=== PATIENT | female | born 1940 | race Caucasian/White ===

== ENCOUNTER 2018-07-14 08:42 | Emergency (ER) | payer MEDICARE, SELFPAY ==
[2018-07-14 08:43] VITALS: BP 160/70; PULSE 69; RESP 16; TEMP 36.3; O2SAT 99; BMI 25.5
--- NOTE | 2018-07-14 09:04 | RAD_ITS ---
STUDY: X-RAY - RIGHT KNEE REASON FOR EXAM: Female, 78 years old. Right-sided knee pain with loss of range of motion. TECHNIQUE: 4 view(s) of the knee. COMPARISON: None. FINDINGS: Normal visualized distal femur. Normal visualized proximal tibia and fibula. There is arthrosis of the proximal tibiofibular articulation. There is no demonstrated fracture. There is mild degenerative arthrosis of the medial femorotibial compartment. There is mild degenerative arthrosis of the lateral femorotibial compartment. There is moderate degenerative arthrosis of the patellofemoral articulation. There is a small joint effusion. There appear to be multiple soft tissue calcifications posterior to the knee. There is soft tissue swelling. RAD/Knee 4 or More Views IMPRESSION: 1. Degenerative arthropathy of the right knee with joint effusion. 2. No definite evidence for acute fracture. If there is still clinical concern for acute fracture, follow-up radiographs in 7-10 days maybe helpful in evaluating a healing radiographically occult fracture. Electronically Signed: Rosanne Champagne MD at 10:01 EDT , Service support ,
--- NOTE | 2018-07-14 10:02 | ED.DCSUM_ITS ---
- ER Visit Summary Date of Service: 07/14/18 Chief Complaint: Right knee pain History of Present Illness: The patient is a 78 F who states that she got up last night to urinate and when she went to turn she felt a grinding sensation in the right knee. She now notes swelling of the knee and pain over the inferior medial aspect of the knee. The patient states that a couple weeks ago she received an injection to the knee by pain management. She has been able to bear weight with the assistance of her . states that they have a walker she can use at home as well as a chair left. Physical Examination: Afebrile vital signs stable Gen: Well-nourished well-developed Head: Normocephalic atraumatic Eyes: Perrl EOMI ENT: TMs clear no rhinorrhea moist mucous membranes Neck: Supple no lymphadenopathy no JVD nontender CVS: Regular rate rhythm no murmurs normal S1-S2 Respiratory: No distress clear to auscultation bilaterally chest nontender Abdomen: Soft nontender nondistended normal bowel sounds no masses Back: Nontender Extremity: Right knee demonstrates infrapatellar swelling. There is no large joint effusion palpable. She has pain over the medial inferior aspect of the patella. Ligament testing appears stable. Skin: Normal color no rash Neuro: alert orientated ?3 CN II-XII intact normal strength sensation reflexes gait cerebellar Psych: Normal affect normal mood Test Results: X-rays revealed significant degenerative changes of the patella. There is no obvious fracture. Noted small joint effusion. Emergency Department Course and Treatment: Patient will use an Jay wrap. I suspect the grinding sensation she felt was the patella grinding on the distal femur. I recommend ice anti-inflammatories and limited range of motion for a short period. She can use her walker for support. We did discuss the possibility of meniscal and ligamentous injury and the need for follow-up if she is not improving. Impression: 1. Right knee pain 2. Degenerative joint disease of right knee This note was generated with [employer] dictation software. It may contain incorrect words, spelling, and punctuation that were not noted in review of the chart prio r to signing ED Disposition - Plan for ED Patient: Disposition: Home or Assisted Living Chief Complaint: Fall Instructions: ED Degenerative Joint Disease Referrals: Alberto Herr MD [Primary Care Provider] - 10-14 Days if not better Additional Instructions: Please use your walker for support Please apply ice to the knee and 20-minute sessions today and tomorrow Anti-inflammatories or Tylenol for pain If not improving please follow-up with your primary care physician.
[2018-07-14 10:20] VITALS: BP 138/77; PULSE 81; RESP 16; O2SAT 96
== END 2018-07-14 10:21 | disposition home or self-care (01) ==
PROVIDERS: Emergency Provider Emergency Medicine; Family Provider Internal Medicine; PCP Internal Medicine
DX: M17.11 Unilateral primary osteoarthritis, right knee (principal); I42.8 Other cardiomyopathies; I10 Essential (primary) hypertension; K21.9 Gastro-esophageal reflux disease without esophagitis; Z79.82 Long term (current) use of aspirin; Z79.899 Other long term (current) drug therapy; Z87.891 Personal history of nicotine dependence
CPT/HCPCS: 73564; 99282

== ENCOUNTER 2018-09-09 15:40 | Emergency (ER) | payer MEDICARE, SELFPAY ==
[2018-09-09 15:41] VITALS: BP 142/82; PULSE 73; RESP 17; TEMP 36.6; O2SAT 98; BMI 24.1
--- NOTE | 2018-09-09 15:53 | VDLE_ITS ---
Reason For Study: Foot pain RIGHT GSV is normal. CFV is compressible, spontaneous, phasic, competent and demonstrates normal augmentation. FV is compressible, spontaneous, phasic, competent and demonstrates normal augmentation. POP V is compressible, spontaneous, phasic, competent and demonstrates normal augmentation. T/P Trunk is compressible. PTV is compressible. RT PerV is compressible. Hypoechoic structure noted rt medial pop space measuring 1.6 cx 2.2 cm. Non-vascular. Procedure Exam performed in department. A preliminary report was called and/or faxed to Dr. Michael. Interpretation Summary There is no evidence of right lower extremity deep vein thrombosis. Right greater saphenous vein appears patent and compressible segmentally. Right medial popliteal space 1.6 x 2.2 cm Wilson's cyst Ordering Physician: Garcia Michael Referring Physician: Alberto Herr M.D. Performed By: Gricel Barnes RVT
--- NOTE | 2018-09-09 16:20 | ED.VISSUMM ---
- ER Visit Summary Date of Service: 09/09/18 Chief Complaint: Right leg swelling History of Present Illness: The patient is a 78 F presenting for evaluation secondary to right leg swelling. Patient reports that in July she fell and suffered a knee injury. She ports that she was seen in the emergency department for this and had an x-ray. Since then she has had improvement of her knee pain, but has had some progressive worsening of swelling in her right foot. Patient states that this specifically is gotten worse in the last week. Is causing some pain in her calf and her foot and some difficulty with putting on her shoe. She denies any chest pain or shortness of breath. She denies any fevers. She denies any new injuries. Patient states that she was seen in urgent care and they recommended she come to the ER for an ultrasound. Physical Examination: Physical exam unremarkable except for examination of the right lower extremity. There is trace to +1 edema from the knee to the foot to the patient's right lower extremity. This is nonpitting. There is mild erythema over the dorsum of the foot. No palpable cord, but the calf is tender to palpation. Normal range of motion of the hip knee ankle and foot. Normal sensation over all dermatomes. 2+ DP and PT pulses with normal cap refill. Test Results: Duplex ultrasound of the right leg is negative Emergency Department Course and Treatment: Patient presented for evaluation secondary to unilateral swelling of the leg. Duplex ultrasound was negative. Skin does not appear to be cellulitic, patient has normal circulation, there is no new injuries, I do not believe that this is vascular or infectious in etiology. Patient likely has nonspecific peripheral edema. She was recommended on compression and elevation she will follow-up with primary care. Disposition: Discharge Impression: 1. Right leg peripheral edema This note was generated with [employer] dictation software. It may contain incorrect words, spelling, and punctuation that were not noted in review of the chart prior to signing ED Disposition - Plan for ED Patient: Disposition: Home or Assisted Living Chief Complaint: Lower Extremity Injury Diagnosis: Leg edema, right Instructions: ED Leg Swelling Unilateral Referrals: Alberto Herr MD [Primary Care Provider] - 1 Week
--- NOTE | 2018-09-09 16:23 | ED.DCSUM_ITS ---
- ER Visit Summary Date of Service: 09/09/18 Chief Complaint: Right leg swelling History of Present Illness: The patient is a 78 F presenting for evaluation secondary to right leg swelling. Patient reports that in July she fell and suffered a knee injury. She ports that she was seen in the emergency department for this and had an x-ray. Since then she has had improvement of her knee pain, but has had some progressive worsening of swelling in her right foot. Patient states that this specifically is gotten worse in the last week. Is causing some pain in her calf and her foot and some difficulty with putting on her shoe. She denies any chest pain or shortness of breath. She denies any fevers. She denies any new injuries. Patient states that she was seen in urgent care and they recommended she come to the ER for an ultrasound. Physical Examination: Physical exam unremarkable except for examination of the right lower extremity. There is trace to +1 edema from the knee to the foot to the patient's right lower extremity. This is nonpitting. There is mild erythem a over the dorsum of the foot. No palpable cord, but the calf is tender to palpation. Normal range of motion of the hip knee ankle and foot. Normal sensation over all dermatomes. 2+ DP and PT pulses with normal cap refill. Test Results: Duplex ultrasound of the right leg is negative Emergency Department Course and Treatment: Patient presented for evaluation secondary to unilateral swelling of the leg. Duplex ultrasound was negative. Skin does not appear to be cellulitic, patient has normal circulation, there is no new injuries, I do not believe that this is vascular or infectious in etiology. Patient likely has nonspecific peripheral edema. She was recommended on compression and elevation she will follow-up with primary care. Disposition: Discharge Impression: 1. Right leg peripheral edema This note was generated with [employer] dictation software. It may contain incorrect words, spelling, and punctuation that were not noted in review of the chart prior to signing ED Disposition - Plan for ED Patient: Disposition: Home or Assisted Living Chief Complaint: Lower Extremity Injury Diagnosis: Leg edema, right Instructions: ED Leg Swelling Unilateral Referrals: Alberto Herr MD [Primary Care Provider] - 1 Week
== END 2018-09-09 16:38 | disposition home or self-care (01) ==
PROVIDERS: Emergency Provider Emergency Medicine; Family Provider Internal Medicine; PCP Internal Medicine
DX: R60.0 Localized edema (principal); I42.9 Cardiomyopathy, unspecified; Z79.82 Long term (current) use of aspirin; Z79.899 Other long term (current) drug therapy
CPT/HCPCS: 93971; 99282

== ENCOUNTER 2019-01-02 08:47 | Emergency (ER) | payer MEDICARE, SELFPAY ==
[2019-01-02 08:48] VITALS: BP 161/76; PULSE 74; RESP 16; TEMP 36.1; O2SAT 98; BMI 26.0
--- NOTE | 2019-01-02 09:03 | CT_ITS ---
STUDY: CT ABDOMEN AND PELVIS WITHOUT CONTRAST REASON FOR EXAM: Female, 78 years old. Chronic back pain. 3 week history of right hip pain. RADIATION DOSAGE (If Supplied By Facility): CTDIvol = ( 10.28 ) mGy, DLP = ( 444.25 ) mGycm TECHNIQUE: Transaxial images were obtained from the dome of the diaphragm to the symphysis pubis without oral contrast, and without intravenous contrast. Sagittal and coronal images were reconstructed. Individualized dose optimization techniques were used for this CT. COMPARISON: None. FINDINGS: Mild degree of increased markings at the lung bases suggestive of mild right basilar scarring. Coronary artery calcification. There is a 3.7 cm x 2.3 cm cyst in the superior left lobe of liver. This also evidence of a 1 cm x 0.8 cm cyst in the superior aspect of the right lobe of the liver. Normal gallbladder and extrahepatic biliary system. Borderline splenomegaly. Normal pancreas. Normal bilateral adrenal glands. Mild degree of right hydronephrosis and right hydroureter. No obstructive calculus is seen at this time. This may represent a recently passed calculus. Clinical correlation is recommended. Normal left kidney. Normal visualized stomach. Normal small intestine. Normal colon. The appendix is visualized and appears normal. There is diffuse atherosclerotic calcification of the abdominal aorta and its major visceral branches, without a demonstrated aneurysm. Normal inferior vena cava. There is borderline retroperitoneal lymphadenopathy with enlarged nodes no greater than 10mm in the short axis diameter. Normal urinary bladder. Calcified fibroid uterus. Normal abdominal wall. Mild dextroscoliosis. Moderate degree of disc space narrowing and spondylosis at the L5-S1 level. 50% loss of height of the T11, T12 and L1 vertebrae. Minimal retrolisthesis of L1 on L2. CT/Abdomen/Pelvis without Cont IMPRESSION: Hepatic cysts. Borderline splenomegaly. Mild right hydronephrosis and right hydroureter with no evidence of obstructive uropathy at this time. Degenerative changes of the lumbar spine loss of height of the T11, T12 and L1 vertebrae. Electronically Signed: Jesse Sullivan, at 10:03 EDT , Service support ,
--- NOTE | 2019-01-02 09:08 | ED.DCSUM_ITS ---
- ER Visit Summary Date of Service: 01/02/19 Chief Complaint: Right hip and flank pain History of Present Illness: The patient is a 78 F who presents with right hip and flank pain that has been getting worse over the past few days. Patient denies any trauma or injury. Patient states the pain is sharp and burning. Patient states the pain is worse with walking, moving, and sitting. Patient denies any paresthesias or weakness. Patient states nothing seems to help with the pain. Patient denies any fevers but admits to subjective chills. Patient also states she has been having some shortness of breath because of the pain. She also admits to some nausea because of the pain. Patient states she has a history of chronic back pain but this is different because it is burning and sharp. Physical Examination: Vital signs are stable. Patient is afebrile. Patient is in no acute distress. Oral mucosa is pink and moist. Neck is supple. Trachea is midline. There is no JVD noted. Heart was regular rate and rhythm. Lungs are clear bilaterally. There is good respiratory effort noted. Abdomen is soft. Bowel sounds are normal. There is some mild right CVA tenderness. There is no rebound or guarding noted. There is also tenderness over the right hip. There is no deformity noted. There is no pain with logrolling. There is no calf tenderness or swelling. Test Results: CBC was normal. Basic metabolic profile showed a mild hyponatremia of 133. Urinalysis was normal. Chest x-ray does not show any acute cardiopulmonary process. CT scan of the abdomen and pelvis was obtained. There is mild right hydronephrosis and hydroureter but there is no obstructive uropathy noted. There is no fracture of the right hip or pelvis. Emergency Department Course and Treatment: Patient was given an injection of morphine here. Patient felt better on reevaluation. Patient was able to ambulate here in the emergency department. Patient was instructed to follow-up with her primary care physician in 5-7 days. Patient was given a prescription for meloxicam. Patient was instructed to use ice to the area. Patient understood and was agreeable with the plan. All questions were answered. Disposition: Discharge home Impression: Right hip pain This note was generated with [employer] dictation software. It may contain incorrect words, spelling, and punctuation that were not noted in review of the chart prior to signing ED Disposition - Plan for ED Patient: Disposition: Home or Assisted Living Diagnosis: Right hip pain Instructions: ED Contusion Hip Prescriptions: Meloxicam [Mobic] 15 mg PO DAILY #10 tab Referrals: Alberto Herr MD [Primary Care Provider] - 5-7 Days
[2019-01-02] MEDS: Morphine 4 MG/ML Syringe IV (09:15)
[2019-01-02 09:28] LABS: Absolute Lymphocyte Count 1.16 X10^3/ul (0.83-4.51); Absolute Neutrophil Count 6.8 X10^3/uL (2.0-7.7); Basophil# 0.02 X10^3/uL; Basophil% 0.2 % (0-1); Eosinophil# 0.08 X10^3/uL; Eosinophils% 0.9 % (0-5); Hematocrit 41.7 % (37-47); Hemoglobin 14.7 g/dl (12.0-15.0); Lymphocyte # 1.16 X10^3/ul (4.0); Lymphocyte % 13.2 % (19-41); Mean Corp Hgb Conc 35.3 g/gl (32-36); Mean Corpuscular Hgb 33.8 pg (27.0-32.0); Mean Corpuscular Volume 95.9 fL (81-99); Mean Platelet Vol. 8.8 fl (6.2-12.0); Monocyte# 0.73 X10^3/uL; Monocyte% 8.3 % (0-10); Neutrophil # 6.77 X10^3/uL (2.7-7.7); Neutrophil % 77.3 % (47-70); Platelet Count 190 K/mm3 (150-450); RBC Distribution Width CV 12.7 % (11.6-14.6); RBC Distribution Width SD 44.1 fl (35.1-43.9); Red Blood Count 4.35 M/mm3 (4.2-5.4); White Blood Count 8.8 K/mm3 (4.4-11.0)
[2019-01-02 09:29] LABS: POSITIVE COUNT NO; POSITIVE DIFFERENTIAL NO; POSITIVE MORPHOLOGY NO
--- NOTE | 2019-01-02 09:31 | RAD_ITS ---
STUDY: X-RAY CHEST REASON FOR EXAM: Female, 78 years old. Shortness of breath/dyspnea. TECHNIQUE: AP and lateral views of the chest. COMPARISON: Comparison is made with prior study dated June 11, 2016. FINDINGS: The lungs are clear and expanded. There is no demonstrated pleural abnormality. There is borderline cardiomegaly. Normal mediastinum and rodrick. Normal visualized pulmonary arteries. There is atherosclerotic calcification of the aortic arch with tortuosity. There is demineralization of the osseous structures. There is degenerative osteoarthritis of the bilateral shoulders. There is no demonstrated abnormality of the visualized soft tissue structures of the upper abdomen. RAD/Chest PA and Lateral IMPRESSION: Borderline cardiomegaly. The lungs are clear. Electronically Signed: Jesse Sullivan, at 9:57 EDT , Service support ,
[2019-01-02 09:39] LABS: Anion Gap 8 (5-15); BUN 10 mg/dL (7-18); BUN/Creat Ratio 11.6 RATIO (10-20); Calcium,Total 9.1 mg/dL (8.5-10.1); Chloride 100 mmol/L (98-107); Creatinine, Serum 0.86 mg/dL (0.55-1.02); EST Glomerular Filtration Rate 67 mL/min (>60); Est Glom Filt Rate - Afr Amer 81 mL/min (>60); Estimated Creatinine Clearance 46.95 ml/min; Glucose 97 mg/dL (74-106); Potassium 4.8 mmol/L (3.5-5.1); Sodium Level 133 mmol/L (136-145)
[2019-01-02 10:20] LABS: Bacteria 0 SEEN /hpf (None Seen); Mucous, Urine 0 SEEN /hpf (<or=2+); Red Blood Cells-Urine 0 SEEN /hpf (0-5); White Blood Cells 0 SEEN /hpf (0-5)
[2019-01-02 10:21] LABS: Color, Urine Yellow (Yellow); Glucose, Dipstick Normal (Normal); Ketone-Dipstick Negative (Negative); Leukocyte Esterase-Dipstick Negative /ul (Negative); Nitrite-Dipstick Negative (Negative); Occult Blood-Urine Negative /ul (Negative); Protein-Dipstick Negative (Negative); Specific Gravity, Urine 1.005 (1.002-1.030); Urine Bilirubin Dipstick Negative (Negative); Urine Clarity Clear (Clear); Urine Urobilinogen Normal (Normal)
[2019-01-02 10:33] LABS: Squamous Epithelial Cells - UA 0-5 SEEN /hpf (5-10)
[2019-01-02 10:54] VITALS: BP 131/68; PULSE 74; RESP 15; O2SAT 96
== END 2019-01-02 10:54 | disposition home or self-care (01) ==
PROVIDERS: Emergency Provider Emergency Medicine; Family Provider Internal Medicine; PCP Internal Medicine
DX: M25.551 Pain in right hip (principal); R10.9 Unspecified abdominal pain; N13.30 Unspecified hydronephrosis; M54.9 Dorsalgia, unspecified; G89.29 Other chronic pain; E87.1 Hypo-osmolality and hyponatremia; I10 Essential (primary) hypertension; J45.909 Unspecified asthma, uncomplicated; K21.9 Gastro-esophageal reflux disease without esophagitis; Z79.82 Long term (current) use of aspirin; Z79.899 Other long term (current) drug therapy
CPT/HCPCS: 71046; 74176; 80048; 81001; 85025; 96374; 99283; A4216

== ENCOUNTER → 2019-08-29 12:35 | Outpatient (CLI) | payer MEDICARE, SELFPAY ==
[2019-08-10 11:37] VITALS: BMI 25.4
--- NOTE | 2019-08-29 12:36 | CDU_ITS ---
Reason For Study: Carotid artery disease Rt. Velocities/BP Lt. Velocities/BP Prox CCA 72.1/9.5 cm/sec. Prox CCA 76.8/10.7 cm/sec. Mid CCA 68.2/10.8 cm/sec. Mid CCA 65.4/11.6 cm/sec. Dist CCA 52.6/9.5 cm/sec. Dist CCA 59.8/12.6 cm/sec. Prox ICA 48.5/9.7 cm/sec. Prox ICA 62.9/13.5 cm/sec. Mid ICA 82.5/21.1 cm/sec. Mid ICA 102.3/22.5 cm/sec. Dist ICA 80.6/21.1 cm/sec. Dist ICA 83.9/22.5 cm/sec. Rt. ICA/CCA = 1.2. Lt. ICA/CCA = 1.6. Prox ECA 56 cm/sec. Prox ECA 91.5 cm/sec. Rt. Vert. 52.2/7.8 cm/sec. Lt. Vert. 30.8/15.2 cm/sec. Right Extracranial There is intimal thickening but no significant atherosclerotic plaque noted in the right common carotid artery. There is heterogeneous, irregular atherosclerotic plaque noted in the right internal carotid artery. There is intimal thickening but no significant atherosclerotic plaque noted in the right external carotid artery. Antegrade flow is noted in the right vertebral artery. Left Extracranial There is intimal thickening but no significant atherosclerotic plaque noted in the left common carotid artery. There is heterogeneous, irregular atherosclerotic plaque noted in the left internal carotid artery. The atherosclerotic plaque causes acoustic shadowing. There is intimal thickening but no significant atherosclerotic plaque noted in the left external carotid artery. Abnormal flow pattern noted in the left vertebral artery. Procedure Carotid Duplex 55774. Exam performed in department. Interpretation Summary Mild (<50%) stenosis right extracranial internal carotid. Mild (<50%) stenosis left extracranial internal carotid. Flow within the right verterbral artery is antegrade. Left vertebral flow is abnormal. Ordering Physician: Tripp Foster Referring Physician: Alberto Herr M.D. Performed By: Minerva Alan RVT
--- NOTE | 2019-08-29 12:36 | ECHOD_ITS ---
Reason For Study: Murmur Procedure This was a 2D Doppler, Color Flow transthoracic echocardiogram. The exam was of adequate technical quality. Exam performed in department. Left Ventricle Normal LV size. Mild concentric left ventricular hypertrophy. Left ventricular systolic function is normal. The estimated ejection fraction is 60 %. Septal motion consistent with IVCD. There is evidence of diastolic dysfunction. No regional wall motion abnormalities noted. Right Ventricle Normal RV size. Normal systolic function. Atria The left atrium is mildly enlarged. Normal right atrium. No doppler evidence for ASD. Mitral Valve There is no mitral annular calcification. Mild focal mitral valve calcification of the anterior leaflet. Moderate (2+) mitral valve insufficiency. Tricuspid Valve Normal tricuspid valve. Mild tricuspid valve insufficiency. Right ventricular systolic pressure estimated to be 35 mmHg. Aortic Valve Trisinus/trileaflet aortic valve. Normal aortic valve. Pulmonic Valve The pulmonic valve is not well visualized. Great Vessels Normal sized aortic root. Pericardium/Pleural No pericardial effusion. MMode/2D Measurements & Calculations LVIDd: 4.4 cm IVSd: 1.4 cm Ao root diam: 3.0 cm LVIDs: 2.7 cm LVPWd: 1.4 cm LA dimension: 3.9 cm RVDd: 3.1 cm FS: 39.0 % LAV(MOD-bp): 70.8 ml LA A4 area: 19.7 cm2 RA A4 area: 12.2 cm2 LAV(MOD-bp) Indexed: 41.5 ml/m2 LAV(MOD-sp2): 66.2 ml LAV(MOD-sp4): 64.4 ml Time Measurements MV dec time: 0.18 sec Doppler Measurements & Calculations MV E max dale: 66.9 cm/sec Lat Peak E' Dale: 4.6 cm/sec Med Peak E' Dale: 5.0 cm/sec MV A max dale: 101.4 cm/sec E/E' lat: 14.4 E/E' med: 13.5 MV E/A: 0.66 MV V2 max: 104.8 cm/sec MV P1/2t max dale: 90.6 cm/sec Ao V2 max: 101.9 cm/sec MV max P.4 mmHg MV P1/2t: 74.7 msec Ao max P.2 mmHg MV V2 mean: 60.0 cm/sec MV dec slope: 355.3 cm/sec2 MV mean P.7 mmHg MVA(P1/2t): 2.9 cm2 MV V2 VTI: 25.8 cm LV V1 max: 74.4 cm/sec PA V2 max: 127.1 cm/sec TR max dale: 282.7 cm/sec LV V1 max P.2 mmHg TR max P.0 mmHg Interpretation Summary Left ventricular systolic function is normal. The estimated ejection fraction is 60 %. Septal motion consistent with IVCD. Mild concentric left ventricular hypertrophy. The left atrium is mildly enlarged. Mild focal mitral valve calcification of the anterior leaflet. Moderate (2+) mitral valve insufficiency. Mild tricuspid valve insufficiency. Right ventricular systolic pressure estimated to be 35 mmHg. There is evidence of diastolic dysfunction. Ordering Physician: Tripp Foster Referring Physician: Tripp Foster Performed By: Sabino Pate RCS
== END ==
PROVIDERS: Family Provider Internal Medicine; PCP Internal Medicine; Referring Provider Internal Medicine Cardiovascular Disease; Visit Provider Internal Medicine Cardiovascular Disease
DX: I25.10 Atherosclerotic heart disease of native coronary artery without angina pectoris (principal); I35.9 Nonrheumatic aortic valve disorder, unspecified; I65.23 Occlusion and stenosis of bilateral carotid arteries; I73.9 Peripheral vascular disease, unspecified
CPT/HCPCS: 93306; 93880

== ENCOUNTER → 2020-12-06 06:18 | Outpatient (CLI) | payer MEDICARE, SELFPAY ==
[2020-11-26 15:22] VITALS: BMI 26.2
--- NOTE | 2020-12-06 06:23 | ECHOD_ITS ---
Reason For Study: CHEST PAIN Procedure This was a 2D Doppler, Color Flow transthoracic echocardiogram. The study was technically difficult. Exam performed in department. Left Ventricle Normal LV size. Sigmoid septum. Left ventricular systolic function is normal. The estimated ejection fraction is 65 %. Septal motion consistent with IVCD. There is evidence of diastolic dysfunction. Right Ventricle Normal RV size. Normal systolic function. Atria The left atrium is mildly enlarged. Normal right atrium. No doppler evidence for ASD. Mitral Valve There is no mitral annular calcification. Mild focal mitral valve calcification of the anterior leaflet. Moderate (2+) mitral valve insufficiency. Tricuspid Valve Normal tricuspid valve. Moderate (2+) tricuspid valve insufficiency. Right ventricular systolic pressure estimated to be 35 mmHg. Aortic Valve Trisinus/trileaflet aortic valve. Mild focal aortic valve calcification. Pulmonic Valve The pulmonic valve is not well visualized. Great Vessels Normal sized aortic root. Pericardium/Pleural No pericardial effusion. MMode/2D Measurements & Calculations LVIDd: 4.4 cm IVSd: 1.5 cm Ao root diam: 2.5 cm LVIDs: 3.1 cm LVPWd: 1.1 cm RVDd: 3.7 cm FS: 29.1 % LAV(MOD-bp): 56.5 ml LVAd ap4: 25.3 cm2 SV(MOD-sp4): 34.6 ml LAV(MOD-bp) Indexed: 31.7 ml/m2 EDV(MOD-sp4): 75.2 ml LAV(MOD-sp2): 56.8 ml EDV(sp4-el): 78.3 ml LAV(MOD-sp4): 54.6 ml LVAs ap4: 17.0 cm2 ESV(MOD-sp4): 40.6 ml ESV(sp4-el): 40.7 ml EF(MOD-sp4): 46.0 % EF(sp4-el): 48.0 % SV(sp4-el): 37.6 ml LA A4 area: 18.2 cm2 LA dimension(2D): 4.7 cm RA A4 area: 13.8 cm2 Doppler Measurements & Calculations MV E max dale: 72.9 cm/sec Lat Peak E' Dale: 8.6 cm/sec Med Peak E' Dale: 4.4 cm/sec MV A max dale: 99.0 cm/sec E/E' lat: 8.4 E/E' med: 16.6 MV E/A: 0.74 Ao V2 max: 93.4 cm/sec LV V1 max: 83.2 cm/sec PA V2 max: 101.3 cm/sec Ao max P.5 mmHg LV V1 max P.8 mmHg TR max dale: 282.3 cm/sec TR max P.9 mmHg Interpretation Summary The study was technically difficult. Left ventricular systolic function is normal. The estimated ejection fraction is 65 %. Sigmoid septum. Septal motion consistent with IVCD. The left atrium is mildly enlarged. Mild focal mitral valve calcification of the anterior leaflet. Moderate (2+) mitral valve insufficiency. Moderate (2+) tricuspid valve insufficiency. Mild focal aortic valve calcification. Right ventricular systolic pressure estimated to be 35 mmHg. There is evidence of diastolic dysfunction. Comment: Echo lucency compatible with and hepatic cyst-consider further evaluation with right upper quadrant ultrasound as deemed appropriate. Ordering Physician: Tripp Foster Referring Physician: Alberto Herr Performed By: Noa Vences, KOFFICS, RVT
--- NOTE | 2020-12-06 08:11 | STRESSREP_ITS ---
Stress Test Report Date: ??2020 Procedure: Pharmacologic stress nuclear imaging study Indications: Chest pain; left bundle branch block; CAD; PAD Consent: Per the patient Procedure: The patient underwent pharmacologic (Regadenoson 0.4mg ) evaluation with a peak heart rate of 93 beats per minute (67%predicted maximal heart rate) and a peak blood pressure of 108/88 mmHg. The baseline ECG demonstrated sinus rhythm; left bundle branch block. The peak pharmacologic ECG demonstrated new left bundle branch block. There were no cardiac dysrhythmias pretest, during pharmacologic infusion, or recovery. There was no complaint of chest discomfort during pharmacologic infusion or recovery. The examination was discontinued secondary to completion of protocol. Impression: 1. Pharmacologic (Regadenoson) evaluation 2. Peak pharmacologic ECG with continued left bundle branch block. 3. There were no cardiac dysrhythmias pretest, during pharmacologic infusion, or recovery. 4. Nuclear images pending Myocardial perfusion imaging study: Technique: The patient was injected with 11.3 millicuries of technetium 99m Cardiolite and subsequently rest SPECT Cardiolite nuclear imaging was obtained in the horizontal long, vertical long, and short axis views. The patient underwent pharmacologic (Regadenoson) evaluation with a peak heart rate of 93 beats per minute (67% percent predicted maximal heart rate) and a peak blood pressure of 108/88 mmHg. The patient was injected with 33.8 millicuries of technetium 99m Cardiolite and subsequently stress SPECT Cardiolite nuclear imaging was obtained in the horizontal long, vertical long, and short axis views. A gated Cardiolite study at peak stress was obtained. Interpretation: Rest and stress SPECT Cardiolite nuclear imaging status post realignment, normalization, and attenuation correction demonstrate relative uniform tracer uptake and myocardial perfusion appearing within normal limits. There is end systolic thickening and brightening. The gated Cardiolite study demonstrates myocardial thickening and inward wall motion. The reported LVEF is 63%. Impression: 1. Rest and stress SPECT Cardiolite nuclear imaging demonstrate relative uniform tracer uptake and myocardial perfusion appearing within normal limits. 2. The gated Cardiolite study reports an LVEF of 63%. This note was generated with Memento[employer] software. It may contain incorrect words, spelling, and punctuation that were not noted in checking the note before signing.
== END ==
PROVIDERS: PCP Internal Medicine; Referring Provider Internal Medicine Cardiovascular Disease; Visit Provider Internal Medicine Cardiovascular Disease
DX: I25.10 Atherosclerotic heart disease of native coronary artery without angina pectoris (principal); I25.9 Chronic ischemic heart disease, unspecified; I42.8 Other cardiomyopathies; I44.7 Left bundle-branch block, unspecified; I73.9 Peripheral vascular disease, unspecified; I10 Essential (primary) hypertension; E78.5 Hyperlipidemia, unspecified; R07.9 Chest pain, unspecified
CPT/HCPCS: 78452; 93017; 93306; A9500; A4216; J2785

== ENCOUNTER → 2020-12-13 09:23 | Outpatient (CLI) | payer MEDICARE, SELFPAY ==
[2020-11-26 15:22] VITALS: BMI 26.2
--- NOTE | 2020-12-13 09:29 | US_ITS ---
INDICATION: RUQ- hepatic cyst EXAMINATION: US Abdomen RUQ (limited) TECHNIQUE: Laird-scale and color Doppler imaging was performed of the abdomen. COMPARISON: None. Findings: The liver is homogenous and normal in echogenicity and echotexture. There is no evidence of contour nodularity. Multiple clusters of cysts are seen including a 2.3 x 3.2 x 3.9 cm cluster in the left lobe and a 1.9 x 2.2 x 3.8 cm cluster in the right lobe. No solid hepatic mass is identified.. The main portal vein is normal in size and patent demonstrating hepatopetal flow. The gallbladder is unremarkable without evidence of stones, wall thickening or pericholecystic fluid. Sonographic Krishnamurthy''s tenderness is not appreciated. There is no evidence of intrahepatic biliary ductal dilatation. The CBD is nondilated measuring 6 mm at the level of the emilia hepatis. The visualized portions of the pancreas are unremarkable without evidence of focal or diffuse enlargement. Specifically, the tail is obscured by overlying bowel gas. Right kidney measure 9.6 cm in length . The kidney has mildly increased in echogenicity compatible with medical renal disease. No focal renal lesion is identified. There is no evidence of hydronephrosis. US/Abdomen Limited IMPRESSION: Benign-appearing hepatic cysts. Mildly echogenic right kidney compatible with medical renal disease. Electronically Signed: Bruno Cao MD at 18:17 EST Tel , Service support ,
== END ==
PROVIDERS: PCP Internal Medicine; Referring Provider Internal Medicine Cardiovascular Disease; Visit Provider Internal Medicine Cardiovascular Disease
DX: K76.89 Other specified diseases of liver (principal)
CPT/HCPCS: 76705

== ENCOUNTER 2022-01-14 14:43 | Outpatient (CLI) | payer MEDICARE, SELFPAY ==
--- NOTE | 2022-01-14 14:51 | ECHOD_ITS ---
Reason For Study: Murmur Procedure This was a 2D Doppler, Color Flow transthoracic echocardiogram. The study was technically difficult. Exam performed in department. Left Ventricle Normal LV size. Segmental dysfunction with preserved ejection fraction (see wall motion). The estimated ejection fraction is 55 %. Diastolic function is indeterminate. Mid-Inferior: Hypokinetic. Mid-inferoseptal : Hypokinetic. Mid-anteroseptal : Hypokinetic. Anterior [place] : Not visualized. Inferior [place] : Not visualized. Septal [place] : Hypokinetic. Right Ventricle Normal RV size. Normal systolic function. Atria The left atrium is mildly enlarged. Normal right atrium. No doppler evidence for ASD. Mitral Valve There is no mitral annular calcification. Mild diffuse mitral valve thickening. The mitral valve chordae are thickened and/or calcified. Moderate (2+) mitral valve insufficiency. Tricuspid Valve Normal tricuspid valve. Mild tricuspid valve insufficiency. Right ventricular systolic pressure estimated to be 33 mmHg. Aortic Valve Trisinus/trileaflet aortic valve. Mild focal aortic valve calcification. Pulmonic Valve The pulmonic valve is not well visualized. Trivial pulmonic valve insufficiency. Great Vessels Normal sized aortic root. Pericardium/Pleural The aortic root is not well visualized. MMode/2D Measurements & Calculations LVIDd: 4.7 cm IVSd: 1.2 cm LA dimension: 4.3 cm LVIDs: 3.2 cm LVPWd: 1.0 cm RVDd: 3.4 cm FS: 30.9 % LAV(MOD-bp): 52.8 ml LA A4 area: 16.9 cm2 RA A4 area: 11.1 cm2 LAV(MOD-bp) Indexed: 30.6 ml/m2 LAV(MOD-sp2): 54.5 ml LAV(MOD-sp4): 51.1 ml Time Measurements MV dec time: 0.19 sec Doppler Measurements & Calculations MV E max dale: 74.4 cm/sec Lat Peak E' [place]: 5.0 cm/sec Med Peak E' [place]: 4.6 cm/sec MV A max dale: 128.3 cm/sec E/E' lat: 15.0 E/E' med: 16.0 MV E/A: 0.58 MV V2 max: 139.6 cm/sec MV P1/2t max dale: 87.6 cm/sec Ao V2 max: 91.7 cm/sec MV max P.8 mmHg MV P1/2t: 70.2 msec Ao max P.4 mmHg MV V2 mean: 64.4 cm/sec MV dec slope: 365.8 cm/sec2 MV mean P.1 mmHg MVA(P1/2t): 3.1 cm2 MV V2 VTI: 27.3 cm LV V1 max: 66.1 cm/sec PA V2 max: 115.6 cm/sec TR max dale: 273.9 cm/sec LV V1 max P.7 mmHg TR max P.0 mmHg ECHO/Echo Complete Interpretation Summary The study was technically difficult. Segmental dysfunction with preserved ejection fraction (see wall motion). The estimated ejection fraction is 55 %. The left atrium is mildly enlarged. Mild diffuse mitral valve thickening. The mitral valve chordae are thickened and/or calcified. Moderate (2+) mitral valve insufficiency. Mild tricuspid valve insufficiency. Mild focal aortic valve calcification. Trivial pulmonic valve insufficiency. Right ventricular systolic pressure estimated to be 33 mmHg. Diastolic function is indeterminate. Ordering Physician: Tripp Foster Referring Physician: Tripp Foster Performed By: Sabino Pate [facility]
== END 2022-01-14 23:59 | disposition home or self-care (01) ==
LOC: CVS 14:48
PROVIDERS: PCP Internal Medicine; Referring Provider Internal Medicine Cardiovascular Disease; Visit Provider Internal Medicine Cardiovascular Disease
DX: I25.10 Atherosclerotic heart disease of native coronary artery without angina pectoris (principal); I38 Endocarditis, valve unspecified
CPT/HCPCS: 93306

== ENCOUNTER 2022-05-18 06:14 | Day surgery (SDC) | payer MEDICARE, SELFPAY ==
[2022-05-18] VITALS (8 sets, daily range): BP systolic 110–186; BP diastolic 79–91; PULSE 65–77; RESP 16; TEMP 36.2–36.7; O2SAT 97–99; BMI 26.1
[2022-05-18] MEDS: Lactated Ringers 1,000 ML 15 ML IV (06:43)
--- NOTE | 2022-05-18 08:00 | RAD_ITS ---
PROCEDURE: INDICATION: GENICULAR NERVE BLOCK OR SM/ SL/ IF UNDER FLOURO EXAMINATION/TECHNIQUE: 4 spot intraoperative films were provided for interpretation from left knee genicular nerve block.. Total Fluoroscopic Time: 6 seconds AND number of Fluoroscopic Images: 4 COMPARISON: None. FINDINGS: Intraoperative images demonstrate 3 separate needle placements around the bilateral distal femoral diaphysis and the proximal medial tibial diaphysis. RAD/Fluoro Guided Needle Placement IMPRESSION: Left knee genicular nerve block. Please see intraoperative report for detailed findings. Electronically Signed: Sandor Bahena, at 12:50 EDT ,
[2022-05-18] MEDS: Bupivacaine 0.25% 30 ML Vial (08:05)
[2022-05-18] MEDS: MethylPREDNISolone Acetate 40 MG/ML Vial IM (08:05)
[2022-05-18] MEDS: Lidocaine 1% (5 ml sdv) 5 ML Vial (08:05)
--- NOTE | 2022-05-18 12:16 | OP.PCM_ITS ---
Report of Operation Date of Procedure: 05/18/22 Description of Surgical Findings:: PREOPERATIVE DIAGNOSIS: Osteoarthritis of the left knee, nonoperative knee pain POSTOPERATIVE DIAGNOSIS: Osteoarthritis of the left knee, nonoperative knee pa in PROCEDURE PERFORMED: Left knee superomedial, superolateral, and inferomedial genicular nerves steroid injection under fluoroscopy guidance. ANESTHESIA: MAC. BLOOD LOSS: Minimal. COMPLICATIONS: None. DESCRIPTION OF PROCEDURE: History and physical of today was reviewed. Risks and benefits of the procedure were explained. The patient understood and agreed to proceed. Informed consent was obtained. IV inserted per routine protocol. The patient was taken to the operating room and placed in the supine position. The left knee was prepped and draped in a sterile fashion using iodine x3. Under fluoroscopy guidance on AP view, the left knee was visualized. The skin and subcutaneous tissue was anesthetized with approximately 5 mL of 1% lidocaine using a 25-gauge regular needle at the vicinity of the superomedial, superolateral, and inferomedial genicular nerves. Under direct visualization of fluoroscopy on AP view as well as lateral view, starting on the left superomedia l, ending on the left inferomedial, passing through the left superolateral genicular nerves, the needle was passed through the skin. The tip of the needle was maneuvered and directed towards the diaphyseal junction of each corresponding nerve. Once tip of the needle was in the vicinity of the diaphysis and in contact with the bone, after confirmation on AP as well as lateral view and repeated negative aspiration for blood, a total of 12 mL of preservative-free 0.25% Marcaine with 80 mg of Depo-Medrol was injected in divided doses between those three levels. The needles were then removed intact. The patient experienced no sign or symptoms of intravascular injection. The patient experienced no paresthesia. The procedure was completed without any apparent difficulty or any complications. The patient appeared to tolerate it well. ASSESSMENT AND PLAN: This is an 82-year-old female with osteoarthritis of the left knee, nonoperative knee pain status post left knee superior medial, superior lateral, inferior medial genicular nerves steroid injection under fluoroscopic guidance, she patient will continue her current medications, patient will follow in approximately 2 weeks for reevaluation.
== END 2022-05-18 09:15 | disposition home or self-care (01) ==
LOC: SDC 06:15 → AC 06:16
PROVIDERS: PCP Internal Medicine; Referring Provider Anesthesiology Pain Medicine; Visit Provider Anesthesiology Pain Medicine
PROC: 3E0U3GC Introduction of Other Therapeutic Substance into Joints, Percutaneous Approach (ICD-10-PCS; CPT 20610; principal; 2022-05-18 07:55)
DX: M13.862 Other specified arthritis, left knee (principal); J43.9 Emphysema, unspecified; I42.8 Other cardiomyopathies; I25.10 Atherosclerotic heart disease of native coronary artery without angina pectoris; I44.7 Left bundle-branch block, unspecified; I10 Essential (primary) hypertension; K21.9 Gastro-esophageal reflux disease without esophagitis; E78.00 Pure hypercholesterolemia, unspecified; Z79.899 Other long term (current) drug therapy; Z87.891 Personal history of nicotine dependence
CPT/HCPCS: 64454; 01991; 76000; 77002; J7120

== ENCOUNTER → 2022-07-07 | Outpatient (CLI) | payer MEDICARE, SELFPAY ==
--- NOTE | 2022-07-07 09:06 | STRESSREP_ITS ---
Stress Test Report Date: 07-07-2022 Procedure: Pharmacologic stress nuclear imaging study Indications: CAD; left bundle branch block; hyperlipidemia; hypertension; chest pain Consent: Per the patient Procedure: The patient underwent pharmacologic (Regadenoson 0.4mg ) evaluation with a peak heart rate of 86 beats per minute (63%predicted maximal heart rate) and a peak blood pressure of 152/98 mmHg. The baseline ECG demonstrated normal sinus rhythm; left bundle branch block. The peak pharmacologic ECG demonstrated continued left bundle branch block. There were no cardiac dysrhythmias pretest, during pharmacologic infusion, or recovery. There was no complaint of chest discomfort during pharmacologic infusion or recovery. The examination was discontinued secondary to completion of protocol. Impression: 1. Pharmacologic (Regadenoson) evaluation 2. Peak pharmacologic ECG with continued left bundle branch block. 3. There were no cardiac dysrhythmias pretest, during pharmacologic infusion, or recovery. 4. Nuclear images pending Myocardial perfusion imaging study: Technique: The patient was injected with 10.8 millicuries of technetium 99m Cardiolite and subsequently rest SPECT Cardiolite nuclear imaging was obtained in the horizontal long, vertical long, and short axis views. The patient underwent pharmacologic (Regadenoson) evaluation with a peak heart rate of 86 beats per minute (63% percent predicted maximal heart rate) and a peak blood pressure of 152/98 mmHg. The patient was injected with 32.4 millicuries of technetium 99m Cardiolite and subsequently stress SPECT Cardiolite nuclear imaging was obtained in the horizontal long, vertical long, and short axis views. A gated Cardiolite study at peak stress was obtained. Interpretation: Rest and stress SPECT Cardiolite nuclear imaging status post realignment, normalization, and attenuation correction demonstrate relative uniform tracer uptake and myocardial perfusion appearing within normal limits. There is end systolic thickening and brightening. The gated Cardiolite study demonstrates myocardial thickening and inward wall motion. The reported LVEF is 52%. Impression: 1. Rest and stress SPECT Cardiolite nuclear imaging demonstrate relative uniform tracer uptake and myocardial perfusion appearing within normal limits. 2. The gated Cardiolite study reports an LVEF of 52%. This note was generated with NutshellMailation software. It may contain incorrect words, spelling, and punctuation that were not noted in checking the note before signing.
== END | disposition home or self-care (01) ==
LOC: CVS 06:18
PROVIDERS: PCP Internal Medicine; Referring Provider Nurse Practitioner Family; Visit Provider Nurse Practitioner Family
DX: R07.89 Other chest pain (principal); I42.8 Other cardiomyopathies; I73.9 Peripheral vascular disease, unspecified; I25.10 Atherosclerotic heart disease of native coronary artery without angina pectoris
CPT/HCPCS: 78452; 93017; A9500; A4216; J2785

== ENCOUNTER 2023-05-16 13:13 | Emergency (ER) | payer MEDICARE, SELFPAY ==
[2023-05-16 13:16] VITALS: BP 183/68; PULSE 81; RESP 20; TEMP 36.6; O2SAT 99
--- NOTE | 2023-05-16 13:27 | RAD_ITS ---
INDICATION: injury EXAMINATION/TECHNIQUE: X-RAY - LEFT XR Hand Min 3 Views 3 VIEWS COMPARISON: None. FINDINGS: SOFT TISSUES: No soft tissue swelling or gas. Small soft tissue calcification adjacent to the distal aspect of the proximal phalanx of the third finger. BONES/JOINTS: No acute fracture or subluxation.. Deformity of the head of the proximal phalanges of the third and fourth fingers be due to old injury. Calcification adjacent to the trapezium.. No sclerotic or destructive changes observed. RAD/Hand Min 3 Views IMPRESSION: No demonstrated acute osseous injury. Electronically Signed: Salazar Bowles MD at 14:13 EDT ,
--- NOTE | 2023-05-16 13:27 | RAD_ITS ---
INDICATION: injury EXAMINATION/TECHNIQUE: X-RAY - LEFT XR Wrist Min 3 Views 3 VIEWS COMPARISON: None. FINDINGS: SOFT TISSUES: Soft tissue swelling of the wrist. Small calcifications adjacent to the trapezium, dorsal aspect of the wrist and the region of the triangular fibrocartilage complex. BONES/JOINTS: No acute fracture or subluxation.. Normal alignment. Mild degenerative arthrosis of the first carpometacarpal joint.. No sclerotic or destructive changes observed. RAD/Wrist min 3 Views IMPRESSION: No evidence of acute fracture. Electronically Signed: Salazar Bowles MD at 14:15 EDT ,
--- NOTE | 2023-05-16 13:27 | RAD_ITS ---
INDICATION: Left rib pain. EXAMINATION/TECHNIQUE: X-RAY - XR Chest 2 Views COMPARISON: 01/02/2019. FINDINGS: LINES/DEVICES: None. LUNGS: No consolidation, edema or effusion. No pneumothorax. MEDIASTINUM AND CARDIOVASCULAR STRUCTURES: Cardiac silhouette not enlarged. Central airways and mediastinal contour are unremarkable. BONES AND SOFT TISSUES: The osseous structures are unchanged. The visualized ribs demonstrate no definite fracture. RAD/Chest PA and Lateral IMPRESSION: No radiographic evidence of acute cardiopulmonary disease. Electronically Signed: Salazar Bowles MD at 14:19 EDT ,
[2023-05-16 13:29] VITALS: BMI 25.4
--- NOTE | 2023-05-16 13:38 | EX.ED.GENINJ ---
HPI <HUE Rios - Last Filed: 05/16/23 15:19> History of Present Illness Chief Complaint: Fall Narrative Narrative: Patient presenting today due to a mechanical fall that occurred this afternoon. She reports that she was walking down a sidewalk and the sidewalk had a raised area that caused her to trip and fall onto her left side. She tried to catch herself with her left hand but is reporting pain to both her left hand and wrist. She reports pain to her left lateral rib cage. She reports shortness of breath at baseline due to her COPD that has not worsened. After her body hit the ground her head subsequently hit the ground on the L side, she denies loss of consciousness and use of blood thinners aside from a baby aspirin. She denies headache, neck pain, back pain, nausea, and vomiting. PFSH <HUE Rios - Last Filed: 05/16/23 15:19> [facility] Medical History Alcohol use Arthritis Asthma Asthma Atherosclerotic heart disease of [place] coronary artery without angina pectoris Back pain Bilateral carotid artery disease Cardiology follow-up encounter Chest pain COPD (chronic obstructive pulmonary disease) Dietary restriction Dyslipidemia Emphysema, unspecified Essential hypertension Excessive bleeding Former smoker Gastric reflux GERD (gastroesophageal reflux disease) Hepatic cyst High cholesterol History of echocardiogram History of pain when walking History of recent fall History of stress test HLD (hyperlipidemia) LBBB (left bundle branch block) Leg cramps Nonischemic cardiomyopathy Renovascular hypertension Shortness of breath on exertion Valvular heart disease Wears glasses Wears hearing aid Home Medications aspirin 81 mg tablet,delayed release 81 mg PO DAILY@0800 09/09/18 [History Last Taken Unknown] loratadine 10 mg tablet 10 mg PO DAILY 09/09/18 [History Last Taken Unknown] montelukast 10 mg tablet 10 mg PO DAILY 09/09/18 [History Last Taken Unknown] multivitamin with folic acid 400 mcg tablet 1 tab PO DAILY 09/09/18 [History Last Taken Unknown] omega-3 fatty acids-fish oil 340 mg-1,000 mg capsule 1 ea PO DAILY 09/09/18 [History Last Taken Unknown] ascorbic acid (vitamin C) 500 mg capsule 500 mg PO DAILY 08/08/19 [History Last Taken Unknown] budesonide-formoterol HFA 160 mcg-4.5 mcg/actuation aerosol inhaler (Symbicort) 2 puff inhalation BID 08/08/19 [History Last Taken Unknown] pantoprazole 20 mg tablet,delayed release 20 mg PO DAILY 08/08/19 [History Last Taken 05/18/22] tiotropium bromide 18 mcg capsule with inhalation device (Spiriva with HandiHaler) 1 cap inhalation QHS 08/08/19 [History Last Taken Unknown] albuterol sulfate 2.5 mg/3 mL (0.083 %) solution for nebulization 2.5 mg inhalation Q4H PRN SOB 03/04/20 [History Last Taken Unknown] albuterol sulfate 90 mcg/actuation aerosol inhaler (ProAir HFA) 2 puff inhalation Q6H PRN SOB 11/26/20 [History Last Taken Unknown] fluticasone propionate 50 mcg/actuation nasal spray,suspension (Allergy Relief (fluticasone)) 1 spray intranasal DAILY 11/26/20 [History Last Taken Unknown] carvedilol 12.5 mg tablet 12.5 mg PO BID #180 tabs 12/22/21 [Rx Last Taken 05/18/22] calcium carbonate 600 mg-vitamin D3 20 mcg (800 unit) tablet 1 tab PO DAILY 06/19/22 [History Last Taken Unknown] hydrocodone-acetaminophen 5-325mg 5mg-325mg 1 tab PO TID PRN 06/19/22 [History Last Taken Unknown] losartan 50 mg tablet 50 mg PO DAILY #90 tabs 08/19/22 [Rx Last Taken Unknown] isosorbide mononitrate 30 mg tablet,extended release 24 hr 30 mg PO DAILY #90 tabs 11/23/22 [Rx Last Taken Unknown] nitroglycerin 0.4 mg sublingual tablet See Rx Instructions .Route .COMPLEX #25 tabs 01/07/23 [Rx Last Taken Unknown] atorvastatin 40 mg tablet 40 mg PO QHS #90 tabs 04/19/23 [Rx Last Taken Unknown] Allergy/AdvReac Type Severity Reaction Status Date / Time adhesive tape AdvReac Itching Verified 05/16/23 13:16 latex AdvReac Rash Verified 05/16/23 13:16 nabumetone [From Relafen] AdvReac Nausea Verified 05/16/23 13:16 ramipril [From Altace] AdvReac Other Verified 05/16/23 13:16 sulfamethoxazole AdvReac Nausea Verified 05/16/23 13:16 [From Bactrim] trimethoprim [From Bactrim] AdvReac Nausea Verified 05/16/23 13:16 Surgical History History of breast biopsy History of cardiac catheterization History of tonsillectomy Hx of bilateral cataract extraction Hx of colonoscopy Social History Smoking Status: Former smoker alcohol intake: current details: occasional substance use type: does not use caffeine: Yes Type: coffee Number of servings: 2 ROS <HUE Rios - Last Filed: 05/16/23 15:19> ROS ED Constitutional Constitutional ED: Denies chills or fever(s) Eyes Eyes: Denies change in vision Cardiovascular Cardiovascular: Denies chest pain or palpitations Respiratory/Chest Respiratory/Chest: Denies cough or dyspnea Gastrointestinal Gastrointestinal: Denies abdominal pain, nausea or vomiting Musculoskeletal Musculoskeletal: Reports arthralgias; Denies back pain or neck pain Integumentary Denies Abrasions Neurologic Neurologic: Denies headache(s) or weakness EXAM <HUE Rios - Last Filed: 05/16/23 15:19> Physical Exam Const Vital Signs: 05/16/23 13:16 05/16/23 13:26 Temperature 97.8 F Temperature Source Temporal Pulse Rate 81 Respiratory Rate 20 H Respiratory Effort Normal Non-Labored Respiratory Depth Normal Respiratory Pattern Normal Blood Pressure 183/68 H Blood Pressure Mean 106 Pulse Ox 99 Oxygen Delivery Method Room Air Positive well nourished, well developed and no apparent distress General Appearance ED: well developed HEENT Reports normocephalic, head/scalp atraumatic and TM's clear Tympanic Membrane ED: Yes TM's clear bilateral Mouth ED: Yes moist mucous membranes normal Eyes PERRL and EOMs intact bilaterally Neck full ROM and supple Chest Wall inspection of chest normal Chest Narrative: Pain to palpation to the left lateral rib cage. No ecchymosis or crepitus. Resp normal respiratory effort and clear to auscultation bilaterally Cardio regular rate and regular rhythm GI soft to palpation, non-tender, non-distended and no masses Back/Spine normal ROM and normal to inspection Extremity Extremity Narrative: Ecchymosis to the dorsal aspect of the left hand with generalized pain to palpation to the left wrist and hand. Patient is able to wiggle her fingers, limited range of motion in the left wrist due to pain. No pain to any other extremity or to the left forearm. Radial pulses palpable, good capillary refill, sensation intact. Neuro oriented x3, CN's II-XII intact bilaterally, moves all extremities, no focal motor deficits and no sensory deficits noted Sensorium / Orientation: awake and alert Psych mental status grossly normal and thought process normal Skin no rashes or lesions noted and no wounds <Dr. Brandon Smith MD - Last Filed: 05/16/23 14:06> Physical Exam Const Vital Signs: 05/16/23 13:16 05/16/23 13:26 Temperature 97.8 F Temperature Source Temporal Pulse Rate 81 Respiratory Rate 20 H Respiratory Effort Normal Non-Labored Respiratory Depth Normal Respiratory Pattern Normal Blood Pressure 183/68 H Blood Pressure Mean 106 Pulse Ox 99 Oxygen Delivery Method Room Air MDM <HUE Rios - Last Filed: 05/16/23 15:19> [facility] Narrative Medical decision making narrative: Patient presenting due to a mechanical fall that occurred this afternoon. She tripped over a area of raised concrete on the sidewalk and fell onto her left side trying to catch herself with her left hand. She has discomfort to her left hand and wrist with ecchymosis to the dorsal aspect of the left hand. She also has pain to the left lateral rib cage with tenderness without crepitus or ecchymosis. She reports that after her body hit the ground her head hit the ground but did not take the brunt of the fall. I do not feel that any head imaging is indicated as patient is not on blood thinners and does not have a headache, nausea, or vomiting. X-ray of the left hand, wrist, and chest will be obtained to rule out fracture. X-rays are negative for acute findings. Patient has been given RICE instructions and is to take Tylenol for pain as needed. She will be discharged home in stable condition and is comfortable with plan. I have personally performed a face to face assessment of the patient and have reviewed the EULALIA Note. I performed a substantive portion of the visit including all aspects of the following. My coy findings include: History is 83-year-old female tripped and fell landing primarily on her left hand and wrist. No LOC. No significant head injury. She is on aspirin but no other blood thinners. Complaining of discomfort to her left hand and wrist and a bruise there. Also her left rib cage. Exam is [83-year-old female no acute distress. Vital signs stable afebrile. HP exam are quite traumatic no swelling or bruising. Pupils round reactive light. C-spine and neck nontender. Back nontender. Lungs clear. Heart regular rhythm. Left lateral rib cage mild tenderness. No crepitus. No subcu air. No bruising. No crepitance. Abdomen soft nontender. Moving all 4 extremities. She has a bruise on the radial side of her left wrist and dorsum of her hand. There is no bony deformity. She is able to do flexion extension. The shoulder left elbow and proximal forearm are nontender. Both lower extremities in the right upper extremity unremarkable. Neurologically she is awake and alert.] Medical Decision Making [83-year-old fall. X-ray of the left wrist showed chronic arthritic changes no fracture. X-ray of the left hand also chronic changes no fracture. Chest x-ray no obvious rib fractures.] Other additions or changes: [None] Radiography Diagnostic Testing: Clinical Impression(s) from Imaging Studies Chest X-Ray 05/16/23 13:27 IMPRESSION: No radiographic evidence of acute cardiopulmonary disease. Electronically Signed: Salazar Bowles MD at 14:19 EDT , Hand X-Ray 05/16/23 13:27 IMPRESSION: No demonstrated acute osseous injury. Electronically Signed: Salazar Bowles MD at 14:13 EDT , Wrist X-Ray 05/16/23 13:27 IMPRESSION: No evidence of acute fracture. Electronically Signed: Salazar Bowles MD at 14:15 EDT , <Dr. Brandon Smith MD - Last Filed: 05/16/23 14:06> [facility] Narrative Medical decision making narrative: I have personally performed a face to face assessment of the patient and have reviewed the EUALLIA Note. I performed a substantive portion of the visit including all aspects of the following. My coy findings include: History is 83-year-old female tripped and fell landing primarily on her left hand and wrist. No LOC. No significant head injury. She is on aspirin but no other blood thinners. Complaining of discomfort to her left hand and wrist and a bruise there. Also her left rib cage. Exam is [83-year-old female no acute distress. Vital signs stable afebrile. HP exam are quite traumatic no swelling or bruising. Pupils round reactive light. C-spine and neck nontender. Back nontender. Lungs clear. Heart regular rhythm. Left lateral rib cage mild tenderness. No crepitus. No subcu air. No bruising. No crepitance. Abdomen soft nontender. Moving all 4 extremities. She has a bruise on the radial side of her left wrist and dorsum of her hand. There is no bony deformity. She is able to do flexion extension. The shoulder left elbow and proximal forearm are nontender. Both lower extremities in the right upper extremity unremarkable. Neurologically she is awake and alert.] Medical Decision Making [83-year-old fall. X-ray of the left wrist showed chronic arthritic changes no fracture. X-ray of the left hand also chronic changes no fracture. Chest x-ray no obvious rib fractures.] Other additions or changes: [None] Radiography Chest X-Ray - ED: 2 View, Read by ED Physician, Heart, Lungs, Mediastinum, Bony Structures, No Acute Disease and Chronic Changes Diagnostic Testing: Clinical Impression(s) from Imaging Studies Chest X-Ray 05/16/23 13:27 IMPRESSION: No radiographic evidence of acute cardiopulmonary disease. Electronically Signed: Salazar Bowles MD at 14:19 EDT , Hand X-Ray 05/16/23 13:27 IMPRESSION: No demonstrated acute osseous injury. Electronically Signed: Salazar Bowles MD at 14:13 EDT , Wrist X-Ray 05/16/23 13:27 IMPRESSION: No evidence of acute fracture. Electronically Signed: Salazar Bowles MD at 14:15 EDT , Left wrist x-ray 3 views turbid by myself shows no acute fracture. No dislocation. Chronic changes consistent with arthritis. Left hand x-ray, 3 views, interpreted by myself again shows chronic changes but no acute fracture. Chest x-ray, 2 views shows chronic changes. Normal cardiac silhouette. No pneumothorax. No hemothorax. No obvious rib fractures. I discussed the x-rays with the patient and family. Again interpreted by myself. Discharge Plan Triage Chief Complaint: Fall ED Midlevel Provider: Barbara Strange ED Provider: Brandon Smith Dx/Rx/DC Orders Clinical Impression: Contusion of rib on left side, Fall, Contusion of hand, left, Contusion of left wrist Instructions: ED Contusion, Upper Extremity, ED Bruise, Rib Prescriptions: No Action pantoprazole 20 mg tablet,delayed release (DR/EC) 20 mg PO DAILY Spiriva with HandiHaler 18 mcg capsule, w/inhalation device 1 cap INHALATION QHS Symbicort 160-4.5 mcg/actuation HFA aerosol inhaler 2 puff INHALATION BID ascorbic acid (vitamin C) 500 mg capsule 500 mg PO DAILY albuterol sulfate 2.5 mg /3 mL (0.083 %) solution for nebulization 2.5 mg INHALATION Q4H PRN (Reason: SOB) fluticasone propionate [Allergy Relief (fluticasone)] 50 mcg/actuation spray,suspension 1 spray INTRANASAL DAILY Rx Instructions: administer into each nostril albuterol sulfate [ProAir HFA] 90 mcg/actuation HFA aerosol inhaler 2 puff INHALATION Q6H PRN (Reason: SOB) carvedilol 12.5 mg tablet 12.5 mg PO BID Qty: 180 4RF hydrocodone-acetaminophen 5-325 mg tablet 1 tab PO TID PRN Patient Comments: TAKE 1/2 TO 1 TAB BY MOUTH THREE TIMES A DAY NEEDED FOR PAIN nitroglycerin 0.4 mg tablet, sublingual See Rx Instructions .ROUTE .COMPLEX Qty: 25 3RF Dose Instruction: 0.4 MG SUBLINGUAL EVERY 5-15M NEEDED FOR CHEST PAIN Rx Instructions: 0.4 MG SUBLINGUAL EVERY 5-15M NEEDED FOR CHEST PAIN aspirin 81 MG tablet 81 mg PO DAILY@0800 montelukast 10 MG tablet 10 mg PO DAILY loratadine 10 MG tablet 10 mg PO DAILY omega-3 fatty acids-fish oil 1 EACH capsule 1 ea PO DAILY multivitamin with folic acid 1 TABLET tablet 1 tab PO DAILY calcium carbonate-vitamin D3 600 mg-20 mcg (800 unit) tablet 1 tab PO DAILY losartan 50 mg tablet 50 mg PO DAILY Qty: 90 3RF isosorbide mononitrate 30 mg tablet extended release 24 hr 30 mg PO DAILY Qty: 90 3RF atorvastatin 40 mg tablet 40 mg PO QHS Qty: 90 3RF Primary Care Provider: Alberto Herr Referrals: Alberto Herr MD [Primary Care Provider] - 5-7 Days Activity Restrictions/Additional Instructions: Please ice your left hand/wrist and left rib cage several times a day for the next few days. You can take Tylenol for pain. Follow-up with your PCP and return for any worsening of your symptoms. Disposition Disposition: Home, Self Care Discharge Date/Time: 05/16/23 14:13
== END 2023-05-16 14:13 | disposition home or self-care (01) ==
PROVIDERS: Emergency Provider Emergency Medicine; PCP Internal Medicine; Visit Provider Emergency Medicine
DX: S60.212A Contusion of left wrist, initial encounter (principal); I25.10 Atherosclerotic heart disease of native coronary artery without angina pectoris; S60.222A Contusion of left hand, initial encounter; S20.212A Contusion of left front wall of thorax, initial encounter; Z87.891 Personal history of nicotine dependence; E78.00 Pure hypercholesterolemia, unspecified; I10 Essential (primary) hypertension; Z79.899 Other long term (current) drug therapy; Z79.82 Long term (current) use of aspirin; Z79.51 Long term (current) use of inhaled steroids; K21.9 Gastro-esophageal reflux disease without esophagitis; Z98.41 Cataract extraction status, right eye; Z98.42 Cataract extraction status, left eye; W01.10XA Fall on same level from slipping, tripping and stumbling with subsequent striking against unspecified object, initial encounter; Y93.01 Activity, walking, marching and hiking; Y92.89 Other specified places as the place of occurrence of the external cause
CPT/HCPCS: 71046; 73110; 73130; 99282

== ENCOUNTER → 2023-12-06 | Outpatient (CLI) | payer MEDICARE, SELFPAY ==
--- NOTE | 2023-12-06 12:55 | CDU_ITS ---
Reason For Study: Bruit Rt Carotid Artery Rt. Velocities/BP Lt. Velocities/BP Prox CCA 56/6 cm/sec. Prox CCA 83/10 cm/sec. Mid CCA 50/6 cm/sec. Mid CCA 45/9 cm/sec. Dist CCA 43/8 cm/sec. Dist CCA 60/10 cm/sec. Prox ICA 49/12 cm/sec. Prox ICA 47/9 cm/sec. Mid ICA 74/20 cm/sec. Mid ICA 106/27 cm/sec. Dist ICA 93/19 cm/sec. Dist ICA 114/25 cm/sec. Rt. ICA/CCA = 1.9. Lt. ICA/CCA = 2.5. Prox ECA 40/0 cm/sec. Prox ECA 84/0 cm/sec. Rt. Vert. 57/7 cm/sec. Lt. Vert. 51/17 cm/sec. Right Extracranial There is heterogeneous, irregular atherosclerotic plaque noted in the right common carotid artery. There is heterogeneous, irregular atherosclerotic plaque noted in the right internal carotid artery. The right internal carotid artery is very tortuous. There is heterogeneous, irregular atherosclerotic plaque noted in the right external carotid artery. Antegrade flow is noted in the right vertebral artery. Left Extracranial There is heterogeneous, irregular atherosclerotic plaque noted in the left common carotid artery. There is heterogeneous, irregular atherosclerotic plaque noted in the left internal carotid artery. The atherosclerotic plaque causes acoustic shadowing. There is heterogeneous, irregular atherosclerotic plaque noted in the left external carotid artery. Bidirectional flow noted Lt Vert A. Procedure Carotid Duplex [id number]. This is a Carotid Duplex examination using B-mode, color flow and specral Doppler. Exam performed in department. VL/Carotid Duplex Ultrasound Interpretation Summary Mild (<50%) stenosis right extracranial internal carotid. Mild (<50%) stenosis left extracranial internal carotid. The Right vertebral is patent and antegrade. The Left vertebral flow is bidirectional. Ordering Physician: Edy Drew Referring Physician: Alberto Herr Performed By: Daniella Harper, TAN, RVT
--- NOTE | 2023-12-06 12:55 | ECHOD_ITS ---
Reason For Study: CAD/ASHD Procedure This was a 2D Doppler, Color Flow transthoracic echocardiogram. Exam performed in department. Left Ventricle Normal size and thickness. The left ventricular ejection fraction is 35 %. Stage 2 diastolic dysfunction. Right Ventricle Normal right ventricle. Atria The left atrium is moderately enlarged. Normal right atrium. Mitral Valve Moderate (2+) mitral valve insufficiency. Tricuspid Valve Mild tricuspid valve insufficiency. Right ventricular systolic pressure estimated to be 41 mmHg. Aortic Valve Aortic sclerosis, no stenosis. Pulmonic Valve The pulmonic valve is not well visualized. Great Vessels Normal sized aortic root. Pericardium/Pleural No pericardial effusion. MMode/2D Measurements & Calculations LVIDd: 5.0 cm IVSd: 1.1 cm Ao root diam: 2.6 cm LVIDs: 4.1 cm LVPWd: 1.1 cm RVDd: 2.6 cm FS: 19.3 % LAV(MOD-bp): 59.4 ml LVAd ap4: 32.6 cm2 LVAd ap2: 30.3 cm2 LAV(MOD-bp) Indexed: 34.0 ml/m2 LVLd ap4: 8.2 cm LVLd ap2: 8.5 cm LAV(MOD-sp2): 64.5 ml EDV(MOD-sp4): 108.1 ml EDV(MOD-sp2): 93.5 ml LAV(MOD-sp4): 49.2 ml EDV(sp4-el): 109.7 ml EDV(sp2-el): 92.3 ml LVAs ap4: 24.8 cm2 LVAs ap2: 19.9 cm2 LVLs ap4: 7.4 cm LVLs ap2: 7.0 cm ESV(MOD-sp4): 69.8 ml ESV(MOD-sp2): 48.1 ml ESV(sp4-el): 71.0 ml ESV(sp2-el): 48.3 ml EF(MOD-sp4): 35.5 % EF(MOD-sp2): 48.6 % EF(sp4-el): 35.3 % SV(MOD-sp4): 38.4 ml SV(MOD-sp2): 45.4 ml SV(sp4-el): 38.7 ml LA dimension(2D): 3.9 cm LA A4 area: 16.3 cm2 RA A4 area: 12.6 cm2 TAPSE: 2.3 cm Time Measurements MV dec time: 0.14 sec Doppler Measurements & Calculations MV E max dale: 76.4 cm/sec Lat Peak E' Dale: 5.8 cm/sec Med Peak E' Dale: 5.0 cm/sec MV A max dale: 111.6 cm/sec E/E' lat: 13.2 E/E' med: 15.4 MV E/A: 0.68 MV V2 max: 138.7 cm/sec MV P1/2t max dale: 120.7 cm/sec Ao V2 max: 115.2 cm/sec MV max P.7 mmHg MV P1/2t: 53.9 msec Ao max P.3 mmHg MV V2 mean: 81.4 cm/sec MV dec slope: 655.4 cm/sec2 Ao V2 mean: 88.1 cm/sec MV mean P.0 mmHg Ao mean P.3 mmHg MV V2 VTI: 31.7 cm MVA(P1/2t): 4.1 cm2 Ao V2 VTI: 26.8 cm AV (velocity ratio): 0.50 LV V1 max: 61.9 cm/sec MR max dale: 585.8 cm/sec PA V2 max: 90.0 cm/sec LV V1 max P.5 mmHg MR max P.3 mmHg PA V2 mean: 55.2 cm/sec LV V1 mean P.92 mmHg MR mean dale: 428.7 cm/sec LV V1 mean: 45.2 cm/sec MR mean P.2 mmHg LV V1 VTI: 13.5 cm MR VTI: 224.3 cm TR max dale: 299.4 cm/sec TR max P.9 mmHg ECHO/Echo Complete Interpretation Summary The left ventricular ejection fraction is 35 %. Stage 2 diastolic dysfunction. The left atrium is moderately enlarged. Moderate (2+) mitral valve insufficiency. Mild tricuspid valve insufficiency. Right ventricular systolic pressure estimated to be 41 mmHg. Aortic sclerosis, no stenosis. Ordering Physician: Edy Drew Referring Physician: Alberto Fermin Performed By: Noa Vences, TAN, RVT
--- OUTSIDE RECORDS SUMMARY | 2023-12-06 13:26 | XMS RPT_ITS | CCD ---
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 Name Role Phone EMERSON MERCEDES Unavailable Unavailable ALBERTO RUANO Unavailable Unavailable EMERSON MERCEDES Unavailable Unavailable Alberto Ruano Unavailable Unavailable EMERSON MERCEDES Unavailable Unavailable EMERSON MERCEDES Unavailable Unavailable Alberto Ruano MD Primary Care Provider [place], [place] S Unavailable Alberto Ruano MD Primary Care Provider Tsering, Oskar S Unavailable Tsering, Oskar S Unavailable Alberto Ruano MD Primary Care Provider [place], [place] S Unavailable Tsering CARABALLO, [place] S Unavailable ALBERTO RUANO Primary Care Unavailable ALBERTO RUANO Referring Unavailable ALBERTO RUANO Attending Unavailable ALBERTO RUANO Primary Care Unavailable ALBERTO RUANO Referring Unavailable ALBERTO RUANO Primary Care Unavailable ALBERTO RUANO Referring Unavailable ALBERTO RUANO Attending Unavailable ALBERTO RUANO Primary Care Unavailable ALBERTO RUANO Primary Care Unavailable BINDU, ALBERTO Rhoades Primary Care Unavailable ALBERTO RUANO Attending Unavailable BINDU, ALBERTO Rhoades Primary Care Unavailable ALBERTO RUANO Referring Unavailable BINDU, ALBERTO Rhoades Primary Care Unavailable BINDU, ALBERTO Rhoades Referring Unavailable ALBERTO RUANO Primary Care Unavailable ALBERTO RUANO Referring Unavailable Allergies Allergy Classification Reported Allergen(s) Allergy Type Date of Onset Reaction(s) Facility (20 sources) Latex; Translations: [LATEX] Propensity to adverse reactions to drug (disorder) 04-17-20 09 Itching [facility] Repository (20 sources) nabumetone; Translations: [NABUMETONE] Drug Allergy 06-09-20 05 GI Upset [facility] Repository (20 sources) ramipril; Translations: [RAMIPRIL] Drug Allergy 12-07-19 13 Other: See Comments [facility] Repository (20 sources) sulfamethoxazole / trimethoprim; Translations: [SULFAMETHOXAZOLE-T RIMETHOPRIM] Drug Allergy 01-23-20 11 GI Upset [facility] Repository (3 sources) OTHER; Translations: [OTHER] Propensity to adverse reactions (disorder) 01-13-20 06 AOF [facility] Repository (20 sources) bandaids [Other] Propensity to adverse reactions 01-13-20 Rash, Itching [facility] Medications Current Medications Medication Drug Class(es) Dates Sig (Normalized) Sig (Original) 1 ml denosumab 60 mg/ml prefilled syringe (1 source) RANK Ligand Inhibitor Start: 10-20-2023 End: 10-14-2024 denosumab 60 mg injection (PROLIA) Completed/Discontinued Medications Medication Drug Class(es) Dates Sig (Normalized) Sig (Original) acetaminophen 325 mg / HYDROcodone bitartrate 7.5 mg oral tablet (20 sources) Opioid Agonist Start: 11-19-2018 HYDROcodone-Acetami nophen (NORCO) 7.5-325 mg per tablet Indications: Chronic low back pain, unspecified back pain laterality, with sciatica presence unspecified Take 1 tablet by mouth three times daily. Per pain management. 0 11/19/2018 Active Problems Active Problems Problem Classification Problem Date Documented Da te Episodic/Chronic Chronic obstructive pulmonary disease and bronchiectasis (20 sources) Asthma-chronic obstructive pulmonary disease overlap syndrome; Translations: [Chronic obstructive pulmonary disease, unspecified] Onset: 5 Chronic Conduction disorders (20 sources) Left bundle branch block; Translations: [Left bundle-branch block, unspecified] Onset: 5 03-05-2015 Chronic Coronary atherosclerosis and other heart disease (20 sources) Ischemic cardiomyopathy; Translations: [Atherosclerotic heart disease of [place] coronary artery without angina pectoris] Onset: 6 Chronic Disorders of lipid metabolism (20 sources) Hyperlipidemia; Translations: [Other hyperlipidemia] Onset: 5 Chronic Esophageal disorders (20 sources) Gastroesophageal reflux disease; Translations: [Gastro-esophageal reflux disease without esophagitis] Onset: 5 06-09-2005 Chronic Essential hypertension (20 sources) Essential (primary) hypertension; Translations: [Essential hypertension] Onset: 8 Chronic Gastrointestinal hemorrhage (1 source) Black feces; Translations: [Melena] Episodic Immunizations and screening for infectious disease (4 sources) Needs influenza immunization; Translations: [Encounter for immunization] Episodic Inflammatory diseases of female pelvic organs (1 source) Subacute vaginitis; Translations: [Subacute and chronic vaginitis] 07-28-2023 Episodic Menopausal disorders (20 sources) Atrophic vaginitis; Translations: [Postmenopausal atrophic vaginitis] Onset: 9 10-02-2009 Chronic Occlusion or stenosis of precerebral arteries (3 sources) Bilateral stenosis of carotid arteries; Translations: [Occlusion and stenosis of bilateral carotid arteries] Chronic Osteoarthritis (20 sources) Degenerative joint disease involving multiple joints; Translations: [Polyosteoarthritis, unspecified] Onset: 5 07-08-2017 Chronic Other circulatory disease (20 sources) Disorder of carotid artery; Translations: [Disorder of arteries and arterioles, unspecified] Onset: 6 07-08-2017 Chronic Other gastrointestinal disorders (2 sources) Mass of left lower quadrant of abdomen; Translations: [Left lower quadrant abdominal swelling, mass and lump] 07-28-2023 Episodic Other upper respiratory disease (20 sources) Allergic rhinitis; Translations: [Allergic rhinitis, unspecified] Onset: 5 Chronic Other upper respiratory disease (1 source) Allergic rhinitis, unspecified; Translations: [Allergic rhinitis, unspecified seasonality, unspecified trigger] Onset: 7 Chronic Melinda-; endo-; and myocarditis; cardiomyopathy (except that caused by tuberculosis or sexually transmitted disease) (20 sources) Cardiomyopathy; Translations: [Other cardiomyopathies] Onset: 5 07-08-2017 Chronic Syncope (1 source) Near syncope; Translations: [Syncope and collapse] Episodic Unclassified (1 source) Unknown / UNK(Unknown) Onset: 7 Past or Other Problems Problem Classification Problem Date Documented Da te Episodic/Chronic Abdominal hernia (2 sources) Spigelian hernia; Translations: [Ventral hernia without obstruction or gangrene] Onset: 08-16-2023 08-16-2023 Episodic Abdominal pain (3 sources) Left lower quadrant pain; Translations: [Left lower quadrant pain] Onset: 07-28-2023 07-28-2023 Episodic Other and unspecified benign neoplasm (20 sources) Benign neoplasm of colon; Translations: [Benign neoplasm of colon, unspecified] Onset: 04-10-2008 04-10-2008 Episodic Other gastrointestinal disorders (1 source) Left lower quadrant abdominal swelling, mass and lump; Translations: [Abdominal mass, left lower quadrant] Onset: 07-28-2023 Episodic Pathological fracture (20 sources) Pathological fracture of vertebra due to osteoporosis; Translations: [Other osteoporosis with current pathological fracture, vertebra(e), subsequent encounter for fracture with routine healing] Onset: 07-13-2017 07-13-2017 Episodic Residual codes; unclassified (20 sources) Insomnia; Translations: [Insomnia, unspecified] Onset: 05-17-2013 05-17-2013 Episodic Spondylosis; intervertebral disc disorders; other back problems (20 sources) Low back pain; Translations: [Lumbago] Onset: 05-17-2013 09-29-2021 Episodic Results Test Name Value Interpretation Reference Range Facil ity Vital Signs Date Time Vital Sign Value Performing Clinician Faci lity 07-28-2023 14:52-0400 Diastolic blood pressure 90 mm[Hg] Alberto Ruano MD Work Phone: [facility] 07-28-2023 14:52-0400 Heart rate 72 /min Alberto Ruano MD Work Phone: [facility] 07-28-2023 14:52-0400 Systolic blood pressure 147 mm[Hg] Alberto Ruano MD Work Phone: [facility] 07-28-2023 14:42-0400 Body height 159 cm Alberto Ruano MD Work Phone: [facility] 07-28-2023 14:42-0400 Body weight 69.31 kg Alberto Ruano MD Work Phone: [facility] 07-28-2023 14:42-0400 Respiratory rate 16 /min Alberto Ruano MD Work Phone: [facility] 07-28-2023 14:42-0400 SaO2% (BldA) [Mass fraction] 98 % Alberto Ruano MD Work Phone: [facility] 01-13-2023 14:15-0400 Body weight 68.49 kg Alberto Ruano MD Work Phone: [facility] 01-13-2023 14:15-0400 Diastolic blood pressure 82 mm[Hg] Alberto Ruano MD Work Phone: [facility] 01-13-2023 14:15-0400 Heart rate 65 /min Alberto Ruano MD Work Phone: [facility] 01-13-2023 14:15-0400 Respiratory rate 16 /min Alberto Ruano MD Work Phone: [facility] 01-13-2023 14:15-0400 SaO2% (BldA) [Mass fraction] 98 % Alberto Ruano MD Work Phone: [facility] 01-13-2023 14:15-0400 Systolic blood pressure 124 mm[Hg] Alberto Ruano MD Work Phone: [facility] 07-08-2022 14:38-0400 Body temperature 97.3 [degF] Alberto Ruano MD Work Phone: [facility] 07-08-2022 14:38-0400 Body weight 67.13 kg Alberto Ruano MD Work Phone: [facility] 07-08-2022 14:38-0400 Diastolic blood pressure 80 mm[Hg] Alberto Ruano MD Work Phone: [facility] 07-08-2022 14:38-0400 Heart rate 60 /min Alberto Ruano MD Work Phone: [facility] 07-08-2022 14:38-0400 Respiratory rate 12 /min Alberto Ruano MD Work Phone: [facility] 07-08-2022 14:38-0400 Systolic blood pressure 136 mm[Hg] Alberto Ruano MD Work Phone: [facility] 03-06-2022 14:00-0400 Body height 160 cm Respiratory Wstr Work Phone: [facility] 03-06-2022 14:00-0400 Body weight 68.95 kg Respiratory Wstr Work Phone: [facility] 03-06-2022 14:00-0400 Heart rate 63 /min Respiratory Wstr Work Phone: [facility] 03-06-2022 14:00-0400 Respiratory rate 12 /min Respiratory Wstr Work Phone: [facility] 03-06-2022 14:00-0400 SaO2% (BldA) [Mass fraction] 99 % Respiratory Wstr Work Phone: [facility] 01-02-2022 08:41-0400 Body height 160 cm Alberto Ruano MD Work Phone: [facility] 01-02-2022 08:41-0400 Body temperature 97 [degF] Alberto Ruano MD Work Phone: [facility] 01-02-2022 08:41-0400 Body weight 69.4 kg Alberto Ruano MD Work Phone: [facility] 01-02-2022 08:41-0400 Diastolic blood pressure 78 mm[Hg] Alberto Ruano MD Work Phone: [facility] 01-02-2022 08:41-0400 Heart rate 78 /min Alberto Ruano MD Work Phone: [facility] 01-02-2022 08:41-0400 Respiratory rate 16 /min Alberto Ruano MD Work Phone: [facility] 01-02-2022 08:41-0400 Systolic blood pressure 132 mm[Hg] Alberto Ruano MD Work Phone: [facility] Encounters Encounter Date Encounter Type Care Provider Facility Start: 11-17-2023 End: 11-17-2023 ambulatory ALBERTO RUANO Facility:[facility] Start: 11-17-2023 End: 11-17-2023 Nursing evaluation of patient and report Mi Nurse Work Phone: [facility] Procedures Date Procedure Procedure Detail Performing Clinician Start: 07-28-2023 PFIZER-BIONTECH COVI D-19 VACCINE ( SEASON) AGE 12+ YR Alberto Ruano MD Work Phone: Start: 07-28-2023 INFLUENZA VACCINE, P RSV FREE, AGE 65+ YR, HIGH DOSE, QUADRIVALENT (FLUZONE HIGH-DOSE) Alberto Ruano MD Work Phone: Start: 07-08-2022 PFIZER-BIONTECH COVI D-19 BIVALENT BOOSTER VACCINE, AGE 12+ YR Alberto Ruano MD Work Phone: Start: 07-08-2022 INFLUENZA SEASONAL QUADRIVALENT HIGH DOSE AGE 65+ Alberto Ruano MD Work Phone: Start: 04-10-2022 Radiologic examinati on knee 1/2 views [facility] Provider Start: 03-06-2022 Spmtry w/vc expirato ry joseph w/wo mxml vol vntj Stephanie Cruz PA-C Work Phone: Plan of Treatment Date Care Activity Detail Author Start: 07-28-2026 Diabetes Screening Diabetes Screening [facility] Start: 04-09-2026 Diabetes Screening Diabetes Screening [facility] Start: 01-02-2025 DIABETES SCREEN DIABETES SCREEN [facility] Start: 04-09-2024 Hepatitis B surface antibody level LDL Cholesterol [facility] Start: 10-04-2023 Advance Directive Discussion Advance Directive Discussion [facility] Start: 10-04-2023 Depression Assessment Depression Assessment [facility] Start: 06-04-2023 Influenza vaccination Influenza Vaccine (#1) [facility] Start: 04-02-2023 End: 06-02-2023 25-hydroxyvitamin D3 [Mass/volume] in Serum or Plasma VITAMIN D 25 HYDROXY Lab Routine Osteoporotic compression fracture of spine with routine healing Expected: 04/02/2023, Expires: 06/02/2023 [facility] Work Phone: Immunizations Immunization Date Immunization Notes Care Provider Servando [email or web address] 07-28-2023 COVID-19 vaccine, ag e 12+ yr, season (TVShow Time-BIONTECH) Alberto Ruano MD Work Phone: [facility] Work Phone: 07-28-2023 influenza (HD-IIV4) vaccine, age 65+ yr, high dose, quadrivalent, PF (FLUZONE HIGH-DOSE) Alberto Ruano MD Work Phone: [facility] Work Phone: 07-08-2022 COVID-19 booster vaccine, age 12+ yr, bivalent (PFIZER-BIONTECH) Alberto Ruano MD Work Phone: [facility] Work Phone: 07-08-2022 influenza, high-dose , quadrivalent vaccine (FLUZONE HIGH DOSE QUADRIVALENT) Alberto Ruano MD Work Phone: [facility] Work Phone: 07-08-2022 influenza virus vacc ine, unspecified formulation Alberto Ruano MD Work Phone: [facility] 07-12-2021 influenza, high-dose , quadrivalent vaccine (FLUZONE HIGH DOSE QUADRIVALENT) Alberto Ruano MD Work Phone: [facility] 11-28-2020 COVID-19 vaccine, fu ll dose (MODERNA) Alberto Ruano MD Work Phone: [facility] Work Phone: 10-31-2020 COVID-19 vaccine, fu ll dose (MODERNA) Alberto Ruano MD Work Phone: [facility] Work Phone: 06-23-2020 influenza, high dose seasonal, preservative-free Alberto Ruano MD Work Phone: [facility] Work Phone: 07-28-2019 influenza, high dose seasonal, preservative-free Alberto Ruano MD Work Phone: [facility] 07-13-2018 influenza, high dose seasonal, preservative-free Albetro Ruano MD Work Phone: [facility] 07-08-2017 influenza, high dose seasonal, preservative-free Alberto Ruano MD Work Phone: [facility] 07-03-2016 influenza, high dose seasonal, preservative-free Alberto Ruano MD Work Phone: [facility] 07-03-2016 pneumococcal polysaccharide vaccine, 23 valent Alberto Ruano MD Work Phone: [facility] 07-11-2015 influenza, high dose seasonal, preservative-free Alberto Ruano MD Work Phone: [facility] 03-06-2015 pneumococcal conjuga te vaccine, 13 valent Alberto Ruano MD Work Phone: [facility] 08-03-2013 influenza, seasonal, injectable, preservative free Alberto Ruano MD Work Phone: [facility] Work Phone: 07-10-2013 influenza virus vacc ine, unspecified formulation Alberto Ruano MD Work Phone: [facility] 07-07-2012 influenza virus vacc ine, unspecified formulation Alberto Ruano MD Work Phone: [facility] 07-01-2011 influenza virus vacc ine, unspecified formulation Alberto Ruano MD Work Phone: [facility] Work Phone: 10-23-2009 novel influenza-H1N1 -09, all formulations Alberto Ruano MD Work Phone: [facility] Work Phone: 07-18-2009 influenza virus vacc ine, unspecified formulation Alberto Ruano MD Work Phone: [facility] 04-19-2009 tetanus and diphther ia toxoids, adsorbed, preservative free, for adult use (2 Lf of tetanus toxoid and 2 Lf of diphtheria toxoid) Alberto Ruano MD Work Phone: [facility] Work Phone: 02-13-2009 zoster vaccine, live Alberto Ruano MD Work Phone: [facility] Work Phone: 08-09-2008 influenza virus vacc ine, unspecified formulation Alberto Ruano MD Work Phone: [facility] Work Phone: 08-09-2007 influenza virus vacc ine, unspecified formulation Alberto Ruano MD Work Phone: [facility] 10-04-2006 pneumococcal polysaccharide vaccine, 23 valent Alberto Ruano MD Work Phone: [facility] Work Phone: 07-30-2006 influenza virus vacc ine, unspecified formulation Alberto Ruano MD Work Phone: [facility] 06-08-2000 pneumococcal polysaccharide vaccine, 23 valent Alberto Ruano MD Work Phone: [facility] Work Phone: 08-28-1974 pneumococcal polysaccharide vaccine, 23 valent Alberto Ruano MD Work Phone: [facility] Work Phone: Payers Date Payer Category Payer Medicare AETNA MEDICARE A ETNA MEDICARE PPO [id number] 2021-Present [phone] [address] [place] [address] PPO [id number] 2021 Medicare AETNA MEDICARE A ETNA MEDICARE PPO [id number] 2021-Present [phone] [address] [place] [address] PPO [id number] 2021 Medicare [id number] Medicare [id number] Social History Date Type Detail Facility Start: 07-01-2011 End: 07-08-2022 Tobacco smoking status NHIS Ex-smoker [facility] Work Phone: End: 10-04-1984 History of tobacco use Current smoker [facility] Work Phone: End: 10-04-1984 History of tobacco use Cigarette Smoker [facility] Work Phone: Start: 01-02-2022 End: 10-28-2023 Alcohol intake Current drinker of alcohol (finding) [facility] Start: 01-02-2022 History SDOH Alcohol Frequency 3 [facility] Start: 01-02-2022 History SDOH Alcohol Std Drinks 1 [facility] Start: 01-02-2022 History SDOH Social Connections Phone 5 [facility] Start: 01-02-2022 History SDOH Social Connections Get Together 2 [facility] Start: 01-02-2022 History SDOH Physica l Activity DPW 0 [facility] Start: 1940 Sex Assigned At Not on file C [facility] Start: 12-23-2021 End: 07-08-2022 Exposure to SARS-CoV-2 (event) Not sure [facility] Start: 07-01-2011 End: 07-28-2023 Cigarettes smoked current (pack per day) - Reported 1 [facility] Work Phone: Start: 07-01-2011 End: 07-08-2022 Tobacco use and exposure Smokeless tobacco non-user [facility] Work Phone: Start: 01-02-2022 End: 07-28-2023 Social connection and isolation panel [facility] Work Phone: Do you belong to any clubs or organizations such as sabianism groups, unions, fraternal or athletic groups, or school groups? No [facility] Work Phone: Are you now , , , , never or living with a partner? [facility] Work Phone: How often to you hav e a drink containing alcohol? 2-4 times a month [facility] Work Phone: How many standard dr inks containing alcohol do you have on a typical day? 1 or 2 [facility] Work Phone: How often do you hav e 6 or more drinks on 1 occasion? Never [facility] Work Phone: Adult Depression Scr eening Assessment 1 [facility] Work Phone: Do you feel stress - tense, restless, nervous, or anxious, or unable to sleep at night because your mind is troubled all the time - these days [OSQ] Not at all [facility] Work Phone: Clinical Notes 05-02-2015 to 11-17-2023 Adeline Maria LPN - 11/17/2023 1:17 PM ESTTelephone Encounter - Hui Arnold - 09/06/2023 3:13 PM ESTTelephone Encounter - Shannan Le - 09/06/2023 10:16 AM ESTPatient Instructions Note Date & Type Note Facility 11-17-2023 Note HNO ID: [id number] Author: ADELINE MARIA LPN Service: ? Author Type: LICENSED NURSE Type: Progress Notes Filed: 11/17/2023 13:19 Note Text: Patient presents for Prolia injection. Denies any problems at this time. Patient instructed on any SE of medication, verbalized understanding and agreed to proceed with treatment. Tolerated injection well. Adeline Maria LPN [facility] 11-17-2023 History of Presen t illness Narrative Patient presents for Prolia injection. Denies any problems at this time. Patient instructed on any SE of medication, verbalized understanding and agreed to proceed with treatment. Tolerated injection well. Adeline Maria LPN documented in this encounter [facility] 10-28-2023 Note HNO ID: [id number] Author: ALBERTO RUANO MD Service: ? Author Type: Physician Type: Progress Notes Filed: 10/28/2023 14:28 Note Text: This note was created using Kiyonriter. Subjective Nano Aguilar is a 83 year old female. She had no new concerns. We reviewed test results. Abdominal hernia was asymptomatic. Vaginitis resolved. She stopped Boniva and will start Prolia. 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 Medications were not changed. Vaccination questions were answered. Review of Systems Constitutional: Negative. Respiratory: Negative. Gastrointestinal: Negative. 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 isosorbide mononitrate ER (IMDUR) 30 mg 24 hr tablet Take 1 tablet by mouth once daily. losartan (COZAAR) 50 mg tablet Take 1 tablet by mouth once daily. nitroglycerin sublingual (NITROSTAT) 0.4 mg SL tablet Dissolve 1 tablet under the tongue. DISSOLVE ONE(1) TABLET UNDER THE TOUNGUE NEEDED FOR CHEST PAIN,EVERY 5 MIN X3 carvedilol (COREG) 12.5 mg tablet Take 1 tablet by mouth twice daily. atorvastatin (LIPITOR) 40 mg tablet Take 1 tablet by mouth once daily. HYDROcodone-Acetaminophen (NORCO) 7.5-325 mg per tablet Take 1 tablet by mouth three times daily. Per pain management. desoximetasone (TOPICORT) 0.25 % cream Apply 1 application to affected area once daily as needed (Apply sparingly to neck, face. Avoid eyes and mouth.). albuterol (PROVENTIL) 2.5 mg /3 mL (0.083 %) nebulizer solution Use 3 mL via nebulizer every 4 hours as needed for Wheezing/Shortness of Breath. DX: ICD9: 493.00, ICD10: J45.909 CALCIUM CARBONATE (CALTRATE 600 ORAL) Take 2 tablets by mouth once daily. MULTIVIT WITH CALCIUM,IRON,MIN (MULTIPLE VITAMIN, WOMENS ORAL) Take 1 capsule by mouth once daily. cholecalciferol, Vitamin D3, 400 unit Tab Take 1 tablet by mouth once daily. aspirin(ECOTRIN LOW STRENGTH 81 MG TAB) Take one(1) tablet daily. ascorbic acid(VITAMIN C 500 MG TAB) Take one(1) tablet daily. FISH ALO-RCZCF-1-COENZYME Q10 1,900 MG-640 MG-50 MG/2.5 G ORAL PACKET Take one(1) tablet daily. loratadine (CLARITIN) 10 mg tablet TAKE 1 TABLET BY MOUTH EVERY DAY NEEDED FOR ALLERGIES montelukast (SINGULAIR) 10 mg tablet Take 1 tablet by mouth once daily. budesonide-formoterol (SYMBICORT) 160-4.5 mcg/actuation inhaler Inhale 2 Puffs as instructed two times a day. pantoprazole DR (PROTONIX) 20 mg tablet Take 1 tablet by mouth daily before breakfast. Take on empty stomach, 1/2 hr before meal. tiotropium (SPIRIVA WITH HANDIHALER) 18 mcg inhalation capsule 1 capsule once daily. INHALE CONTENTS OF 1 CAPSULE INSTRUCTED Current Facility-Administered Medications Medication Dose Route Frequency denosumab 60 mg injection (PROLIA) 60 mg SUBCUTANEOUS Q 6 MONTH Objective BP 119/81 (BP Site: Left Arm, BP Position: Sitting, BP Cuff Size: Large Adult) Pulse 67 Temp 36.8 ?C (98.2 ?F) (Temporal) Resp 18 Wt 68 kg (150 lb) SpO2 98% BMI 26.91 kg/m? Physical Exam Constitutional: General: She is not in acute distress. Cardiovascular: Rate and Rhythm: Normal rate and regular rhythm. Heart sounds: No murmur heard. No gallop. Pulmonary: Effort: No respiratory distress. Breath sounds: No wheezing or rales. Musculoskeletal: Right lower leg: No edema. Left lower leg: No edema. Neurological: Mental Status: She is alert. Gait: Gait normal. Test results pertinent to today's visit were reviewed and discussed with the patient. Assessment and Plan 1. Spigelian hernia left - ICD9: 553.29, ICD10: K43.9 (primary diagnosis) Surgical consult declined. Observe only. 2. Allergic rhinitis, unspecified seasonality, unspecified trigger - ICD9: 477.9, ICD10: J30.9 - LORATADINE 10 MG TABLET 3. Asthma-COPD overlap syndrome - ICD9: 493.20, ICD10: J44.89 Stable. - BUDESONIDE-FORMOTEROL HFA 160 MCG-4.5 MCG/ACTUATION AEROSOL INHALER 4. Centrilobular emphysema (HCC) - ICD9: 492.8, ICD10: J43.2 Stable. - BUDESONIDE-FORMOTEROL HFA 160 MCG-4.5 MCG/ACTUATION AEROSOL INHALER 5. Osteoporotic compression fracture of spine with routine healing - ICD9: V54.27, ICD10: M80. (more content not included)... [facility] 10-12-2023 Note HNO ID: [id number] Author: SAAD RODRIGUEZ RT(R) Service: ? Author Type: Technologist Type: Progress Notes Filed: 10/12/2023 12:44 Note Text: Radiology Service Progress Note PATIENT NAME: Nano Aguilar DATE OF SERVICE: October 12, 2023 TIME: 12:31 PM PATIENT IDENTITY VERIFICATION COMPLETED USING TWO (2) IDENTIFIERS: Name and Date of confirmed by patient verbally. FALL SCREENING: Has the patient had 2 falls in the last year or 1 fall with injury or currently using an Ambulatory Assistive Device (Walker, Cane, Wheelchair, Crutches, etc.)? No PATIENT GENDER DATA: Female. status: : No status: NO. PATIENT RELEVANT IMPLANT DATA REVIEWED: Not Applicable RADIOLOGY DEPARTMENT: Bone Density PERIPHERAL IV DATA: Not applicable SIGNED BY: RT Charli(R) October 12, 2023 12:31 PM [facility] 09-06-2023 Miscellaneous Notes Patient has been identified by name and date of : No Patient phones for refill(s): Requested Prescriptions Pending Prescriptions Disp Refills budesonide-formoterol (SYMBICORT) 160-4.5 mcg/actuation inhaler 10.2 g 5 Sig: Inhale 2 Puffs as instructed two times a day. Date of last office visit in primary care: 07/28/2023 Date of next office visit in primary care: 10/28/2023 Last 2 Encounter Wt Readings: Date: Wt: 07/28/2023 69.3 kg (152 lb 12.8 oz) 01/13/2023 68.5 kg (151 lb) Previous labs/tests for medication: Not applicable Please advise. Thank you. Hui Arnold. Patient has been identified by name and date of : Yes Requested Prescriptions Pending Prescriptions Disp Refills budesonide-formoterol (SYMBICORT) 160-4.5 mcg/actuation inhaler 10.2 g 5 Sig: Inhale 2 Puffs as instructed two times a day. RX INSTRUCTIONS: Patient aware RX will be sent to pharmacy. No need to notify patient. Shannan Hunter documented in this encounter [facility] 08-13-2023 Note HNO ID: [id number] Author: Tiana Chen RT(R) Service: ? Author Type: Box Stamper Type: Progress Notes Filed: 08/13/2023 4:16 PM Note Text: Radiology Service Progress Note PATIENT NAME: Nano Aguilar DATE OF SERVICE: August 13, 2023 TIME: 4:16 PM PATIENT IDENTITY VERIFICATION COMPLETED USING TWO (2) IDENTIFIERS: Name and Date of confirmed by patient verbally. FALL SCREENING: Has the patient had 2 falls in the last year or 1 fall with injury or currently using an Ambulatory Assistive Device (Walker, Cane, Wheelchair, Crutches, etc.)? No PATIENT GENDER DATA: Female. status: : No status: NO. PATIENT RELEVANT IMPLANT DATA REVIEWED: Yes RADIOLOGY DEPARTMENT: CT; Exam(s) Completed: Abdomen/Pelvis PERIPHERAL IV DATA: Not applicable SIGNED BY: RT Shama(R) August 13, 2023 4:16 PM [facility] 08-13-2023 History of Presen t illness Narrative Radiology Service Progress Note PATIENT NAME: Nano Aguilar DATE OF SERVICE: August 13, 2023 TIME: 4:16 PM PATIENT IDENTITY VERIFICATION COMPLETED USING TWO (2) IDENTIFIERS: Name and Date of confirmed by patient verbally. FALL SCREENING: Has the patient had 2 falls in the last year or 1 fall with injury or currently using an Ambulatory Assistive Device (Walker, Cane, Wheelchair, Crutches, etc.)? No PATIENT GENDER DATA: Female. status: : No status: NO. PATIENT RELEVANT IMPLANT DATA REVIEWED: Yes RADIOLOGY DEPARTMENT: CT; Exam(s) Completed: Abdomen/Pelvis PERIPHERAL IV DATA: Not applicable SIGNED BY: RT Shama(R) August 13, 2023 4:16 PM documented in this encounter [facility] 08-02-2023 Miscellaneous Notes TC to patient who verbalized understanding of providers message below with no questions at this time. SEAMUS Handy ----- Message from Alberto Ruano MD sent at 08/02/2023 8:57 AM EDT ----- Labs within normal limits. CT scan as scheduled. documented in this encounter [facility] 07-28-2023 Note HNO ID: [id number] Author: Alberto Ruano MD Service: ? Author Type: Physician Type: Progress Notes Filed: 07/29/2023 1:07 AM Note Text: This note was created using [employer]. Subjective Nano Aguilar is a 83 year old female. She noted a mass of her left lower abdomen sometime after her last visit. She had occasional discomfort but no real pain and no other symptoms so she did not seek medical attention until now. Her other concern was recurrent vaginal discharge and itching. She was self managing with over the counter vaginal creams with temporary relief. Other conditions were stable. Her blood pressure was variable, but generally better than today's readings. She had a cardiology follow up scheduled. Her carotid disease was monitored by her woodyard operator and reported stable. Review of Systems Constitutional: Negative for appetite change, fatigue, fever and unexpected weight change. HENT: Negative. Respiratory: Negative for cough, shortness of breath and wheezing. Cardiovascular: Negative for chest pain, palpitations and leg swelling. Gastrointestinal: Negative for abdominal distention, blood in stool, constipation, diarrhea, nausea and vomiting. Genitourinary: Positive for vaginal discharge. Negative for vaginal bleeding and vaginal pain. Neurological: Negative for dizziness and headaches. Psychiatric/Behavioral: Negative for dysphoric mood. ACTIVE PROBLEM LIST Generalized Osteoarthritis Osteoporotic Compression Fracture of Spine With Routine Healing Allergic Rhinitis Esophageal Reflux Non-Ischemic Cardiomyopathy (Hcc) Other Hyperlipidemia Benign Neoplasm of Colon Essential Hypertension Postmenopausal Atrophic Vaginitis Arthritis of Knee, Degenerative Lumbago Insomnia Emphysema of Lung (Hcc) Lbbb (Left Bundle Branch Block) Atherosclerosis of [place] Coronary Artery of [place] Heart With Stable Angina Pectoris (Hcc) Bilateral Carotid Artery Disease (Hcc) Asthma-Copd Overlap Syndrome Current Outpatient Medications Medication Sig budesonide-formoterol (SYMBICORT) 160-4.5 mcg/actuation inhaler Inhale 2 Puffs as instructed twice daily. montelukast (SINGULAIR) 10 mg tablet Take 1 tablet by mouth once daily. loratadine (CLARITIN) 10 mg tablet TAKE 1 TABLET BY MOUTH EVERY DAY NEEDED FOR ALLERGIES Ibandronate 150 mg tablet Take 1 tablet by mouth once every month. Take as directed. ipratropium 20 mcg-albuterol 100 mcg (COMBIVENT RESPIMAT) 20-100 mcg/actuation inhaler Inhale 1 Puff as instructed four times daily as needed (wheezing, shortness of breath). pantoprazole DR (PROTONIX) 20 mg tablet Take 1 tablet by mouth daily before breakfast. Take on empty stomach, 1/2 hr before meal. isosorbide mononitrate ER (IMDUR) 30 mg 24 hr tablet Take 1 tablet by mouth once daily. losartan (COZAAR) 50 mg tablet Take 1 tablet by mouth once daily. nitroglycerin sublingual (NITROSTAT) 0.4 mg SL tablet Dissolve 1 tablet under the tongue. DISSOLVE ONE(1) TABLET UNDER THE TOUNGUE NEEDED FOR CHEST PAIN,EVERY 5 MIN X3 carvedilol (COREG) 12.5 mg tablet Take 1 tablet by mouth twice daily. atorvastatin (LIPITOR) 40 mg tablet Take 1 tablet by mouth once daily. HYDROcodone-Acetaminophen (NORCO) 7.5-325 mg per tablet Take 1 tablet by mouth three times daily. Per pain management. desoximetasone (TOPICORT) 0.25 % cream Apply 1 application to affected area once daily as needed (Apply sparingly to neck, face. Avoid eyes and mouth.). albuterol (PROVENTIL) 2.5 mg /3 mL (0.083 %) nebulizer solution Use 3 mL via nebulizer every 4 hours as needed for Wheezing/Shortness of Breath. DX: ICD9: 493.00, ICD10: J45.909 CALCIUM CARBONATE (CALTRATE 600 ORAL) Take 2 tablets by mouth once daily. MULTIVIT WITH CALCIUM,IRON,MIN (MULTIPLE VITAMIN, WOMENS ORAL) Take 1 capsule by mouth once daily. cholecalciferol, Vitamin D3, 400 unit Tab Take 1 tablet by mouth once daily. aspirin(ECOTRIN LOW STRENGTH 81 MG TAB) Take one(1) tablet daily. ascorbic acid(VITAMIN C 500 MG TAB) Take one(1) tablet daily. FISH ASY-OOVOX-0-COENZYME Q10 1,900 MG-640 MG-50 MG/2.5 G ORAL PACKET Take one(1) tablet daily. No current facility-administered medications for this visit. Objective BP 147/90 (BP Site: Left Arm, BP Position: Sitting, BP Cuff Size: Large Adult) Pulse 72 Resp 16 Ht 159 cm (5' 2.6 ) Wt 69.3 kg (152 lb 12.8 oz) SpO2 98% BMI 27.41 kg/m? Physical Exam Constitutional: General: She is not in acute distress. Eyes: General: No scleral icterus. Conjunctiva/sclera: Conjunctivae normal. Neck: Vascular: No carotid bruit. Cardiovascular: Rate and Rhythm: Normal rate and regular rhythm. Heart sounds: No murmur heard. No gallop. Pulmonary: Effort: No respiratory distress. Breath sounds: No wheezing or rales. Abdominal: General: Bowel sounds are normal. Palpations: Abdomen is soft. There is mass. There is no hepatomegaly or splenomegaly. Ten (more content not included)... [facility] 07-28-2023 Note HNO ID: [id number] Author: Alberto Ruano MD Service: ? Author Type: Physician Type: Progress Notes Filed: 07/29/2023 1:07 AM Note Text: Nano Aguilar is a 83 year old female here for a Medicare wellness visit. Medicare Health Risk Assessment General Health Good Exercise: Minutes/Day None Exercise: Days/Week Daily calisthenics Alcohol: Daily Use No Alcohol: Drinks/Day No Alcohol: 6 or more drinks No Feel off balance Sometimes. Concerns: Teeth/Dentures No Concerns: Sexual function No Troubled by feelings No Frequency: Eating healthy diet Daily. ADLs requiring help Yes. COSMETIC COUNSELOR every 2 weeks. Safety precautions in home/vehicle Yes. Smoke, vape, chews tobacco No Difficulty hearing Yes. Has hearing aids. Difficulty seeing No. Current Providers Specialists: I have reviewed specialist-related care of the patient in the medical record. [facility], cardiology. Dr. Dayron Diamond, Pain Management. Dr. Barbosa, ophthalmology. Dr.K. Scott, ENT. Medical/Family history review Reviewed and updated problem list, medical/surgical/family/social history, medications, and allergies. Opioid use review Opioid Medications (last 90 days) Some values may be hidden. Unless noted otherwise, only the newest values recorded on each date are displayed. Opioid Medications HYDROcodone-Acetaminophen (NORCO) 7.5-325 mg per tablet Dose: 1 tablet 3 TIMES DAILY Per pain management. Starting date: 11/19/2018 (active) Prescribed No opioid use on file in the last 90 days Does patient have risk factors for opioid abuse? No Pain overview Current pain concerns and treatment plan reviewed. Patient under the care of a specialist. Depression screening Depression Screening PHQ-2 Score 01/13/2023 1 Depression screening tool completed and reviewed. Based on score and interview, patient is not at risk for depression. Screening tool discussed with patient, and I recommended no further intervention at this time. Time spent in depression screening and assessment: < 5 minutes. Cognitive screening Mini Cog Score: 5 Functional Observation Was the patient's timed Up AND Go test unsteady or ? 12 seconds? No Advance Care Planning Patient did not wish or was not able to name a surrogate decision maker or provide an advance care plan Measurements BP 147/90 Pulse 72 Resp 16 Ht 5' 2.6 (1.59m) Wt 152 lb 12.8 oz (69.3kg) SpO2 98% BMI 27.42 kg/(m2). Additional screenings: Vision Screening Right eye - Without correction: With correction: 20/70 Left eye - Without correction: With correction: 20/50 Both eyes - Without correction: With correction: 20/50 Assessment/Plan Medicare annual wellness visit, subsequent (Z00.00) - Counseled on healthy diet and regular exercise - Fall avoidance information provided - Personalized prevention plan provided [facility] 07-28-2023 Instructions Alberto Ruano MD - 07/28/2023 3:38 PM EDT Have you ever planned for future healthcare decisions with a power of director hair, living will, or advance directives? Yes. Have you shared those records with your doctor? No and No. Please bring a copy to your next appointment or email to [email or web address] GET VACCINES FROM YOUR PHARMACY. RSV Vaccine(1 - 1-dose 60+ series) Never done Shingrix Vaccine(2 of 3) due on 04/10/2009 DTaP,Tdap,Td Vaccine(1 - Tdap) due on 04/20/2009 documented in this encounter [facility] 07-28-2023 History of Presen t illness Narrative This note was created using [employer]. Subjective Nano Aguilar is a 83 year old female. She noted a mass of her left lower abdomen sometime after her last visit. She had occasional discomfort but no real pain and no other symptoms so she did not seek medical attention until now. Her other concern was recurrent vaginal discharge and itching. She was self managing with over the counter vaginal creams with temporary relief. Other conditions were stable. Her blood pressure was variable, but generally better than today's readings. She had a cardiology follow up scheduled. Her carotid disease was monitored by her woodyard operator and reported stable. Review of Systems Constitutional: Negative for appetite change, fatigue, fever and unexpected weight change. HENT: Negative. Respiratory: Negative for cough, shortness of breath and wheezing. Cardiovascular: Negative for chest pain, palpitations and leg swelling. Gastrointestinal: Negative for abdominal distention, blood in stool, constipation, diarrhea, nausea and vomiting. Genitourinary: Positive for vaginal discharge. Negative for vaginal bleeding and vaginal pain. Neurological: Negative for dizziness and headaches. Psychiatric/Behavioral: Negative for dysphoric mood. ACTIVE PROBLEM LIST Generalized Osteoarthritis Osteoporotic Compression Fracture of Spine With Routine Healing Allergic Rhinitis Esophageal Reflux Non-Ischemic Cardiomyopathy (Hcc) Other Hyperlipidemia Benign Neoplasm of Colon Essential Hypertension Postmenopausal Atrophic Vaginitis Arthritis of Knee, Degenerative Lumbago Insomnia Emphysema of Lung ([facility]) Lbbb (Left Bundle Branch Block) Atherosclerosis of [place] Coronary Artery of [place] Heart With Stable Angina Pectoris ([facility]) Bilateral Carotid Artery Disease ([facility]) Asthma-Copd Overlap Syndrome Current Outpatient Medications Medication Sig budesonide-formoterol (SYMBICORT) 160-4.5 mcg/actuation inhaler Inhale 2 Puffs as instructed twice daily. montelukast (SINGULAIR) 10 mg tablet Take 1 tablet by mouth once daily. loratadine (CLARITIN) 10 mg tablet TAKE 1 TABLET BY MOUTH EVERY DAY NEEDED FOR ALLERGIES Ibandronate 150 mg tablet Take 1 tablet by mouth once every month. Take as directed. ipratropium 20 mcg-albuterol 100 mcg (COMBIVENT RESPIMAT) 20-100 mcg/actuation inhaler Inhale 1 Puff as instructed four times daily as needed (wheezing, shortness of breath). pantoprazole DR (PROTONIX) 20 mg tablet Take 1 tablet by mouth daily before breakfast. Take on empty stomach, 1/2 hr before meal. isosorbide mononitrate ER (IMDUR) 30 mg 24 hr tablet Take 1 tablet by mouth once daily. losartan (COZAAR) 50 mg tablet Take 1 tablet by mouth once daily. nitroglycerin sublingual (NITROSTAT) 0.4 mg SL tablet Dissolve 1 tablet under the tongue. DISSOLVE ONE(1) TABLET UNDER THE TOUNGUE NEEDED FOR CHEST PAIN,EVERY 5 MIN X3 carvedilol (COREG) 12.5 mg tablet Take 1 tablet by mouth twice daily. atorvastatin (LIPITOR) 40 mg tablet Take 1 tablet by mouth once daily. HYDROcodone-Acetaminophen (NORCO) 7.5-325 mg per tablet Take 1 tablet by mouth three times daily. Per pain management. desoximetasone (TOPICORT) 0.25 % cream Apply 1 application to affected area once daily as needed (Apply sparingly to neck, face. Avoid eyes and mouth.). albuterol (PROVENTIL) 2.5 mg /3 mL (0.083 %) nebulizer solution Use 3 mL via nebulizer every 4 hours as needed for Wheezing/Shortness of Breath. DX: ICD9: 493.00, ICD10: J45.909 CALCIUM CARBONATE (CALTRATE 600 ORAL) Take 2 tablets by mouth once daily. MULTIVIT WITH CALCIUM,IRON,MIN (MULTIPLE VITAMIN, WOMENS ORAL) Take 1 capsule by mouth once daily. cholecalciferol, Vitamin D3, 400 unit Tab Take 1 tablet by mouth once daily. aspirin(ECOTRIN LOW STRENGTH 81 MG TAB) Take one(1) tablet daily. ascorbic acid(VITAMIN C 500 MG TAB) Take one(1) tablet daily. FISH ZME-WEXLA-8-COENZYME Q10 1,900 MG-640 MG-50 MG/2.5 G ORAL PACKET Take one(1) tablet daily. No current facility-administered medications for this visit. Objective BP 147/90 (BP Site: Left Arm, BP Position: Sitting, BP Cuff Size: Large Adult) Pulse 72 Resp 16 Ht 159 cm (5' 2.6 ) Wt 69.3 kg (152 lb 12.8 oz) SpO2 98% BMI 27.41 kg/m Physical Exam Constitutional: General: She is not in acute distress. Eyes: General: No scleral icterus. Conjunctiva/sclera: Conjunctivae normal. Neck: Vascular: No carotid bruit. Cardiovascular: Rate and Rhythm: Normal rate and regular rhythm. Heart sounds: No murmur heard. No gallop. Pulmonary: Effort: No respiratory distress. Breath sounds: No wheezing or rales. Abdominal: General: Bowel sounds are normal. Palpations: Abdomen is soft. There is mass. There is no hepatomegaly or splenomegaly. Tenderness: There is no abdominal tenderness. Comments: 8 x 7 cm egg shaped, smooth, firm, non tender mass in the left lower quadrant above the groin. Lymphadenopathy: Cervical: No cervical adenopathy. Neurological: Mental Status: She is alert. Assessment and Plan 1. Medicare annual wellness visit, subsequent - ICD9: V70.0, ICD10: Z00.00 (primary diagnosis) See wellness note. 2. Need for influenza vaccination - ICD9: V04.81, ICD10: Z23 - INFLUENZA VACCINE, PRSV FREE, AGE 65+ YR, HIGH DOSE, QUADRIVALENT (FLUZONE HIGH-DOSE) 3. Need for COVID-19 vaccine - ICD9: V04.89, ICD10: Z23 - [employer] COVID-19 VACCINE (2022- [place]) AGE 12+ YR 4. Bilateral carotid artery stenosis - ICD9: 433.10, 433.30, ICD10: I65.23 Stable, monitored by her woodyard operator. 5. Asthma-COPD overlap syndrome - ICD9: 493.20, ICD10: J44.89 Stable. 6. Pulmonary emphysema, unspecified emphysema type (HCC) - ICD9: 492.8, ICD10: J43.9 Stable. 7. Essential hypertension - ICD9: 401.9, ICD10: I10 Fair. - Continue current medications - Encouraged sodium restriction, DASH or Mediterranean diet - Reviewed risks of hypertension and principles of treatment 8. Subacute vaginitis - ICD9: 616.10, ICD10: N76.1 Discussed medication dosage, usage, goals of therapy, and side effects, as well as medication interactions possible. - FLUCONAZOLE 150 MG TABLET 9. Abdominal mass, left lower quadrant - ICD9: 789.34, ICD10: R19.04 Etiology TBD. Hernia vs. Other. - CT ABD/PEL WO IVCON - ENTERIC CONTRAST (RADIOLOGY PROCEDURE) - CBC - COMP METABOLIC PANEL 10. Left lower quadrant abdominal pain - ICD9: 789.04, ICD10: R10.32 See above. - CT ABD/PEL WO IVCON - ENTERIC CONTRAST (RADIOLOGY PROCEDURE) - CBC - COMP METABOLIC PANEL 11. Other hyperlipidemia - ICD9: 272.4, ICD10: E78.49 Controlled. Alberto Ruano MD Nano Aguilar is a 83 year old female here for a Medicare wellness visit. Medicare Health Risk Assessment General Health Good Exercise: Minutes/Day None Exercise: Days/Week Daily calisthenics Alcohol: Daily Use No Alcohol: Drinks/Day No Alcohol: 6 or more drinks No Feel off balance Sometimes. Concerns: Teeth/Dentures No Concerns: Sexual function No Troubled by feelings No Frequency: Eating healthy diet Daily. ADLs requiring help Yes. COSMETIC COUNSELOR every 2 weeks. Safety precautions in home/vehicle Yes. Smoke, vape, chews tobacco No Difficulty hearing Yes. Has hearing aids. Difficulty seeing No. Current Providers Specialists: I have reviewed specialist-related care of the patient in the medical record. [facility], cardiology. Dr. Dayron Diamond, Pain Management. Dr. Barbosa, ophthalmology. Dr.K. Scott, ENT. Medical/Family history review Reviewed and updated problem list, medical/surgical/family/social history, medications, and allergies. Opioid use review Opioid Medications (last 90 days) Some values may be hidden. Unless noted otherwise, only the newest values recorded on each date are displayed. Opioid Medications HYDROcodone-Acetaminophen (NORCO) 7.5-325 mg per tablet Dose: 1 tablet 3 TIMES DAILY Per pain management. Starting date: 11/19/2018 (active) Prescribed No opioid use on file in the last 90 days Does patient have risk factors for opioid abuse? No Pain overview Current pain concerns and treatment plan reviewed. Patient under the care of a specialist. Depression screening Depression Screening PHQ-2 Score 01/13/2023 1 Depression screening tool completed and reviewed. Based on score and interview, patient is not at risk for depression. Screening tool discussed with patient, and I recommended no further intervention at this time. Time spent in depression screening and assessment: < 5 minutes. Cognitive screening Mini Cog Score: 5 Functional Observation Was the patient's timed Up & Go test unsteady or ? 12 seconds? No Advance Care Planning Patient did not wish or was not able to name a surrogate decision maker or provide an advance care plan Measurements BP 147/90 Pulse 72 Resp 16 Ht 5' 2.6 (1.59m) Wt 152 lb 12.8 oz (69.3kg) SpO2 98% BMI 27.42 kg/(m^2). Additional screenings: Vision Screening Right eye - Without correction: With correction: 20/70 Left eye - Without correction: With correction: 20/50 Both eyes - Without correction: With correction: 20/50 Assessment/Plan Medicare annual wellness visit, subsequent (Z00.00) - Counseled on healthy diet and regular exercise - Fall avoidance information provided - Personalized prevention plan provided documented in this encounter [facility] 06-29-2023 Miscellaneous Notes [facility] it appears they needs a rx for 90 capsules for 90 days. Please send new rx. No PA is needed, This call took over 20 minutes. Closed 06/28/2023 11:48 AM Close reason: Prior Authorization not required for patient/medication Note from payer: Drug is covered by current benefit plan. No further PA activity needed Electronic PA requested for review. Patient call said her ins is rejecting her Rx for Spiriva that she has been on for years / requesting an appeal to the ins from her pcp or a different Rx that they will pay for Please advise documented in this encounter [facility] 06-28-2023 Miscellaneous Notes Patient has been identified by name and date of : Yes Last office visit in this department: 01/13/2023 RX INSTRUCTIONS: Patient aware RX will be sent to pharmacy. No need to notify patient. Patient phones requesting refills as follows: Requested Prescriptions Pending Prescriptions Disp Refills budesonide-formoterol (SYMBICORT) 160-4.5 mcg/actuation inhaler 10.2 g 5 Sig: Inhale 2 Puffs as instructed twice daily. Please review and advise. Catarina Hunter documented in this encounter [facility] 04-12-2023 Note HNO ID: [id number] Author: Jannie Monahan LPN Service: ? Author Type: ? Type: Progress Notes Filed: 04/12/2023 4:20 PM Note Text: Results to be reviewed at next appt. Jannie Monahan LPN [facility] 03-31-2023 Miscellaneous Notes Call placed to patient and notified of below. Patient reports she will be in next week to have labs completed. Linda Lowery RN Fasting labs ordered 04/02/23 or next week. Patient calls to ask about lab orders. Patient reports she was supposed to come in for labs but they . Not able to see and orders to re pend. Please review and advise, Linda Lowery RN documented in this encounter [facility] 02-05-2023 Miscellaneous Notes Pt asking if provider could send these to her mail in pharmacy, as she isn't able to get out and picker tender her medication like she use to be able to. Patient has been identified by name and date of : Yes, Provider Dr Ruano Date 02/05/23 Time 1320. Patient phones for refill(s): Requested Prescriptions Pending Prescriptions Disp Refills montelukast (SINGULAIR) 10 mg tablet 90 tablet 3 Sig: Take 1 tablet by mouth once daily. Date of last office visit in primary care: 01/13/23 Future visit: 07/22/23 Last 2 Encounter Wt Readings: Date: Wt: 01/13/2023 68.5 kg (151 lb) 07/08/2022 67.1 kg (148 lb) Previous labs/tests for medication: Blood Pressure: BUN (mg/dL) Date Value 01/02/2022 12 10/30/2020 12 Sodium (mmol/L) Date Value 01/02/2022 135 10/30/2020 135 Last 1 Encounter BP Readings: Date: BP: 01/13/2023 124/82 Liver Function: ALT (U/L) Date Value 01/02/2022 18 03/17/2017 18 AST (U/L) Date Value 01/02/2022 22 Please advise. Thank you. Violeta Infante RN documented in this encounter [facility] 01-13-2023 Note HNO ID: [id number] Author: Alberto Ruano MD Service: ? Author Type: Physician Type: Progress Notes Filed: 01/13/2023 5:24 PM Note Text: This note was created using Kiyonriter. Subjective Nano Aguilar is a 83 year old female. She was managing okay after the loss of her spouse. She had support from family, friends, and her sabianism. He listed conditions were stable. She only needed refills of loratadine. Her medication list was updated. Her labs needed updating. She had intermittent chest pain, with negative stress test this past 2021. Review of Systems Constitutional: Negative for fever and unexpected weight change. HENT: Negative for congestion. Respiratory: Negative for cough and wheezing. Cardiovascular: Negative for palpitations and leg swelling. See HPI. Gastrointestinal: Negative for constipation. Musculoskeletal: Positive for arthralgias. Psychiatric/Behavioral: Negative. 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 Take as directed. tiotropium (SPIRIVA WITH HANDIHALER) 18 mcg inhalation capsule 1 capsule once daily. INHALE CONTENTS OF 1 CAPSULE INSTRUCTED ipratropium 20 mcg-albuterol 100 mcg (COMBIVENT RESPIMAT) 20-100 mcg/actuation inhaler Inhale 1 Puff as instructed four times daily as needed (wheezing, shortness of breath). pantoprazole (PROTONIX) 20 mg tablet Take 1 tablet by mouth daily before breakfast. Take on empty stomach, 1/2 hr before meal. montelukast (SINGULAIR) 10 mg tablet Take 1 tablet by mouth once daily. isosorbide mononitrate ER (IMDUR) 30 mg 24 hr tablet Take 1 tablet by mouth once daily. budesonide-formoterol (SYMBICORT) 160-4.5 mcg/actuation inhaler Inhale 2 Puffs as instructed twice daily. losartan (COZAAR) 50 mg tablet Take 1 tablet by mouth once daily. nitroglycerin sublingual (NITROSTAT) 0.4 mg SL tablet Dissolve 1 tablet under the tongue. DISSOLVE ONE(1) TABLET UNDER THE TOUNGUE NEEDED FOR CHEST PAIN,EVERY 5 MIN X3 carvedilol (COREG) 12.5 mg tablet Take 1 tablet by mouth twice daily. atorvastatin (LIPITOR) 40 mg tablet Take 1 tablet by mouth once daily. HYDROcodone-Acetaminophen (NORCO) 7.5-325 mg per tablet Take 1 tablet by mouth three times daily. Per pain management. desoximetasone (TOPICORT) 0.25 % cream Apply 1 application to affected area once daily as needed (Apply sparingly to neck, face. Avoid eyes and mouth.). albuterol (PROVENTIL) 2.5 mg /3 mL (0.083 %) nebulizer solution Use 3 mL via nebulizer every 4 hours as needed for Wheezing/Shortness of Breath. DX: ICD9: 493.00, ICD10: J45.909 CALCIUM CARBONATE (CALTRATE 600 ORAL) Take 2 tablets by mouth once daily. MULTIVIT WITH CALCIUM,IRON,MIN (MULTIPLE VITAMIN, WOMENS ORAL) Take 1 capsule by mouth once daily. cholecalciferol, Vitamin D3, 400 unit Tab Take 1 tablet by mouth once daily. aspirin(ECOTRIN LOW STRENGTH 81 MG TAB) Take one(1) tablet daily. ascorbic acid(VITAMIN C 500 MG TAB) Take one(1) tablet daily. FISH QUP-ZYLVM-5-COENZYME Q10 1,900 MG-640 MG-50 MG/2.5 G ORAL PACKET Take one(1) tablet daily. loratadine (CLARITIN) 10 mg tablet TAKE 1 TABLET BY MOUTH EVERY DAY NEEDED FOR ALLERGIES celecoxib (CELEBREX) 200 mg capsule Take 1 capsule by mouth once daily. Per pain management. No current facility-administered medications for this visit. Objective BP 124/82 Pulse 65 Resp 16 Wt 68.5 kg (151 lb) SpO2 98% BMI 26.75 kg/m? Physical Exam Constitutional: General: She is not in acute distress. Cardiovascular: Rate and Rhythm: Normal rate and regular rhythm. Heart sounds: No murmur heard. No gallop. Pulmonary: Effort: No respiratory distress. Breath sounds: No wheezing, rhonchi or rales. Musculoskeletal: Right lower leg: No edema. Left lower leg: No edema. Neurological: General: No focal deficit present. Mental Status: She is alert. Psychiatric: Attention and Perception: Attention normal. Mood and Affect: Mood is depressed. Speech: Speech normal. Thought Content: Thought content normal. Depression Screening 01/06/2018 01/02/2022 07/08/2022 01/13/2023 PHQ-2 Score 1 0 0 1 Depression screening tool completed and reviewed. Based on score and interview, patient is not at risk for depression. Screening tool discussed with patient, and I recommended no further inte (more content not included)... [facility] 01-13-2023 Note HNO ID: [id number] Author: Alberto Ruano MD Service: ? Author Type: Physician Type: Progress Notes Filed: 01/13/2023 5:24 PM Note Text: This note was created using NoteWriter. Subjective Nano Aguilar is a 83 year old female. 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 Pt unsure of strength Ibandronate 150 mg tablet Take 1 tablet by mouth once every month. Take as directed. tiotropium (SPIRIVA WITH HANDIHALER) 18 mcg inhalation capsule 1 capsule once daily. INHALE CONTENTS OF 1 CAPSULE INSTRUCTED ipratropium 20 mcg-albuterol 100 mcg (COMBIVENT RESPIMAT) 20-100 mcg/actuation inhaler Inhale 1 Puff as instructed four times daily as needed (wheezing, shortness of breath). pantoprazole DR (PROTONIX) 20 mg tablet Take 1 tablet by mouth daily before breakfast. Take on empty stomach, 1/2 hr before meal. montelukast (SINGULAIR) 10 mg tablet Take 1 tablet by mouth once daily. loratadine (CLARITIN) 10 mg tablet TAKE 1 TABLET BY MOUTH EVERY DAY NEEDED FOR ALLERGIES isosorbide mononitrate ER (IMDUR) 30 mg 24 hr tablet Take 1 tablet by mouth once daily. budesonide-formoterol (SYMBICORT) 160-4.5 mcg/actuation inhaler Inhale 2 Puffs as instructed twice daily. losartan (COZAAR) 50 mg tablet Take 1 tablet by mouth once daily. nitroglycerin sublingual (NITROSTAT) 0.4 mg SL tablet Dissolve 1 tablet under the tongue. DISSOLVE ONE(1) TABLET UNDER THE TOUNGUE NEEDED FOR CHEST PAIN,EVERY 5 MIN X3 carvedilol (COREG) 12.5 mg tablet Take 1 tablet by mouth twice daily. atorvastatin (LIPITOR) 40 mg tablet Take 1 tablet by mouth once daily. HYDROcodone-Acetaminophen (NORCO) 7.5-325 mg per tablet Take 1 tablet by mouth three times daily. Per pain management. desoximetasone (TOPICORT) 0.25 % cream Apply 1 application to affected area once daily as needed (Apply sparingly to neck, face. Avoid eyes and mouth.). albuterol (PROVENTIL) 2.5 mg /3 mL (0.083 %) nebulizer solution Use 3 mL via nebulizer every 4 hours as needed for Wheezing/Shortness of Breath. DX: ICD9: 493.00, ICD10: J45.909 CALCIUM CARBONATE (CALTRATE 600 ORAL) Take 2 tablets by mouth once daily. MULTIVIT WITH CALCIUM,IRON,MIN (MULTIPLE VITAMIN, WOMENS ORAL) Take 1 capsule by mouth once daily. cholecalciferol, Vitamin D3, 400 unit Tab Take 1 tablet by mouth once daily. aspirin(ECOTRIN LOW STRENGTH 81 MG TAB) Take one(1) tablet daily. ascorbic acid(VITAMIN C 500 MG TAB) Take one(1) tablet daily. FISH RFV-BNRAV-2-COENZYME Q10 1,900 MG-640 MG-50 MG/2.5 G ORAL PACKET Take one(1) tablet daily. pantoprazole DR (PROTONIX) 20 mg tablet Take 1 tablet by mouth daily before breakfast. Take on empty stomach, 1/2 hr before meal. (Patient not taking: Reported on 01/13/2023) meloxicam (MOBIC) 7.5 mg tablet Take 1 tablet by mouth once daily. Take with food. Per pain management. (Patient not taking: Reported on 01/13/2023) No current facility-administered medications for this visit. Objective BP 124/82 Pulse 65 Resp 16 Wt 68.5 kg (151 lb) SpO2 98% BMI 26.75 kg/m? Physical Exam Assessment and Plan [facility] 01-13-2023 Instructions Alberto Ruano MD - 01/13/2023 3:08 PM EDT FASTING BLOOD WORK ANY TIME SOON. documented in this encounter [facility] 01-13-2023 History of Presen t illness Narrative This note was created using YoungCurrent. Subjective Nano Aguilar is a 83 year old female. She was managing okay after the loss of her spouse. She had support from family, friends, and her sabianism. He listed conditions were stable. She only needed refills of loratadine. Her medication list was updated. Her labs needed updating. She had intermittent chest pain, with negative stress test this past 2021. Review of Systems Constitutional: Negative for fever and unexpected weight change. HENT: Negative for congestion. Respiratory: Negative for cough and wheezing. Cardiovascular: Negative for palpitations and leg swelling. See HPI. Gastrointestinal: Negative for constipation. Musculoskeletal: Positive for arthralgias. Psychiatric/Behavioral: Negative. 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 Take as directed. tiotropium (SPIRIVA WITH HANDIHALER) 18 mcg inhalation capsule 1 capsule once daily. INHALE CONTENTS OF 1 CAPSULE INSTRUCTED ipratropium 20 mcg-albuterol 100 mcg (COMBIVENT RESPIMAT) 20-100 mcg/actuation inhaler Inhale 1 Puff as instructed four times daily as needed (wheezing, shortness of breath). pantoprazole DR (PROTONIX) 20 mg tablet Take 1 tablet by mouth daily before breakfast. Take on empty stomach, 1/2 hr before meal. montelukast (SINGULAIR) 10 mg tablet Take 1 tablet by mouth once daily. isosorbide mononitrate ER (IMDUR) 30 mg 24 hr tablet Take 1 tablet by mouth once daily. budesonide-formoterol (SYMBICORT) 160-4.5 mcg/actuation inhaler Inhale 2 Puffs as instructed twice daily. losartan (COZAAR) 50 mg tablet Take 1 tablet by mouth once daily. nitroglycerin sublingual (NITROSTAT) 0.4 mg SL tablet Dissolve 1 tablet under the tongue. DISSOLVE ONE(1) TABLET UNDER THE TOUNGUE NEEDED FOR CHEST PAIN,EVERY 5 MIN X3 carvedilol (COREG) 12.5 mg tablet Take 1 tablet by mouth twice daily. atorvastatin (LIPITOR) 40 mg tablet Take 1 tablet by mouth once daily. HYDROcodone-Acetaminophen (NORCO) 7.5-325 mg per tablet Take 1 tablet by mouth three times daily. Per pain management. desoximetasone (TOPICORT) 0.25 % cream Apply 1 application to affected area once daily as needed (Apply sparingly to neck, face. Avoid eyes and mouth.). albuterol (PROVENTIL) 2.5 mg /3 mL (0.083 %) nebulizer solution Use 3 mL via nebulizer every 4 hours as needed for Wheezing/Shortness of Breath. DX: ICD9: 493.00, ICD10: J45.909 CALCIUM CARBONATE (CALTRATE 600 ORAL) Take 2 tablets by mouth once daily. MULTIVIT WITH CALCIUM,IRON,MIN (MULTIPLE VITAMIN, WOMENS ORAL) Take 1 capsule by mouth once daily. cholecalciferol, Vitamin D3, 400 unit Tab Take 1 tablet by mouth once daily. aspirin(ECOTRIN LOW STRENGTH 81 MG TAB) Take one(1) tablet daily. ascorbic acid(VITAMIN C 500 MG TAB) Take one(1) tablet daily. FISH UNZ-EDHRH-4-COENZYME Q10 1,900 MG-640 MG-50 MG/2.5 G ORAL PACKET Take one(1) tablet daily. loratadine (CLARITIN) 10 mg tablet TAKE 1 TABLET BY MOUTH EVERY DAY NEEDED FOR ALLERGIES celecoxib (CELEBREX) 200 mg capsule Take 1 capsule by mouth once daily. Per pain management. No current facility-administered medications for this visit. Objective BP 124/82 Pulse 65 Resp 16 Wt 68.5 kg (151 lb) SpO2 98% BMI 26.75 kg/m Physical Exam Constitutional: General: She is not in acute distress. Cardiovascular: Rate and Rhythm: Normal rate and regular rhythm. Heart sounds: No murmur heard. No gallop. Pulmonary: Effort: No respiratory distress. Breath sounds: No wheezing, rhonchi or rales. Musculoskeletal: Right lower leg: No edema. Left lower leg: No edema. Neurological: General: No focal deficit present. Mental Status: She is alert. Psychiatric: Attention and Perception: Attention normal. Mood and Affect: Mood is depressed. Speech: Speech normal. Thought Content: Thought content normal. Depression Screening 01/06/2018 01/02/2022 07/08/2022 01/13/2023 PHQ-2 Score 1 0 0 1 Depression screening tool completed and reviewed. Based on score and interview, patient is not at risk for depression. Screening tool discussed with patient, and I recommended no further intervention at this time. Assessment and Plan 1. Asthma-COPD overlap syndrome (HCC) - ICD9: 493.20, ICD10: J44.9 (primary diagnosis) Stable. She declined pulmonary clinic follow up at this time. 2. Allergic rhinitis, unspecified seasonality, unspecified trigger - ICD9: 477.9, ICD10: J30.9 Controlled. - LORATADINE 10 MG TABLET 3. Pulmonary emphysema, unspecified emphysema type (HCC) - ICD9: 492.8, ICD10: J43.9 See #1. 4. Non-ischemic cardiomyopathy (HCC) - ICD9: 425.4, ICD10: I42.8 Stable and monitored by [facility]. 5. 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) - ICD9: 414.01, 413.9, ICD10: I25.118 See #4. Alberto Ruano MD This note was created using Kiyonriter. Subjective Nano Aguilar is a 83 year old female. 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 Pt unsure of strength Ibandronate 150 mg tablet Take 1 tablet by mouth once every month. Take as directed. tiotropium (SPIRIVA WITH HANDIHALER) 18 mcg inhalation capsule 1 capsule once daily. INHALE CONTENTS OF 1 CAPSULE INSTRUCTED ipratropium 20 mcg-albuterol 100 mcg (COMBIVENT RESPIMAT) 20-100 mcg/actuation inhaler Inhale 1 Puff as instructed four times daily as needed (wheezing, shortness of breath). pantoprazole DR (PROTONIX) 20 mg tablet Take 1 tablet by mouth daily before breakfast. Take on empty stomach, 1/2 hr before meal. montelukast (SINGULAIR) 10 mg tablet Take 1 tablet by mouth once daily. loratadine (CLARITIN) 10 mg tablet TAKE 1 TABLET BY MOUTH EVERY DAY NEEDED FOR ALLERGIES isosorbide mononitrate ER (IMDUR) 30 mg 24 hr tablet Take 1 tablet by mouth once daily. budesonide-formoterol (SYMBICORT) 160-4.5 mcg/actuation inhaler Inhale 2 Puffs as instructed twice daily. losartan (COZAAR) 50 mg tablet Take 1 tablet by mouth once daily. nitroglycerin sublingual (NITROSTAT) 0.4 mg SL tablet Dissolve 1 tablet under the tongue. DISSOLVE ONE(1) TABLET UNDER THE TOUNGUE NEEDED FOR CHEST PAIN,EVERY 5 MIN X3 carvedilol (COREG) 12.5 mg tablet Take 1 tablet by mouth twice daily. atorvastatin (LIPITOR) 40 mg tablet Take 1 tablet by mouth once daily. HYDROcodone-Acetaminophen (NORCO) 7.5-325 mg per tablet Take 1 tablet by mouth three times daily. Per pain management. desoximetasone (TOPICORT) 0.25 % cream Apply 1 application to affected area once daily as needed (Apply sparingly to neck, face. Avoid eyes and mouth.). albuterol (PROVENTIL) 2.5 mg /3 mL (0.083 %) nebulizer solution Use 3 mL via nebulizer every 4 hours as needed for Wheezing/Shortness of Breath. DX: ICD9: 493.00, ICD10: J45.909 CALCIUM CARBONATE (CALTRATE 600 ORAL) Take 2 tablets by mouth once daily. MULTIVIT WITH CALCIUM,IRON,MIN (MULTIPLE VITAMIN, WOMENS ORAL) Take 1 capsule by mouth once daily. cholecalciferol, Vitamin D3, 400 unit Tab Take 1 tablet by mouth once daily. aspirin(ECOTRIN LOW STRENGTH 81 MG TAB) Take one(1) tablet daily. ascorbic acid(VITAMIN C 500 MG TAB) Take one(1) tablet daily. FISH EAZ-ZRPVT-0-COENZYME Q10 1,900 MG-640 MG-50 MG/2.5 G ORAL PACKET Take one(1) tablet daily. pantoprazole DR (PROTONIX) 20 mg tablet Take 1 tablet by mouth daily before breakfast. Take on empty stomach, 1/2 hr before meal. (Patient not taking: Reported on 01/13/2023) meloxicam (MOBIC) 7.5 mg tablet Take 1 tablet by mouth once daily. Take with food. Per pain management. (Patient not taking: Reported on 01/13/2023) No current facility-administered medications for this visit. Objective BP 124/82 Pulse 65 Resp 16 Wt 68.5 kg (151 lb) SpO2 98% BMI 26.75 kg/m Physical Exam Assessment and Plan documented in this encounter [facility] 12-29-2022 Miscellaneous Notes Pharmacy verified in [facility] Patient has been identified by name and date of : Yes Patient aware RX will be sent to pharmacy. No need to notify patient. Patient phones for refill(s): Requested Prescriptions Pending Prescriptions Disp Refills Ibandronate 150 mg tablet 3 tablet 3 Sig: Take 1 tablet by mouth once every month. Take as directed. tiotropium (SPIRIVA WITH HANDIHALER) 18 mcg inhalation capsule 30 capsule 11 Si capsule once daily. INHALE CONTENTS OF 1 CAPSULE INSTRUCTED ipratropium 20 mcg-albuterol 100 mcg (COMBIVENT RESPIMAT) 20-100 mcg/actuation inhaler Sig: Inhale 1 Puff as instructed four times daily as needed (wheezing, shortness of breath). Date of last office visit : 07/08/2022 Date of next office visit : 01/13/2023 Last 2 Encounter Wt Readings: Date: Wt: 07/08/2022 67.1 kg (148 lb) 03/06/2022 68.9 kg (152 lb) Please advise. Stephanie Gore Pss documented in this encounter [facility] 12-23-2022 Miscellaneous Notes Patient is having a hard time getting medication from [facility], she has tried several times. Asking for 90 day supply to go to [facility], 14 day supply to [facility]. Patient has been identified by name and date of : Yes, Patient phones for refill(s): Requested Prescriptions Pending Prescriptions Disp Refills pantoprazole DR (PROTONIX) 20 mg tablet 90 tablet 3 Sig: Take 1 tablet by mouth daily before breakfast. Take on empty stomach, 1/2 hr before meal. pantoprazole DR (PROTONIX) 20 mg tablet 14 tablet 0 Sig: Take 1 tablet by mouth daily before breakfast. Take on empty stomach, 1/2 hr before meal. Date of last office visit in primary care: 07/08/2022 6 month follow-up: 01/13/2023 Last 2 Encounter Wt Readings: Date: Wt: 07/08/2022 67.1 kg (148 lb) 03/06/2022 68.9 kg (152 lb) Previous labs/tests for medication: Not applicable Please advise. Thank you. Jannie Monahan LPN Patient has been identified by name and date of : Yes Requested Prescriptions Pending Prescriptions Disp Refills pantoprazole DR (PROTONIX) 20 mg tablet 90 tablet 3 Sig: Take 1 tablet by mouth daily before breakfast. Take on empty stomach, 1/2 hr before meal. RX INSTRUCTIONS: Patient aware RX will be sent to pharmacy. No need to notify patient. Shannan Samuel Pss documented in this encounter [facility] 10-13-2022 Miscellaneous Notes Mailed as requested. Rivera Jeffers Ma Nano Aguilar is calling Alberto Ruano MD office today requesting handicap placard renewal. Please mail to home address. Address has been verified documented in this encounter [facility] 10-09-2022 Miscellaneous Notes Patient calling on status. She states pharmacy has not received request. Patient has been identified by name and date of : Yes Patient phones for refill(s): Requested Prescriptions Pending Prescriptions Disp Refills montelukast (SINGULAIR) 10 mg tablet 90 tablet 3 Sig: Take 1 tablet by mouth once daily. Date of last office visit in primary care: 07/08/2022 6 month follow-up: 01/13/2023 Last 2 Encounter Wt Readings: Date: Wt: 07/08/2022 67.1 kg (148 lb) 03/06/2022 68.9 kg (152 lb) Previous labs/tests for medication: Not applicable Please advise. Thank you. Jannie Monahan LPN Patient has been identified by name and date of : Yes Requested Prescriptions Pending Prescriptions Disp Refills montelukast (SINGULAIR) 10 mg tablet 90 tablet 3 Sig: Take 1 tablet by mouth once daily. RX INSTRUCTIONS: Patient aware RX will be sent to pharmacy. No need to notify patient. Tata Hunter documented in this encounter [facility] 09-16-2022 Miscellaneous Notes Patient notified. Jannie Monahan LPN ----- Message from Alberto Ruano MD sent at 09/15/2022 4:26 PM EST ----- Normal CBC. documented in this encounter [facility] 09-11-2022 Miscellaneous Notes Patient notified, verbalized understanding. Patient states that she will come in next Wednesday for blood work but does not want to schedule an office visit at this time. Stop Pepto Bismol. Monitor if black stool continues. Appointment with Brooke next week with complete blood count. If symptoms persist, worsen in any way, go to ER. Patient has had black stool x 2 days. This is after patient did not have bowel movement x 3 days on Wednesday. [facility]. Patient had a bowel movement that was black. Patient was having abdominal cramping so she took Pepto-Bismol. Patient then had a black bowel movement on Wednesday with blood on Toilet Paper. Patient has not had a bowel movement since. Patient does have intermittent abdominal cramping. Per Triage protocol patient was recommended to go to ER. Patient declines this because she wants to know what Dr. Ruano says Reason for Disposition Black or tarry bowel movements Black or tarry bowel movements (Exception: chronic-unchanged black-bah bowel movements AND is taking iron pills or Pepto-bismol) Answer Assessment - Initial Assessment Questions 1. COLOR: Stool was black; all of it was black 2. ONSET: Wednesday; Patient normally has a bowel movement every morning, however patient on Wednesday had not had a bowel movement for 3 days. Patient took 3 [facility] [employer] Laxatives. Patient had a BM Wednesday and it was dark and had seedy stuff in it. On Wednesday had bowel movement and same thing happened. Noticed blood on toilet paper. Patient has not had a bowel movement since. Patient states that she has abdominal cramps. 3. CAUSE: Denies 4. OTHER SYMPTOMS: States stool was not hard and not diarrhea. Did have abdominal pain. Protocols used: Stools - Unusual [id number]-KT, Rectal Jiupazhm-SOLTR-AK documented in this encounter [facility] 07-08-2022 Instructions Alberto Ruano MD - 07/08/2022 3:29 PM EDT IF YOU FALL OR PASS OUT AGAIN, CONTACT THE [facility]ART [facility] FOR FURTHER WORK UP. documented in this encounter [facility] 07-08-2022 History of Presen t illness Narrative This note was created using [employer]. Subjective Nano Aguilar is a 82 year old female. She had 2 falls for no apparent reason, associated with lightheadedness. She may have passed out briefly both times. [facility] to [facility] and had a negative stress test yesterday. She denied syncope to them, but there was discussion about heart monitor. Her other conditions were stable. She was now on meloxicam from pain management. Review of Systems Constitutional: Negative. Respiratory: Negative. Cardiovascular: Negative. Gastrointestinal: Negative. Musculoskeletal: Positive for arthralgias. Neurological: Positive for syncope and light-headedness. Negative for headaches. ACTIVE PROBLEM LIST Generalized Osteoarthritis Osteoporotic Compression Fracture of Spine With Routine Healing Allergic Rhinitis Esophageal Reflux Non-Ischemic Cardiomyopathy (Hcc) Other Hyperlipidemia Benign Neoplasm of Colon Essential Hypertension Postmenopausal Atrophic Vaginitis Arthritis of Knee, Degenerative Lumbago Insomnia Emphysema of Lung ([facility]) Lbbb (Left Bundle Branch Block) Atherosclerosis of [place] Coronary Artery of [place] Heart With Stable Angina Pectoris ([facility]) Bilateral Carotid Artery Disease ([facility]) Asthma-Copd Overlap Syndrome ([facility]) Current Outpatient Medications Medication Sig pantoprazole DR (PROTONIX) 20 mg tablet Take 1 tablet by mouth daily before breakfast. Take on empty stomach, 1/2 hr before meal. ipratropium 20 mcg-albuterol 100 mcg (COMBIVENT RESPIMAT) 20-100 mcg/actuation inhaler Inhale 1 Puff as instructed four times daily as needed (wheezing, shortness of breath). tiotropium (SPIRIVA WITH HANDIHALER) 18 mcg inhalation capsule 1 capsule once daily. INHALE CONTENTS OF 1 CAPSULE INSTRUCTED loratadine (CLARITIN) 10 mg tablet TAKE 1 TABLET BY MOUTH EVERY DAY NEEDED FOR ALLERGIES isosorbide mononitrate ER (IMDUR) 30 mg 24 hr tablet Take 1 tablet by mouth once daily. Ibandronate 150 mg tablet Take 1 tablet by mouth once every month. Take as directed. montelukast (SINGULAIR) 10 mg tablet Take 1 tablet by mouth once daily. budesonide-formoterol (SYMBICORT) 160-4.5 mcg/actuation inhaler Inhale 2 Puffs as instructed twice daily. losartan (COZAAR) 50 mg tablet Take 1 tablet by mouth once daily. nitroglycerin sublingual (NITROSTAT) 0.4 mg SL tablet Dissolve 1 tablet under the tongue. DISSOLVE ONE(1) TABLET UNDER THE TOUNGUE NEEDED FOR CHEST PAIN,EVERY 5 MIN X3 carvedilol (COREG) 12.5 mg tablet Take 1 tablet by mouth twice daily. atorvastatin (LIPITOR) 40 mg tablet Take 1 tablet by mouth once daily. HYDROcodone-Acetaminophen (NORCO) 7.5-325 mg per tablet Take 1 tablet by mouth three times daily. Per pain management. desoximetasone (TOPICORT) 0.25 % cream Apply 1 application to affected area once daily as needed (Apply sparingly to neck, face. Avoid eyes and mouth.). albuterol (PROVENTIL) 2.5 mg /3 mL (0.083 %) nebulizer solution Use 3 mL via nebulizer every 4 hours as needed for Wheezing/Shortness of Breath. DX: ICD9: 493.00, ICD10: J45.909 CALCIUM CARBONATE (CALTRATE 600 ORAL) Take 2 tablets by mouth once daily. MULTIVIT WITH CALCIUM,IRON,MIN (MULTIPLE VITAMIN, WOMENS ORAL) Take 1 capsule by mouth once daily. cholecalciferol, Vitamin D3, 400 unit Tab Take 1 tablet by mouth once daily. aspirin(ECOTRIN LOW STRENGTH 81 MG TAB) Take one(1) tablet daily. ascorbic acid(VITAMIN C 500 MG TAB) Take one(1) tablet daily. FISH GTI-BHTLG-9-COENZYME Q10 1,900 MG-640 MG-50 MG/2.5 G ORAL PACKET Take one(1) tablet daily. meloxicam (MOBIC) 7.5 mg tablet Take 1 tablet by mouth once daily. Take with food. Per pain management. No current facility-administered medications for this visit. Objective BP 136/80 (BP Site: Left Arm, BP Position: Sitting, BP Cuff Size: Large Adult) Pulse 60 Temp 36.3 C (97.3 F) (Temporal) Resp 12 Wt 67.1 kg (148 lb) BMI 26.22 kg/m Physical Exam Constitutional: General: She is not in acute distress. Cardiovascular: Rate and Rhythm: Normal rate and regular rhythm. Heart sounds: No murmur heard. No gallop. Pulmonary: Breath sounds: Normal breath sounds. Abdominal: Palpations: Abdomen is soft. Musculoskeletal: Right lower leg: No edema. Left lower leg: No edema. Neurological: General: No focal deficit present. Mental Status: She is alert. Gait: Gait normal. Assessment and Plan 1. Near syncope - ICD9: 780.2, ICD10: R55 (primary diagnosis) See printed instructions or information. 2. Need for influenza vaccination - ICD9: V04.81, ICD10: Z23 - INFLUENZA SEASONAL QUADRIVALENT HIGH DOSE AGE 65+ - Yurbuds COVID-19 BIVALENT BOOSTER VACCINE, AGE 12+ YR 3. Need for COVID-19 vaccine - ICD9: V04.89, ICD10: Z23 Given. 4. Non-ischemic cardiomyopathy (HCC) - ICD9: 425.4, ICD10: I42.8 Stable. - CBC 5. Bilateral carotid artery stenosis - ICD9: 433.10, 433.30, ICD10: I65.23 Stable. 6. Essential hypertension - ICD9: 401.9, ICD10: I10 White coat syndrome. - Continue current medication(s) - Reviewed risks of HTN and principles of treatment - COMP METABOLIC PANEL - LIPID PANEL BASIC Alberto Ruano MD documented in this encounter [facility] 06-10-2022 Miscellaneous Notes Patient has been identified by name and date of : Yes Patient phones for refill(s): Requested Prescriptions Pending Prescriptions Disp Refills pantoprazole DR (PROTONIX) 20 mg tablet 90 tablet 3 Sig: Take 1 tablet by mouth daily before breakfast. Take on empty stomach, 1/2 hr before meal. Date of last office visit with pcp: 01-02-22. Next appt: 07-08-22 Last 2 Encounter Wt Readings: Date: Wt: 03/06/2022 68.9 kg (152 lb) 03/06/2022 68.9 kg (152 lb) Previous labs/tests for medication: Blood Pressure: BUN (mg/dL) Date Value 01/02/2022 12 10/30/2020 12 Sodium (mmol/L) Date Value 01/02/2022 135 10/30/2020 135 Last 1 Encounter BP Readings: Date: BP: 03/06/2022 126/82 Liver Function: ALT (U/L) Date Value 01/02/2022 18 03/17/2017 18 AST (U/L) Date Value 01/02/2022 22 Please advise. Thank you. Ellen Cm RN documented in this encounter [facility] 04-10-2022 History of Presen t illness Narrative Radiology Service Progress Note PATIENT NAME: Nano Aguilar DATE OF SERVICE: April 10, 2022 TIME: 12:48 PM PATIENT IDENTITY VERIFICATION COMPLETED USING TWO (2) IDENTIFIERS: Name and Date of confirmed by patient verbally. FALL SCREENING: Has the patient had 2 falls in the last year or 1 fall with injury or currently using an Ambulatory Assistive Device (Walker, Cane, Wheelchair, Crutches, etc.)? No PATIENT GENDER DATA: Female. status: : No status: NO. PATIENT RELEVANT IMPLANT DATA REVIEWED: Not Applicable RADIOLOGY DEPARTMENT: General X-ray: Exam(s) Completed: Lower Extremity X-Ray(s): Knee, AP / LAT Right and Wt. Bearing PERIPHERAL IV DATA: Not applicable SIGNED BY: RT Jadyn(R) April 10, 2022 12:48 PM documented in this encounter [facility] 03-06-2022 History of Presen t illness Narrative PULM FUNCTION SMARTBLOCK: Provider: Stephanie Cruz PA-C Assisting Tech: LAZARA Catalan Spirometry: 1 System: [id number] documented in this encounter [facility] 01-07-2022 Miscellaneous Notes Patient notified of below results, verbalized understanding. Jannie Monahan LPN ----- Message from Brooke Rothman APRN.FIRMWARE ENGINEER sent at 01/07/2022 11:28 AM EDT ----- Please let the patient know her labs were normal Brooke Rothman APRN.FIRMWARE ENGINEER documented in this encounter [facility] 01-02-2022 History of Presen t illness Narrative This note was created using NoteWriter. Subjective Nano Aguilar is a 81 year old female. She had no new concerns. She had angina regularly, so Imdur was added. She took NTG about twice a week. Her COPD was stable. She was mainly limited by chronic back and knee pains. Dr. Diamond had suggested doing some form of neurolysis for her knees. Back injections were no longer done for lack of efficacy. 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 Review of Systems Constitutional: Negative. HENT: Negative. Respiratory: Positive for cough and shortness of breath. Cardiovascular: Positive for chest pain. Negative for palpitations and leg swelling. No change. Gastrointestinal: Negative. Genitourinary: Negative. Musculoskeletal: Positive for arthralgias and back pain. Negative for gait problem. No change. Skin: Negative. Neurological: Negative. Psychiatric/Behavioral: Negative. 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 Take as directed. predniSONE (DELTASONE) 20 mg tablet Take 2 tablets by mouth once daily. montelukast (SINGULAIR) 10 mg tablet Take 1 tablet by mouth once daily. budesonide-formoterol (SYMBICORT) 160-4.5 mcg/actuation inhaler Inhale 2 Puffs as instructed twice daily. celecoxib (CELEBREX) 100 mg capsule Take 1 capsule by mouth twice daily as needed for pain. losartan (COZAAR) 50 mg tablet Take 1 tablet by mouth once daily. nitroglycerin sublingual (NITROSTAT) 0.4 mg SL tablet Dissolve 1 tablet under the tongue. DISSOLVE ONE(1) TABLET UNDER THE TOUNGUE NEEDED FOR CHEST PAIN,EVERY [address] (PROTONIX) 20 mg tablet Take 1 tablet by mouth daily before breakfast. Take on empty stomach, 1/2 hr before meal. zolpidem (AMBIEN) 5 mg tablet Take 1 tablet by mouth at bedtime as needed for sedation for up to 90 days. carvedilol (COREG) 12.5 mg tablet Take 1 tablet by mouth twice daily. ipratropium 20 mcg-albuterol 100 mcg (COMBIVENT RESPIMAT) 20-100 mcg/actuation inhaler Inhale 1 Puff as instructed four times daily as needed (wheezing, shortness of breath). benzonatate (TESSALON PERLES) 100 mg capsule Take 1 capsule by mouth three times daily as needed for Cough. FOR COUGHING. tiotropium (SPIRIVA WITH HANDIHALER) 18 mcg inhalation capsule 1 capsule once daily. INHALE CONTENTS OF 1 CAPSULE INSTRUCTED atorvastatin (LIPITOR) 40 mg tablet Take 1 tablet by mouth once daily. HYDROcodone-Acetaminophen (NORCO) 7.5-325 mg per tablet Take 1 tablet by mouth three times daily. Per pain management. desoximetasone (TOPICORT) 0.25 % cream Apply 1 application to affected area once daily as needed (Apply sparingly to neck, face. Avoid eyes and mouth.). albuterol (PROVENTIL) 2.5 mg /3 mL (0.083 %) nebulizer solution Use 3 mL via nebulizer every 4 hours as needed for Wheezing/Shortness of Breath. DX: ICD9: 493.00, ICD10: J45.909 CALCIUM CARBONATE (CALTRATE 600 ORAL) Take 2 tablets by mouth once daily. MULTIVIT WITH CALCIUM,IRON,MIN (MULTIPLE VITAMIN, WOMENS ORAL) Take 1 capsule by mouth once daily. cholecalciferol, Vitamin D3, 400 unit Tab Take 1 tablet by mouth once daily. aspirin(ECOTRIN LOW STRENGTH 81 MG TAB) Take one(1) tablet daily. ascorbic acid(VITAMIN C 500 MG TAB) Take one(1) tablet daily. FISH NJQ-WBBOB-2-COENZYME Q10 1,900 MG-640 MG-50 MG/2.5 G ORAL PACKET Take one(1) tablet daily. isosorbide mononitrate ER (IMDUR) 30 mg 24 hr tablet Take 1 tablet by mouth once daily. No current facility-administered medications for this visit. Objective BP 132/78 (BP Site: Left Arm, BP Position: Sitting, BP Cuff Size: Regular Adult) Pulse 78 Temp 36.1 C (97 F) (Temporal) Resp 16 Ht 160 cm (5' 3 ) Wt 69.4 kg (153 lb) BMI 27.10 kg/m Physical Exam Constitutional: General: She is not in acute distress. HENT: Head: Normocephalic. Eyes: General: No scleral icterus. Conjunctiva/sclera: Conjunctivae normal. Neck: Vascular: No carotid bruit. Cardiovascular: Rate and Rhythm: Normal rate and regular rhythm. Heart sounds: No murmur heard. No gallop. Pulmonary: Effort: No respiratory distress. Breath sounds: No wheezing or rales. Abdominal: General: There is no distension. Palpations: Abdomen is soft. Tenderness: There is no abdominal tenderness. Musculoskeletal: General: No tenderness. Lumbar back: Deformity present. Right lower leg: No edema. Left lower leg: No edema. Comments: Back brace. Lymphadenopathy: Cervical: No cervical adenopathy. Neurological: Mental Status: She is alert. Assessment and Plan 1. Medicare annual wellness visit, subsequent - ICD9: V70.0, ICD10: Z00.00 (primary diagnosis) See other note. 2. Allergic rhinitis, unspecified seasonality, unspecified trigger - ICD9: 477.9, ICD10: J30.9 Controlled. - LORATADINE 10 MG TABLET 3. Essential hypertension - ICD9: 401.9, ICD10: I10 - fair control - CBC 4. Other hyperlipidemia - ICD9: 272.4, ICD10: E78.49 TBD. Labs today. - COMP METABOLIC PANEL - LIPID PANEL BASIC 5. Asthma-COPD overlap syndrome (HCC) - ICD9: 493.20, ICD10: J44.9 Stable. 6. Pulmonary emphysema, unspecified emphysema type (HCC) - ICD9: 492.8, ICD10: J43.9 Stable. 7. Bilateral carotid artery stenosis - ICD9: 433.10, 433.30, ICD10: I65.23 Asymptomatic. 8. 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 Alberto Ruano MD Medicare Yearly Visit Medical B eligibilty date 2002 Date of last exam 10/30/2020 PAST MEDICAL HISTORY Diagnosis Date Allergic rhinitis, cause unspecified 06/09/2005 Arthritis bilat knees, and neck Asthma Atherosclerosis of [place] coronary artery of [place] heart without angina pectoris 07/03/2016 Mild to moderate CAD Benign neoplasm of colon Adenomatous. Bilateral carotid artery stenosis 07/03/2016 Bronchiectasis without acute exacerbation (HCC) 08/18/2006 Degeneration of intervertebral disc Disorder of bone and cartilage, unspecified 06/09/2005 Diverticulosis of colon (without mention of hemorrhage) 08/04/2005 Colon Polyp Esophageal reflux 06/09/2005 Extrinsic asthma, unspecified 06/09/2005 Generalized osteoarthrosis, unspecified site 06/09/2005 Hypertension Lumbago 05/17/2013 Dr. Remedios Cerda, Pain management Occipital neuralgia 05/17/2013 Dr. Dotty Levi, neurologist. Osteoporotic compression fracture of spine with routine healing 07/13/2017 Osteopenia Other and unspecified hyperlipidemia 08/04/2005 Other primary cardiomyopathies 08/04/2005 EF 40% Personal history of renal artery stenosis 08/23/2009 Uterine prolapse without mention of vaginal wall prolapse 12/21/2011 PAST SURGICAL HISTORY Procedure Laterality Date BIOPSY BREAST remote ? left or right benign CATHETER ART SYS-1ST ORD, ABDOM, PELVIC, OR LOWER 12-11-08 RENAL ARTERY, Left renal stent. COLONOSCOP W/ OR W/O [facility] 10/20/2004 Colonoscopy COLONOSCOP W/ OR W/O [facility] 07/16/2008 Colonoscopy COLONOSCOP W/ OR W/O [facility] 05/02/2015 Colonoscopy IR ABDOMINAL AORTOGRAM 12-11-08 RENAL ARTERY LEFT HEART CATH,PERCUTANEOUS 06/12/2016 Cardiac cath, L heart LUNG SURGERY HX PAST SURGICAL HISTORY OF 1998 HYSTEROSCOPY CURRETTAGE OF THE UTERUS PAST SURGICAL HISTORY OF 09/2014 lumbar pain injections. PULMONARY FUNCTION TEST 10/26/00 REMOVAL OF LUNG,LOBECTOMY 1992 LLL R/T PRECANCEROUS REMOVE TONSILS/ADENOIDS,<12 Y/O remotely ALLERGIES: Altace [Ramipril], Bactrim [Sulfamethoxazole-Trimethoprim], Bandaids [Other], Latex, and Relafen [Nabumetone] Medications reviewed: Yes FAMILY HISTORY Problem Relation Age of Onset Cancer Mother LUNG Heart Father NE,CAD Stroke Father other (BLACK LUNG) Father Cancer Brother LUNG other (ASTROCYTOMA) Brother Brain Ca SOCIAL HISTORY: Social History Tobacco Use Smoking status: Former Smoker Packs/day: 1.00 Years: 20.00 Pack years: 20.00 Types: Cigarettes Quit date: 10/04/1984 Years since quittin.2 Smokeless tobacco: Never Used Substance Use Topics Alcohol use: Yes Alcohol/week: 5.0 standard drinks Types: 2 Glasses of Wine (5oz) per week Comment: Occasionally wine Drug use: No Nano likes to exercise by light weights and calisthenics 30 minutes 2-3 times per week. She watches her diet for sodium, low fat and low cholesterol most of the time. List of current specialists seen: Dr. Foster, cardiology. Dr. Dayron Diamond, Pain Management. Dr. Barbosa, ophthalmology. Dr. Valentina Camargo, pulmonary. End of Live Planning discussed including patients advanced directive wishes: Yes I am willing to follow Nano's advanced directives. Copy needed. PHQ-2 / Depression screen She in the past two weeks denies having felt down, depressed, hopeless or with little interest or pleasure in doing things. Functional Ability/Safety Screen 1. Was the patient's timed Up and Go test unsteady or longer than 30 seconds? No 2. Does the patient need help with the phone, transportation, shopping,preparing meals, housework, laundry, medications or managing money? No 3. Does your home have rugs in the hallway, lack of grab bars in the bathroom, lack of handrails on the stairs or have poor lighting? No Hearing Evaluation: wears hearing aids PHYSICAL EXAM BP 132/78 (BP Site: Left Arm, BP Position: Sitting, BP Cuff Size: Regular Adult) Pulse 78 Temp 36.1 C (97 F) (Temporal) Resp 16 Ht 160 cm (5' 3 ) Wt 69.4 kg (153 lb) BMI 27.10 kg/m Alert and oriented X 3: YES Body mass index is 27.1 kg/m . Visual acuity: OD: 20/40 OS: 20/ 40 OU: 20/40 ASSESSMENT/PLAN: 81 year old female The following prevention plan was discussed during the office visit and provided to the patient: - Fall avoidance - Vaccines recommended COVID-19, Shingrix at pharmacy and Tdap at pharmacy - Counseling for Exercise - ADVANCE CARE PLAN DISCUSSION Alberto Ruano MD documented in this encounter [facility] documented as of this encounter (statuses as of 01/02/2022) [facility] History of Past illness Narrative* Problem Noted Date Resolved Date Special screening for malignant neoplasms, colon 05/02/2015 05/02/2015 Thoracic or lumbosacral neuritis or radiculitis, unspecified 03/07/2015 01/05/2017 Occipital neuralgia 05/17/2013 01/05/2017 Overview: Dr. Dotty Levi, neurologist. Ganglion cyst 07/26/2012 05/17/2013 Uterine prolapse without mention of vaginal wall prolapse 12/21/2011 03/06/2015 Female stress incontinence 10/02/200903/06 Personal history of renal artery stenosis 200803/06/2015 Osteoarthritis, knee 06/12/2009 01/05/2012 Screening for malignant neoplasm of the cervix 1 10/28/2007 01/05/2012 Personal history of colonic polyps 07/16/2008 06/20/2010 Bronchiectasis without acute exacerbation 200501/06/2018 Extrinsic asthma 06/09/2005 08/01/2021 Degeneration of intervertebral disc 03/06/2015 documented as of this encounter (statuses as of 01/07/2022) [facility] History of Past illness Narrative* Problem Noted Date Resolved Date Special screening for malignant neoplasms, colon 05/02/2015 05/02/2015 Thoracic or lumbosacral neuritis or radiculitis, unspecified 03/07/2015 01/05/2017 Occipital neuralgia 05/17/2013 01/05/2017 Overview: Dr. Dotty Levi, neurologist. Ganglion cyst 07/26/2012 05/17/2013 Uterine prolapse without mention of vaginal wall prolapse 12/21/2011 03/06/2015 Female stress incontinence 10/02/200903/06 Personal history of renal artery stenosis 200803/06/2015 Osteoarthritis, knee 06/12/2009 01/05/2012 Screening for malignant neoplasm of the cervix 1 10/28/2007 01/05/2012 Personal history of colonic polyps 07/16/2008 06/20/2010 Bronchiectasis without acute exacerbation 200501/06/2018 Extrinsic asthma 06/09/2005 08/01/2021 Degeneration of intervertebral disc 03/06/2015 documented as of this encounter (statuses as of 03/06/2022) [facility] History of Past illness Narrative* Problem Noted Date Resolved Date Special screening for malignant neoplasms, colon 05/02/2015 05/02/2015 Thoracic or lumbosacral neuritis or radiculitis, unspecified 03/07/2015 01/05/2017 Occipital neuralgia 05/17/2013 01/05/2017 Overview: Dr. Dotty Levi, neurologist. Ganglion cyst 07/26/2012 05/17/2013 Uterine prolapse without mention of vaginal wall prolapse 12/21/2011 03/06/2015 Female stress incontinence 10/02/200903/06 Personal history of renal artery stenosis 200803/06/2015 Osteoarthritis, knee 06/12/2009 01/05/2012 Screening for malignant neoplasm of the cervix 1 10/28/2007 01/05/2012 Personal history of colonic polyps 07/16/2008 06/20/2010 Bronchiectasis without acute exacerbation 200501/06/2018 Extrinsic asthma 06/09/2005 08/01/2021 Degeneration of intervertebral disc 03/06/2015 documented as of this encounter (statuses as of 04/11/2022) [facility] History of Past illness Narrative* Problem Noted Date Resolved Date Special screening for malignant neoplasms, colon 05/02/2015 05/02/2015 Thoracic or lumbosacral neuritis or radiculitis, unspecified 03/07/2015 01/05/2017 Occipital neuralgia 05/17/2013 01/05/2017 Overview: Dr. Dotty Levi, neurologist. Ganglion cyst 07/26/2012 05/17/2013 Uterine prolapse without mention of vaginal wall prolapse 12/21/2011 03/06/2015 Female stress incontinence 10/02/200903/06 Personal history of renal artery stenosis 200803/06/2015 Osteoarthritis, knee 06/12/2009 01/05/2012 Screening for malignant neoplasm of the cervix 1 10/28/2007 01/05/2012 Personal history of colonic polyps 07/16/2008 06/20/2010 Bronchiectasis without acute exacerbation 200501/06/2018 Extrinsic asthma 06/09/2005 08/01/2021 Degeneration of intervertebral disc 03/06/2015 documented as of this encounter (statuses as of 06/10/2022) [facility] History of Past illness Narrative* Problem Noted Date Resolved Date Special screening for malignant neoplasms, colon 05/02/2015 05/02/2015 Thoracic or lumbosacral neuritis or radiculitis, unspecified 03/07/2015 01/05/2017 Occipital neuralgia 05/17/2013 01/05/2017 Overview: Dr. Dotty Levi, neurologist. Ganglion cyst 07/26/2012 05/17/2013 Uterine prolapse without mention of vaginal wall prolapse 12/21/2011 03/06/2015 Female stress incontinence 10/02/200903/06 Personal history of renal artery stenosis 200803/06/2015 Osteoarthritis, knee 06/12/2009 01/05/2012 Screening for malignant neoplasm of the cervix 1 10/28/2007 01/05/2012 Personal history of colonic polyps 07/16/2008 06/20/2010 Bronchiectasis without acute exacerbation 200501/06/2018 Extrinsic asthma 06/09/2005 08/01/2021 Degeneration of intervertebral disc 03/06/2015 documented as of this encounter (statuses as of 07/08/2022) [facility] History of Past illness Narrative* Problem Noted Date Resolved Date Special screening for malignant neoplasms, colon 05/02/2015 05/02/2015 Thoracic or lumbosacral neuritis or radiculitis, unspecified 03/07/2015 01/05/2017 Occipital neuralgia 05/17/2013 01/05/2017 Overview: Dr. Dotty Levi, neurologist. Ganglion cyst 07/26/2012 05/17/2013 Uterine prolapse without mention of vaginal wall prolapse 12/21/2011 03/06/2015 Female stress incontinence 10/02/200903/06 Personal history of renal artery stenosis 200803/06/2015 Osteoarthritis, knee 06/12/2009 01/05/2012 Screening for malignant neoplasm of the cervix 1 10/28/2007 01/05/2012 Personal history of colonic polyps 07/16/2008 06/20/2010 Bronchiectasis without acute exacerbation 200501/06/2018 Extrinsic asthma 06/09/2005 08/01/2021 Degeneration of intervertebral disc 03/06/2015 documented as of this encounter (statuses as of 09/12/2022) [facility] History of Past illness Narrative* Problem Noted Date Resolved Date Special screening for malignant neoplasms, colon 05/02/2015 05/02/2015 Thoracic or lumbosacral neuritis or radiculitis, unspecified 03/07/2015 01/05/2017 Occipital neuralgia 05/17/2013 01/05/2017 Overview: Dr. Dotty Levi, neurologist. Ganglion cyst 07/26/2012 05/17/2013 Uterine prolapse without mention of vaginal wall prolapse 12/21/2011 03/06/2015 Female stress incontinence 10/02/200903/06 Personal history of renal artery stenosis 200803/06/2015 Osteoarthritis, knee 06/12/2009 01/05/2012 Screening for malignant neoplasm of the cervix 1 10/28/2007 01/05/2012 Personal history of colonic polyps 07/16/2008 06/20/2010 Bronchiectasis without acute exacerbation 200501/06/2018 Extrinsic asthma 06/09/2005 08/01/2021 Degeneration of intervertebral disc 03/06/2015 documented as of this encounter (statuses as of 09/16/2022) [facility] History of Past illness Narrative* Problem Noted Date Resolved Date Special screening for malignant neoplasms, colon 05/02/2015 05/02/2015 Thoracic or lumbosacral neuritis or radiculitis, unspecified 03/07/2015 01/05/2017 Occipital neuralgia 05/17/2013 01/05/2017 Overview: Dr. Dotty Levi, neurologist. Ganglion cyst 07/26/2012 05/17/2013 Uterine prolapse without mention of vaginal wall prolapse 12/21/2011 03/06/2015 Female stress incontinence 10/02/200903/06 Personal history of renal artery stenosis 200803/06/2015 Osteoarthritis, knee 06/12/2009 01/05/2012 Screening for malignant neoplasm of the cervix 1 10/28/2007 01/05/2012 Personal history of colonic polyps 07/16/2008 06/20/2010 Bronchiectasis without acute exacerbation 200501/06/2018 Extrinsic asthma 06/09/2005 08/01/2021 Degeneration of intervertebral disc 03/06/2015 documented as of this encounter (statuses as of 10/10/2022) [facility] History of Past illness Narrative* Problem Noted Date Resolved Date Special screening for malignant neoplasms, colon 05/02/2015 05/02/2015 Thoracic or lumbosacral neuritis or radiculitis, unspecified 03/07/2015 01/05/2017 Occipital neuralgia 05/17/2013 01/05/2017 Overview: Dr. Dotty Levi, neurologist. Ganglion cyst 07/26/2012 05/17/2013 Uterine prolapse without mention of vaginal wall prolapse 12/21/2011 03/06/2015 Female stress incontinence 10/02/200903/06 Personal history of renal artery stenosis 200803/06/2015 Osteoarthritis, knee 06/12/2009 01/05/2012 Screening for malignant neoplasm of the cervix 1 10/28/2007 01/05/2012 Personal history of colonic polyps 07/16/2008 06/20/2010 Bronchiectasis without acute exacerbation 200501/06/2018 Extrinsic asthma 06/09/2005 08/01/2021 Degeneration of intervertebral disc 03/06/2015 documented as of this encounter (statuses as of 10/13/2022) [facility] History of Past illness Narrative* Problem Noted Date Resolved Date Special screening for malignant neoplasms, colon 05/02/2015 05/02/2015 Thoracic or lumbosacral neuritis or radiculitis, unspecified 03/07/2015 01/05/2017 Occipital neuralgia 05/17/2013 01/05/2017 Overview: Dr. Dotty Levi, neurologist. Ganglion cyst 07/26/2012 05/17/2013 Uterine prolapse without mention of vaginal wall prolapse 12/21/2011 03/06/2015 Female stress incontinence 10/02/200903/06 Personal history of renal artery stenosis 200803/06/2015 Osteoarthritis, knee 06/12/2009 01/05/2012 Screening for malignant neoplasm of the cervix 1 10/28/2007 01/05/2012 Personal history of colonic polyps 07/16/2008 06/20/2010 Bronchiectasis without acute exacerbation 200501/06/2018 Extrinsic asthma 06/09/2005 08/01/2021 Degeneration of intervertebral disc 03/06/2015 documented as of this encounter (statuses as of 12/23/2022) [facility] History of Past illness Narrative* Problem Noted Date Resolved Date Special screening for malignant neoplasms, colon 05/02/2015 05/02/2015 Thoracic or lumbosacral neuritis or radiculitis, unspecified 03/07/2015 01/05/2017 Occipital neuralgia 05/17/2013 01/05/2017 Overview: Dr. Dotty Levi, neurologist. Ganglion cyst 07/26/2012 05/17/2013 Uterine prolapse without mention of vaginal wall prolapse 12/21/2011 03/06/2015 Female stress incontinence 10/02/200903/06 Personal history of renal artery stenosis 200803/06/2015 Osteoarthritis, knee 06/12/2009 01/05/2012 Screening for malignant neoplasm of the cervix 1 10/28/2007 01/05/2012 Personal history of colonic polyps 07/16/2008 06/20/2010 Bronchiectasis without acute exacerbation 200501/06/2018 Extrinsic asthma 06/09/2005 08/01/2021 Degeneration of intervertebral disc 03/06/2015 documented as of this encounter (statuses as of 12/29/2022) [facility] History of Past illness Narrative* Problem Noted Date Resolved Date Special screening for malignant neoplasms, colon 05/02/2015 05/02/2015 Thoracic or lumbosacral neuritis or radiculitis, unspecified 03/07/2015 01/05/2017 Occipital neuralgia 05/17/2013 01/05/2017 Overview: Dr. Dotty Levi, neurologist. Ganglion cyst 07/26/2012 05/17/2013 Uterine prolapse without mention of vaginal wall prolapse 12/21/2011 03/06/2015 Female stress incontinence 10/02/200903/06 Personal history of renal artery stenosis 200803/06/2015 Osteoarthritis, knee 06/12/2009 01/05/2012 Screening for malignant neoplasm of the cervix 1 10/28/2007 01/05/2012 Personal history of colonic polyps 07/16/2008 06/20/2010 Bronchiectasis without acute exacerbation 200501/06/2018 Extrinsic asthma 06/09/2005 08/01/2021 Degeneration of intervertebral disc 03/06/2015 documented as of this encounter (statuses as of 01/14/2023) [facility] History of Past illness Narrative* Problem Noted Date Resolved Date Special screening for malignant neoplasms, colon 05/02/2015 05/02/2015 Thoracic or lumbosacral neuritis or radiculitis, unspecified 03/07/2015 01/05/2017 Occipital neuralgia 05/17/2013 01/05/2017 Overview: Dr. Dotty Levi, neurologist. Ganglion cyst 07/26/2012 05/17/2013 Uterine prolapse without mention of vaginal wall prolapse 12/21/2011 03/06/2015 Female stress incontinence 10/02/200903/06 Personal history of renal artery stenosis 200803/06/2015 Osteoarthritis, knee 06/12/2009 01/05/2012 Screening for malignant neoplasm of the cervix 1 10/28/2007 01/05/2012 Personal history of colonic polyps 07/16/2008 06/20/2010 Bronchiectasis without acute exacerbation 200501/06/2018 Extrinsic asthma 06/09/2005 08/01/2021 Degeneration of intervertebral disc 03/06/2015 documented as of this encounter (statuses as of 02/06/2023) [facility] History of Past illness Narrative* Problem Noted Date Resolved Date Special screening for malignant neoplasms, colon 05/02/2015 05/02/2015 Thoracic or lumbosacral neuritis or radiculitis, unspecified 03/07/2015 01/05/2017 Occipital neuralgia 05/17/2013 01/05/2017 Overview: Dr. Dotty Levi, neurologist. Ganglion cyst 07/26/2012 05/17/2013 Uterine prolapse without mention of vaginal wall prolapse 12/21/2011 03/06/2015 Female stress incontinence 10/02/200903/06 Personal history of renal artery stenosis 200803/06/2015 Osteoarthritis, knee 06/12/2009 01/05/2012 Screening for malignant neoplasm of the cervix 1 10/28/2007 01/05/2012 Personal history of colonic polyps 07/16/2008 06/20/2010 Bronchiectasis without acute exacerbation 200501/06/2018 Extrinsic asthma 06/09/2005 08/01/2021 Degeneration of intervertebral disc 03/06/2015 documented as of this encounter (statuses as of 03/31/2023) [facility] History of Past illness Narrative* Problem Noted Date Diagnosed Date Resolved Date Special screening for malign ant neoplasms, colon 05/02/2015 05/02/2015 Thoracic or lumbosacral neur itis or radiculitis, unspecified 03/07/2015 01/05/2017 Occipital neuralgia 05/17/2013 01/06/20 Overview: Dr. Dotty Levi, neurologist. Ganglion cyst 07/26/2012 05/17/2013 Uterine prolapse without men tion of vaginal wall prolapse 12/21/2011 03/06/2015 Female stress incontinence 10/02/2009 0 03/06/2015 Personal history of renal artery stenosis 08/23/2009 03/06/2015 Osteoarthritis, knee 06/12/2009 012 Screening for malignant neop lasm of the cervix 08/28/2008 01/05/2012 Personal history of colonic polyps 07/16/2008 06/20/2010 Bronchiectasis without acute exacerbation 08/18/2006 01/06/2018 Extrinsic asthma 06/09/2005 08/01/2021 Degeneration of intervertebral disc 03/06/2015 documented as of this encounter (statuses as of 06/28/2023) [facility] History of Past illness Narrative* Problem Noted Date Diagnosed Date Resolved Date Special screening for malign ant neoplasms, colon 05/02/2015 05/02/2015 Thoracic or lumbosacral neur itis or radiculitis, unspecified 03/07/2015 01/05/2017 Occipital neuralgia 05/17/2013 01/06/20 17 Overview: Dr. Dotty Levi, neurologist. Ganglion cyst 07/26/2012 05/17/2013 Uterine prolapse without men tion of vaginal wall prolapse 12/21/2011 03/06/2015 Female stress incontinence 10/02/2009 0 03/06/2015 Personal history of renal artery stenosis 08/23/2009 03/06/2015 Osteoarthritis, knee 06/12/2009 012 Screening for malignant neop lasm of the cervix 08/28/2008 01/05/2012 Personal history of colonic polyps 07/16/2008 06/20/2010 Bronchiectasis without acute exacerbation 08/18/2006 01/06/2018 Extrinsic asthma 06/09/2005 08/01/2021 Degeneration of intervertebral disc 03/06/2015 documented as of this encounter (statuses as of 07/03/2023) [facility] History of Past illness Narrative* Problem Noted Date Diagnosed Date Resolved Date Special screening for malign ant neoplasms, colon 05/02/2015 05/02/2015 Thoracic or lumbosacral neur itis or radiculitis, unspecified 03/07/2015 01/05/2017 Occipital neuralgia 05/17/2013 01/06/20 17 Overview: Dr. Dotty Levi, neurologist. Ganglion cyst 07/26/2012 05/17/2013 Uterine prolapse without men tion of vaginal wall prolapse 12/21/2011 03/06/2015 Female stress incontinence 10/02/2009 0 03/06/2015 Personal history of renal artery stenosis 08/23/2009 03/06/2015 Osteoarthritis, knee 06/12/2009 012 Screening for malignant neop lasm of the cervix 08/28/2008 01/05/2012 Personal history of colonic polyps 07/16/2008 06/20/2010 Bronchiectasis without acute exacerbation 08/18/2006 01/06/2018 Extrinsic asthma 06/09/2005 08/01/2021 Degeneration of intervertebral disc 03/06/2015 documented as of this encounter (statuses as of 07/29/2023) [facility] History of Past illness Narrative* Problem Noted Date Diagnosed Date Resolved Date Special screening for malign ant neoplasms, colon 05/02/2015 05/02/2015 Thoracic or lumbosacral neur itis or radiculitis, unspecified 03/07/2015 01/05/2017 Occipital neuralgia 05/17/2013 01/06/20 17 Overview: Dr. Dotty Levi, neurologist. Ganglion cyst 07/26/2012 05/17/2013 Uterine prolapse without men tion of vaginal wall prolapse 12/21/2011 03/06/2015 Female stress incontinence 10/02/2009 0 03/06/2015 Personal history of renal artery stenosis 08/23/2009 03/06/2015 Osteoarthritis, knee 06/12/2009 012 Screening for malignant neop lasm of the cervix 08/28/2008 01/05/2012 Personal history of colonic polyps 07/16/2008 06/20/2010 Bronchiectasis without acute exacerbation 08/18/2006 01/06/2018 Extrinsic asthma 06/09/2005 08/01/2021 Degeneration of intervertebral disc 03/06/2015 documented as of this encounter (statuses as of 08/02/2023) [facility] History of Past illness Narrative* Problem Noted Date Diagnosed Date Resolved Date Special screening for malign ant neoplasms, colon 05/02/2015 05/02/2015 Thoracic or lumbosacral neur itis or radiculitis, unspecified 03/07/2015 01/05/2017 Occipital neuralgia 05/17/2013 01/06/20 17 Overview: Dr. Dotty Levi, neurologist. Ganglion cyst 07/26/2012 05/17/2013 Uterine prolapse without men tion of vaginal wall prolapse 12/21/2011 03/06/2015 Female stress incontinence 10/02/2009 0 03/06/2015 Personal history of renal artery stenosis 08/23/2009 03/06/2015 Osteoarthritis, knee 06/12/2009 012 Screening for malignant neop lasm of the cervix 08/28/2008 01/05/2012 Personal history of colonic polyps 07/16/2008 06/20/2010 Bronchiectasis without acute exacerbation 08/18/2006 01/06/2018 Extrinsic asthma 06/09/2005 08/01/2021 Degeneration of intervertebral disc 03/06/2015 documented as of this encounter (statuses as of 08/14/2023) [facility] History of Past illness Narrative* Problem Noted Date Diagnosed Date Resolved Date Special screening for malign ant neoplasms, colon 05/02/2015 05/02/2015 Thoracic or lumbosacral neur itis or radiculitis, unspecified 03/07/2015 01/05/2017 Occipital neuralgia 05/17/2013 01/06/20 17 Overview: Dr. Dotty Levi, neurologist. Ganglion cyst 07/26/2012 05/17/2013 Uterine prolapse without men tion of vaginal wall prolapse 12/21/2011 03/06/2015 Female stress incontinence 10/02/2009 0 03/06/2015 Personal history of renal artery stenosis 08/23/2009 03/06/2015 Osteoarthritis, knee 06/12/2009 012 Screening for malignant neop lasm of the cervix 08/28/2008 01/05/2012 Personal history of colonic polyps 07/16/2008 06/20/2010 Bronchiectasis without acute exacerbation 08/18/2006 01/06/2018 Extrinsic asthma 06/09/2005 08/01/2021 Degeneration of intervertebral disc 03/06/2015 documented as of this encounter (statuses as of 08/14/2023) [facility] History of Past illness Narrative* Problem Noted Date Diagnosed Date Resolved Date Special screening for malign ant neoplasms, colon 05/02/2015 05/02/2015 Thoracic or lumbosacral neur itis or radiculitis, unspecified 03/07/2015 01/05/2017 Occipital neuralgia 05/17/2013 01/06/20 17 Overview: Dr. Dotty Levi, neurologist. Ganglion cyst 07/26/2012 05/17/2013 Uterine prolapse without men tion of vaginal wall prolapse 12/21/2011 03/06/2015 Female stress incontinence 10/02/2009 0 03/06/2015 Personal history of renal artery stenosis 08/23/2009 03/06/2015 Osteoarthritis, knee 06/12/2009 012 Screening for malignant neop lasm of the cervix 08/28/2008 01/05/2012 Personal history of colonic polyps 07/16/2008 06/20/2010 Bronchiectasis without acute exacerbation 08/18/2006 01/06/2018 Extrinsic asthma 06/09/2005 08/01/2021 Degeneration of intervertebral disc 03/06/2015 documented as of this encounter (statuses as of 09/07/2023) [facility] History of Past illness Narrative* Problem Noted Date Diagnosed Date Resolved Date Special screening for malign ant neoplasms, colon 05/02/2015 05/02/2015 Thoracic or lumbosacral neur itis or radiculitis, unspecified 03/07/2015 01/05/2017 Occipital neuralgia 05/17/2013 01/06/20 17 Overview: Dr. Dotty Levi, neurologist. Ganglion cyst 07/26/2012 05/17/2013 Uterine prolapse without men tion of vaginal wall prolapse 12/21/2011 03/06/2015 Female stress incontinence 10/02/2009 0 03/06/2015 Personal history of renal artery stenosis 08/23/2009 03/06/2015 Osteoarthritis, knee 06/12/2009 012 Screening for malignant neop lasm of the cervix 08/28/2008 01/05/2012 Personal history of colonic polyps 07/16/2008 06/20/2010 Bronchiectasis without acute exacerbation 08/18/2006 01/06/2018 Extrinsic asthma 06/09/2005 08/01/2021 Degeneration of intervertebral disc 03/06/2015 documented as of this encounter (statuses as of 11/17/2023) [facility] Diagnosis Medicare annual wellness visit, subsequent- Primary Routine general medical examination at a health care facility Allergic rhinitis, unspecified seasonality, unspecified trigger Essential hypertension Unspecified essential hypertension Other hyperlipidemia Asthma-COPD overlap syndrome (HCC) Pulmonary emphysema, unspecified emphysema type (HCC) Bilateral carotid artery stenosis Occlusion and stenosis of carotid artery without mention of cerebral infarction 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) [facility] Asthma-COPD overlap syndrome (HCC) [facility] Diagnosis Near syncope- Primary Syncope and collapse Need for influenza vaccination Need for prophylactic vaccination and inoculation against influenza Need for COVID-19 vaccine Non-ischemic cardiomyopathy (HCC) Other primary cardiomyopathies Bilateral carotid artery stenosis Occlusion and stenosis of carotid artery without mention of cerebral infarction Essential hypertension Unspecified essential hypertension [facility] Diagnosis Black stools- Primary Nonspecific abnormal finding in stool contents [facility] Diagnosis Osteoporotic compression fracture of spine with routine healing Asthma-COPD overlap syndrome (HCC) [facility] Diagnosis Asthma-COPD overlap syndrome (HCC)- Primary Allergic rhinitis, unspecified seasonality, unspecified trigger Pulmonary emphysema, unspecified emphysema type (HCC) Non-ischemic cardiomyopathy (HCC) Other primary cardiomyopathies 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) [facility] Diagnosis Osteoporotic compression fracture of spine with routine healing- Primary Other hyperlipidemia 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) [facility] Diagnosis Asthma-COPD overlap syndrome Centrilobular emphysema (HCC) Other emphysema [facility]* Diagnosis Medicare annual wellness visit, subsequent- Primary Routine general medical examination at a health care facility Need for influenza vaccination Need for prophylactic vaccination and inoculation against influenza Need for COVID-19 vaccine Bilateral carotid artery stenosis Occlusion and stenosis of carotid artery without mention of cerebral infarction Asthma-COPD overlap syndrome Pulmonary emphysema, unspecified emphysema type (HCC) Essential hypertension Unspecified essential hypertension Subacute vaginitis Abdominal mass, left lower quadrant Abdominal or pelvic swelling, mass, or lump, left lower quadrant Left lower quadrant abdominal pain Other hyperlipidemia [facility] Diagnosis Abdominal mass, left lower quadrant Abdominal or pelvic swelling, mass, or lump, left lower quadrant Left lower quadrant abdominal pain [facility] Diagnosis Asthma-COPD overlap syndrome Centrilobular emphysema (HCC) Other emphysema [facility] Diagnosis Osteoporotic compression fracture of spine with routine healing- Primary documented in this encounter [facility] Summary Purpose Family History No Family History Records FoundNo Family History Records FoundNo Family History Records FoundNo Family History Records Found Advance Directives No Advanced Directives Records FoundNo Advanced Directives Records FoundNo Advanced Directives Records FoundNo Advanced Directives Records Found Reason for Referral Specialty Diagnoses / Procedures Referred By Dania t Referred To Contact CT IMAGING Diagnoses Abdominal mass, left lower quadrant Left lower quadrant abdominal pain Procedures CT ABD/PEL WO IVCON CT ABD & PELVIS W/O CONTRAST Alberto Ruano MD [address] [place] [address] [place] [id number] Referral ID Status Reason Start Date Expiration Date Visits Requested Visits Authorized [id number] Pending Review Auto-Generat ed Referral 3 08/26/2024 1 1 Additional Source Comments INFORMATION SOURCE (unrecogn ized section and content) DATE CREATED AUTHOR AUTHOR'S ORGANIZ ATION 03/29/2018 [facility] DATE CREATED AUTHOR AUTHOR'S ORGANIZ ATION 09/13/2019 [facility] [place] DATE CREATED AUTHOR AUTHOR'S ORGANIZ ATION 11/19/2023 [facility] Source Comments (unrecognize d section and content) In the event this informatio n is protected by the Federal Confidentiality of Alcohol and Drug Abuse Patient Records regulations: The Federal rules restrict any use of the information to criminally investigate or prosecute any alcohol or drug abuse patient.[facility] the event this information is protected by the Federal Confidentiality of Alcohol and Drug Abuse Patient Records regulations: The Federal rules restrict any use of the information to criminally investigate or prosecute any alcohol or drug abuse patient.[facility] the event this information is protected by the Federal Confidentiality of Alcohol and Drug Abuse Patient Records regulations: The Federal rules restrict any use of the information to criminally investigate or prosecute any alcohol or drug abuse patient.[facility] the event this information is protected by the Federal Confidentiality of Alcohol and Drug Abuse Patient Records regulations: The Federal rules restrict any use of the information to criminally investigate or prosecute any alcohol or drug abuse patient.[facility] the event this information is protected by the Federal Confidentiality of Alcohol and Drug Abuse Patient Records regulations: The Federal rules restrict any use of the information to criminally investigate or prosecute any alcohol or drug abuse patient.[facility] the event this information is protected by the Federal Confidentiality of Alcohol and Drug Abuse Patient Records regulations: The Federal rules restrict any use of the information to criminally investigate or prosecute any alcohol or drug abuse patient.[facility] the event this information is protected by the Federal Confidentiality of Alcohol and Drug Abuse Patient Records regulations: The Federal rules restrict any use of the information to criminally investigate or prosecute any alcohol or drug abuse patient.[facility] the event this information is protected by the Federal Confidentiality of Alcohol and Drug Abuse Patient Records regulations: The Federal rules restrict any use of the information to criminally investigate or prosecute any alcohol or drug abuse patient.[facility] the event this information is protected by the Federal Confidentiality of Alcohol and Drug Abuse Patient Records regulations: The Federal rules restrict any use of the information to criminally investigate or prosecute any alcohol or drug abuse patient.[facility] the event this information is protected by the Federal Confidentiality of Alcohol and Drug Abuse Patient Records regulations: The Federal rules restrict any use of the information to criminally investigate or prosecute any alcohol or drug abuse patient.[facility] the event this information is protected by the Federal Confidentiality of Alcohol and Drug Abuse Patient Records regulations: The Federal rules restrict any use of the information to criminally investigate or prosecute any alcohol or drug abuse patient.[facility] the event this information is protected by the Federal Confidentiality of Alcohol and Drug Abuse Patient Records regulations: The Federal rules restrict any use of the information to criminally investigate or prosecute any alcohol or drug abuse patient.[facility] the event this information is protected by the Federal Confidentiality of Alcohol and Drug Abuse Patient Records regulations: The Federal rules restrict any use of the information to criminally investigate or prosecute any alcohol or drug abuse patient.[facility] HospitalIn the event this information is protected by the Federal Confidentiality of Alcohol and Drug Abuse Patient Records regulations: The Federal rules restrict any use of the information to criminally investigate or prosecute any alcohol or drug abuse patient.[facility] HospitalIn the event this information is protected by the Federal Confidentiality of Alcohol and Drug Abuse Patient Records regulations: The Federal rules restrict any use of the information to criminally investigate or prosecute any alcohol or drug abuse patient.[facility] HospitalIn the event this information is protected by the Federal Confidentiality of Alcohol and Drug Abuse Patient Records regulations: The Federal rules restrict any use of the information to criminally investigate or prosecute any alcohol or drug abuse patient.[facility] HospitalIn the event this information is protected by the Federal Confidentiality of Alcohol and Drug Abuse Patient Records regulations: The Federal rules restrict any use of the information to criminally investigate or prosecute any alcohol or drug abuse patient.[facility] HospitalIn the event this information is protected by the Federal Confidentiality of Alcohol and Drug Abuse Patient Records regulations: The Federal rules restrict any use of the information to criminally investigate or prosecute any alcohol or drug abuse patient.[facility]In the event this information is protected by the Federal Confidentiality of Alcohol and Drug Abuse Patient Records regulations: The Federal rules restrict any use of the information to criminally investigate or prosecute any alcohol or drug abuse patient.[facility] HospitalIn the event this information is protected by the Federal Confidentiality of Alcohol and Drug Abuse Patient Records regulations: The Federal rules restrict any use of the information to criminally investigate or prosecute any alcohol or drug abuse patient.[facility] HospitalIn the event this information is protected by the Federal Confidentiality of Alcohol and Drug Abuse Patient Records regulations: The Federal rules restrict any use of the information to criminally investigate or prosecute any alcohol or drug abuse patient.[facility] HospitalIn the event this information is protected by the Federal Confidentiality of Alcohol and Drug Abuse Patient Records regulations: The Federal rules restrict any use of the information to criminally investigate or prosecute any alcohol or drug abuse patient.[facility] HospitalIn the event this information is protected by the Federal Confidentiality of Alcohol and Drug Abuse Patient Records regulations: The Federal rules restrict any use of the information to criminally investigate or prosecute any alcohol or drug abuse patient.[facility] Reason for Visit (unrecogniz ed section and content) Reason Comments Results, Lab Reason Comments Spirometry Specialty Diagnoses / Procedures Referred By Contac t Referred To Contact [facility] Diagnoses Asthma-COPD overlap syndrome (HCC) Procedures SPIROMETRY BASELINE ONLY SPIROMETRY WO BRONCHODILATOR Stephanie Cruz, CHAITANYA [address] [address] Respiratory [place] [address] [place] [address] Referral ID Status Reason Start Date Expiration Date V isits Requested Visits Authorized [id number] Closed Auto-Generate d Referral 09/05/2021 10/05/2022 1 1 Reason Onset Date Comments Refill Request 06/10/2022 Reason Onset Date Comments F/U 6 months Immunizations 07/08/2022 Flu vaccination Reason Comments Gastrointestinal Bleed dark stool Reason Comments Results Reason Onset Date Comments Refill Request 10/06/2022 Reason Comments handicap placard Reason Comments Refill Request Reason Onset Date Comments Refill Request 12/29/2022 Reason Comments F/U 6 months Reason Onset Date Comments Refill Request 02/05/2023 Reason Comments Results Orders Reason Onset Date Comments Refill Request 06/28/2023 Reason Comments Patient Question Spiriva Refill Request Reason Onset Date Comments Medicare Wellness Exam Immunizations 07/28/2023 Flu vaccination Reason Comments Radiology CT Specialty Diagnoses / Procedures Referred By Contac t Referred To Contact CT IMAGING Diagnoses Abdominal mass, left lower quadrant Left lower quadrant abdominal pain Procedures CT ABD/PEL WO IVCON CT ABD & PELVIS W/O CONTRAST Alberto Ruano MD [address] [place] [address] [place] [address] Referral ID Status Reason Start Date Expiration Date V isits Requested Visits Authorized [id number] Closed Auto-Generate d Referral 07/29/2023 10/03/2023 1 1 Specialty Diagnoses / Procedures Referred By Dania zaidi Referred To Contact CT IMAGING Diagnoses Abdominal mass, left lower quadrant Left lower quadrant abdominal pain Procedures CT ABD/PEL WO IVCON CT ABD & PELVIS W/O CONTRAST Alberto Ruano MD [address] [place] [address] [place] [address] Reason Comments Imm/Inj Care Teams (unrecognized sec tion and content) 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 Start Date End Date Alberto Ruano MD [address] [place] [address] PCP - General 04/10/03 Tsering, Oskar S [address] [place] [address] [place] [address] Physician Cardiology 02/02/19 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 Specialty Start Date End Date Alberto Ruano MD [address] [place] [address] PCP - General 04/10/03 Tsering, Oskar S [address] [place] [address] [place] [address] Physician Cardiology 02/02/19 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 Specialty Start Date End Date Alberto Ruano MD [address] [place], [place] [id number] PCP - General 04/10/03 Tsering, Oskar S [address] [place] [address] [place] [address] Physician Cardiology 02/02/19 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 Specialty Start Date End Date Alberto Ruano MD [address] [facility] [place] [address] PCP - General 04/10/03 Tsering, Oskar S [address] [place] [address] Physician Cardiology 02/02/19 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 Specialty Start Date End Date Alberto Ruano MD [address] [facility] [place] [address] PCP - General 04/10/03 Tsering, Oskar S [address] [place] [address] Physician Cardiology 02/02/19 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 Specialty Start Date End Date Alberto Ruano MD [address] [facility] [place] [address] PCP - General 04/10/03 Tsering, Oskar S [address] [place] [address] Physician Cardiology 02/02/19 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 Specialty Start Date End Date Alberto Ruano MD [address] [facility] [place] [address] PCP - General 04/10/03 Tsering, Oskar S [address] [place] [address] Physician Cardiology 02/02/19 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 Specialty Start Date End Date Alberto Ruano MD [address] [facility] [place] [address] PCP - General 04/10/03 Tsering, [place] S [address] [place] [address] Physician Cardiology 02/02/19 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 Specialty Start Date End Date Alberto Ruano MD [address] [facility] [place] [address] PCP - General 04/10/03 Tsering, Oskar S [address] [facility] [address] [place] [address] Physician Cardiology 02/02/19 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 Specialty Start Date End Date Alberto Ruano MD [address] [facility] [place] [address] PCP - General 04/10/03 Tsering, [place] S [address] [facility] [address] [place] [address] Physician Cardiology 02/02/19 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 Specialty Start Date End Date Alberto Ruano MD [address] [facility] [place] [address] PCP - General 04/10/03 Tsering, [place] S [address] [facility] [address] [place] [address] Physician Cardiology 02/02/19 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 Specialty Start Date End Date Alberto Ruano MD [address] [facility] [place] [address] PCP - General 04/10/03 Oskar Cagle MD [address] [facility] [address] [place] [address] Physician Cardiology 02/02/19 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 Specialty Start Date End Date Alberto Ruano MD [address] [facility] [place] [address] PCP - General 04/10/03 Oskar Cagle MD [address] [address] Physician Cardiology 02/02/19 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 Specialty Start Date End Date Alberto Ruano MD [address] [place] [address] PCP - General 04/10/03 Oskar Cagle MD [address] [address] Physician Cardiology 02/02/19 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 Specialty Start Date End Date Alberto Ruano MD [address] [place] [address] PCP - General 04/10/03 Oskar Cagle MD [address] [address] Physician Cardiology 02/02/19 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 Specialty Start Date End Date Alberto Ruano MD [address] [place] [address] PCP - General 04/10/03 Oskar Cagle MD [address] [address] Physician Cardiology 02/02/19 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 Specialty Start Date End Date Alberto Ruano MD [address] [place] [address] PCP - General 04/10/03 Oskar Cagle MD [address] [address] Physician Cardiology 02/02/19 Active Administered Medications - up to 3 most recent administrations Administered Medications (un recognized section and content) FOR RECORDS PERTAINING TO PATIENTS WHO ARE OR HAVE BEEN ENROLLED IN A CHEMICAL DEPENDENCY/SUBSTANCEABUSE PROGRAM, SOME INFORMATION MAY BE OMITTED. This clinical summary was aggregated from multiple sources. Caution should be exercised in using it in the provision of clinical care. This summary normalizes information from multiple sources, and as a consequence, information in this document may materially change the coding, format and clinical context of patient data. In addition, data may be omitted in some cases. CLINICAL DECISIONS SHOULD BE BASED ON THE PRIMARY CLINICAL RECORDS. [facility]. provides no warranty or guarantee of the accuracy or completeness of information in this document.
== END | disposition home or self-care (01) ==
PROVIDERS: PCP Internal Medicine; Referring Provider Internal Medicine Cardiovascular Disease; Visit Provider Internal Medicine Cardiovascular Disease
DX: R09.89 Other specified symptoms and signs involving the circulatory and respiratory systems (principal); I25.10 Atherosclerotic heart disease of native coronary artery without angina pectoris; I15.0 Renovascular hypertension
CPT/HCPCS: 93306; 93880

== ENCOUNTER → 2024-01-03 | Outpatient (CLI) | payer MEDICARE, SELFPAY ==
--- NOTE | 2024-01-03 12:52 | CT_ITS ---
STUDY: CT CHEST WITH CONTRAST REASON FOR EXAM: Female, 84 years old. Abnormal result of other cardiovascular function s RADIATION DOSAGE (If Supplied By Facility): CTDIvol = ( 36.86 ) mGy, DLP = ( 1194.67 ) mGycm TECHNIQUE: Transaxial imaging was performed following intravenous administration of 57 mL of Isovue-370. Cardiac Overread examination. Individualized dose optimization techniques were used for this CT. COMPARISON: No relevant priors. FINDINGS: CHEST Mild emphysematous changes. Linear scar is seen in the superior segment of the left lower lobe. Mild scarring at the lung bases. There is no demonstrated pleural abnormality. There are calcifications of the coronary arteries. Normal mediastinum. Normal hilar regions. Normal unenhanced pulmonary arteries. There is atherosclerotic calcification of the aortic arch. Normal osseous structures. There is no demonstrated abnormality of the visualized upper abdomen. CT/Limited Chest CT Cardiac Only IMPRESSION: Coronary artery calcification. Electronically Signed: Jesse Sullivan MD at 12:08 EDT ,
[2024-01-03 13:06] VITALS: BP 120/79; PULSE 69; RESP 18; TEMP 36.4; O2SAT 96; BMI 24.5
[2024-01-03 13:41] VITALS: BP 120/79; PULSE 68
[2024-01-03] MEDS: Nitroglycerin SL (ED/IMG/CATH) 0.4 MG TABLET SL (13:41)
[2024-01-03 13:44] LABS: CREATININE FINGERSTICK < 1.0 mg/dL (0.55-1.02); EGFR FINGERSTICK > 60.0000 mL/min (>60)
[2024-01-03 14:05] VITALS: BP 194/77; PULSE 70
[2024-01-03] MEDS: 0.9% Saline Lock 10 ML Syringe IV (14:05)
[2024-01-03] MEDS: Metoprolol Tartrate 5 MG/5 ML Vial IV (14:05)
[2024-01-03 14:09] VITALS: BP 187/69; PULSE 66
--- NOTE | 2024-01-03 14:10 | NURSING ---
scan suboptimal as pulse rate didn't stay below 70 during scan. medicated with metoprolol and monitoring HR/BP.
[2024-01-03 14:30] VITALS: BP 120/79; BP 186/79; PULSE 72; RESP 18; O2SAT 96
--- NOTE | 2024-01-04 16:36 | CCTA.WCONT ---
CCTA w/Cont Coronary Arteries Date of Study:: 01/03/24 Abnormal echo Coronary Calcium Scoring: High-resolution Computed Tomographic imaging of the chest was performed on [01/03/2024], with particular attention paid to the coronary arteries. Intravenous contrast agent was administered per protocol and images reconstructed and displayed. The images were suboptimal due to patient movement as well as high heart rate. Patient needed to be administered oral metoprolol to get heart rates to the mid 70s. LEFT MAIN CORONARY ARTERY: Arises from the left coronary cusp and appears to be normal and bifurcates to left anterior descending artery and left circumflex artery. [] LEFT ANTERIOR DESCENDING CORONARY ARTERY: Significant motion artifact noted with calcification in the proximal and mid regions. Difficult to ascertain exact stenosis. [] LEFT CIRCUMFLEX CORONARY ARTERY: Severely calcified in the proximal and mid segments with blooming artifact and difficult to interpret extent of stenosis [] RIGHT CORONARY ARTERY: Suboptimal injection and opacification with difficult to interpret stenosis. [] THORACIC AORTA: [] PULMONARY ARTERY: [] LEFT ATRIUM/APPENDAGE: [] MITRAL VALVE: [] AORTIC VALVE: [] LEFT VENTRICLE: [] CORONARY CALCIUM SCORE: Not performed Conclusion: Suboptimal coronary CT with inability to determine extent of coronary stenosis. However significant calcification is noted in the LAD and left circumflex arterial systems. []
== END | disposition home or self-care (01) ==
PROVIDERS: PCP Internal Medicine; Referring Provider Physician Assistant Medical; Visit Provider Physician Assistant Medical
DX: R93.1 Abnormal findings on diagnostic imaging of heart and coronary circulation (principal); R94.39 Abnormal result of other cardiovascular function study
CPT/HCPCS: 75574; 76380; Q9967; A4216

== ENCOUNTER 2024-07-11 15:32 | Inpatient (IN) | payer MEDICARE, SELFPAY ==
[2024-07-11] VITALS (7 sets, daily range): BP systolic 133–179; BP diastolic 101–111; PULSE 93–106; RESP 16–22; TEMP 36.5–36.8; O2SAT 94–97; BMI 26.3
--- NOTE | 2024-07-11 15:40 | EKG12_ITS ---
Test Reason : SOB Blood Pressure : / mmHG Vent. Rate : 096 BPM Atrial Rate : 096 BPM P-R Int : 204 ms QRS Dur : 164 ms QT Int : 394 ms P-R-T Axes : 079 -56 075 degrees QTc Int : 497 ms Normal sinus rhythm Left axis deviation Left bundle branch block Minimal voltage criteria for LVH, may be normal variant ( [place] product ) Confirmed by HTU CARABALLO, CHELA ([id number]), copy editor XUAN CUNNINGHAM ([id number]) on 07/14/2024 1:51:00 PM Referred By: Confirmed By:CHELA ANDINO MD
--- NOTE | 2024-07-11 15:43 | ED.VIS.DYS ---
HPI History of Present Illness Chief Complaint: Shortness of Breath Narrative Narrative: Chief complaint and HPI: Shortness of breath. 84-year-old female with history of CHF, COPD, CAD, HLD, HTN presents for evaluation of shortness of breath. Patient states that she has had progressive worsening shortness of breath for the past week. She endorses exertional dyspnea as well as orthopnea. Patient states that she has had increased bilateral lower extremity swelling as well. She endorses mild chest pressure ongoing for the past week. She endorses worsening cough. She denies any sick contacts. Denies any fever, chills, URI symptoms, abdominal pain, nausea, vomiting, diarrhea, dysuria. Patient has not weighed herself. She endorses normal p.o. intake. Has been using her home nebulizers. Review of systems: See HPI Medications: As listed on the chart Allergies: As listed on the chart PFSH: Per chart Vital signs: As listed on the chart. Reviewed. Physical exam: Gen: A&O x3, NAD Head: Normocephalic, atraumatic Eyes: No sclera icterus, conjunctiva clear ENT: Moist mucous membranes Neck: Trachea midline, No JVD CV: RRR, no murmurs, + 2 pitting bilateral peripheral edema Resp: Lungs diminished in the bilateral bases, no wheezing, intermittent pursed lipped breathing GI: Abd soft, non-distended, non-tender, no r/r/g Musc: Moves all extremities, no deformity Skin: Warm, dry Neuro: Alert, oriented, grossly intact, sensation intact Psych: Cooperative, appropriate mood and affect [facility] Medical History (Updated 07/11/24 @ 22:[address] Deon Diaz MD) Osteoarthritis Osteoporosis Non-smoker Irregular heart beat Hypertension Congestive heart failure (CHF) Alcohol abuse Use of cane as ambulatory aid Mitral regurgitation CAD (coronary artery disease) Wears hearing aid Wears glasses Alcohol use Arthritis High cholesterol Excessive bleeding History of recent fall Back pain Dietary restriction Gastric reflux Former smoker Emphysema, unspecified COPD (chronic obstructive pulmonary disease) Asthma Shortness of breath on exertion Leg cramps History of pain when walking History of echocardiogram History of stress test Cardiology follow-up encounter HLD (hyperlipidemia) Valvular heart disease Chest pressure Hepatic cyst Bilateral carotid artery disease Atherosclerotic heart disease of [place] coronary artery without angina pectoris LBBB (left bundle branch block) Renovascular hypertension Essential hypertension GERD (gastroesophageal reflux disease) Nonischemic cardiomyopathy Dyslipidemia Asthma Chest pain Home Medications ?Medication ?Instructions ?Recorded ?Last Taken ?Type aspirin 81 mg tablet,delayed 81 mg PO DAILY@0800 09/09/18 01/03/24 History release loratadine 10 mg tablet 10 mg PO DAILY 09/09/18 Unknown History montelukast 10 mg tablet 10 mg PO DAILY 09/09/18 Unknown History multivitamin with folic acid 400 1 tab PO DAILY 09/09/18 Unknown History mcg tablet budesonide-formoterol HFA 160 2 puff inhalation BID 08/08/19 Unknown History mcg-4.5 mcg/actuation aerosol inhaler (Symbicort) pantoprazole 20 mg tablet,delayed 20 mg PO DAILY 08/08/19 05/18/22 History release albuterol sulfate 2.5 mg/3 mL 2.5 mg inhalation Q4H PRN SOB 03/04/20 Unknown History (0.083 %) solution for nebulization hydrocodone-acetaminophen 5-325mg 1 tab PO TID PRN pain 06/19/22 Unknown History 5mg-325mg denosumab 60 mg/mL subcutaneous 60 mg subcut [id number] 10/25/23 Unknown History syringe (Prolia) carvedilol 12.5 mg tablet 12.5 mg PO BID #180 tabs 12/24/23 01/03/24 Rx losartan 50 mg tablet 50 mg PO DAILY #90 tabs 03/13/24 Unknown Rx isosorbide mononitrate 30 mg 30 mg PO DAILY #90 tabs 06/22/24 Unknown Rx tablet,extended release 24 hr nitroglycerin 0.4 mg sublingual See Rx Instructions .Route 06/22/24 Unknown Rx tablet .COMPLEX #25 tabs atorvastatin 40 mg tablet 40 mg PO DAILY 07/11/24 Unknown History calcium carbonate-vit D3-min 2 tab PO DAILY 07/11/24 Unknown History cholecalciferol (vitamin D3) 10 10 mcg PO DAILY 07/11/24 Unknown History mcg (400 unit) chewable tablet desoximetasone 0.25 % topical cream 1 applic topical DAILY PRN skin 07/11/24 Unknown History irritation ipratropium 20 mcg-albuterol 100 1 puff inhalation Q4H 07/11/24 Unknown History mcg/actuation mist for inhalation (Combivent Respimat) Allergy/AdvReac Type Severity Reaction Status Date / Time adhesive tape AdvReac Itching Verified 04/26/24 13:38 latex AdvReac Rash Verified 04/26/24 13:38 nabumetone (From Relafen) AdvReac Nausea Verified 04/26/24 13:38 ramipril (From Altace) AdvReac Other Verified 04/26/24 13:38 sulfamethoxazole (From AdvReac Nausea Verified 04/26/24 13:38 Bactrim) trimethoprim (From Bactrim) AdvReac Nausea Verified 04/26/24 13:38 Surgical History History of cardiac catheterization Hx of bilateral cataract extraction Hx of colonoscopy History of breast biopsy History of tonsillectomy Social History Smoking Status: Former smoker how long ago did patient quit smokin alcohol intake: current alcohol intake frequency: a few times a week Alcohol type: wine substance use type: does not use caffeine: Yes Type: coffee Number of servings: 2 EXAM Physical Exam Const Vital Signs: 07/11/24 15:32 07/11/24 15:36 07/11/24 15:52 Temperature 97.7 F L Temperature Source Oral Pulse Rate 99 93 Respiratory Rate 22 H 21 H Respiratory Pattern Normal Blood Pressure 169/108 H Blood Pressure Mean 128 Pulse Ox 97 Oxygen Delivery Method Room Air Room Air 07/11/24 17:32 Temperature Temperature Source Pulse Rate 98 Respiratory Rate 20 H Respiratory Pattern Blood Pressure 133/111 H Blood Pressure Mean 118 Pulse Ox 96 Oxygen Delivery Method Room Air MDM MDM MDM Narrative Medical decision making narrative: 84-year-old female with extensive cardiac history including COPD and CHF presents for evaluation of shortness of breath. Differential diagnosis includes but is not limited to CHF exacerbation, COPD exacerbation, ACS, pneumonia, viral illness. On physical exam, patient has +2 pitting peripheral edema. Suspect more of a CHF exacerbation. Lasix ordered. DuoNeb ordered. Respiratory/cardiac workup ordered. On chart review, patient had an echocardiogram in December 2023 EF was 35%. In July 2022 she had a stress test that was negative for ischemic disease. Venous pH unremarkable without hypercapnia. EKG and chest x-ray reviewed. See below. CBC without leukocytosis or anemia. BMP shows chronic hyponatremia with a sodium of 126. Her baseline is about 130. No TAMRA. Troponin 62 and 72. BNP elevated at 4276. Patient is in a CHF exacerbation. She already received Lasix. Patient will warrant admission for diuresis. Hospitalist service was contacted and patient was discussed with Dr. Brooks. He accepted admission. Patient and family updated all results and plan. They confirmed understanding EKG: Interpreted by me/EM physician: EKG shows normal sinus rhythm with known left bundle branch block. Heart rate 96. No STEMI. Diagnostic: Interpreted by me/EM physician: Chest x-ray shows mild pulmonary edema with small effusions, cardiomegaly. No pneumonia or pneumothorax. Impression: 1. CHF exacerbation 2. Acute on chronic hyponatremia Lab Data Labs: Laboratory Results - last 24 hr 07/11/24 07/11/24 15:39 17:48 WBC 7.5 RBC 4.29 Hgb 14.1 Hct 41.7 MCV 97.2 MCH 32.9 H MCHC 33.8 RDW Std Deviation 46.2 H RDW Coeff of Isidra 13.0 Plt Count 194 MPV 9.7 Immature Gran % (Auto) 0.400 Neut % (Auto) 70.7 H Lymph % (Auto) 19.7 [place] % (Auto) 8.6 Eos % (Auto) 0.3 Baso % (Auto) 0.3 Absolute Neuts (auto) 5.3 Absolute Lymphs (auto) 1.47 Nucleated RBC % 0 Sodium 126 L Potassium 4.7 Chloride 92 L Carbon Dioxide 24.0 Anion Gap 11 BUN 10 Creatinine 0.93 Est GFR (MDRD) Af Amer 73 Est GFR (MDRD) Non-Af 61 BUN/Creatinine Ratio 10.7 Glucose 141 H Calcium 9.3 Troponin I High Sens 62 H 72 H B-Natriuretic Peptide 4276.8 H ABG Data ABG results: ABG 07/11/24 16:06 Specimen Type GABRIELLE Sample Site Not entered VBG pH 7.38 VBG pO2 31 VBG HCO3 22 VBG Total CO2 23 VBG O2 Sat (Calc) 59 VBG Base Excess -3 L POC Mix VBG pCO2 Pt Tmp 37.2 L O2 Delivery Device Not entered Radiography Diagnostic Testing: Clinical Impression(s) from Imaging Studies Chest X-Ray 07/11/24 16:13 IMPRESSION: Mild subsegmental atelectasis or infiltrates of the lung bases with very small effusions. Electronically Signed: Ramirez Black MD at 16:27 EDT , Discharge Plan Disposition Disposition: Acute Care Hospital [facility] Discharge Date/Time: 07/11/24 21:11
[2024-07-11] MEDS: Furosemide 40 MG/4 ML Vial IV (15:47)
[2024-07-11] MEDS: Ipratropium/Albuterol Sulfate 3 ML AMPUL.NEB INHALATION (15:50)
[2024-07-11 15:56] LABS: Absolute Lymphocyte Count 1.47 X10^3/uL (0.83-4.51); Absolute Neutrophil Count 5.3 X10^3/uL (2.0-7.7); Basophil# 0.02 X10^3/uL; Basophil% 0.3 % (0-1); Eosinophil# 0.02 X10^3/uL; Eosinophils% 0.3 % (0-5); Hematocrit 41.7 % (37-47); Hemoglobin 14.1 g/dL (12.0-15.0); Lymphocyte # 1.47 X10^3/ul (0.83-4.51); Lymphocyte % 19.7 % (19-41); Mean Corp Hgb Conc 33.8 g/dL (32-36); Mean Corpuscular Hgb 32.9 pg (27.0-32.0); Mean Corpuscular Volume 97.2 fL (81-99); Mean Platelet Vol. 9.7 fl (6.2-12.0); Monocyte# 0.64 X10^3/uL; Monocyte% 8.6 % (0-10); NRBC Flagged by Analyzer 0 % (0-5); Neutrophil % 70.7 % (47-70); Platelet Count 194 K/mm3 (150-450); RBC Distribution Width SD 46.2 fl (35.1-43.9); Red Blood Count 4.29 M/mm3 (4.2-5.4); White Blood Count 7.5 K/mm3 (4.4-11.0)
[2024-07-11 16:09] LABS: Blood Gas Specimen Type VEN; O2 Delivery Device Not entered; SITE Not entered; VBG BASE EXCESS -3 mmol/L (-1.0-3.5); VBG Bicarbonate 22 mmol/L (22-26); VBG PO2 31 mmHg (25-40); VBG SO2 59 % (50-70); VBG TCO2 23 mmol/L (23-33); VBG pCO2 37.2 mmHg (41-51); VBG pH 7.38 (7.32-7.42)
--- NOTE | 2024-07-11 16:13 | RAD_ITS ---
STUDY: X-RAY CHEST REASON FOR EXAM: Female, 84 years old. Shortness of breath TECHNIQUE: Frontal and lateral views of the chest. COMPARISON: 05/16/2023. FINDINGS: Hyperexpansion of the lungs consistent with COPD. Mild hazy density of both lung bases suggestive of atelectasis or minimal infiltrates. Very small bilateral pleural effusions. There is mild to moderate cardiac enlargement. Normal mediastinum and rodrick. Normal visualized pulmonary arteries. There is atherosclerotic calcification of the aortic arch with tortuosity. There are diffuse degenerative changes of the visualized thoracic spine. There has been progressive loss of height of T11, T12, L1. Normal visualized ribs, clavicles, and shoulders. There is no demonstrated abnormality of the visualized soft tissue structures of the upper abdomen. RAD/Chest PA and Lateral IMPRESSION: Mild subsegmental atelectasis or infiltrates of the lung bases with very small effusions. Electronically Signed: Ramirez Black MD at 16:27 EDT ,
[2024-07-11 16:16] LABS: Anion Gap 11 (5-15); BUN 10 mg/dL (7-18); BUN/Creat Ratio 10.7 RATIO (10-20); Calcium,Total 9.3 mg/dL (8.5-10.1); Chloride 92 mmol/L (98-107); Creatinine, Serum 0.93 mg/dL (0.55-1.02); EST Glomerular Filtration Rate 61 mL/min (>60); Est Glom Filt Rate - Afr Amer 73 mL/min (>60); Glucose 141 mg/dL (74-106); Potassium 4.7 mmol/L (3.5-5.1); Sodium Level 126 mmol/L (136-145); Troponin-I HS (w/2H Reflex) 62 pg/mL (3.0-54.0)
[2024-07-11 17:25] LABS: BNP,B-Type NATRIURETIC PEPTIDE 4276.8 pg/mL (0-100)
[2024-07-11 17:48] LABS: Reflex Troponin-HS? (from REC) Y
[2024-07-11 18:18] LABS: Troponin-I HS 72 pg/mL (3.0-54.0)
--- NOTE | 2024-07-11 18:37 | PCM.HP.STD ---
[facility] - General General Date of Admission: 07/11/24 Date of Service: 07/11/24 Chief Complaint: Shortness of breath HPI Narrative JESUS AYOUB, is a 84 F with a significant history of COPD; combined systolic and diastolic dysfunction; and left lung lobectomy who presents with 1 week history of progressively worsening shortness of breath. Associated with her symptoms is worsening of bilateral lower extremity edema. Further she has orthopnea. She denies paroxysmal nocturnal dyspnea. She does not know that she has had any weight changes. [facility] Medical History (Updated 07/11/24 @ 22:[address] Deon Diaz MD) Osteoarthritis Osteoporosis Non-smoker Irregular heart beat Hypertension Congestive heart failure (CHF) Alcohol abuse Use of cane as ambulatory aid Mitral regurgitation CAD (coronary artery disease) Wears hearing aid Wears glasses Alcohol use Arthritis High cholesterol Excessive bleeding History of recent fall Back pain Dietary restriction Gastric reflux Former smoker Emphysema, unspecified COPD (chronic obstructive pulmonary disease) Asthma Shortness of breath on exertion Leg cramps History of pain when walking History of echocardiogram History of stress test Cardiology follow-up encounter HLD (hyperlipidemia) Valvular heart disease Chest pressure Hepatic cyst Bilateral carotid artery disease Atherosclerotic heart disease of [place] coronary artery without angina pectoris LBBB (left bundle branch block) Renovascular hypertension Essential hypertension GERD (gastroesophageal reflux disease) Nonischemic cardiomyopathy Dyslipidemia Asthma Chest pain Home Medications ?Medication ?Instructions ?Recorded ?Last Taken ?Type aspirin 81 mg tablet,delayed 81 mg PO DAILY@0800 09/09/18 01/03/24 History release loratadine 10 mg tablet 10 mg PO DAILY 09/09/18 Unknown History montelukast 10 mg tablet 10 mg PO DAILY 09/09/18 Unknown History multivitamin with folic acid 400 1 tab PO DAILY 09/09/18 Unknown History mcg tablet budesonide-formoterol HFA 160 2 puff inhalation BID 08/08/19 Unknown History mcg-4.5 mcg/actuation aerosol inhaler (Symbicort) pantoprazole 20 mg tablet,delayed 20 mg PO DAILY 08/08/19 05/18/22 History release albuterol sulfate 2.5 mg/3 mL 2.5 mg inhalation Q4H PRN SOB 03/04/20 Unknown History (0.083 %) solution for nebulization hydrocodone-acetaminophen 5-325mg 1 tab PO TID PRN pain 06/19/22 Unknown History 5mg-325mg denosumab 60 mg/mL subcutaneous 60 mg subcut [id number] 10/25/23 Unknown History syringe (Prolia) carvedilol 12.5 mg tablet 12.5 mg PO BID #180 tabs 12/24/23 01/03/24 Rx losartan 50 mg tablet 50 mg PO DAILY #90 tabs 03/13/24 Unknown Rx isosorbide mononitrate 30 mg 30 mg PO DAILY #90 tabs 06/22/24 Unknown Rx tablet,extended release 24 hr nitroglycerin 0.4 mg sublingual See Rx Instructions .Route 06/22/24 Unknown Rx tablet .COMPLEX #25 tabs atorvastatin 40 mg tablet 40 mg PO DAILY 07/11/24 Unknown History calcium carbonate-vit D3-min 2 tab PO DAILY 07/11/24 Unknown History cholecalciferol (vitamin D3) 10 10 mcg PO DAILY 07/11/24 Unknown History mcg (400 unit) chewable tablet desoximetasone 0.25 % topical cream 1 applic topical DAILY PRN skin 07/11/24 Unknown History irritation ipratropium 20 mcg-albuterol 100 1 puff inhalation Q4H 07/11/24 Unknown History mcg/actuation mist for inhalation (Combivent Respimat) Allergy/AdvReac Type Severity Reaction Status Date / Time adhesive tape AdvReac Itching Verified 04/26/24 13:38 latex AdvReac Rash Verified 04/26/24 13:38 nabumetone (From Relafen) AdvReac Nausea Verified 04/26/24 13:38 ramipril (From Altace) AdvReac Other Verified 04/26/24 13:38 sulfamethoxazole (From AdvReac Nausea Verified 04/26/24 13:38 Bactrim) trimethoprim (From Bactrim) AdvReac Nausea Verified 04/26/24 13:38 Surgical History History of cardiac catheterization Hx of bilateral cataract extraction Hx of colonoscopy History of breast biopsy History of tonsillectomy Social History Smoking Status: Former smoker how long ago did patient quit smokin alcohol intake: current alcohol intake frequency: a few times a week Alcohol type: wine substance use type: does not use caffeine: Yes Type: coffee Number of servings: 2 ROS ROS Narrative Pertinent positives and pertinent negatives as noted in HPI. All other systems were reviewed and are negative Vital Signs Vital Signs Vital Signs: 07/11/24 15:32 07/11/24 15:36 07/11/24 15:52 Temperature 97.7 F L Temperature Source Oral Pulse Rate 99 93 Respiratory Rate 22 H 21 H Respiratory Pattern Normal Blood Pressure 169/108 H Blood Pressure Mean 128 Pulse Ox 97 Oxygen Delivery Method Room Air Room Air 07/11/24 17:32 Temperature Temperature Source Pulse Rate 98 Respiratory Rate 20 H Respiratory Pattern Blood Pressure 133/111 H Blood Pressure Mean 118 Pulse Ox 96 Oxygen Delivery Method Room Air Physical Exam Narrative Physical exam: General: Well-nourished, well-developed. Head: Normocephalic, atraumatic, no tenderness Eyes: Vision is grossly intact. EOMI ENT, no trauma, moist mucous membranes, no rhinorrhea Neck: Nontender, No thyromegaly. CVS: Tachycardia. S1-S2 present. No murmur, gallop or rub. Respiratory : Mild rales. chest wall nontender Abdomen: Soft, nontender, nondistended, normal bowel sounds, no masses : Deferred Back: Nontender, no CVA tenderness, no midline spinal tenderness, deformities, step-offs Extremities: Nontender full range of motion, no trauma Skin: Normal color, no trauma, abrasions Neuro: Alert, oriented, cranial nerves II through XII grossly intact. Psychiatry: Normal mood. Normal affect. Not depressed. Not anxious. Results Lab / Micro Data 07/11/24 15:39 07/11/24 15:39 Labs: Laboratory Results - last 24 hr 07/11/24 15:39: WBC 7.5, RBC 4.29, Hgb 14.1, Hct 41.7, MCV 97.2, MCH 32.9 H, MCHC 33.8, RDW Std Deviation 46.2 H, RDW Coeff of Isidra 13.0, Plt Count 194, MPV 9.7, Immature Gran % (Auto) 0.400, Neut % (Auto) 70.7 H, Lymph % (Auto) 19.7, [place] % (Auto) 8.6, Eos % (Auto) 0.3, Baso % (Auto) 0.3, Absolute Neuts (auto) 5.3, Absolute Lymphs (auto) 1.47, Nucleated RBC % 0, Sodium 126 L, Potassium 4.7, Chloride 92 L, Carbon Dioxide 24.0, Anion Gap 11, BUN 10, Creatinine 0.93, Est GFR (MDRD) Af Amer 73, Est GFR (MDRD) Non-Af 61, BUN/Creatinine Ratio 10.7, Glucose 141 H, Calcium 9.3, Troponin I High Sens 62 H, B-Natriuretic Peptide 4276.8 H 07/11/24 17:48: Troponin I High Sens 72 H Micro: Microbiology 07/11/24 16:02 Mucosa - Nasopharyngeal SARS-CoV-2, Influenza & RSV (PCR) - Final ABG Data ABG results: ABG 07/11/24 16:06 Specimen Type GABRIELLE Sample Site Not entered VBG pH 7.38 VBG pO2 31 VBG HCO3 22 VBG Total CO2 23 VBG O2 Sat (Calc) 59 VBG Base Excess -3 L POC Mix VBG pCO2 Pt Tmp 37.2 L O2 Delivery Device Not entered Imaging Radiology Impression Chest X-Ray 07/11/24 16:13 IMPRESSION: Mild subsegmental atelectasis or infiltrates of the lung bases with very small effusions. Electronically Signed: Ramirez Black MD at 16:27 EDT , Assessment & Plan Assessment/Plan (1) Chest pressure: (2) Atherosclerotic heart disease of [place] coronary artery without angina pectoris: QUALIFIERS: [place] vs. transplanted heart: [place] heart Qualified Code(s): I25.10 - Atherosclerotic heart disease of [place] coronary artery without angina pectoris PLAN: Plan Labs and imaging were reviewed. Chest x-ray independently interpreted showed Mild subsegmental atelectasis or infiltrates of the lung bases with very small effusions. Agrees with radiology interpretation. Place on monitored bed at the progressive care unit Weight on admission to the floor; and then daily Strict I&O's Lasix 40 mg IV push twice daily ordered Drugs that can cause toxicity and require monitoring include Lasix. Monitoring by BMP. Echocardiogram in December 2023 showed systolic and lateral dysfunction. Transthoracic echocardiogram to evaluate left ventricular wall motion and systolic function. Jay wrap to bilateral lower extremities Fluid restriction of 1500 mls daily Cardiac diet ordered. Guideline directed medical therapy of JAY receptor blockers and beta-blockers continue. Imdur continue Blood pressure is not within goal. Home blood pressure medication continued. P.o. labetalol ordered. Trend. COPD?does not appear to be in exacerbation. Home inhalers continued. Advance care planning: Discussed with patient and family advanced directives as well as CODE STATUS. Explained various CODE STATUS: FULL CODE, DNR CCA, DNR CCA with no intubation, and DNR CC- and what each meant. Patient elected to be a full code with CPR and intubation if warranted. Order was placed. Surrogate decision maker are patients 2 sons Thom and Wan. Time spent on discussion 16 minutes. Time spent in the patient's overall evaluation,decision-making process, review of diagnostic data, adjustment of management, discussion with other providers, nursing and ancillary staff involved in patient's care documentation, 75 minutes. Charges/Coding Visit Charges Inpatient E&M: 52236 Init Hosp L3 Multi Select Codes Hospitalists' Procedures Procedures: 61088 Advncd Care Plan 30 Min
--- NOTE | 2024-07-11 21:55 | ECHOL_ITS ---
Reason For Study: CHF Procedure This was a limited 2D transthoracic echocardiogram. Exam performed portable in patient room. Left Ventricle Normal LV size. The left ventricular ejection fraction is 20 %. Septal bounce. There is severe global hypokinesis of the left ventricle. Right Ventricle Normal RV size. Normal systolic function. Atria The left atrium is mildly enlarged. The right atrium is mildly enlarged. Mitral Valve Normal mitral valve. Moderately severe (3+) eccentric mitral valve insufficiency. Tricuspid Valve Normal tricuspid valve. Mild to moderate (1-2+) tricuspid valve insufficiency. Pulmonary artery systolic pressure is 50 mmHg. Aortic Valve Trisinus/trileaflet aortic valve. Mild focal aortic valve calcification. Great Vessels Normal aortic root. The pulmonary artery is normal size. Inferior vena cava collapse with sniff. Pericardium/Pleural Small pericardial effusion. Liver cyst. MMode/2D Measurements & Calculations LVIDd: 5.3 cm IVSd: 1.2 cm LA dimension: 4.7 cm LVIDs: 4.7 cm LVPWd: 1.1 cm RVDd: 4.6 cm FS: 11.9 % LAV(MOD-bp): 77.2 ml LVAd ap4: 31.5 cm2 SV(MOD-sp4): 24.5 ml LAV(MOD-bp) Indexed: 43.1 ml/m2 LVLd ap4: 8.7 cm LAV(MOD-sp2): 79.5 ml EDV(MOD-sp4): 92.5 ml LAV(MOD-sp4): 72.7 ml EDV(sp4-el): 97.6 ml LVAs ap4: 25.7 cm2 LVLs ap4: 8.0 cm ESV(MOD-sp4): 68.0 ml ESV(sp4-el): 70.2 ml EF(MOD-sp4): 26.5 % EF(sp4-el): 28.1 % SV(sp4-el): 27.4 ml LA A4 area: 23.2 cm2 RA A4 area: 21.5 cm2 Doppler Measurements & Calculations MR max julieta: 599.9 cm/sec TR max julieta: 334.4 cm/sec MR max P.0 mmHg TR max P.7 mmHg MR mean julieta: 418.1 cm/sec MR mean P.5 mmHg MR VTI: 209.1 cm ECHO/Echo, Limited Study Interpretation Summary The left ventricular ejection fraction is 20 %. Normal LV size. There is severe global hypokinesis of the left ventricle. Moderately severe (3+) eccentric mitral valve insufficiency. Pulmonary artery systolic pressure is 50 mmHg. Ordering Physician: Deon Diaz Performed By: Sabino Pate RCS
[2024-07-11] MEDS: MELATONIN 3 MG TABLET PO (22:09)
[2024-07-11] MEDS: Labetalol (Prefilled) 20 MG/4 ML Vial 10 MG IV (22:30)
[2024-07-12] VITALS (8 sets, daily range): BP systolic 108–143; BP diastolic 59–100; PULSE 80–95; RESP 16–22; TEMP 36.3–36.9; O2SAT 94–96; BMI 26.3
[2024-07-12] MEDS: guaiFENesin/D-Methorphan TAB.SR.12H 2 TABLET PO ×3 (00:55→20:43)
[2024-07-12] MEDS: Budesonide Respules 0.5 MG/2 ML AMPUL.NEB. INHALATION ×2 (05:16→19:27)
[2024-07-12] MEDS: Ipratropium/Albuterol Sulfate 3 ML AMPUL.NEB INHALATION ×3 (05:16→19:27)
[2024-07-12 07:19] LABS: Absolute Lymphocyte Count 1.65 X10^3/uL (0.83-4.51); Absolute Neutrophil Count 5.1 X10^3/uL (2.0-7.7); Basophil# 0.03 X10^3/uL; Basophil% 0.4 % (0-1); Eosinophil# 0.04 X10^3/uL; Eosinophils% 0.5 % (0-5); Hematocrit 39.3 % (37-47); Hemoglobin 13.5 g/dL (12.0-15.0); Lymphocyte # 1.65 X10^3/ul (0.83-4.51); Lymphocyte % 21.7 % (19-41); Mean Corp Hgb Conc 34.4 g/dL (32-36); Mean Corpuscular Hgb 32.8 pg (27.0-32.0); Mean Corpuscular Volume 95.4 fL (81-99); Mean Platelet Vol. 9.8 fl (6.2-12.0); Monocyte# 0.76 X10^3/uL; NRBC Flagged by Analyzer 0 % (0-5); Neutrophil # 5.09 X10^3/uL (2.7-7.7); Neutrophil % 67.1 % (47-70); Platelet Count 172 K/mm3 (150-450); RBC Distribution Width CV 12.7 % (11.6-14.6); RBC Distribution Width SD 44.5 fl (35.1-43.9); Red Blood Count 4.12 M/mm3 (4.2-5.4); White Blood Count 7.6 K/mm3 (4.4-11.0)
[2024-07-12 07:20] LABS: Anion Gap 9 (5-15); BUN 10 mg/dL (7-18); Calcium,Total 8.9 mg/dL (8.5-10.1); Chloride 94 mmol/L (98-107); Creatinine, Serum 0.77 mg/dL (0.55-1.02); EST Glomerular Filtration Rate 76 mL/min (>60); Est Glom Filt Rate - Afr Amer 91 mL/min (>60); Estimated Creatinine Clearance 50.14 ml/min; Glucose 105 mg/dL (74-106); Potassium 3.6 mmol/L (3.5-5.1); Sodium Level 128 mmol/L (136-145)
--- NOTE | 2024-07-12 09:25 | CASEMGMT ---
GEORGE BREWER Face to Face with patient for initial transition planning/care coordination assessment. GEORGE BREWER introduced self and role at [facility]. Patient lying in bed, alert and oriented, sonWan, at bedside. Patient willing to participate in assessment and is able to answer all questions appropriately. Care providers, pharmacy, and demographics verified. Strata: 2 PCP: [facility] Specialists: Rajendra, social security benefits interviewer; Lee Camargo, counselor at law; Wily, pain Preferred Pharmacy: [facility] Insurance: [place] Prescription Benefit: yes Living Will/HPOA: yes, walter Blas and Thom Aguilar LNOK: walter Living Arrangements: Patient lives alone in a [place] with stair lift from basement Transportation: sons, friend DME/HHC: Patient has shower chair, raised toilet, cane, grab bars, walker, rollator, nebulizer, and pulse ox. Will monitor for home oxygen, prefers [employer]. No previous HHC or SNF Patient wishes to discharge home and is interested in HHC, CM to provide HHC to patient. Son mentioned interest and palliative care, GEORGE BREWER made son aware that a consult could be placed to have palliative talk with patient and family. Patient states he has no further needs or concerns at this time. GEORGE BREWER updated Giuliana VAZQUEZ CM regarding palliative consult request. CM to follow for discharge planning needs that may arise. Disposition Plan: Patient to discharge home with HHC, palliative consult, family support, and follow-up plans in place. Minerva KENNEDY, RN, CM
[2024-07-12] MEDS: Loratadine 10 MG Tablet PO (09:58)
[2024-07-12] MEDS: Montelukast 10 MG Tablet PO (09:59)
[2024-07-12] MEDS: Calcium Carb/Vitamin D 1 TABLET Tablet PO (09:59)
[2024-07-12] MEDS: Multivitamins,Therapeutic Tablet 1 TABLET PO (09:59)
[2024-07-12] MEDS: Pantoprazole Sodium 20 MG Tablet PO (09:59)
[2024-07-12] MEDS: Furosemide 40 MG/4 ML Vial IV ×2 (10:00→17:54)
[2024-07-12] MEDS: Enoxaparin 40 MG/0.4 ML Syringe SC (10:00)
--- NOTE | 2024-07-12 11:18 | CASEMGMT ---
Discharge Planning A list of?HH providers including quality and resource use data and consistent with the patient's preferred geographic region, medical needs, and insurance network was created in [employer] Guide.? This list was provided to the RN OSMAN. Catarina Daniels, Discharge Planning Asst.
[2024-07-12] MEDS: Losartan Potassium 50 MG Tablet PO (11:38)
[2024-07-12] MEDS: Isosorbide Mononitrate 30 MG Tablet PO (11:39)
[2024-07-12] MEDS: Carvedilol 12.5 MG Tablet PO ×2 (11:39→20:43)
--- NOTE | 2024-07-12 12:04 | CASEMGMT ---
Addendum entered by Giuliana Andersen 07/12/24 13:17: Per Rita @ [facility], they are able to accept pt w/ SOC slated for Wednesday or Wednesday. Pt and sons made aware. Original Note: GEORGE BREWER NOTE: Dr Barksdale made aware family requesting Palliative referral. Order received. Referral sent to [facility] Palliative care. Pt and 2 sons, Thom and Wan, who are at bedside made aware. They requested palliative call son, Thom, for follow-up. Palliative notified of same. They were provided w/list of [facility] agencies that was prepared by brayden Elmore assistant store leader. 1st preference is [facility]. Call placed to Rita @ [facility] and referral made. Awaiting response. Robin KENNEDY RN CM
--- NOTE | 2024-07-12 13:54 | PCM.PN.HOSP ---
Subjective Subjective Doing well, swelling is down and breathing slightly better Objective Data Objective Data Vital Signs: Vital Signs Temp Pulse Resp BP Pulse Ox O2 Del Method 97.5 F L 89 16 141/100 H 96 Room Air 07/12/24 09:43 07/12/24 12:35 07/12/24 12:35 07/12/24 11:36 07/12/24 12:35 07/12/24 12:35 Oxygen Delivery Method Room Air Weight: 158 lb 4.67 oz Body Mass Index (BMI) 26.3 Intake & Output: Intake and Output for Last 24 Hours 07/11/24 07/12/24 07/13/24 03:59 03:59 03:59 Intake Total 180 / 180 120 / 120 Balance 180 / 180 120 / 120 Lab / Micro Data 07/12/24 06:07 07/12/24 06:07 Labs: Laboratory Results - last 24 hr 07/11/24 15:39: WBC 7.5, RBC 4.29, Hgb 14.1, Hct 41.7, MCV 97.2, MCH 32.9 H, MCHC 33.8, RDW Std Deviation 46.2 H, RDW Coeff of Isidra 13.0, Plt Count 194, MPV 9.7, Immature Gran % (Auto) 0.400, Neut % (Auto) 70.7 H, Lymph % (Auto) 19.7, [place] % (Auto) 8.6, Eos % (Auto) 0.3, Baso % (Auto) 0.3, Absolute Neuts (auto) 5.3, Absolute Lymphs (auto) 1.47, Nucleated RBC % 0, Sodium 126 L, Potassium 4.7, Chloride 92 L, Carbon Dioxide 24.0, Anion Gap 11, BUN 10, Creatinine 0.93, Est GFR (MDRD) Af Amer 73, Est GFR (MDRD) Non-Af 61, BUN/Creatinine Ratio 10.7, Glucose 141 H, Calcium 9.3, Troponin I High Sens 62 H, B-Natriuretic Peptide 4276.8 H 07/11/24 17:48: Troponin I High Sens 72 H 07/12/24 06:07: WBC 7.6, RBC 4.12 L, Hgb 13.5, Hct 39.3, MCV 95.4, MCH 32.8 H, MCHC 34.4, RDW Std Deviation 44.5 H, RDW Coeff of Isidra 12.7, Plt Count 172, MPV 9.8, Immature Gran % (Auto) 0.300, Neut % (Auto) 67.1, Lymph % (Auto) 21.7, [place] % (Auto) 10.0, Eos % (Auto) 0.5, Baso % (Auto) 0.4, Absolute Neuts (auto) 5.1, Absolute Lymphs (auto) 1.65, Nucleated RBC % 0, Sodium 128 L, Potassium 3.6, Chloride 94 L, Carbon Dioxide 26.0, Anion Gap 9, BUN 10, Creatinine 0.77, Estim Creat Clear Calc 50.14, Est GFR (MDRD) Af Amer 91, Est GFR (MDRD) Non-Af 76, BUN/Creatinine Ratio 13.0, Glucose 105, Calcium 8.9 Micro: Microbiology 07/11/24 16:02 Mucosa - Nasopharyngeal SARS-CoV-2, Influenza & RSV (PCR) - Final ABG Data ABG results: ABG 07/11/24 16:06 Specimen Type GABRIELLE Sample Site Not entered VBG pH 7.38 VBG pO2 31 VBG HCO3 22 VBG Total CO2 23 VBG O2 Sat (Calc) 59 VBG Base Excess -3 L POC Mix VBG pCO2 Pt Tmp 37.2 L O2 Delivery Device Not entered Radiography Diagnostic Testing: Radiology Impression Chest X-Ray 07/11/24 16:13 IMPRESSION: Mild subsegmental atelectasis or infiltrates of the lung bases with very small effusions. Electronically Signed: Ramirez Black MD at 16:27 EDT , Physical Exam Narrative General: Alert, Oriented x3, Cooperative, No apparent distress HEENT: Atraumatic, PERRLA, EOMI, Normocephalic Oral: Moist Mucosa Neck: Supple, No JVD Lungs: Diminished, Normal air movement, No rhonchi, No wheeze, No rales Cardiovascular: Regular rate, Regular Rhythm, Normal S1, Normal S2, No murmurs Abdomen: Soft, Non Tender, Non-Distended, No Hepato-splenomegaly Extremities: Edema, Capillary Refill Less than 3 Seconds Skin: No rashes, No breakdown Musculoskeletal: No Tenderness to Palpation of Joints or Extremities Neurological: No focal neurological deficits, Motor Exam 5/5 strength throughout, Sensory exam intact to light touch and pain Psych/Mental Status: Normal Affect, Appropriate Assessment & Plan Assessment/Plan (1) Chest pressure: (2) Atherosclerotic heart disease of [place] coronary artery without angina pectoris: QUALIFIERS: [place] vs. transplanted heart: [place] heart Qualified Code(s): I25.10 - Atherosclerotic heart disease of [place] coronary artery without angina pectoris PLAN: Plan 1. Acute on chronic systolic and diastolic CHF/essential HTN/HLD ? Continue with Lasix IV twice daily ? Echo on 12/06/2023 with an EF of 35% stage II diastolic dysfunction with an RVSP of 41 mmHg ? Continue with her Coreg, isosorbide, losartan, will monitor blood pressures and make adjustments as necessary ? Continue with Lipitor 2. COPD ? Not in exacerbation ? Continue with her inhalers ? Will monitor and make adjustments as necessary 3. GERD ? Stable ? Continue with PPI DVT: Lovenox Charges/Coding Visit Charges Inpatient E&M: 74512 Subs Hosp L2
--- NOTE | 2024-07-12 18:39 | NURSING ---
Reviewed charting with Jayro Judge RN
[2024-07-12] MEDS: Atorvastatin Calcium 40 MG Tablet PO (20:43)
[2024-07-13 03:00] VITALS: BP 154/80; PULSE 91; RESP 18; TEMP 36.8; O2SAT 95
[2024-07-13 06:00] VITALS: BMI 25.7
[2024-07-13 06:05] LABS: Absolute Lymphocyte Count 0.86 X10^3/uL (0.83-4.51); Absolute Neutrophil Count 4.3 X10^3/uL (2.0-7.7); Basophil# 0.03 X10^3/uL; Basophil% 0.5 % (0-1); Eosinophil# 0.09 X10^3/uL; Eosinophils% 1.5 % (0-5); Hematocrit 38.8 % (37-47); Hemoglobin 13.2 g/dL (12.0-15.0); Lymphocyte # 0.86 X10^3/ul (0.83-4.51); Lymphocyte % 14.4 % (19-41); Mean Corpuscular Hgb 32.6 pg (27.0-32.0); Mean Corpuscular Volume 95.8 fL (81-99); Mean Platelet Vol. 9.6 fl (6.2-12.0); Monocyte# 0.64 X10^3/uL; Monocyte% 10.7 % (0-10); NRBC Flagged by Analyzer 0 % (0-5); Neutrophil # 4.32 X10^3/uL (2.7-7.7); Neutrophil % 72.4 % (47-70); Platelet Count 145 K/mm3 (150-450); RBC Distribution Width CV 12.6 % (11.6-14.6); RBC Distribution Width SD 44.4 fl (35.1-43.9); Red Blood Count 4.05 M/mm3 (4.2-5.4)
[2024-07-13 06:24] LABS: Anion Gap 8 (5-15); BUN 9 mg/dL (7-18); BUN/Creat Ratio 12.2 RATIO (10-20); Calcium,Total 8.8 mg/dL (8.5-10.1); Chloride 92 mmol/L (98-107); Creatinine, Serum 0.74 mg/dL (0.55-1.02); EST Glomerular Filtration Rate 79 mL/min (>60); Est Glom Filt Rate - Afr Amer 96 mL/min (>60); Estimated Creatinine Clearance 50.14 ml/min; Glucose 97 mg/dL (74-106); Potassium 2.9 mmol/L (3.5-5.1); Sodium Level 130 mmol/L (136-145)
[2024-07-13 07:10] VITALS: PULSE 80; RESP 18; O2SAT 98
[2024-07-13] MEDS: Ipratropium/Albuterol Sulfate 3 ML AMPUL.NEB INHALATION (07:10)
[2024-07-13] MEDS: Budesonide Respules 0.5 MG/2 ML AMPUL.NEB. INHALATION (07:10)
[2024-07-13 08:34] LABS: Magnesium 1.1 mg/dL (1.6-2.6); Phosphorus 3.6 mg/dL (2.5-4.9)
[2024-07-13 09:10] VITALS: BP 151/85; PULSE 100; RESP 16; TEMP 37.2; O2SAT 94
[2024-07-13] MEDS: Loratadine 10 MG Tablet PO (09:12)
[2024-07-13] MEDS: Multivitamins,Therapeutic Tablet 1 TABLET PO (09:12)
[2024-07-13] MEDS: Losartan Potassium 50 MG Tablet PO (09:12)
[2024-07-13] MEDS: Carvedilol 12.5 MG Tablet PO (09:12)
[2024-07-13] MEDS: Enoxaparin 40 MG/0.4 ML Syringe SC (09:13)
[2024-07-13] MEDS: Furosemide 40 MG/4 ML Vial IV (09:13)
[2024-07-13] MEDS: Isosorbide Mononitrate 30 MG Tablet PO (09:13)
[2024-07-13] MEDS: guaiFENesin/D-Methorphan TAB.SR.12H 2 TABLET PO (09:13)
[2024-07-13] MEDS: Calcium Carb/Vitamin D 1 TABLET Tablet PO (09:14)
[2024-07-13] MEDS: Pantoprazole Sodium 20 MG Tablet PO (09:14)
[2024-07-13] MEDS: Montelukast 10 MG Tablet PO (09:14)
[2024-07-13] MEDS: FLU VACCINE **HIGH DOSE** TV 24-25 180 MCG/0.5 ML SYRINGE IM (10:19)
[2024-07-13] MEDS: Magnesium Sulfate 4gm/100mL 4 GM/100 ML IV.SOLN. IV (11:53)
--- NOTE | 2024-07-13 15:04 | CHAPLAIN ---
Type of Pastoral Visit _x__ Initial Visit ___ Follow-up Visit ___ On-call Visit ___ General Patient Visit ___ Spiritual Assessment ___ Family Conference ___ Bereavement ___ Rapid Response ___ Code Blue ___ Other (describe below) Pastoral Care Referral From _x__ Patient ___ Family ___ Nurse ___ Physician ___ Rn Ortho ___ Ear Mold Laboratory Technician ___ Other (describe below) Sacrament/Intervention _x__ Active listening ___ Anointing ___ Sikhism ___ Bereavement ___ Communion ___ Mary exploration ___ ___ Life review ___ Prayer ___ Reconciliation ___ Sacrament of Sick ___ Supportive presence ___ Wedding ___ Other (describe below) Pastoral Comments patient indicates that she is feeling better and has no concerns; pt believes that she will be discharged yet today; son is with pt in the room; casual conversation and supportive presence given
[2024-07-13] MEDS: Potassium Chloride Oral Tablet 20 MEQ 60 MEQ PO (15:36)
[2024-07-13 15:58] VITALS: BP 119/105; PULSE 98; RESP 18; TEMP 36.4; O2SAT 94
--- NOTE | 2024-07-13 16:23 | DCINST_ITS ---
Discharge Instructions Diet Discharge Diet: Low fat / Low cholesterol and 6 Cup Fluid Restriction Activity Discharge Activity: Return to Normal Activity Dressing / Incision Call your doctor if you observe: Fever of 101 or Higher, Shortness of breath, Dizziness, Fainting spells, Swelling in the ankles, Chest pain and Increased palpitations (irregular heartbeat) Follow Up Care Test Results: Test results from this visit will be discussed in further detail at your follow- up appointment, if applicable. Discharge Plan Admission Admit Date/Time: 07/11/24 18:43 Attending Provider: Vipin Barksdale Primary Care Provider: Alberto Herr Consulting Providers: Deon Diaz Instructions Patient Instructions: Heart Failure: Tracking Your Weight, Heart Failure Make Changes Diet, ED CHF Left Side Discharge Orders/Prescriptions Prescriptions: New furosemide [Lasix] 40 mg tablet 40 mg PO DAILY Qty: 30 0RF potassium chloride 20 mEq tablet extended release 20 meq PO DAILY Qty: 30 0RF Continued pantoprazole 20 mg tablet,delayed release (DR/EC) 20 mg PO DAILY Symbicort 160-4.5 mcg/actuation HFA aerosol inhaler 2 puff INHALATION BID albuterol sulfate 2.5 mg /3 mL (0.083 %) solution for nebulization 2.5 mg INHALATION Q4H PRN (Reason: SOB) hydrocodone-acetaminophen 5-325 mg tablet 1 tab PO TID PRN (Reason: pain) Patient Comments: TAKE 1/2 TO 1 TAB BY MOUTH THREE TIMES A DAY NEEDED FOR PAIN Prolia 60 mg/mL syringe 60 mg subcut [id number] Patient Comments: next dose 04/2024 Rx Instructions: Will start next Wednesday aspirin 81 MG tablet 81 mg PO DAILY@0800 montelukast 10 MG tablet 10 mg PO DAILY loratadine 10 MG tablet 10 mg PO DAILY multivitamin with folic acid 1 TABLET tablet 1 tab PO DAILY calcium carbonate-vit D3-min [Caltrate 600-D Plus Minerals] 2 tab PO DAILY cholecalciferol (vitamin D3) 10 mcg (400 unit) tablet,chewable 10 mcg PO DAILY Combivent Respimat 20-100 mcg/actuation mist 1 puff inhalation Q4H desoximetasone 0.25 % cream 1 applic topical DAILY PRN (Reason: skin irritation) atorvastatin 40 mg tablet 40 mg PO DAILY carvedilol 12.5 mg tablet 12.5 mg PO BID Qty: 180 4RF losartan 50 mg tablet 50 mg PO DAILY Qty: 90 3RF isosorbide mononitrate 30 mg tablet extended release 24 hr 30 mg PO DAILY Qty: 90 3RF nitroglycerin 0.4 mg tablet, sublingual See Rx Instructions .ROUTE .COMPLEX Qty: 25 3RF Dose Instruction: 0.4 MG SUBLINGUAL EVERY 5-15M NEEDED FOR CHEST PAIN Rx Instructions: 0.4 MG SUBLINGUAL EVERY 5-15M NEEDED FOR CHEST PAIN Referrals / Follow Up: Alberto Herr MD [Primary Care Provider] - Within 1 Week Disposition Disposition (needs filled in before D/C Order can be placed): Home Health Service
--- NOTE | 2024-07-13 16:31 | DS.PCM_ITS ---
Providers Date of Admission: 07/11/24 Primary Care Physician: Dr. Alberto Herr MD Reason For Visit: ACUTE ON CHRONIC HEART FAILURE Diagnosis Discharge Diagnosis (1) Chest pressure: Status: Acute Code(s): R07.89 - Other chest pain (2) Atherosclerotic heart disease of [place] coronary artery without angina pectoris: Status: Chronic Code(s): I25.10 - Atherosclerotic heart disease of [place] coronary artery without angina pectoris Qualifiers: [place] vs. transplanted heart: [place] heart Qualified Code(s): I25.10 - Atherosclerotic heart disease of [place] coronary artery without angina pectoris Medications at Discharge Home Medications aspirin 81 mg tablet,delayed release 81 mg PO DAILY@0800 09/09/18 loratadine 10 mg tablet 10 mg PO DAILY 09/09/18 montelukast 10 mg tablet 10 mg PO DAILY 09/09/18 multivitamin with folic acid 400 mcg tablet 1 tab PO DAILY 09/09/18 budesonide-formoterol HFA 160 mcg-4.5 mcg/actuation aerosol inhaler (Symbicort) 2 puff inhalation BID 08/08/19 pantoprazole 20 mg tablet,delayed release 20 mg PO DAILY 08/08/19 albuterol sulfate 2.5 mg/3 mL (0.083 %) solution for nebulization 2.5 mg inhalation Q4H PRN SOB 03/04/20 hydrocodone-acetaminophen 5-325mg 5mg-325mg 1 tab PO TID PRN pain 06/19/22 denosumab 60 mg/mL subcutaneous syringe (Prolia) 60 mg subcut [id number] 10/25/23 carvedilol 12.5 mg tablet 12.5 mg PO BID #180 tabs 12/24/23 losartan 50 mg tablet 50 mg PO DAILY #90 tabs 03/13/24 isosorbide mononitrate 30 mg tablet,extended release 24 hr 30 mg PO DAILY #90 tabs 06/22/24 nitroglycerin 0.4 mg sublingual tablet See Rx Instructions .Route .COMPLEX #25 tabs 06/22/24 atorvastatin 40 mg tablet 40 mg PO DAILY 07/11/24 calcium carbonate-vit D3-min 2 tab PO DAILY 07/11/24 cholecalciferol (vitamin D3) 10 mcg (400 unit) chewable tablet 10 mcg PO DAILY 07/11/24 desoximetasone 0.25 % topical cream 1 applic topical DAILY PRN skin irritation 07/11/24 ipratropium 20 mcg-albuterol 100 mcg/actuation mist for inhalation (Combivent Respimat) 1 puff inhalation Q4H 07/11/24 furosemide 40 mg tablet (Lasix) 40 mg PO DAILY #30 tabs 07/13/24 potassium chloride 20 mEq tablet,extended release 20 meq PO DAILY #30 tabs 07/13/24 Hospital Course Operations None Procedures 2-D Echocardiogram Summary of Care Provided Minutes Spent on Discharge: 35 Hospital Course: Per HPI: JESUS AYOUB, is a 84 F with a significant history of COPD; combined systolic and diastolic dysfunction; and left lung lobectomy who presents with 1 week history of progressively worsening shortness of breath. Associated with her symptoms is worsening of bilateral lower extremity edema. Further she has orthopnea. She denies paroxysmal nocturnal dyspnea. She does not know that she has had any weight changes. Hospital Course: 1. 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 Repeat echo demonstrated a reduction in her EF from 35% in December down to 20% today with pulmonary artery systolic pressure of 50 mmHg. She also has a history of stage II diastolic dysfunction on previous imaging. She did have improvement in her breathing with diuresis which she is not on at home. Today she was ambulated and did not require any oxygen with ambulation as she was maintaining 92% on room air. I discussed with her and her son the plan for discharge today they both expressed understanding the risk benefits going home and would like to go home today. She will be discharged with a prescription for Lasix as well as potassium as her potassium today was low as was her magnesium both of which were replaced. She is already on mostly goal-directed therapy at this time for her systolic and diastolic CHF though would recommend follow-up with cardiology as well for initiation of either Entresto or Jardiance or both. She will have home health care follow-up on either Wednesday or Wednesday to assist. I recommend she follow-up with her PCP in 3 to 5 days as well. 2. COPD, GERD are chronic medical conditions which complicate her care. Her home medications were continued where appropriate Physical Exam Narrative General: Alert, Oriented x3, Cooperative, No apparent distress HEENT: Atraumatic, PERRLA, EOMI, Normocephalic Oral: Moist Mucosa Neck: Supple, No JVD Lungs: Diminished, Normal air movement, No rhonchi, No wheeze, No rales Cardiovascular: Regular rate, Regular Rhythm, Normal S1, Normal S2, No murmurs Abdomen: Soft, Non Tender, Non-Distended, No Hepato-splenomegaly Extremities: Edema, Capillary Refill Less than 3 Seconds Skin: No rashes, No breakdown Musculoskeletal: No Tenderness to Palpation of Joints or Extremities Neurological: No focal neurological deficits, Motor Exam 5/5 strength throughout, Sensory exam intact to light touch and pain Psych/Mental Status: Normal Affect, Appropriate Weight / BMI Weight Weight: 154 lb 5.177 oz Body Mass Index (BMI) 25.7 ABG / Lab / Microbiology Data 07/13/24 05:24 07/13/24 05:24 Laboratory: Laboratory Results - last 24 hr 07/13/24 05:24: WBC 6.0, RBC 4.05 L, Hgb 13.2, Hct 38.8, MCV 95.8, MCH 32.6 H, MCHC 34.0, RDW Std Deviation 44.4 H, RDW Coeff of Isidra 12.6, Plt Count 145 L, MPV 9.6, Immature Gran % (Auto) 0.500, Neut % (Auto) 72.4 H, Lymph % (Auto) 14.4 L, [place] % (Auto) 10.7 H, Eos % (Auto) 1.5, Baso % (Auto) 0.5, Absolute Neuts (auto) 4.3, Absolute Lymphs (auto) 0.86, Nucleated RBC % 0, Sodium 130 L, Potassium 2.9 L, Chloride 92 L, Carbon Dioxide 29.0, Anion Gap 8, BUN 9, Creatinine 0.74, Estim Creat Clear Calc 50.14, Est GFR (MDRD) Af Amer 96, Est GFR (MDRD) Non-Af 79, BUN/Creatinine Ratio 12.2, Glucose 97, Calcium 8.8, Phosphorus 3.6, M agnesium 1.1 L Microbiology: Microbiology 07/11/24 16:02 Mucosa - Nasopharyngeal SARS-CoV-2, Influenza & RSV (PCR) - Final D/C Instructions Discharge Diet: Low fat / Low cholesterol and 6 Cup Fluid Restriction Call your doctor if you observe: Fever of 101 or Higher, Shortness of breath, Dizziness, Fainting spells, Swelling in the ankles, Chest pain and Increased palpitations (irregular heartbeat) Meaningful Use Info Meaningful Use Meaningful Use Diagnoses (Choose all that apply): None applicable Ischemic Stroke Statin Dosing Therapy Reference: STATIN DOSE THERAPY REFERENCE: * Patients > 75 years receive moderate or high dose statin therapy. * Patients 75 years or YOUNGER should receive HIGH intensity statin dose unless contraindicated. You will be required to document reason for non-treatment if statin daily dose does not meet guidelines. HIGH DOSE STATIN THERAPY DAILY Atorvastatin > than or = to 40 mg Rosuvastatin > than or = to 20 mg Amlodipine + Atorvastatin > than or = to 2.5/40 mg Ezetimibe + Simvastatin 10/80 mg Simvastatin 80mg Discharge Plan Admission Admit Date/Time: 07/11/24 18:43 Attending Provider: Vipin Barksdale Primary Care Provider: Alberto Herr Consulting Providers: Deon Diaz Instructions Patient Instructions: Heart Failure: Tracking Your Weight, Heart Failure Make Changes Diet, ED CHF Left Side Discharge Orders/Prescriptions Prescriptions: New furosemide [Lasix] 40 mg tablet 40 mg PO DAILY Qty: 30 0RF potassium chloride 20 mEq tablet extended release 20 meq PO DAILY Qty: 30 0RF Continued pantoprazole 20 mg tablet,delayed release (DR/EC) 20 mg PO DAILY Symbicort 160-4.5 mcg/actuation HFA aerosol inhaler 2 puff INHALATION BID albuterol sulfate 2.5 mg /3 mL (0.083 %) solution for nebulization 2.5 mg INHALATION Q4H PRN (Reason: SOB) hydrocodone-acetaminophen 5-325 mg tablet 1 tab PO TID PRN (Reason: pain) Patient Comments: TAKE 1/2 TO 1 TAB BY MOUTH THREE TIMES A DAY NEEDED FOR PAIN Prolia 60 mg/mL syringe 60 mg subcut [id number] Patient Comments: next dose 04/2024 Rx Instructions: Will start next Wednesday aspirin 81 MG tablet 81 mg PO DAILY@0800 montelukast 10 MG tablet 10 mg PO DAILY loratadine 10 MG tablet 10 mg PO DAILY multivitamin with folic acid 1 TABLET tablet 1 tab PO DAILY calcium carbonate-vit D3-min [Caltrate 600-D Plus Minerals] 2 tab PO DAILY cholecalciferol (vitamin D3) 10 mcg (400 unit) tablet,chewable 10 mcg PO DAILY Combivent Respimat 20-100 mcg/actuation mist 1 puff inhalation Q4H desoximetasone 0.25 % cream 1 applic topical DAILY PRN (Reason: skin irritation) atorvastatin 40 mg tablet 40 mg PO DAILY carvedilol 12.5 mg tablet 12.5 mg PO BID Qty: 180 4RF losartan 50 mg tablet 50 mg PO DAILY Qty: 90 3RF isosorbide mononitrate 30 mg tablet extended release 24 hr 30 mg PO DAILY Qty: 90 3RF nitroglycerin 0.4 mg tablet, sublingual See Rx Instructions .ROUTE .COMPLEX Qty: 25 3RF Dose Instruction: 0.4 MG SUBLINGUAL EVERY 5-15M NEEDED FOR CHEST PAIN Rx Instructions: 0.4 MG SUBLINGUAL EVERY 5-15M NEEDED FOR CHEST PAIN Referrals / Follow Up: Alberto Herr MD [Primary Care Provider] - Within 1 Week Disposition Disposition (needs filled in before D/C Order can be placed): Home Health Service Charges/Coding Visit Charges Inpatient E&M: 07701 Disch Hosp >30min
[2024-07-13 17:45] VITALS: BP 151/96; PULSE 98; RESP 16; TEMP 36.6; O2SAT 96
== END 2024-07-13 17:56 | disposition home health service (06) | DRG 291 ==
LOC: ED 19:13 → PCU 19:37
PROVIDERS: Admitting Provider Hospitalist; Emergency Provider Surgery; PCP Internal Medicine; Visit Provider Family Medicine
DX: I11.0 Hypertensive heart disease with heart failure (principal); I50.43 Acute on chronic combined systolic (congestive) and diastolic (congestive) heart failure; I27.20 Pulmonary hypertension, unspecified; J44.9 Chronic obstructive pulmonary disease, unspecified; I25.10 Atherosclerotic heart disease of native coronary artery without angina pectoris; E78.00 Pure hypercholesterolemia, unspecified; K21.9 Gastro-esophageal reflux disease without esophagitis; E83.42 Hypomagnesemia; E87.6 Hypokalemia; Z90.2 Acquired absence of lung [part of]; Z79.51 Long term (current) use of inhaled steroids; Z79.899 Other long term (current) drug therapy; Z87.891 Personal history of nicotine dependence; Z23 Encounter for immunization
CPT/HCPCS: 36415; 71046; 80048; 82803; 83735; 83880; 84100; 84484; 85025; 87631; 90662; 93005; 93308; 94640; 94668; 99284; Q9957; A4216; J1940

== ENCOUNTER 2024-11-29 10:56 | Inpatient (IN) | payer MEDICARE, SELFPAY ==
[2024-11-29] VITALS (28 sets, daily range): BP systolic 136–182; BP diastolic 72–106; PULSE 23–116; RESP 14–120; TEMP 36.1–36.6; O2SAT 93–100; BMI 23.7; BMI 22.8
--- NOTE | 2024-11-29 11:09 | EKG12_ITS ---
Test Reason : CP Blood Pressure : */* mmHG Vent. Rate : 97 BPM Atrial Rate : 97 BPM P-R Int : 194 ms QRS Dur : 170 ms QT Int : 416 ms P-R-T Axes : 62 -41 94 degrees QTcB Int : 528 ms Normal sinus rhythm Possible Left atrial enlargement Left axis deviation Left bundle branch block Abnormal ECG Confirmed by Garcia Bautista ([id number]), editor book XUAN CUNNINGHAM ([id number]) on 11/30/2024 9:32:25 AM Referred By: TA/TB Confirmed By: Garcia Bautista
[2024-11-29 11:22] LABS: Absolute Lymphocyte Count 2.33 X10^3/uL (0.83-4.51); Absolute Neutrophil Count 5.8 X10^3/uL (2.0-7.7); Basophil# 0.02 X10^3/uL; Basophil% 0.2 % (0-1); Eosinophil# 0.01 X10^3/uL; Eosinophils% 0.1 % (0-5); Hematocrit 41.3 % (37-47); Hemoglobin 14.4 g/dL (12.0-15.0); Lymphocyte # 2.33 X10^3/ul (0.83-4.51); Lymphocyte % 26.1 % (19-41); Mean Corp Hgb Conc 34.9 g/dL (32-36); Mean Corpuscular Hgb 34.6 pg (27.0-32.0); Mean Corpuscular Volume 99.3 fL (81-99); Mean Platelet Vol. 9.2 fl (6.2-12.0); Monocyte% 8.9 % (0-10); NRBC Flagged by Analyzer 0 % (0-5); Neutrophil # 5.75 X10^3/uL (2.7-7.7); Neutrophil % 64.4 % (47-70); Platelet Count 165 K/mm3 (150-450); RBC Distribution Width CV 12.1 % (11.6-14.6); RBC Distribution Width SD 44.2 fl (35.1-43.9); Red Blood Count 4.16 M/mm3 (4.2-5.4); White Blood Count 8.9 K/mm3 (4.4-11.0)
--- NOTE | 2024-11-29 11:26 | ED.VIS.CHEST ---
HPI History of Present Illness Chief Complaint: Shortness of Breath Narrative Narrative: Patient is a 84-year-old female past medical history CHF, hypertension, CAD, COPD, GERD who presents to the [facility] part with chief complaint of shortness of breath. Patient states that for the past 8 days she has had worsening shortness of breath especially when she tries to walk around. Patient denies recent sick contacts. States that she is coughing up more than she normally does. [facility] Medical History Osteoarthritis Osteoporosis Non-smoker Irregular heart beat Hypertension Congestive heart failure (CHF) Alcohol abuse Use of cane as ambulatory aid Mitral regurgitation CAD (coronary artery disease) Wears hearing aid Wears glasses Alcohol use Arthritis High cholesterol Excessive bleeding History of recent fall Back pain Dietary restriction Gastric reflux Former smoker Emphysema, unspecified COPD (chronic obstructive pulmonary disease) Asthma Shortness of breath on exertion Leg cramps History of pain when walking History of echocardiogram History of stress test Cardiology follow-up encounter HLD (hyperlipidemia) Valvular heart disease Chest pressure Hepatic cyst 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 LBBB (left bundle branch block) Renovascular hypertension Essential hypertension GERD (gastroesophageal reflux disease) Nonischemic cardiomyopathy Dyslipidemia Asthma Chest pain Home Medications ?Medication ?Instructions ?Recorded ?Last Taken ?Type aspirin 81 mg tablet,delayed 81 mg PO DAILY@0800 09/09/18 01/03/24 History release loratadine 10 mg tablet 10 mg PO DAILY allergies 09/09/18 Unknown History montelukast 10 mg tablet 10 mg PO DAILY allergies 09/09/18 Unknown History multivitamin with folic acid 400 1 tab PO DAILY vitamin 09/09/18 Unknown History mcg tablet pantoprazole 20 mg tablet,delayed 20 mg PO DAILY reflux 08/08/19 05/18/22 History release hydrocodone-acetaminophen 5-325mg 1 tab PO TID PRN pain 06/19/22 Unknown History 5mg-325mg carvedilol 12.5 mg tablet 12.5 mg PO BID blood pressure #180 12/24/23 01/03/24 Rx tabs atorvastatin 40 mg tablet 40 mg PO DAILY cholesterol 07/11/24 Unknown History calcium carbonate-vit D3-min 2 tab PO DAILY vitamin 07/11/24 Unknown History cholecalciferol (vitamin D3) 10 10 mcg PO DAILY vitamin 07/11/24 Unknown History mcg (400 unit) chewable tablet desoximetasone 0.25 % topical cream 1 applic topical DAILY PRN skin 07/11/24 Unknown History irritation furosemide 40 mg tablet (Lasix) 40 mg PO DAILY #90 tabs 08/08/24 Unknown Rx potassium chloride 20 mEq 20 meq PO DAILY #90 tabs 08/08/24 Unknown Rx tablet,extended release albuterol sulfate 90 mcg/actuation inhalation Q4 PRN wheezing 11/16/24 Unknown History aerosol inhaler dapagliflozin propanediol 10 mg 10 mg PO QDAY #90 tabs 11/16/24 Unknown Rx tablet (Farxiga) fluticasone fur. 100 mcg-umeclid 1 ea inhalation QDAY 11/16/24 Unknown History 62.5 mcg-vilant 25 mcg inhalat.powder (Trelegy Ellipta) isosorbide mononitrate 60 mg 60 mg PO QDAY #90 tabs 11/16/24 Unknown Rx tablet,extended release 24 hr sacubitril 49 mg-valsartan 51 mg 1 tab PO BID #180 tabs 11/16/24 Unknown Rx tablet (Entresto) nitroglycerin 0.4 mg sublingual See Rx Instructions .Route 11/28/24 Unknown Rx tablet .COMPLEX chest pain #25 tabs Allergy/AdvReac Type Severity Reaction Status Date / Time adhesive tape AdvReac Itching Verified 11/29/24 11:01 latex AdvReac Rash Verified 11/29/24 11:01 nabumetone (From Relafen) AdvReac Nausea Verified 11/29/24 11:01 ramipril (From Altace) AdvReac Other Verified 11/29/24 11:01 sulfamethoxazole (From AdvReac Nausea Verified 11/29/24 11:01 Bactrim) trimethoprim (From Bactrim) AdvReac Nausea Verified 11/29/24 11:01 Surgical History History of cardiac catheterization Hx of bilateral cataract extraction Hx of colonoscopy History of breast biopsy History of tonsillectomy Social History Smoking Status: Former smoker how long ago did patient quit smokin alcohol intake: current alcohol intake frequency: a few times a week Alcohol type: wine substance use type: does not use caffeine: Yes Type: coffee Number of servings: 2 ROS ROS ED ROS Narrative Constitutional: Denies fevers, chills, headaches, lightness, dizziness Cardiovascular: Denies chest pain or palpitations Respiratory: Complains of shortness of breath and cough as noted above Abdomen: Denies abdominal pain nausea vomit diarrhea : Denies any urinary symptoms Neurological: Denies numbness, weakness, tingling Musculoskeletal: Denies back pain Skin: Denies rashes or lesions EXAM Physical Exam Narrative Exam Narrative: General: Patient lying in bed rest comfortably did not appear to be in acute distress Head: Atraumatic, normocephalic Eyes: PERRL bilaterally, EOMI bilateral, no conjunctival injection noted Neck: Soft, supple, trachea midline Cardiovascular: Regular in rhythm no murmurs gallops rubs noted Respiratory: Diffuse end expiratory wheezing noted bilaterally as well as coarse breath sounds noted in the left lower lobe Abdomen: Soft, nondistended, nontender to palpation Extremities: +4/5 strength noted in the bilateral upper and lower extremities, radial pulses +2/4 in the bilateral extremities Neurological: Patient following commands knew that she was at [facility] year is 2024 Skin: Warm, dry, intact no rashes or lesions noted Const Vital Signs: 11/29/24 10:57 11/29/24 11:03 11/29/24 11:56 Temperature 97.9 F Temperature Source Oral Pulse Rate 98 103 H Respiratory Rate 18 Respiratory Effort Short of Breath Respiratory Pattern Blood Pressure 157/89 H 166/99 H Blood Pressure Mean 111 121 Pulse Ox 95 94 Oxygen Delivery Method Room Air Room Air Fraction of Inspired Oxygen (FIO2) 11/29/24 12:15 11/29/24 12:15 11/29/24 12:40 Temperature Temperature Source Pulse Rate 112 H Respiratory Rate 30 H Respiratory Effort Non-Labored Respiratory Pattern Blood Pressure Blood Pressure Mean Pulse Ox Oxygen Delivery Method Room Air Room Air Fraction of Inspired Oxygen (FIO2) 11/29/24 12:45 11/29/24 12:48 11/29/24 12:55 Temperature 97.9 F Temperature Source Oral Pulse Rate 23 L 99 Respiratory Rate 120 H 24 H Respiratory Effort Respiratory Pattern Tachypnea Blood Pressure 162/106 H 146/100 H Blood Pressure Mean 124 115 Pulse Ox 99 100 Oxygen Delivery Method Bi-pap Fraction of Inspired Oxygen (FIO2) 40 MDM MDM MDM Narrative Medical decision making narrative: Patient is a 84-year-old female who presented to the emergency department with a chief complaint of dyspnea on exertion as well as cough. On the differential diagnose includes but not limited to CHF exacerbation, pneumonia, ACS, upper respiratory effect secondary viral etiology. Once workup is obtained reviewed she will be reevaluated. Patient be given 3 DuoNebs as well as Solu-Medrol. Patient CBC reviewed showed no evidence leukocytosis white blood count normal 8.9, hemoglobin is 14.4, plate count normal at 165. Patient's sodium was low at 128 however she is chronically hyponatremic based on previous blood draws, potassium normal 4.3, creatinine normal at 0.7. Patient's troponin was noted be 28, EKG reviewed showed evidence of left bundle branch block with rate of 97 bpm no Sgarbossa criteria were met. Patient's proBNP elevated 7986. Patient be given 40 mg of IV Lasix. Patient echocardiogram from 07/11/2024 showed a ejection fraction of 20% with severe global hypokinesis of the left ventricle. Patient had worsening respiratory status therefore she was placed on BiPAP. Will discuss case with hospitalist for admission Discussed case with hospitalist Dr. Vela who accept the patient for admission. Patient notified as well as family bedside. All question concerns answered at bedside. Lab Data Labs: Laboratory Results - last 24 hr 11/29/24 11:12 WBC 8.9 RBC 4.16 L Hgb 14.4 Hct 41.3 MCV 99.3 H MCH 34.6 H MCHC 34.9 RDW Std Deviation 44.2 H RDW Coeff of [place]id[place] 12.1 Plt Count 165 MPV 9.2 Immature Gran % (Auto) 0.300 Neut % (Auto) 64.4 Lymph % (Auto) 26.1 [place] % (Auto) 8.9 Eos % (Auto) 0.1 Baso % (Auto) 0.2 Absolute Neuts (auto) 5.8 Absolute Lymphs (auto) 2.33 Nucleated RBC % 0 Sodium 128 L Potassium 4.3 Chloride Direct 90 L Carbon Dioxide 23.2 Anion Gap 14 BUN 16 Creatinine 0.7 Estim Creat Clear Calc 45.42 Est GFR (MDRD) Non-Af 82 BUN/Creatinine Ratio 22.0 H Glucose 109 H Calcium 9.7 Troponin T High Sens 28 H NT pro BNP II 7986 H Discharge Plan Triage Chief Complaint: Shortness of Breath Other Complaint: Chest Pain ED Provider: Jessee Zapata Dx/Rx/DC Orders Clinical Impression: Acute hypoxic respiratory failure, CHF exacerbation Prescriptions: No Action pantoprazole 20 mg tablet,delayed release (DR/EC) 20 mg PO DAILY hydrocodone-acetaminophen 5-325 mg tablet 1 tab PO TID PRN (Reason: pain) Patient Comments: TAKE 1/2 TO 1 TAB BY MOUTH THREE TIMES A DAY NEEDED FOR PAIN albuterol sulfate 90 mcg/actuation HFA aerosol inhaler inhalation Q4 PRN (Reason: wheezing) Trelegy Ellipta 100-62.5-25 mcg blister with device 1 ea inhalation QDAY dapagliflozin propanediol [Farxiga] 10 mg tablet 10 mg PO QDAY Qty: 90 3RF sacubitril-valsartan [Entresto] 49-51 mg tablet 1 tab PO BID Qty: 180 3RF isosorbide mononitrate 60 mg tablet extended release 24 hr 60 mg PO QDAY Qty: 90 3RF aspirin 81 MG tablet 81 mg PO DAILY@0800 montelukast 10 MG tablet 10 mg PO DAILY loratadine 10 MG tablet 10 mg PO DAILY multivitamin with folic acid 1 TABLET tablet 1 tab PO DAILY calcium carbonate-vit D3-min [Caltrate 600-D Plus Minerals] 2 tab PO DAILY cholecalciferol (vitamin D3) 10 mcg (400 unit) tablet,chewable 10 mcg PO DAILY desoximetasone 0.25 % cream 1 applic topical DAILY PRN (Reason: skin irritation) atorvastatin 40 mg tablet 40 mg PO DAILY carvedilol 12.5 mg tablet 12.5 mg PO BID Qty: 180 4RF furosemide [Lasix] 40 mg tablet 40 mg PO DAILY Qty: 90 3RF potassium chloride 20 mEq tablet extended release 20 meq PO DAILY Qty: 90 3RF nitroglycerin 0.4 mg tablet, sublingual See Rx Instructions .ROUTE .COMPLEX Qty: 25 3RF Dose Instruction: 0.4 MG SUBLINGUAL EVERY 5-15M NEEDED FOR CHEST PAIN Rx Instructions: 0.4 MG SUBLINGUAL EVERY 5-15M NEEDED FOR CHEST PAIN Primary Care Provider: Alberto Herr Referrals: Alberto Herr MD [Primary Care Provider] - Print Language: Amharic Disposition Disposition: Acute Care Hospital [facility]
[2024-11-29] MEDS: 0.9% Normal Saline (500mL Bag) 500 ML 999 ML IV (11:48)
[2024-11-29 11:54] LABS: Anion Gap 14 (5-15); BUN 16 mg/dL (4-19); Calcium 9.7 mg/dL (7.6-11.0); Carbon Dioxide 23.2 mmol/L (22.0-29.0); Chloride 90 mmol/L (96-108); Creatinine, Serum 0.7 mg/dL (0.6-1.0); EST Glomerular Filtration Rate 82 (>60); Estimated Creatinine Clearance 45.42 ml/min; Glucose 109 mg/dL (70-99); Potassium 4.3 mmol/L (3.3-5.1); Pro- Brain NATRIURETIC PEPTIDE 7986 pg/mL (<=1800); Sodium Level 128 mmol/L (133-145); Troponin T High Sensitivity 28 ng/L (<=14)
--- NOTE | 2024-11-29 11:58 | RAD_ITS ---
PROCEDURE: CHEST PA AND LATERAL REASON FOR EXAM: Chest pain TECHNIQUE: Frontal and lateral views of the chest. COMPARISON: 07/11/2024 AP upright and lateral chest. FINDINGS: Lungs: Lungs clear of pneumonia and congestion. Pleura: No pleural effusions, thickening, or pneumothorax. Heart: Marked cardiac enlargement Mediastinum/Lou: Unremarkable. Great vessels: Atherosclerotic and tortuous aorta Bones/soft tissues: Unremarkable. Cardiac monitoring leads overlie the chest wall. RAD/Chest PA and Lateral IMPRESSION: Cardiomegaly. Otherwise, no active cardiopulmonary disease. Reading Location: [place] [id number]
[2024-11-29] MEDS: Furosemide 40 MG/4 ML Vial IV ×2 (12:22→17:25)
[2024-11-29] MEDS: Ipratropium/Albuterol Sulfate 3 ML AMPUL.NEB INHALATION ×6 (12:22→23:30)
--- NOTE | 2024-11-29 14:03 | PCM.HP.STD ---
HPI - General General Date of Admission: 11/29/24 Date of Service: 11/29/24 Chief Complaint: Shortness of breath HPI Narrative JESUS AYOUB, is a 84 F who presents with shortness of breath. Patient has been short of breath for the past 8 days. Had started off taking some biotics for possible pneumonia and did not get any better. Has progressively gotten worse during this time and presented to the emergency room. Patient started off on room air but was eventually placed on BiPAP and did help her breathing at that time. Patient had a chest x-ray with the results still pending but showed no obvious evidence of pulmonary vascular congestion. Patient does have a known history of COPD. In the emergency room, she received bronchodilators, methylprednisolone and one-time dose of IV furosemide. Patient does have HFrEF with an EF of 20%. Patient denies any weight change and denies any lower extremity edema. FORMERLY [facility] Medical History Osteoarthritis Osteoporosis Non-smoker Irregular heart beat Hypertension Congestive heart failure (CHF) Alcohol abuse Use of cane as ambulatory aid Mitral regurgitation CAD (coronary artery disease) Wears hearing aid Wears glasses Alcohol use Arthritis High cholesterol Excessive bleeding History of recent fall Back pain Dietary restriction Gastric reflux Former smoker Emphysema, unspecified COPD (chronic obstructive pulmonary disease) Asthma Shortness of breath on exertion Leg cramps History of pain when walking History of echocardiogram History of stress test Cardiology follow-up encounter HLD (hyperlipidemia) Valvular heart disease Chest pressure Hepatic cyst Bilateral carotid artery disease Atherosclerotic heart disease of [place] coronary artery without angina pectoris LBBB (left bundle branch block) Renovascular hypertension Essential hypertension GERD (gastroesophageal reflux disease) Nonischemic cardiomyopathy Dyslipidemia Asthma Chest pain Home Medications ?Medication ?Instructions ?Recorded ?Last Taken ?Type aspirin 81 mg tablet,delayed 81 mg PO DAILY@0800 09/09/18 11/28/24 History release loratadine 10 mg tablet 10 mg PO DAILY allergies 09/09/18 11/28/24 History montelukast 10 mg tablet 10 mg PO DAILY allergies 09/09/18 11/28/24 History multivitamin with folic acid 400 1 tab PO DAILY vitamin 09/09/18 11/28/24 History mcg tablet pantoprazole 20 mg tablet,delayed 20 mg PO DAILY reflux 08/08/19 11/28/24 History release hydrocodone-acetaminophen 5-325mg 1 tab PO TID PRN pain 06/19/22 11/28/24 History 5mg-325mg carvedilol 12.5 mg tablet 12.5 mg PO BID blood pressure #180 12/24/23 11/28/24 Rx tabs atorvastatin 40 mg tablet 40 mg PO DAILY cholesterol 07/11/24 11/28/24 History calcium carbonate-vit D3-min 2 tab PO DAILY vitamin 07/11/24 11/28/24 History cholecalciferol (vitamin D3) 10 10 mcg PO DAILY vitamin 07/11/24 11/28/24 History mcg (400 unit) chewable tablet desoximetasone 0.25 % topical cream 1 applic topical DAILY PRN skin 07/11/24 11/28/24 History irritation furosemide 40 mg tablet (Lasix) 40 mg PO DAILY #90 tabs 08/08/24 11/28/24 Rx potassium chloride 20 mEq 20 meq PO DAILY #90 tabs 08/08/24 11/28/24 Rx tablet,extended release albuterol sulfate 90 mcg/actuation 2 puff inhalation Q4 PRN wheezing 11/16/24 11/29/24 08:00 History aerosol inhaler 2 puff dapagliflozin propanediol 10 mg 10 mg PO QDAY #90 tabs 11/16/24 11/28/24 Rx tablet (Farxiga) fluticasone fur. 100 mcg-umeclid 1 ea inhalation QDAY 11/16/24 11/28/24 History 62.5 mcg-vilant 25 mcg inhalat.powder (Trelegy Ellipta) isosorbide mononitrate 60 mg 60 mg PO QDAY #90 tabs 11/16/24 11/28/24 Rx tablet,extended release 24 hr sacubitril 49 mg-valsartan 51 mg 1 tab PO BID #180 tabs 11/16/24 11/28/24 Rx tablet (Entresto) nitroglycerin 0.4 mg sublingual See Rx Instructions .Route 11/28/24 11/28/24 Rx tablet .COMPLEX chest pain #25 tabs Allergy/AdvReac Type Severity Reaction Status Date / Time adhesive tape AdvReac Itching Verified 11/29/24 11:01 latex AdvReac Rash Verified 11/29/24 11:01 nabumetone (From Relafen) AdvReac Nausea Verified 11/29/24 11:01 ramipril (From Altace) AdvReac Other Verified 11/29/24 11:01 sulfamethoxazole (From AdvReac Nausea Verified 11/29/24 11:01 Bactrim) trimethoprim (From Bactrim) AdvReac Nausea Verified 11/29/24 11:01 Surgical History History of cardiac catheterization Hx of bilateral cataract extraction Hx of colonoscopy History of breast biopsy History of tonsillectomy Social History Smoking Status: Former smoker how long ago did patient quit smokin alcohol intake: current alcohol intake frequency: a few times a week Alcohol type: wine substance use type: does not use caffeine: Yes Type: coffee Number of servings: 2 ROS ROS Narrative Chills, cough. Some abdominal pain and some chest pain. All review of systems were negative except as mentioned above in the history of present illness and the other review of systems. Vital Signs Vital Signs Vital Signs: 11/29/24 10:57 11/29/24 11:03 11/29/24 11:56 Temperature 36.6 C Temperature Source Oral Pulse Rate 98 103 H Respiratory Rate 18 Respiratory Effort Short of Breath Respiratory Pattern Blood Pressure 157/89 H 166/99 H Blood Pressure Mean 111 121 Pulse Ox 95 94 Oxygen Delivery Method Room Air Room Air Fraction of Inspired Oxygen (FIO2) 11/29/24 12:15 11/29/24 12:15 11/29/24 12:40 Temperature Temperature Source Pulse Rate 112 H Respiratory Rate 30 H Respiratory Effort Non-Labored Respiratory Pattern Blood Pressure Blood Pressure Mean Pulse Ox Oxygen Delivery Method Room Air Room Air Fraction of Inspired Oxygen (FIO2) 11/29/24 12:45 11/29/24 12:48 11/29/24 12:55 Temperature 36.6 C Temperature Source Oral Pulse Rate 23 L 99 Respiratory Rate 120 H 24 H Respiratory Effort Respiratory Pattern Tachypnea Blood Pressure 162/106 H 146/100 H Blood Pressure Mean 124 115 Pulse Ox 99 100 Oxygen Delivery Method Bi-pap Fraction of Inspired Oxygen (FIO2) 40 11/29/24 13:25 11/29/24 13:48 11/29/24 13:54 Temperature 36.6 C 36.6 C Temperature Source Oral Pulse Rate 91 86 Respiratory Rate 18 21 H Respiratory Effort Respiratory Pattern Blood Pressure 164/83 H 156/79 H 156/79 H Blood Pressure Mean 110 104 104 Pulse Ox 99 99 Oxygen Delivery Method Bi-pap Fraction of Inspired Oxygen (FIO2) Weight Weight: 64.6 kg Body Mass Index (BMI) 23.7 Physical Exam Const alert and no apparent distress Constitutional Narrative: On BiPAP. No respiratory distress. Follows commands answers questions appropriately. HEENT normocephalic, head/scalp atraumatic, hearing grossly normal bilaterally and moist oral mucous membranes Neck no lymphadenopathy and no JVD Resp Resp Narrative: Bilateral coarse wheezes throughout. Cardio regular rate, regular rhythm, S1 normal heart sound and S2 normal heart sound GI normal to inspection, nondistended, normoactive bowel sounds, soft to palpation, non-tender and non-distended Extremity normal to inspection, full ROM and no clubbing, cyanosis or edema Neuro oriented x3, moves all extremities and no focal motor deficits Sensorium / Orientation: awake and alert Psych affect normal Results Lab / Micro Data Attestation: I reviewed the patient's lab results. 11/29/24 11:12 11/29/24 11:12 Labs: Laboratory Results - last 24 hr 11/29/24 11:12: WBC 8.9, RBC 4.16 L, Hgb 14.4, Hct 41.3, MCV 99.3 H, MCH 34.6 H, MCHC 34.9, RDW Std Deviation 44.2 H, RDW Coeff of Isidra 12.1, Plt Count 165, MPV 9.2, Immature Gran % (Auto) 0.300, Neut % (Auto) 64.4, Lymph % (Auto) 26.1, [place] % (Auto) 8.9, Eos % (Auto) 0.1, Baso % (Auto) 0.2, Absolute Neuts (auto) 5.8, Absolute Lymphs (auto) 2.33, Nucleated RBC % 0, Sodium 128 L, Potassium 4.3, Chloride Direct 90 L, Carbon Dioxide 23.2, Anion Gap 14, BUN 16, Creatinine 0.7, Estim Creat Clear Calc 45.42, Est GFR (MDRD) Non-Af 82, BUN/Creatinine Ratio 22.0 H, Glucose 109 H, Calcium 9.7, Troponin T High Sens 28 H, NT pro BNP II 7986 H EKG Initial EKG: Attestation: I personally reviewed and interpreted this EKG as follows: Prior EKG tracings: available for review EKG Rhythm Intrepretation: Sinus Rhythm (With low bundle branch block. Unchanged from July.) Assessment & Plan Assessment/Plan (1) Acute hypoxic respiratory failure: PLAN: Secondary to acute COPD exacerbation. Seems less likely CHF exacerbation though she does have some small pleural effusions but overall her chest x-rays appears to be much improved from July. Patient is 100% pulse ox on 40% FiO2 with the BiPAP. Will continue the BiPAP and admit her to the ICU. Anticipate the patient be able to come off the BiPAP here soon. Will consult pulmonary for further input. Because of her history of HFrEF, will continue with IV furosemide cautiously. And repeat an echocardiogram. (2) COPD exacerbation: PLAN: Bronchodilators and methylprednisolone. Patient also with some chills. Will check a COVID, influenza and RSV. PLAN: Plan HFrEF: Continue with carvedilol and cicatricial/valsartan. IV Lasix as above. VTE prophylaxis with enoxaparin CODE STATUS: Addressed with the patient and her son. Patient wishes to be full CODE STATUS at this time. Patient advised that she can change her mind at any time just to notify us if she does change her mind when she is in hospital. Disposition: To be determined. Anticipate 2 to 3 days in the hospital. Will have a physical, occupational and case management see her. Charges/Coding Visit Charges Inpatient E&M: 61121 Init Hosp L3
--- NOTE | 2024-11-29 14:14 | ED.RN ---
Report called to Letha VAZQUEZ in ICU.
--- NOTE | 2024-11-29 14:52 | ECHOL_ITS ---
Reason For Study Reason For Study: CHF Procedure This was a limited 2D transthoracic echocardiogram. The study was technically difficult. Patient scanned sitting up on bipap. Exam performed portable in ICU/CCU. Left Ventricle The estimated ejection fraction is 20 %. There is severe global hypokinesis of the left ventricle. Mitral Valve There is no mitral valve stenosis. Aortic Valve There is no aortic stenosis. MMode/2D Measurements & Calculations LVIDd: 4.4 cm IVSd: 1.3 cm LVAd ap4: 30.4 cm2 LVIDs: 4.0 cm LVPWd: 1.3 cm LVLd ap4: 7.6 cm RVDd: 2.6 cm FS: 10.2 % EDV(MOD-sp4): 102.3 ml EDV(sp4-el): 103.2 ml LVAs ap4: 24.0 cm2 LVLs ap4: 7.5 cm ESV(MOD-sp4): 64.2 ml ESV(sp4-el): 65.1 ml EF(MOD-sp4): 37.2 % EF(sp4-el): 36.9 % LVAd ap2: 28.8 cm2 SV(MOD-sp4): 38.0 ml SV(MOD-sp2): 12.6 ml LVLd ap2: 8.2 cm SI(MOD-sp4): 22.2 ml/m2 SI(MOD-sp2): 7.4 ml/m2 EDV(MOD-sp2): 83.5 ml EDV(sp2-el): 86.4 ml LVAs ap2: 25.5 cm2 LVLs ap2: 7.6 cm ESV(MOD-sp2): 70.9 ml ESV(sp2-el): 72.5 ml EF(MOD-sp2): 15.1 % SV(sp4-el): 38.1 ml LA dimension(2D): 3.8 cm ECHO/Echo, Limited Study Interpretation Summary The estimated ejection fraction is 20 %. There is severe global hypokinesis of the left ventricle. Ordering Physician: Jaime Vela Referring Physician: Alberto Herr M.D. Performed By: Anat Santos RDCS
[2024-11-29 14:57] LABS: TROPONIN VARIANCE 2 HR 0; Troponin T High Sens 2 HR 28 ng/L (<=14)
--- NOTE | 2024-11-29 15:00 | CM.ED ---
Social Work Patient stated that she has both HPOA and LW completed. Patient asked to bring in copy for hospital when able. Brianna Crane, CATTYMAN, IRRIGATOR GRAVITY FLOW
[2024-11-29] MEDS: 0.9% Saline Lock 10 ML Syringe IV ×3 (15:48→21:07)
--- NOTE | 2024-11-29 16:33 | CASEMGMT ---
Care Management Face to Face with patient for initial transition planning/care coordination assessment in the ED.? This software writer introduced self and role at [facility]. Patient alert and oriented. Patient willing to participate in assessment and is able to answer all questions appropriately.? Care providers, pharmacy, and demographics verified. Admitting Diagnosis: Acute hypoxic respiratory failure Other diagnosis history: ?CHF, CAD, COPD, Asthma, hypertension PCP: ?[facility] Specialists: ?Rajendra Preferred Pharmacy: ?[facility] Insurance: ?[employer] Prescription Benefit: ?yes Living Will/HPOA: ?Patient states she has both HPOA and LW completed. LNOK: Son Living Arrangements: patient lives alone.? Has palliative care , has been independent with ADLs and IADLs.? Transportation: [employer] [employer] transport DME: ?stair lift, walker, cane, grab bars, shower chair HHC: Used [facility] HH in the past SNF/Rehab: None Community Resources: ?[facility] History: None Patient goals: Patient wishes to discharge home. Patient denies any further needs or concerns at this time. Disposition Plan: admission to acute; RN CM/SW to follow for discharge planning needs that may arise. Brianna Crane, FARM WORKER, SCHOOL COORDINATOR
[2024-11-29 16:42] LABS: TROPONIN VARIANCE 4 HR 0; Troponin T High Sens 4 HR 28 ng/L (<=14)
[2024-11-29] MEDS: Carvedilol 12.5 MG Tablet PO (17:25)
[2024-11-29] MEDS: SACUBITRIL/VALSARTAN 49-51 MG TABLET 1 EACH PO (21:06)
[2024-11-30] VITALS (20 sets, daily range): BP systolic 101–172; BP diastolic 60–108; PULSE 78–101; RESP 12–20; TEMP 36–36.6; O2SAT 92–100; BMI 22.6
[2024-11-30] MEDS: Ipratropium/Albuterol Sulfate 3 ML AMPUL.NEB INHALATION ×6 (03:26→22:03)
[2024-11-30 06:07] LABS: Absolute Lymphocyte Count 1.05 X10^3/uL (0.83-4.51); Basophil# 0.01 X10^3/uL; Basophil% 0.1 % (0-1); Eosinophil# 0.02 X10^3/uL; Eosinophils% 0.2 % (0-5); Hemoglobin 14.4 g/dL (12.0-15.0); Lymphocyte # 1.05 X10^3/ul (0.83-4.51); Lymphocyte % 9.9 % (19-41); Mean Corpuscular Hgb 34.4 pg (27.0-32.0); Mean Corpuscular Volume 95.7 fL (81-99); Mean Platelet Vol. 9.2 fl (6.2-12.0); Monocyte# 0.46 X10^3/uL; Monocyte% 4.3 % (0-10); NRBC Flagged by Analyzer 0 % (0-5); Neutrophil % 84.7 % (47-70); Platelet Count 190 K/mm3 (150-450); RBC Distribution Width CV 12.1 % (11.6-14.6); RBC Distribution Width SD 42.1 fl (35.1-43.9); Red Blood Count 4.18 M/mm3 (4.2-5.4); White Blood Count 10.6 K/mm3 (4.4-11.0)
[2024-11-30 06:34] LABS: Anion Gap 15 (5-15); BUN 17 mg/dL (4-19); BUN/Creat Ratio 25.4 RATIO (10-20); Calcium 8.9 mg/dL (7.6-11.0); Carbon Dioxide 22.9 mmol/L (22.0-29.0); Chloride 90 mmol/L (96-108); Creatinine, Serum 0.7 mg/dL (0.6-1.0); EST Glomerular Filtration Rate 85 (>60); Estimated Creatinine Clearance 45.42 ml/min; Glucose 147 mg/dL (70-99); Potassium 3.1 mmol/L (3.3-5.1); Sodium Level 128 mmol/L (133-145)
--- NOTE | 2024-11-30 07:49 | CON.PCM.CC_ITS ---
Assessment & Plan Assessment/Plan (1) Acute hypoxic respiratory failure: PLAN: Plan RECOMMENDATIONS: 1. Wean supplemental oxygen to maintain saturations at or above 90%. 2. Ongoing diuresis as tolerated by hemodynamics and renal function. 3. Continue scheduled bronchodilators. 4. Transition from IV steroids to prednisone 40 mg daily x 5 days. 5. Electrolyte repletion as ordered. 6. Continue appropriate DVT prophylaxis. 7. The patient is medically stable for transfer out of the intensive care unit. 8. The patient should follow-up with her primary car checker after discharge. 9. Will sign off at this time. Please call with any additional questions. IMPRESSIONS: 1. Acute hypoxemic respiratory failure Clinical suspicion for underlying decompensated heart failure leading to presentation. While the patient does have underlying COPD, she is on a stable triple therapy inhaler regimen. Her chest imaging did not demonstrate anything to suggest an occult pulmonary infectious process. However, the patient's BNP was significantly elevated. In addition, while she initially required BiPAP therapy at presentation, upon diuresis with IV Lasix, the patient's respiratory status has stabilized. She has been weaned to nasal cannula oxygen at 2 L/min. I agree with continuing diuresis as tolerated by hemodynamics and renal function. Given her history of COPD, it is reasonable to continue scheduled bronchodilators. I am going to decrease her steroids to prednisone 40 mg daily, with plans to complete a 5-day burst. She should follow-up with her primary car checker after discharge. 2. History of COPD/valvular heart disease/heart failure with reduced ejection fraction/coronary artery disease Complicates care, management, recovery and prognosis. Continue home medications as indicated. This note was generated with [employer] dictation software. It may contain incorrect words, spelling, and punctuation that were not noted in checking the note before signing. HPI Consult Data Date of Consult: 11/30/24 HPI Narrative Reason for Consultation: Respiratory failure HPI Narrative: The patient is an 84-year-old female, with a history as outlined below, who presented to the emergency department on November 29 with worsening shortness of breath of approximately 1 weeks duration. The patient reported that she has a known history of advanced age COPD and is currently followed by Dr. Valentina Camargo of pulmonary medicine at [facility]. She is maintained on a triple therapy inhaler regimen at her baseline. She reported that she does not require supplemental oxygen in her home environment. The patient is also followed in the pulmonary medicine clinic due to a history of coronary artery disease, valvular heart disease and heart failure with reduced ejection fraction. On presentation to the emergency department, the patient was documented to be afebrile and hemodynamically stable. Due to increased work of breathing, the patient was eventually transition to BiPAP in the ED. Laboratory evaluation revealed a normal white blood cell count. Hemoglobin and platelet count were stable. Chemistry profile was notable for a sodium of 128 and chloride of 90. Creatinine was within normal limits. Troponin was mildly elevated at 28. BNP was elevated at 7986. Chest x-ray was significant for cardiomegaly without any acute cardiopulmonary process noted. The patient was subsequently placed on scheduled IV diuretic therapy along with bronchodilators and steroids. She was admitted to the medical intensive care unit for further management. This morning, the patient has improved significantly. She has been weaned to nasal cannula oxygen at 2 L/min. Potassium is low at 3.1 with a normal creatinine. FORMERLY [facility] Medical History Osteoarthritis Osteoporosis Non-smoker Irregular heart beat Hypertension Congestive heart failure (CHF) Alcohol abuse Use of cane as ambulatory aid Mitral regurgitation CAD (coronary artery disease) Wears hearing aid Wears glasses Alcohol use Arthritis High cholesterol Excessive bleeding History of recent fall Back pain Dietary restriction Gastric reflux Former smoker Emphysema, unspecified COPD (chronic obstructive pulmonary disease) Asthma Shortness of breath on exertion Leg cramps History of pain when walking History of echocardiogram History of stress test Cardiology follow-up encounter HLD (hyperlipidemia) Valvular heart disease Chest pressure Hepatic cyst Bilateral carotid artery disease Atherosclerotic heart disease of [place] coronary artery without angina pectoris LBBB (left bundle branch block) Renovascular hypertension Essential hypertension GERD (gastroesophageal reflux disease) Nonischemic cardiomyopathy Dyslipidemia Asthma Chest pain Home Medications ?Medication ?Instructions ?Recorded ?Last Taken ?Type aspirin 81 mg tablet,delayed 81 mg PO DAILY@0800 09/0911/28/24 History release loratadine 10 mg tablet 10 mg PO DAILY allergies 04/2011/28/24 History montelukast 10 mg tablet 10 mg PO DAILY allergies 04/2011/28/24 History multivitamin with folic acid 400 1 tab PO DAILY vitami n 09/09/18 11/28/24 History mcg tablet pantoprazole 20 mg tablet,delayed 20 mg PO DAILY reflu x 08/08/19 11/28/24 History release hydrocodone-acetaminophen 5-325mg 1 tab PO TID PRN amy n 06/19/22 11/28/24 History 5mg-325mg carvedilol 12.5 mg tablet 12.5 mg PO BID blood pressur e #180 12/24/23 11/28/24 Rx tabs atorvastatin 40 mg tablet 40 mg PO DAILY cholesterol 1 11/28/24 History calcium carbonate-vit D3-min 2 tab PO DAILY vitamin 11/28/24 History cholecalciferol (vitamin D3) 10 10 mcg PO DAILY vitami n 07/11/24 11/28/24 History mcg (400 unit) chewable tablet desoximetasone 0.25 % topical cream 1 applic topical D AILY PRN skin 07/11/24 11/28/24 History irritation furosemide 40 mg tablet (Lasix) 40 mg PO DAILY #90 tab s 08/08/24 11/28/24 Rx potassium chloride 20 mEq 20 meq PO DAILY #90 tabs 02/2411/28/24 Rx tablet,extended release albuterol sulfate 90 mcg/actuation 2 puff inhalation Q 4 PRN wheezing 11/16/24 11/29/24 08:00 History aerosol inhaler 2 puff dapagliflozin propanediol 10 mg 10 mg PO QDAY #90 tabs 11/16/24 11/28/24 Rx tablet (Farxiga) fluticasone fur. 100 mcg-umeclid 1 ea inhalation QDAY 11/16/24 11/28/24 History 62.5 mcg-vilant 25 mcg inhalat.powder (Trelegy Ellipta) isosorbide mononitrate 60 mg 60 mg PO QDAY #90 tabs 11/28/24 Rx tablet,extended release 24 hr sacubitril 49 mg-valsartan 51 mg 1 tab PO BID #180 tab s 11/16/24 11/28/24 Rx tablet (Entresto) nitroglycerin 0.4 mg sublingual See Rx Instructions .R oute 11/28/24 11/28/24 Rx tablet .COMPLEX chest pain #25 tabs Allergy/AdvReac Type Severity Reaction Status Date / Time adhesive tape AdvReac Itching Verified 11/29/24 11:01 latex AdvReac Rash Verified 11/29/24 11:01 nabumetone (From Relafen) AdvReac Nausea Verified 11/29/24 11:01 ramipril (From Altace) AdvReac Other Verified 11/29/24 11:01 sulfamethoxazole (From AdvReac Nausea Verified 11/29/24 11:01 Bactrim) trimethoprim (From Bactrim) AdvReac Nausea Verified 11/29/24 11:01 Surgical History History of cardiac catheterization Hx of bilateral cataract extraction Hx of colonoscopy History of breast biopsy History of tonsillectomy Social History Smoking Status: Former smoker how long ago did patient quit smokin alcohol intake: current alcohol intake frequency: a few times a week Alcohol type: wine substance use type: does not use caffeine: Yes Type: coffee Number of servings: 2 ROS ROS Narrative 10 systems were reviewed with pertinent positives as noted in the HPI above. Physical Exam Const alert, oriented x3 and no apparent distress General Appearance: cooperative HEENT normocephalic, head/scalp atraumatic and moist oral mucous membranes Eyes PERRL, EOMs intact bilaterally and conjunctivae normal Neck supple General: trachea midline Chest inspection of chest normal Resp normal respiratory effort Auscultation: wheezes and diminished lung sounds Cardio regular rate and regular rhythm GI normal to inspection, nondistended, normoactive bowel sounds Extremity no clubbing, cyanosis or edema Skin no rashes or lesions noted Neuro CN's II-XII intact bilaterally, moves all extremities and no focal motor deficits Psych cooperative and affect normal Lab / Micro Data 11/30/24 05:45 11/30/24 05:45 Labs: Laboratory Results - last 24 hr 11/29/24 11:12: WBC 8.9, RBC 4.16 L, Hgb 14.4, Hct 41.3, MCV 99.3 H, MCH 34.6 H, MCHC 34.9, RDW Std Deviation 44.2 H, RDW Coeff of Isidra 12.1, Plt Count 165, MPV 9.2, Immature Gran % (Auto) 0.300, Neut % (Auto) 64.4, Lymph % (Auto) 26.1, [place] % (Auto) 8.9, Eos % (Auto) 0.1, Baso % (Auto) 0.2, Absolute Neuts (auto) 5.8, Absolute Lymphs (auto) 2.33, Nucleated RBC % 0, Sodium 128 L, Potassium 4.3, C hloride Direct 90 L, Carbon Dioxide 23.2, Anion Gap 14, BUN 16, Creatinine 0.7, Estim Creat Clear Calc 45.42, Est GFR (MDRD) Non-Af 82, BUN/Creatinine Ratio 22.0 H, Glucose 109 H, Calcium 9.7, Troponin T High Sens 28 H, NT pro BNP II 7986 H 11/29/24 14:19: Troponin T Hi Sens 2 Hr 28 H, Troponin T Hi Sens 2Hr Delta 0 11/29/24 15:46: Troponin T Hi Sens 4Hr 28 H, Troponin T Hi Sens 4Hr Delta 0 11/30/24 05:45: WBC 10.6, RBC 4.18 L, Hgb 14.4, Hct 40.0, MCV 95.7, MCH 34.4 H, MCHC 36.0, RDW Std Deviation 42.1, RDW Coeff of Isidra 12.1, Plt Count 190, MPV 9.2, Immature Gran % (Auto) 0.800, Neut % (Auto) 84.7 H, Lymph % (Auto) 9.9 L, [place] % (Auto) 4.3, Eos % (Auto) 0.2, Baso % (Auto) 0.1, Absolute Neuts (auto) 9.0 H, Absolute Lymphs (auto) 1.05, Nucleated RBC % 0, Sodium 128 L, Potassium 3.1 L, Chloride Direct 90 L, Carbon Dioxide 22.9, Anion Gap 15, BUN 17, Creatinine 0.7, Estim Creat Clear Calc 45.42, Est GFR (MDRD) Non-Af 85, B UN/Creatinine Ratio 25.4 H, Glucose 147 H, Calcium 8.9 Micro: Microbiology 11/29/24 14:20 Mucosa - Nose SARS-CoV-2, Influenza & RSV (PCR) - Final Imaging Radiology Impression Chest X-Ray 11/29/24 11:58 IMPRESSION: Cardiomegaly. Otherwise, no active cardiopulmonary disease. Reading Location: [facility]--1 Charges/Coding Visit Charges Inpatient E&M: 16873 Init Hosp L3
[2024-11-30] MEDS: Enoxaparin 40 MG/0.4 ML Syringe SC (08:04)
[2024-11-30] MEDS: Empagliflozin 25 MG Tablet PO (08:05)
[2024-11-30] MEDS: Montelukast 10 MG Tablet PO (08:05)
[2024-11-30] MEDS: Potassium Chloride Oral Tablet 20 MEQ PO (08:05)
[2024-11-30] MEDS: Carvedilol 12.5 MG Tablet PO ×2 (08:05→16:57)
[2024-11-30] MEDS: Aspirin 81 MG TAB.CHEW PO (08:05)
[2024-11-30] MEDS: Loratadine 10 MG Tablet PO (08:05)
[2024-11-30] MEDS: Pantoprazole Sodium 20 MG Tablet PO (08:05)
[2024-11-30] MEDS: Furosemide 40 MG/4 ML Vial IV ×2 (08:05→16:56)
[2024-11-30] MEDS: SACUBITRIL/VALSARTAN 49-51 MG TABLET 1 EACH PO ×2 (08:05→21:09)
[2024-11-30] MEDS: Isosorbide Mononitrate 60 MG Tablet PO (08:05)
[2024-11-30] MEDS: Potassium Chloride Oral Tablet 20 MEQ 40 MEQ PO (08:11)
--- NOTE | 2024-11-30 10:48 | CASEMGMT ---
GEORGE BREWER NOTE: Verified w/[facility] that pt is active with them. They were notified pt has been admitted to the hospital. Robin KENNEDY RN, CM
--- NOTE | 2024-11-30 15:49 | PCM.PN.HOSP ---
Reason for Visit Reason for Visit: Diagnoses Chronic obstructive pulmonary disease with (acute) exacerbation (11/29/24) Acute respiratory failure with hypoxia (11/29/24) Subjective Subjective Patient was seen and examined today, she is currently on room air. I had a brief conversation with critical care about her medical care, Objective Data Objective Data Vital Signs: Vital Signs Temp Pulse Resp BP Pulse Ox O2 Del Method O2 Flow Rate 97.0 F L 93 16 101/60 95 Room Air 1.5 11/30/24 14:28 11/30/24 15:16 11/30/24 15:16 11/30/24 14:28 11/30/24 15:16 11/30/24 15:16 11/30/24 13:48 FiO2 30 11/30/24 06:00 Oxygen Flow Rate (L/min) 1.5 Oxygen Delivery Method Room Air Weight: 61.8 kg Body Mass Index (BMI) 22.6 Intake & Output: Intake and Output for Last 24 Hours 11/28/24 11/29/24 11/30/24 23:59 23:59 23:59 Intake Total 460 / 580 120 / 120 Output Total 650 / 650 700 / 700 Balance -190 / -70 -580 / -580 Lab / Micro Data 11/30/24 05:45 11/30/24 05:45 Labs: Laboratory Results - last 24 hr 11/29/24 15:46: Troponin T Hi Sens 4Hr 28 H, Troponin T Hi Sens 4Hr Delta 0 11/30/24 05:45: WBC 10.6, RBC 4.18 L, Hgb 14.4, Hct 40.0, MCV 95.7, MCH 34.4 H, MCHC 36.0, RDW Std Deviation 42.1, RDW Coeff of Isidra 12.1, Plt Count 190, MPV 9.2, Immature Gran % (Auto) 0.800, Neut % (Auto) 84.7 H, Lymph % (Auto) 9.9 L, [place] % (Auto) 4.3, Eos % (Auto) 0.2, Baso % (Auto) 0.1, Absolute Neuts (auto) 9.0 H, Absolute Lymphs (auto) 1.05, Nucleated RBC % 0, Sodium 128 L, Potassium 3.1 L, Chloride Direct 90 L, Carbon Dioxide 22.9, Anion Gap 15, BUN 17, Creatinine 0.7, Estim Creat Clear Calc 45.42, Est GFR (MDRD) Non-Af 85, BUN/Creatinine Ratio 25.4 H, Glucose 147 H, Calcium 8.9 Micro: Microbiology 11/29/24 14:20 Mucosa - Nose SARS-CoV-2, Influenza & RSV (PCR) - Final Radiography Diagnostic Testing: Radiology Impression Echocardiogram 11/29/24 14:52 Interpretation Summary The estimated ejection fraction is 20 %. There is severe global hypokinesis of the left ventricle. Ordering Physician: Jaime Vela Referring Physician: Alberto Herr M.D. Performed By: Anat Santos RDCS Physical Exam Const alert, oriented x3, no apparent distress and healthy appearing General Appearance: cooperative, well kempt and well developed Orientation / Consciousness: awake, oriented to person, oriented to place and oriented to time HEENT normocephalic, head/scalp atraumatic and moist oral mucous membranes Eyes PERRL, EOMs intact bilaterally and conjunctivae normal Neck supple, no JVD, thyroid normal and no carotid bruits General: trachea midline Resp normal respiratory effort, no retractions, no use of accessory muscles and clear to auscultation bilaterally Auscultation: Negative for rales, rhonchi or wheezes Cardio regular rate, regular rhythm, S1 normal heart sound, S2 normal heart sound, no murmurs, no rub and no gallops Cardio Narrative: Heart rate and rhythm is tachycardic GI normal to inspection, nondistended, normoactive bowel sounds, soft to palpation, non-tender and non-distended Extremity no clubbing, cyanosis or edema Skin no rashes or lesions noted General Skin Exam: no breakdown Neuro oriented x3, CN's II-XII intact bilaterally, moves all extremities, no focal motor deficits and no sensory deficits noted Sensorium / Orientation: awake and alert Speech: speech normal Psych affect normal Assessment & Plan Assessment/Plan (1) CHF exacerbation: PLAN: Plan 1. Acute on chronic systolic congestive heart failure-patient will remain on her present medications including IV diuresis and Entresto #2 chronic obstructive pulmonary disease-pulmonary medicine is recommended a short course of prednisone, patient will being on aerosol treatments #3 hypoxia-resolved at this time, patient will need an ambulatory oxygen test before discharging home #4 nonischemic cardiomyopathy-complicates care, management, recovery, and prognosis #5 hypokalemia-patient will be given potassium supplementation Total clinical time spent by myself addressing the patient's medical issues, reviewing all of her data, and collaborating with patient's care team: 50 minutes Charges/Coding Visit Charges Inpatient E&M: 12915 [facility] L3
[2024-11-30 16:45] LABS: Bedside Glucose 121 mg/dL (74-106)
[2024-11-30] MEDS: BENZOCAINE/MENTHOL 1 LOZENGE MUCOUS MEM (16:56)
[2024-11-30] MEDS: guaiFENesin Dm 10 ML UDC PO (16:56)
--- NOTE | 2024-11-30 21:16 | CPS ---
Patient refused PAP therapy for night time use.
[2024-12-01] VITALS (8 sets, daily range): BP systolic 114–145; BP diastolic 67–78; PULSE 81–100; RESP 14–20; TEMP 36.6–36.7; O2SAT 88–98; BMI 22.3
[2024-12-01] MEDS: Ipratropium/Albuterol Sulfate 3 ML AMPUL.NEB INHALATION ×3 (07:21→15:04)
[2024-12-01] MEDS: Potassium Chloride Oral Tablet 20 MEQ PO (09:25)
[2024-12-01] MEDS: Empagliflozin 25 MG Tablet PO (09:25)
[2024-12-01] MEDS: Furosemide 40 MG/4 ML Vial IV (09:25)
[2024-12-01] MEDS: Pantoprazole Sodium 20 MG Tablet PO (09:25)
[2024-12-01] MEDS: Enoxaparin 40 MG/0.4 ML Syringe SC (09:25)
[2024-12-01] MEDS: predniSONE 20 MG Tablet 40 MG PO (09:26)
[2024-12-01] MEDS: Isosorbide Mononitrate 60 MG Tablet PO (09:26)
[2024-12-01] MEDS: Carvedilol 12.5 MG Tablet PO (09:26)
[2024-12-01] MEDS: Aspirin 81 MG TAB.CHEW PO (09:26)
[2024-12-01] MEDS: SACUBITRIL/VALSARTAN 49-51 MG TABLET 1 EACH PO (09:26)
[2024-12-01] MEDS: Loratadine 10 MG Tablet PO (09:26)
[2024-12-01] MEDS: Montelukast 10 MG Tablet PO (10:54)
--- NOTE | 2024-12-01 12:53 | CASEMGMT ---
Addendum entered by Giuliana Andersen 12/01/24 16:04: Per Dr Huang, pt will discharge home today. He is aware home amb O2 testing completed and pt qualifies for O2 @ 2 l/m w/exertion. He states pt is adamant she does not want home O2 and he plans to discharge her home late this afternoon without O2 when her son comes back to pick her up. [facility] made aware pt is discharging home today. SOC slated for Wednesday. Pt made aware. Discussed home O2 and made aware she does qualify for O2 @ 2 l/m w/exertion. Pt states, I don't want it. I don't plan to be getting up and doing a lot. My heart is only @ 20% and I'm not going to be doing much. She states again, I don't want it and stated, I don't need it. She denies having any discharge needs/concerns. E-mail sent to [facility] [place] [place] to notify them pt is discharging home today. Addendum entered by Giuliana Andersen 12/01/24 13:02: Call received from [facility], they are able to accept pt. Original Note: GEORGE BREWER NOTE: Per Dr Huang, pt to have home O2 amb testing completed today and she may be ready for discharge today. Therapy evals from yesterday reviewed. Pt ambulated 60 ft x 2 w/WW and CGA of one. Additional therapy recommended. RN CM to room. Pt resting in bed. Son, Wisam, @ bedside. Discussed discharge planning. Son would like pt to have HHC and pt agreeable. [facility], as pt has had them before, and they decline wanting list of other HHC options. Pt initially stated she did want therapy, stating, I've exercised enough in my life. Son stated, though, he thinks it would be a good idea and did voice this to pt. She was then agreeable to therapy. Discussed possible need of home o2 @ discharge. Pt states I don't need oxygen. I have never needed it before. Made aware she would not discharge home w/O2 unless pulse ox <89 % and that amb O2 testing would be completed prior to discharge. Son also reinforced with pt that she may need it this time. If O2 is needed, son states to use [employer]. They were made aware [employer] to be called prior to discharge, if O2 is needed, to make arrangements for home o2 delivery, in addition to the portable o2 tank that will be supplied prior to discharge for her to go home on. Pt states she has 3 pulse ox's @ home. Pt and son deny having any further discharge needs/concerns. Referral made to [facility] for SN and PT/OT. Robin CASEN RN CM
[2024-12-01 15:48] LABS: Anion Gap 13 (5-15); BUN 31 mg/dL (4-19); BUN/Creat Ratio 34.1 RATIO (10-20); Calcium 9.2 mg/dL (7.6-11.0); Carbon Dioxide 22.7 mmol/L (22.0-29.0); Chloride 91 mmol/L (96-108); Creatinine, Serum 0.92 mg/dL (0.70-1.20); EST Glomerular Filtration Rate 61 (>60); Glucose 147 mg/dL (70-99); Potassium 4.7 mmol/L (3.3-5.1); Sodium Level 127 mmol/L (133-145)
--- NOTE | 2024-12-01 15:49 | PCM.DC ---
Discharge Instructions Diet Discharge Diet: No restrictions DC O2, CPAP, BIPAP needs Home O2 Discharge instructions: No Dressing / Incision Discharge Activity: Return to Normal Activity Weight Bearing Status: Full weight bearing Follow Up Care Test Results: Test results from this visit will be discussed in further detail at your follow-up appointment, if applicable. Discharge Plan Admission Admit Date/Time: 11/29/24 13:55 Primary Reason for Your Visit: Acute congestive heart failure, COPD Attending Provider: Donal Huang Primary Care Provider: Alberto Herr Consulting Providers: Jaiem Vela Discharge Orders/Prescriptions Prescriptions: New furosemide [Lasix] 40 mg tablet 40 mg PO BID Qty: 60 0RF prednisone 20 mg Tablet 40 mg PO BREAKFAST Qty: 14 0RF Rx Instructions: Start on 12/02/2024 Continued pantoprazole 20 mg tablet,delayed release (DR/EC) 20 mg PO DAILY hydrocodone-acetaminophen 5-325 mg tablet 1 tab PO TID PRN (Reason: pain) Patient Comments: TAKE 1/2 TO 1 TAB BY MOUTH THREE TIMES A DAY NEEDED FOR PAIN albuterol sulfate 90 mcg/actuation HFA aerosol inhaler 2 puff inhalation Q4 PRN (Reason: wheezing) Trelegy Ellipta 100-62.5-25 mcg blister with device 1 ea inhalation QDAY dapagliflozin propanediol [Farxiga] 10 mg tablet 10 mg PO QDAY Qty: 90 3RF sacubitril-valsartan [Entresto] 49-51 mg tablet 1 tab PO BID Qty: 180 3RF isosorbide mononitrate 60 mg tablet extended release 24 hr 60 mg PO QDAY Qty: 90 3RF aspirin 81 MG tablet 81 mg PO DAILY@0800 montelukast 10 MG tablet 10 mg PO DAILY loratadine 10 MG tablet 10 mg PO DAILY multivitamin with folic acid 1 TABLET tablet 1 tab PO DAILY calcium carbonate-vit D3-min [Caltrate 600-D Plus Minerals] 2 tab PO DAILY cholecalciferol (vitamin D3) 10 mcg (400 unit) tablet,chewable 10 mcg PO DAILY desoximetasone 0.25 % cream 1 applic topical DAILY PRN (Reason: skin irritation) atorvastatin 40 mg tablet 40 mg PO DAILY carvedilol 12.5 mg tablet 12.5 mg PO BID Qty: 180 4RF potassium chloride 20 mEq tablet extended release 20 meq PO DAILY Qty: 90 3RF nitroglycerin 0.4 mg tablet, sublingual See Rx Instructions .ROUTE .COMPLEX Qty: 25 3RF Dose Instruction: 0.4 MG SUBLINGUAL EVERY 5-15M NEEDED FOR CHEST PAIN Rx Instructions: 0.4 MG SUBLINGUAL EVERY 5-15M NEEDED FOR CHEST PAIN Discontinued furosemide [Lasix] 40 mg tablet 40 mg PO DAILY Qty: 90 3RF Referrals / Follow Up: Alberto Herr MD [Primary Care Provider] - Within 2 Weeks Disposition Disposition (needs filled in before D/C Order can be placed): Home Health Service
--- NOTE | 2024-12-01 15:56 | PCM.DC.SUM ---
Providers Date of Admission: 11/29/24 Date of Discharge: 12/01/24 Primary Care Physician: Dr. Alberto Herr MD Consultations 11/29/24 14:52 Consult: [facility] [place] / Pulmonary Medicine Routine Consulting Provider: Intensivists/Pulmonary Med Reason for Consult: respiratory failure. EMERGENT Consult: No MD Notified: Yes Date Notified: 11/29/24 Time Notified: 14:00 Method of Notification: Text Reason For Visit: ACUTE HYPOXIC RESPIRATORY FAILURE Diagnosis Discharge Diagnosis (1) CHF exacerbation: Status: Chronic Code(s): I50.9 - Heart failure, unspecified Plan 1. Acute on chronic systolic congestive heart failure-patient will remain on her present medications including IV diuresis and Entresto #2 chronic obstructive pulmonary disease-pulmonary medicine is recommended a short course of prednisone, patient will being on aerosol treatments #3 hypoxia-resolved at this time, patient will need an ambulatory oxygen test before discharging home #4 nonischemic cardiomyopathy-complicates care, management, recovery, and prognosis #5 hypokalemia-patient will be given potassium supplementation Total clinical time spent by myself addressing the patient's medical issues, reviewing all of her data, and collaborating with patient's care team: 50 minutes Medications at Discharge Home Medications aspirin 81 mg tablet,delayed release 81 mg PO DAILY@0800 09/09/18 loratadine 10 mg tablet 10 mg PO DAILY allergies 09/09/18 montelukast 10 mg tablet 10 mg PO DAILY allergies 09/09/18 multivitamin with folic acid 400 mcg tablet 1 tab PO DAILY vitamin 09/09/18 pantoprazole 20 mg tablet,delayed release 20 mg PO DAILY reflux 08/08/19 hydrocodone-acetaminophen 5-325mg 5mg-325mg 1 tab PO TID PRN pain 06/19/22 carvedilol 12.5 mg tablet 12.5 mg PO BID blood pressure #180 tabs 12/24/23 atorvastatin 40 mg tablet 40 mg PO DAILY cholesterol 07/11/24 calcium carbonate-vit D3-min 2 tab PO DAILY vitamin 07/11/24 cholecalciferol (vitamin D3) 10 mcg (400 unit) chewable tablet 10 mcg PO DAILY vitamin 07/11/24 desoximetasone 0.25 % topical cream 1 applic topical DAILY PRN skin irritation 07/11/24 potassium chloride 20 mEq tablet,extended release 20 meq PO DAILY #90 tabs 08/08/24 albuterol sulfate 90 mcg/actuation aerosol inhaler 2 puff inhalation Q4 PRN wheezing 11/16/24 dapagliflozin propanediol 10 mg tablet (Farxiga) 10 mg PO QDAY #90 tabs 11/16/24 fluticasone fur. 100 mcg-umeclid 62.5 mcg-vilant 25 mcg inhalat.powder (Trelegy Ellipta) 1 ea inhalation QDAY 11/16/24 isosorbide mononitrate 60 mg tablet,extended release 24 hr 60 mg PO QDAY #90 tabs 11/16/24 sacubitril 49 mg-valsartan 51 mg tablet (Entresto) 1 tab PO BID #180 tabs 11/16/24 nitroglycerin 0.4 mg sublingual tablet See Rx Instructions .Route .COMPLEX chest pain #25 tabs 11/28/24 furosemide 40 mg tablet (Lasix) 40 mg PO BID #60 tabs 12/01/24 prednisone 20 mg tablet 40 mg (2 x 20 mg) PO BREAKFAST #14 tabs 12/01/24 Hospital Course Operations None Procedures 2-D Echocardiogram Summary of Care Provided Minutes Spent on Discharge: 31 Hospital Course: This 84-year-old white female was seen in the emergency room at [facility] with complaints of shortness of breath. Workup included a CBC which was unremarkable, patient's beta natruretic peptide was [place] 7986. Chest x-ray showed cardiomegaly. It was felt that the patient had clinical congestive heart failure, she was admitted to ICU and seen by critical care, critical care recommended continuing IV diuresis and giving the patient oral corticosteroids due to her history of COPD. Patient stabilized and was transferred to PCU. On 12/01/2024, patient was seen and examined: On examination she appeared in good health and spirits, she does not appear to be in any distress. Vital signs as documented. Skin warm and dry and without overt rashes. Neck without JVD, thyroid appears normal, trachea is midline, neck is supple. Lungs clear, normal air movement was noted. Heart exam notable for regular rhythm, normal sounds and absence of murmurs, rubs or gallops. Abdomen unremarkable and without evidence of organomegaly, masses, or abdominal aortic enlargement, bowel sounds are present in all 4 quadrants, no abdominal tenderness was noted. Extremities nonedematous, no cyanosis was noted, no clubbing was noted. Neuro: Cranial nerves II through XII are grossly intact, no focal motor deficits were noted, sensation to light touch and pinprick is intact, motor exam 5/5 throughout. Psych: Patient is alert and oriented x3, she does not appear anxious or depressed, she does not appear agitated. Patient appears stable for discharge home on 12/01/2024. She required 2 L of oxygen only with ambulation. Weight / BMI Weight Weight: 60.7 kg Body Mass Index (BMI) 22.3 ABG / Lab / Microbiology Data 11/30/24 05:45 12/01/24 14:45 Laboratory: Laboratory Results - last 24 hr 11/30/24 16:26: POC Glucose 121 H 12/01/24 14:45: Sodium 127 L, Potassium 4.7, Chloride Direct 91 L, Carbon Dioxide 22.7, Anion Gap 13, BUN 31 H, Creatinine 0.92, Estim Creat Clear Calc 39.50, Est GFR (MDRD) Non-Af 61, BUN/Creatinine Ratio 34.1 H, Glucose 147 H, Calcium 9.2 Microbiology: Microbiology 11/29/24 14:20 Mucosa - Nose SARS-CoV-2, Influenza & RSV (PCR) - Final D/C Instructions Discharge Diet: No restrictions Weight Bearing Status: Full weight bearing DC O2, CPAP, BIPAP Needs PSN CPAP & BiPAP: BiPAP & CPAP Settings per PSN Mode BiPAP 11/29/24 23:33 Bipap Delivery Device Face Mask 11/29/24 23:33 BiPAP Inspiratory Pressure 12 11/29/24 23:33 BiPAP Expiratory Pressure 6 11/29/24 23:33 BiPAP Rate 14 11/29/24 23:33 Fraction of Inspired Oxygen ( 30 11/30/24 06:00 FIO2) Home O2 Discharge instructions: No Meaningful Use Info Meaningful Use Meaningful Use Diagnoses (Choose all that apply): CHF CHF SAVANNAH/ARB ordered at discharge?: Yes Documented LVEF (%): 20 Ischemic Stroke Statin Dosing Therapy Reference: STATIN DOSE THERAPY REFERENCE: * Patients > 75 years receive moderate or high dose statin therapy. * Patients 75 years or YOUNGER should receive HIGH intensity statin dose unless contraindicated. You will be required to document reason for non-treatment if statin daily dose does not meet guidelines. HIGH DOSE STATIN THERAPY DAILY Atorvastatin > than or = to 40 mg Rosuvastatin > than or = to 20 mg Amlodipine + Atorvastatin > than or = to 2.5/40 mg Ezetimibe + Simvastatin 10/80 mg Simvastatin 80mg Discharge Plan Admission Admit Date/Time: 11/29/24 13:55 Primary Reason for Your Visit: Acute congestive heart failure, COPD Attending Provider: Donal Huang Primary Care Provider: Alberto Herr Consulting Providers: Jaime Vela Discharge Orders/Prescriptions Prescriptions: New furosemide [Lasix] 40 mg tablet 40 mg PO BID Qty: 60 0RF prednisone 20 mg Tablet 40 mg PO BREAKFAST Qty: 14 0RF Rx Instructions: Start on 12/02/2024 Continued pantoprazole 20 mg tablet,delayed release (DR/EC) 20 mg PO DAILY hydrocodone-acetaminophen 5-325 mg tablet 1 tab PO TID PRN (Reason: pain) Patient Comments: TAKE 1/2 TO 1 TAB BY MOUTH THREE TIMES A DAY NEEDED FOR PAIN albuterol sulfate 90 mcg/actuation HFA aerosol inhaler 2 puff inhalation Q4 PRN (Reason: wheezing) Trelegy Ellipta 100-62.5-25 mcg blister with device 1 ea inhalation QDAY dapagliflozin propanediol [Farxiga] 10 mg tablet 10 mg PO QDAY Qty: 90 3RF sacubitril-valsartan [Entresto] 49-51 mg tablet 1 tab PO BID Qty: 180 3RF isosorbide mononitrate 60 mg tablet extended release 24 hr 60 mg PO QDAY Qty: 90 3RF aspirin 81 MG tablet 81 mg PO DAILY@0800 montelukast 10 MG tablet 10 mg PO DAILY loratadine 10 MG tablet 10 mg PO DAILY multivitamin with folic acid 1 TABLET tablet 1 tab PO DAILY calcium carbonate-vit D3-min [Caltrate 600-D Plus Minerals] 2 tab PO DAILY cholecalciferol (vitamin D3) 10 mcg (400 unit) tablet,chewable 10 mcg PO DAILY desoximetasone 0.25 % cream 1 applic topical DAILY PRN (Reason: skin irritation) atorvastatin 40 mg tablet 40 mg PO DAILY carvedilol 12.5 mg tablet 12.5 mg PO BID Qty: 180 4RF potassium chloride 20 mEq tablet extended release 20 meq PO DAILY Qty: 90 3RF nitroglycerin 0.4 mg tablet, sublingual See Rx Instructions .ROUTE .COMPLEX Qty: 25 3RF Dose Instruction: 0.4 MG SUBLINGUAL EVERY 5-15M NEEDED FOR CHEST PAIN Rx Instructions: 0.4 MG SUBLINGUAL EVERY 5-15M NEEDED FOR CHEST PAIN Discontinued furosemide [Lasix] 40 mg tablet 40 mg PO DAILY Qty: 90 3RF Referrals / Follow Up: Alberto Herr MD [Primary Care Provider] - Within 2 Weeks Disposition Disposition (needs filled in before D/C Order can be placed): Home Health Service Charges/Coding Visit Charges Inpatient E&M: 93727 Disch Hosp >30min
--- OUTSIDE RECORDS SUMMARY | 2025-07-26 10:13 | XMS RPT_ITS ---
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 Machine Attendant Name Role Phone ALBERTO RUANO Primary Care Physician Unava ilable ALBERTO RUANO Unavailable Unavailable ALBERTO RUANO Attending Physician ALBERTO Schreiber Primary Care Physician Unava ilable BINDU, ALBERTO Rhoades Attending Physician ALBERTO Schreiber Primary Care Physician Unava ilable PROBLEMS DATE TYPE CONDITION / CODE ATTENDING STATUS [facility] 01/22/2025 Active Chronic heart fa ilure with reduced ejection fraction (HFrEF, <= 40%) (HCC) / I50.22(ICD-10) NA Active [facility] 07/08/2017 Active Other hyperlipid emia / E78.49(ICD-10) NA Active [facility] 04/03/2024 Active Chronic hyponatr emia / E87.1(ICD-10) ALBERTO RUANO Active [facility] 01/02/2022 Active Atherosclerosis of [place] coronary artery of [place] heart with stable angina pectoris / I25.118(ICD-10) ALBERTO RUANO Active [facility] 08/01/2021 Active 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(ICD-10) ALBERTO RUANO Active [facility] 07/08/2017 Active Non-ischemic cardiomyopathy (HCC) / I42.8(ICD-10) ALBERTO RUANO Active [facility] 07/26/2025 Active Encounter for immunization / Z23(ICD-10) ALBERTO RUANO Active [facility] 01/22/2025 Active Vertigo / R42(ICD-10) ALBERTO JAUREGUI Active [facility] 01/22/2025 Active Congestive heart failure, unspecified HF chronicity, unspecified heart failure type (HCC) / I50.9(ICD-10) ALBERTO RUANO Active [facility] 05/17/2013 Active Insomnia due to medical condition / G47.01(ICD-10) ALBERTO RUANO Active [facility] 06/09/2005 Active Gastroesophageal reflux disease, unspecified whether esophagitis present / K21.9(ICD-10) ALBERTO RUANO Active [facility] 01/22/2025 Active Medicare annual wellness visit, subsequent / Z00.00(ICD-10) ALBERTO RUANO Active [facility] 01/22/2025 Active Screening for de pression / Z13.31(ICD-10) ALBERTO RUANO Active [facility] 01/22/2025 Active Encounter for nc reening examination for other mental health and behavioral disorders / Z13.39(ICD-10) ALBERTO RUANO Active [facility] 01/22/2025 Active Chronic obstruct jesusita pulmonary disease, unspecified COPD type (HCC) / J44.9(ICD-10) ALBERTO RUANO Active [facility] RESULTS PROGRESS Observed: 01/15/2026 10:27 AM Status: COMPLETED Source: [facility] HNO ID: [id number] Author: CHARLIE WATSON, ? Service: ? Author Type: Population Health Navigator Type: Progress Notes Filed: 01/15/2026 10:28 Note Text: POPULATION HEALTH NAVIGATION OUTREACH Action/FYI HCC review Reason for Outreach Care Gap/HCC or Scheduling Wellness Visits Care Gaps due: N/A Patient Contacted: Unable or unnecessary to reach patient: HCC related Updated appointment notes Navigation Signature: Charlie Watson January 15, 2026 10:27 AM ELVATODURAN Observed: 01/15/2026 12:00 AM Status: COMPLETED Source: [facility] Patient Outreach (NETNAV) JEFF,NANO M ([id number]) 1940 F Date Time Provider Department 01/15/26 CHARLIE WATSON During your visit today, we recorded the following information about you: Charlie Watson 01/15/2026 10:28 AM Signed POPULATION HEALTH NAVIGATION OUTREACH Action/FYI HCC review Reason for Outreach Care Gap/HCC or Scheduling Wellness Visits Care Gaps due: N/A Patient Contacted: Unable or unnecessary to reach patient: HCC related Updated appointment notes Navigation Signature: Charlie Watson January 15, 2026 10:27 AM Allergies As of Date: 01/15/2026 Noted Allergy Reaction ALTACE (RAMIPRIL) 12/06/2012 14 - Other: See Comments Comments: Cough BACTRIM (SULFAMETHOXAZOLE-TRIMETH*01/22/2011 8 - GI Upset Comments: Pt having GI upset and stomach pain LATEX 04/17/2009 9 - Itching Comments: Blisters RELAFEN (NABUMETONE) 06/09/2005 8 - GI Upset Date Reviewed: 07/26/2025 Reviewed by: Jannie Monahan LPN - Fully Assessed Reason for Visit: Population Health Navigation Outreach [3910] Cmt: Shu Rendon Prescriptions as of 01/15/2026 * furosemide (LASIX) 40 mg tablet Take 1 tablet by mouth two times a day. * pantoprazole DR (PROTONIX) 20 mg tablet Take 1 tablet by mouth daily before breakfast. Take on empty stomach, 1/2 hr before meal. * sacubitril-valsartan (ENTRESTO) 49-51 mg tablet Take 1 tablet by mouth two times a day. * isosorbide mononitrate ER (IMDUR) 60 mg 24 hr tablet Take 1 tablet by mouth once daily. * dapagliflozin propanediol (FARXIGA) 10 mg tablet Take 1 tablet by mouth daily with breakfast. * meclizine (ANTIVERT) 25 mg tab Take 1 tablet by mouth every 6 hours as needed (for dizziness.). * montelukast (SINGULAIR) 10 mg tablet Take 1 tablet by mouth once daily. * TRELEGY ELLIPTA 100-62.5-25 mcg inhalation powder inhale 1 puff by mouth and INTO THE LUNGS once daily * albuterol (PROVENTIL) 2.5 mg /3 mL (0.083 %) nebulizer solution Use 3 mL via nebulizer every 4 hours as needed for wheezing/shortness of breath. DX: ICD9: 493.00, ICD10: J45.909 * fluticasone (FLONASE) 50 mcg/actuation nasal spray Use 1 Delaplaine in each nostril once daily. * albuterol HFA (PROVENTIL HFA, VENTOLIN HFA) 90 mcg/actuation inhaler Inhale 2 Puffs as instructed. * loratadine (CLARITIN) 10 mg tablet TAKE 1 TABLET BY MOUTH EVERY DAY NEEDED FOR ALLERGIES * nitroglycerin sublingual (NITROSTAT) 0.4 mg SL tablet Dissolve 1 tablet under the tongue. DISSOLVE ONE(1) TABLET UNDER THE TOUNGUE NEEDED FOR CHEST PAIN,EVERY 5 MIN X3 * carvedilol (COREG) 12.5 mg tablet Take 1 tablet by mouth twice daily. * atorvastatin (LIPITOR) 40 mg tablet Take 1 tablet by mouth once daily. * desoximetasone (TOPICORT) 0.25 % cream Apply 1 application to affected area once daily as needed (Apply sparingly to neck, face. Avoid eyes and mouth.). * CALCIUM CARBONATE (CALTRATE 600 ORAL) Take 2 tablets by mouth once daily. * MULTIVIT WITH CALCIUM,IRON,MIN (MULTIPLE VITAMIN, WOMENS ORAL) Take 1 capsule by mouth once daily. * cholecalciferol, Vitamin D3, 400 unit Tab Take 1 tablet by mouth once daily. * FISH XAU-CFERL-8-COENZYME Q10 1,900 MG-640 MG-50 MG/2.5 G ORAL PACKET Take one(1) tablet daily. Problem List As Of Date 01/15/2026 Noted Resolved Extrinsic asthma [J45.909] 06/09/2005 08/01/2021 Generalized osteoarthritis [M15.9] 06/09/2005 Osteoporotic compression fracture of spine with*07/13/2017 Allergic rhinitis [J30.9] 06/09/2005 ESOPHAGEAL REFLUX [K21.9] 06/09/2005 Non-ischemic cardiomyopathy (HCC) [I42.8] 08/04/2005 Other hyperlipidemia [E78.49] 08/04/2005 Bronchiectasis without acute exacerbation (HCC)*08/18/2006 01/06/2018 BENIGN NEOPLASM LG BOWEL [D12.6] 04/10/2008 Personal History of Colonic Polyps [Z86.0100] 07/16/2008 06/20/2010 Essential hypertension [I10] 08/16/2008 Screening for malignant neoplasm of the cervix *08/28/2008 01/05/2012 Osteoarthritis, knee [M17.9] 06/12/2009 01/05/2012 Postmenopausal atrophic vaginitis [N95.2] 10/02/2009 01/22/2025 Female stress incontinence [N39.3] 10/02/2009 03/06/2015 Arthritis of knee, degenerative [M17.9] 11/19/2011 Uterine prolapse without mention of vaginal wal*12/21/2011 03/06/2015 Degeneration of intervertebral disc [LXP9202] 03/06/2015 Personal history of renal artery stenosis [Z86.*08/23/2009 03/06/2015 Ganglion cyst [M67.40] 07/26/2012 05/17/2013 Occipital neuralgia [M54.81] 05/17/2013 01/05/2017 Lumbago [M54.50] 05/17/2013 Insomnia [G47.00] 05/17/2013 Emphysema of lung (HCC) [J43.9] 03/05/2015 LBBB (left bundle branch block) [I44.7] 03/05/2015 Thoracic or lumbosacral neuritis or radiculitis*03/07/2015 01/05/2017 Special screening for malignant neoplasms, colo*05/02/2015 05/02/2015 Atherosclerosis of [place] coronary artery of [place]*07/03/2016 Bilateral carotid artery disease (HCC) [I77.9] 07/03/2016 Asthma-COPD overlap syndrome (HCC) [J44.89] 08/01/2021 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] 08/16/2023 01/22/2025 Chronic hyponatremia [E87.1] 07/01/2011 Chronic heart failure with reduced ejection fra*01/22/2025 Vertigo [R42] 01/22/2025 Encounter Status:Closed by CHARLIE WATSON on 01/15/26 COMP METAB 2000 PNL SERPL Collected: 2:17 PM Status: F [facility] Order Comment: Specimen Type : BLOOD SPECIMEN Ordering Facility: [facility] Address: [address], [place] [address] TYPE CODE TESTS RESULT OUT OF RANGE REFERENCE UNITS LAB 2885-2(LOINC) Prot SerPl-mCnc 7.1 6.3-8.0 g/dL LAB 1751-7(LOINC) Albumin SerPl-mCnc 4.6 3.9-4.9 g/dL LAB 91744-5(LOINC) Calcium SerPl-mCnc 9.3 8.5-10.2 mg/dL LAB 1975-2(LOINC) Bilirub SerPl-mCnc 0.7 0.2-1.3 mg/dL LAB 6768-6(LOINC) ALP SerPl-cCnc 45 34-123 U/L LAB 1920-8(LOINC) AST SerPl-cCnc 27 13-35 U/L LAB 1742-6(LOINC) ALT SerPl-cCnc 18 7-38 U/L LAB 2345-7(LOINC) Glucose SerPl-mCnc 98 74-99 mg/dL Result Comment: The [place] [employer] (ADA) provides guidance for cutoff values for fasting glucose and random glucose. The ADA defines fasting as no caloric intake for at least 8 hours. Fasting plasma glucose results between 100 to 125 mg/dL indicate increased risk for diabetes (prediabetes). Fasting plasma glucose results greater than or equal to 126 mg/dL meet the criteria for diagnosis of diabetes. In the absence of unequivocal hyperglycemia, results should be confirmed by repeat testing. In a patient with classic symptoms of hyperglycemia or hyperglycemic crisis, random plasma glucose results greater than or equal to 200 mg/dL meet the criteria for diagnosis of diabetes. Reference: Standards of Medical Care in Diabetes 2016, [place] [employer]. Diabetes Care. 2016.39(Suppl 1). LAB 3094-0(LOINC) BUN SerPl-mCnc 19 7-21 mg/dL LAB 2160-0(LOINC) Creat SerPl-mCnc 0.87 0.58-0.96 mg/dL LAB 2951-2(LOINC) Sodium SerPl-sCnc 134 Low 136-144 mmol/L LAB 2823-3(LOINC) Potassium SerPl-sCnc 4.1 3.7-5.1 mmol/L LAB 2075-0(LOINC) Chloride SerPl-sCnc 96 Low 98-107 mmol/L LAB 2027-(LOINC) CO2 SerPl-sCnc 25 22-30 mmol/L LAB 59662-1(LOINC) Anion Gap SerPl-sCnc 13 8-15 mmol/L LAB 83975-8(LOINC) eGFRcr SerPlBld CKD-EPI 2020 65 >=60 mL/min/1. 73m??? Result Comment: Estimated Gl omerular Filtration Rate (eGFR) is calculated using the 2020 CKD-EPI creatinine equation. This equation utilizes serum creatinine, sex, and age as parameters. The creatinine assay has traceable calibration to isotope dilution-mass spectrometry. Refer to KDIGO guidelines for clinical interpretation. In patients with unstable renal function, e.g. those with acute kidney injury, the eGFR may not accurately reflect actual GFR. Performed By: [facility] CLIA [id number] [address] [place] [address] [place] LIPID PANEL, NONFASTING Collected: 07/26/2025 2:17 PM Status: F Source: [facility] Order Comment: Specimen Type : BLOOD SPECIMEN Ordering Facility: [facility] Address: [address] [place] [address] TYPE CODE TESTS RESULT OUT OF RANGE REFERENCE UNITS LAB CHOLNF TOTAL CHOLESTEROL NF 122 <200 mg/dL Result Comment: <200 mg/dL, Desirable 200-239 mg/dL, Borderline high >239 mg/dL, High LAB TRIGNF TRIGLYCERIDES, NF 99 <150 mg/dL Result Comment: <150 mg/dL, Normal 150-199 mg/dL, Borderline high 200-499 mg/dL, High >499 mg/dL, Very high LAB HDLNF HDL CHOLESTEROL, NF 52 >39 mg/dL Result Comment: 40-59 mg/dL, Acceptable >59 mg/dL, High: Negative risk factor for coronary heart disease <40 mg/dL, Low: Positive risk factor for coronary heart disease LAB LDLNF LDL CHOLESTEROL CALCULATED, NF 52 <100 mg/dL Result Comment: <100 mg/dL, Optimal 100-129 mg/dL, Near optimal/above optimal 130-159 mg/dL, Borderline high 160-189 mg/dL, High >189 mg/dL, Very high Secondary prevention optimal LDL Cholesterol levels are recommended to be <70 mg/dL LDL cholesterol is calculated using the Fajardo-NIH equation. LAB NOHDLN NON HDL CHOL, NF 70 <130 mg/dL Result Comment: <130 mg/dL, Optimal 130-159 mg/dL, Near optimal/above optimal 160-189 mg/dL, Borderline high 190-219 mg/dL, High >219 mg/dL, Very high Secondary prevention optimal non HDL Cholesterol levels are recommended to be <100 mg/dL LAB VLDLNF VLDL CHOLESTEROL, NF 14 <30 mg/dL LAB TCHDLN T CHOL/HDL RATIO NF 2.35 <5.10 mg/dL LAB LDLHDN LDL/HDL RATIO, NF 1.00 <2.54 mg/dL Result Comment: Reference: 1. National Cholesterol Education Program ATP III Guideline At-A-Glance Quick Desk Reference: National Heart, Lung, and Blood [place]. National Institutes of Health. 2001: NIH Publication No. 01-3305. 2. An International Atherosclerosis Society position paper: global recommendations for the management of dyslipidemia: executive summary, Atherosclerosis. 2014: 232(2):410-413. Performed By: [facility] CLIA [id number] [address] [place] [address] [place] CBC PNL BLD AUTO Collected: 5 2:17 PM Status: F Source: [facility] Order Comment: Specimen Type : BLOOD SPECIMEN Ordering Facility: [facility] Address: [address] [place] [address] TYPE CODE TESTS RESULT OUT OF RANGE REFERENCE UNITS LAB 6690-2([facility]) WBC # Bld Auto 6.95 3.70-11.00 k/uL LAB 789-8([facility]) RBC # Bld Auto 3.99 3.90-5.20 m/uL LAB 718-7([facility]) Hgb Bld-mCnc 13.2 11.5-15.5 g/dL LAB 4544-3([facility]) Hct VFr Bld Auto 39.6 36.0-46.0 % LAB 787-2(LOINC) MCV RBC Auto 99.2 80.0-100.0 fL LAB 785-6(LOINC) MCH RBC Qn Auto 33.1 26.0-34.0 pg LAB 786-4([facility]) MCHC RBC Auto-mCnc 33.3 30.5-36.0 g/dL LAB 12081-1(LOINC) RDW RBC-Rto 13.0 11.5-15.0 % LAB 777-3(LOINC) Platelet # Bld Auto 192 150-400 k/uL LAB 48408-3(LOINC) PMV Bld Auto 9.5 9.0-12.7 fL LAB 771-6(LOINC) nRBC # Bld Auto <0.01 <0.01 k/uL Performed By: [facility] CLIA [id number] [address] [place] PROGRESS Observed: 07/26/2025 1:48 PM Status: COMPLETED Source: [facility] HNO ID: [id number] Author: ALBERTO RUANO MD Service: ? Author Type: Physician Type: Progress Notes Filed: 07/26/2025 15:45 Note Text: En Aguilar is a 85 year old female. She was doing well. She was apparently taking furosemide 40 mg BID based on a previous hospitalization. [facility] and was 40 mg daily on medication reconciliation. Cardiology report from this year was not on file. Her hypertension and COPD were controlled. Review of Systems Constitutional: Negative for fatigue and fever. HENT: Negative for congestion. Respiratory: Negative for cough, shortness of breath and wheezing. Cardiovascular: Negative for chest pain, palpitations and leg swelling. Gastrointestinal: Negative for diarrhea, nausea and vomiting. Genitourinary: Negative for dysuria. ACTIVE PROBLEM LIST Generalized Osteoarthritis Osteoporotic Compression Fracture of Spine With Routine Healing Allergic Rhinitis Esophageal Reflux Non-Ischemic Cardiomyopathy (Hcc) Other Hyperlipidemia Benign Neoplasm of Colon Essential Hypertension Arthritis of Knee, Degenerative Lumbago Insomnia Emphysema of Lung ([facility]) Lbbb (Left Bundle Branch Block) Atherosclerosis of [place] Coronary Artery of [place] Heart With Stable Angina Pectoris Bilateral Carotid Artery Disease Asthma-Copd Overlap Syndrome ([facility]) Chronic Hyponatremia Chronic Heart Failure With Reduced Ejection Fraction (Hfref, <= 40%) ([facility]) Vertigo Current Outpatient Medications Medication Sig pantoprazole DR (PROTONIX) 20 mg tablet Take 1 tablet by mouth daily before breakfast. Take on empty stomach, 1/2 hr before meal. sacubitril-valsartan (ENTRESTO) 49-51 mg tablet Take 1 tablet by mouth two times a day. isosorbide mononitrate ER (IMDUR) 60 mg 24 hr tablet Take 1 tablet by mouth once daily. dapagliflozin propanediol (FARXIGA) 10 mg tablet Take 1 tablet by mouth daily with breakfast. meclizine (ANTIVERT) 25 mg tab Take 1 tablet by mouth every 6 hours as needed (for dizziness.). montelukast (SINGULAIR) 10 mg tablet Take 1 tablet by mouth once daily. TRELEGY ELLIPTA 100-62.5-25 mcg inhalation powder inhale 1 puff by mouth and INTO THE LUNGS once daily albuterol (PROVENTIL) 2.5 mg /3 mL (0.083 %) nebulizer solution Use 3 mL via nebulizer every 4 hours as needed for wheezing/shortness of breath. DX: ICD9: 493.00, ICD10: J45.909 fluticasone (FLONASE) 50 mcg/actuation nasal spray Use 1 Delaplaine in each nostril once daily. albuterol HFA (PROVENTIL HFA, VENTOLIN HFA) 90 mcg/actuation inhaler Inhale 2 Puffs as instructed. loratadine (CLARITIN) 10 mg tablet TAKE 1 TABLET BY MOUTH EVERY DAY NEEDED FOR ALLERGIES nitroglycerin sublingual (NITROSTAT) 0.4 mg SL tablet Dissolve 1 tablet under the tongue. DISSOLVE ONE(1) TABLET UNDER THE TOUNGUE NEEDED FOR CHEST PAIN,EVERY 5 MIN X3 carvedilol (COREG) 12.5 mg tablet Take 1 tablet by mouth twice daily. atorvastatin (LIPITOR) 40 mg tablet Take 1 tablet by mouth once daily. desoximetasone (TOPICORT) 0.25 % cream Apply 1 application to affected area once daily as needed (Apply sparingly to neck, face. Avoid eyes and mouth.). CALCIUM CARBONATE (CALTRATE 600 ORAL) Take 2 tablets by mouth once daily. MULTIVIT WITH CALCIUM,IRON,MIN (MULTIPLE VITAMIN, WOMENS ORAL) Take 1 capsule by mouth once daily. cholecalciferol, Vitamin D3, 400 unit Tab Take 1 tablet by mouth once daily. FISH PMU-KRDUR-3-COENZYME Q10 1,900 MG-640 MG-50 MG/2.5 G ORAL PACKET Take one(1) tablet daily. furosemide (LASIX) 40 mg tablet Take 1 tablet by mouth two times a day. No current facility-administered medications for this visit. Objective BP 102/66 (BP Site: Left Arm, BP Position: Sitting, BP Cuff Size: Large Adult) Pulse 60 Temp 36.3 ?C (97.3 ?F) (Temporal) Wt 62.7 kg (138 lb 3.7 oz) SpO2 98% BMI 25.28 kg/m? Physical Exam Constitutional: General: She is not in acute distress. Appearance: She is not ill-appearing. Cardiovascular: Rate and Rhythm: Normal rate and regular rhythm. Heart sounds: S1 normal and S2 normal. No murmur heard. Comments: S3 Pulmonary: Breath sounds: Normal breath sounds. No wheezing or rales. Abdominal: General: There is no distension. Tenderness: There is no abdominal tenderness. Musculoskeletal: Right lower leg: No edema. Left lower leg: No edema. Neurological: Mental Status: She is alert. Gait: Gait normal. ASSESSMENT/PLAN: 1. 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, <= 40%) (HCC) - ICD9: 428.22, ICD10: I50.22 (primary diagnosis) - HFrEF <=40 - Compensated - Continue current medications - FUROSEMIDE 40 MG TABLET. Take one(1) tablet two(2) times daily. She was instructed to have the prescription clarified from the [facility]. - COMPLETE BLOOD COUNT - COMPREHENSIVE METABOLIC PANEL 2. Encounter for immunization - ICD9: V03.89, ICD10: Z23 - INFLUENZA VACCINE, PRSV FREE, AGE 65+ YR, HIGH DOSE, TRIVALENT (FLUZONE HIGH-DOSE) - JotSpot COVID-19 VACCINE AGE 12+ YR (COMIRNATY) 3. Chronic hyponatremia - ICD9: 276.1, ICD10: E87.1 Recheck. 4. Asthma-COPD overlap syndrome (HCC) - ICD9: 493.20, ICD10: J44.89 - Symptoms controlled - Continue current medications 5. Atherosclerosis of [place] coronary artery of [place] heart with stable angina pectoris - ICD9: 414.01, 413.9, ICD10: I25.118 - Stable. 6. Non-ischemic cardiomyopathy (HCC) - ICD9: 425.4, ICD10: I42.8 - Stable. 7. Other hyperlipidemia - ICD9: 272.4, ICD10: E78.49 - Do labs today. - LIPID PANEL, NONFASTING Alberto Rauno MD CNOV Observed: 07/26/2025 1:40 PM Status: COMPLETED Source: [facility] Office Visit (INTMWS) NANO AGUILAR ([id number]) 1940 F Date Time Provider Department 07/26/25 1:40 PM ALBERTO RUANO INTMWS During your visit today, we recorded the following information about you: Temperature Pulse Blood pressure Weight 97.3 degrees 60/minute 102/66 62.7 kg Alberto Ruano MD 07/26/2025 3:45 PM Signed Subjective Nano Hughes Jeff is a 85 year old female. She was doing well. She was apparently taking furosemide 40 mg BID based on a previous hospitalization. Prescription was coming [facility] and was 40 mg daily on medication reconciliation. Cardiology report from this year was not on file. Her hypertension and COPD were controlled. Review of Systems Constitutional: Negative for fatigue and fever. HENT: Negative for congestion. Respiratory: Negative for cough, shortness of breath and wheezing. Cardiovascular: Negative for chest pain, palpitations and leg swelling. Gastrointestinal: Negative for diarrhea, nausea and vomiting. Genitourinary: Negative for dysuria. ACTIVE PROBLEM LIST Generalized Osteoarthritis Osteoporotic Compression Fracture of Spine With Routine Healing Allergic Rhinitis Esophageal Reflux Non-Ischemic Cardiomyopathy (Hcc) Other Hyperlipidemia Benign Neoplasm of Colon Essential Hypertension Arthritis of Knee, Degenerative Lumbago Insomnia Emphysema of Lung (Hcc) Lbbb (Left Bundle Branch Block) Atherosclerosis of [place] Coronary Artery of [place] Heart With Stable Angina Pectoris Bilateral Carotid Artery Disease Asthma-Copd Overlap Syndrome (Hcc) Chronic Hyponatremia Chronic Heart Failure With Reduced Ejection Fraction (Hfref, <= 40%) (Hcc) Vertigo Current Outpatient Medications Medication Sig pantoprazole DR (PROTONIX) 20 mg tablet Take 1 tablet by mouth daily before breakfast. Take on empty stomach, 1/2 hr before meal. sacubitril-valsartan (ENTRESTO) 49-51 mg tablet Take 1 tablet by mouth two times a day. isosorbide mononitrate ER (IMDUR) 60 mg 24 hr tablet Take 1 tablet by mouth once daily. dapagliflozin propanediol (FARXIGA) 10 mg tablet Take 1 tablet by mouth daily with breakfast. meclizine (ANTIVERT) 25 mg tab Take 1 tablet by mouth every 6 hours as needed (for dizziness.). montelukast (SINGULAIR) 10 mg tablet Take 1 tablet by mouth once daily. TRELEGY ELLIPTA 100-62.5-25 mcg inhalation powder inhale 1 puff by mouth and INTO THE LUNGS once daily albuterol (PROVENTIL) 2.5 mg /3 mL (0.083 %) nebulizer solution Use 3 mL via nebulizer every 4 hours as needed for wheezing/shortness of breath. DX: ICD9: 493.00, ICD10: J45.909 fluticasone (FLONASE) 50 mcg/actuation nasal spray Use 1 Delaplaine in each nostril once daily. albuterol HFA (PROVENTIL HFA, VENTOLIN HFA) 90 mcg/actuation inhaler Inhale 2 Puffs as instructed. loratadine (CLARITIN) 10 mg tablet TAKE 1 TABLET BY MOUTH EVERY DAY NEEDED FOR ALLERGIES nitroglycerin sublingual (NITROSTAT) 0.4 mg SL tablet Dissolve 1 tablet under the tongue. DISSOLVE ONE(1) TABLET UNDER THE TOUNGUE NEEDED FOR CHEST PAIN,EVERY 5 MIN X3 carvedilol (COREG) 12.5 mg tablet Take 1 tablet by mouth twice daily. atorvastatin (LIPITOR) 40 mg tablet Take 1 tablet by mouth once daily. desoximetasone (TOPICORT) 0.25 % cream Apply 1 application to affected area once daily as needed (Apply sparingly to neck, face. Avoid eyes and mouth.). CALCIUM CARBONATE (CALTRATE 600 ORAL) Take 2 tablets by mouth once daily. MULTIVIT WITH CALCIUM,IRON,MIN (MULTIPLE VITAMIN, WOMENS ORAL) Take 1 capsule by mouth once daily. cholecalciferol, Vitamin D3, 400 unit Tab Take 1 tablet by mouth once daily. FISH KFK-QIJCM-8-COENZYME Q10 1,900 MG-640 MG-50 MG/2.5 G ORAL PACKET Take one(1) tablet daily. furosemide (LASIX) 40 mg tablet Take 1 tablet by mouth two times a day. No current facility-administered medications for this visit. Objective BP 102/66 (BP Site: Left Arm, BP Position: Sitting, BP Cuff Size: Large Adult) Pulse 60 Temp 36.3 ?C (97.3 ?F) (Temporal) Wt 62.7 kg (138 lb 3.7 oz) SpO2 98% BMI 25.28 kg/m? Physical Exam Constitutional: General: She is not in acute distress. Appearance: She is not ill-appearing. Cardiovascular: Rate and Rhythm: Normal rate and regular rhythm. Heart sounds: S1 normal and S2 normal. No murmur heard. Comments: S3 Pulmonary: Breath sounds: Normal breath sounds. No wheezing or rales. Abdominal: General: There is no distension. Tenderness: There is no abdominal tenderness. Musculoskeletal: Right lower leg: No edema. Left lower leg: No edema. Neurological: Mental Status: She is alert. Gait: Gait normal. ASSESSMENT/PLAN: 1. 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, <= 40%) (HCC) - ICD9: 428.22, ICD10: I50.22 (primary diagnosis) - HFrEF <=40 - Compensated - Continue current medications - FUROSEMIDE 40 MG TABLET. Take one(1) tablet two(2) times daily. She was instructed to have the [facility] - COMPLETE BLOOD COUNT - COMPREHENSIVE METABOLIC PANEL 2. Encounter for immunization - ICD9: V03.89, ICD10: Z23 - INFLUENZA VACCINE, PRSV FREE, AGE 65+ YR, HIGH DOSE, TRIVALENT (FLUZONE HIGH-DOSE) - [employer] COVID-19 VACCINE AGE 12+ YR ([place]NATY) 3. Chronic hyponatremia - ICD9: 276.1, ICD10: E87.1 Recheck. 4. Asthma-COPD overlap syndrome (HCC) - ICD9: 493.20, ICD10: J44.89 - Symptoms controlled - Continue current medications 5. Atherosclerosis of [place] coronary artery of [place] heart with stable angina pectoris - ICD9: 414.01, 413.9, ICD10: I25.118 - Stable. 6. Non-ischemic cardiomyopathy (HCC) - ICD9: 425.4, ICD10: I42.8 - Stable. 7. Other hyperlipidemia - ICD9: 272.4, ICD10: E78.49 - Do labs today. - LIPID PANEL, NONFASTING Alberto Ruano MD Allergies As of Date: 07/26/2025 Noted Allergy Reaction ALTSAVANNAH (RAMIPRIL) 12/06/2012 14 - Other: See Comments Comments: Cough BACTRIM (SULFAMETHOXAZOLE-TRIMETH*01/22/2011 8 - GI Upset Comments: Pt having GI upset and stomach pain LATEX 04/17/2009 9 - Itching Comments: Blisters RELAFEN (NABUMETONE) 06/09/2005 8 - GI Upset Date Reviewed: 07/26/2025 Reviewed by: Jannie Monahan LPN - Fully Assessed Reason for Visit: F/U 6 months [1177] Primary Visit Diagnosis: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, <= 40%) (HCC) [I50.22] Other Visit Diagnoses:Encounter for immunization [Z23] Chronic hyponatremia [E87.1] 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 [I25.118] Non-ischemic cardiomyopathy (HCC) [I42.8] Other hyperlipidemia [E78.49] Order(s):INFLUENZA VACCINE, PRSV FREE, AGE 65+ YR, HIGH DOSE, TRIVALENT (FLUZONE HIGH-DOSE) [[id number]] Order #: [id number] [employer] COVID-19 VACCINE AGE 12+ YR (COMIRNATY) [[id number]] Order #: [id number] COMPLETE BLOOD COUNT [SQCBC] Order #: [id number] FUTURE COMPREHENSIVE METABOLIC PANEL [SQCMP] Order #: [id number] FUTURE LIPID PANEL, NONFASTING [SQLIPNF] Order #: [id number] FUTURE FOLLOW UP IN PRIMARY CARE (FAMILY AND INTERNAL MEDICINE) [[id number]] Order #: [id number]: 1 FUTURE Prescriptions as of 07/26/2025 - furosemide (LASIX) 40 mg tablet Take 1 tablet by mouth two times a day. - pantoprazole DR (PROTONIX) 20 mg tablet Take 1 tablet by mouth daily before breakfast. Take on empty stomach, 1/2 hr before meal. - sacubitril-valsartan (ENTRESTO) 49-51 mg tablet Take 1 tablet by mouth two times a day. - isosorbide mononitrate ER (IMDUR) 60 mg 24 hr tablet Take 1 tablet by mouth once daily. - dapagliflozin propanediol (FARXIGA) 10 mg tablet Take 1 tablet by mouth daily with breakfast. - meclizine (ANTIVERT) 25 mg tab Take 1 tablet by mouth every 6 hours as needed (for dizziness.). - montelukast (SINGULAIR) 10 mg tablet Take 1 tablet by mouth once daily. - TRELEGY ELLIPTA 100-62.5-25 mcg inhalation powder inhale 1 puff by mouth and INTO THE LUNGS once daily - albuterol (PROVENTIL) 2.5 mg /3 mL (0.083 %) nebulizer solution Use 3 mL via nebulizer every 4 hours as needed for wheezing/shortness of breath. DX: ICD9: 493.00, ICD10: J45.909 - fluticasone (FLONASE) 50 mcg/actuation nasal spray Use 1 Delaplaine in each nostril once daily. - albuterol HFA (PROVENTIL HFA, VENTOLIN HFA) 90 mcg/actuation inhaler Inhale 2 Puffs as instructed. - loratadine (CLARITIN) 10 mg tablet TAKE 1 TABLET BY MOUTH EVERY DAY NEEDED FOR ALLERGIES - nitroglycerin sublingual (NITROSTAT) 0.4 mg SL tablet Dissolve 1 tablet under the tongue. DISSOLVE ONE(1) TABLET UNDER THE TOUNGUE NEEDED FOR CHEST PAIN,EVERY 5 MIN X3 - carvedilol (COREG) 12.5 mg tablet Take 1 tablet by mouth twice daily. - atorvastatin (LIPITOR) 40 mg tablet Take 1 tablet by mouth once daily. - desoximetasone (TOPICORT) 0.25 % cream Apply 1 application to affected area once daily as needed (Apply sparingly to neck, face. Avoid eyes and mouth.). - CALCIUM CARBONATE (CALTRATE 600 ORAL) Take 2 tablets by mouth once daily. - MULTIVIT WITH CALCIUM,IRON,MIN (MULTIPLE VITAMIN, WOMENS ORAL) Take 1 capsule by mouth once daily. - cholecalciferol, Vitamin D3, 400 unit Tab Take 1 tablet by mouth once daily. - FISH IFE-LFSYU-1-COENZYME Q10 1,900 MG-640 MG-50 MG/2.5 G ORAL PACKET Take one(1) tablet daily. Problem List As Of Date 07/26/2025 Noted Resolved Extrinsic asthma [J45.909] 06/09/2005 08/01/2021 Generalized osteoarthritis [M15.9] 06/09/2005 Osteoporotic compression fracture of spine with*07/13/2017 Allergic rhinitis [J30.9] 06/09/2005 ESOPHAGEAL REFLUX [K21.9] 06/09/2005 Non-ischemic cardiomyopathy (HCC) [I42.8] 08/04/2005 Other hyperlipidemia [E78.49] 08/04/2005 Bronchiectasis without acute exacerbation (HCC)*08/18/2006 01/06/2018 BENIGN NEOPLASM LG BOWEL [D12.6] 04/10/2008 Personal History of Colonic Polyps [Z86.0100] 07/16/2008 06/20/2010 Essential hypertension [I10] 08/16/2008 Screening for malignant neoplasm of the cervix *08/28/2008 01/05/2012 Osteoarthritis, knee [M17.9] 06/12/2009 01/05/2012 Postmenopausal atrophic vaginitis [N95.2] 10/02/2009 01/22/2025 Female stress incontinence [N39.3] 10/02/2009 03/06/2015 Arthritis of knee, degenerative [M17.9] 11/19/2011 Uterine prolapse without mention of vaginal wal*12/21/2011 03/06/2015 Degeneration of intervertebral disc [NAP5816] 03/06/2015 Personal history of renal artery stenosis [Z86.*08/23/2009 03/06/2015 Ganglion cyst [M67.40] 07/26/2012 05/17/2013 Occipital neuralgia [M54.81] 05/17/2013 01/05/2017 Lumbago [M54.50] 05/17/2013 Insomnia [G47.00] 05/17/2013 Emphysema of lung (HCC) [J43.9] 03/05/2015 LBBB (left bundle branch block) [I44.7] 03/05/2015 Thoracic or lumbosacral neuritis or radiculitis*03/07/2015 01/05/2017 Special screening for malignant neoplasms, colo*05/02/2015 05/02/2015 Atherosclerosis of [place] coronary artery of [place]*07/03/2016 Bilateral carotid artery disease (HCC) [I77.9] 07/03/2016 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 Author Type: Physician Type: Progress Notes Filed: 01/22/2025 17:37 Note Text: This note was created using Imsysriter. Subjective Nano Aguilar is a 85 year old female. She was admitted for -01/14/25 for vertigo. Her troponin was elevated, but felt not to be significant. Her congestive heart failure and coronary artery disease were stable. She was taking meclizine with little relief. Dizziness lasts several minutes and most bothersome at night, causing insomnia and anxiety. Dizziness was mild during the day. Review of Systems Constitutional: Negative for fatigue and fever. Respiratory: Negative for cough, shortness of breath and wheezing. Cardiovascular: Negative for chest pain, palpitations and leg swelling. Gastrointestinal: Positive for nausea. Negative for vomiting. Neurological: Negative for syncope, facial asymmetry, weakness and headaches. Psychiatric/Behavioral: Negative for dysphoric mood. The patient is not nervous/anxious. ACTIVE PROBLEM LIST Generalized Osteoarthritis Osteoporotic Compression Fracture of Spine With Routine Healing Allergic Rhinitis Esophageal Reflux Non-Ischemic Cardiomyopathy (Hcc) Other Hyperlipidemia Benign Neoplasm of Colon Essential Hypertension Arthritis of Knee, Degenerative Lumbago Insomnia Emphysema of Lung (Hcc) Lbbb (Left Bundle Branch Block) Atherosclerosis of [place] Coronary Artery of [place] Heart With Stable Angina Pectoris Bilateral Carotid Artery Disease Asthma-Copd Overlap Syndrome (Hcc) Chronic Hyponatremia Chronic Heart Failure With Reduced Ejection Fraction (Hfref, <= 40%) (Hcc) Vertigo Social History Tobacco Use Smoking status: Former Current packs/day: 0.00 Average packs/day: 1 pack/day for 20.0 years (20.0 ttl pk-yrs) Types: Cigarettes Start date: 10/04/1964 Quit date: 10/04/1984 Years since quittin.3 Smokeless tobacco: Never Substance Use Topics Alcohol use: Yes Comment: Occasionally wine Drug use: No Current Outpatient Medications Medication Sig pantoprazole DR (PROTONIX) 20 mg tablet Take 1 tablet by mouth daily before breakfast. Take on empty stomach, 1/2 hr before meal. sacubitril-valsartan (ENTRESTO) 49-51 mg tablet Take 1 tablet by mouth two times a day. isosorbide mononitrate ER (IMDUR) 60 mg 24 hr tablet Take 1 tablet by mouth once daily. dapagliflozin propanediol (FARXIGA) 10 mg tablet Take 1 tablet by mouth daily with breakfast. meclizine (ANTIVERT) 25 mg tab Take 1 tablet by mouth every 6 hours as needed (for dizziness.). montelukast (SINGULAIR) 10 mg tablet Take 1 tablet by mouth once daily. TRELEGY ELLIPTA 100-62.5-25 mcg inhalation powder inhale 1 puff by mouth and INTO THE LUNGS once daily albuterol (PROVENTIL) 2.5 mg /3 mL (0.083 %) nebulizer solution Use 3 mL via nebulizer every 4 hours as needed for wheezing/shortness of breath. DX: ICD9: 493.00, ICD10: J45.909 fluticasone (FLONASE) 50 mcg/actuation nasal spray Use 1 [place] in each nostril once daily. albuterol HFA (PROVENTIL HFA, VENTOLIN HFA) 90 mcg/actuation inhaler Inhale 2 Puffs as instructed. loratadine (CLARITIN) 10 mg tablet TAKE 1 TABLET BY MOUTH EVERY DAY NEEDED FOR ALLERGIES nitroglycerin sublingual (NITROSTAT) 0.4 mg SL tablet Dissolve 1 tablet under the tongue. DISSOLVE ONE(1) TABLET UNDER THE TOUNGUE NEEDED FOR CHEST PAIN,EVERY 5 MIN X3 carvedilol (COREG) 12.5 mg tablet Take 1 tablet by mouth twice daily. atorvastatin (LIPITOR) 40 mg tablet Take 1 tablet by mouth once daily. desoximetasone (TOPICORT) 0.25 % cream Apply 1 application to affected area once daily as needed (Apply sparingly to neck, face. Avoid eyes and mouth.). CALCIUM CARBONATE (CALTRATE 600 ORAL) Take 2 tablets by mouth once daily. MULTIVIT WITH CALCIUM,IRON,MIN (MULTIPLE VITAMIN, WOMENS ORAL) Take 1 capsule by mouth once daily. cholecalciferol, Vitamin D3, 400 unit Tab Take 1 tablet by mouth once daily. FISH ZKY-XXOKH-8-COENZYME Q10 1,900 MG-640 MG-50 MG/2.5 G ORAL PACKET Take one(1) tablet daily. No current facility-administered medications for this visit. Objective BP 132/70 (BP Site: Left Arm, BP Position: Sitting, BP Cuff Size: Large Adult) Pulse 70 Temp 36.7 ?C (98 ?F) (Temporal) Resp 14 Ht 157.5 cm (5' 2) Wt 60.4 kg (133 lb 2.5 oz) SpO2 99% BMI 24.35 kg/m? Physical Exam Constitutional: General: She is not in acute distress. Appearance: She is not ill-appearing or diaphoretic. HENT: Head: Normocephalic. Nose: No congestion. Eyes: Extraocular Movements: Extraocular movements intact. Conjunctiva/sclera: Conjunctivae normal. Neck: Vascular: No carotid bruit. Cardiovascular: Rate and Rhythm: Normal rate and regular rhythm. Heart sounds: No murmur heard. No gallop. Pulmonary: Breath sounds: Normal breath sounds. Musculoskeletal: Right lower leg: No edema. Left lower leg: No edema. Neurological: Mental Status: She is alert. Cranial Nerves: No cranial nerve deficit, dysarthria or facial asymmetry. Sensory: Sensation is intact. Motor: Motor function is intact. No tremor or pronator drift. Coordination: Romberg sign negative. Coordination normal. Ulybmb-Yjru-Xiowgt Test normal. Rapid alternating movements normal. Gait: Gait normal. Assessment and Plan 1. Medicare annual wellness visit, subsequent - ICD9: V70.0, ICD10: Z00.00 (primary diagnosis) - See wellness visit. 2. Gastroesophageal reflux disease, unspecified whether esophagitis present - ICD9: 530.81, ICD10: K21.9 Controlled on medication. - PANTOPRAZOLE 20 MG TABLET,DELAYED RELEASE 3. Screening for depression - ICD9: V79.0, ICD10: Z13.31 - DEPRESSION SCREENING 4. Encounter for screening examination for other mental health and behavioral disorders - ICD9: V79.8, ICD10: Z13.39 - ANXIETY SCREENING 5. Chronic obstructive pulmonary disease, unspecified COPD type ([facility]) - ICD9: 496, ICD10: J44.9 Stable. Continue medications. See pulmonary. 6. Atherosclerosis of [place] coronary artery of [place] heart with stable angina pectoris - ICD9: 414.01, 413.9, ICD10: I25.118 Stable. Medication list updated. - ISOSORBIDE MONONITRATE ER 60 MG TABLET,EXTENDED RELEASE 24 HR 7. Vertigo - ICD9: 780.4, ICD10: R42 Improving. Shared medical decision making was done. Discussed medication dosage, usage, goals of therapy, and side effects. - LORAZEPAM 1 MG TABLET 8. Insomnia due to medical condition - ICD9: 327.01, ICD10: G47.01 See above. Limited use recommended. - LORAZEPAM 1 MG TABLET 9. 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, <= 40%) ([facility]) - ICD9: 428.22, ICD10: I50.22 - Compensated - Medication list updated. - ENTRESTO 49 MG-51 MG TABLET - DAPAGLIFLOZIN PROPANEDIOL 10 MG TABLET Alberto Ruano MD PROGRESS Observed: 01/22/2025 2:23 PM Status: COMPLETED Source: [facility] ID: [id number] Author: ALBERTO RUANO MD Service: ? Author Type: Physician Type: Progress Notes Filed: 01/22/2025 17:37 Note Text: Naon Aguilar is a 85 year old female here for a Medicare wellness visit. Medicare Health Risk Assessment General Health Fair Exercise: Minutes/Day 10 min Exercise: Days/Week 2 days Alcohol: Daily Use Never Alcohol: Drinks/Day Patient does not drink Alcohol: 6 or more drinks Never Feel off balance Yes Concerns: Teeth/Dentures No Concerns: Sexual function No Troubled by feelings None of the above Frequency: Eating healthy diet Nearly every day ADLs requiring help Grocery shopping; Cooking; Housework; Driving Safety precautions in home/vehicle Yes Smoke, vape, chews tobacco No Difficulty hearing Yes, I wear a hearing aid Difficulty seeing No Current Providers Specialists: I have reviewed specialist-related care of the patient in the medical record. Current care team: Patient Care Team: Alberto Ruano MD as PCP - General Brooke Cordoba, DECALER.BARBER SHOP OPERATOR as Dust Operator (Internal Medicine) Valentina Camargo MD (Pulmonary) Outside specialists seen: Edy Drew MD ([facility]) Ruth Diamond MD (Pain management) Roderick Barbosa MD (Ophthalmology) Wisam Scott MD (ENT) Medical/Family history review Reviewed and updated problem list, medical/surgical/family/social history, medications, and allergies. Opioid use review Opioid Medications (last 90 days) 12/07/2024 12/25/2024 23:59 Opioid Medications hydrocodone/acetaminophen 1 tablet TID Per pain management. ORAL (7.5-325 mg tab) -Discontinued hydrocodone/acetaminophen 1 tablet TID PRN ORAL -Rx End Details Outpatient prescription Patient-reported Anxiety/Depression screening PHQ-2 Score: 0 (Lower risk for depression) ANTOINETTE-2 Score: 0 (Lower risk for anxiety) Recommendation: no further intervention at this time Cognitive screening Mini Cog Score: 5 Cognitive screening reviewed and No further action needed (score 3-5). Functional Observation Was the patient's Timed Up AND Go test unsteady or >= 12 seconds? No Advance Care Planning Patient was not able to provide a surrogate decision maker or written advance directives Measurements BP 132/70 (BP Site: Left Arm, BP Position: Sitting, BP Cuff Size: Large Adult) Pulse 70 Temp 36.7 ?C (98 ?F) (Temporal) Resp 14 Ht 157.5 cm (5' 2) Wt 60.4 kg (133 lb 2.5 oz) SpO2 99% BMI 24.35 kg/m? Vision Screening: Follows with optometry/ophthalmology Declines visual acuity screen Assessment/Plan Medicare annual wellness visit, subsequent (Z00.00) - Counseled on healthy diet and regular exercise - Fall avoidance information provided - Personalized prevention plan provided CNOV Observed: 01/22/2025 1:40 PM Status: COMPLETED Source: [facility] Office Visit (INT[facility]) NANO AGUILAR ([id number]) 1940 F Date Time Provider Department 01/22/25 1:40 PM ALBERTO URANO IN[facility] During your visit today, we recorded the following information about you: Temperature Pulse Respiration Blood pressure 98 degrees 70/minute 14/minute 132/70 Weight Height 60.4 kg 1.575 m Alberto Ruano MD 01/22/2025 5:37 PM Signed Nano Aguilar is a 85 year old female here for a Medicare wellness visit. Medicare Health Risk Assessment General Health Fair Exercise: Minutes/Day 10 min Exercise: Days/Week 2 days Alcohol: Daily Use Never Alcohol: Drinks/Day Patient does not drink Alcohol: 6 or more drinks Never Feel off balance Yes Concerns: Teeth/Dentures No Concerns: Sexual function No Troubled by feelings None of the above Frequency: Eating healthy diet Nearly every day ADLs requiring help Grocery shopping; Cooking; Housework; Driving Safety precautions in home/vehicle Yes Smoke, vape, chews tobacco No Difficulty hearing Yes, I wear a hearing aid Difficulty seeing No Current Providers Specialists: I have reviewed specialist-related care of the patient in the medical record. Current care team: Patient Care Team: Alberto Ruano MD as PCP - General Brooke Cordoba, DECALER.BARBER SHOP OPERATOR as Dust Operator (Internal Medicine) Valentina Camargo MD (Pulmonary) Outside specialists seen: Edy Drew MD ([facility]) Ruth Diamond MD (Pain management) Roderick Barbosa MD (Ophthalmology) Wisam Scott MD (ENT) Medical/Family history review Reviewed and updated problem list, medical/surgical/family/social history, medications, and allergies. Opioid use review Opioid Medications (last 90 days) 12/07/2024 12/25/2024 23:59 Opioid Medications hydrocodone/acetaminophen 1 tablet TID Per pain management. ORAL (7.5-325 mg tab) -Discontinued hydrocodone/acetaminophen 1 tablet TID PRN ORAL -Rx End Details Outpatient prescription Patient-reported Anxiety/Depression screening PHQ-2 Score: 0 (Lower risk for depression) ANTOINETTE-2 Score: 0 (Lower risk for anxiety) Recommendation: no further intervention at this time Cognitive screening Mini Cog Score: 5 Cognitive screening reviewed and No further action needed (score 3-5). Functional Observation Was the patient's Timed Up AND Go test unsteady or >= 12 seconds? No Advance Care Planning Patient was not able to provide a surrogate decision maker or written advance directives Measurements BP 132/70 (BP Site: Left Arm, BP Position: Sitting, BP Cuff Size: Large Adult) Pulse 70 Temp 36.7 ?C (98 ?F) (Temporal) Resp 14 Ht 157.5 cm (5' 2) Wt 60.4 kg (133 lb 2.5 oz) SpO2 99% BMI 24.35 kg/m? Vision Screening: Follows with optometry/ophthalmology Declines visual acuity screen Assessment/Plan Medicare annual wellness visit, subsequent (Z00.00) - Counseled on healthy diet and regular exercise - Fall avoidance information provided - Personalized prevention plan provided Alberto Ruano MD 01/22/2025 5:37 PM Signed This note was created using Imsysriter. Subjective Nano Aguilar is a 85 year old female. She was admitted for -01/14/25 for vertigo. Her troponin was elevated, but felt not to be significant. Her congestive heart failure and coronary artery disease were stable. She was taking meclizine with little relief. Dizziness lasts several minutes and most bothersome at night, causing insomnia and anxiety. Dizziness was mild during the day. Review of Systems Constitutional: Negative for fatigue and fever. Respiratory: Negative for cough, shortness of breath and wheezing. Cardiovascular: Negative for chest pain, palpitations and leg swelling. Gastrointestinal: Positive for nausea. Negative for vomiting. Neurological: Negative for syncope, facial asymmetry, weakness and headaches. Psychiatric/Behavioral: Negative for dysphoric mood. The patient is not nervous/anxious. ACTIVE PROBLEM LIST Generalized Osteoarthritis Osteoporotic Compression Fracture of Spine With Routine Healing Allergic Rhinitis Esophageal Reflux Non-Ischemic Cardiomyopathy (Hcc) Other Hyperlipidemia Benign Neoplasm of Colon Essential Hypertension Arthritis of Knee, Degenerative Lumbago Insomnia Emphysema of Lung (Hcc) Lbbb (Left Bundle Branch Block) Atherosclerosis of [place] Coronary Artery of [place] Heart With Stable Angina Pectoris Bilateral Carotid Artery Disease Asthma-Copd Overlap Syndrome (Hcc) Chronic Hyponatremia Chronic Heart Failure With Reduced Ejection Fraction (Hfref, <= 40%) ([facility]) Vertigo Social History Tobacco Use Smoking status: Former Current packs/day: 0.00 Average packs/day: 1 pack/day for 20.0 years (20.0 ttl pk-yrs) Types: Cigarettes Start date: 10/04/1964 Quit date: 10/04/1984 Years since quittin.3 Smokeless tobacco: Never Substance Use Topics Alcohol use: Yes Comment: Occasionally wine Drug use: No Current Outpatient Medications Medication Sig pantoprazole DR (PROTONIX) 20 mg tablet Take 1 tablet by mouth daily before breakfast. Take on empty stomach, 1/2 hr before meal. sacubitril-valsartan (ENTRESTO) 49-51 mg tablet Take 1 tablet by mouth two times a day. isosorbide mononitrate ER (IMDUR) 60 mg 24 hr tablet Take 1 tablet by mouth once daily. dapagliflozin propanediol (FARXIGA) 10 mg tablet Take 1 tablet by mouth daily with breakfast. meclizine (ANTIVERT) 25 mg tab Take 1 tablet by mouth every 6 hours as needed (for dizziness.). montelukast (SINGULAIR) 10 mg tablet Take 1 tablet by mouth once daily. TRELEGY ELLIPTA 100-62.5-25 mcg inhalation powder inhale 1 puff by mouth and INTO THE LUNGS once daily albuterol (PROVENTIL) 2.5 mg /3 mL (0.083 %) nebulizer solution Use 3 mL via nebulizer every 4 hours as needed for wheezing/shortness of breath. DX: ICD9: 493.00, ICD10: J45.909 fluticasone (FLONASE) 50 mcg/actuation nasal spray Use 1 Delaplaine in each nostril once daily. albuterol HFA (PROVENTIL HFA, VENTOLIN HFA) 90 mcg/actuation inhaler Inhale 2 Puffs as instructed. loratadine (CLARITIN) 10 mg tablet TAKE 1 TABLET BY MOUTH EVERY DAY NEEDED FOR ALLERGIES nitroglycerin sublingual (NITROSTAT) 0.4 mg SL tablet Dissolve 1 tablet under the tongue. DISSOLVE ONE(1) TABLET UNDER THE TOUNGUE NEEDED FOR CHEST PAIN,EVERY 5 MIN X3 carvedilol (COREG) 12.5 mg tablet Take 1 tablet by mouth twice daily. atorvastatin (LIPITOR) 40 mg tablet Take 1 tablet by mouth once daily. desoximetasone (TOPICORT) 0.25 % cream Apply 1 application to affected area once daily as needed (Apply sparingly to neck, face. Avoid eyes and mouth.). CALCIUM CARBONATE (CALTRATE 600 ORAL) Take 2 tablets by mouth once daily. MULTIVIT WITH CALCIUM,IRON,MIN (MULTIPLE VITAMIN, WOMENS ORAL) Take 1 capsule by mouth once daily. cholecalciferol, Vitamin D3, 400 unit Tab Take 1 tablet by mouth once daily. FISH OVZ-JVFHM-3-COENZYME Q10 1,900 MG-640 MG-50 MG/2.5 G ORAL PACKET Take one(1) tablet daily. No current facility-administered medications for this visit. Objective BP 132/70 (BP Site: Left Arm, BP Position: Sitting, BP Cuff Size: Large Adult) Pulse 70 Temp 36.7 ?C (98 ?F) (Temporal) Resp 14 Ht 157.5 cm (5' 2) Wt 60.4 kg (133 lb 2.5 oz) SpO2 99% BMI 24.35 kg/m? Physical Exam Constitutional: General: She is not in acute distress. Appearance: She is not ill-appearing or diaphoretic. HENT: Head: Normocephalic. Nose: No congestion. Eyes: Extraocular Movements: Extraocular movements intact. Conjunctiva/sclera: Conjunctivae normal. Neck: Vascular: No carotid bruit. Cardiovascular: Rate and Rhythm: Normal rate and regular rhythm. Heart sounds: No murmur heard. No gallop. Pulmonary: Breath sounds: Normal breath sounds. Musculoskeletal: Right lower leg: No edema. Left lower leg: No edema. Neurological: Mental Status: She is alert. Cranial Nerves: No cranial nerve deficit, dysarthria or facial asymmetry. Sensory: Sensation is intact. Motor: Motor function is intact. No tremor or pronator drift. Coordination: Romberg sign negative. Coordination normal. Tsevwz-Beuy-Ulnhqs Test normal. Rapid alternating movements normal. Gait: Gait normal. Assessment and Plan 1. Medicare annual wellness visit, subsequent - ICD9: V70.0, ICD10: Z00.00 (primary diagnosis) - See wellness visit. 2. Gastroesophageal reflux disease, unspecified whether esophagitis present - ICD9: 530.81, ICD10: K21.9 Controlled on medication. - PANTOPRAZOLE 20 MG TABLET,DELAYED RELEASE 3. Screening for depression - ICD9: V79.0, ICD10: Z13.31 - DEPRESSION SCREENING 4. Encounter for screening examination for other mental health and behavioral disorders - ICD9: V79.8, ICD10: Z13.39 - ANXIETY SCREENING 5. Chronic obstructive pulmonary disease, unspecified COPD type ([facility]) - ICD9: 496, ICD10: J44.9 Stable. Continue medications. See pulmonary. 6. Atherosclerosis of [place] coronary artery of [place] heart with stable angina pectoris - ICD9: 414.01, 413.9, ICD10: I25.118 Stable. Medication list updated. - ISOSORBIDE MONONITRATE ER 60 MG TABLET,EXTENDED RELEASE 24 HR 7. Vertigo - ICD9: 780.4, ICD10: R42 Improving. Shared medical decision making was done. Discussed medication dosage, usage, goals of therapy, and side effects. - LORAZEPAM 1 MG TABLET 8. Insomnia due to medical condition - ICD9: 327.01, ICD10: G47.01 See above. Limited use recommended. - LORAZEPAM 1 MG TABLET 9. 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, <= 40%) ([facility]) - ICD9: 428.22, ICD10: I50.22 - Compensated - Medication list updated. - ENTRESTO 49 MG-51 MG TABLET - DAPAGLIFLOZIN PROPANEDIOL 10 MG TABLET MD Bindu Townsend Victor H, MD 01/22/2025 2:51 PM Addendum Screening schedule The following prevention plan is recommended: Shingrix Vaccine(2 of 3) due on 04/10/2009 DTaP,Tdap,Td Vaccine(1 - Tdap) due on 04/20/2009 WHAT YOU CAN DO TO PREVENT FALLS Many falls can be prevented. By making some changes, you can lower your chances of falling. Four things YOU can do to prevent falls for you* and your caregiver 1. Begin a regular exercise program Exercise is one of the most important ways to lower your chances of falling. It makes you stronger and helps you feel better. Exercises that improve balance and coordination (like Graham Chi) are the most helpful. Lack of exercise leads to weakness and increases your chances of falling. Ask your doctor or health care provider about the best type of exercise program for you. 2. Have your health care provider review your medicines Have your doctor or pharmacist review all the medicines you take, even idoh-lop-raqheio medicines. As you get older, the way medicines work in your body can change. Some medicines, or combinations of medicines, can make you sleepy or dizzy and can cause you to fall. 3. Have your vision checked Have your eyes checked by an eye doctor at least once a year. You may be wearing the wrong glasses or have a condition like glaucoma or cataracts that limits your vision. Poor vision can increase your chances of falling. 4. Make your home safer About half of all falls happen at home. To make your home safer: Remove things you can trip over (like papers, books, clothes, and shoes) from stairs and places where you walk. Remove small throw rugs or use double-sided tape to keep the rugs from slipping. Keep items you use often in cabinets you can reach easily without using a step stool. Have grab bars put in next to your toilet and in the tub or shower. Use non-slip mats in the bathtub and on shower floors. Improve the lighting in your home. As you get older, you need brighter lights to see well. Hang light-weight curtains or shades to reduce glare. Have handrails and lights put in on all staircases. Wear shoes both inside and outside the house. Avoid going barefoot or wearing slippers. For more information, contact: Centers for Disease Control and Prevention www.cdc.gov/injury * This information may not apply if you have certain medical conditions. Advance Directive Forms Advanced Directives Forms ([place]) FORMS: https://author.portals.ccf.org/Portals/138/sesz-crzzyf-odks-mzkni-fy-tcokmhzp.p- df INFORMATIONAL BROCHURE: https://my.[facility].org/-/scassets/files/org/patients-visitors/informati- on/advance-directives.ashx?la=en Advance Directives (non-[place]) FORMS: https://my.[facility].org/patients/information/woggrjr-iqqfcyajv-iptws/adv- ance-directives#forms-tab Please bring completed forms to your next appointment or email them to . Patient Resources How to Get Started Talking with Loved Ones about your Wishes at the End of Life https://theconversationproject.org/wp-content/uploads//ConversationProje- xc-GzgngXpjpouuBsp-Xkwnuld.pdf How to Navigate Conversations with your Care Team around your Preferences [email or web address] Allergies As of Date: 01/22/2025 Noted Allergy Reaction ALTACE (RAMIPRIL) 12/06/2012 14 - Other: See Comments Comments: Cough BACTRIM (SULFAMETHOXAZOLE-TRIMETH*01/22/2011 8 - GI Upset Comments: Pt having GI upset and stomach pain LATEX 04/17/2009 9 - Itching Comments: Blisters RELAFEN (NABUMETONE) 06/09/2005 8 - GI Upset Date Reviewed: 07/19/2024 Reviewed by: Jannie Monahan LPN - Fully Assessed Reason for Visit: Medicare Wellness Exam [4060] Cmt: [facility] follow up, c/o vertigo today, last seen a few months ago , discuss DNR CC Primary Visit Diagnosis:Medicare annual wellness visit, subsequent [Z00.00] Other Visit Diagnoses:Gastroesophageal reflux disease, unspecified whether esophagitis present [K21.9] Screening for depression [Z13.31] Encounter for screening examination for other mental health and behavioral disorders [Z13.39] Chronic obstructive pulmonary disease, unspecified COPD type ([facility]) [J44.9] Atherosclerosis of [place] coronary artery of [place] heart with stable angina pectoris [I25.118] Vertigo [R42] Insomnia due to medical condition [G47.01] 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, <= 40%) ([facility]) [I50.22] Order(s):pantoprazole DR (PROTONIX) 20 mg tabletTake 1 tablet by mouth daily before breakfast. Take on empty stomach, 1/2 hr before meal.Disp: 90 tabletRfl: 3 DEPRESSION SCREENING [] Order #: [id number]: 1 ANXIETY SCREENING [] Order #: [id number]: 1 ADVANCE CARE PLAN DISCUSSION [8623225] Order #: [id number]: 1 LORazepam (ATIVAN) 1 mg tabletTake 1 tablet by mouth at bedtime as needed (dizziness, insomnia) for up to 14 days.Disp: 14 tabletRfl: 0 Prescriptions as of 01/22/2025 - pantoprazole DR (PROTONIX) 20 mg tablet Take 1 tablet by mouth daily before breakfast. Take on empty stomach, 1/2 hr before meal. - sacubitril-valsartan (ENTRESTO) 49-51 mg tablet Take 1 tablet by mouth two times a day. - isosorbide mononitrate ER (IMDUR) 60 mg 24 hr tablet Take 1 tablet by mouth once daily. - dapagliflozin propanediol (FARXIGA) 10 mg tablet Take 1 tablet by mouth daily with breakfast. - LORazepam (ATIVAN) 1 mg tablet Take 1 tablet by mouth at bedtime as needed (dizziness, insomnia) for up to 14 days. - meclizine (ANTIVERT) 25 mg tab Take 1 tablet by mouth every 6 hours as needed (for dizziness.). - montelukast (SINGULAIR) 10 mg tablet Take 1 tablet by mouth once daily. - TRELEGY ELLIPTA 100-62.5-25 mcg inhalation powder inhale 1 puff by mouth and INTO THE LUNGS once daily - albuterol (PROVENTIL) 2.5 mg /3 mL (0.083 %) nebulizer solution Use 3 mL via nebulizer every 4 hours as needed for wheezing/shortness of breath. DX: ICD9: 493.00, ICD10: J45.909 - fluticasone (FLONASE) 50 mcg/actuation nasal spray Use 1 [place] in each nostril once daily. - albuterol HFA (PROVENTIL HFA, VENTOLIN HFA) 90 mcg/actuation inhaler Inhale 2 Puffs as instructed. - loratadine (CLARITIN) 10 mg tablet TAKE 1 TABLET BY MOUTH EVERY DAY NEEDED FOR ALLERGIES - nitroglycerin sublingual (NITROSTAT) 0.4 mg SL tablet Dissolve 1 tablet under the tongue. DISSOLVE ONE(1) TABLET UNDER THE TOUNGUE NEEDED FOR CHEST PAIN,EVERY 5 MIN X3 - carvedilol (COREG) 12.5 mg tablet Take 1 tablet by mouth twice daily. - atorvastatin (LIPITOR) 40 mg tablet Take 1 tablet by mouth once daily. - desoximetasone (TOPICORT) 0.25 % cream Apply 1 application to affected area once daily as needed (Apply sparingly to neck, face. Avoid eyes and mouth.). - CALCIUM CARBONATE (CALTRATE 600 ORAL) Take 2 tablets by mouth once daily. - MULTIVIT WITH CALCIUM,IRON,MIN (MULTIPLE VITAMIN, WOMENS ORAL) Take 1 capsule by mouth once daily. - cholecalciferol, Vitamin D3, 400 unit Tab Take 1 tablet by mouth once daily. - FISH JGE-HMDBX-9-COENZYME Q10 1,900 MG-640 MG-50 MG/2.5 G ORAL PACKET Take one(1) tablet daily. Problem List As Of Date 01/22/2025 Noted Resolved Extrinsic asthma [J45.909] 06/09/2005 08/01/2021 Generalized osteoarthritis [M15.9] 06/09/2005 Osteoporotic compression fracture of spine with*07/13/2017 Allergic rhinitis [J30.9] 06/09/2005 ESOPHAGEAL REFLUX [K21.9] 06/09/2005 Non-ischemic cardiomyopathy (HCC) [I42.8] 08/04/2005 Other hyperlipidemia [E78.49] 08/04/2005 Bronchiectasis without acute exacerbation (HCC)*08/18/2006 01/06/2018 BENIGN NEOPLASM LG BOWEL [D12.6] 04/10/2008 Personal History of Colonic Polyps [Z86.0100] 07/16/2008 06/20/2010 Essential hypertension [I10] 08/16/2008 Screening for malignant neoplasm of the cervix *08/28/2008 01/05/2012 Osteoarthritis, knee [M17.9] 06/12/2009 01/05/2012 Postmenopausal atrophic vaginitis [N95.2] 10/02/2009 01/22/2025 Female stress incontinence [N39.3] 10/02/2009 03/06/2015 Arthritis of knee, degenerative [M17.9] 11/19/2011 Uterine prolapse without mention of vaginal wal*12/21/2011 03/06/2015 Degeneration of intervertebral disc [GYF7164] 03/06/2015 Personal history of renal artery stenosis [Z86.*08/23/2009 03/06/2015 Ganglion cyst [M67.40] 07/26/2012 05/17/2013 Occipital neuralgia [M54.81] 05/17/2013 01/05/2017 Lumbago [M54.50] 05/17/2013 Insomnia [G47.00] 05/17/2013 Emphysema of lung (HCC) [J43.9] 03/05/2015 LBBB (left bundle branch block) [I44.7] 03/05/2015 Thoracic or lumbosacral neuritis or radiculitis*03/07/2015 01/05/2017 Special screening for malignant neoplasms, colo*05/02/2015 05/02/2015 Atherosclerosis of [place] coronary artery of [place]*07/03/2016 Bilateral carotid artery disease (HCC) [I77.9] 07/03/2016 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 By making some changes, you can lower your chances of falling. Four things YOU can do to prevent falls for you* and your caregiver 1. Begin a regular exercise program Exercise is one of the most important ways to lower your chances of falling. It makes you stronger and helps you feel better. Exercises that improve balance and coordination (like Graham Chi) are the most helpful. Lack of exercise leads to weakness and increases your chances of falling. Ask your doctor or health care provider about the best type of exercise program for you. 2. Have your health care provider review your medicines Have your doctor or pharmacist review all the medicines you take, even olom-ret-rggbhhx medicines. As you get older, the way medicines work in your body can change. Some medicines, or combinations of medicines, can make you sleepy or dizzy and can cause you to fall. 3. Have your vision checked Have your eyes checked by an eye doctor at least once a year. You may be wearing the wrong glasses or have a condition like glaucoma or cataracts that limits your vision. Poor vision can increase your chances of falling. 4. Make your home safer About half of all falls happen at home. To make your home safer: Remove things you can trip over (like papers, books, clothes, and shoes) from stairs and places where you walk. Remove small throw rugs or use double-sided tape to keep the rugs from slipping. Keep items you use often in cabinets you can reach easily without using a step stool. Have grab bars put in next to your toilet and in the tub or shower. Use non-slip mats in the bathtub and on shower floors. Improve the lighting in your home. As you get older, you need brighter lights to see well. Hang light-weight curtains or shades to reduce glare. Have handrails and lights put in on all staircases. Wear shoes both inside and outside the house. Avoid going barefoot or wearing slippers. For more information, contact: Centers for Disease Control and Prevention www.cdc.gov/injury * This information may not apply if you have certain medical conditions. Advance Directive Forms Advanced Directives Forms ([place]) FORMS: https://author.portals.ccf.org/Portals/138/qnsg-jjfxjb-jhhn-fbxsv-dj-zljqvd ey.pdf INFORMATIONAL BROCHURE: https://my.[facility].org/-/scassets/files/org/patients-visitors/infor maritza/advance-directives.ashx?la=en Advance Directives (non-[place]) FORMS: https://my.[facility].org/patients/information/iyrkgii-sjcakcpnr-vdmsz /advance-directives#forms-tab Please bring completed forms to your next appointment or email them to . Patient Resources How to Get Started Talking with Loved Ones about your Wishes at the End of Life https://theconversationproject.org/wp-content/uploads//ConversationP jqjcvp-TwoxfMcrgxtyRon-Idbnrux.pdf How to Navigate Conversations with your Care Team around your Preferences [email or web address] Prescriptions ordered this encounter Disp Refills Start End PANTOPRAZOLE 20 MG TABLET,DELAYED RE* 90 t* 3 01/22/2025 Route: ORAL Sig: Take 1 tablet by mouth daily before breakfast. Take on empty stomach, 1/2 hr before meal. LORAZEPAM 1 MG TABLET 14 t* 0 01/22/2025 02/05/2025 Route: ORAL Sig: Take 1 tablet by mouth at bedtime as needed (dizziness, insomnia) for up to 14 days. Medications Discontinued During This Encounter Prescriptions - pantoprazole DR (PROTONIX) 20 mg tablet (Discontinued) Take 1 tablet by mouth daily before breakfast. Take on empty stomach, 1/2 hr before meal. - losartan (COZAAR) 50 mg tablet (Discontinued) Take 1 tablet by mouth once daily. - isosorbide mononitrate ER (IMDUR) 30 mg 24 hr tablet (Discontinued) Take 1 tablet by mouth once daily. Additional E/M codes: VISIT CPLX INHERENT EANDM ASSOC WITH MED * Disposition: Return in about 6 months (around 07/24/2025), or if symptoms worsen or fail to improve. Follow-up and Disposition History for Encounter Date Provider Department Center 01/22/2025 [id number]-HLQSVUPEJALBERTO RUANO [facility] Encounter Status:Closed by ALBERTO RUANO on 01/22/25 ALLERGIES DATE TYPE / CODE NAME / CODE REACTION SEVERITY SOURCE 12/06/2012 DRUG INGREDI/[id number] 003(SNOMED CT) RAMIPRIL OTHER: SEE C [facility] 01/22/2011 DRUG/[id number] (SNOMED CT) SULFAMETHOXAZOLE-TRI METHOPRIM GI UPSET [facility] 04/17/2009 DRUG INGREDI/[id number] 003(SNOMED CT) LATEX ITCHING [facility] 06/09/2005 DRUG INGREDI/[id number] 003(SNOMED CT) NABUMETONE GI UPSET [facility] ENCOUNTERS ADMIT/DISCHARGE ACCOUNT NUMBER ADMITTING ENCOUNTER CLASS LOC ATION SOURCE 07/26/2025/ 5 [id number] [facility] HospitalBuild ing:TRINO [facility] 07/26/2025/ 5 [id number] [facility] HospitalBuild ing:ZACHARIAH [facility] 01/22/2025/ [id number] [facility] HospitalBuild ing:DALTONTRINI [facility] PAYERS ENCOUNTER GUARANTOR PAYER SUBSCRIBER SOURCE 07/26/2025 Primary Insurance:[employer] MEDICARE PPOPolicy Number: [id number] e Date:[id number] Name:Frandy REDDYORDOB: [id number] [address] 07/26/2025 Primary Insurance:[employer]ET[employer] MEDICARE PPOPolicy Number: [id number] e Date:[id number] Name:Frandy REDDYORDOB: [id number] [place], [place] [address] [place] [address] 01/22/2025 Primary Insurance:[employer]ET[employer] MEDICARE PPOPolicy Number: [id number] e Date:[id number] Name:Frandy Hughes NESTORDOB: [id number] [place], [place] [id number] [place] [address]
--- OUTSIDE RECORDS SUMMARY | 2026-01-22 07:35 | XMS RPT_ITS | CCD ---
Author Organization [facility] CliniSymn Care Team Providers Care Assistant Professor Of Drama Name Role Phone Alberto Herr Referring Unavailable Niranjan DOSIER OPERATOR, Herlinda Attending Unavailable Nemesio, Alberto Primary Care Unavailable Herr, Alberto Referring Unavailable Niranjan DOSIER OPERATOR, Herlinda Attending Unavailable Alberto Herr Primary Care Unavailable Miranda Tripathi Admitting Unavailable Herr, Alberto Primary Care Unavailable Miranda Tripathi Attending Unavailable Nemesio, Alberto Primary Care Unavailable Niranjan DOSIER OPERATOR, Herlinda Attending Unavailable Niranjan DOSIER OPERATOR, Herlinda Referring Unavailable Miranda Tripathi Admitting Unavailable Alberto Herr Primary Care Unavailable Miranda Tripathi Consulting Unavailable Miranda Tripathi Attending Unavailable Nemesio, Alberto Primary Care Unavailable Miranda Tripathi Consulting Unavailable Miranda Tripathi Attending Unavailable Miranda Tripathi Admitting Unavailable ALBERTO HERR Primary Care Unavailable ALBERTO HERR Attending Unavailable ALBERTO HERR Attending Unavailable NEMESIO, ALBERTO Rhoades Primary Care Unavailable ALBERTO HERR Referring Unavailable NEMESIO, ALBERTO Rhoades Primary Care Unavailable Herlinda Ureña Attending Unavailable Niranjan, Herlinda Attending Unavailable Herlinda Ureña Referring Unavailable Herlinda Ureña Attending Unavailable JEF MERCEDES Unavailable Unavailable ALBERTO EHRR Unavailable Unavailable JEF MERCEDES Unavailable Unavailable Alberto Herr Unavailable Unavailable JEF MERCEDES Unavailable Unavailable JEF MERCEDES Unavailable Unavailable Alberto Herr MD Primary Care Provider Tsering, Oskar S Unavailable Alberto Herr MD Primary Care Provider Tsering, Oskar S Unavailable Tsering, Oskar S Unavailable Dr. Alberto Herr Primary Care Provider Dr. Alberto Herr Referring Provider Roof DOSIER OPERATOR, DOSIER OPERATOR-C Maurisio Verona Attending Provider Roof DOSIER OPERATOR, DOSIER OPERATOR-C Maurisio Verona Referring Provider Roof DOSIER OPERATOR, DOSIER OPERATOR-C Maurisio Rhoades Other Provider Dr. Tripp Foster Attending Provider Alberto Herr MD Primary Care Provider Brayden Cagleril S Unavailable Tsering CARABALLO, [place] S Unavailable Dr. Alberto Herr Primary Care Provider Dr. Alberto Herr Referring Provider Rajendra, Dr. Snow Attending Provider Dr. Jaime Corea Attending Provider Dr. Alberto Herr Primary Care Provider Dr. Alberto Herr Referring Provider Dr. Edy Drew Attending Provider Dr. Jaime Corea Attending Provider [phone] Edy Drew Referring Provider HUE Duenas Referring Provider HUE Duenas Other Provider Dr. Oskar Cagle Attending Provider Alberto Herr MD Primary Care Provider Rocío RN, Tata Unavailable Rocío RN, Tata Unavailable Adalid PANCHALN.HIGH REACH OPERATOR, Brooke M Unavailable Patt RN, Alessandra Unavailable Dr. Alberto Herr MD Primary Care Provider Dr. Alberto Herr MD Referring Provider Dr. Edy Drew MD Attending Provider Jodi DO, Dr. Hooks Emergency Provider Mirian KESSLER, Dr. Sandoval Admit Provider Mirian KESSLER, Dr. Sandoval Other Provider Sal KESSLER, Dr. Mansfield Attending Provider Mirian KESSLER, Dr. Sandoval Attending Provider Diana CARABALLO, Dr. Leon Attending Provider Sal KESSLER, Dr. Mansfield Referring Provider Sal KESSLER, Dr. Mansfield Other Provider Raman KESSLER, Dr. Perdomo Attending Provider Uche KESSLER, Dr. Combs Emergency Provider Deuce CARABALLO, Dr. Jean Admit Provider Deuce CARABALLO, Dr. Jean Attending Provider Nemesio CARABALLO, Dr. Dominguez Primary Care Provider Nemesio CARABALLO, Dr. Dominguez Referring Provider Herlinda Stephens Attending Provider Nemesio CARABALLO, Dr. Dominguez Primary Care Physician Nemesio CARABALLO, Dr. Dominguez Referring Provider Herlinda Stephens Attending Physician Herlinda Stephens Referring Provider Allergies Allergy Classification Reported Allergen(s) Allergy Type Date of Onset Reaction(s) Facility (10 sources) Adhesive Tape Drug allergy (disorder) 05-16-20 Itching [facility] Repository Comment on above: FROM [place] (6 sources) Latex; Translations: [LATEX] Drug allergy (disorder) 04-17-20 [facility] Repository (6 sources) nabumetone; Translations: [NABUMETONE] Drug Allergy 06-09-20 [facility] Repository (6 sources) Ramipril; Translations: [RAMIPRIL] Drug Allergy 12-07-19 13 AOF [facility] Repository (2 sources) Sulfamethoxazole Drug Allergy 11-08-19 26 [facility] Repository (2 sources) Trimethoprim Drug Allergy 11-08-19 26 [facility] Repository (20 sources) Sulfamethoxazole / Trimethoprim; Translations: [SULFAMETHOXAZOLE-T RIMETHOPRIM] Drug Allergy 01-23-20 11 GI Upset [facility] Repository (2 sources) OTHER; Translations: [OTHER] Propensity to adverse reactions (disorder) 01-13-20 06 AOF [facility] Repository (20 sources) Latex Propensity to adverse reactions 04-17-20 09 Itching [facility] (20 sources) nabumetone Drug Allergy 06-09-20 05 GI Upset [facility] Work Phone: (20 sources) Ramipril Drug Allergy 12-07-19 13 Other: See Comments [facility] Work Phone: (20 sources) bandaids [Other] Propensity to adverse reactions 01-13-20 06 Rash, Itching [facility] (9 sources) Sulfamethoxazole Drug Allergy 06-19-20 22 Nausea [facility] (9 sources) Trimethoprim Drug Allergy 06-19-20 22 Nausea [facility] (1 source) BANDAIDS Propensity to adverse reactions 06-19-20 22 Itching [facility] Work Phone: Medications Current Medications Medication Drug Class(es) Dates Sig (Normalized) Sig (Original) acetaminophen 300 mg / HYDROcodone bitartrate 5 mg oral tablet (20 sources) Opioid Agonist Start: 11-08-2025 Start: 06-19-2022 End: 01-14-2025 Hydrocodone-Acetaminophen 5- 325 mg tablet Discontinued 1 {tbl} PO THREE TIMES A DAY as needed for pain 0 June 18, 2022 11:00pm January 14, 2025 11:02am Start: 06-19-2022 take 1 tablet by hawk th three times daily Hydrocodone-Acetaminophen Active 1 TABLE T PO THREE TIMES A DAY June 19, 2022 12:00am Start: 03-04-2020 End: 06-19-2022 Hydrocodone-Acetaminophen 7. 5-325 mg tablet Discontinued 1 {tbl} PO DAILY as needed for Pain 0 March 03, 2020 11:00pm June 19, 2022 1:27pm Start: 03-04-2020 End: 06-19-2022 take 1 tablet by mouth once daily Hydrocodone-Acetaminophen Discontinued 1 TABLET PO DAILY March 04, 2020 12:00am June 19, 2022 2:27pm Start: 11-19-2018 End: 12-07-2024 HYDROcodone-Acetaminophen (N ORCO) 7.5-325 mg per tablet Indications: Chronic low back pain, unspecified back pain laterality, with sciatica presence unspecified Take 1 tablet by mouth three times daily. Per pain management. 0 11/19/2018 12/07/2024 Discontinued Start: 09-09-2018 End: 03-04-2020 Hydrocodone-Acetaminophen 1 EACH tablet Discontinued 1 NMA PO EVERY 6 HOURS as needed for Pain September 09, 2018 12:00am March 04, 2020 10:09am Start: 09-09-2018 End: 03-04-2020 Hydrocodone-Acetaminophen Di scontinued 1 EACH PO EVERY 6 HOURS September 09, 2018 1:00am March 04, 2020 11:09am Comment on above: Take 1 tablet by hawk th three times daily. Per pain management. [id number] 200 actuat albuter ol 0.09 mg/actuat metered dose inhaler (20 sources) beta2-Adrenergic Agonist Start: 11-16-2024 Start: 11-26-2020 End: 07-11-2024 Albuterol Sulfate (Proair Hf a) 90 mcg/actuation HFA aerosol inhaler Discontinued 2 NMA INHALATION EVERY 6 HOURS as needed for SOB November 26, 2020 12:00am July 11, 2024 6:03pm Start: 11-26-2020 take 1 puff(s) by in halation every six hours Albuterol Sulfate (Proair Hfa) 90 mcg/actuation HFA aerosol inhaler Active 2 PUFF INHALATION EVERY 6 HOURS November 26, 2020 1:00am Start: 08-08-2019 End: 11-16-2024 take 2.5 mg by inhalation every four hours as needed Albuterol Sulfate 2.5 mg /3 mL (0.083 %) solution for nebulization Discontinued 2.5 mg INHALATION Q4H as needed for SOB March 04, 2020 10:13am November 16, 2024 1:07pm Start: 07-03-2016 End: 01-20-2025 take 2.5 mg by inhalation every four hours as needed for chronic obstructive pulmonary disease and chronic obstructive pulmonary disease albuterol (PROVENTIL) 2.5 mg /3 mL (0.083 %) nebulizer solution Indications: Chronic obstructive pulmonary disease, unspecified COPD type (HCC) Use 3 mL via nebulizer every 4 hours as needed for wheezing/shortness of breath. DX: ICD9: 493.00, ICD10: J45.909 360 mL 5 07/24/2024 Active albuterol HFA (P ROVENTIL HFA, VENTOLIN HFA) 90 mcg/actuation inhaler Inhale 2 Puffs as instructed. Active Comment on above: Use 3 mL via nebuliz er every 4 hours as needed for Wheezing/Shortness of Breath. DX: ICD9: 493.00, ICD10: J45.909 aspirin 81 mg delayed release oral tablet (20 sources) Platelet Aggregation Inhibitor, Nonsteroidal Anti-inflammatory Drug Start: 04-17-20 End: 07-19-20 take 1 tablet by mouth once daily Comment on above: Take one(1) tablet d aily. Calcium Carbonate (20 sources) take 2 tablets by mouth once daily CALCIUM CARBONATE (CALTRATE 600 ORAL) Take 2 tablets by mouth once daily. Active take 2 tablets by mouth once grant ly CALCIUM CARBONATE (CALTRATE 600 ORAL) Take 2 tablets by mouth once daily. 0 Active Comment on above: Take 2 tablets by mo [facility] once daily. calcium carbonate 1500 mg / cholecalciferol 0.01 mg oral tablet (20 sources) Vitamin D Start: 01-13-2025 Start: 06-19-2022 End: 07-11-2024 Calcium Carbonate-Vitamin D3 600 mg-20 mcg (800 unit) tablet Discontinued 1 {tbl} PO DAILY June 19, 2022 1:24pm July 11, 2024 5:57pm Start: 06-19-2022 [facility] Calcium Carbonate-Vitamin D3 Active 1 TABLET PO DAILY June 19, 2022 2:24pm Start: 09-09-2018 End: 06-19-2022 Calcium Carbonate-Vitamin D3 1 TAB tablet Discontinued 1 {tbl} PO TWICE DAILY WITH MEALS September 09, 2018 12:00am June 19, 2022 1:27pm Start: 09-09-2018 End: 06-19-2022 take 1 tablet by mouth twice daily at mealtime Calcium Carbonate-Vitamin D3 Discontinued 1 TABLET PO TWICE DAILY WITH MEALS September 09, 2018 1:00am June 19, 2022 2:27pm cholecalciferol 0.01 mg chew able tablet (20 sources) Vitamin D Start: 07-11-2024 take 1 tablet by hawk th once daily Start: 09-09-2018 End: 03-04-2020 take 1 tablet by mouth once daily Cholecalciferol (Vitamin D3) 1,000 UNIT tablet Discontinued 1000 U PO DAILY September 09, 2018 12:00am March 04, 2020 10:12am Start: 07-26-2012 take 1 tablet by hawk th once daily cholecalciferol, Vitamin D3, 400 unit Tab Take 1 tablet by mouth once daily. 0 07/26/2012 Active Comment on above: Take 1 tablet by hawk th once daily. FISH [id number]-6-COENZYM E Q10 1,900 MG-640 MG-50 MG/2.5 G ORAL PACKET (20 sources) Start: 11-20-2008 take 1 tablet by mouth once daily FISH CUQ-LRTZX-6-COENZ YME Q10 1,900 MG-640 MG-50 MG/2.5 G ORAL PACKET Take one(1) tablet daily. 0 11/20/2008 Active Comment on above: Take one(1) tablet d aily. Fluticasone-Umeclid in-Vilanter (20 sources) Anticholinergic, Corticosteroid, beta2-Adrenergic Agonist Start: 11-16-2024 Start: 11-16-2024 Fluticasone-Um eclidin-Vilanter (Trelegy Ellipta) 100-62.5-25 mcg blister with device Active 1 NMA INHALATION DAILY November 16, 2024 1:00am breathing Start: 11-16-2024 Fluticasone-Um eclidin-Vilanter (Trelegy Ellipta) 100-62.5-25 mcg blister with device Active 1 NMA INHALATION DAILY November 16, 2024 1:00am Start: 08-14-2024 End: 08-14-2025 take 1 puff(s) by mouth once daily TRELEGY ELLIPTA 100-62.5-25 mcg inhalati on powder Indications: Chronic obstructive pulmonary disease, unspecified COPD type (HCC) inhale 1 puff by mouth and INTO THE LUNGS once daily 180 Each 5 08/14/2024 08/14/2025 Active Start: 07-19-2024 End: 08-14-2024 take 1 puff(s) by inhalation once daily wasljfquimh-cejkdjdvv-kzddpaxo (TRELEGY ELLIPTA) 100-62.5-25 mcg inhalation powder Indications: Chronic obstructive pulmonary disease, unspecified COPD type (HCC) Inhale 1 Puff as instructed once daily. 1 Each 5 07/19/2024 08/14/2024 Discontinued furosemide 40 mg oral tablet (20 sources) Loop Diuretic Start: 12-01-2024 End: 08-13-2025 take 1 tablet by mouth twice daily Start: 07-13-2024 End: 12-01-2024 take 1 tablet by mouth once daily Furosemide (Lasix) 40 mg tablet Discontinued 40 mg PO DAILY 90 3 August 08, 2024 2:04pm December 01, 2024 3:51pm loratadine 10 mg oral tablet (20 sources) Start: 09-09-2018 End: 01-13-2023 take 1 tablet by mouth once daily Comment on above: TAKE 1 TABLET BY HAWK TH EVERY DAY NEEDED FOR ALLERGIES LORazepam 1 mg oral tablet (1 source) Benzodiazepine Start: 01-22-2025 End: 02-05-2025 take 1 tablet by mouth at bedtime as needed for dizziness LORazepam (ATIVAN) 1 mg tablet Indications: Vertigo , Insomnia due to medical condition Take 1 tablet by mouth at bedtime as needed (dizziness, insomnia) for up to 14 days. 14 tablet 01/22/2025 02/05/2025 Active meclizine hydrochloride 25 mg oral tablet (2 sources) Antiemetic Start: 01-18-2025 take 1 tablet by mouth every six hours as needed for dizziness and dizziness meclizine (ANTIVERT) 25 mg tab Indications: Dizziness Take 1 tablet by mouth every 6 hours as needed (for dizziness.). 20 tablet 01/18/2025 Active montelukast 10 mg oral tablet (20 sources) Leukotriene Receptor Antagonist Start: 09-09-2018 End: 12-27-2024 take 1 tablet by mouth once daily Comment on above: Take 1 tablet by hawk th once daily. MULTIVIT WITH CALCIUM,IRON,MIN (MULTIPLE VITAMIN, WOMENS ORAL) (20 sources) take 1 capsule by mouth once daily MULTIVIT WITH CALCIUM,IRON,MA N (MULTIPLE VITAMIN, WOMENS ORAL) Take 1 capsule by mouth once daily. Active take 1 capsule by mouth once grant ly MULTIVIT WITH CALCIUM,IRON,MIN (MULTIPLE VITAMIN, WOMENS ORAL) Take 1 capsule by mouth once daily. 0 Active Comment on above: Take 1 capsule by mo uth once daily. Multivitamin With Folic Acid (4 sources) Start: 09-09-2018 take 1 tablet by mouth once daily Multivitamin With Folic Acid Active 1 TABLET PO DAILY September 09, 2018 12:00am Start: 09-09-2018 take 1 tablet by hawk th once daily Multivitamin With Folic Acid Active 1 TABLET PO DAILY September 09, 2018 1:00am Multivitamin With Folic Acid 1 TABLET tablet (5 sources) Start: 09-09-2018 take 1 tablet by hawk th once daily Start: 09-09-2018 take 1 tablet by hawk th once daily Multivitamin With Folic Acid 1 TABLET tablet Active 1 {tbl} PO DAILY September 09, 2018 1:00am vitamin Start: 09-09-2018 take 1 tablet by hawk th once daily Multivitamin With Folic Acid 1 TABLET tablet Active 1 {tbl} PO DAILY September 09, 2018 1:00am [place]-3 Fatty Acids-Fish Oil (4 sources) Start: 09-09-2018 [place]-3 Fatty Acids-Fish Oil Active 1 EACH PO DAILY September 09, 2018 12:00am Start: 09-09-2018 [place]-3 Fatty Acids-Fish Oil Active 1 EACH PO DAILY September 09, 2018 1:00am pantoprazole 20 mg delayed release oral tablet (20 sources) Proton Pump Inhibitor Start: 08-08-2019 End: 01-22-2025 take 1 tablet by mouth once daily Comment on above: Take 1 tablet by hawk th daily before breakfast. Take on empty stomach, 1/2 hr before meal. sacubitril 49 mg / valsartan 51 mg oral tablet (9 sources) Angiotensin 2 Receptor Taras Start: 03-05-2025 Start: 01-22-2025 take 1 tablet by hawk th twice daily sacubitril-valsartan (ENTRESTO) 49-51 mg tablet Indications: 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, Take 1 tablet by mouth two times a day. 01/22/2025 Active Start: 11-16-2024 End: 03-05-2025 Sacubitril-Valsartan (Entres to) 49-51 mg tablet Discontinued 1 {tbl} PO TWICE A DAY 180 3 November 16, 2024 12:00am March 05, 2025 4:22pm heart Start: 11-16-2024 End: 03-05-2025 Sacubitril-Valsartan (Entres to) 49-51 mg tablet Discontinued 1 {tbl} PO TWICE A DAY 180 3 November 16, 2024 1:00am March 05, 2025 5:22pm heart Start: 11-16-2024 Sacubitril-Tess sartan (Entresto) 49-51 mg tablet Active 1 {tbl} PO TWICE A DAY 180 November 16, 2024 1:00am Completed/Discontinued Medications Medication Drug Class(es) Dates Sig (Normalized) Sig (Original) 120 actuat albuterol 0.1 mg/actuat / ipratropium bromide 0.02 mg/actuat inhalation spray (20 sources) Anticholinergic, beta2-Adrenergic Agonist Start: 07-11-2024 End: 11-16-2024 take 20-100 ug by inhalation every four hours Ipratropium-Albuter ol (Combivent Respimat) 20-100 mcg/actuation mist Discontinued 1 NMA INHALATION Q4H July 10, 2024 11:00pm November 16, 2024 1:06pm breathing Start: 03-06-2021 End: 07-19-2024 take 20-100 ug by inhalation four times daily as needed ipratropium 20 mcg-albuterol 100 mcg (COMBIVENT RESPIMAT) 20-100 mcg/actuation inhaler Indications: Asthma-COPD overlap syndrome (HCC) Inhale 1 Puff as instructed four times daily as needed (wheezing, shortness of breath). 1 Each 1 12/29/2022 07/19/2024 Discontinued Start: 09-09-2018 End: 11-26-2020 take 4 g by inhalation once daily Ipratropium-Albuterol 4 GM mist Discontinued 4 g IH DAILY September 09, 2018 12:00am November 26, 2020 3:27pm Comment on above: Inhale 1 Puff as ins tructed four times daily as needed (wheezing, shortness of breath). amLODIPine 10 mg oral tablet (20 sources) Dihydropyridine Calcium Channel Taras Start: 11-26-19 End: 02-19-20 take 1 tablet by mouth once daily Amlodipine 10 mg tablet Discontinued 10 mg PO DAILY November 26, 2020 12:00am February 18, 2021 12:00pm On Hold: Order Changed Start: 08-08-2019 End: 11-26-2020 take 2 tablets by mouth once daily Amlodipine 5 mg tablet Discontinued 10 mg PO DAILY March 04, 2020 10:07am November 26, 2020 3:26pm Start: 08-08-2019 End: 11-26-2020 take 10 mg by mouth once daily Amlodipine Discontinued 10 MG PO DAILY March 04, 2020 11:07am November 26, 2020 4:26pm Start: 09-09-2018 End: 08-08-2019 take 1 tablet by mouth once daily Amlodipine 5 MG tablet Discontinued 5 mg PO DAILY September 09, 2018 12:00am August 08, 2019 11:27am ascorbic acid 500 mg oral capsule (20 sources) Vitamin C Start: 08-08-2019 End: 07-11-2024 take 1 capsule by mouth once daily Ascorbic Acid (Vitamin C) 500 mg capsule Discontinued 500 mg PO DAILY 0 August 08, 2019 12:00am July 11, 2024 6:03pm Start: 04-17-2009 End: 07-19-2024 ascorbic acid(VITAMIN C 500 MG TAB) Take one(1) tablet daily. 0 04/17/2009 07/19/2024 Discontinued (Course of therapy completed) Comment on above: Take one(1) tablet d aily. atorvastatin 40 mg oral tablet (20 sources) HMG-CoA Reductase Inhibitor Start: 8 End: 5 take 1 tablet by mouth at bedtime Atorvastatin 40 mg tablet Discontinued 40 mg PO AT BEDTIME 90 February 16, 2024 1:07pm July 11, 2024 6:03pm Comment on above: Take 1 tablet by hawk th once daily. azelastine hydrochloride 0.137 mg/actuat metered dose nasal spray (9 sources) Histamine-1 Receptor Antagonist Start: 8 End: 1 Azelastine 1 SPRAY aerosol,spray Discontinued 2 NMA NASAL TWICE A DAY September 09, 2018 12:00am November 26, 2020 3:27pm Start: 09-09-2018 End: 11-26-2020 Azelastine Discontinued 2 SP RAY NASAL TWICE A DAY September 09, 2018 1:00am November 26, 2020 4:27pm benzonatate 100 mg oral capsule (8 sources) Non-narcotic Antitussive Start: 03-06-2021 End: 07-08-2022 take 1 capsule by mouth every eight hours as needed for cough and cough benzonatate (TESSALON PERLES) 100 mg capsule Indications: Cough Take 1 capsule by mouth three times daily as needed for Cough. FOR COUGHING. 90 capsule 2 03/06/2021 07/08/2022 Discontinued Comment on above: Take 1 capsule by mo [facility] three times daily as needed for Cough. FOR COUGHING. budesonide 0.032 mg/actuat metered dose nasal spray (6 sources) Corticosteroid Start: 04-24-2024 End: 07-19-2024 take 2 spray(s) by mouth once daily budesonide (RHINOCORT AQ) 32 mcg/actuation nasal spray Indications: Allergic rhinitis, unspecified seasonality, unspecified trigger Use 2 Sprays in each nostril once daily. Rinse mouth after use. 04/24/2024 07/19/2024 Discontinued (Course of therapy completed) Budesonide / formoterol (20 sources) Corticosteroid, beta2-Adrenergic Agonist Start: 10-28-2023 End: 02-01-2024 take 2 puff(s) by inhalation twice daily budesonide-formote rol (SYMBICORT) 160-4.5 mcg/actuation inhaler Indications: Asthma-COPD overlap syndrome (HCC) , Centrilobular emphysema (HCC) Inhale 2 Puffs as instructed two times a day. 10.2 g 5 10/28/2023 02/01/2024 Discontinued (Not on Formulary) Start: 10-28-2023 take 2 puff(s) by in halation twice daily budesonide-formoterol (SYMBICORT) 160-4.5 mcg/actuation inhaler Indications: Asthma-COPD overlap syndrome (HCC) , Centrilobular emphysema (HCC) Inhale 2 Puffs as instructed two times a day. 10.2 g 5 10/28/2023 Active Start: 10-28-2023 take 2 puff(s) by in halation twice daily budesonide-formoterol (SYMBICORT) 160-4.5 mcg/actuation inhaler Indications: Asthma-COPD overlap syndrome , Centrilobular emphysema (HCC) Inhale 2 Puffs as instructed two times a day. 10.2 g 5 10/28/2023 Active Start: 09-06-2023 take 2 puff(s) by in halation twice daily budesonide-formoterol (SYMBICORT) 160-4.5 mcg/actuation inhaler Indications: Asthma-COPD overlap syndrome , Centrilobular emphysema (HCC) Inhale 2 Puffs as instructed two times a day. 10.2 g 5 09/06/2023 Active Start: 06-28-2023 End: 09-06-2023 take 2 puff(s) by inhalation twice daily budesonide-formoterol (SYMBICORT) 160-4.5 mcg/actuation inhaler Indications: Asthma-COPD overlap syndrome , Centrilobular emphysema (HCC) Inhale 2 Puffs as instructed twice daily. 10.2 g 5 06/28/2023 09/06/2023 Discontinued Start: 06-28-2023 take 2 puff(s) by in halation twice daily budesonide-formoterol (SYMBICORT) 160-4.5 mcg/actuation inhaler Indications: Asthma-COPD overlap syndrome , Centrilobular emphysema (HCC) Inhale 2 Puffs as instructed twice daily. 10.2 g 5 06/28/2023 Active Start: 08-01-2021 End: 06-28-2023 take 2 puff(s) by inhalation twice daily budesonide-formoterol (SYMBICORT) 160-4.5 mcg/actuation inhaler Indications: Asthma-COPD overlap syndrome , Centrilobular emphysema (HCC) Inhale 2 Puffs as instructed twice daily. 10.2 g 5 08/01/2021 06/28/2023 Discontinued Start: 08-01-2021 take 2 puff(s) by in halation twice daily budesonide-formoterol (SYMBICORT) 160-4.5 mcg/actuation inhaler Indications: Asthma-COPD overlap syndrome (HCC) , Centrilobular emphysema (HCC) Inhale 2 Puffs as instructed twice daily. 10.2 g 5 08/01/2021 Active Start: 03-06-2021 End: 08-01-2021 take 2 puff(s) by inhalation twice daily budesonide-formoterol (SYMBICORT) 160-4.5 mcg/actuation inhaler Indications: Asthma-COPD overlap syndrome (HCC) , Centrilobular emphysema (HCC) Inhale 2 Puffs as instructed twice daily. 10.2 Inhaler 2 03/06/2021 08/01/2021 Discontinued Start: 08-08-2019 End: 11-16-2024 Budesonide-Formoterol (Symbi yang) 160-4.5 mcg/actuation HFA aerosol inhaler Discontinued 2 NMA INHALATION TWICE A DAY August 08, 2019 12:00am November 16, 2024 1:08pm breathing Start: 08-08-2019 End: 11-16-2024 Budesonide-Formoterol (Symbi yang) 160-4.5 mcg/actuation HFA aerosol inhaler Discontinued 2 NMA INHALATION TWICE A DAY August 08, 2019 1:00am November 16, 2024 2:08pm breathing Start: 08-08-2019 End: 11-16-2024 Budesonide-Formoterol (Symbi yang) 160-4.5 mcg/actuation HFA aerosol inhaler Discontinued 2 NMA INHALATION TWICE A DAY August 08, 2019 1:00am November 16, 2024 2:08pm Start: 09-09-2018 End: 08-08-2019 Budesonide-Formoterol 1 INHA LER inhaler Discontinued 2 NMA INHALATION TWICE A DAY September 09, 2018 12:00am August 08, 2019 11:22am Start: 09-09-2018 End: 08-08-2019 take 1 puff(s) by inhalation twice daily Budesonide-Formoterol (Symbicort) 160-4.5 mcg/actuation HFA aerosol inhaler Active 2 PUFF INHALATION TWICE A DAY August 08, 2019 1:00am Comment on above: Inhale 2 Puffs as in structed twice daily. Inhale 2 Puffs as in structed two times a day. calcium carbonate-vit D3-min (5 sources) Start: 07-11-2024 End: 01-13-2025 calcium carbonate-vit D3-min Discontinued 2 {tbl} PO DAILY July 10, 2024 11:00pm January 13, 2025 9:43am vitamin Start: 07-11-2024 End: 01-13-2025 calcium carbonate-vit D3-min Discontinued 2 {tbl} PO DAILY July 11, 2024 12:00am January 13, 2025 10:43am vitamin Start: 07-11-2024 End: 01-13-2025 calcium carbonate-vit D3-min Discontinued 2 {tbl} PO DAILY July 11, 2024 12:00am January 13, 2025 10:43am carvedilol 12.5 mg oral tablet (20 sources) alpha-Adrenergic Taras, beta-Adrenergic Taras Start: 02-18-2021 End: 01-30-2025 take 1 tablet by mouth twice daily Carvedilol 12.5 mg tablet Discontinued 12.5 mg PO TWICE A DAY 180 4 December 24, 2023 2:18pm January 30, 2025 9:51am blood pressure Start: 03-04-2020 End: 02-18-2021 take 1 tablet by mouth twice daily Carvedilol 25 mg tablet Discontinued 25 mg PO TWICE A DAY 180 3 August 02, 2020 1:42pm February 18, 2021 12:22pm Start: 08-08-2019 End: 03-04-2020 Carvedilol 25 mg tablet Disc ontinued 37.5 mg PO TWICE A DAY August 08, 2019 11:21am March 04, 2020 10:09am Start: 08-08-2019 End: 03-04-2020 take 37.5 mg by mouth twice daily Carvedilol Discontinued 37.5 MG PO TWICE A DAY August 08, 2019 12:21pm March 04, 2020 11:09am Start: 09-09-2018 End: 08-08-2019 take 2 tablets by mouth twice daily Carvedilol 25 MG tablet Discontinued 50 mg PO TWICE A DAY September 09, 2018 12:00am August 08, 2019 11:27am Start: 09-09-2018 End: 08-08-2019 take 50 mg by mouth twice daily Carvedilol Discontinue d 50 MG PO TWICE A DAY September 09, 2018 1:00am August 08, 2019 12:27pm Comment on above: Take 1 tablet by hawk twice daily. celecoxib 200 mg oral capsule (14 sources) Nonsteroidal Anti-inflammatory Drug Start: 3 End: take 1 capsule by mouth once celecoxib (CELEBREX) 200 mg capsule Take 1 capsule by mouth once daily. Per pain management. 0 01/13/2023 07/28/2023 Discontinued Start: 08-01-2021 End: 07-08-2022 take 1 capsule by mouth twice daily as needed for pain celecoxib (CELEBREX) 100 mg capsule Indications: Primary osteoarthritis of both knees , Chronic low back pain, unspecified back pain laterality, unspecified whether sciatica present Take 1 capsule by mouth twice daily as needed for pain. 60 capsule 2 08/01/2021 07/08/2022 Discontinued Start: 04-30-2021 End: 05-20-2021 take 1 capsule by mouth twice daily celecoxib (CELEBREX) 100 mg capsule Indications: Acute pain of left knee Take 1 capsule by mouth twice daily for 15 days. 30 capsule 04/30/2021 05/20/2021 Discontinued End: 01-13-2023 CELECOXIB ORAL Take by mouth once daily. Pt unsure of strength 0 01/13/2023 Discontinued Comment on above: Take 1 capsule by mo ut twice daily as needed for pain. Take 1 capsule by mo [facility] once daily. Per pain management. Take by mouth once d aily. Pt unsure of strength dapagliflozin 10 mg oral tablet (14 sources) Sodium-Glucose Cotransporter 2 Inhibitor Start: 11-16-19 End: 03-05-20 take 1 tablet by mouth once daily Dapagliflozin Propanediol (Farxiga) 10 mg tablet Discontinued 10 mg PO DAILY January 12, 2025 11:00pm March 05, 2025 4:22pm diabetes 1 ml denosumab 60 mg/ml prefilled syringe (20 sources) RANK Ligand Inhibitor Start: 10-25-19 End: 11-16-19 Denosumab (Prolia) 60 mg/mL syringe Discontinued 60 mg SC every 6 months October 25, 2023 12:00am November 16, 2024 1:05pm Will start next Wednesday Start: 10-20-2023 End: 10-14-2024 denosumab 60 mg injection (P ROLIA) desoximetasone 2.5 mg/ml topical cream (20 sources) Corticosteroid Start: 01-05-2017 End: 01-13-2025 Desoximetasone 0.25 % cream Discontinued 1 NMA TOPICAL DAILY as needed for skin irritation July 10, 2024 11:00pm January 13, 2025 9:39am Comment on above: Apply 1 application to affected area once daily as needed (Apply sparingly to neck, face. Avoid eyes and mouth.). enteric contrast (will be provided with radiology test) (1 source) Start: 07-28-2023 End: 07-28-2023 take 1 dose by mouth once, then take 1 dose by mouth once enteric contrast (will be provided with radiology test) Indications: Abdominal mass, left lower quadrant , Left lower quadrant abdominal pain Take 1 Each by mouth one time only for [address] ABD/PEL WO Routine order Administer, As Directed One Time Only, via Oral, Rectal, both Oral and Rectal, Enteric Tube, Stoma or Indwelling Catheter, Enteric Contrast as designated per enteric contrast guidelines 1 Each 0 07/28/2023 07/28/2023 Comment on above: Take 1 Each by mouth one time only for [address] ABD/PEL WO Routine order Administer, As Directed One Time Only, via Oral, Rectal, both Oral and Rectal, Enteric Tube, Stoma or Indwelling Catheter, Enteric Contrast as designated per enteric contrast guidelines fluconazole 150 mg oral tablet (5 sources) Azole Antifungal Start: 07-28-2023 fluconazole (DIFLUCAN) 150 mg tablet Indications: Subacute vaginitis Once. Repeat in 1 week if needed. 2 tablet 1 07/28/2023 Active Comment on above: Once. Repeat in 1 we ek if needed. fluticasone propionate 0.05 mg/actuat metered dose nasal spray (20 sources) Corticosteroid Start: 11-26-2020 End: 04-26-2024 take 50 ug nasal route once daily Fluticasone Propionate (Allergy Relief (Fluticasone)) 50 mcg/actuation spray,suspension Discontinued 1 NMA INTRANASAL DAILY November 26, 2020 12:00am April 26, 2024 12:40pm administer into each nostril Start: 11-26-2020 take 1 spray(s) nasa l route once daily Fluticasone Propionate (Allergy Relief (Fluticasone)) 50 mcg/actuation spray,suspension Active 1 SPRAY INTRANASAL DAILY November 26, 2020 1:00am administer into each nostril take 1 spray(s) nasa l route once daily fluticasone (FLONASE) 50 mcg/actuation nasal spray Use 1 [place] in each nostril once daily. Active fluticasone / salmeterol (12 sources) Corticosteroid, beta2-Adrenergic Agonist Start: 02-01-2024 End: 07-19-2024 take 1 puff(s) by mouth twice daily fluticasone-salmeterol (ADVAIR DISKUS) 250-50 mcg/dose inhaler Inhale 1 Puff as instructed two times a day. Rinse and gargle mouth after use with water. 1 Each 02/01/2024 07/19/2024 Discontinued (Course of therapy completed) Start: 02-01-2024 take 1 puff(s) by mo uth twice daily fluticasone-salmeterol (ADVAIR DISKUS) 250-50 mcg/dose inhaler Inhale 1 Puff as instructed two times a day. Rinse and gargle mouth after use with water. 1 Each 5 02/01/2024 Active End: 07-19-2024 take 1 puff(s) by inhalation twice daily fluticasone-salmeterol (WIXELA INHUB) 250-50 mcg/dose inhaler Inhale 1 Puff as instructed two times a day. 07/19/2024 Discontinued gabapentin 300 mg oral capsule (9 sources) Anti-epileptic Agent Start: 08-08-2019 End: 03-04-2020 take 1 capsule by mouth at bedtime Gabapentin 300 mg capsule Discontinued 300 mg PO AT BEDTIME August 08, 2019 12:00am March 04, 2020 10:12am ibandronic acid 150 mg oral tablet (20 sources) Bisphosphonate Start: 10-30-2020 End: 12-29-2022 take 1 tablet by mouth every month Ibandronate 150 mg tablet Indications: Osteoporotic compression fracture of spine with routine healing Take 1 tablet by mouth once every month. Take as directed. 3 tablet 3 10/30/2020 11/21/2021 Discontinued Start: 09-09-2018 End: 01-07-2023 take 1 tablet by mouth every 30 days Ibandronate 150 MG tablet Discontinued 150 mg PO Q30D September 09, 2018 12:00am January 07, 2023 12:02pm Comment on above: Take 1 tablet by hawk once every month. Take as directed. 24 hr isosorbide mononitrate 60 mg extended release oral tablet (20 sources) Nitrate Vasodilator Start: End: take 1 tablet by mouth once daily, then take 1 tablet by mouth every twenty-four hours Isosorbide Mononitrate 60 mg tablet extended release 24 hr Discontinued 60 mg PO DAILY 90 March 05, 2025 4:21pm May 24, 2025 12:34pm heart Start: 08-20-2021 End: 01-22-2025 take 1 tablet by mouth once daily, then take 1 tablet by mouth every twenty-four hours Isosorbide Mononitrate 30 mg tablet extended release 24 hr Discontinued 30 mg PO DAILY 90 3 June 22, 2024 2:55pm November 16, 2024 4:59pm heart Start: 09-09-2018 End: 12-10-2020 take 1 tablet by mouth once daily Isosorbide Mononitra te 60 MG tablet Discontinued 60 mg PO DAILY September 09, 2018 12:00am December 10, 2020 1:08pm Comment on above: [facility] potassium 50 mg oral tablet (20 sources) Angiotensin 2 Receptor Taras Start: End: take 1 tablet by mouth once daily Losartan 50 mg tablet Discontinued 50 mg PO DAILY 90 March 13, 2024 1:25pm November 16, 2024 5:00pm blood pressure Start: 08-08-2019 End: 08-10-2019 Losartan 50 mg tablet Discon tinued 25 mg PO DAILY August 08, 2019 12:00am August 10, 2019 11:40am Start: 08-08-2019 End: 08-10-2019 take 25 mg by mouth once daily Losartan Discontinued 2 5 MG PO DAILY August 08, 2019 1:00am August 10, 2019 12:40pm Start: 09-09-2018 End: 08-08-2019 take 1 tablet by mouth once daily Losartan 100 MG tablet Discontinued 100 mg PO DAILY September 09, 2018 12:00am August 08, 2019 11:22am Comment on above: Take 1 tablet by hawk th once daily. meloxicam 7.5 mg oral tablet (20 sources) Nonsteroidal Anti-inflammatory Drug Start: 2 End: 3 take 1 tablet by mouth once daily Meloxicam 7.5 mg tablet Discontinued 7.5 mg PO DAILY June 18, 2022 11:00pm January 07, 2023 12:01pm Start: 01-02-2019 End: 08-08-2019 take 1 tablet by mouth once daily Meloxicam 15 MG tablet Discontinued 15 mg PO DAILY 10 January 01, 2019 11:00pm August 08, 2019 11:26am Comment on above: Take 1 tablet by hawk th once daily. Take with food. Per pain management. nitroglycerin 0.4 mg sublingual tablet (20 sources) Nitrate Vasodilator Start: 09-03-20 End: 05-24-20 take 1 tablet under the tongue once as needed Nitroglycerin 0.4 mg tablet, sublingual Discontinued 0 .ROUTE .COMPLEX 26 12January 30, 2025 9:51am May 24, 2025 12:34pm chest pain 0.4 MG SUBLINGUAL EVERY 5-15M NEEDED FOR CHEST PAIN Start: 09-03-2022 End: 12-10-2023 take 0.4 mg under the tongue once as needed Nitroglycerin Discontinued 0 .ROUTE .COMPLEX October 06, 2022 3:53pm January 07, 2023 1:15pm 0.4 MG SUBLINGUAL EVERY 5-15M NEEDED FOR CHEST PAIN Start: 08-08-2019 End: 09-03-2022 Nitroglycerin 0.4 mg tablet, sublingual Discontinued 0.4 mg SL every 5 to 15 minutes as needed for chest pain 25 March 03, 2022 5:23pm September 03, 2022 4:58pm Start: 08-08-2019 End: 09-03-2022 nitroglycerin sublingual (NI TROSTAT) 0.4 mg SL tablet Dissolve 1 tablet under the tongue. DISSOLVE ONE(1) TABLET UNDER THE TOUNGUE NEEDED FOR CHEST PAIN,EVERY 5 MIN X3 25 tablet 3 05/20/2021 Active Comment on above: Dissolve 1 tablet un sourav the tongue. DISSOLVE ONE(1) TABLET UNDER THE TOUNGUE NEEDED FOR CHEST PAIN,EVERY 5 MIN X3 [place]-3 Fatty Acids-Fish Oil 1 EACH capsule (5 sources) Start: 09-09-2018 End: 04-26-2024 [place]-3 Fatty Acids-Fish Oil 1 EACH capsule Discontinued 1 NMA PO DAILY September 09, 2018 12:00am April 26, 2024 12:40pm Start: 09-09-2018 End: 04-26-2024 [place]-3 Fatty Acids-Fish Oil 1 EACH capsule Discontinued 1 NMA PO DAILY September 09, 2018 1:00am April 26, 2024 1:40pm omeprazole 20 mg delayed release oral capsule (9 sources) Proton Pump Inhibitor Start: 09-09-2018 End: 08-08-2019 take 1 capsule by mouth once daily Omeprazole 20 MG capsule Discontinued 20 mg PO DAILY September 09, 2018 12:00am August 08, 2019 11:26am potassium chloride 20 meq extended release oral tablet (17 sources) Start: 07-13-2024 End: 07-11-2025 take 1 tablet by mouth once daily Potassium Chloride 20 mEq tablet extended release Discontinued 20 meq PO DAILY 90 August 08, 2024 2:04pm July 11, 2025 8:09am supplement predniSONE 20 mg oral tablet (8 sources) Start: 12-01-2024 End: 01-13-2025 take 2 tablets by mouth at breakfast Prednisone 20 mg Tablet Discontinued 40 mg PO WITH BREAKFAST 14 December 01, 2024 12:00am January 13, 2025 9:40am Start on 12/02/2024 Start: 09-05-2021 End: 03-06-2022 take 2 tablets by mouth once daily predniSONE (DELTASONE) 20 mg tablet Indications: Acute exacerbation of COPD with asthma (HCC) Take 2 tablets by mouth once daily. 0 09/05/2021 03/06/2022 Discontinued (Course of therapy completed) Comment on above: Take 2 tablets by mo [facility] once daily. spironolactone 25 mg oral tablet (10 sources) Aldosterone Antagonist Start: 2023 End: 2023 take 1 tablet by mouth once daily Spironolactone 25 mg tablet Discontinued 25 mg PO DAILY December 08, 2023 12:00am April 26, 2024 12:41pm tiotropium 0.018 mg inhalation powder (20 sources) Anticholinergic Start: 2023 End: 2023 take 1 capsule by inhalation once daily tiotropium (SPIRIVA WITH HANDIHALER) 18 mcg inhalation capsule 1 capsule once daily. INHALE CONTENTS OF 1 CAPSULE INSTRUCTED 90 capsule 3 10/28/2023 07/19/2024 Discontinued Start: 08-08-2019 End: 07-11-2024 take 1 capsule by inhalation at bedtime Tiotropium Makinen (Spiriva With Handihaler) 18 mcg capsule, w/inhalation device Discontinued 1 NMA INHALATION AT BEDTIME August 08, 2019 12:00am July 11, 2024 6:03pm Start: 08-08-2019 End: 07-28-2023 take 1 capsule by inhalation once daily tiotropium (SPIRIVA WITH HANDIHALER) 18 mcg inhalation capsule Indications: Moderate persistent asthma without complication 1 capsule once daily. INHALE CONTENTS OF 1 CAPSULE INSTRUCTED 30 capsule 11 10/30/2020 03/06/2022 Discontinued Start: 09-09-2018 End: 08-08-2019 take 4 g by inhalation once daily Tiotropium Makinen 4 GM mist Discontinued 4 g IH DAILY September 09, 2018 12:00am August 08, 2019 11:21am Comment on above: 1 capsule once daily . INHALE CONTENTS OF 1 CAPSULE INSTRUCTED zolpidem tartrate 5 mg oral tablet (16 sources) gamma-Aminobutyric Acid-ergic Agonist Start: 05-20-2021 End: 07-08-2022 take 1 tablet by mouth at bedtime as needed zolpidem (AMBIEN) 5 mg tablet Indications: Other insomnia Take 1 tablet by mouth at bedtime as needed for sedation for up to 90 days. 14 tablet 05/20/2021 07/08/2022 Discontinued Start: 08-08-2019 End: 08-20-2021 take 1 tablet by mouth at bedtime as needed Zolpidem (Ambien) 10 mg tablet Discontinued 10 mg PO AT BEDTIME as needed 0 August 08, 2019 12:00am August 20, 2021 1:02pm Comment on above: Take 1 tablet by hawk th at bedtime as needed for sedation for up to 90 days. Problems Active Problems Problem Classification Problem Date Documented Da te Episodic/Chronic Abdominal pain (2 sources) Left lower quadrant pain; Translations: [Left lower quadrant pain] 07-28-2023 Episodic Asthma (20 sources) Asthma; Translations: [Unspecified asthma, uncomplicated] Onset: 06-09-2005 Resolved: 08-01-2021 08-08-2019 Chronic Chronic obstructive pulmonary disease and bronchiectasis (20 sources) Chronic obstructive pulmonary disease, unspecified; Translations: [Asthma-chronic obstructive pulmonary disease overlap syndrome] Onset: 08-18-2006 Resolved: 01-06-2018 Chronic Comment on above: INHALERS Conduction disorders (20 sources) Left bundle branch block; Translations: [Left bundle-branch block, unspecified] Onset: 03-05-2015 03-05-2015 Chronic Congestive heart failure; nonhypertensive (20 sources) Chronic systolic (congestive) heart failure; Translations: [Heart failure, unspecified] Onset: 01-22-2025 07-19-2024 Chronic Coronary atherosclerosis and other heart disease (20 sources) Atherosclerotic heart disease of [place] coronary artery with other forms of angina pectoris; Translations: [Ischemic cardiomyopathy] Onset: 07-03-2016 Chronic Disorders of lipid metabolism (20 sources) Other hyperlipidemia; Translations: [Hyperlipidemia] Onset: 08-04-2005 Chronic E Codes: Fall (9 sources) Fall; Translations: [Unspecified fall, initial encounter] 05-16-2023 Episodic Esophageal disorders (20 sources) Gastro-esophageal reflux disease without esophagitis; Translations: [Gastroesophageal reflux disease] Onset: 06-09-2005 06-09-2005 Chronic Essential hypertension (20 sources) Essential (primary) hypertension; Translations: [Essential hypertension] Onset: 08-16-2008 Chronic Gastrointestinal hemorrhage (1 source) Black feces; Translations: [Melena] Episodic Headache; including migraine (7 sources) Headache; Translations: [Headache] 01-13-2025 Episodic Heart valve disorders (14 sources) Mitral valve regurgitation; Translations: [Nonrheumatic mitral (valve) insufficiency] 10-25-2023 Chronic Hypertension with complications and secondary hypertension (10 sources) Renovascular hypertension; 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] Chronic Comment on above: Lt Renal stent 2008 Inflammatory diseases of female pelvic organs (1 source) Subacute vaginitis; Translations: [Subacute and chronic vaginitis] 07-28-2023 Episodic Malaise and fatigue (6 sources) Weakness; Translations: [Asthenia] Onset: 11-08-2025 11-08-2025 Episodic Nonspecific chest pain (19 sources) Chest discomfort; Translations: [Other chest pain] Episodic Occlusion or stenosis of precerebral arteries (3 sources) Bilateral stenosis of carotid arteries; Translations: [Occlusion and stenosis of bilateral carotid arteries] Chronic Osteoarthritis (20 sources) Degenerative joint disease involving multiple joints; Translations: [Polyosteoarthritis, unspecified] Onset: 06-09-2005 Resolved: 01-05-2012 07-08-2017 Chronic Other aftercare (1 source) Patient encounter status; Translations: [Other senior care (current) drug therapy] 07-19-2024 Episodic Other circulatory disease (20 sources) Disorder of carotid artery; Translations: [Disorder of arteries and arterioles, unspecified] Onset: 07-03-2016 07-08-2017 Chronic Other circulatory disease (3 sources) Disorder of arteries and arterioles, unspecified; Translations: [Unspecified disorders of arteries and arterioles] Chronic Other gastrointestinal disorders (2 sources) Mass of left lower quadrant of abdomen; Translations: [Left lower quadrant abdominal swelling, mass and lump] 07-28-2023 Episodic Other injuries and conditions due to external causes (3 sources) Other specified injuries of thorax, initial encounter; Translations: [Contusion of rib on left side] 05-24-2023 Episodic Other liver diseases (9 sources) Liver cyst; Translations: [Other specified diseases of liver] 12-10-2020 Chronic Other nervous system disorders (7 sources) Unable to walk; Translations: [Difficulty in walking, not elsewhere classified] 01-13-2025 Chronic Other non-traumatic joint disorders (9 sources) Hip pain; Translations: [Pain in right hip] 2019 Episodic Other non-traumatic joint disorders (1 source) Pain in left knee; Translations: [Pain in joint, lower leg] 04-30-2021 Episodic Other upper respiratory disease (20 sources) Allergic rhinitis; Translations: [Allergic rhinitis, unspecified] Onset: 06-09-2005 Chronic [place]inda-; endo-; and myocarditis; cardiomyopathy (except that caused by tuberculosis or sexually transmitted disease) (20 sources) Other cardiomyopathies; Translations: [Cardiomyopathy] Onset: 08-04-2005 07-08-2017 Chronic Residual codes; unclassified (2 sources) Insomnia due to medical condition; Translations: [Insomnia due to medical condition] Onset: 05-17-2013 Chronic Residual codes; unclassified (1 source) Insomnia co-occurrent and due to medical condition; Translations: [Insomnia due to medical condition] 01-22-2025 Chronic Residual codes; unclassified (9 sources) Edema of right lower limb; Translations: [Localized edema] 09-10-2018 Episodic Residual codes; unclassified (10 sources) Past history of procedure; Translations: [Other specified postprocedural states] 11-16-2024 Episodic Respiratory failure; insufficiency; arrest (adult) (7 sources) Acute respiratory failure; Translations: [Acute respiratory failure with hypoxia] 12-09-2024 Episodic Superficial injury; contusion (20 sources) Contusion of rib; Translations: [Contusion of left front wall of thorax, initial encounter] 05-16-2023 Episodic Syncope (1 source) Near syncope; Translations: [Syncope and collapse] Episodic Unclassified (2 sources) Asthma-COPD overlap syndrome (HCC); Translations: [Asthma-COPD overlap syndrome (HCC)] Onset: 08-01-2021 Unclassified (1 source) Unknown / UNK(Unknown) Onset: 09-14-2017 Past or Other Problems Problem Classification Problem Date Documented Date Episodic/Chronic Abdominal hernia (20 sources) Spigelian hernia; Translations: [Ventral hernia without obstruction or gangrene] Onset: 08-16-2023 Resolved: 01-22-2025 08-16-2023 Episodic Conditions associated with dizziness or vertigo (14 sources) Dizziness and giddiness; Translations: [Dizziness] Onset: 01-15-2025 01-13-2025 Episodic Fluid and electrolyte disorders (20 sources) Hypo-osmolality and hyponatremia; Translations: [Chronic hyponatremia] Onset: 07-01-2011 04-03-2024 Episodic Genitourinary symptoms and ill-defined conditions (20 sources) Female stress incontinence; Translations: [Stress incontinence (female) (male)] Onset: 10-02-2009 Resolved: 03-06-2015 03-06-2015 Chronic Immunizations and screening for infectious disease (8 sources) Encounter for immunization; Translations: [Needs influenza immunization] Onset: 07-26-2025 Episodic Menopausal disorders (20 sources) Atrophic vaginitis; Translations: [Postmenopausal atrophic vaginitis] Onset: 10-02-2009 Resolved: 01-22-2025 10-02-2009 Chronic Other and unspecified benign neoplasm (20 sources) Benign neoplasm of colon; Translations: [Benign neoplasm of colon, unspecified] Onset: 04-10-2008 04-10-2008 Episodic Other and unspecified benign neoplasm (20 sources) History of polyp of colon; Translations: [Personal history of colonic polyps] Onset: 07-16-2008 Resolved: 06-20-2010 06-20-2010 Episodic Other circulatory disease (20 sources) H/O: kidney disease; Translations: [Personal history of other diseases of the circulatory system] Onset: 08-23-2009 Resolved: 03-06-2015 03-06-2015 Episodic Other connective tissue disease (20 sources) Ganglion cyst; Translations: [Ganglion, unspecified site] Onset: 07-26-2012 Resolved: 05-17-2013 05-17-2013 Episodic Other screening for suspected conditions (not mental disorders or infectious disease) (20 sources) Cancer cervix screening status; Translations: [Encounter for screening for malignant neoplasm of cervix] Onset: 08-28-2008 Resolved: 05-02-2015 01-05-2012 Episodic Pathological fracture (20 sources) Pathological fracture of vertebra due to osteoporosis; Translations: [Other osteoporosis with current pathological fracture, vertebra(e), subsequent encounter for fracture with routine healing] Onset: 07-13-2017 07-13-2017 Episodic Prolapse of female genital organs (20 sources) Uterine prolapse; Translations: [Uterovaginal prolapse, unspecified] Onset: 12-21-2011 Resolved: 03-06-2015 03-06-2015 Chronic Residual codes; unclassified (20 sources) Insomnia; Translations: [Insomnia, unspecified] Onset: 05-17-2013 05-17-2013 Episodic Screening and history of mental health and substance abuse codes (6 sources) Encounter for screening for depression; Translations: [Encounter for screening examination for other mental health and behavioral disorders] Onset: 01-22-2025 01-22-2025 Episodic Spondylosis; intervertebral disc disorders; other back problems (20 sources) Degeneration of intervertebral disc; Translations: [Degeneration of intervertebral disc] Resolved: 03-06-2015 03-06-2015 Chronic Spondylosis; intervertebral disc disorders; other back problems (20 sources) Low back pain; Translations: [Lumbago] Onset: 05-17-2013 Resolved: 01-05-2017 09-29-2021 Episodic Results Test Name Value Interpretation Reference Range Facility Absolute lymphocyte countOrd ered By: Herlinda Ureña on 11-08-2025 Lymphocytes Auto (Unsp spec) [#/Vol] 1.61 10*3/uL 0.83-4.51 [facility] Absolute neutrophil countOrd ered By: Herlinda Ureña on 11-08-2025 Neutrophils (Bld) [#/Vol] 5.0 10*3/uL 2.0-7.7 [facility] Anion gap in Serum or Plasma Ordered By: Edy Drew on 11-08-2025 Anion gap [Moles/Vol] 9 mmol/L 7-18 [facility] Automated lymphocyte count a s percentage of total leukocytesOrdered By: Herlinda Ureña on 11-08-2025 Lymphocytes/100 WBC Auto (Unsp spec) 21.6 % 19-41 [facility] Basic Metabolic Profile (BMP )on 11-08-2025 BUN/CRE 29.8 RATIO High 10-20 [facility] Comment on above: Performed By: #### L 500.2500 #### [facility] [address] [place], [address] Calcium [Mass/Vol] 9.8 mg/dL Normal 7.6-11.0 [facility] Comment on above: Performed By: #### L 500.2500 #### [facility] [address] [place], [address] Chloride [Moles/Vol] 97 mmol/L Normal 96-106 [facility] Comment on above: Performed By: #### L 500.2500 #### [facility] [address] [place], [address] CO2 [Moles/Vol] 28.4 mmol/L Normal 20.0-29.0 [facility] Comment on above: Performed By: #### L 500.2500 #### [facility] [address] [place], [address] Creatinine [Mass/Vol] 0.91 mg/dL Normal 0.70-1.20 [facility] Comment on above: Performed By: #### L 500.2500 #### [facility] [address] [place], [address] GAP 9 Normal 7-18 [facility] Comment on above: Performed By: #### L 500.2500 #### [facility] [address] [place], [address] GFR/1.73 sq M.predicted among non-blacks MDRD (S/P/Bld) [Vol rate/Area] 61 mL/min/{1.73_m2} Normal >60 [facility] Comment on above: Result Comment: mL/m in/1.73m2 CKD-EPI Creatinine Equation (2020) Performed By: #### L 500.2500 #### [facility] [address] [place], [address] Glucose [Mass/Vol] 95 mg/dL Normal 70-99 [facility] Comment on above: Performed By: #### L 500.2500 #### [facility] [address] [place], [address] Potassium [Moles/Vol] 4.1 mmol/L Normal 3.5-5.1 [facility] Comment on above: Result Comment: Hemo lysis present, Results??could be affected. ?? Performed By: #### L 500.2500 #### [facility] [address] [place], [address] Sodium [Moles/Vol] 134 mmol/L Low 135-145 [facility] Comment on above: Performed By: #### L 500.2500 #### [facility] [address] [place], [address] Urea nitrogen [Mass/Vol] 27 mg/dL High 4-19 [facility] Comment on above: Performed By: #### L 500.2500 #### [facility] [address] [place], [address] Basophil percentageOrdered B y: Herlinda Ureña on 11-08-2025 Basophils/100 WBC (Bld) 0.5 % 0-1 [facility] Blood hemoglobin measurement (mass/volume)Ordered By: Herlinda Ureña on 11-08-2025 Hemoglobin (Bld) [Mass/Vol] 13.5 g/dL 12.0-15.0 [facility] CBC W/Diff, Automatedon Absolute Lymph 1.61 X10 3/uL Normal 0.83-4.51 [facility] Comment on above: Performed By: #### L 501.9520, L100.0100 #### [facility] [address] [place], [address] Absolute Neut 5.0 X10 3/uL Normal 2.0-7.7 [facility] Comment on above: Performed By: #### L 501.9520, L100.0100 #### [facility] [address] [place], [address] Basophils/100 WBC (Bld) 0.5 % Normal 0-1 [facility] Comment on above: Performed By: #### L 501.9520, L100.0100 #### [facility] [address] [place], [address] Eosinophils/100 WBC (Bld) 2.2 % Normal 0-5 [facility] Comment on above: Performed By: #### L 501.9520, L100.0100 #### [facility] [address] [place], [address] Erythrocyte distribution width (RBC) [Ratio] 12.7 % Normal 11.6-14.6 [facility] Comment on above: Performed By: #### L 501.9520, L100.0100 #### [facility] [address] [place], [address] Hematocrit (Bld) [Volume fraction] 38.7 % Normal 37-47 [facility] Comment on above: Performed By: #### L 501.9520, L100.0100 #### [facility] [address] [place], [address] Hemoglobin (Bld) [Mass/Vol] 13.5 g/dL Normal 12.0-15.0 [facility] Comment on above: Performed By: #### L 501.9520, L100.0100 #### [facility] [address] [place], [address] IG% 0.400 Normal 0.0-0.9 [facility] Comment on above: Result Comment: IG% - Immature Granulocytes (promyelocytes, myelocytes and metamyelocytes) > 1% indicates that a LEFT SHIFT is Present. Performed By: #### L 501.9520, L100.0100 #### [facility] [address] [place], [address] Lymphocytes/100 WBC (Bld) 21.6 % Normal 19-41 [facility] Comment on above: Performed By: #### L 501.9520, L100.0100 #### [facility] [address] [place], [address] MCH (RBC) [Entitic mass] 34.7 pg High 27.0-32.0 [facility] Comment on above: Performed By: #### L 501.9520, L100.0100 #### [facility] [address] [place], [address] MCHC (RBC) [Mass/Vol] 34.9 g/dL Normal 32-36 [facility] Comment on above: Performed By: #### L 501.9520, L100.0100 #### [facility] [address] [place], [address] MCV (RBC) [Entitic vol] 99.5 fL High 81-99 [facility] Comment on above: Performed By: #### L 501.9520, L100.0100 #### [facility] [address] [place], [address] Monocytes/100 WBC (Bld) 8.3 % Normal 0-10 [facility] Comment on above: Performed By: #### L 501.20, L100.0100 #### [facility] [address] [place], [address] Neutrophils/100 WBC (Bld) 67.0 % Normal 47-70 [facility] Comment on above: Performed By: #### L 501.9519, L100.0100 #### [facility] [address] [place], [address] Nucleated RBC (Bld) [#/Vol] 0 10*3/uL Normal 0-5 [facility] Comment on above: Performed By: #### L 501.9519, L100.0100 #### [facility] [address] [place], [address] Platelet mean volume (Bld) [Entitic vol] 9.8 fL Normal 6.2-12.0 [facility] Comment on above: Performed By: #### L 501.9519, L100.0100 #### [facility] [address] [place], [address] Platelets (Bld) [#/Vol] 165 10*3/uL Normal 150-450 [facility] Comment on above: Performed By: #### L 501.9519, L100.0100 #### [facility] [address] [place], [address] RBC (Bld) [#/Vol] 3.89 10*6/uL Low 4.2-5.4 [facility] Comment on above: Performed By: #### L 501.9519, L100.0100 #### [facility] [address] [place], [address] RDW SD 46.5 fl High 35.1-43.9 [facility] Comment on above: Performed By: #### L 501.9519, L100.0100 #### [facility] [address] [place], [address] WBC (Bld) [#/Vol] 7.4 10*3/uL Normal 4.4-11.0 [facility] Comment on above: Performed By: #### L 501.9520, L100.0100 #### [facility] [address] [place], [address] Cardiology Visit Reporton Cardiology Visit Report [facility] [address] [place], [place] [address] OFFICE VISIT Date of Service: 11/08/25 MR#: [id number] Acct: [id number] Name: NANO AGUILAR Rep #: [id number] : 1940 Provider: STEFANO Goodman rts Age/Sex: 85/F [place] [facility] Status: Signed HPI HPI History of Present Illness Details: This is an 85-year-old female who presents today for cardiovascular follow-up visit. She has a history of nonischemic cardiomyopathy, hypertension, dyslipidemia, coronary artery disease and mitral valve regurgitation. From a cardiac standpoint, the patient is doing well. She denies any palpitations, chest pain, pressure or heaviness. She does acknowledge SOB-she attributes this to her COPD. She states this is nothing new or worsening. She denies Orthopnea, and PND. She does not have bleeding issues; no blood in urine, stool, or nosebleeds. She denies any decrease in energy level, myalgias, or claudication. She does not have edema, or sudden weight gain. She denies lightheadedness, dizziness, syncopal or near syncopal episodes, and headaches. She does acknowledge getting weaker. Intake Vital Signs 05/24/25 09:19 11/08/25 07:50 11/08/25 13:10 11/08/25 13:13 Height 5 ft 5 in 5 ft 5 in Weight: 145 lb BMI 24.1 BP 185/81 H 174/80 H 124/85 H Blood Pressure Location Rt brachial Rt brachial Lt brachial Position Sitting Sitting Sitting Respiration 18 Pulse 74 Pulse Source Monitor Monitor Pulse Oximetry (%) 95 Intake Visit Reasons: 6 M FU Cupola Charger Required: No Accompanied by: Self The most recent Systolic Blood Pressure reading (HTN, CKD, CAD, DM): Systolic <130mmHg (3074F) The most recent Diastolic Blood Pressure reading (HTN, CKD, CAD, DM): Diastolic 80-89 mmHg (3079F) Is patient in pain?: No Allergies adhesive tape Adverse Reaction (Verified 11/08/25 13:23) Itching latex Adverse Reaction (Verified 11/08/25 13:23) Rash nabumetone (From Relafen) Adverse Reaction (Verified 11/08/25 13:23) Nausea ramipril (From Altace) Adverse Reaction (Verified 11/08/25 13:23) Other sulfamethoxazole (From Bactrim) Adverse Reaction (Verified 11/08/25 13:23) Nausea trimethoprim (From Bactrim) Adverse Reaction (Verified 11/08/25 13:23) Nausea Medications ???Medication ???Instructions ???Recorded ???Confirmed ???Type aspirin 81 mg tablet,delayed 81 mg PO DAILY@0800 heart health 1 11/10/17 11/08/25 History release loratadine 10 mg tablet 10 mg PO DAILY allergies 09/09/18 11/08/25 History montelukast 10 mg tablet 10 mg PO DAILY allergies 09/09/18 11/08/25 History multivitamin with folic acid 400 1 tab PO DAILY vitamin 09/09/18 History mcg tablet pantoprazole 20 mg tablet,delayed 20 mg PO DAILY reflux 08/08/19 History release cholecalciferol (vitamin D3) 10 10 mcg PO DAILY vitamin 07/11/24 0 11/08/25 History mcg (400 unit) chewable tablet albuterol sulfate 90 mcg/actuation 2 puff inhalation Q4 PRN wheezin g 11/16/24 11/08/25 History aerosol inhaler fluticasone fur. 100 mcg-umeclid 1 ea inhalation DAILY breathing 11/08/25 History 62.5 mcg-vilant 25 mcg inhalat.powder (Trelegy Ellipta) calcium 600 mg (as 2 tab PO DAILY VITAMIN 01/13/25 History carbonate)-vitamin D3 10 mcg (400 unit) tablet atorvastatin 40 mg tablet 40 mg PO QHS #90 TABLETS 01/19/25 11/08/25 Rx carvedilol 12.5 mg tablet 12.5 mg PO BID blood pressure #180 01/30/25 11/08/25 Rx tabs dapagliflozin propanediol 10 mg 10 mg PO DAILY diabetes #90 tabs 0 03/05/25 11/08/25 Rx tablet (Farxiga) sacubitril 49 mg-valsartan 51 mg 1 tab PO BID heart #180 tabs 03/0511/08/25 Rx tablet (Entresto) nitroglycerin 0.4 mg sublingual See Rx Instructions .Route 5 11/08/25 Rx tablet .COMPLEX chest pain #25 tabs potassium chloride 20 mEq 20 meq PO DAILY supplement #90 tab s 07/11/25 11/08/25 Rx tablet,extended release furosemide 40 mg tablet (Lasix) 40 mg PO BID diuretic #60 tabs 07/2811/08/25 Rx isosorbide mononitrate 60 mg 60 mg PO DAILY heart #90 tabs 12/0 02/2511/08/25 Rx tablet,extended release 24 hr hydrocodone 5 mg-acetaminophen 300 1 tab PO QHS PRN 11/08/25 History mg tablet Medication Reconciliation completed?: Yes Ejection fraction %: 20 [facility] Medical History COPD exacerbation CHF exacerbation Acute hypoxic respiratory failure Osteoarthritis Osteoporosis Non-smoker Irregular heart beat Hypertension Congestive heart failure (CHF) Alcohol abuse Use of cane as ambulatory aid Mitral regurgitation CAD (coronary artery disease) Wears hearing aid Wears glasses Alcohol use Arthritis High cholesterol Excessive bleeding (more content not included)... Normal [facility] Eosinophil percentageOrdered By: Herlinda Ureña on 11-08-2025 Eosinophils/100 WBC (Bld) 2.2 % 0-5 [facility] Erythrocyte distribution wid th ratioOrdered By: Herlinda Ureña on 11-08-2025 Erythrocyte distribution width (RBC) [Ratio] 12.7 % 11.6-14.6 [facility] Erythrocyte distribution wid th standard deviationOrdered By: Herlinda Ureña on 11-08-2025 Erythrocyte distribution width (RBC) [Ratio] 46.5 fl High 35.1-43.9 [facility] Glomerular filtration rate ( GFR) estimation/1.73 sq m using serum, plasma, or whole bOrdered By: Edy Drew on 11-08-2025 GFR/1.73 sq M.predicted among non-blacks MDRD (S/P/Bld) [Vol rate/Area] 61 mL/min/{1.73_m2} >60 [facility] Comment on above: mL/min/1.73m2 CKD-EP I Creatinine Equation (2020) Hematocrit Auto (Bld) [Volum e fraction]Ordered By: Herlinda Ureña on 11-08-2025 Hematocrit (Bld) [Volume fraction] 38.7 % 37-47 [facility] Immature granulocytes/100 WB C Auto (Bld)Ordered By: Herlinda Ureña on 11-08-2025 Immature granulocytes/100 WBC (Bld) 0.400 % 0.0-0.9 [facility] Comment on above: IG% - Immature Granu locytes (promyelocytes, myelocytes and metamyelocytes) > 1% indicates that a LEFT SHIFT is Present. MCV (mean corpuscular volume ) determinationOrdered By: Herlinda Ureña on 11-08-2025 MCV (RBC) [Entitic vol] 99.5 fL High 81-99 [facility] Mean corpuscular hemoglobin (MCH) determinationOrdered By: Herlinda Ureña on 11-08-2025 MCH (RBC) [Entitic mass] 34.7 pg High 27.0-32.0 [facility] Mean corpuscular hemoglobin concentration (MCHC) determinationOrdered By: Herlinda Ureña on 11-08-2025 MCHC (RBC) [Mass/Vol] 34.9 g/dL 32-36 [facility] Mean platelet volume determi nationOrdered By: Herlinda Ureña on 11-08-2025 Platelet mean volume (Bld) [Entitic vol] 9.8 fL 6.2-12.0 [facility] Monocyte percentageOrdered B y: Herlinda Ureña on 11-08-2025 Monocytes/100 WBC (Bld) 8.3 % 0-10 [facility] Neutrophil percentageOrdered By: Herlinda Ureña on 11-08-2025 Neutrophils/100 WBC (Bld) 67.0 % 47-70 [facility] Nucleated red blood cell per centageOrdered By: Herlinda Ureña on 11-08-2025 Nucleated RBC/100 WBC (Bld) [Ratio] 0 % 0-5 [facility] Platelet countOrdered By: Sung Ureña on 11-08-2025 Platelets (Bld) [#/Vol] 165 10*3/uL 150-450 [facility] Potassium measurement (mass/ volume)Ordered By: Edy Drew on 11-08-2025 Potassium (Unsp spec) [Mass/Vol] 4.1 mmol/L 3.5-5.1 [facility] Comment on above: Hemolysis present, R esults could be affected. RBC Auto (Bld) [#/Vol]Ordere d By: Herlinda Ureña on 11-08-2025 RBC (Bld) [#/Vol] 3.89 10*6/uL Low 4.2-5.4 [facility] Serum creatinine measurement (mass/volume)Ordered By: Edy Drew on 11-08-2025 Creatinine [Mass/Vol] 0.91 mg/dL 0.70-1.20 [facility] Serum glucose measurement (m ass/volume)Ordered By: Edy Drew on 11-08-2025 Glucose [Mass/Vol] 95 mg/dL 70-99 [facility] Serum or plasma calcium tamir urement (mass/volume)Ordered By: Edy Drew on 11-08-2025 Calcium [Mass/Vol] 9.8 mg/dL 7.6-11.0 [facility] Serum or plasma carbon dioxi de measurement (moles/volume)Ordered By: Edy Drew on 11-08-2025 CO2 [Moles/Vol] 28.4 mmol/L 20.0-29.0 [facility] Serum or plasma chloride lui surement (moles/volume)Ordered By: Edy Drew on 11-08-2025 Chloride [Moles/Vol] 97 mmol/L 96-106 [facility] Serum or plasma urea nitroge n measurement (mass/volume)Ordered By: Edy Drew on 11-08-2025 Urea nitrogen [Mass/Vol] 27 mg/dL High 4-19 [facility] Serum or plasma urea nitroge n/creatinine mass ratioOrdered By: Edy Drew on 11-08-2025 Urea nitrogen/Creatinine [Mass ratio] 29.8 mg/mg High 10 [facility] Serum sodium measurement (mo les/volume)Ordered By: Edy Drew on 11-08-2025 Sodium [Moles/Vol] 134 mmol/L Low 135-145 [facility] TSH DL <= 0.005 mIU/L QnOrde red By: Herlinda Ureña on 11-08-2025 TSH Qn 3.850 uIU/mL 0.300-4.20 0 [facility] Thyroid Stim Hormone (TSH)on 11-08-2025 TSH 3.850 uIU/mL Normal 0.300-4.20 0 [facility] Comment on above: Performed By: #### L 499.0042 #### [facility] [address] [place], [address] Performed By: #### L 501.9520, L100.0100 #### [facility] [address] [place], [address] White blood cell (WBC) count Ordered By: Herlinda Ureña on 11-08-2025 WBC (Bld) [#/Vol] 7.4 10*3/uL 4.4-11.0 [facility] CBC panel Auto (Bld)on 07-26 Erythrocyte distribution width (RBC) [Ratio] 13.0 % Normal 11.5-15.0 [facility] Comment on above: Order Comment: Speci men Type: BLOOD SPECIMEN Ordering Facility: [facility] Address: [address] [place] [address] Performed By: #### 5 8410-2 #### [facility] CLIA [id number] [address] [place] [address] [place] Order Comment: Speci men Type: BLOOD SPECIMENOrdering Facility: [facility] Address: [address] [place] [address] Performed By: #### 5 8410-2 ####[facility] [id number] [address] [place] Hematocrit (Bld) [Volume fraction] 39.6 % Normal 36.0-46.0 [facility] Comment on above: Order Comment: Speci men Type: BLOOD SPECIMEN Ordering Facility: [facility] Address: [address] [place] [address] Performed By: #### 5 8410-2 #### [facility] CLIA [id number] [address] [place] [address] [place] Order Comment: Speci men Type: BLOOD SPECIMENOrdering Facility: [facility] Address: [address] [place] [address] Performed By: #### 5 8410-2 ####[facility] [id number] [place] [address] [place] Hemoglobin (Bld) [Mass/Vol] 13.2 g/dL Normal 11.5-15.5 [facility] Comment on above: Order Comment: Speci men Type: BLOOD SPECIMEN Ordering Facility: [facility] Address: [address] [place] [address] Performed By: #### 5 8410-2 #### [facility] CLIA [id number] [address] [place] [address] [place] Order Comment: Speci men Type: BLOOD SPECIMENOrdering Facility: [facility] Address: [address] [place] [address] Performed By: #### 5 8410-2 ####[facility] [id number] [place] [address] [place] MCH (RBC) [Entitic mass] 33.1 pg Normal 26.0-34.0 [facility] Comment on above: Order Comment: Speci men Type: BLOOD SPECIMEN Ordering Facility: [facility] Address: [address] [place] [address] Performed By: #### 5 8410-2 #### [facility] CLIA [id number] [address] [place] [address] [place] Order Comment: Speci men Type: BLOOD SPECIMENOrdering Facility: [facility] Address: [address] [place] [address] Performed By: #### 5 8410-2 ####[facility] [id number] [place] [address] [place] MCHC (RBC) [Mass/Vol] 33.3 g/dL Normal 30.5-36.0 [facility] Comment on above: Order Comment: Speci men Type: BLOOD SPECIMEN Ordering Facility: [facility] Address: [address] [place] [address] Performed By: #### 5 8410-2 #### [facility] CLIA [id number] [address] [place] [address] [place] Order Comment: Speci men Type: BLOOD SPECIMENOrdering Facility: [facility] Address: [address] [place] [address] Performed By: #### 5 8410-2 ####[facility] [id number] [place] [address] [place] MCV (RBC) [Entitic vol] 99.2 fL Normal 80.0-100.0 [facility] Comment on above: Order Comment: Speci men Type: BLOOD SPECIMEN Ordering Facility: [facility] Address: [address] [place] [address] Performed By: #### 5 8410-2 #### [facility] CLIA [id number] [address] [place] [address] [place] Order Comment: Speci men Type: BLOOD SPECIMENOrdering Facility: [facility] Address: [address] [place] [address] Performed By: #### 5 8410-2 ####[facility] [id number] [place] [address] [place] Nucleated RBC (Bld) [#/Vol] 10*3/uL Normal <0.01 [facility] Comment on above: Order Comment: Speci men Type: BLOOD SPECIMEN Ordering Facility: [facility] Address: [address] [place] [address] Performed By: #### 5 8410-2 #### [facility] CLIA [id number] [address] [place] [address] Order Comment: Speci men Type: BLOOD SPECIMENOrdering Facility: [facility] Address: [address] [place] [address] Performed By: #### 5 8410-2 ####[facility] [id number] [place] [address] [place] Platelet mean volume (Bld) [Entitic vol] 9.5 fL Normal 9.0-12.7 [facility] Comment on above: Order Comment: Speci men Type: BLOOD SPECIMEN Ordering Facility: [facility] Address: [address] [place] [address] Performed By: #### 5 8410-2 #### [facility] CLIA [id number] [address] [place] [address] Order Comment: Speci men Type: BLOOD SPECIMENOrdering Facility: [facility] Address: [address] [place] [address] Performed By: #### 5 8410-2 ####[facility] [id number] [place] [address] [place] Platelets (Bld) [#/Vol] 192 10*3/uL Normal 150-400 [facility] Comment on above: Order Comment: Speci men Type: BLOOD SPECIMEN Ordering Facility: [facility] Address: [address] [place] [address] Performed By: #### 5 8410-2 #### [facility] CLIA [id number] [address] [place] [address] Order Comment: Speci men Type: BLOOD SPECIMENOrdering Facility: [facility] Address: [address] [place] [address] Performed By: #### 5 8410-2 ####[facility] [id number] [place] [address] [place] RBC (Bld) [#/Vol] 3.99 10*6/uL Normal 3.90-5.20 [facility] Comment on above: Order Comment: Speci men Type: BLOOD SPECIMEN Ordering Facility: [facility] Address: [address] [place] [address] Performed By: #### 5 8410-2 #### [facility] CLIA [id number] [address] [place] [address] [place] Order Comment: Speci men Type: BLOOD SPECIMENOrdering Facility: [facility] Address: [address] [place] [address] Performed By: #### 5 8410-2 ####[facility] [id number] [place] [address] [place] WBC (Bld) [#/Vol] 6.95 10*3/uL Normal 3.70-11.00 [facility] Comment on above: Order Comment: Speci men Type: BLOOD SPECIMEN Ordering Facility: [facility] Address: [address] [place] [address] Performed By: #### 5 8410-2 #### [facility] CLIA [id number] [address] [place] [address] OF [facility] Order Comment: Speci men Type: BLOOD SPECIMENOrdering Facility: [facility] Address: [address] [place] [address] Performed By: #### 5 8410-2 ####[facility] [id number] [address] [place] CNOVon 07-26-2025 CNOV Office Visit (INTMWS ) NANO AGUILAR ([id number]) 1940 F Date Time Provider Department 07/26/25 1:40 PM ALBERTO HERR INTMWS During your visit today, we recorded the following information about you: Temperature Pulse Blood pressure Weight 97.3 degrees 60/minute 102/66 62.7 kg Alberto Herr MD 07/26/2025 3:45 PM Signed Subjective Nano Aguilra is a 85 year old female. She [...] Lbbb (Left Bundle Branch Block) Atherosclerosis of [place] Coronary Artery of [place] Heart With Stable Angina Pectoris Bilateral Carotid [...] (FLONASE) 50 mcg/actuation nasal spray Use 1 [place] in each nostril once daily. albuterol HFA [...] 1 tablet by mouth once daily. FISH [id number] Q10 1,900 MG-640 MG-50 MG/2.5 G ORAL [...] with reduced ejection fraction (HFrEF, <= 40%) ([facility]) - ICD9: 428.22, ICD10: I50.22 (primary diagnosis) - HFrEF <=40 - Compensated - Continue current medications - FUROSEMIDE (more content not included)... Normal [facility] Comprehensive metabolic 2000 panelon 07-26-2025 Albumin [Mass/Vol] 4.6 g/dL Normal 3.9-4.9 [facility] Comment on above: Order Comment: Speci jacklyn Type: BLOOD SPECIMEN Ordering Facility: [facility] Address: [address] [place] [address] Performed By: #### L IPNF, 48719-9 #### [facility] CLIA [id number] [address] [place] [address] Order Comment: Speci men Type: BLOOD SPECIMENOrdering Facility: [facility] Address: [address] [place] [address] Performed By: #### L IPNF, 98206-0 ####[facility] [id number] [address] [place] ALP [Catalytic activity/Vol] 45 U/L Normal 34-123 [facility] Comment on above: Order Comment: Speci men Type: BLOOD SPECIMEN Ordering Facility: [facility] Address: [address] [place] [address] Performed By: #### L IPNF, 48299-4 #### [facility] CLIA [id number] [address] [place] [address] Order Comment: Speci men Type: BLOOD SPECIMENOrdering Facility: [facility] Address: [address] [place] [address] Performed By: #### L IPNF, ####[facility] [id number] [place] [address] [place] ALT [Catalytic activity/Vol] 18 U/L Normal 7-38 [facility] Comment on above: Order Comment: Speci men Type: BLOOD SPECIMEN Ordering Facility: [facility] Address: [address] [place] [address] Performed By: #### L IPNF, #### [facility] CLIA [id number] [facility] [place] [address] [place] Order Comment: Speci men Type: BLOOD SPECIMENOrdering Facility: [facility] Address: [address] [place] [address] Performed By: #### L IPNF, ####[facility] [id number] [place] [address] [place] Anion gap [Moles/Vol] 13 mmol/L Normal 8-15 [facility] Comment on above: Order Comment: Speci men Type: BLOOD SPECIMEN Ordering Facility: [facility] Address: [address] [place] [address] Performed By: #### L IPNF, #### [facility] CLIA [id number] [address] [place] [address] [place] Order Comment: Speci men Type: BLOOD SPECIMENOrdering Facility: [facility] Address: [address] [place] [address] Performed By: #### L IPNF, 23504-4 ####[facility] [id number] [place] [address] [place] AST [Catalytic activity/Vol] 27 U/L Normal 13-35 [facility] Comment on above: Order Comment: Speci men Type: BLOOD SPECIMEN Ordering Facility: [facility] Address: [address] [place] [address] Performed By: #### L IPNF, #### [facility] CLIA [id number] [address] [place] [address] [place] Order Comment: Speci men Type: BLOOD SPECIMENOrdering Facility: [facility] Address: [address] [place] [address] Performed By: #### L IPNF, 66524-8 ####[facility] [id number] [place] [address] [place] Bilirubin [Mass/Vol] 0.7 mg/dL Normal 0.2-1.3 [facility] Comment on above: Order Comment: Speci men Type: BLOOD SPECIMEN Ordering Facility: [facility] Address: [address] [place] [address] Performed By: #### L IPNF, #### [facility] CLIA [id number] [address] [place] [address] [place] Order Comment: Speci men Type: BLOOD SPECIMENOrdering Facility: [facility] Address: [address] [place] [address] Performed By: #### L IPNF, ####[facility] [id number] [place] [address] [place] Calcium [Mass/Vol] 9.3 mg/dL Normal 8.5-10.2 [facility] Comment on above: Order Comment: Speci men Type: BLOOD SPECIMEN [facility] Address: [address] [place] [address] Performed By: #### L IPNF, #### [facility] CLIA [id number] [address] [place] [address] [place] Order Comment: Speci men Type: BLOOD SPECIMENOrdering Facility: [facility] Address: [address] [place] [address] Performed By: #### L IPNF, ####[facility] [id number] [place] [address] [place] Chloride [Moles/Vol] 96 mmol/L Low 98-107 [facility] Comment on above: Order Comment: Speci men Type: BLOOD SPECIMEN [facility] Address: [address] [place] [address] Performed By: #### L IPNF, 04073-7 #### [facility] CLIA [id number] [address] [place] [address] [place] Order Comment: Speci men Type: BLOOD SPECIMENOrdering Facility: [facility] Address: [address] [place] [address] Performed By: #### L IPNF, ####[facility] [id number] [place] [address] [place] CO2 [Moles/Vol] 25 mmol/L Normal 22-30 [facility] Comment on above: Order Comment: Speci men Type: BLOOD SPECIMEN [facility] Address: [address] [place] [address] Performed By: #### L IPNF, #### [facility] CLIA [id number] [address] [place] [address] [place] Order Comment: Speci men Type: BLOOD SPECIMENOrdering Facility: [facility] Address: [address] [place] [address] Performed By: #### L IPNF, ####[facility] [id number] [place] [address] [place] Creatinine [Mass/Vol] 0.87 mg/dL Normal 0.58-0.96 [facility] Comment on above: Order Comment: Speci men Type: BLOOD SPECIMEN Order[facility] Address: [address] [place] [address] Performed By: #### L IPNF, #### [facility] CLIA [id number] [address] [place] [address] [place] Order Comment: Speci men Type: BLOOD SPECIMENOrdering Facility: [facility] Address: [address] [place] [address] Performed By: #### L IPNF, 32111-4 ####[facility] [id number] [address] [place] eGFRcr SerPlBld CKD-EPI 2020 65 mL/min/1.73m??? Normal >=60 [facility] Comment on above: Order Comment: Seymour villasenor Type: BLOOD SPECIMEN Ordering Facility: [facility] Address: [address] [place] [address] Result Comment: Ragini mated Glomerular Filtration Rate (eGFR) is calculated using the 2020 CKD-EPI creatinine equation. This equation utilizes serum creatinine, sex, and age as parameters. The creatinine assay has traceable calibration to isotope dilution-mass spectrometry. Refer to KDIGO guidelines for clinical interpretation. In patients with unstable renal function, e.g. those with acute kidney injury, the eGFR may not accurately reflect actual GFR. Performed By: #### L IPNF, 88091-5 #### [facility] CLIA [id number] [address] [place] [address] Order Comment: Seymour villasenor Type: BLOOD SPECIMENOrdering Facility: [facility] Address: [address] [place] [address] Performed By: #### L IPNF, 96910-6 ####[facility] [id number] [address] [facility] Glucose [Mass/Vol] 98 mg/dL Normal 74-99 [facility] Comment on above: Order Comment: Seymour villasenor Type: BLOOD SPECIMEN [facility] Address: [address] [place] [address] Result Comment: The [place] Diabetes Association (ADA) provides guidance for cutoff [...] Standards of Medical Care in Diabetes 2016, [place] Diabetes Association. Diabetes Care. 2016.39(Suppl 1). Performed By: #### L IPNF, 71362-3 #### [facility] CLIA [id number] [address] [place] [address] [place] Order Comment: Speci men Type: BLOOD SPECIMENOrdering Facility: [facility] Address: [address] [place] [address] Performed By: #### L IPNF, ####[facility] [id number] [place] [address] [place] Potassium [Moles/Vol] 4.1 mmol/L Normal 3.7-5.1 [facility] Comment on above: Order Comment: Speci men Type: BLOOD SPECIMEN [facility] Address: [address] [place] [address] Performed By: #### L IPNF, 73001-4 #### [facility] CLIA [id number] [address] [place] [address] [place] Order Comment: Speci men Type: BLOOD SPECIMENOrdering Facility: [facility] Address: [address] [place] [address] Performed By: #### L IPNF, 11237-5 ####[facility] [id number] [place] [address] [place] Protein [Mass/Vol] 7.1 g/dL Normal 6.3-8.0 [facility] Comment on above: Order Comment: Speci men Type: BLOOD SPECIMEN [facility] Address: [address] [place] [address] Performed By: #### L IPNF, 69280-8 #### [facility] CLIA [id number] [address] [place] [address] [place] Order Comment: Speci men Type: BLOOD SPECIMENOrdering Facility: [facility] Address: [address] [place] [address] Performed By: #### L IPNF, 14278-1 ####[facility] [id number] [place] [address] [place] Sodium [Moles/Vol] 134 mmol/L Low 136-144 [facility] Comment on above: Order Comment: Speci men Type: BLOOD SPECIMEN [facility] Address: [address] [place] [address] Performed By: #### L IPNF, 07823-5 #### [facility] CLIA [id number] [address] [place] [address] [place] Order Comment: Speci men Type: BLOOD SPECIMENOrdering Facility: [facility] Address: [address] [place] [address] Performed By: #### L IPNF, ####[facility] [id number] [place] [address] [place] Urea nitrogen [Mass/Vol] 19 mg/dL Normal 7-21 [facility] Comment on above: Order Comment: Speci men Type: BLOOD SPECIMEN [facility] Address: [address] [place] [address] Performed By: #### L IPNF, 33247-8 #### [facility] CLIA [id number] [address] [place] [address] [place] Order Comment: Speci men Type: BLOOD SPECIMENOrdering Facility: [facility] Address: [address] [place] [address] Performed By: #### L IPNF, 23735-3 ####[facility] [id number] [place] [address] [place] LIPID PANEL, NONFASTINGon Cholesterol [Mass/Vol] 122 mg/dL Normal <200 [facility] Comment on above: Order Comment: Speci men Type: BLOOD SPECIMEN [facility] Address: [address] [place] [address] Result Comment: <200 mg/dL, Desirable 200-239 mg/dL, Borderline high >239 mg/dL, High Performed By: #### L IPNF, 11489-4 #### [facility] CLIA [id number] [facility] [address] Order Comment: Speci men Type: BLOOD SPECIMENOrdering Facility: [facility] Address: [address] [place] [address] Performed By: #### L IPNF, ####[facility] [id number] [address] [place] HDL CHOLESTEROL, NF 52 mg/dL Normal >39 [facility] Comment on above: Order Comment: Seymour men Type: BLOOD SPECIMEN [facility] Address: [address] [place] [address] Result Comment: 40-5 9 mg/dL, Acceptable >59 mg/dL, High: Negative risk factor for coronary heart disease <40 mg/dL, Low: Positive risk factor for coronary heart disease Performed By: #### L IPNF, #### [facility] CLIA [id number] [address] [place] [address] Order Comment: Emilyi men Type: BLOOD SPECIMENOrdering Facility: [facility] Address: [address] [place] [address] Performed By: #### L IPNF, 23144-6 ####[facility] [id number] [address] [place] LDL CHOLESTEROL CALCULATED, NF 52 mg/dL Normal <100 [facility] Comment on above: Order Comment: Speci men Type: BLOOD SPECIMEN [facility] Address: [address] [place] [address] Result Comment: <100 mg/dL, Optimal 100-129 mg/dL, Near optimal/above optimal 130-159 mg/dL, Borderline high 160-189 mg/dL, High >189 mg/dL, Very high Secondary prevention optimal LDL Cholesterol levels are recommended to be <70 mg/dL LDL cholesterol is calculated using the Fajardo-NIH equation. Performed By: #### L IPNF, 78282-9 #### [facility] CLIA [id number] [address] [place] [address] Order Comment: Speci men Type: BLOOD SPECIMENOrdering Facility: [facility] Address: [address] [place] [address] Performed By: #### L IPNF, 59814-6 ####[facility] [id number] [address] LDL/HDL RATIO, NF 1.00 mg/dL Normal <2.54 [facility] Comment on above: Order Comment: Speci men Type: BLOOD SPECIMEN [facility] Address: [address] [place] [address] Result Comment: Ysabel jim: 1. National Cholesterol Education Program ATP III Guideline At-A-Glance Quick Desk Reference: National Heart, Lung, and Blood Esopus. National Institutes of Health. 2001: NIH Publication No. 01-3305. 2. An International Atherosclerosis Society position paper: global recommendations for the management of dyslipidemia: executive summary, Atherosclerosis. 2014: 232(2):410-413. Performed By: #### L IPNF, 70622-8 #### [facility] CLIA [id number] [address] [place] [address] Order Comment: Speci men Type: BLOOD SPECIMENOrdering Facility: [facility] Address: [address] [place] [address] Performed By: #### L IPNF, 41167-0 ####[facility] [id number] [address] [place] NON HDL CHOL, NF 70 mg/dL Normal <130 [facility] Comment on above: Order Comment: Emilyi men Type: BLOOD SPECIMEN [facility] Address: [address] [place] [address] Result Comment: <130 mg/dL, Optimal 130-159 mg/dL, Near optimal/above optimal 160-189 mg/dL, Borderline high 190-219 mg/dL, High >219 mg/dL, Very high Secondary prevention optimal non HDL Cholesterol levels are recommended to be <100 mg/dL Performed By: #### L IPNF, 90625-0 #### [facility] CLIA [id number] [address] [place] [address] [place] Order Comment: Speci men Type: BLOOD SPECIMENOrdering Facility: [facility] Address: [address] [place] [address] Performed By: #### L IPNF, ####[facility] [id number] [place] [address] [place] T CHOL/HDL RATIO NF 2.35 mg/dL Normal <5.10 [facility] Comment on above: Order Comment: Speci men Type: BLOOD SPECIMEN [facility] Address: [address] [place] [address] Performed By: #### L IPHARIS, #### [facility] CLIA [id number] [address] [place] [address] [place] Order Comment: Speci men Type: BLOOD SPECIMENOrdering Facility: [facility] Address: [address] [place] [address] Performed By: #### L IPNF, ####[facility] [id number] [address] [place] TRIGLYCERIDES, NF 99 mg/dL Normal <150 [facility] Comment on above: Order Comment: Speci men Type: BLOOD SPECIMEN [facility] Address: [address] [place] [address] Result Comment: <150 mg/dL, Normal 150-199 mg/dL, Borderline high 200-499 mg/dL, High >499 mg/dL, Very high Performed By: #### L IPNF, #### [facility] CLIA [id number] [address] [place] [address] [place] Order Comment: Speci men Type: BLOOD SPECIMENOrdering Facility: [facility] Address: [address] [place] [address] Performed By: #### L IPNF, 63865-5 ####[facility] [id number] [place] [address] [place] VLDL CHOLESTEROL, NF 14 mg/dL Normal <30 [facility] Comment on above: Order Comment: Speci men Type: BLOOD SPECIMEN [facility] Address: [address] [place] [address] Performed By: #### L IPNF, 78244-1 #### [facility] CLIA [id number] [address] [place] [address] [place] Order Comment: Speci men Type: BLOOD SPECIMENOrdering Facility: [facility] Address: [address] [place] [address] Performed By: #### L IPNF, 04261-8 ####[facility] [id number] [address] [place] Cardiology Visit Reporton Cardiology Visit Report [facility] [address] [place] [address] OFFICE VISIT Date of Service: 05/24/25 MR#: [id number] Acct: [id number] Name: NANO AGUILAR Rep #: [id number] : 1940 Provider: STEFANO verdugo Age/Sex: 85/F [place] [facility] Status: Signed HPI HPI History of Present Illness Details: This is an 85-year-old female who presents today for cardiovascular follow-up visit. She has a history of nonischemic cardiomyopathy, hypertension, dyslipidemia, coronary artery disease and mitral valve regurgitation. From a cardiac standpoint, the patient is doing well. She denies any palpitations, chest pain, pressure or heaviness. She denies SOB, Orthopnea, and PND. She does not have bleeding issues; no blood in urine, stool, or nosebleeds. She does acknowledge chronic fatigue. She denies myalgias, or claudication. She does not have edema, or sudden weight gain. She denies lightheadedness, dizziness, syncopal or near syncopal episodes, and headaches. Intake Vital Signs 01/13/25 13:16 05/24/25 09:19 Height 5 ft 5 in 5 ft 5 in Weight: 137 lb BMI 22.8 BP 115/76 Blood Pressure Location Lt brachial Position Sitting Respiration 18 Pulse 64 Pulse Source Monitor Pulse Oximetry (%) 97 Intake Visit Reasons: O/D for FU Cupola Charger Required: No Is patient in pain?: No Allergies adhesive tape Adverse Reaction (Verified 05/24/25 13:20) Itching latex Adverse Reaction (Verified 05/24/25 13:20) Rash nabumetone (From Relafen) Adverse Reaction (Verified 05/24/25 13:20) Nausea ramipril (From Altace) Adverse Reaction (Verified 05/24/25 13:20) Other sulfamethoxazole (From Bactrim) Adverse Reaction (Verified 05/24/25 13:20) Nausea trimethoprim (From Bactrim) Adverse Reaction (Verified 05/24/25 13:20) Nausea Medications ???Medication ???Instructions ???Recorded ???Confirmed ???Type aspirin 81 mg tablet,delayed 81 mg PO DAILY@0800 heart health 1 11/10/17 05/24/25 History release loratadine 10 mg tablet 10 mg PO DAILY allergies 09/09/18 05/24/25 History montelukast 10 mg tablet 10 mg PO DAILY allergies 09/09/18 05/24/25 History multivitamin with folic acid 400 1 tab PO DAILY vitamin 09/09/18 History mcg tablet pantoprazole 20 mg tablet,delayed 20 mg PO DAILY reflux 08/08/19 History release cholecalciferol (vitamin D3) 10 10 mcg PO DAILY vitamin 07/11/24 0 05/24/25 History mcg (400 unit) chewable tablet potassium chloride 20 mEq 20 meq PO DAILY supplement #90 tab s 08/08/24 05/24/25 Rx tablet,extended release albuterol sulfate 90 mcg/actuation 2 puff inhalation Q4 PRN wheezin g 11/16/24 05/24/25 History aerosol inhaler fluticasone fur. 100 mcg-umeclid 1 ea inhalation DAILY breathing 05/24/25 History 62.5 mcg-vilant 25 mcg inhalat.powder (Trelegy Ellipta) furosemide 40 mg tablet (Lasix) 40 mg PO BID diuretic #60 tabs 05/24/25 Rx calcium 600 mg (as 2 tab PO DAILY VITAMIN 01/13/25 History carbonate)-vitamin D3 10 mcg (400 unit) tablet atorvastatin 40 mg tablet 40 mg PO QHS #90 TABLETS 01/19/25 05/24/25 Rx carvedilol 12.5 mg tablet 12.5 mg PO BID blood pressure #180 01/30/25 05/24/25 Rx tabs dapagliflozin propanediol 10 mg 10 mg PO DAILY diabetes #90 tabs 0 03/05/25 05/24/25 Rx tablet (Farxiga) sacubitril 49 mg-valsartan 51 mg 1 tab PO BID heart #180 tabs 03/0505/24/25 Rx tablet (Entresto) isosorbide mononitrate 60 mg 60 mg PO DAILY heart #90 tabs 05/0505/24/25 Rx tablet,extended release 24 hr nitroglycerin 0.4 mg sublingual See Rx Instructions .Route 5 05/24/25 Rx tablet .COMPLEX chest pain #25 tabs Have you fallen in the past year?: No PFSH Medical History COPD exacerbation CHF exacerbation Acute hypoxic respiratory failure Osteoarthritis Osteoporosis Non-smoker Irregular heart beat Hypertension Congestive heart failure (CHF) Alcohol abuse Use of cane as ambulatory aid Mitral regurgitation CAD (coronary artery disease) Wears hearing aid Wears glasses Alcohol use Arthritis High cholesterol Excessive bleeding History of recent fall Back pain Dietary restriction Gastric reflux Former smoker Emphysema, unspecified COPD (chronic obstructive pulmonary disease) Asthma Shortness of breath on exertion Leg cramps History of pain when walking History of echocardiogram History of stress test Cardiology follow-up encounter HLD (hyperlipidemia) Valvular heart disease Chest pressure Hepatic cyst Bilateral carotid artery disease Atherosclerotic heart disease of [place] coronary artery without angina pectoris LBBB (left bundle branch block) Renovas (more content not included)... [facility] CNOVon 01-22-2025 CNOV Office Visit (INTMWS ) NANO AGUILAR ([id number]) 1940 F Date Time Provider Department 01/22/25 1:40 PM ALBERTO HERR INTMWS During your visit today, we recorded the following information about you: Temperature Pulse Respiration Blood pressure 98 degrees 70/minute 14/minute 132/70 Weight Height 60.4 kg 1.575 m Alberto Herr MD 01/22/2025 5:37 PM Signed Nano Aguilar [...] Current care team: Patient Care Team: Alberto Herr MD as PCP - General Brooke Cordoba, ELIGIBILITY CONSULTANT.HIGH REACH OPERATOR as Grad Intern (Internal Medicine) Valentina Camargo MD (Pulmonary) Outside specialists seen: Edy Drew MD (Cardiology [facility]) Ruth Diamond MD (Pain management) Roderick Barbosa MD (Ophthalmology) Wisam Scott MD (ENT) Medical/Family history review Reviewed and updated problem list, medical/surgical/family/socia l history, medications, and allergies. Opioid use review [...] provided - Personalized prevention plan provided Alberto Herr MD 01/22/2025 5:37 PM Signed This note was created using [employer]. Subjective Nano Aguilar is a 85 year [...] Lbbb (Left Bundle Branch Block) Atherosclerosis of [place] Coronary Artery of [place] Heart With Stable Angina Pectoris Bilateral Carotid Artery Disease Asthma-Copd Overlap Syndrome (Hcc) Chronic Hyponatremia Chronic Heart Failure With Reduced Ejection Fraction (Hfref, <= 40%) ([facility]) Vertigo Social History Tobacco Use Smoking status: Former Current packs/day: 0.00 Average packs/day: 1 pack/day for 20.0 years (20.0 ttl pk-yrs) Types: Cigarettes Start date: 10/04/1964 Quit date: 10/04/1984 Years since quittin.3 Smokeless tobacco: (more content not included)... [facility]INTMWS[facility] NANO AGUILAR ([id number]) 1940 F Date Time Provider Department 01/18/25 ALBERTO HERR INTWS During your visit today, we recorded the following information about you: Violeta Infante, RN 01/18/2025 1:46 PM Signed Pt called I and reports she was admitted to the hospital over the weekend for vertigo. She states they were giving her Dramamine for her headache and was asking if provider would call this in to [facility] for her. Pt states she is still having dizziness and headache. She states she dreads laying down and closing her eyes. Pt has an appointment with Dr Herr on 01/22/25. Please call and advise. Alberto Herr MD 01/18/2025 6:38 PM Signed The following approved medication requests have been transmitted electronically. Requested Prescriptions Signed Prescriptions Disp Refills meclizine (ANTIVERT) 25 mg tab 20 tablet 0 Sig: Take 1 tablet by mouth every 6 hours as needed (for dizziness.). Authorizing Provider: ALBERTO HERR Dramamine is over the counter. Prescription for meclizine sent. MD Naresh Townsend Amanda, RN 01/18/2025 6:44 PM Signed Pt called and is notified of providers message and instructions. Pt voices understanding. Violeta Infante RN Allergies As of Date: 01/18/2025 Noted Allergy Reaction ALTSAVANNAH (RAMIPRIL) 12/06/2012 14 - Other: See Comments Comments: Cough BACTRIM (SULFAMETHOXAZOLE-TRIMETH* 8 - GI Upset Comments: Pt having GI upset and stomach pain LATEX 04/17/2009 9 - Itching Comments: Blisters RELAFEN (NABUMETONE) 06/09/2005 8 - GI Upset Date Reviewed: 07/19/2024 Reviewed by: Jannie Monahan LPN - Fully Assessed Reason for Visit: Medication Request [138] Primary Visit Diagnosis:Dizziness [R42] Order(s):meclizine (ANTIVERT) 25 mg tabTake 1 tablet by mouth every 6 hours as needed (for dizziness.).Disp: 20 tabletRfl: 0 Prescriptions as of 01/18/2025 - meclizine (ANTIVERT) 25 mg tab Take [...] (FLONASE) 50 mcg/actuation nasal spray Use 1 [place] in each nostril once daily. - albuterol HFA (PROVENTIL HFA, VENTOLIN HFA) 90 mcg/actuation inhaler Inhale 2 Puffs as instructed. - loratadine (CLARITIN) 10 mg tablet TAKE 1 TABLET BY MOUTH EVERY DAY NEEDED FOR ALLERGIES - pantoprazole DR (PROTONIX) 20 mg tablet Take 1 tablet by mouth daily before breakfast. Take on empty stomach, 1/2 hr before meal. - isosorbide mononitrate ER (IMDUR) 30 mg 24 hr tablet Take 1 tablet by mouth once daily. - losartan (COZAAR) 50 mg tablet Take 1 tablet by mouth once daily. - nitroglycerin sublingual (NITROSTAT) 0.4 mg SL [...] tablet by mouth once daily. - FISH AWT-FVXCR-0-COENZYME Q10 1,900 MG-640 MG-50 MG/2.5 G ORAL PACKET Take one(1) tablet daily. Problem List As Of Date 01/18/2025 Noted Resolved Extrinsic asthma [J45.909] 06/09/2005 08/01/2021 [...] 01/05/2012 Osteoarthritis, knee [M17.9] 06/12/2009 01/05/2012 Postmenopausal Atrophic Vaginitis [N95.2] 10/02/2009 Female stress incontinence [N39.3] 10/02/2009 03/06/2015 Arthritis of knee, degenerative [M17.9] 11/19/2011 Uterine prolapse without mention of vaginal wal*12/21/2011 03/06/2015 Degeneration of intervertebr (more content not included)... Normal [facility] Absolute neutrophil countOrd ered By: Miranda Tripathi on 01-14-2025 Neutrophils (Bld) [#/Vol] 5.1 10*3/uL 2.0-7.7 [facility] Anion gap in Serum or Plasma Ordered By: Miranda Tripathi on 01-14-2025 Anion gap [Moles/Vol] 13 mmol/L 5-15 [facility] BUN/creatinine ratioOrdered By: Miranda Tripathi on 01-14-2025 Urea nitrogen/Creatinine [Mass ratio] 22.7 mg/mg High 10-20 [facility] Basic Metabolic Profile (BMP )on 01-14-2025 BUN/CRE 22.7 RATIO High 10-20 [facility] Comment on above: Performed By: #### L 500.2500, L100.0100 #### [facility] [address] [place], [address] Calcium [Mass/Vol] 9.3 mg/dL Normal 7.6-11.0 [facility] Comment on above: Performed By: #### L 500.2500, L100.0100 #### [facility] [address] [place], [address] Chloride [Moles/Vol] 101 mmol/L Normal 98-108 [facility] Comment on above: Performed By: #### L 500.2500, L100.0100 #### [facility] [address] [place], [address] CO2 [Moles/Vol] 22.9 mmol/L Normal 21.0-32.0 [facility] Comment on above: Performed By: #### L 500.2500, L100.0100 #### [facility] [address] [place], [address] Creatinine [Mass/Vol] 0.68 mg/dL Low 0.70-1.20 [facility] Comment on above: Performed By: #### L 500.2500, L100.0100 #### [facility] [address] [place], [address] ECRCL 44.58 ml/min Low 50-250 [facility] Comment on above: Performed By: #### L 500.2500, L100.0100 #### [facility] [address] [place], [address] GAP 13 Normal 5-15 [facility] Comment on above: Performed By: #### L 500.2500, L100.0100 #### [facility] [address] [place], [address] GFR/1.73 sq M.predicted among non-blacks MDRD (S/P/Bld) [Vol rate/Area] 84 mL/min/{1.73_m2} Normal >60 [facility] Comment on above: Result Comment: mL/m in/1.73m2 CKD-EPI Creatinine Equation (2020) Performed By: #### L 500.2500, L100.0100 #### [facility] [address] [place], [address] Glucose [Mass/Vol] 97 mg/dL Normal 70-99 [facility] Comment on above: Performed By: #### L 500.2500, L100.0100 #### [facility] [address] [place], [address] Potassium [Moles/Vol] 3.6 mmol/L Normal 3.3-5.1 [facility] Comment on above: Performed By: #### L 500.2500, L100.0100 #### [facility] [address] [place], [address] Sodium [Moles/Vol] 136 mmol/L Normal 133-145 [facility] Comment on above: Performed By: #### L 500.2500, L100.0100 #### [facility] [address] [place], [address] Urea nitrogen [Mass/Vol] 15 mg/dL Normal 4-19 [facility] Comment on above: Performed By: #### L 500.2500, L100.0100 #### [facility] [address] [place], [address] Basophil percentageOrdered B y: Miranda Tripathi on 01-14-2025 Basophils/100 WBC (Bld) 0.3 % 0-1 [facility] CBC W/Diff, Automatedon 01-02 Absolute Lymph 1.53 X10 3/uL Normal 0.83-4.51 [facility] Comment on above: Performed By: #### L 500.2500, L100.0100 #### [facility] [address] [place], [address] Absolute Neut 5.1 X10 3/uL Normal 2.0-7.7 [facility] Comment on above: Performed By: #### L 500.2500, L100.0100 #### [facility] [address] [place], [address] Basophils/100 WBC (Bld) 0.3 % Normal 0-1 [facility] Comment on above: Performed By: #### L 500.2500, L100.0100 #### [facility] [address] [place], [address] Eosinophils/100 WBC (Bld) 0.5 % Normal 0-5 [facility] Comment on above: Performed By: #### L 500.2500, L100.0100 #### [facility] [address] [place], [address] Erythrocyte distribution width (RBC) [Ratio] 12.4 % Normal 11.6-14.6 [facility] Comment on above: Performed By: #### L 500.2500, L100.0100 #### [facility] [address] [place], [address] Hematocrit (Bld) [Volume fraction] 37.6 % Normal 37-47 [facility] Comment on above: Performed By: #### L 500.2500, L100.0100 #### [facility] [address] [place], [address] Hemoglobin (Bld) [Mass/Vol] 13.0 g/dL Normal 12.0-15.0 [facility] Comment on above: Performed By: #### L 500.2500, L100.0100 #### [facility] [address] [place], [address] IG% 0.400 Normal 0.0-0.9 [facility] Comment on above: Result Comment: IG% - Immature Granulocytes (promyelocytes, myelocytes and metamyelocytes) > 1% indicates that a LEFT SHIFT is Present. Performed By: #### L 500.2500, L100.0100 #### [facility] [address] [place], [address] Lymphocytes/100 WBC (Bld) 20.8 % Normal 19-41 [facility] Comment on above: Performed By: #### L 500.2500, L100.0100 #### [facility] [address] [place], [address] MCH (RBC) [Entitic mass] 33.9 pg High 27.0-32.0 [facility] Comment on above: Performed By: #### L 500.2500, L100.0100 #### [facility] [address] [place], [address] MCHC (RBC) [Mass/Vol] 34.6 g/dL Normal 32-36 [facility] Comment on above: Performed By: #### L 500.2500, L100.0100 #### [facility] [address] [place], [address] MCV (RBC) [Entitic vol] 98.2 fL Normal 81-99 [facility] Comment on above: Performed By: #### L 500.2500, L100.0100 #### [facility] [address] [place], [address] Monocytes/100 WBC (Bld) 9.4 % Normal 0-10 [facility] Comment on above: Performed By: #### L 500.2500, L100.0100 #### [facility] [address] [place], [address] Neutrophils/100 WBC (Bld) 68.6 % Normal 47-70 [facility] Comment on above: Performed By: #### L 500.2500, L100.0100 #### [facility] [address] [place], [address] Nucleated RBC (Bld) [#/Vol] 0 10*3/uL Normal 0-5 [facility] Comment on above: Performed By: #### L 500.2500, L100.0100 #### [facility] [address] [place], [address] Platelet mean volume (Bld) [Entitic vol] 9.3 fL Normal 6.2-12.0 [facility] Comment on above: Performed By: #### L 500.2500, L100.0100 #### [facility] [address] [place], [address] Platelets (Bld) [#/Vol] 162 10*3/uL Normal 150-450 [facility] Comment on above: Performed By: #### L 500.2500, L100.0100 #### [facility] [address] [place], [address] RBC (Bld) [#/Vol] 3.83 10*6/uL Low 4.2-5.4 [facility] Comment on above: Performed By: #### L 500.2500, L100.0100 #### [facility] [address] [place], [address] RDW SD 44.8 fl High 35.1-43.9 [facility] Comment on above: Performed By: #### L 500.2500, L100.0100 #### [facility] [address] [place], [address] WBC (Bld) [#/Vol] 7.4 10*3/uL Normal 4.4-11.0 [facility] Comment on above: Performed By: #### L 500.2500, L100.0100 #### [facility] [address] [place], [address] Carbon dioxide, total [Moles /volume] in Central venous bloodOrdered By: Miranda Tripathi on 01-14-2025 CO2 [Moles/Vol] 22.9 mmol/L 21.0-32.0 [facility] Chloride assayOrdered By: Hue Tripathi on 01-14-2025 Chloride [Moles/Vol] 101 mmol/L 98-108 [facility] Discharge Instructionon 01-02 Discharge Instruction [facility] Medical Records Department [address] [place] [address] Instructions for Home/Discharge Instructions 01/14/25 1200 MR#: [id number] Acct: [id number] Name: NANO AGUILAR Ellen Rep #: [id number] : 1940 85 From: Miranda Tripathi MD PCP: Dr. Alberto Herr MD Status:ADM CHEMA Discharge Instructions Diet Discharge Diet: - (DASH diet) DC O2, CPAP, BIPAP needs Home O2 Discharge instructions: No Dressing / Incision Discharge Activity: - (Increase activity as tolerated) Follow Up Care Test Results: Test results from this visit will be discussed in further detail at your follow-up appointment, if applicable. Discharge Plan Admission Admit Date/Time: 01/13/25 12:24 Primary Reason for Your Visit: Dizzy feeling Attending Provider: Miranda Tripathi Primary Care Provider: Alberto Herr Instructions Patient Instructions: BPPV, ED Fall Prevention Additional Instructions / Restrictions: -Please call your primary care provider's office upon discharge to schedule a hospital follow up within 1 week. -For any concerning signs or symptoms please call 911 or proceed to the nearest emergency department Discharge Orders/Prescriptions Prescriptions: Continued pantoprazole 20 mg tablet,delayed release (DR/EC) 20 mg PO DAILY albuterol sulfate 90 mcg/actuation HFA aerosol inhaler 2 puff inhalation Q4 PRN (Reason: wheezing) Trelegy Ellipta 100-62.5-25 mcg blister with device 1 ea inhalation DAILY sacubitril-valsartan [Entresto] 49-51 mg tablet 1 tab PO BID Qty: 180 3RF Patient Comments: PT STATES THIS HAS CAUSED HER SOME DIZZINESS. aspirin 81 MG tablet 81 mg PO DAILY@0800 montelukast 10 MG tablet 10 mg PO DAILY loratadine 10 MG tablet 10 mg PO DAILY multivitamin with folic acid 1 TABLET tablet 1 tab PO DAILY isosorbide mononitrate 60 mg tablet extended release 24 hr 60 mg PO DAILY dapagliflozin propanediol [Farxiga] 10 mg tablet 10 mg PO DAILY Patient Comments: PT STATES THIS HAS CAUSED HER SOME DIZZINESS. calcium carbonate-vitamin D3 600 mg-10 mcg (400 unit) tablet 2 tab PO DAILY cholecalciferol (vitamin D3) 10 mcg (400 unit) tablet,chewable 10 mcg PO DAILY atorvastatin 40 mg tablet 40 mg PO DAILY furosemide [Lasix] 40 mg tablet 40 mg PO BID Qty: 60 0RF carvedilol 12.5 mg tablet 12.5 mg PO BID Qty: 180 4RF potassium chloride 20 mEq tablet extended release 20 meq PO DAILY Qty: 90 3RF nitroglycerin 0.4 mg tablet, sublingual See Rx Instructions .ROUTE .COMPLEX Qty: 25 3RF Dose Instruction: 0.4 MG SUBLINGUAL EVERY 5-15M NEEDED FOR CHEST PAIN Rx Instructions: 0.4 MG SUBLINGUAL EVERY 5-15M NEEDED FOR CHEST PAIN Discontinued hydrocodone-acetaminophen 5-325 mg tablet 1 tab PO TID PRN (Reason: pain) Referrals / Follow Up: Alberto Herr MD [Primary Care Provider] - Within 1 Week Disposition Disposition (needs filled in before D/C Order can be placed): Home, Self Care 01/14/25 1205 Miranda Tripathi MD CC: Dr. Alberto Herr MD Signed Normal [facility] Eosinophil percentageOrdered By: Miranda Tripathi on 01-14-2025 Eosinophils/100 WBC (Bld) 0.5 % 0-5 [facility] Erythrocyte distribution wid th (RBC) [Ratio]Ordered By: Miranda Tripathi on 01-14-2025 Erythrocyte distribution width (RBC) [Entitic vol] 44.8 fL High 35.1-43.9 [facility] Erythrocyte distribution wid th ratioOrdered By: Miranda Tripathi on 01-14-2025 Erythrocyte distribution width (RBC) [Ratio] 12.4 % 11.6-14.6 [facility] Estimation of creatinine trixie aranceOrdered By: Miranda Tripathi on 01-14-2025 Estimated Creatinine Clearance Calc 44.58 ml/min Low 50-250 [facility] GFR/1.73 sq M.predicted margaret g non-blacks MDRD (S/P/Bld) [Vol rate/Area]Ordered By: Miranda Tripathi on 01-14-2025 Estimated GFR (MDRD) Non-Af Amer 84 >60 [facility] Comment on above: mL/min/1.73m2 CKD-EP I Creatinine Equation (2020) Hematocrit Auto (Bld) [Volum e fraction]Ordered By: Miranda Tripathi on 01-14-2025 Hematocrit (Bld) [Volume fraction] 37.6 % 37-47 [facility] Hemoglobin measurementOrdere d By: Miranda Tripathi on 01-14-2025 Hemoglobin (Bld) [Mass/Vol] 13.0 g/dL 12.0-15.0 [facility] Immature granulocytes/100 WB C Auto (Bld)Ordered By: Miranda Tripathi on 01-14-2025 Immature granulocytes/100 WBC (Bld) 0.400 % 0.0-0.9 [facility] Comment on above: IG% - Immature Granu locytes (promyelocytes, myelocytes and metamyelocytes) > 1% indicates that a LEFT SHIFT is Present. Lymphocytes Auto (Unsp spec) [#/Vol]Ordered By: Miranda Tripathi on 01-14-2025 Lymphocytes (Bld) [#/Vol] 1.53 10*3/uL 0.83-4.51 [facility] Lymphocytes/100 WBC Auto (Un sp spec)Ordered By: Miranda Tripathi on 01-14-2025 Lymphocytes/100 WBC (Bld) 20.8 % 19-41 [facility] MCV (mean corpuscular volume ) determinationOrdered By: Miranda Tripathi on 01-14-2025 MCV (RBC) [Entitic vol] 98.2 fL 81-99 [facility] Mean corpuscular hemoglobin (MCH) determinationOrdered By: Miranda Tripathi on 01-14-2025 MCH (RBC) [Entitic mass] 33.9 pg High 27.0-32.0 [facility] Mean corpuscular hemoglobin concentration (MCHC) determinationOrdered By: Miranda Tripathi on 01-14-2025 MCHC (RBC) [Mass/Vol] 34.6 g/dL 32-36 [facility] Mean platelet volume determi nationOrdered By: Miranda Tripathi on 01-14-2025 Platelet mean volume (Bld) [Entitic vol] 9.3 fL 6.2-12.0 [facility] Monocyte percentageOrdered B y: Miranda Tripathi on 01-14-2025 Monocytes/100 WBC (Bld) 9.4 % 0-10 [facility] Neutrophil percentageOrdered By: Miranda Tripathi on 01-14-2025 Neutrophils/100 WBC (Bld) 68.6 % 47-70 [facility] Nucleated red blood cell per centageOrdered By: Miranda Tripathi on 01-14-2025 Nucleated RBC/100 WBC (Bld) [Ratio] 0 % 0-5 [facility] Platelet countOrdered By: Hue Tripathi on 01-14-2025 Platelets (Bld) [#/Vol] 162 10*3/uL 150-450 [facility] Potassium (Unsp spec) [Mass/ Vol]Ordered By: Miranda Tripathi on 01-14-2025 Potassium [Moles/Vol] 3.6 mmol/L 3.3-5.1 [facility] RBC Auto (Bld) [#/Vol]Ordere d By: Miranda Tripathi on 01-14-2025 RBC (Bld) [#/Vol] 3.83 10*6/uL Low 4.2-5.4 [facility] Serum creatinine measurement (mass/volume)Ordered By: Miranda Tripathi on 01-14-2025 Creatinine [Mass/Vol] 0.68 mg/dL Low 0.70-1.20 [facility] Serum glucose measurement (m ass/volume)Ordered By: Miranda Tripathi on 01-14-2025 Glucose [Mass/Vol] 97 mg/dL 70-99 [facility] Serum or plasma calcium tamir urement (mass/volume)Ordered By: Miranda Tripathi on 01-14-2025 Calcium [Mass/Vol] 9.3 mg/dL 7.6-11.0 [facility] Serum or plasma urea nitroge n measurement (mass/volume)Ordered By: Miranda Tripathi on 01-14-2025 Urea nitrogen [Mass/Vol] 15 mg/dL 4-19 [facility] Sodium levelOrdered By: Wilbert Triapthi on 01-14-2025 Sodium [Moles/Vol] 136 mmol/L 133-145 [facility] White blood cell (WBC) count Ordered By: Miranda Tripathi on 01-14-2025 WBC (Bld) [#/Vol] 7.4 10*3/uL 4.4-11.0 [facility] 12 Lead EKGon 01-13-2025 12 Lead EKG [facility] Cardiovascular Services [address] [place] [address] 12 Lead EKG 01/13/25 0746 MR#: [id number] Acct: [id number] Name: NANO AGUILAR Rep #: [id number] : 1940 85 From: Garcia Bautista MD Attending Dr: Dr. Miranda Tripathi MD Status: DIS CHEMA Ordering Dr: Garret Ayala DO Date: 01/13/25 Location: [facility] Sex: F C Admitted: 01/13/25 Test Reason : CP Blood Pressure : */* mmHG Vent. Rate : 70 BPM Atrial Rate : 70 BPM P-R Int : 214 ms QRS Dur : 188 ms QT Int : 452 ms P-R-T Axes : 75 -37 90 degrees QTcB Int : 488 ms Sinus rhythm with 1st degree A-V block Possible Left atrial enlargement Left axis deviation Left bundle branch block Abnormal ECG When compared with ECG of 26-Feb-2025 10:58, Nonspecific T wave abnormality now evident in Inferior leads Confirmed by Garcia Bautista ([id number]), order editor VIOLETA TAPIA ([id number]) on 01/17/2025 10:09:44 AM Referred By: [facility] Confirmed By: Garcia Bautista 01/17/25 1009 Date Garcia Bautista MD CC: Dr. Garret Ayala DO; Dr. Miranda Tripathi MD; Dr. Alberto Herr MD Signed Normal [facility] Absolute neutrophil countOrd ered By: Garret Ayala on 01-13-2025 Neutrophils (Bld) [#/Vol] 4.7 10*3/uL 2.0-7.7 [facility] Anion gap in Serum or Plasma Ordered By: Garret Ayala on 01-13-2025 Anion gap [Moles/Vol] 11 mmol/L 5-15 [facility] BUN/creatinine ratioOrdered By: Garret Ayala on 01-13-2025 Urea nitrogen/Creatinine [Mass ratio] 24.3 mg/mg High 10-20 [facility] Basic Metabolic Profile (BMP )on 01-13-2025 BUN/CRE 24.3 RATIO High 10- [facility] Comment on above: Performed By: #### L 100.0100, L500.2500, L503.7505 #### [facility] [address] [place], [address] Calcium [Mass/Vol] 10.1 mg/dL Normal 7.6-11.0 [facility] Comment on above: Performed By: #### L 100.0100, L500.2500, L503.7505 #### [facility] [address] [place], [address] Chloride [Moles/Vol] 96 mmol/L Low 98-108 [facility] Comment on above: Performed By: #### L 100.0100, L500.2500, L503.7505 #### [facility] [address] [place], [address] CO2 [Moles/Vol] 26.7 mmol/L Normal 21.0-32.0 [facility] Comment on above: Performed By: #### L 100.0100, L500.2500, L503.7505 #### [facility] [address] [place], [address] Creatinine [Mass/Vol] 0.80 mg/dL Normal 0.70-1.20 [facility] Comment on above: Performed By: #### L 100.0100, L500.2500, L503.7505 #### [facility] [address] [place], [address] ECRCL 44.58 ml/min Low 50-250 [facility] Comment on above: Performed By: #### L 100.0100, L500.2500, L503.7505 #### [facility] [address] [place], [address] GAP 11 Normal 5-15 [facility] Comment on above: Performed By: #### L 100.0100, L500.2500, L503.7505 #### [facility] [address] [place], [address] GFR/1.73 sq M.predicted among non-blacks MDRD (S/P/Bld) [Vol rate/Area] 71 mL/min/{1.73_m2} Normal >60 [facility] Comment on above: Result Comment: mL/m in/1.73m2 CKD-EPI Creatinine Equation (2020) Performed By: #### L 100.0100, L500.2500, L503.7505 #### [facility] [address] [place], [address] Glucose [Mass/Vol] 105 mg/dL High 70-99 [facility] Comment on above: Performed By: #### L 100.0100, L500.2500, L503.7505 #### [facility] [address] [place], [address] Potassium [Moles/Vol] 4.0 mmol/L Normal 3.3-5.1 [facility] Comment on above: Performed By: #### L 100.0100, L500.2500, L503.7505 #### [facility] [address] [place], [address] Sodium [Moles/Vol] 134 mmol/L Normal 133-145 [facility] Comment on above: Performed By: #### L 100.0100, L500.2500, L503.7505 #### [facility] [address] [place], [address] Urea nitrogen [Mass/Vol] 20 mg/dL High 4-19 [facility] Comment on above: Performed By: #### L 100.0100, L500.2500, L503.7505 #### [facility] [address] [place], [address] Basophil percentageOrdered B y: Garret Ayala on 01-13-2025 Basophils/100 WBC (Bld) 0.4 % 0-1 [facility] Bilirubin Test strip Ql (U)O rdered By: Garret Ayala on 01-13-2025 Bilirubin Ql (U) Negative Negative [facility] CBC W/Diff, Automatedon 01-02 Absolute Lymph 1.40 X10 3/uL Normal 0.83-4.51 [facility] Comment on above: Performed By: #### L 100.0100, L500.2500, [id number] #### [facility] [address] [place], [address] Absolute Neut 4.7 X10 3/uL Normal 2.0-7.7 [facility] Comment on above: Performed By: #### L 100.0100, L500.2500, [id number] #### [facility] [address] [place], [address] Basophils/100 WBC (Bld) 0.4 % Normal 0-1 [facility] Comment on above: Performed By: #### L 100.0100, L500.2500, [id number] #### [facility] [address] [place], [address] Eosinophils/100 WBC (Bld) 0.6 % Normal 0-5 [facility] Comment on above: Performed By: #### L 100.0100, L500.2500, [id number] #### [facility] [address] [place], [address] Erythrocyte distribution width (RBC) [Ratio] 12.5 % Normal 11.6-14.6 [facility] Comment on above: Performed By: #### L 100.0100, L500.2500, L503.7505 #### [facility] [address] [place], [address] Hematocrit (Bld) [Volume fraction] 36.9 % Low 37-47 [facility] Comment on above: Performed By: #### L 100.0100, L500.2500, L503.7505 #### [facility] [address] [place], [address] Hemoglobin (Bld) [Mass/Vol] 12.8 g/dL Normal 12.0-15.0 [facility] Comment on above: Performed By: #### L 100.0100, L500.2500, L503.7505 #### [facility] [address] [place], [address] IG% 0.400 Normal 0.0-0.9 [facility] Comment on above: Result Comment: IG% - Immature Granulocytes (promyelocytes, myelocytes and metamyelocytes) > 1% indicates that a LEFT SHIFT is Present. Performed By: #### L 100.0100, L500.2500, L503.7505 #### [facility] [address] [place], [address] Lymphocytes/100 WBC (Bld) 20.4 % Normal 19-41 [facility] Comment on above: Performed By: #### L 100.0100, L500.2500, L503.7505 #### [facility] [address] [place], [address] MCH (RBC) [Entitic mass] 34.8 pg High 27.0-32.0 [facility] Comment on above: Performed By: #### L 100.0100, L500.2500, L503.7505 #### [facility] [address] [place], [address] MCHC (RBC) [Mass/Vol] 34.7 g/dL Normal 32-36 [facility] Comment on above: Performed By: #### L 100.0100, L500.2500, L503.7505 #### [facility] [address] [place], [address] MCV (RBC) [Entitic vol] 100.3 fL High 81-99 [facility] Comment on above: Performed By: #### L 100.0100, L500.2500, L503.7505 #### [facility] [address] [place], [address] Monocytes/100 WBC (Bld) 9.2 % Normal 0-10 [facility] Comment on above: Performed By: #### L 100.0100, L500.2500, L503.7505 #### [facility] [address] [place], [address] Neutrophils/100 WBC (Bld) 69.0 % Normal 47-70 [facility] Comment on above: Performed By: #### L 100.0100, L500.2500, L503.7505 #### [facility] [address] [place], [address] Nucleated RBC (Bld) [#/Vol] 0 10*3/uL Normal 0-5 [facility] Comment on above: Performed By: #### L 100.0100, L500.2500, L503.7505 #### [facility] [address] [place], [address] Platelet mean volume (Bld) [Entitic vol] 9.4 fL Normal 6.2-12.0 [facility] Comment on above: Performed By: #### L 100.0100, L500.2500, L503.7505 #### [facility] [address] [place], [address] Platelets (Bld) [#/Vol] 176 10*3/uL Normal 150-450 [facility] Comment on above: Performed By: #### L 100.0100, L500.2500, L503.7505 #### [facility] [address] [place], [address] RBC (Bld) [#/Vol] 3.68 10*6/uL Low 4.2-5.4 [facility] Comment on above: Performed By: #### L 100.0100, L500.2500, L503.7505 #### [facility] [address] [place], [address] RDW SD 46.2 fl High 35.1-43.9 [facility] Comment on above: Performed By: #### L 100.0100, L500.2500, L503.7505 #### [facility] [address] [place], [address] WBC (Bld) [#/Vol] 6.9 10*3/uL Normal 4.4-11.0 [facility] Comment on above: Performed By: #### L 100.0100, L500.2500, L503.7505 #### [facility] [address] [place], [address] CTA Head AND Neck W/ Contras ton 01-13-2025 CTA Head AND Neck W/ Contrast [facility] Imaging Services [address] [place] [address] CTA Head AND Neck W/ Contrast MR#: [id number] Acct: [id number] Name: NANO AGUILAR Rep #: [id number] : 1940 F 85 From: Felicia Armenta nd, MD PCP: Dr. Alberto Herr MD Status: REG ER Study: CTA Head AND Neck W/ Contrast Date of Exam: Exam# [id number] Ordering Dr: Garret Ayala DO PROCEDURE: CT HEAD, CTA HEAD AND NECK W/ CONTRAST 01/13/2025 REASON FOR EXAM: DIZZINESS/POSTERIOR CIRCULATION TECHNIQUE: CTA imaging of the head and neck from the aortic arch to the skull vertex with out constrast and with intravenous contrast. Coronal and Sagittal reconstruction series were provided. 3D post processing with reformations, Maximum intensity projection (MIPs) Volume rendering and Shaded surface rendering was provided. CONTRAST: Isovue 370 VOLUME: 100 mL One or more dose reduction techniques were used (e.g., Automated exposure control, adjustment of the mA and/or kV according to patient size, use of iterative reconstruction technique). RADIATION DOSE SUMMARY: CTDlvol: 85 mGy DLP: 1400 mGycm COMPARISON: None. FINDINGS: Noncontrast CT head: The ventricles and subarachnoid spaces are normal for patient age. Minimal generalized cerebral volume loss. Moderate patchy supratentorial white matter hypodensities. The swann-white matter interfaces are otherwise maintained. No acute intracranial hemorrhage or herniation. The basal cisterns are patent. The visualized paranasal sinuses are well-aerated. Unremarkable orbits. No acute calvarial fracture or scalp hematoma. CTA neck: Three-vessel aortic arch with calcific plaque of the left subclavian artery at its origin resulting in moderate stenosis. Calcific plaque of the bilateral vertebral arteries at their origins resulting in mild narrowing. Calcific plaque of the bilateral cervical carotid arteries without focal stenosis by NASCET criteria. CTA head: Calcific plaque of the bilateral carotid siphons without focal stenosis or occlusion. The bilateral anterior, middle and posterior arteries are widely patent. No aneurysm or AVM. Major venous structures: Unremarkable. Other findings: Biapical emphysema and pleural-parenchymal scarring. Cervical spondylosis. CT/CTA Head AND Neck W/ Contrast IMPRESSION: CT head: 1. No acute intracranial finding. 2. Findings of chronic microvascular ischemic changes and age-related changes. CTA: 1. No large vessel occlusion, aneurysm or AVM. 2. 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 3. Biapical emphysema. Reading Location: [facility] CC: Dr. Garret Ayala DO; Dr. Alberto Herr MD Database Administration Project Manager: Signed Normal [facility] Carbon dioxide, total [Moles /volume] in Central venous bloodOrdered By: Garret Ayala on 01-13-2025 CO2 [Moles/Vol] 26.7 mmol/L 21.0-32.0 [facility] Chest 1 View (Portable)on Chest 1 View (Portable) [facility] Imaging Services [address] [place] [address] Chest 1 View (Portable) MR#: [id number] Acct: [id number] Name: NANO AGUILAR Rep #: [id number] : 1940 F 85 From: Felicia Armenta nd, MD PCP: Dr. Alberto Herr MD Status: REG ER Study: Chest 1 View (Portable) Date of Exam: 01/13/25 Exam# [id number] Ordering Dr: Garret Ayala DO PROCEDURE: CHEST 1 VIEW (PORTABLE) 01/13/2025 REASON FOR EXAM: CHF TECHNIQUE: Frontal view of the chest. COMPARISON: Chest radiograph 11/29/2024. FINDINGS: Hardware: None. Heart: Heart size is mildly enlarged. Calcific plaque of the thoracic aorta. Lungs: No focal consolidation, pleural effusion or pneumothorax. Bones: Degenerative changes are identified within the thoracic spine. RAD/Chest 1 View (Portable) IMPRESSION: Mild cardiomegaly. Reading Location: [facility] CC: Dr. Garret Ayala DO; Dr. Alberto Herr MD Database Administration Project Manager: Signed Normal [facility] Chloride assayOrdered By: Marquise Ayala on 01-13-2025 Chloride [Moles/Vol] 96 mmol/L Low 98-108 [facility] Emergency Department Summary on 01-13-2025 Emergency Department Summary [facility] Medical Records Department [address] [place] [address] Emergency Department Summary 01/13/25 MR#: [id number] Acct: [id number] Name: NANO AGUILAR Rep #: [id number] : 1940 85 From: Garret Ayala DO PCP: Dr. Alberto Herr MD Status:ADM CHEMA Location: [place] [address] HPI History of Present Illness Chief Complaint: Dizziness Informant: patient and family (Son) Narrative Narrative: 85-year-old female presenting to the emergency room with a chief complaint of dizziness. Patient states that around 0130 hrs. she got up to use the bathroom and could not get out of bed because she was very dizzy. She states that the room felt like it was spinning. She also uses the words lightheadedness. She states that she laid there all night and texted her son a couple times that he did not get the text until he awoke this morning. EMS was called. She stated that she had some chest discomfort prehospital EKG shows a left bundle branch block which is old. Patient states that at some point after her symptoms began she developed an occipital headache. She notes some mild nausea but no vomiting. She denies any urinary symptoms. She has a history of CHF has been on increased Lasix dosing over the past month since she was hospitalized. She is not anticoagulated. [facility] Medical History COPD exacerbation CHF exacerbation Acute hypoxic respiratory failure Osteoarthritis Osteoporosis Non-smoker Irregular heart beat Hypertension Congestive heart failure (CHF) Alcohol abuse Use of cane as ambulatory aid Mitral regurgitation CAD (coronary artery disease) Wears hearing aid Wears glasses Alcohol use Arthritis High cholesterol Excessive bleeding History of recent fall Back pain Dietary restriction Gastric reflux Former smoker Emphysema, unspecified COPD (chronic obstructive pulmonary disease) Asthma Shortness of breath on exertion Leg cramps History of pain when walking History of echocardiogram History of stress test Cardiology follow-up encounter HLD (hyperlipidemia) Valvular heart disease Chest pressure Hepatic cyst Bilateral carotid artery disease Atherosclerotic heart disease of [place] coronary artery without angina pectoris LBBB (left bundle branch block) Renovascular hypertension Essential hypertension GERD (gastroesophageal reflux disease) Nonischemic cardiomyopathy Dyslipidemia Asthma Chest pain Home Medications ???Medication ???Instructions ???Recorded ???Last Taken ???Type aspirin 81 mg tablet,delayed 81 mg PO DAILY@0800 09/09/1801/12 History release loratadine 10 mg tablet 10 mg PO DAILY allergies 09/09/18 01/12/25 History montelukast 10 mg tablet 10 mg PO DAILY allergies 09/09/18 01/12/25 History multivitamin with folic acid 400 1 tab PO DAILY vitamin 09/09/18 History mcg tablet pantoprazole 20 mg tablet,delayed 20 mg PO DAILY reflux 08/08/19 History release hydrocodone-acetaminophen 5-325mg 1 tab PO TID PRN pain 06/19/22 History 5mg-325mg carvedilol 12.5 mg tablet 12.5 mg PO BID blood pressure #180 12/24/23 01/12/25 Rx tabs atorvastatin 40 mg tablet 40 mg PO DAILY cholesterol 4 01/12/25 History cholecalciferol (vitamin D3) 10 10 mcg PO DAILY vitamin 07/11/24 0 01/12/25 History mcg (400 unit) chewable tablet potassium chloride 20 mEq 20 meq PO DAILY #90 tabs 08/08/24 01/12/25 Rx tablet,extended release albuterol sulfate 90 mcg/actuation 2 puff inhalation Q4 PRN wheezin g 11/16/24 11/29/24 08:00 History aerosol inhaler 2 puff fluticasone fur. 100 mcg-umeclid 1 ea inhalation DAILY 11/16/2408/28 History 62.5 mcg-vilant 25 mcg inhalat.powder (Trelegy Ellipta) sacubitril 49 mg-valsartan 51 mg 1 tab PO BID #180 tabs 11/16/24 Rx tablet (Entresto) nitroglycerin 0.4 mg sublingual See Rx Instructions .Route 5 11/28/24 Rx tablet .COMPLEX chest pain #25 tabs furosemide 40 mg tablet (Lasix) 40 mg PO BID #60 tabs 12/01/2408/28 Rx calcium 600 mg (as 2 tab PO DAILY VITAMIN 01/13/25 History carbonate)-vitamin D3 10 mcg (400 unit) tablet dapagliflozin propanediol 10 mg 10 mg PO DAILY 01/13/25 Unknown Hi story tablet (Farxiga) isosorbide mononitrate 60 mg 60 mg PO DAILY 01/13/25 01/12/25 H istory tablet,extended release 24 hr Allergy/AdvReac Type Severity Reaction Status Date / Time adhesive tape AdvReac Itching Verified 01/13/25 07:52 latex AdvReac Rash Verified 01/13/25 07:52 nabumetone (From Relafen) AdvReac Nausea Verified 01/13/25 07:52 ramipril (From Altace) AdvReac Other Verified 01/13/25 07:52 sulfamethoxazole (From AdvReac Nausea Verified 01/13/25 07:52 Bactrim) (more content not included)... Normal [facility] Eosinophil percentageOrdered By: Garret Ayala on 01-13-2025 Eosinophils/100 WBC (Bld) 0.6 % 0-5 [facility] Epithelial cells.squamous LM Ql (Urine sed)Ordered By: Garret Ayala on 01-13-2025 Epithelial cells.squamous LM.HPF (Urine sed) [#/Area] 0 /[HPF] 5-10 [facility] Erythrocyte distribution wid th (RBC) [Ratio]Ordered By: Garret Ayala on 01-13-2025 Erythrocyte distribution width (RBC) [Entitic vol] 46.2 fL High 35.1-43.9 [facility] Erythrocyte distribution wid th ratioOrdered By: Garret Ayala on 01-13-2025 Erythrocyte distribution width (RBC) [Ratio] 12.5 % 11.6-14.6 [facility] Estimation of creatinine trixie aranceOrdered By: Garret Ayala on 01-13-2025 Estimated Creatinine Clearance Calc 44.58 ml/min Low 50-250 [place] [facility] GFR/1.73 sq M.predicted margaret g non-blacks MDRD (S/P/Bld) [Vol rate/Area]Ordered By: Garret Ayala on 01-13-2025 Estimated GFR (MDRD) Non-Af Amer 71 >60 [facility] Comment on above: mL/min/1.73m2 CKD-EP I Creatinine Equation (2020) Glucose Ql (U)Ordered By: Marquise Ayala on 01-13-2025 Urine Glucose (UA) Normal mg/dl Normal [facility] H AND P Exam - [facility] 01-13-2025 H&P Exam - Hospitalist [facility] Medical Records Department [address] [place] [address] H P Exam - Hospitalist 01/13/25 1224 MR#: [id number] Acct: [id number] Name: NANO AGUILAR Rep #: [id number] : 1940 85 From: Miranda Tripathi MD PCP: Dr. Alberto Herr MD Status:ADM CHEMA Location: [place] [address] HPI - General General Date of Admission: 01/13/25 Date of Service: 01/13/25 Chief Complaint: Dizziness HPI Narrative NANO AGUILAR, is a 85 F with a history of coronary artery disease, hypertension, GERD, COPD, CHF who presented to [facility] ED/09/27 with dizziness since 130 this morning. Patient got up to go to the bathroom and when she went back to her bed and laid down and turned over she began to feel like the room was spinning and like the bed was moving, due to this persisting patient came to the ED. In the ED blood pressure initially 180/79, heart rate 68 patient 99% on room air with a temperature of 97.6. Patient's lab workup fairly benign, EKG read demonstrated a left bundle branch block that is not new, UA unremarkable, CTA head and neck with no LVO, did have some left subclavian artery stenosis and biapical emphysema, chest x-ray with mild cardiomegaly but otherwise no acute abnormality. Patient was given Valium and Toradol for a slight occipital headache but due to persistent symptoms hospitalist contacted for admission for supportive care. Patient evaluated at bedside and reports that she did wake up around 1:30 in the morning, was able to ambulate to the bathroom and back without any symptoms and then she laid down and reports after she turned to her side she had the sudden symptoms and she did feel the room spinning in the bed moving, was also nauseous several times with no vomiting. She notes that symptoms have slowly improved and if further improved in the ED though still there, does not feel quite normal when she looks straight up but symptoms are reproduced when she looks her head to the left, again is improving slowly. Does note that for a while patient will get some chest pressure that lasts about half an hour and has no associations with anything, not having any at the time of exam. Does report she also gets some left arm aching from her left shoulder to her left elbow and notes that arm is a little bit tender to the touch when that happens it is worse with movement, does not sound that this is associated with her chest pressure at all and seems to be a separate process, denies any falls or other acute complaints [facility] Medical History COPD exacerbation CHF exacerbation Acute hypoxic respiratory failure Osteoarthritis Osteoporosis Non-smoker Irregular heart beat Hypertension Congestive heart failure (CHF) Alcohol abuse Use of cane as ambulatory aid Mitral regurgitation CAD (coronary artery disease) Wears hearing aid Wears glasses Alcohol use Arthritis High cholesterol Excessive bleeding History of recent fall Back pain Dietary restriction Gastric reflux Former smoker Emphysema, unspecified COPD (chronic obstructive pulmonary disease) Asthma Shortness of breath on exertion Leg cramps History of pain when walking History of echocardiogram History of stress test Cardiology follow-up encounter HLD (hyperlipidemia) Valvular heart disease Chest pressure Hepatic cyst Bilateral carotid artery disease Atherosclerotic heart disease of [place] coronary artery without angina pectoris LBBB (left bundle branch block) Renovascular hypertension Essential hypertension GERD (gastroesophageal reflux disease) Nonischemic cardiomyopathy Dyslipidemia Asthma Chest pain Home Medications ???Medication ???Instructions ???Recorded ???Last Taken ???Type aspirin 81 mg tablet,delayed 81 mg PO DAILY@0800 09/09/1801/12 History release loratadine 10 mg tablet 10 mg PO DAILY allergies 09/09/18 01/12/25 History montelukast 10 mg tablet 10 mg PO DAILY allergies 09/09/18 01/12/25 History multivitamin with folic acid 400 1 tab PO DAILY vitamin 09/09/18 History mcg tablet pantoprazole 20 mg tablet,delayed 20 mg PO DAILY reflux 08/08/19 History release hydrocodone-acetaminophen 5-325mg 1 tab PO TID PRN pain 06/19/22 History 5mg-325mg carvedilol 12.5 mg tablet 12.5 mg PO BID blood pressure #180 12/24/23 01/12/25 Rx tabs atorvastatin 40 mg tablet 40 mg PO DAILY cholesterol 4 01/12/25 History cholecalciferol (vitamin D3) 10 10 mcg PO DAILY vitamin 07/11/24 0 01/12/25 History mcg (400 unit) chewable tablet potassium chloride 20 mEq 20 meq PO DAILY #90 tabs 08/08/24 01/12/25 Rx tablet,extended release albuterol sulfate 90 mcg/actuation 2 puff inhalation Q4 PRN wheezin g 11/16/24 11/29/24 08:00 History aeros (more content not included)... Normal [facility] Hematocrit Auto (Bld) [Volum e fraction]Ordered By: Garret Ayala on 01-13-2025 Hematocrit (Bld) [Volume fraction] 36.9 % Low 37-47 [facility] Hemoglobin measurementOrdere d By: Garret Ayala on 01-13-2025 Hemoglobin (Bld) [Mass/Vol] 12.8 g/dL 12.0-15.0 [facility] Humerus min 2 Viewson 2024 Humerus min 2 Views [facility] Imaging Services [address] [place], [place] [id number] Humerus min 2 Views MR#: [id number] Acct: [id number] Name: NANO AGUILAR Rep #: [id number] : 1940 F 85 From: Felicia Armenta nd, MD PCP: Dr. Alberto Herr MD Status: ADM CHEMA Study: Humerus min 2 Views Date of Exam: 01/13/25 Exam# [id number] Ordering Dr: Miranda Tripathi MD PROCEDURE: HUMERUS MIN 2 VIEWS 01/13/2025 REASON FOR EXAM: PAIN FROM LEFT SHOULDER TO LEFT ELBOW TECHNIQUE: 2 view(s) of the left humerus. COMPARISON: CHEST RADIOGRAPH 01/13/2025. FINDINGS: Bones: Diffuse osseous demineralization. No acute osseous fracture. No aggressive osseous lesions. Joints: Severe arthrosis of the left glenohumeral and acromioclavicular joints. Soft tissues: Soft tissues are unremarkable. Other: IV tubing overlies the left antecubital fossa. RAD/Humerus min 2 Views IMPRESSION: DEGENERATIVE OSTEOARTHROSIS. NO ACUTE FINDINGS. Reading Location: [facility] CC: Dr. Miranda Tripathi MD; Dr. Alberto Herr MD Database Administration Project Manager: Signed Normal [facility] Immature granulocytes/100 WB C Auto (Bld)Ordered By: Garret Ayala on 01-13-2025 Immature granulocytes/100 WBC (Bld) 0.400 % 0.0-0.9 [facility] Comment on above: IG% - Immature Granu locytes (promyelocytes, myelocytes and metamyelocytes) > 1% indicates that a LEFT SHIFT is Present. Ketones Test strip Ql (U)Ord ered By: Garret Ayala on 01-13-2025 Ketones Ql (U) Negative Negative [facility] L499.0042on 01-13-2025 Trop T High Sen 26 ng/L High <=14 [facility] Comment on above: Performed By: #### L 499.0042 #### [facility] [address] [place], [address] L501.4021on 01-13-2025 Trop T High Sen 27 ng/L High <=14 [facility] Comment on above: Performed By: #### L 501.4021 #### [facility] [address] [place], [address] L503.7505on 01-13-2025 Natriuretic peptide B (Bld) [Mass/Vol] 1025 pg/mL Normal <=1800 [facility] Comment on above: Result Comment: Hear t Failure Unlikely: < 300 pg/mL Heart Failure Likely < 50 Years: > 450 pg/mL 50-75 Years: > 900 pg/mL >75 Years: > 1800 pg/mL Performed By: #### L 100.0100, L500.2500, L503.7505 #### [facility] [address] [place], [address] Lymphocytes Auto (Unsp spec) [#/Vol]Ordered By: Garret Ayala on 01-13-2025 Lymphocytes (Bld) [#/Vol] 1.40 10*3/uL 0.83-4.51 [facility] Lymphocytes/100 WBC Auto (Un sp spec)Ordered By: Garret Ayala on 01-13-2025 Lymphocytes/100 WBC (Bld) 20.4 % 19-41 [facility] MCV (mean corpuscular volume ) determinationOrdered By: Garret Ayala on 01-13-2025 MCV (RBC) [Entitic vol] 100.3 fL High 81-99 [facility] Mean corpuscular hemoglobin (MCH) determinationOrdered By: Garret Ayala on 01-13-2025 MCH (RBC) [Entitic mass] 34.8 pg High 27.0-32.0 [facility] Mean corpuscular hemoglobin concentration (MCHC) determinationOrdered By: Garret Ayala on 01-13-2025 MCHC (RBC) [Mass/Vol] 34.7 g/dL 32-36 [facility] Mean platelet volume determi nationOrdered By: Garret Ayala on 01-13-2025 Platelet mean volume (Bld) [Entitic vol] 9.4 fL 6.2-12.0 [facility] Microscopic analysis of urin e for red blood cells (RBC)Ordered By: Garret Ayala on 01-13-2025 Urine RBC 0 SEEN /hpf 0-5 [facility] Monocyte percentageOrdered B y: Garret Ayala on 01-13-2025 Monocytes/100 WBC (Bld) 9.2 % 0-10 [facility] Mucus LM Ql (Urine sed)Order ed By: Garret Ayala on 01-13-2025 Mucus Ql (Urine sed) 0 SEEN /hpf [facility] Natriuretic peptide.B prohor monico N-Terminal [Mass/Vol]Ordered By: Garret Ayala on 01-13-2025 Natriuretic peptide B (Bld) [Mass/Vol] 1025 pg/mL <1800 [facility] Comment on above: Heart Failure Unlike ly: < 300 pg/mLHeart Failure Likely< 50 Years: > 450 pg/mL50-75 Years: > 900 pg/mL>75 Years: > 1800 pg/mL Neutrophil percentageOrdered By: Garret Ayala on 01-13-2025 Neutrophils/100 WBC (Bld) 69.0 % 47-70 [facility] Nitrite Test strip Ql (U)Ord ered By: Garret Ayala on 01-13-2025 Nitrite Ql (U) Negative Negative [facility] Nucleated red blood cell per centageOrdered By: Garret Ayala on 01-13-2025 Nucleated RBC/100 WBC (Bld) [Ratio] 0 % 0-5 [facility] Platelet countOrdered By: Marquise Ayala on 01-13-2025 Platelets (Bld) [#/Vol] 176 10*3/uL 150-450 [facility] Potassium (Unsp spec) [Mass/ Vol]Ordered By: Garret Ayala on 01-13-2025 Potassium [Moles/Vol] 4.0 mmol/L 3.3-5.1 [facility] Protein Test strip Ql (U)Ord ered By: Garret Ayala on 01-13-2025 Protein Ql (U) 15 mg/dl High Negative [facility] RBC Auto (Bld) [#/Vol]Ordere d By: Garret Ayala on 01-13-2025 RBC (Bld) [#/Vol] 3.68 10*6/uL Low 4.2-5.4 [facility] Serum creatinine measurement (mass/volume)Ordered By: Garret Ayala on 01-13-2025 Creatinine [Mass/Vol] 0.80 mg/dL 0.70-1.20 [facility] Serum glucose measurement (m ass/volume)Ordered By: Garret Ayala on 01-13-2025 Glucose [Mass/Vol] 105 mg/dL High 70-99 [facility] Serum or plasma calcium tamir urement (mass/volume)Ordered By: Garret Ayala on 01-13-2025 Calcium [Mass/Vol] 10.1 mg/dL 7.6-11.0 [facility] Serum or plasma urea nitroge n measurement (mass/volume)Ordered By: Garret Ayala on 01-13-2025 Urea nitrogen [Mass/Vol] 20 mg/dL High 4-19 [facility] Sodium levelOrdered By: Dominic Ayala on 01-13-2025 Sodium [Moles/Vol] 134 mmol/L 133-145 [facility] Troponin T.cardiac High sens itivity method [Mass/Vol]Ordered By: Garret Ayala on 01-13-2025 Troponin T High Sensitivity 2 Hour 26 ng/L High <14 [facility] Troponin T High Sensitivity 27 ng/L High <14 [facility] Urinalysis, Completeon 01-13 EPI,SQUAMOUS 0-5 SEEN Normal 5-10 [facility] Comment on above: Order Comment: CLEAN CATCH Performed By: #### L [id number] #### [facility] [address] [place], [address] WBC 0-5 SEEN Normal 0-5 [facility] Comment on above: Order Comment: CLEAN CATCH Performed By: #### L [id number] #### [facility] [address] [place], [address] BACTERIA 0 SEEN Normal None Seen [facility] Comment on above: Order Comment: CLEAN CATCH Performed By: #### L [id number] #### [facility] [address] [place], [address] Mucus Ql (Urine sed) 0 SEEN Normal [facility] Comment on above: Order Comment: CLEAN CATCH Performed By: #### L [id number] #### [facility] [address] [place], [address] RBC 0 SEEN Normal 0-5 [facility] Comment on above: Order Comment: CLEAN CATCH Performed By: #### L [id number] #### [facility] [address] [place], [address] Urine blood detectionOrdered By: Garret Ayala on 01-13-2025 Urine Occult Blood Negative Negative [facility] Urine clarityOrdered By: Paresh Ayala on 01-13-2025 Clarity (U) Clear Clear [facility] Urine color determinationOrd ered By: Garret Ayala on 01-13-2025 Color (U) Yellow Yellow [facility] Urine leukocyte esterase det ection by dipstickOrdered By: Garret Ayala on 01-13-2025 Leukocyte esterase Test strip Ql (U) Negative Negative [facility] Urine pHOrdered By: Garret bahena on 01-13-2025 pH (U) 8.0 [pH] 5.0 - 8.0 [facility] Urine sediment bacteria coun t by microscopy (number/high power field)Ordered By: Garret Ayala on 01-13-2025 Bacteria LM.HPF (Urine sed) [#/Area] 0 /[HPF] None Seen [facility] Urine specific gravity measu rementOrdered By: Garret Ayala on 01-13-2025 Specific gravity (U) [Rel density] 1.010 1.002-1.03 0 [facility] Urobilinogen Ql (U)Ordered B y: Garret Ayala on 01-13-2025 Urine Urobilinogen Normal mg/dl Normal [facility] White blood cell (WBC) count Ordered By: Garret Ayala on 01-13-2025 WBC (Bld) [#/Vol] 6.9 10*3/uL 4.4-11.0 [facility] White blood cell countOrdere d By: Garret Ayala on 01-13-2025 Urine WBC 0-5 SEEN /hpf 0-5 [facility] CNPNon 12-08-2024 CNPN Telephone ([facility] NANO AGUILAR ([id number]) 1940 F Date Time Provider Department 12/08/24 ALBERTO HERR During your visit today, we recorded the following information about you: Linda Lowery RN 12/08/2024 2:44 PM Signed Juma PT calling from [facility] to report plan of care for patient and PT will visit patient one time a week for four weeks. PT will work with patient on functional mobility. No call back necessary. GEORGE Avalos Victor H, MD 12/09/2024 9:19 AM Signed Noted. Allergies As of Date: 12/08/2024 Noted Allergy Reaction ALTACE (RAMIPRIL) 12/06/2012 14 - Other: See Comments Comments: Cough BACTRIM (SULFAMETHOXAZOLE-TRIMETH* 8 - GI Upset Comments: Pt having GI upset and stomach pain LATEX 04/17/2009 9 - Itching Comments: Blisters RELAFEN (NABUMETONE) 06/09/2005 8 - GI Upset Date Reviewed: 07/19/2024 Reviewed by: Jannie Monahan LPN - Fully Assessed Reason for Visit: [facility] PT POC [Other] Prescriptions as of 12/09/2024 - HYDROcodone-acetaminophen (NORCO) 5-325 mg per tablet Take 1 tablet by mouth three times a day as needed for pain for up to 7 days. - TRELEGY ELLIPTA 100-62.5-25 mcg inhalation powder inhale 1 puff by mouth and INTO THE LUNGS once daily - albuterol (PROVENTIL) 2.5 mg /3 mL (0.083 %) nebulizer solution Use 3 mL via nebulizer every 4 hours as needed for wheezing/shortness of breath. DX: ICD9: 493.00, ICD10: J45.909 - fluticasone (FLONASE) 50 mcg/actuation nasal spray Use 1 [place] in each nostril once daily. - albuterol HFA (PROVENTIL HFA, VENTOLIN HFA) 90 mcg/actuation inhaler Inhale 2 Puffs as instructed. - loratadine (CLARITIN) 10 mg tablet TAKE 1 TABLET BY MOUTH EVERY DAY NEEDED FOR ALLERGIES - montelukast (SINGULAIR) 10 mg tablet Take 1 tablet by mouth once daily. - pantoprazole DR (PROTONIX) 20 mg tablet Take 1 tablet by mouth daily before breakfast. Take on empty stomach, 1/2 hr before meal. - isosorbide mononitrate ER (IMDUR) 30 mg 24 hr tablet Take 1 tablet by mouth once daily. - losartan (COZAAR) 50 mg tablet Take 1 tablet by mouth once daily. - nitroglycerin sublingual (NITROSTAT) 0.4 mg SL [...] tablet by mouth once daily. - FISH [id number]-7-COENZYME Q10 1,900 MG-640 MG-50 MG/2.5 G ORAL PACKET Take one(1) tablet daily. Problem List As Of Date 12/08/2024 Noted Resolved Extrinsic asthma [J45.909] 06/09/2005 08/01/2021 [...] 01/05/2012 Osteoarthritis, knee [M17.9] 06/12/2009 01/05/2012 Postmenopausal Atrophic Vaginitis [N95.2] 10/02/2009 Female stress incontinence [N39.3] 10/02/2009 03/06/2015 Arthritis of knee, degenerative [M17.9] 11/19/2011 Uterine prolapse without mention of vaginal wal*12/21/2011 03/06/2015 Degeneration of intervertebral disc [[id number]] 03/06/2015 Personal history of renal artery stenosis [Z86.*08/23/2009 03/06/2015 Ganglion cyst [M67.40] 07/26/2012 05/17/2013 Occipital neuralgia [M54.81] 05/17/2013 01/05/2017 Lumbago [M54.50] 05/17/2013 Insomnia [G47.00] 05/17/2013 Emphysema of lung (HCC) [J43.9] 03/05/2015 LBBB (left bundle branch block) [I44.7] 03/05/2015 Thoracic or lumbosacral neuritis or radiculitis*03/07/2015 01/05/2017 Special screening for malignant neoplasms, colo*05/02/2015 05/02/2015 Atherosclerosis of [place] coronary artery of na*07/03/2016 Bilateral carotid artery disease (HCC) [I77.9] 07/03/2016 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 She states if she doesn't make her appointment they won't fill her pain pills for her. Pain management told her to ask her PCP to see if they would be willing to fill her pain pills for her. Pt reports she is taking the [employer] differently than it is written on her medication list. It is written Hydrocodone-Acetaminophen 7.5-325, Pt states she takes 5-325 PRN TID for pain. Pt son said he last Rx was for 20 pills and she would want them sent to [facility] in [place]. Please call and advise Pt. Pts son states she is almost out of medication, and he doesn't think she should go out since she had fluid un her lungs. The patient has been identified by name and date of : Yes Caregiver verified no other encounters exist for this prescription request: Yes Caregiver confirmed with patient/requestor that no other refills are due, in the near future, with this provider at this time: Yes The last office visit in the department: 07/19/2024 Does the patient have a future office visit with this provider/department: Yes 01/22/2025 Requested Prescriptions Pending Prescriptions Disp Refills HYDROcodone-acetaminophen (NORCO) 5-325 mg per tablet Sig: Take 1 tablet by mouth three times a day as needed for pain. Violeta Infante RN December 07, 2024 3:13 PM Alberto Herr MD 12/07/2024 6:21 PM Signed The following approved medication requests have been transmitted electronically. Requested Prescriptions Signed Prescriptions Disp Refills HYDROcodone-acetaminophen (NORCO) 5-325 mg per tablet 21 tablet 0 Sig: Take 1 tablet by mouth three times a day as needed for pain for up to 7 days. Authorizing Provider: ALBERTO HERR MD Babulski, Amanda, RN 12/07/2024 7:01 PM Signed Pts son called and is notified of providers message. He voices understanding. Violeta Infante RN Allergies As of Date: 12/07/2024 Noted Allergy Reaction ALTSAVANNAH (RAMIPRIL) 12/06/2012 14 - Other: See Comments Comments: Cough BACTRIM (SULFAMETHOXAZOLE-TRIMETH* 8 - GI Upset Comments: Pt having GI upset and stomach pain LATEX 04/17/2009 9 - Itching Comments: Blisters RELAFEN (NABUMETONE) 06/09/2005 8 - GI Upset Date Reviewed: 07/19/2024 Reviewed by: Jannie Monahan LPN - Fully Assessed Reason for Visit: Patient Question [0657] Medication Problem [65] Primary Visit Diagnosis:Chronic low back pain, unspecified back pain laterality, unspecified whether sciatica present [M54.50, G89.29] Order(s):HYDROcodone-acetamin ophen (NORCO) 5-325 mg per tabletTake 1 tablet by mouth three times a day as needed for pain for up to 7 days.Disp: 21 tabletRfl: 0 Prescriptions as of 12/07/2024 - HYDROcodone-acetaminophen (NORCO) 5-325 mg per tablet Take 1 tablet by mouth three times a day as needed for pain for up to 7 days. - TRELEGY ELLIPTA 100-62.5-25 mcg inhalation powder inhale 1 puff by mouth and INTO THE LUNGS once daily - albuterol (PROVENTIL) 2.5 mg /3 mL (0.083 %) nebulizer solution Use 3 mL via nebulizer every 4 hours as needed for wheezing/shortness of breath. DX: ICD9: 493.00, ICD10: J45.909 - fluticasone (FLONASE) 50 mcg/actuation nasal spray Use 1 [place] in each nostril once daily. - albuterol HFA (PROVENTIL HFA, VENTOLIN HFA) 90 mcg/actuation inhaler Inhale 2 Puffs as instructed. - loratadine (CLARITIN) 10 mg tablet TAKE 1 TABLET BY MOUTH EVERY DAY NEEDED FOR ALLERGIES - montelukast (SINGULAIR) 10 mg tablet Take 1 tablet by mouth once daily. - pantoprazole DR (PROTONIX) 20 mg tablet Take 1 tablet by mouth daily before breakfast. Take on empty stomach, 1/2 hr before meal. - isosorbide mononitrate ER (IMDUR) 30 mg 24 hr tablet Take 1 tablet by mouth once daily. - losartan (COZAAR) 50 mg tablet Take 1 tablet by mouth once daily. - nitroglycerin sublingual (NITROSTAT) 0.4 mg SL [...] by mouth once daily. - cholecalciferol, Vitamin (more content not included)... Normal [facility]AN[facility] AGU[facility] ([id number]) 1940 F Date Time Provider Department 12/04/24 ALBERTO HERR INTWS During your visit today, we recorded the following information about you: Linda Lowery RN 12/04/2024 3:39 PM Signed Emmie VAZQUEZ calling from [facility] to report plan of care for patient and SN will visit patient two times a week for three weeks and one time a week for one week. SN will work with patient on monitoring and education of CHF and COPD . Emmie requesting a verbal order to add a home health aide weekly for two weeks starting next week and an order for social sciences lecturer eval and treat to assist with community resources for private duty nursing services. Emmie requests call back at [phone]. GEORGE Avalos Naz M, APRN.ELVA 12/04/2024 4:25 PM Signed Okay for orders Brooke Cordoba APRN.Valentina Landis MA 12/04/2024 4:44 PM Signed Left message on confidential vm Valentina Hutton MA Allergies As of Date: 12/04/2024 Noted Allergy Reaction ALTACE (RAMIPRIL) 12/06/2012 14 - Other: See Comments Comments: Cough BACTRIM (SULFAMETHOXAZOLE-TRIMETH* 8 - GI Upset Comments: Pt having GI upset and stomach pain LATEX 04/17/2009 9 - Itching Comments: Blisters RELAFEN (NABUMETONE) 06/09/2005 8 - GI Upset Date Reviewed: 07/19/2024 Reviewed by: Jannie Monahan LPN - Fully Assessed Reason for Visit: [facility] SN POC [Other] Prescriptions as of 12/04/2024 - TRELEGY ELLIPTA 100-62.5-25 mcg inhalation powder inhale 1 puff by mouth and INTO THE LUNGS once daily - albuterol (PROVENTIL) 2.5 mg /3 mL (0.083 %) nebulizer solution Use 3 mL via nebulizer every 4 hours as needed for wheezing/shortness of breath. DX: ICD9: 493.00, ICD10: J45.909 - fluticasone (FLONASE) 50 mcg/actuation nasal spray Use 1 [place] in each nostril once daily. - albuterol HFA (PROVENTIL HFA, VENTOLIN HFA) 90 mcg/actuation inhaler Inhale 2 Puffs as instructed. - loratadine (CLARITIN) 10 mg tablet TAKE 1 TABLET BY MOUTH EVERY DAY NEEDED FOR ALLERGIES - montelukast (SINGULAIR) 10 mg tablet Take 1 tablet by mouth once daily. - pantoprazole DR (PROTONIX) 20 mg tablet Take 1 tablet by mouth daily before breakfast. Take on empty stomach, 1/2 hr before meal. - isosorbide mononitrate ER (IMDUR) 30 mg 24 hr tablet Take 1 tablet by mouth once daily. - losartan (COZAAR) 50 mg tablet Take 1 tablet by mouth once daily. - nitroglycerin sublingual (NITROSTAT) 0.4 mg SL tablet Dissolve 1 tablet under the tongue. DISSOLVE ONE(1) TABLET UNDER THE TOUNGUE NEEDED FOR CHEST PAIN,EVERY 5 MIN X3 - carvedilol (COREG) 12.5 mg tablet Take 1 tablet by mouth twice daily. - atorvastatin (LIPITOR) 40 mg tablet Take 1 tablet by mouth once daily. - HYDROcodone-Acetaminophen (NORCO) 7.5-325 mg per tablet Take 1 tablet by mouth three times daily. Per pain management. - desoximetasone (TOPICORT) 0.25 % cream Apply [...] tablet by mouth once daily. - FISH HZI-MGTJS-9-COENZYME Q10 1,900 MG-640 MG-50 MG/2.5 G ORAL PACKET Take one(1) tablet daily. Problem List As Of Date 12/04/2024 Noted Resolved Extrinsic asthma [J45.909] 06/09/2005 08/01/2021 [...] 01/05/2012 Osteoarthritis, knee [M17.9] 06/12/2009 01/05/2012 Postmenopausal Atrophic Vaginitis [N95.2] 10/02/2009 Female stress incontinence [N39.3] 10/02/2009 03/06/2015 Arthritis of knee, degenerative [M17.9] 11/19/2011 Uterine prolapse without mention of vaginal wal*12/21/2011 03/06/2015 Degeneration of intervertebral disc [XYX7321] 03/06/2015 Personal history of renal artery stenosis [Z86.*08/23/2009 03/06/2015 Ganglion cyst [M67.40] 07/26/2012 05/17/2013 Occipital neuralgia [M54.81] 05/17/2013 01/05/2017 Lumbago [M54.50] 05/17/2013 Insomnia [G47.00] 05/17/2013 Emphysema of lung (HCC) [J43.9] 03/05/2015 LBBB (left bundle branch block) [I44.7] 03/05/2015 Thoracic or lumbosacral neuritis or radiculitis*03/07/2015 01/05/2017 Special screen (more content not included)... Normal [facility] BUN/creatinine ratioOrdered By: Donal Huang on 12-01-2024 Urea nitrogen/Creatinine [Mass ratio] 34.1 mg/mg High 10-20 [facility] 12-01-2024 [place] Telephone (INT[facility]) NANO AGUILAR ([id number]) 1940 F Date Time Provider Department 12/01/24 ALBERTO HERR INTEllenWS During your visit today, we recorded the following information about you: Aleisha Anderson LPN 12/01/2024 2:10 PM Signed Rita from [facility] Home Health calling patient is to be discharged today may go home with oxygen, had hypoxic respiratory failure. Received orders for mcc and PT, start of care would be Wednesday. Asking if Dr Herr would follow patient and sign orders? Please advise Alberto Herr MD 12/02/2024 10:37 PM Signed I will follow with HH. Prema Chapa RN 12/04/2024 9:32 AM Signed Rita with [facility] HH notified. Prema Chapa RN Allergies As of Date: 12/01/2024 Noted Allergy Reaction ALTACE (RAMIPRIL) 12/06/2012 14 - Other: See Comments Comments: Cough BACTRIM (SULFAMETHOXAZOLE-TRIMETH* 8 - GI Upset Comments: Pt having GI upset and stomach pain LATEX 04/17/2009 9 - Itching Comments: Blisters RELAFEN (NABUMETONE) 06/09/2005 8 - GI Upset Date Reviewed: 07/19/2024 Reviewed by: Jannie Monahan LPN - Fully Assessed Reason for Visit: home health calling [Other] Prescriptions as of 12/04/2024 - TRELEGY ELLIPTA 100-62.5-25 mcg inhalation powder inhale 1 puff by mouth and INTO THE LUNGS once daily - albuterol (PROVENTIL) 2.5 mg /3 mL (0.083 %) nebulizer solution Use 3 mL via nebulizer every 4 hours as needed for wheezing/shortness of breath. DX: ICD9: 493.00, ICD10: J45.909 - fluticasone (FLONASE) 50 mcg/actuation nasal spray Use 1 [place] in each nostril once daily. - albuterol HFA (PROVENTIL HFA, VENTOLIN HFA) 90 mcg/actuation inhaler Inhale 2 Puffs as instructed. - loratadine (CLARITIN) 10 mg tablet TAKE 1 TABLET BY MOUTH EVERY DAY NEEDED FOR ALLERGIES - montelukast (SINGULAIR) 10 mg tablet Take 1 tablet by mouth once daily. - pantoprazole DR (PROTONIX) 20 mg tablet Take 1 tablet by mouth daily before breakfast. Take on empty stomach, 1/2 hr before meal. - isosorbide mononitrate ER (IMDUR) 30 mg 24 hr tablet Take 1 tablet by mouth once daily. - losartan (COZAAR) 50 mg tablet Take 1 tablet by mouth once daily. - nitroglycerin sublingual (NITROSTAT) 0.4 mg SL tablet Dissolve 1 tablet under the tongue. DISSOLVE ONE(1) TABLET UNDER THE TOUNGUE NEEDED FOR CHEST PAIN,EVERY 5 MIN X3 - carvedilol (COREG) 12.5 mg tablet Take 1 tablet by mouth twice daily. - atorvastatin (LIPITOR) 40 mg tablet Take 1 tablet by mouth once daily. - HYDROcodone-Acetaminophen (NORCO) 7.5-325 mg per tablet Take 1 tablet by mouth three times daily. Per pain management. - desoximetasone (TOPICORT) 0.25 % cream Apply [...] tablet by mouth once daily. - FISH XAO-LLVFO-3-COENZYME Q10 1,900 MG-640 MG-50 MG/2.5 G ORAL PACKET Take one(1) tablet daily. 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] 03/06/2015 Personal history of renal artery stenosis [Z86.*08/23/2009 03/06/2015 Ganglion cyst [M67.40] 07/26/2012 05/17/2013 Occipital neuralgia [M54.81] 05/17/2013 01/05/2017 Lumbago [M54.50] 05/17/2013 Insomnia [G47.00] 05/17/2013 Emphysema of lung (HCC) [J43.9] 03/05/2015 LBBB (left bundle branch block) [I44.7] 03/05/2015 Thoracic or lumbosacral neuritis or radiculitis*03/07/2015 01/05/2017 Special screening for malignant neoplasms, colo*05/02/2015 05/02/2015 Atherosclerosis of [place] coronary artery of na*07/03/2016 Bilateral carotid artery disease (HCC) [I77.9] 07/03/2016 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 Normal [facility] Carbon dioxide measurementOr dered By: Donal Huang on 12-01-2024 CO2 [Moles/Vol] 22.7 mmol/L 22.0-29.0 [facility] Chloride measurementOrdered By: Donal Huang on 12-01-2024 Chloride [Moles/Vol] 91 mmol/L Low 96-108 [facility] Estimation of creatinine trixie aranceOrdered By: Donal Huang on 12-01-2024 Estimated Creatinine Clearance Calc 39.50 ml/min [facility] GFR/1.73 sq M.predicted margaret g non-blacks MDRD (S/P/Bld) [Vol rate/Area]Ordered By: Donal Huang on 12-01-2024 Estimated GFR (MDRD) Non-Af Amer 61 >60 [facility] Comment on above: mL/min/1.73m2 CKD-EP I Creatinine Equation (2020) Serum creatinine measurement (mass/volume)Ordered By: Donal Huang on 12-01-2024 Creatinine [Mass/Vol] 0.92 mg/dL 0.70-1.20 [facility] Serum glucose measurement (m ass/volume)Ordered By: Donal Huang on 12-01-2024 Glucose [Mass/Vol] 147 mg/dL High 70-99 [facility] Serum or plasma anion gap de termination (moles/volume)Ordered By: Donal Huang on 12-01-2024 Anion gap [Moles/Vol] 13 mmol/L 5-15 [facility] Serum or plasma calcium tamir urement (mass/volume)Ordered By: Donal Huang on 12-01-2024 Calcium [Mass/Vol] 9.2 mg/dL 7.6-11.0 [facility] Serum or plasma potassium me asurementOrdered By: Donal Huang on 12-01-2024 Potassium [Moles/Vol] 4.7 mmol/L 3.3-5.1 [facility] Serum or plasma sodium measu rement (moles/volume)Ordered By: Donal Huang on 12-01-2024 Sodium [Moles/Vol] 127 mmol/L Low 133-145 [facility] Serum or plasma urea nitroge n measurement (mass/volume)Ordered By: Donal Huang on 12-01-2024 Urea nitrogen [Mass/Vol] 31 mg/dL High 4-19 [facility] Absolute neutrophil countOrd ered By: Jaime Vela on 11-30-2024 Neutrophils (Bld) [#/Vol] 9.0 10*3/uL High 2.0-7.7 [facility] Basophil percentageOrdered B y: Jaime Vela on 11-30-2024 Basophils/100 WBC (Bld) 0.1 % 0-1 [facility] Eosinophil percentageOrdered By: Jaime Vela on 11-30-2024 Eosinophils/100 WBC (Bld) 0.2 % 0-5 [facility] Erythrocyte distribution wid th (RBC) [Ratio]Ordered By: Jaime Vela on 11-30-2024 Erythrocyte distribution width (RBC) [Entitic vol] 42.1 fL 35.1-43.9 [facility] Erythrocyte distribution wid th ratioOrdered By: Jaime Vela on 11-30-2024 Erythrocyte distribution width (RBC) [Ratio] 12.1 % 11.6-14.6 [facility] Glucose [facility] at [facility] deOrdered By: Donal Huang on 11-30-2024 Bedside Glucose (Misc Panel) 121 mg/dL High 74-106 [facility] Comment on above: MANAGEMENT OF PATIEN T CARE PER NURSING PROTOCOL Hematocrit Auto (Bld) [Volum e fraction]Ordered By: Jaime Vela on 11-30-2024 Hematocrit (Bld) [Volume fraction] 40.0 % 37-47 [facility] Hemoglobin measurementOrdere d By: Jaime Vela on 11-30-2024 Hemoglobin (Bld) [Mass/Vol] 14.4 g/dL 12.0-15.0 [facility] Immature granulocytes/100 WB C Auto (Bld)Ordered By: Jaime Vela on 11-30-2024 Immature granulocytes/100 WBC (Bld) 0.800 % 0.0-0.9 [facility] Comment on above: IG% - Immature Granu locytes (promyelocytes, myelocytes and metamyelocytes) > 1% indicates that a LEFT SHIFT is Present. Lymphocytes Auto (Unsp spec) [#/Vol]Ordered By: Jaime Vela on 11-30-2024 Lymphocytes (Bld) [#/Vol] 1.05 10*3/uL 0.83-4.51 [facility] Lymphocytes/100 WBC Auto (Un sp spec)Ordered By: Jaime Vela on 11-30-2024 Lymphocytes/100 WBC (Bld) 9.9 % Low 19-41 [facility] MCV (mean corpuscular volume ) determinationOrdered By: Jaime Vela on 11-30-2024 MCV (RBC) [Entitic vol] 95.7 fL 81-99 [facility] Mean corpuscular hemoglobin (MCH) determinationOrdered By: Jaime Vela on 11-30-2024 MCH (RBC) [Entitic mass] 34.4 pg High 27.0-32.0 [facility] Mean corpuscular hemoglobin concentration (MCHC) determinationOrdered By: Jaime Vela on 11-30-2024 MCHC (RBC) [Mass/Vol] 36.0 g/dL 32-36 [facility] Mean platelet volume determi nationOrdered By: Jaime Vela on 11-30-2024 Platelet mean volume (Bld) [Entitic vol] 9.2 fL 6.2-12.0 [facility] Monocyte percentageOrdered B y: Jaime Vela on 11-30-2024 Monocytes/100 WBC (Bld) 4.3 % 0-10 [facility] Neutrophil percentageOrdered By: Jaime Vela on 11-30-2024 Neutrophils/100 WBC (Bld) 84.7 % High 47-70 [facility] Nucleated red blood cell per centageOrdered By: Jaime Vela on 11-30-2024 Nucleated RBC/100 WBC (Bld) [Ratio] 0 % 0-5 [facility] Platelet countOrdered By: Devang Vela on 11-30-2024 Platelets (Bld) [#/Vol] 190 10*3/uL 150-450 [facility] RBC Auto (Bld) [#/Vol]Ordere d By: Jaime Vela on 11-30-2024 RBC (Bld) [#/Vol] 4.18 10*6/uL Low 4.2-5.4 [facility] White blood cell (WBC) count Ordered By: Jaime Vela on 11-30-2024 WBC (Bld) [#/Vol] 10.6 10*3/uL 4.4-11.0 [facility] Influenza virus A and B and SARS-CoV-2 (COVID-19) and Respiratory syncytial virus RNAOrdered By: Jaime Vela on 11-29-2024 SARS-CoV-2 (COVID-19) RNA ANNABELLA+probe Ql (Unsp spec) [facility] Laboratory - Chemistry and C hemistry - challengeOrdered By: Jessee Zapata on 11-29-2024 Natriuretic peptide B (Bld) [Mass/Vol] 7986 pg/mL High <1800 [facility] Comment on above: Heart Failure Unlike ly: < 300 pg/mLHeart Failure Likely< 50 Years: > 450 pg/mL50-75 Years: > 900 pg/mL>75 Years: > 1800 pg/mL HF Unlikely: <300 pg/mL HF Likely: <50 years: >450 pg/mL 50 - 75 years: >900 pg/mL >75 years: >1800 pg/mL No Panel InformationOrdered By: Jessee Zapata on 11-29-2024 Troponin T Hi Sensitivity 4Hr Delta 0 [facility] Comment on above: Downstream testing a nd, if negative, consider other etiologies for elevated troponin. Troponin T Hi Sensitivity 2Hr Delta 0 [facility] Comment on above: If clinical suspicio n for ACS is high, suggest getting a third troponin. Otherwise, stress test or CTCA. Troponin T High Sensitivity 28 ng/L High <14 [facility] Troponin T.cardiac High sens itivity method [Mass/Vol]Ordered By: Jessee Zapata on 11-29-2024 Troponin T High Sensitivity 4 Hour 28 ng/L High <14 [facility] Troponin T High Sensitivity 2 Hour 28 ng/L High <14 [facility] CNPNon 08-14-2024 CNPN Telephone (LISA) NANO AGUILAR ([id number]) 1940 F Date Time Provider Department 08/14/24 STEPHANIE HERNANDEZ During your visit today, we recorded the following information about you: Anabelle Bradley LPN 08/14/2024 1:44 PM Signed Patient called in and states 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 She is not sure if a new prescription needs called in. ZOYA Anderson Kathleen, LPN 08/14/2024 3:59 PM Signed Called [facility], they do not have Trelegy in stock but it is on order for tomorrow. Aurea Kwan LPN Allergies As of Date: 08/14/2024 Noted Allergy Reaction ALTACE (RAMIPRIL) 12/06/2012 14 - Other: See Comments Comments: Cough BACTRIM (SULFAMETHOXAZOLE-TRIMETH* 8 - GI Upset Comments: Pt having GI upset and stomach pain LATEX 04/17/2009 9 - Itching Comments: Blisters RELAFEN (NABUMETONE) 06/09/2005 8 - GI Upset Date Reviewed: 07/19/2024 Reviewed by: Jannie Monahan LPN - Fully Assessed Prescriptions as of 08/14/2024 - TRELEGY ELLIPTA 100-62.5-25 mcg inhalation powder inhale 1 puff by mouth and INTO THE LUNGS once daily - albuterol (PROVENTIL) 2.5 mg /3 mL (0.083 %) nebulizer solution Use 3 mL via nebulizer every 4 hours as needed for wheezing/shortness of breath. DX: ICD9: 493.00, ICD10: J45.909 - fluticasone (FLONASE) 50 mcg/actuation nasal spray Use 1 [place] in each nostril once daily. - albuterol HFA (PROVENTIL HFA, VENTOLIN HFA) 90 mcg/actuation inhaler Inhale 2 Puffs as instructed. - loratadine (CLARITIN) 10 mg tablet TAKE 1 TABLET BY MOUTH EVERY DAY NEEDED FOR ALLERGIES - montelukast (SINGULAIR) 10 mg tablet Take 1 tablet by mouth once daily. - pantoprazole DR (PROTONIX) 20 mg tablet Take 1 tablet by mouth daily before breakfast. Take on empty stomach, 1/2 hr before meal. - isosorbide mononitrate ER (IMDUR) 30 mg 24 hr tablet Take 1 tablet by mouth once daily. - losartan (COZAAR) 50 mg tablet Take 1 tablet by mouth once daily. - nitroglycerin sublingual (NITROSTAT) 0.4 mg SL tablet Dissolve 1 tablet under the tongue. DISSOLVE ONE(1) TABLET UNDER THE TOUNGUE NEEDED FOR CHEST PAIN,EVERY 5 MIN X3 - carvedilol (COREG) 12.5 mg tablet Take 1 tablet by mouth twice daily. - atorvastatin (LIPITOR) 40 mg tablet Take 1 tablet by mouth once daily. - HYDROcodone-Acetaminophen (NORCO) 7.5-325 mg per tablet Take 1 tablet by mouth three times daily. Per pain management. - desoximetasone (TOPICORT) 0.25 % cream Apply [...] tablet by mouth once daily. - FISH VPC-FBEUM-5-COENZYME Q10 1,900 MG-640 MG-50 MG/2.5 G ORAL PACKET Take one(1) tablet daily. 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] 06/09/2005 08/01/2021 [...] 01/05/2012 Osteoarthritis, knee [M17.9] 06/12/2009 01/05/2012 Postmenopausal Atrophic Vaginitis [N95.2] 10/02/2009 Female stress incontinence [N39.3] 10/02/2009 03/06/2015 Arthritis of knee, degenerative [M17.9] 11/19/2011 Uterine prolapse without mention of vaginal wal*12/21/2011 03/06/2015 Degeneration of intervertebral disc [CYS3183] 03/06/2015 Personal history of renal artery stenosis [Z86.*08/23/2009 03/06/2015 Ganglion cyst [M67.40] 07/26/2012 05/17/2013 Occipital neuralgia [M54.81] 05/17/2013 01/05/2017 Lumbago [M54.50] 05/17/2013 Insomnia [G47.00] 05/17/2013 Emphysema of lung (HCC) [J43.9] 03/05/2015 LBBB (left bundle branch block) [I44.7] 03/05/2015 Thoracic or lumbosacral neuritis or radiculitis*03/07/2015 01/05/2017 Special screening for malignant neoplasms, colo*05/02/2015 05/02/2015 Atherosclerosis of [place] coronary artery of na*07/03/2016 Bilateral carotid artery disease (HCC) [I77.9] 07/03/2016 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 Normal [facility] Basophil percentageOrdered B y: Kellee Connor on 2024 Basophil percentage < 1.0 mg/dL 0.55-1.02 [facility] No Panel InformationOrdered By: Kellee Connor on 2024 Bedside Estimated GFR (eGFR) > 60.0000 mL/min >60 [facility] Comprehensive metabolic 2000 panelon 07-29-2023 Albumin [Mass/Vol] 4.7 g/dL 3.9 - 4.9 g/dL [facility] ALP [Catalytic activity/Vol] 61 U/L 34 - 123 U/L [facility] ALT [Catalytic activity/Vol] 20 U/L 7 - 38 U/L [facility] Anion gap [Moles/Vol] 11 mmol/L 9 - 18 mmol/L [facility] AST [Catalytic activity/Vol] 24 U/L 13 - 35 U/L [facility] Bilirubin [Mass/Vol] 0.9 mg/dL 0.2 - 1 .3 mg/dL [facility] Calcium [Mass/Vol] 9.7 mg/dL 8.5 - 10. 2 mg/dL [facility] Chloride [Moles/Vol] 97 mmol/L 97 - 10 5 mmol/L [facility] CO2 [Moles/Vol] 25 mmol/L 22 - 30 mmol/L [facility] Creatinine [Mass/Vol] 0.68 mg/dL 0.58 - 0.96 mg/dL [facility] Estimated Glomerular Filtration Rate 85 mL/min/1.73m >=60 mL/min/1.7 3m [facility] Glucose [Mass/Vol] 101 mg/dL High 74 - 99 mg/dL [facility] Potassium [Moles/Vol] 4.3 mmol/L 3.7 - 5.1 mmol/L [facility] Protein [Mass/Vol] 7.1 g/dL 6.3 - 8.0 g/dL [facility] Sodium [Moles/Vol] 133 mmol/L Low 136 - 144 mmol/L [facility] Urea nitrogen [Mass/Vol] 9 mg/dL 7 - 21 mg/dL [facility] CBC panel Auto (Bld)on 07-28 Erythrocyte distribution width (RBC) [Ratio] 12.6 % 11.5 - 15.0 % [facility] Hematocrit (Bld) [Volume fraction] 41.9 % 36.0 - 46.0 % [facility] Hemoglobin (Bld) [Mass/Vol] 14.5 g/dL 11.5 - 15.5 g/dL [facility] MCH (RBC) [Entitic mass] 34.0 pg 26.0 - 34.0 pg [facility] MCHC (RBC) [Mass/Vol] 34.6 g/dL 30.5 - 36.0 g/dL [facility] MCV (RBC) [Entitic vol] 98.1 fL 80.0 - 100.0 fL [facility] Nucleated RBC (Bld) [#/Vol] <0.01 k/uL [facility] Platelet mean volume (Bld) [Entitic vol] 9.0 fL 9.0 - 12.7 fL [facility] Platelets (Bld) [#/Vol] 244 10*3/uL 150 - 400 k/uL [facility] RBC (Bld) [#/Vol] 4.27 10*6/uL 3.90 - 5.20 m/uL [facility] WBC (Bld) [#/Vol] 8.68 10*3/uL 3.70 - 11.00 k/uL [facility] XR KNEE LIMITED 2V AP/LAT RT on 04-10-2022 [facility] SPIROMETRY BASELINE ONLYon 0 03-06-2022 FMX02-30% PRE (L/S) 0.24 L/S [facility] FEV1 PRE (L) 1.03 L [facility] FEV1/FVC PRE (%) 0.45 % [facility] FVC PRE (L) 2.27 L [facility] PEF PRE (L/S) 2.48 L/S [facility] CBC panel Auto (Bld)on 01-02 Erythrocyte distribution width (RBC) [Ratio] 12.1 % 11.5 - 15.0 % [facility] Hematocrit (Bld) [Volume fraction] 41.6 % 36.0 - 46.0 % [facility] Hemoglobin (Bld) [Mass/Vol] 14.0 g/dL 11.5 - 15.5 g/dL [facility] MCH (RBC) [Entitic mass] 33.0 pg 26.0 - 34.0 pg [facility] MCHC (RBC) [Mass/Vol] 33.7 g/dL 30.5 - 36.0 g/dL [facility] MCV (RBC) [Entitic vol] 98.1 fL 80.0 - 100.0 fL [facility] Nucleated RBC (Bld) [#/Vol] 10*3/uL <0.01 k/uL [facility] Platelet mean volume (Bld) [Entitic vol] 9.2 fL 9.0 - 12.7 fL [facility] Platelets (Bld) [#/Vol] 221 10*3/uL 150 - 400 k/uL [facility] RBC (Bld) [#/Vol] 4.24 10*6/uL 3.90 - 5.20 m/uL [facility] WBC (Bld) [#/Vol] 7.94 10*3/uL 3.70 - 11.00 k/uL [facility] No Panel Informationon 07-28 IMPRESSION: No acute bony abnormality is seen. Degenerative changes throughout, as described above. Database Administration Project Manager: PSCB Transcribe Date/Time: Jul 28 2021 11:14A Dictated by : ADRIANNA GUTIERREZ MD This examination was interpreted and the report reviewed and electronically signed by: ADRIANNA GUTIERREZ MD on Jul 28 2021 11:19AM [facility] DIVISION OF RADIOLOGY Radiology Study observation (narrative) [facility] No Panel InformationOrdered By: [facility]cf Provider on 07-28-2021 [facility] XR Knee - left 4 Viewson * * *Final Report* * * DATE OF EXAM: Jul 28 2021 11:12AM WOX 5202 - XR KNEE 4V AP/PA BOTH+LAT/PAMELA LT / PROCEDURE REASON: Fall, initial encounter * * * * Physician Interpretation * * * * History: Fall FINDINGS: Left hip AP view of the pelvis and AP and lateral views of the left hip have been obtained. The bones are demineralized. No acute fracture is seen. Mild narrowing of superior hip joints without destructive process. Left knee: 4 views of the left knee have been obtained. There is narrowing of the femoral-tibial joint space more pronounced medially with mild marginal spurring and chondrocalcinosis. There is more advanced narrowing of femoral patellar joint space with chib-md-wjva narrowing, sclerosis, and osteophyte formation. No acute bony process is seen. Small suprapatellar effusion noted. Included images of the right knee demonstrate mild narrowing of the medial femoral tibial joint space and chondrocalcinosis in the lateral femoral tibial joint space. Similar pyqv-ck-jvfz narrowing of the femoral patellar joint space with sclerosis and osteophyte formation. Lumbar spine: AP, lateral, and coned-down lateral views of the lumbar spine have been obtained. AP view demonstrates the bones scoliosis the apex at L1. There are multilevel degenerative changes with joint space narrowing and osteophyte formation. There is slight retrolisthesis of L1 on L2, L2 on L3, and L3 on L4. There is loss of height of the superior endplate of L3, in the inferior endplate of L1. There is loss of height of T12. Facet joint arthropathy is most pronounced at the lower 2 lumbar levels. No definite acute process is seen. DIVISION OF RADIOLOGY Provider, [facility] - 07/28/2021 * * *Final Report* * * DATE OF EXAM: Jul 28 2021 11:12AM WOX 5202 - XR KNEE 4V AP/PA BOTH+LAT/PAMELA LT / PROCEDURE REASON: Fall, initial encounter * * * * Physician Interpretation * * * * History: Fall FINDINGS: Left hip AP view of the pelvis and AP and lateral views of the left hip have been obtained. The bones are demineralized. No acute fracture is seen. Mild narrowing of superior hip joints without destructive process. Left knee: 4 views of the left knee have been obtained. There is narrowing of the femoral-tibial joint space more pronounced medially with mild marginal spurring and chondrocalcinosis. There is more advanced narrowing of femoral patellar joint space with mqwk-gd-wssh narrowing, sclerosis, and osteophyte formation. No acute bony process is seen. Small suprapatellar effusion noted. Included images of the right knee demonstrate mild narrowing of the medial femoral tibial joint space and chondrocalcinosis in the lateral femoral tibial joint space. Similar zcou-ty-mzkv narrowing of the femoral patellar joint space with sclerosis and osteophyte formation. Lumbar spine: AP, lateral, and coned-down lateral views of the lumbar spine have been obtained. AP view demonstrates the bones scoliosis the apex at L1. There are multilevel degenerative changes with joint space narrowing and osteophyte formation. There is slight retrolisthesis of L1 on L2, L2 on L3, and L3 on L4. There is loss of height of the superior endplate of L3, in the inferior endplate of L1. There is loss of height of T12. Facet joint arthropathy is most pronounced at the lower 2 lumbar levels. No definite acute process is seen. IMPRESSION IMPRESSION: No acute bony abnormality is seen. Degenerative changes throughout, as described above. Database Administration Project Manager: PSCB Transcribe Date/Time: Jul 28 2021 11:14A Dictated by : ADRIANNA GUTIERREZ MD This examination was interpreted and the report reviewed and electronically signed by: ADRIANNA GUTIERREZ MD on Jul 28 2021 11:19AM EST [facility] XR Lumbar spine 3 Viewson * * *Final Report* * * DATE OF EXAM: Jul 28 2021 11:12AM WOX 5228 - XR LUMBAR 3V AP/LAT/L5-S1 / PROCEDURE REASON: Fall, initial encounter * * * * Physician Interpretation * * * * History: Fall FINDINGS: Left hip AP view of the pelvis and AP and lateral views of the left hip have been obtained. The bones are demineralized. No acute fracture is seen. Mild narrowing of superior hip joints without destructive process. Left knee: 4 views of the left knee have been obtained. There is narrowing of the femoral-tibial joint space more pronounced medially with mild marginal spurring and chondrocalcinosis. There is more advanced narrowing of femoral patellar joint space with bmed-ve-zgcm narrowing, sclerosis, and osteophyte formation. No acute bony process is seen. Small suprapatellar effusion noted. Included images of the right knee demonstrate mild narrowing of the medial femoral tibial joint space and chondrocalcinosis in the lateral femoral tibial joint space. Similar zfvx-tz-nsaq narrowing of the femoral patellar joint space with sclerosis and osteophyte formation. Lumbar spine: AP, lateral, and coned-down lateral views of the lumbar spine have been obtained. AP view demonstrates the bones scoliosis the apex at L1. There are multilevel degenerative changes with joint space narrowing and osteophyte formation. There is slight retrolisthesis of L1 on L2, L2 on L3, and L3 on L4. There is loss of height of the superior endplate of L3, in the inferior endplate of L1. There is loss of height of T12. Facet joint arthropathy is most pronounced at the lower 2 lumbar levels. No definite acute process is seen. DIVISION OF RADIOLOGY Provider, [facility] - 07/28/2021 * * *Final Report* * * DATE OF EXAM: Jul 28 2021 11:12AM WOX 5228 - XR LUMBAR 3V AP/LAT/L5-S1 / PROCEDURE REASON: Fall, initial encounter * * * * Physician Interpretation * * * * History: Fall FINDINGS: Left hip AP view of the pelvis and AP and lateral views of the left hip have been obtained. The bones are demineralized. No acute fracture is seen. Mild narrowing of superior hip joints without destructive process. Left knee: 4 views of the left knee have been obtained. There is narrowing of the femoral-tibial joint space more pronounced medially with mild marginal spurring and chondrocalcinosis. There is more advanced narrowing of femoral patellar joint space with ysyh-or-wesi narrowing, sclerosis, and osteophyte formation. No acute bony process is seen. Small suprapatellar effusion noted. Included images of the right knee demonstrate mild narrowing of the medial femoral tibial joint space and chondrocalcinosis in the lateral femoral tibial joint space. Similar prao-yf-sccy narrowing of the femoral patellar joint space with sclerosis and osteophyte formation. Lumbar spine: AP, lateral, and coned-down lateral views of the lumbar spine have been obtained. AP view demonstrates the bones scoliosis the apex at L1. There are multilevel degenerative changes with joint space narrowing and osteophyte formation. There is slight retrolisthesis of L1 on L2, L2 on L3, and L3 on L4. There is loss of height of the superior endplate of L3, in the inferior endplate of L1. There is loss of height of T12. Facet joint arthropathy is most pronounced at the lower 2 lumbar levels. No definite acute process is seen. IMPRESSION IMPRESSION: No acute bony abnormality is seen. Degenerative changes throughout, as described above. Database Administration Project Manager: ANAID Transcribe Date/Time: Jul 28 2021 11:14A Dictated by : ADRIANNA GUTIERREZ MD This examination was interpreted and the report reviewed and electronically signed by: ADRIANNA GUTIERREZ MD on Jul 28 2021 11:19AM EST [facility] XR Pelvis and Hip - left AP and Lateral frogon 07-28-2021 * * *Final Report* * * DATE OF EXAM: Jul 28 2021 11:12AM WOX 5351 - XR HIP 3V PELV+ AP/LAT LT / PROCEDURE REASON: Fall, initial encounter * * * * Physician Interpretation * * * * History: Fall FINDINGS: Left hip AP view of the pelvis and AP and lateral views of the left hip have been obtained. The bones are demineralized. No acute fracture is seen. Mild narrowing of superior hip joints without destructive process. Left knee: 4 views of the left knee have been obtained. There is narrowing of the femoral-tibial joint space more pronounced medially with mild marginal spurring and chondrocalcinosis. There is more advanced narrowing of femoral patellar joint space with xzpj-ls-ywvg narrowing, sclerosis, and osteophyte formation. No acute bony process is seen. Small suprapatellar effusion noted. Included images of the right knee demonstrate mild narrowing of the medial femoral tibial joint space and chondrocalcinosis in the lateral femoral tibial joint space. Similar elxx-yb-qkha narrowing of the femoral patellar joint space with sclerosis and osteophyte formation. Lumbar spine: AP, lateral, and coned-down lateral views of the lumbar spine have been obtained. AP view demonstrates the bones scoliosis the apex at L1. There are multilevel degenerative changes with joint space narrowing and osteophyte formation. There is slight retrolisthesis of L1 on L2, L2 on L3, and L3 on L4. There is loss of height of the superior endplate of L3, in the inferior endplate of L1. There is loss of height of T12. Facet joint arthropathy is most pronounced at the lower 2 lumbar levels. No definite acute process is seen. DIVISION OF RADIOLOGY Provider, [facility] - 07/28/2021 * * *Final Report* * * DATE OF EXAM: Jul 28 2021 11:12AM WOX 5351 - XR HIP 3V PELV+ AP/LAT LT / PROCEDURE REASON: Fall, initial encounter * * * * Physician Interpretation * * * * History: Fall FINDINGS: Left hip AP view of the pelvis and AP and lateral views of the left hip have been obtained. The bones are demineralized. No acute fracture is seen. Mild narrowing of superior hip joints without destructive process. Left knee: 4 views of the left knee have been obtained. There is narrowing of the femoral-tibial joint space more pronounced medially with mild marginal spurring and chondrocalcinosis. There is more advanced narrowing of femoral patellar joint space with uvkg-vf-zwqz narrowing, sclerosis, and osteophyte formation. No acute bony process is seen. Small suprapatellar effusion noted. Included images of the right knee demonstrate mild narrowing of the medial femoral tibial joint space and chondrocalcinosis in the lateral femoral tibial joint space. Similar ndum-qc-ftji narrowing of the femoral patellar joint space with sclerosis and osteophyte formation. Lumbar spine: AP, lateral, and coned-down lateral views of the lumbar spine have been obtained. AP view demonstrates the bones scoliosis the apex at L1. There are multilevel degenerative changes with joint space narrowing and osteophyte formation. There is slight retrolisthesis of L1 on L2, L2 on L3, and L3 on L4. There is loss of height of the superior endplate of L3, in the inferior endplate of L1. There is loss of height of T12. Facet joint arthropathy is most pronounced at the lower 2 lumbar levels. No definite acute process is seen. IMPRESSION IMPRESSION: No acute bony abnormality is seen. Degenerative changes throughout, as described above. Database Administration Project Manager: ANAID Transcribe Date/Time: Jul 28 2021 11:14A Dictated by : ADRIANNA GUTIERREZ MD This examination was interpreted and the report reviewed and electronically signed by: ADRIANNA GUTIERREZ MD on Jul 28 2021 11:19AM EST [facility] XR Knee - left 4 Viewson IMPRESSION: Osteoarthritis as described. Database Administration Project Manager: ANAID Transcribe Date/Time: Apr 30 2021 4:22P Dictated by : TIM HINTON MD This examination was interpreted and the report reviewed and electronically signed by: TIM HINTON MD on Apr 30 2021 4:24PM [facility] DIVISION OF RADIOLOGY * * *Final Report* * * DATE OF EXAM: Apr 30 2021 4:05PM WOX 5202 - XR KNEE 4V AP/PA BOTH+LAT/PAMELA LT / PROCEDURE REASON: Acute pain of left knee * * * * Physician Interpretation * * * * CLINICAL INDICATION: Knee pain TECHNIQUE: AP/PA/merchant radiographs of both knees and lateral radiograph of the left knee COMPARISON: Radiograph dated November 08, 2020 FINDINGS: Left knee: Trace fluid in the left suprapatellar joint space with associated demineralization. Calcified loose bodies again noted posteriorly and medially measuring up to 1.6 cm in size. Moderate medial compartmental joint space narrowing. Severe patellofemoral compartmental joint space narrowing with subchondral sclerosis. Small patellofemoral and lateral compartmental osteophyte production. Atherosclerotic calcification of the vasculature. Right knee: No fracture or dislocation. Moderate medial compartmental joint space narrowing. Severe patellofemoral compartmental joint space narrowing with subchondral sclerosis. Patellofemoral and lateral compartmental osteophyte production. Subcentimeter medial calcified loose bodies. DIVISION OF RADIOLOGY [facility] * * *Final Report* * * DATE OF EXAM: Apr 30 2021 4:05PM WOX 5202 - XR KNEE 4V AP/PA BOTH+LAT/PAMELA LT / PROCEDURE REASON: Acute pain of left knee * * * * Physician Interpretation * * * * CLINICAL INDICATION: Knee pain TECHNIQUE: AP/PA/merchant radiographs of both knees and lateral radiograph of the left knee COMPARISON: Radiograph dated November 08, 2020 FINDINGS: Left knee: Trace fluid in the left suprapatellar joint space with associated demineralization. Calcified loose bodies again noted posteriorly and medially measuring up to 1.6 cm in size. Moderate medial compartmental joint space narrowing. Severe patellofemoral compartmental joint space narrowing with subchondral sclerosis. Small patellofemoral and lateral compartmental osteophyte production. Atherosclerotic calcification of the vasculature. Right knee: No fracture or dislocation. Moderate medial compartmental joint space narrowing. Severe patellofemoral compartmental joint space narrowing with subchondral sclerosis. Patellofemoral and lateral compartmental osteophyte production. Subcentimeter medial calcified loose bodies. IMPRESSION IMPRESSION: Osteoarthritis as described. Database Administration Project Manager: PSCB Transcribe Date/Time: Apr 30 2021 4:22P Dictated by : TIM HINTON MD This examination was interpreted and the report reviewed and electronically signed by: TIM HINTON MD on Apr 30 2021 4:24PM EST [facility] Radiology Study observation (narrative) [facility] XR Knee - left 4 ViewsOrdere d By: [facility] Provider on 04-30-2021 [facility] 6-ACETYLMORPHINon 11-18-2018 6-ROSA TOXASSURE Negative Normal () [facility] Comment on above: Performed By: #### L 600.71936, L600.28892 #### [facility] [address] [place] [address] # [phone] CONFIRMATION 6M Not Detected Normal () [facility] Comment on above: Result Comment: INFC E Result Units: ng/mg creat Testing Threshold: 10 ng/mL This test was developed and its performance characteristics determined by [facility]. It has not been cleared or approved by the Food and Drug Administration. Performed At: [facility] [address] [place] [address] [id number] [facility] [id number] Performed By: #### L 600.66556, L600.25508 #### [facility] [address] [place] [address] TOXASSURE COMPRon 11-18-2018 TOXASSURE COMPR FINAL Normal () [facility] Comment on above: Result Comment: ==== TOXASSURE COMP DRUG ANALYSIS,UR 6-Acetylmorphine,[facility]oxAss[facility] Add CREATININE,URINE ==== Specimen Alert Note: Urinary creatinine is low; ability to detect some drugs may be compromised. Interpret results with caution. ==== Test Result Flag Units Drug Present Zolpidem PRESENT Zolpidem Acid PRESENT Zolpidem acid is an expected metabolite of zolpidem. Acetaminophen PRESENT Naproxen PRESENT ==== Test Result Flag Units Ref Range Creatinine 16 L mg/dL >=20 ==== Declared Medications: Medication list was not provided. ==== For clinical consultation, please call . ==== Performed By: #### L 600.71047, L600.47659 #### [address] [address] # [phone] OBSOLETEon 10-14-2017 OBSOLETE Refill (AGCARDWST) ----NANO AGUILAR ([id number]) 1940 FDate Time Provider Department10/14/17 JEF MERCEDES AGCARDWST During your visit today, we recorded the following information about you:Jef Mercedes MD 10/14/2017 9:46 AM SignedNote change in tablet sizeJef Mercedes MDThe following approved medication requests have been transmitted electronically.Signed Prescriptions Disp Refills carvedilol (COREG) 25 mg tablet 360 tablet 3 Sig: TAKE 2 TABLETS IN THE MORNING 2 TABLETS IN THE EVENING VAHID: No Authorizing Provider: JEF MERCEDES amLODIPine (NORVASC) 5 mg tablet 90 tablet 3 Sig: Take 1 tablet by mouth once daily. VAHID: No Authorizing Provider: JEF MERCEDES isosorbide mononitrate ER (IMDUR) 60 mg 24 hr tablet 90 tablet 3 Sig: Take 1 tablet by mouth once daily. Authorizing Provider: JEF MERCEDES MDAdam Gilmor, RN, RN 10/14/2017 11:24 AM SignedPatient verbalizes understanding .Allergies As of Date: 10/14/2017 Noted Allergy ReactionALTACE (RAMIPRIL) 12/06/2012 14 - Other: See Comments Comments: CoughBACTRIM (SULFAMETHOXAZOLE-TRIMETH* 8 - GI Upset Comments: Pt having GI upset and stomach painLATEX 04/17/2009 9 - Itching Comments: BlistersRELAFEN (NABUMETONE) 06/09/2005 8 - GI Upsetbandaids [Other] 01/12/2006 2 - Rash 9 - Itching Comments: blistersDate Reviewed: 09/14/2017Reviewed by: Seferino RiosRn) GEORGE Ibrahim - Fully AssessedReason for Visit: Refill Request [94]Order(s):carvedilol (COREG) 25 mg tabletTAKE 2 TABLETS IN THE MORNING 2 TABLETS IN THE EVENINGDisp: 360 tabletRfl: 3 amLODIPine (NORVASC) 5 mg tabletTake 1 tablet by mouth once daily.Disp: 90 tabletRfl: 3 isosorbide mononitrate ER (IMDUR) 60 mg 24 hr tabletTake 1 tablet by mouth once daily.Disp: 90 tabletRfl: 3Prescriptions as of 10/14/2017 Sig: CARVEDILOL 25 MG TABLET TAKE 2 TABLETS IN THE MORNING* AMLODIPINE 5 MG TABLET Take 1 tablet by mouth once d* ISOSORBIDE MONONITRATE ER 60 * Take 1 tablet by mouth once d* IBANDRONATE 150 MG TABLET Take 1 tablet by mouth once e* TIOTROPIUM BROMIDE 18 MCG CAP* INHALE 1 CAPSULE INSTRUCTE* NITROGLYCERIN 0.4 MG SUBLINGU* Dissolve 1 tablet under the t* LOSARTAN 100 MG TABLET TAKE 1 TABLET DAILY ATORVASTATIN 40 MG TABLET Take 1 tablet by mouth once d* OMEPRAZOLE 20 MG CAPSULE,SANG* TAKE 1 CAPSULE BY MOUTH ONCE * LORATADINE 10 MG TABLET TAKE 1 TABLET BY MOUTH EVERY * IPRATROPIUM 20 MCG-ALBUTEROL * Inhale 1 Inhalation as instru* BUDESONIDE-FORMOTEROL HFA 160* Inhale 2 Puffs as instructed * DESOXIMETASONE 0.25 % TOPICAL* Apply 1 application to affect* MONTELUKAST 10 MG TABLET TAKE 1 TABLET BY MOUTH ONCE D* ALBUTEROL SULFATE 2.5 MG/3 ML* Use 3 mL via nebulizer every * CALTRATE 600 ORAL Take 2 tablets by mouth once * HYDROCODONE 5 MG-ACETAMINOPHE* Take 1 tablet by mouth once d* MULTIPLE VITAMIN, WOMENS ORAL Take 1 capsule by mouth once * ZOLPIDEM 10 MG TABLET Take by mouth every 4 hours * * CHOLECALCIFEROL (VITAMIN D3) * Take 1 tablet by mouth once d* * AZELASTINE 137 MCG (0.1 %) NA* Take 2 puffs per nostril twic* * ECOTRIN LOW STRENGTH 81 MG TA* Take one(1) tablet daily. * VITAMIN C 500 MG TABLET Take one(1) tablet daily. * KUDLP4-IJX-DXP-FISH OIL-COQ10* Take one(1) tablet daily.Problem List As Of Date 10/14/2017 Noted Resolved Extrinsic asthma [J45.909] INVALID FOR* Generalized osteoarthritis [M15.9] INVALID FOR* Osteoporotic compression fracture of spine with*INVALID FOR* Allergic rhinitis [J30.9] INVALID FOR* ESOPHAGEAL REFLUX [K21.9] INVALID FOR* Non-ischemic cardiomyopathy (HCC) [I42.8] INVALID FOR* More... Other hyperlipidemia [E78.4] INVALID FOR* More... More... BRONCHIECTASIS W/O ACUTE EXACERBATN [J47.9] INVALID FOR* BENIGN NEOPLASM LG BOWEL [D12.6] INVALID FOR* More... Personal History of Colonic Polyps [Z86.010] INVALID FOR*06/20/2010 Essential hypertension [I10] INVALID FOR* Screening for malignant neoplasm of the cervix *INVALID FOR*01/05/2012 Osteoarthritis, knee [M17.10] INVALID FOR*01/05/2012 Postmenopausal Atrophic Vaginitis [N95.2] INVALID FOR* Female stress incontinence [N39.3] INVALID FOR*03/06/2015 Arthritis of knee, degenerative [M17.10] INVALID FOR* Uterine prolapse without mention of vaginal wal*INVALID FOR*03/06/2015 Degeneration of intervertebral disc [[id number]] 03/06/2015 Personal history of renal artery stenosis [Z86.*INVALID FOR*03/06/2015 Ganglion cyst [M67.40] INVALID FOR*05/17/2013 Occipital neuralgia [M54.81] INVALID FOR*01/05/2017 More... Lumbago [M54.5] INVALID FOR* More... Insomnia [G47.00] INVALID FOR* Emphysema of lung (HCC) [J43.9] INVALID FOR* LBBB (left bundle branch block) [I44.7] INVALID FOR* Thoracic or lumbosacral neuritis or radiculitis*INVALID FOR*01/05/2017 Special screening for malignant neoplasms, colo*INVALID FOR*05/02/2015 Atherosclerosis of benton coronary artery of na*INVALID FOR* More... Bilateral carotid artery disease (HCC) [I77.9] INVALID FOR*Prescriptions ordered this encounter Disp Refills Start End CARVEDILOL 25 MG TABLET 360 * 3 10/14/2017 Sig: TAKE 2 TABLETS IN THE MORNING 2 TABLETS IN THE EVENING AMLODIPINE 5 MG TABLET 90 t* 3 10/14/2017 Route: ORAL Sig: Take 1 tablet by mouth once daily. ISOSORBIDE MONONITRATE ER 60 MG TABL* 90 t* 3 10/14/2017 Route: ORAL Sig: Take 1 tablet by mouth once daily.Medications Discontinued During This Encounter carvedilol (COREG) 25 mg tablet 360 * 3 10/19/2016 10/14/2017 Sig: TAKE 2 TABLETS IN THE MORNING 2 TABLETS IN THE EVENING Disc: Reason for discontinue is not on file. amLODIPine (NORVASC) 2.5 mg tablet 180 * 3 10/19/2016 10/14/2017 Sig: TAKE 2 TABLETS ONCE DAILY Disc: Reason for discontinue is not on file. isosorbide mononitrate ER (IMDUR) 30* 180 * 3 11/03/2016 10/14/2017 Route: ORAL Sig: Take 2 tablets by mouth once daily. Disc: Reason for discontinue is not on file. Status:Closed by SEFERINO IBRAHIM on 10/14/17 [facility] [place] 09-14-2017 CNOV Office Visit (AGCARDWST) ----NANO AGUILAR ([id number]) 1940 [facility] Wzzgpsmohr07/12/17 2:00 PM JEF MERCEDESWSLester During your visit today, we recorded the following information about you: Pulse Blood pressure Weight Height 60/minute 140/80 69.9 kg 1.651 Patience Mercedes MD 09/14/2017 2:39 PM SignedPERTINENT CARDIAC HISTORYCardiomyopathy - nonischemicASHD - moderate 2 vessel cath 2015HTNHLRenovascular HTN - left renal stent 2009LBBBADHERENCE TO GUIDELINESACE-I or ARB for HF with prior LVEFANDlt;40 (NQF 0081) - metASA or Plavix for ASHD (NQF 0067) - metBeta taras for ASHD with prior MA or prior LVEFANDlt;40 (NQF 0070) - metBeta taras for HF with prior LVEFANDlt;40 (NQF 0083) - metACE-I or ARB for ASHD with DM or prior LVEFANDlt;40 (NQF 0066) - metStatin therapy for ASHD or FHL or DM - metBMI documented and plan if ANDgt;25 (NQF 0421) - lifestyle recommendation formTobacco use screening and referral (NQF 0028) - lifestyle recommendation formRecommendation for whole food, plant based diet - lifestyle recommendation formCLINICAL IMPRESSION/PLAN:Nano Aguilar is clinically stable. Her cardiomyopathy is well compensated.Most recent LV function had returned to normal.She's been advised to continue her current medication. We'll check basicprofile to assess hyponatremiaShe reports that blood pressures have been in the 130 systolic range at home.She was advised to watch these .I will see her in 8 months or as needed.Written and verbal health teaching given to patient, patient verbalizesunderstanding and agrees with treatment plan.This note was generated using ThetaRay voice recognition system, and there may besome incorrect words, spellings, and punctuation that were not noted inchecking the note before saving.DIAGNOSIS FOR VISIT:CardiomyopathyASHDHISTO RY OF PRESENT ILLNESSNano Aguilar returns for follow-up of her nonischemic cardiomyopathy andmoderate coronary disease.She has had less anxiety in her life recently. She has had no recent chestdiscomfort. Her exercise tolerance has improved.She denies edema, syncope, palpitations, TIAs, amaurosis and claudication. Sherarely required nitroglycerin.ALLERGIES:ALLER GIESAllergen Reactions- Altace [Ramipril] Other: See Comments Cough- Bactrim [Sulfametho* GI Upset Pt having GI upset and stomach pain- Latex Itching Blisters- Relafen [Nabumetone] GI Upset- Bandaids [Other] Rash, Itching blistersCURRENT OUTPATIENT MEDICATIONS:Ibandronate (BONIVA) 150 mg tablet Take 1 tablet by mouth once every month.Take as directed.tiotropium (SPIRIVA WITH HANDIHALER) 18 mcg inhalation capsule INHALE 1 CAPSULEAS INSTRUCTED ONCE DAILY.nitroglycerin sublingual (NITROSTAT) 0.4 mg SL tablet Dissolve 1 tablet underthe tongue. DISSOLVE ONE(1) TABLET UNDER THE TOUNGUE NEEDED FOR CHESTPAIN,EVERY 5 MIN M6raworfck (COZAAR) 100 mg tablet TAKE 1 TABLET DAILYatorvastatin (LIPITOR) 40 mg tablet Take 1 tablet by mouth once daily.omeprazole (PRILOSEC) 20 mg capsule TAKE 1 CAPSULE BY MOUTH ONCE DAILY.loratadine (CLARITIN) 10 mg tablet TAKE 1 TABLET BY MOUTH EVERY DAY NEEDEDFOR ALLERGIESipratropium-albutero l (COMBIVENT RESPIMAT) 20-100 mcg/actuation mist Inhale 1Inhalation as instructed four times daily.budesonide-formoterol (SYMBICORT) 160-4.5 mcg/actuation inhaler Inhale 2 Puffsas instructed twice daily.desoximetasone (TOPICORT) 0.25 % cream Apply 1 application to affected areaonce daily as needed (Apply sparingly to neck, face. Avoid eyes and mouth.).montelukast (SINGULAIR) 10 mg tablet TAKE 1 TABLET BY MOUTH ONCE DAILY.isosorbide mononitrate ER (IMDUR) 30 mg 24 hr tablet Take 2 tablets by mouthonce daily.carvedilol (COREG) 25 mg tablet TAKE 2 TABLETS IN THE MORNING 2 TABLETS IN THEEVENINGamLODIPine (NORVASC) 2.5 mg tablet TAKE 2 TABLETS ONCE DAILYalbuterol (PROVENTIL) 2.5 mg /3 mL (0.083 %) nebulizer solution Use 3 mL vianebulizer every 4 hours as needed for Wheezing/Shortness of Breath. DX: ICD9:493.00, ICD10: J45.909CALCIUM CARBONATE (CALTRATE 600 ORAL) Take 2 tablets by mouth once daily.HYDROcodone-acetaminoph en (NORCO) 5-325 mg per tablet Take 1 tablet by mouthonce daily. PRNMULTIVIT WITH CALCIUM,IRON,MIN (MULTIPLE VITAMIN, WOMENS ORAL) Take 1 capsuleby mouth once daily.zolpidem (AMBIEN) 10 mg tab Take by mouth every 4 hours as needed. 1/2 - 1pillcholecalciferol, Vitamin D3, 400 unit Tab Take 1 tablet by mouth once daily.azelastine (ASTELIN) 137 mcg NASAL nasal spray Take 2 puffs per nostril twicedaily.aspirin(ECOTRIN LOW STRENGTH 81 MG TAB) Take one(1) tablet daily.ascorbic acid(VITAMIN C 500 MG TAB) Take one(1) tablet daily.FISH AOX-RMEIT-5-COENZYME Q10 1,900 MG-640 MG-50 MG/2.5 G ORAL PACKET Takeone(1) tablet daily.PHYSICAL EXAMINATION:VITAL SIGNS: BP 140/80 Pulse 60 Ht 5' 5ANDquot; (1.65m) Wt 154 lb 1.6 oz(69.9kg) BMI 25.64 kg/(m2).Chest: Clear to percussion and auscultation. Trachea is midline. Air entry isequal. Cardiac: Regular rhythm. S1 and S2 are normal. PMI is nondisplaced.There is a soft systolic ejection murmur. Carotids are brisk without bruits.JVP is less than 10 cm. Abdomen: Soft and nontender. There are no pulsatilemasses or bruits. No liver enlargement. Bowel sounds are active.Extremities: Trace edema. Pulses are intact and symmetrical.EKG shows sinus rhythm with left bundle branch block. There is no significantchange.Recent labs were reviewed. Renal function is normal. Sodium is borderline low.LDL was 40.Electronically Signed:REUBEN Saabeceyessenia 2016 2:22 [facility]: Mauricio Townsend MD 09/14/2017 2:24 PM SignedLIFESTYLE CHANGEA healthy lifestyle is the most important component of your overall treatmentplan. Please give serious thought to the following areas and commit to makinglong term changes.EAT A WHOLE FOOD, PLANT BASED DIETThe nutrition your body gets is more important than the medicine you take.What matters most is the overall way you eat. We encourage you to minimize theuse of animal products (which include dairy and all meats except fatty fish)and use whole, unprocessed plant foods to provide your protein, vitamins andother nutrients. We have a lot of information to share with you on this topic. We also hold Shared Medical Appointments, where you can come visit with in the company of other patients and spend over an hour talking aboutthe challenges of changing the way you eat. This is not a ANDquot;dietANDquot;.It is a way of life that you will keep with you.EXERCISE REGULARLYIt is not important to spend hours in the gym, lifting weights and perspiringheavily. A total of 2-3 hours per week of aerobic (causing you to bemoderately short of breath) exercise is sufficient to improve your health.Talk to us before you begin a new exercise program, if you have heart diseaseor experience shortness of breath or chest pain.REDUCE STRESSChronic emotional and physical stress leads to disease. Ways of reducingstress include meditation, visualization, prayer, yoga and other forms ofrelaxation therapy. Consistency is the coy. Find a technique that works foryou and do it every day.CULTIVATE RELATIONSHIPSLoneliness and isolation have a major negative impact on health. Seek outothers who can love, care for and nurture you. Avoid hurtful relationships.MAINTAIN IDEAL BODY WEIGHTThe best way to do this is to do all the things above. Our bodies naturallyfind the right weight if we keep moving and feed ourselves the right food. Ifyour BMI is greater than 25, we strongly recommend a referral to a weightmanagement program. Please speak to us or your family physician aboutavailable programs.AVOID NICOTINE IN ALL FORMSThis includes all tobacco products, whether chewed, smoked, vaped, or rubbed onthe skin. Smoking cessation programs, which can make use of tobaccosubstitutes, medications to suppress cravings and behavior management, areavailable. Please contact your family physician about programs in your area.Referring Provider: ALBERTO HERR [[id number]]Allergies As of Date: 09/14/2017 Noted Allergy ReactionALTACE (RAMIPRIL) 12/06/2012 14 - Other: See Comments Comments: CoughBACTRIM (SULFAMETHOXAZOLE-TRIMETH* 8 - GI Upset Comments: Pt having GI upset and stomach painLATEX 04/17/2009 9 - Itching Comments: BlistersRELAFEN (NABUMETONE) 06/09/2005 8 - GI Upsetbandaids [Other] 01/12/2006 2 - Rash 9 - Itching Comments: blistersDate Reviewed: 09/14/2017Reviewed by: Seferino Heredia) GEORGE Ibrahim - Fully AssessedReason for Visit: Follow Up [171] Cmt: 6 monthPrimary Visit Diagnosis:Cardiomyopathy, ischemic [I25.5] Other Visit Diagnoses:ASHD (arteriosclerotic heart disease) [I25.10] Hypertension, essential [I10]Order(s):BASIC METABOLIC PNL [SQBMP] Order #: [id number] FUTUREPrescriptions as of 09/14/2017 Sig: IBANDRONATE 150 MG TABLET Take 1 tablet by mouth once e* TIOTROPIUM BROMIDE 18 MCG CAP* INHALE 1 CAPSULE INSTRUCTE* NITROGLYCERIN 0.4 MG SUBLINGU* Dissolve 1 tablet under the t* LOSARTAN 100 MG TABLET TAKE 1 TABLET DAILY ATORVASTATIN 40 MG TABLET Take 1 tablet by mouth once d* OMEPRAZOLE 20 MG CAPSULE,SANG* TAKE 1 CAPSULE BY MOUTH ONCE * LORATADINE 10 MG TABLET TAKE 1 TABLET BY MOUTH EVERY * IPRATROPIUM 20 MCG-ALBUTEROL * Inhale 1 Inhalation as instru* BUDESONIDE-FORMOTEROL HFA 160* Inhale 2 Puffs as instructed * DESOXIMETASONE 0.25 % TOPICAL* Apply 1 application to affect* MONTELUKAST 10 MG TABLET TAKE 1 TABLET BY MOUTH ONCE D* ISOSORBIDE MONONITRATE ER 30 * Take 2 tablets by mouth once * CARVEDILOL 25 MG TABLET TAKE 2 TABLETS IN THE MORNING* AMLODIPINE 2.5 MG TABLET TAKE 2 TABLETS ONCE DAILY ALBUTEROL SULFATE 2.5 MG/3 ML* Use 3 mL via nebulizer every * CALTRATE 600 ORAL Take 2 tablets by mouth once * HYDROCODONE 5 MG-ACETAMINOPHE* Take 1 tablet by mouth once d* MULTIPLE VITAMIN, WOMENS ORAL Take 1 capsule by mouth once * ZOLPIDEM 10 MG TABLET Take by mouth every 4 hours * * CHOLECALCIFEROL (VITAMIN D3) * Take 1 tablet by mouth once d* * AZELASTINE 137 MCG (0.1 %) NA* Take 2 puffs per nostril twic* * ECOTRIN LOW STRENGTH 81 MG TA* Take one(1) tablet daily. * VITAMIN C 500 MG TABLET Take one(1) tablet daily. * CYBDH1-DEW-QJH-FISH OIL-COQ10* Take one(1) tablet daily.Problem List As Of Date 09/14/2017 Noted Resolved Extrinsic asthma [J45.909] INVALID FOR* Generalized osteoarthritis [M15.9] INVALID FOR* Osteoporotic compression fracture of spine with*INVALID FOR* Allergic rhinitis [J30.9] INVALID FOR* ESOPHAGEAL REFLUX [K21.9] INVALID FOR* Non-ischemic cardiomyopathy (HCC) [I42.8] INVALID FOR* More... Other hyperlipidemia [E78.4] INVALID FOR* More... More... BRONCHIECTASIS W/O ACUTE EXACERBATN [J47.9] INVALID FOR* BENIGN NEOPLASM LG BOWEL [D12.6] INVALID FOR* More... Personal History of Colonic Polyps [Z86.010] INVALID FOR*06/20/2010 Essential hypertension [I10] INVALID FOR* Screening for malignant neoplasm of the cervix *INVALID FOR*01/05/2012 Osteoarthritis, knee [M17.10] INVALID FOR*01/05/2012 Postmenopausal Atrophic Vaginitis [N95.2] INVALID FOR* Female stress incontinence [N39.3] INVALID FOR*03/06/2015 Arthritis of knee, degenerative [M17.10] INVALID FOR* Uterine prolapse without mention of vaginal wal*INVALID FOR*03/06/2015 Degeneration of intervertebral disc [[id number]] 03/06/2015 Personal history of renal artery stenosis [Z86.*INVALID FOR*03/06/2015 Ganglion cyst [M67.40] INVALID FOR*05/17/2013 Occipital neuralgia [M54.81] INVALID FOR*01/05/2017 More... Lumbago [M54.5] INVALID FOR* More... Insomnia [G47.00] INVALID FOR* Emphysema of lung (HCC) [J43.9] INVALID FOR* LBBB (left bundle branch block) [I44.7] INVALID FOR* Thoracic or lumbosacral neuritis or radiculitis*INVALID FOR*01/05/2017 Special screening for malignant neoplasms, colo*INVALID FOR*05/02/2015 Atherosclerosis of benton coronary artery of na*INVALID FOR* More... Bilateral carotid artery disease (HCC) [I77.9] INVALID FOR* Other instructions from your clinician: LIFESTYLE CHANGE A healthy lifestyle is the most important component of your overall treatment plan. Please give serious thought to the following areas and commit to making senior care changes. EAT A WHOLE FOOD, PLANT BASED DIET The nutrition your body gets is more important than the medicine you take. What matters most is the overall way you eat. We encourage you to minimize the use of animal products (which include dairy and all meats except fatty fish) and use whole, unprocessed plant foods to provide your protein, vitamins and other nutrients. We have a lot of information to share with you on this topic. We also hold Shared Medical Appointments, where you can come visit with Dr. Mercedes in the company of other patients and spend over an hour talking about the challenges of changing the way you eat. This is not a diet. It is a way of life that you will keep with you. EXERCISE REGULARLY It is not important to spend hours in the gym, lifting weights and perspiring heavily. A total of 2-3 hours per week of aerobic (causing you to be moderately short of breath) exercise is sufficient to improve your health. Talk to us before you begin a new exercise program, if you have heart disease or experience shortness of breath or chest pain. REDUCE STRESS Chronic emotional and physical stress leads to disease. Ways of reducing stress include meditation, visualization, prayer, yoga and other forms of relaxation therapy. Consistency is the coy. Find a technique that works for you and do it every day. CULTIVATE RELATIONSHIPS Loneliness and isolation have a major negative impact on health. Seek out others who can love, care for and nurture you. Avoid hurtful relationships. MAINTAIN IDEAL BODY WEIGHT The best way to do this is to do all the things above. Our bodies naturally find the right weight if we keep moving and feed ourselves the right food. If your BMI is greater than 25, we strongly recommend a referral to a weight management program. Please speak to us or your family physician about available programs. AVOID NICOTINE IN ALL FORMS This includes all tobacco products, whether chewed, smoked, vaped, or rubbed on the skin. Smoking cessation programs, which can make use of tobacco substitutes, medications to suppress cravings and behavior management, are available. Please contact your family physician about programs in your area.Classic SmartForms filed during this visit:Extended VitalsEncounter Number: [id number] Status:Closed by JEF MERCEDES MD on 09/14/17 [facility] PROGRESSon 09-14-2017 PROGRESS HNO ID: [id number] thor: Jef Egan: (none)Author Type: PhysicianType: Progress NotesFiled: 09/14/2017 2:39 PMNote Text:PERTINENT CARDIAC HISTORYCardiomyopathy - nonischemicASHD - moderate 2 vessel cath 2015HTNHLRenovascular HTN - left renal stent 2008LBBBADHERENCE TO GUIDELINESACE-I or ARB for HF with prior LVEF<40 (NQF 0081) - metASA or Plavix for ASHD (NQF 0067) - metBeta taras for ASHD with prior MA or prior LVEF<40 (NQF 0070) - metBeta taras for HF with prior LVEF<40 (NQF 0083) - metACE-I or ARB for ASHD with DM or prior LVEF<40 (NQF 0066) - metStatin therapy for ASHD or FHL or DM - metBMI documented and plan if >25 (NQF 0421) - lifestyle recommendation formTobacco use screening and referral (NQF 0028) - lifestyle recommendationformRecommendat ion for whole food, plant based diet - lifestyle recommendationformCLINICAL IMPRESSION/PLAN:Nano Aguilar is clinically stable. Her cardiomyopathy is wellcompensated. Most recent LV function had returned to normal.She's been advised to continue her current medication. We'll check basicprofile to assess hyponatremiaShe reports that blood pressures have been in the 130 systolic range athome. She was advised to watch these .I will see her in 8 months or as needed.Written and verbal health teaching given to patient, patient verbalizesunderstanding and agrees with treatment plan.This note was generated using ThetaRay voice recognition system, and theremay be some incorrect words, spellings, and punctuation that were notnoted in checking the note before saving.DIAGNOSIS FOR VISIT:CardiomyopathyASHDHISTO RY OF PRESENT ILLNESSNano Aguilar returns for follow-up of her nonischemic cardiomyopathyand moderate coronary disease.She has had less anxiety in her life recently. She has had no recent chestdiscomfort. Her exercise tolerance has improved.She denies edema, syncope, palpitations, TIAs, amaurosis and claudication.She rarely required nitroglycerin.ALLERGIES:ALLER GIESAllergen Reactions- Altace [Ramipril] Other: See Comments Cough- Bactrim [Sulfametho* GI Upset Pt having GI upset and stomach pain- Latex Itching Blisters- Relafen [Nabumetone] GI Upset- Bandaids [Other] Rash, Itching blistersCURRENT OUTPATIENT MEDICATIONS:Ibandronate (BONIVA) 150 mg tablet Take 1 tablet by mouth once everymonth. Take as directed.tiotropium (SPIRIVA WITH HANDIHALER) 18 mcg inhalation capsule INHALE 1CAPSULE INSTRUCTED ONCE DAILY.nitroglycerin sublingual (NITROSTAT) 0.4 mg SL tablet Dissolve 1 tabletunder the tongue. DISSOLVE ONE(1) TABLET UNDER THE TOUNGUE NEEDED FORCHEST PAIN,EVERY 5 MIN K8hnpstaoj (COZAAR) 100 mg tablet TAKE 1 TABLET DAILYatorvastatin (LIPITOR) 40 mg tablet Take 1 tablet by mouth once daily.omeprazole (PRILOSEC) 20 mg capsule TAKE 1 CAPSULE BY MOUTH ONCE DAILY.loratadine (CLARITIN) 10 mg tablet TAKE 1 TABLET BY MOUTH EVERY DAY ASNEEDED FOR ALLERGIESipratropium-albutero l (COMBIVENT RESPIMAT) 20-100 mcg/actuation mistInhale 1 Inhalation as instructed four times daily.budesonide-formoterol (SYMBICORT) 160-4.5 mcg/actuation inhaler Inhale 2Puffs as instructed twice daily.desoximetasone (TOPICORT) 0.25 % cream Apply 1 application to affectedarea once daily as needed (Apply sparingly to neck, face. Avoid eyes andmouth.).montelukast (SINGULAIR) 10 mg tablet TAKE 1 TABLET BY MOUTH ONCE DAILY.isosorbide mononitrate ER (IMDUR) 30 mg 24 hr tablet Take 2 tablets bymouth once daily.carvedilol (COREG) 25 mg tablet TAKE 2 TABLETS IN THE MORNING 2 TABLETS INTHE EVENINGamLODIPine (NORVASC) 2.5 mg tablet TAKE 2 TABLETS ONCE DAILYalbuterol (PROVENTIL) 2.5 mg /3 mL (0.083 %) nebulizer solution Use 3 mLvia nebulizer every 4 hours as needed for Wheezing/Shortness of Breath.DX: ICD9: 493.00, ICD10: J45.909CALCIUM CARBONATE (CALTRATE 600 ORAL) Take 2 tablets by mouth once daily.HYDROcodone-acetaminoph en (NORCO) 5-325 mg per tablet Take 1 tablet bymouth once daily. PRNMULTIVIT WITH CALCIUM,IRON,MIN (MULTIPLE VITAMIN, WOMENS ORAL) Take 1capsule by mouth once daily.zolpidem (AMBIEN) 10 mg tab Take by mouth every 4 hours as needed. 1/2 -1 pillcholecalciferol, Vitamin D3, 400 unit Tab Take 1 tablet by mouth oncedaily.azelastine (ASTELIN) 137 mcg NASAL nasal spray Take 2 puffs per nostriltwice daily.aspirin(ECOTRIN LOW STRENGTH 81 MG TAB) Take one(1) tablet daily.ascorbic acid(VITAMIN C 500 MG TAB) Take one(1) tablet daily.FISH VFN-ZDSLP-6-COENZYME Q10 1,900 MG-640 MG-50 MG/2.5 G ORAL PACKET Takeone(1) tablet daily.PHYSICAL EXAMINATION:VITAL SIGNS: BP 140/80 Pulse 60 Ht 5' 5 (1.65m) Wt 154 lb 1.6 oz(69.9kg) BMI 25.64 kg/(m2).Chest: Clear to percussion and auscultation. Trachea is midline. Airentry is equal. Cardiac: Regular rhythm. S1 and S2 are normal. PMI isnondisplaced. There is a soft systolic ejection murmur. Carotids arebrisk without bruits. JVP is less than 10 cm. Abdomen: Soft andnontender. There are no pulsatile masses or bruits. No liverenlargement. Bowel sounds are active. Extremities: Trace edema. Pulsesare intact and symmetrical.EKG shows sinus rhythm with left bundle branch block. There is nosignificant change.Recent labs were reviewed. Renal function is normal. Sodium is borderlinelow. LDL was 40.Electronically Signed:Sabino Saab 2016 2:22 PMCC: Alberto Herr MD [facility] Vital Signs Date Time Vital Sign Value Performing Clinician Faci lity 11-08-2025 13:13-0500 Diastolic blood pressure 85 mm[Hg] Dr. Alberto Herr MD Work Phone: 9(465)444-877088 [place] [address] 11-08-2025 13:13-0500 Systolic blood pressure 124 mm[Hg] Dr. Alberto Herr MD Work Phone: 5(905)905-680788 [place] [address] 11-08-2025 07:50-0500 Body height 165.[address] Alberto Herr MD Work Phone: 5(476)174-597988 [place] [address] 11-08-2025 07:50-0500 Body mass index (BMI) [Ratio] 24.1 kg/m2 Dr. Alberto Herr MD Work Phone: 3(434)557-865288 [place] [address] 11-08-2025 07:50-0500 Body weight 65.[address] Alberto Herr MD Work Phone: 7(702)427-212588 [place] [address] 11-08-2025 07:50-0500 Heart rate 74 /min Dr. Alberto Herr MD Work Phone: 8(038)504-572288 [place] [address] 11-08-2025 07:50-0500 Respiratory rate 18 /min Dr. Alberto Herr MD Work Phone: 4(389)300-195588 [place] [address] 11-08-2025 07:50-0500 SaO2% (BldA) [Mass fraction] 95 % Dr. Alberto Herr MD Work Phone: 7(804)606-369388 [place] [address] 05-24-2025 09:19-0400 Body height 165.[address] Alberto Herr MD Work Phone: 6(742)630-026688 [place] [address] 05-24-2025 09:19-0400 Body mass index (BMI) [Ratio] 22.8 kg/m2 Dr. Alberto Herr MD Work Phone: 0(297)511-894488 [place] [address] 05-24-2025 09:19-0400 Body weight 62.[address] Alberto Herr MD Work Phone: 8(291)806-992788 [place] [address] 05-24-2025 09:19-0400 Diastolic blood pressure 76 mm[Hg] Dr. Alberto Herr MD Work Phone: [facility] 05-24-2025 09:19-0400 Heart rate 64 /min Dr. Alberto Herr MD Work Phone: [facility] 05-24-2025 09:19-0400 Respiratory rate 18 /min Dr. Alberto Herr MD Work Phone: [facility] 05-24-2025 09:19-0400 SaO2% (BldA) [Mass fraction] 97 % Dr. Alberto Herr MD Work Phone: [facility] 05-24-2025 09:19-0400 Systolic blood pressure 115 mm[Hg] Dr. Alberto Herr MD Work Phone: [facility] 01-22-2025 13:46-0400 Body height 157.5 cm Alberto Herr MD Work Phone: [facility] 01-22-2025 13:46-0400 Body mass index (BMI) [Ratio] 24.35 kg/m2 Alberto Herr MD Work Phone: [facility] 01-22-2025 13:46-0400 Body temperature 98.01 [degF] Alberto Herr MD Work Phone: [facility] 01-22-2025 13:46-0400 Body weight 60.4 kg Alberto Herr MD Work Phone: [facility] 01-22-2025 13:46-0400 Diastolic blood pressure 70 mm[Hg] Alberto Herr MD Work Phone: [facility] 01-22-2025 13:46-0400 Heart rate 70 /min Alberto Herr MD Work Phone: [facility] 01-22-2025 13:46-0400 Respiratory rate 14 /min Alberto Herr MD Work Phone: [facility] 01-22-2025 13:46-0400 SaO2% (BldA) [Mass fraction] 99 % Alberto Herr MD Work Phone: [facility] 01-22-2025 13:46-0400 Systolic blood pressure 132 mm[Hg] Alberto Herr MD Work Phone: [facility] 01-14-2025 14:07-0400 Body temperature 97.4 [degF] Dr. Alberto Herr MD Work Phone: [facility] 01-14-2025 14:07-0400 Diastolic blood pressure 79 mm[Hg] Dr. Alberto Herr MD Work Phone: [facility] 01-14-2025 14:07-0400 Heart rate 91 /min Dr. Alberto Herr MD Work Phone: [facility] 01-14-2025 14:07-0400 Respiratory rate 16 /min Dr. Alberto Herr MD Work Phone: [facility] 01-14-2025 14:07-0400 SaO2% (BldA) [Mass fraction] 96 % Dr. Alberto Herr MD Work Phone: [facility] 01-14-2025 14:07-0400 Systolic blood pressure 147 mm[Hg] Dr. Alberto Herr MD Work Phone: [facility] 01-14-2025 04:46-0400 Body mass index (BMI) [Ratio] 23.2 kg/m2 Dr. Alberto Herr MD Work Phone: [facility] 01-14-2025 04:46-0400 Body weight 63.[address] Alberto Herr MD Work Phone: 2(558)743-014988 [place] [address] 01-13-2025 13:16-0400 Body height 165.[address] Alberto Herr MD Work Phone: [facility] 01-13-2025 12:30-0400 Diastolic blood pressure 60 mm[Hg] Dr. Alberto Herr MD Work Phone: 9(994)004-061188 [place] [address] 01-13-2025 12:30-0400 Heart rate 63 /min Dr. Alberto Herr MD Work Phone: 5(251)529-954288 [place] [address] 01-13-2025 12:30-0400 Respiratory rate 12 /min Dr. Alberto Herr MD Work Phone: 5(784)652-634188 [place] [address] 01-13-2025 12:30-0400 Systolic blood pressure 162 mm[Hg] Dr. Alberto Herr MD Work Phone: 6(708)525-785488 [place] [address] 01-13-2025 12:00-0400 SaO2% (BldA) [Mass fraction] 96 % Dr. Alberto Herr MD Work Phone: 6(263)025-478588 [place] [address] 01-13-2025 10:48-0400 Body temperature 97.8 [degF] Dr. Alberto Herr MD Work Phone: 5(406)087-680188 [place] [address] 01-13-2025 07:46-0400 Body height 165.[address] Alberto Herr MD Work Phone: 5(540)702-360788 [place] [address] 01-13-2025 07:46-0400 Body mass index (BMI) [Ratio] 24.2 kg/m2 Dr. Alberto Herr MD Work Phone: 2(959)426-284588 [place] [address] 01-13-2025 07:46-0400 Body weight [address] Alberto Herr MD Work Phone: 8(809)312-298788 [place] [address] 12-01-2024 17:07-0500 Diastolic blood pressure 67 mm[Hg] Dr. Alberto Herr MD Work Phone: 6(666)528-169388 [place] [address] 12-01-2024 17:07-0500 Heart rate 100 /min Dr. Alberto Herr MD Work Phone: 7(907)298-883388 [place] [address] 12-01-2024 17:07-0500 SaO2% (BldA) [Mass fraction] 94 % Dr. Alberto Herr MD Work Phone: 1(025)210-185388 [place] [address] 12-01-2024 17:07-0500 Systolic blood pressure 114 mm[Hg] Dr. Alberto Herr MD Work Phone: 3(744)170-311688 [place] [address] 12-01-2024 15:04-0500 Respiratory rate 18 /min Dr. Alberto Herr MD Work Phone: 5(402)519-544688 [place] [address] 12-01-2024 09:00-0500 Body temperature 98.1 [degF] Dr. Alberto Herr MD Work Phone: 5(027)925-275788 [place] [address] 12-01-2024 06:00-0500 Body mass index (BMI) [Ratio] 22.3 kg/m2 Dr. Alberto Herr MD Work Phone: 1(881)480-542788 [place] [address] 12-01-2024 06:00-0500 Body weight 60.[address] Alberto Herr MD Work Phone: 4(636)081-584988 [place] [address] 11-30-2024 20:39-0500 Inhaled oxygen flow rate 2 L/min Dr. Alberto Herr MD Work Phone: 8(071)538-568588 [place] [address] 11-30-2024 06:00-0500 Inhaled oxygen concentration 30 % Dr. Alberto Herr MD Work Phone: 2(687)622-061988 [place] [address] 11-16-2024 12:04-0500 Body mass index (BMI) [Ratio] 23.3 kg/m2 Dr. Alberto Herr MD Work Phone: 5(611)214-242288 [place] [address] 11-16-2024 12:04-0500 Body weight 63.[address] Alberto Herr MD Work Phone: 4(709)265-438988 [place] [address] 11-16-2024 12:04-0500 Diastolic blood pressure 92 mm[Hg] Dr. Alberto Herr MD Work Phone: 3(551)124-889088 [place] [address] 11-16-2024 12:04-0500 Heart rate 80 /min Dr. Alberto Herr MD Work Phone: 1(248)766-285888 [place] [address] 11-16-2024 12:04-0500 Respiratory rate 18 /min Dr. Alberto Herr MD Work Phone: [facility] 11-16-2024 12:04-0500 Systolic blood pressure 123 mm[Hg] Dr. Alberto Herr MD Work Phone: [facility] 07-19-2024 12:02-0400 Body mass index (BMI) [Ratio] 26.34 kg/m2 Alberto Herr MD Work Phone: [facility] 07-19-2024 12:02-0400 Body temperature 97.3 [degF] Alberto Herr MD Work Phone: [facility] 07-19-2024 12:02-0400 Body weight 66.6 kg Alberto Herr MD Work Phone: [facility] 07-19-2024 12:02-0400 Diastolic blood pressure 64 mm[Hg] Alberto Herr MD Work Phone: [facility] 07-19-2024 12:02-0400 Heart rate 97 /min Alberto Herr MD Work Phone: [facility] 07-19-2024 12:02-0400 SaO2% (BldA) [Mass fraction] 97 % Alberto Herr MD Work Phone: [facility] 07-19-2024 12:02-0400 Systolic blood pressure 98 mm[Hg] Alberto Herr MD Work Phone: [facility] 04-24-2024 12:51-0400 Body mass index (BMI) [Ratio] 27.45 kg/m2 Alberto Herr MD Work Phone: [facility] 04-24-2024 12:51-0400 Body temperature 97.7 [degF] Alberto Herr MD Work Phone: [facility] 04-24-2024 12:51-0400 Body weight 69.4 kg Alberto Herr MD Work Phone: [facility] 04-24-2024 12:51-0400 Diastolic blood pressure 80 mm[Hg] Alberto Herr MD Work Phone: [facility] 04-24-2024 12:51-0400 Heart rate 76 /min Alberto Herr MD Work Phone: [facility] 04-24-2024 12:51-0400 Respiratory rate 20 /min Alberto Herr MD Work Phone: [facility] 04-24-2024 12:51-0400 Systolic blood pressure 114 mm[Hg] Alberto Herr MD Work Phone: [facility] 2024 14:30-0400 Diastolic blood pressure 79 mm[Hg] Dr. Alberto Herr Work Phone: [facility] 2024 14:30-0400 Heart rate 72 /min Dr. Alberto Herr Work Phone: [facility] 2024 14:30-0400 Respiratory rate 18 /min Dr. Alberto Herr Work Phone: [facility] 2024 14:30-0400 SaO2% (BldA) [Mass fraction] 96 % Dr. Alberto Herr Work Phone: [facility] 2024 14:30-0400 Systolic blood pressure 186 mm[Hg] Dr. Alberto Herr Work Phone: [facility] 2024 13:06-0400 Body height 163.[address] Alberto Herr Work Phone: [facility] 2024 13:06-0400 Body mass index (BMI) [Ratio] 24.5 kg/m2 Dr. Alberto Herr Work Phone: [facility] 2024 13:06-0400 Body temperature 97.5 [degF] Dr. Alberto Herr Work Phone: [facility] 2024 13:06-0400 Body weight 65.[address] Alberto Herr Work Phone: 9(945)347-210088 [place] [address] 10-25-2023 13:22-0500 Diastolic blood pressure 85 mm[Hg] Dr. Alberto Herr Work Phone: [facility] 10-25-2023 13:22-0500 Heart rate 78 /min Dr. Alberto Herr Work Phone: [facility] 10-25-2023 13:22-0500 Systolic blood pressure 120 mm[Hg] Dr. Alberto Herr Work Phone: [facility] 10-25-2023 12:58-0500 Body height 163.[address] Alberto Herr Work Phone: 8(366)071-361088 [place] [address] 10-25-2023 12:58-0500 Body mass index (BMI) [Ratio] 25.4 kg/m2 Dr. Alberto Herr Work Phone: 7(880)115-429588 [place] [address] 10-25-2023 12:58-0500 Body weight 68.[address] Alberto Herr Work Phone: [facility] 10-25-2023 12:58-0500 Respiratory rate 18 /min Dr. Alberto Herr Work Phone: [facility] 07-28-2023 14:52-0400 Diastolic blood pressure 90 mm[Hg] Alberto Herr MD Work Phone: [facility] 07-28-2023 14:52-0400 Heart rate 72 /min Alberto Herr MD Work Phone: [facility] 07-28-2023 14:52-0400 Systolic blood pressure 147 mm[Hg] Alberto Herr MD Work Phone: [facility] 07-28-2023 14:42-0400 Body height 159 cm Alberto Herr MD Work Phone: [facility] 07-28-2023 14:42-0400 Body weight 69.31 kg Alberto Herr MD Work Phone: [facility] 07-28-2023 14:42-0400 Respiratory rate 16 /min Alberto Herr MD Work Phone: [facility] 07-28-2023 14:42-0400 SaO2% (BldA) [Mass fraction] 98 % Alberto Herr MD Work Phone: [facility] 05-16-2023 13:29-0400 Body mass index (BMI) [Ratio] 25.4 kg/m2 [facility] 05-16-2023 13:29-0400 Body weight 68.4 kg [facility] 05-16-2023 13:16-0400 Body height 163.83 cm [facility] 05-16-2023 13:16-0400 Body temperature 97.8 [degF] [facility] 05-16-2023 13:16-0400 Diastolic blood pressure 68 mm[Hg] [facility] 05-16-2023 13:16-0400 Heart rate 81 /min [facility] 05-16-2023 13:16-0400 Respiratory rate 20 /min [facility] 05-16-2023 13:16-0400 SaO2% (BldA) [Mass fraction] 99 % [facility] 05-16-2023 13:16-0400 Systolic blood pressure 183 mm[Hg] [facility] 01-13-2023 14:15-0400 Body weight 68.49 kg Alberto Herr MD Work Phone: [facility] 01-13-2023 14:15-0400 Diastolic blood pressure 82 mm[Hg] Alberto Herr MD Work Phone: [facility] 01-13-2023 14:15-0400 Heart rate 65 /min Alberto Herr MD Work Phone: [facility] 01-13-2023 14:15-0400 Respiratory rate 16 /min Alberto Herr MD Work Phone: [facility] 01-13-2023 14:15-0400 SaO2% (BldA) [Mass fraction] 98 % Alberto Herr MD Work Phone: [facility] 01-13-2023 14:15-0400 Systolic blood pressure 124 mm[Hg] Alberto Herr MD Work Phone: [facility] 07-08-2022 14:38-0400 Body temperature 97.3 [degF] Alberto Herr MD Work Phone: [facility] 07-08-2022 14:38-0400 Body weight 67.13 kg Alberto Herr MD Work Phone: [facility] 07-08-2022 14:38-0400 Diastolic blood pressure 80 mm[Hg] Alberto Herr MD Work Phone: [facility] 07-08-2022 14:38-0400 Heart rate 60 /min Alberto Herr MD Work Phone: [facility] 07-08-2022 14:38-0400 Respiratory rate 12 /min Alberto Herr MD Work Phone: [facility] 07-08-2022 14:38-0400 Systolic blood pressure 136 mm[Hg] Alberto Herr MD Work Phone: [facility] 06-19-2022 14:20-0400 Body height 162.[address] Alberto Herr Work Phone: [facility] Work Phone: 06-19-2022 14:20-0400 Body mass index (BMI) [Ratio] 25.5 kg/m2 Dr. Alberto Herr Work Phone: [facility] Work Phone: 06-19-2022 14:20-0400 Body weight 67.[address] Alberto Herr Work Phone: [facility] Work Phone: 06-19-2022 14:20-0400 Diastolic blood pressure 94 mm[Hg] Dr. Alberto Herr Work Phone: [facility] Work Phone: 06-19-2022 14:20-0400 Heart rate 62 /min Dr. Alberto Herr Work Phone: [facility] Work Phone: 06-19-2022 14:20-0400 Respiratory rate 16 /min Dr. Alberto Herr Work Phone: [facility] Work Phone: 06-19-2022 14:20-0400 Systolic blood pressure 158 mm[Hg] Dr. Albetro Herr Work Phone: [facility] Work Phone: 05-18-2022 08:35-0400 Body temperature 97.3 [degF] Dr. Alberto Herr Work Phone: [facility] Work Phone: 05-18-2022 08:35-0400 Diastolic blood pressure 84 mm[Hg] Dr. Alberto Herr Work Phone: [facility] Work Phone: 05-18-2022 08:35-0400 Heart rate 65 /min Dr. Alberto Herr Work Phone: [facility] Work Phone: 05-18-2022 08:35-0400 Respiratory rate 16 /min Dr. Alberto Herr Work Phone: [facility] Work Phone: 05-18-2022 08:35-0400 SaO2% (BldA) [Mass fraction] 99 % Dr. Alberto Herr Work Phone: [facility] Work Phone: 05-18-2022 08:35-0400 Systolic blood pressure 146 mm[Hg] Dr. Alberto Herr Work Phone: [facility] Work Phone: 05-18-2022 06:39-0400 Body mass index (BMI) [Ratio] 26.1 kg/m2 Dr. Alberto Herr Work Phone: [facility] Work Phone: 05-18-2022 06:39-0400 Body weight 68.[address] Alberto Herr Work Phone: [facility] Work Phone: 03-06-2022 14:00-0400 Body height 160 cm Respiratory Wstr Work Phone: [facility] 03-06-2022 14:00-0400 Body weight 68.95 kg Respiratory Wstr Work Phone: [facility] 03-06-2022 14:00-0400 Heart rate 63 /min Respiratory Wstr Work Phone: [facility] 03-06-2022 14:00-0400 Respiratory rate 12 /min Respiratory Wstr Work Phone: [facility] 03-06-2022 14:00-0400 SaO2% (BldA) [Mass fraction] 99 % Respiratory Wstr Work Phone: [facility] 01-02-2022 08:41-0400 Body height 160 cm Alberto Herr MD Work Phone: [facility] 01-02-2022 08:41-0400 Body temperature 97 [degF] Alberto Herr MD Work Phone: [facility] 01-02-2022 08:41-0400 Body weight 69.4 kg Alberto Herr MD Work Phone: [facility] 01-02-2022 08:41-0400 Diastolic blood pressure 78 mm[Hg] Alberto Herr MD Work Phone: [facility] 01-02-2022 08:41-0400 Heart rate 78 /min Alberto Herr MD Work Phone: [facility] 01-02-2022 08:41-0400 Respiratory rate 16 /min Alberto Herr MD Work Phone: [facility] 01-02-2022 08:41-0400 Systolic blood pressure 132 mm[Hg] Alberto Herr MD Work Phone: [facility] Encounters Encounter Date Encounter Type Care Provider Facility Start: 11-08-2025 End: 11-08-2025 Patient encounter procedure Herlinda AGARWAL -Laboratory Work Phone: Start: 11-08-2025 End: 11-08-2025 amb[place] Herr [place] [place]: 11-08-2025 End: 11-08-2025 ambulatory Alberto Herr Facility:[facility] Start: 07-26-2025 End: 07-26-2025 ambulatory ALBERTO HERR Facility:[facility] Start: 07-26-2025 End: 07-26-2025 ambulatory OSVALDO NEMESIO Facility:[facility] Start: 05-24-2025 End: 05-24-2025 Patient encounter procedure Herlinda AGARWAL -[facility] Work Phone: Start: 05-24-2025 End: 05-24-2025 ambulatory [place]to Herr [place] [place]: 01-22-2025 End: 01-22-2025 ambulatory ALBERTO HERR Facility:[facility] Start: 01-22-2025 End: 01-22-2025 Patient encounter procedure ALBERTO HERR [facility] [place] Comment on above: Medicare annual well ness visit, subsequent (Primary Dx); Gastroesophageal reflux disease, unspecified whether esophagitis present; Screening for depression; Encounter for screening examination for other mental health and behavioral disorders; Chronic obstructive pulmonary disease, unspecified COPD type ([facility]); 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 Miranda Tripathi MD -Progressive Care Unit Work Phone: Start: 01-13-2025 End: 01-14-[address] Alberto Herr MD Work Phone: [facility] Work Phone: Start: 01-13-2025 End: 01-14-2025 ambulatory Miranda Tripathi Facility:[facility] Start: 12-27-2024 End: 12-27-2024 ambulatory Alessandra Osman RN Work Phone: [facility] Start: 12-27-2024 End: 12-27-2024 Telephone follow-up Alessandra Osman RN Work Phone: [facility] Comment on above: Transition Of Care ( Follow up day 26) Weekly phone contact (Recurring) for Transitional Care Management Refill Request Start: 12-18-2024 End: 12-19-2024 Refill Alberto Herr MD Work Phone: [facility] [place] Comment on above: Refill Request Start: 12-13-2024 End: 12-13-2024 ambulatory Alessandra Osman RN Work Phone: [facility] Start: 12-13-2024 End: 12-13-2024 Telephone follow-up Alessandra Osman RN Work Phone: [facility] Comment on above: Transition Of Care ( Follow up day 12) Initial phone contact for Transitional Care Management Start: 12-08-2024 End: 12-09-2024 Telephone encounter Alberto Herr MD Work Phone: [facility] [place] Comment on above: [facility] PT POC Start: 12-07-2024 End: 12-07-2024 Telephone encounter Alberto Herr MD Work Phone: [facility] [place] Comment on above: Patient Question; Me dication Problem Start: 12-04-2024 End: 12-04-2024 Patient Outreach Alberto Herr MD Work Phone: [facility] [place] Comment on above: Transition Of Care [facility] SN POC Start: 12-01-2024 Non-patient / Non-visit Dr. Luca Huang DO [facility] Work Phone: Start: 12-01-2024 End: 12-04-2024 Telephone encounter Alberto Herr MD Work Phone: [facility] [place] Comment on above: home health calling Start: 11-30-2024 Non-patient / Non-visit Dr. Luca Huang [facility] Work Phone: Start: 11-30-2024 Non-patient / Non-[facility] Start: 11-29-2024 Non-patient / Non-visit Dr. Chelsea Ortiz MD -[facility] Start: 11-29-2024 Non-patient / Non-visit Dr. Jaime cortes [facility] Work Phone: Start: 11-29-2024 End: 12-01-2024 Evaluation and management of inpatient Dr. Donal Huang -[facility] Work Phone: Start: 11-16-2024 End: 11-16-[address] Edy Drew MD -[facility] Work Phone: Start: 08-14-2024 End: 08-14-2024 Refill Stephanie Hernandez PA-C Work Phone: Pulmonary Medicine Comment on above: Med Change Request Start: 08-14-2024 End: 08-14-2024 Telephone encounter Stephanie Hernandez PA-C Work Phone: Pulmonary Medicine Start: 07-21-2024 End: 07-24-2024 Refill Stephanie Hernandez PA-C Work Phone: Pulmonary Medicine Comment on above: Refill Request Start: 07-20-2024 End: 07-20-2024 Telephone encounter Alberto Herr MD Work Phone: Internal Medicine [place] Comment on above: OT plan of care Start: 07-19-2024 End: 07-19-2024 Office outpatient visit 25 minutes Alberto Herr MD Work Phone: Internal Medicine [place] Comment on above: Congestive heart shyam lure, unspecified HF chronicity, unspecified heart failure type (HCC) (Primary Dx); Encounter for immunization; Non-ischemic cardiomyopathy (HCC); Pulmonary emphysema, unspecified emphysema type (HCC); Asthma-COPD overlap syndrome (HCC); Chronic hyponatremia Start: 07-19-2024 End: 07-19-2024 Patient encounter procedure Stephanie Hernandez PA-C Work Phone: Pulmonary Medicine Comment on above: Chronic obstructive pulmonary disease, unspecified COPD type (HCC) (Primary Dx); Encounter for medication review Start: 07-17-2024 End: 08-08-2024 Telephone encounter Stephanie Hernandez PA-C Work Phone: Family Medicine [place] Comment on above: Medication Problem [facility] PT POC patiet update-appt 1 Start: 07-12-2024 End: 07-12-2024 Telephone encounter Alberto Herr MD Work Phone: Internal Medicine [place] Comment on above: Orders Start: 04-24-2024 End: 04-24-2024 Office outpatient visit 25 minutes Alberto Herr MD Work Phone: Internal Medicine [place] Comment on above: Hyponatremia (Primar y Dx); Hyperkalemia; Allergic rhinitis, unspecified seasonality, unspecified trigger; Asthma-COPD overlap syndrome (HCC); Need for COVID-19 vaccine Start: 04-17-2024 Telephone encounter Alberto miller MD Work Phone: Internal Medicine [place] Comment on above: Results Start: 04-03-2024 Orders Only Alberto regan MD Work Phone: Internal Medicine [place] Comment on above: Chronic hyponatremia (Primary Dx) Results Start: 02-16-2024 Refill Alberto regan MD Work Phone: Internal Medicine [place] Comment on above: Refill Request Start: 01-31-2024 Telephone encounter Alberto miller MD Work Phone: Family Medicine [place] Comment on above: Insurance Authorizat ion ([employer]) Start: 01-29-2024 Orders Only Alberto regan MD Work Phone: Family [facility] [place] Start: 01-04-2024 Non-patient / Non-visit Dr. Aziza Herr Work Phone: [facility] Start: 2024 End: [address] Alberto Herr Work Phone: [facility] Work Phone: Start: 2024 End: [address] Alberto Herr Work Phone: [facility]-Cat Scan, [facility] Work Phone: Start: 12-06-2023 Non-patient / Non-visit Dr. Aziza Herr Work Phone: [facility] Start: 12-06-2023 End: 12-06-[address] Alberto Herr Work Phone: [facility] Work Phone: Start: 12-06-2023 End: 12-06-[address] Alberto Herr Work Phone: [facility]-Cardiovascu lar Services Work Phone: Start: 11-17-2023 End: 11-17-2023 Nursing evaluation of patient and report Mi Nurse Work Phone: [facility] Comment on above: Osteoporotic georgi misbah fracture of spine with routine healing (Primary Dx) Start: 10-25-2023 End: 10-25-[address] Alberto Herr Work Phone: [facility] Work Phone: Start: 09-06-2023 Refill Alberto regan MD Work Phone: Internal Medicine [place] Comment on above: Refill Request Start: 08-13-2023 End: 08-13-2023 Subsequent hospital visit by physician [facility] (I-Stat) Work Phone: Cat Scan Comment on above: Abdominal mass, left lower quadrant [R19.04] Start: 08-02-2023 Telephone encounter Alberto miller MD Work Phone: Internal Medicine [place] Comment on above: Results Start: 07-28-2023 End: 07-28-2023 Patient encounter procedure Alberto Herr MD Work Phone: Internal Medicine [place] Comment on above: Medicare annual [facility], subsequent (Primary Dx); Need for influenza vaccination; Need for COVID-19 vaccine; Bilateral carotid artery stenosis; Asthma-COPD overlap syndrome; Pulmonary emphysema, unspecified emphysema type (HCC); Essential hypertension; Subacute vaginitis; Abdominal mass, left lower quadrant; Left lower quadrant abdominal pain; Other hyperlipidemia Start: 06-28-2023 Refill Alberto regan MD Work Phone: Internal Medicine [place] Comment on above: Refill Request Patient Question (Sp iriva ); Refill Request Start: 05-16-2023 End: 05-16-2023 [facility] Start: 03-29-2023 Telephone encounter Alberto miller MD Work Phone: Internal Medicine [place] Comment on above: Results; Orders Start: 02-05-2023 Refill Alberto regan MD Work Phone: Internal Medicine [place] Comment on above: Refill Request Start: 01-13-2023 End: 01-13-2023 Patient encounter procedure Alberto Herr MD Work Phone: Internal Medicine [place] Comment on above: Asthma-COPD overlap syndrome (HCC) (Primary Dx); Allergic rhinitis, unspecified seasonality, unspecified trigger; Pulmonary emphysema, unspecified emphysema type (HCC); Non-ischemic cardiomyopathy (HCC); 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 (HCC) Start: 12-29-2022 Refill Alberto regan MD Work Phone: Internal Medicine [place] Comment on above: Refill Request Start: 12-23-2022 Refill Alberto regan MD Work Phone: Internal [facility] Comment on above: Refill Request Start: 10-13-2022 Telephone encounter Alberto miller MD Work Phone: Internal [facility] Comment on above: handicap placard Start: 10-06-2022 Refill Alberto regan MD Work Phone: Internal [facility] Comment on above: Refill Request Start: 09-16-2022 Telephone encounter Alberto miller MD Work Phone: Internal [facility] Comment on above: Results Start: 09-11-2022 ambulatory Alberto regan MD Work Phone: Internal [facility] Comment on above: Gastrointestinal Ble ed; dark stool Start: 07-08-2022 End: 07-08-2022 Patient encounter procedure Alberto Herr MD Work Phone: Internal [facility] Comment on above: Near syncope (Primar y Dx); Need for influenza vaccination; Need for COVID-19 vaccine; Non-ischemic cardiomyopathy (HCC); Bilateral carotid artery stenosis; Essential hypertension Start: 07-07-2022 Non-patient / Non-visit Dr. Aziza Herr Work Phone: [facility] Start: 07-07-2022 End: 07-07-[address] Alberto Herr Work Phone: [facility] Work Phone: Start: 07-07-2022 End: 07-07-[address] Alberto Herr Work Phone: [facility]-Cardiovasc[facility] Services Start: 06-19-2022 End: 06-19-[address] Alberto Herr Work Phone: [facility] [facility] Start: 06-10-2022 Refill Alberto regan MD Work Phone: Internal [facility] Comment on above: Refill Request Start: 05-18-2022 End: 05-18-2022 Admission to same day surgery center Dr. Alberto Herr Work Phone: [facility]-Surgical Day Care Start: 04-10-2022 End: 04-10-2022 Subsequent hospital visit by physician Xr [facility] [place] Work Phone: Radiology Start: 03-06-2022 End: 03-06-2022 ambulatory Respiratory Therapist [facility] Work Phone: Pulmonary Medicine Comment on above: Spirometry Start: 03-06-2022 End: 03-06-2022 Patient encounter procedure Respiratory Therapist [facility] Work Phone: [place] [facility] Start: 01-07-2022 Telephone encounter Alberto miller MD Work Phone: Internal Medicine [place] Comment on above: Results, Lab Start: 01-02-2022 End: 01-02-2022 Patient encounter procedure Alberto Herr MD Work Phone: Internal Medicine [place] Comment on above: Medicare annual well ness visit, subsequent (Primary Dx); Allergic rhinitis, unspecified seasonality, unspecified trigger; Essential hypertension; Other hyperlipidemia; Asthma-COPD overlap syndrome (HCC); Pulmonary emphysema, unspecified emphysema type (HCC); Bilateral carotid artery stenosis; 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 Procedures Date Procedure Procedure Detail Performing Clinician Start: 01-22-2025 Adult depression scr eening assessment Alberto eHrr MD Work Phone: Start: 01-13-2025 Plain x-ray of humerus Dr. Alberto Herr MD Work Phone: Start: 01-13-2025 CT angiography of he ad and neck Dr. Alberto Herr MD Work Phone: Start: 01-13-2025 Plain chest X-ray Dr. Hoda Herr MD Work Phone: Start: 11-29-2024 SARS-CoV-2, Influenz a & RSV (PCR) Dr. Alberto Herr MD Work Phone: Start: 11-29-2024 X-ray of chest, PA a nd lateral views Dr. Alberto Herr MD Work Phone: Start: 07-19-2024 PFIZER-BIONTECH COVI D-19 VACCINE AGE 12+ YR (COMIRNATY) Alberto Herr MD Work Phone: Start: 04-24-2024 PFIZER-BIONTECH COVI D-19 VACCINE ( SEASON) AGE 12+ YR Alberto Herr MD Work Phone: Start: 2024 CT angiography of co ronary arteries Dr. Alberto Herr Work Phone: Start: 07-28-2023 PFIZER-BIONTECH COVI D-19 VACCINE ( SEASON) AGE 12+ YR Alberto Herr MD Work Phone: Start: 07-28-2023 INFLUENZA VACCINE, P RSV FREE, AGE 65+ YR, HIGH DOSE, QUADRIVALENT (FLUZONE HIGH-DOSE) Alberto Herr MD Work Phone: Start: 07-08-2022 PFIZER-BIONTECH COVI D-19 BIVALENT BOOSTER VACCINE, AGE 12+ YR Alberto Herr MD Work Phone: Start: 07-08-2022 INFLUENZA SEASONAL QUADRIVALENT HIGH DOSE AGE 65+ Alberto Herr MD Work Phone: Start: 07-07-2022 Cardiovascular stres s test using pharmacologic stress agent Dr. Alberto Herr Work Phone: Start: 05-18-2022 Fluoroscopic guidance Kiran Herr Work Phone: Start: 04-10-2022 Radiologic examinati on knee 1/2 views [facility] Provider Start: 03-06-2022 Spmtry w/vc expirato ry joseph w/wo mxml vol vntj Stephanie Hernandez PAGerald Work Phone: Start: 07-28-2021 Radex hip unilateral with pelvis 2-3 views Roderick Gupta APRN.CNP Work Phone: Start: 04-30-2021 Radiologic exam knee complete 4/more views Alberto Herr MD Work Phone: Plan of Treatment Date Care Activity Detail Author Start: 04-13-2027 Diabetes Screening Diabetes Screenin g [facility] Start: 03-30-2027 Diabetes Screening Diabetes Screenin [facility] Start: 07-28-2026 Diabetes Screening Diabetes Screenin [facility] Start: 04-09-2026 Diabetes Screening Diabetes Screenin [facility] Start: 01-22-2026 Anxiety Screening Anxiety Screening [facility] Start: 01-22-2026 Covid-19 Vaccine () Covid-19 Vaccine () [facility] Comment on above: Postponed from 01/17 (Declined at this time) Start: 01-22-2026 Depression Screening Depression Scre ening [facility] Start: 10-12-2025 Screening for osteoporosis Bone Density Screening [facility] Start: 07-26-2025 End: 07-26-2025 Patient encounter procedure 07/26/2025 1:40 PM EDT Office Visit Internal Medicine [place] [address] [place], [place] [phone] Alberto Herr MD [address] [facility] [place] [id number] 6 month follow up Internal Medicine [place] Comment on above: 6 month follow up Start: 03-30-2025 Hepatitis B surface antibody level LDL Cholesterol [facility] Start: 01-22-2025 End: 01-22-2025 Patient encounter procedure Internal Medicine [place] Comment on above: 6 month follow-up Annual Medicare Well ness w/6 month follow-up Annual Medicare Well ness w/6 month follow-up, (discuss DNR-CC per Ariana NICOLE [facility], per patientrequest 12/07/2024 BQ) Start: 01-17-2025 Covid-19 Vaccine () Covid-19 Vaccine () [facility] Start: 01-17-2025 End: 01-17-2025 Patient encounter procedure 01/17/2025 11:00 AM EDT Office Visit Pulmonary Medicine [address] [place], [place] [phone] Stephanie Hernandez PA-C [address] [place], [place] [phone] 6 month f/u Pulmonary Medicine Comment on above: 6 month f/u Start: 01-14-2025 Patient discharge [facility] Start: 01-13-2025 Following clinical pathway protocol [facility] Start: 01-13-2025 Assessment of risk o f venous thromboembolism [facility] Start: 01-13-2025 Fall prevention [facility] Start: 01-13-2025 Incentive spirometry [facility] Start: 01-13-2025 Insertion of cathete r into peripheral vein [facility] Start: 01-13-2025 Measuring intake and output [facility] Start: 01-13-2025 Providing care accor ding to standard [facility] Start: 01-13-2025 Provision of activit y privileges [facility] Start: 01-13-2025 Referral to occupati onal therapist [facility] Start: 01-13-2025 Referral to service [facility] Start: 01-13-2025 [facility] Start: 01-13-2025 Admission procedure [facility] Start: 01-13-2025 Verification routine [facility] Start: 01-13-2025 Hospital admission, emergency, from emergency room, medical nature [facility] Start: 01-13-2025 [facility] Start: 01-02-2025 DIABETES SCREEN DIABETES SCREEN [facility] Start: 12-01-2024 Patient discharge [facility] Start: 12-01-2024 Referral to service [facility] Start: 11-30-2024 Care planning and pr oblem solving actions [facility] Start: 11-30-2024 Inhalation therapy procedure [facility] Start: 11-29-2024 Following clinical pathway protocol [facility] Start: 11-29-2024 Assessment of risk o f venous thromboembolism [facility] Start: 11-29-2024 Continuous pulse oximetry [facility] Start: 11-29-2024 Insertion of cathete r into peripheral vein [facility] Start: 11-29-2024 Measuring intake and output [facility] Start: 11-29-2024 Providing care accor ding to standard [facility] Start: 11-29-2024 Referral to occupati onal therapist [facility] Start: 11-29-2024 Referral to service [facility] Start: 11-29-2024 Vital signs measurements [facility] Start: 11-29-2024 [facility] Start: 11-29-2024 Dual pressure sponta neous ventilation support [facility] Start: 11-29-2024 Admission procedure [facility] Start: 11-29-2024 [facility] Start: 11-29-2024 Patient referral to dietitian [facility] Start: 10-04-2024 Advance Directive Discussion Advance Directive Discussion [facility] Start: 09-13-2024 End: 09-13-2024 Patient encounter procedure 09/13/2024 2:00 PM EST Office Visit Pulmonary Medicine [address] [place] [address] Stephanie Hernandez PA-C [address] [place] [address] Asthma-COPD overlap syndrome (HCC) [J44.89] Pulmonary Medicine Comment on above: Asthma-COPD overlap syndrome (HCC) [J44.89] Start: 08-01-2024 End: 08-01-2024 Patient encounter procedure 08/01/2024 1:00 PM EDT Office Visit Internal Medicine [place] [address] [facility] [place] [facility] [place] [address] Brooke Cordoba, ELIGIBILITY CONSULTANT.HIGH REACH OPERATOR [address] [facility] [place], [place] [phone] Annual Medicare Wellness w/3 month follow-up [facility] [place] Comment on above: Annual Medicare Well ness w/3 month follow-up Start: 07-28-2024 End: 07-28-2024 Patient encounter procedure 07/28/2024 1:00 PM EDT Office Visit Internal Medicine [place] [address] [facility] [place], [place] [phone] Brooke Cordoba, ELIGIBILITY CONSULTANT.HIGH REACH OPERATOR [address] [facility] [place], [place] [phone] Annual Medicare Wellness w/3 month follow-up [facility] [place] Comment on above: Annual Medicare Well ness w/3 month follow-up Start: 07-19-2024 End: 07-19-2024 Patient encounter procedure Pulmonary Medicine Comment on above: Fax updated med list to [facility] @ [phone]. See phone encounter. Asthma-COPD overlap syndrome (HCC) [J44.89] [facility] follow up heart issue-fax updated med list to [facility] @ [phone] Start: 06-19-2024 Covid-19 Vaccine ( season) Covid-19 Vaccine ( season) [facility] Start: 06-14-2024 End: 06-14-2024 Nursing evaluation of patient and report 06/14/2024 12:30 PM EDT Nurse Visit [facility] [place] [address] [facility] [place] [phone] Nurse, Ma [address] [facility] [place], [place] [phone] [facility] [place] Comment on above: [facility] Start: 06-04-2024 Influenza vaccination Influenza Vacc ine (#1) [facility] Start: 04-24-2024 End: 04-24-2024 Patient encounter procedure 04/24/2024 1:00 PM EDT Office Visit Internal Medicine [place] [address] [place], [place] [address] Alberto Herr MD [address] [place] [address] 6 month follow-up [facility] [place] Comment on above: 6 month follow-up Start: 04-19-2024 End: 07-19-2024 Basic metabolic 2000 panel - Serum or Plasma BASIC METABOLIC PANEL Lab Routine Chronic hyponatremia Expected: 04/19/2024, Expires: 07/19/2024 [facility] Work Phone: Comment on above: Expected: 04/19/2024 , Expires: 07/19/2024 Start: 04-19-2024 End: 07-19-2024 Osmolality of Serum or Plasma OSMOLALITY Lab Routine Chronic hyponatremia Expected: 04/19/2024, Expires: 07/19/2024 [facility] Comment on above: Expected: 04/19/2024 , Expires: 07/19/2024 Start: 04-09-2024 Hepatitis B surface antibody level LDL Cholesterol [facility] Start: 2024 Following clinical pathway protocol [facility] Start: 11-28-2023 Covid-19 Vaccine ( season) Covid-19 Vaccine ( season) [facility] Start: 10-04-2023 Advance Directive Discussion Advance Directive Discussion [facility] Start: 10-04-2023 Behavioral Health Screening Behavioral Health Screening [facility] Start: 10-04-2023 Depression Assessment Depression Ass essment [facility] Start: 06-04-2023 Influenza vaccination Influenza Vacc ine (#1) [facility] Start: 05-16-2023 Plain chest X-ray Chest PA and Later al [facility] Start: 05-16-2023 Plain x-ray of hand Hand Min 3 Views [facility] Start: 05-16-2023 Plain x-ray of wrist Wrist min 3 Vie ws [facility] Start: 05-16-2023 XR Chest PA and Lateral [facility] Start: 05-16-2023 XR Hand GE [address] [facility] Start: 05-16-2023 XR Wrist GE [address] [facility] Start: 04-02-2023 End: 06-02-2023 25-hydroxyvitamin D3 [Mass/volume] in Serum or Plasma VITAMIN D 25 HYDROXY Lab Routine Osteoporotic compression fracture of spine with routine healing Expected: 04/02/2023, Expires: 06/02/2023 [facility] Work Phone: Comment on above: Expected: 04/02/2023 , Expires: 06/02/2023 Start: 04-02-2023 End: 06-02-2023 CBC panel - Blood by Automated count CBC Lab Routine 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 (HCC) Expected: 04/02/2023, Expires: 06/02/2023 [facility] Work Phone: Comment on above: Expected: 04/02/2023 , Expires: 06/02/2023 Start: 04-02-2023 End: 06-02-2023 Comprehensive metabolic 2000 panel - Serum or Plasma COMP METABOLIC PANEL Lab Routine Other hyperlipidemia Expected: 04/02/2023, Expires: 06/02/2023 [facility] Work Phone: Comment on above: Expected: 04/02/2023 , Expires: 06/02/2023 Start: 04-02-2023 End: 06-02-2023 Lipid 1996 panel - Serum or Plasma LIPID PANEL BASIC Lab Routine Other hyperlipidemia Expected: 04/02/2023, Expires: 06/02/2023 [facility] Work Phone: Comment on above: Expected: 04/02/2023 , Expires: 06/02/2023 Start: 01-06-2023 End: 03-08-2023 CBC panel - Blood by Automated count CBC Lab Routine Non-ischemic cardiomyopathy (HCC) Expected: 01/06/2023, Expires: 03/08/2023 [facility] Work Phone: Comment on above: Expected: 01/06/2023 , Expires: 03/08/2023 Start: 01-06-2023 End: 03-08-2023 Comprehensive metabolic 2000 panel - Serum or Plasma COMP METABOLIC PANEL Lab Routine Essential hypertension Expected: 01/06/2023, Expires: 03/08/2023 [facility] Work Phone: Comment on above: Expected: 01/06/2023 , Expires: 03/08/2023 Start: 01-06-2023 End: 03-08-2023 Lipid 1996 panel - Serum or Plasma LIPID PANEL BASIC Lab Routine Essential hypertension Expected: 01/06/2023, Expires: 03/08/2023 [facility] Work Phone: Comment on above: Expected: 01/06/2023 , Expires: 03/08/2023 Start: 01-02-2023 Hepatitis B surface antibody level LDL CHOLESTEROL [facility] Start: 11-08-2022 Covid-19 Vaccine (5 - Moderna series) Covid-19 Vaccine (5 - Moderna series) [facility] Start: 10-04-2022 ADVANCE DIRECTIVE DISCUSSION ADVANCE DIRECTIVE DISCUSSION [facility] Start: 10-04-2022 DEPRESSION ASSESSMENT DEPRESSION ASS ESSMENT [facility] Start: 09-12-2022 End: 11-12-2022 CBC panel - Blood by Automated count CBC Lab Routine Black stools Expected: 09/12/2022, Expires: 11/12/2022 [facility] Work Phone: Comment on above: Expected: 09/12/2022 , Expires: 11/12/2022 Start: 09-08-2022 DIABETES SCREEN DIABETES SCREEN [facility] Start: 06-04-2022 Influenza vaccination INFLUENZA (#1) [facility] Start: 05-18-2022 Anes dx/ther nrv blk /njx oth/thn prone pos ANESTH NERVE BLOCK/INJ [facility] Work Phone: Start: 05-18-2022 Injection aa&/strd genicular nrv branches w/img NJX AA&/STRD GNCLR NRV BRNCH [facility] Work Phone: Start: 05-18-2022 Patient discharge [facility] Work Phone: Start: 01-17-2022 COVID-19 VACCINE (4 - Booster for Moderna series) COVID-19 VACCINE (4 - Booster for Moderna series) [facility] Start: 01-02-2022 End: 03-04-2022 Comprehensive metabolic 2000 panel - Serum or Plasma [facility] Work Phone: Comment on above: Expected: 01/02/2022 , Expires: 03/04/2022 Start: 01-02-2022 End: 03-04-2022 LIPID PANEL BASIC [facility] Work Phone: Comment on above: Expected: 01/02/2022 , Expires: 03/04/2022 Start: 10-28-2021 Hepatitis B surface antibody level LDL CHOLESTEROL [facility] Start: 04-20-2009 Urine microalbumin profile [facility] Start: 04-10-2009 SHINGRIX VACCINE (2 of 3) CALVO GRIX VACCINE (2 of 3) [facility] Start: 1998 RSV Vaccine (1 - 1-d ose 60+ series) RSV Vaccine (1 - 1-dose 60+ series) [facility] Start: 01-04-1958 Anxiety Screening Anxiety Screening [facility] Start: 01-04-1956 Depression Screening Depression Scre ening [facility] Basic metabolic 2008 panel with ionized calcium - Serum or Plasma [facility] End: 08-26-2024 Ct abdomen & pelvis w/o contrast material CT ABD/PEL WO IVCON Radiology Routine Abdominal mass, left lower quadrant Left lower quadrant abdominal pain 1 Occurrences starting 07/28/2023 until 08/26/2024 [facility] Work Phone: Comment on above: 1 Occurrences starti ng 07/28/2023 until 08/26/2024 Ct abdomen & pelvis w/o contrast material CT ABD/PEL WO IVCON Radiology Routine Abdominal mass, left lower quadrant Left lower quadrant abdominal pain 08/13/2023 3:37 PM EST [facility] Work Phone: Patient Education [facility] Work Phone: Patient referral [facility] Work Phone: [facility] Immunizations Immunization Date Immunization Notes Care Provider [email or web address] 07-19-2024 COVID-19 vaccine, ag e 12+ yr (PFIZER-BIONTECH COMIRNATY) Stephanie Hernandez PA-C Work Phone: [facility] 07-13-2024 influenza, high dose seasonal, preservative-free Dr. Alberto Herr MD Work Phone: [facility] 04-24-2024 COVID-19 vaccine, ag e 12+ yr, season (PFIZER-BIONTECH) Alberto Herr MD Work Phone: [facility] 08-24-2023 respiratory syncytia l virus (RSV) vaccine, adjuvanted (AREXVY) Alberto Herr MD Work Phone: [facility] 07-28-2023 COVID-19 vaccine, ag e 12+ yr, season (PFIZER-BIONTECH) Alberto Herr MD Work Phone: [facility] Work Phone: 07-28-2023 influenza (HD-IIV4) vaccine, age 65+ yr, high dose, quadrivalent, PF (FLUZONE HIGH-DOSE) Alberto Herr MD Work Phone: [facility] Work Phone: 07-28-2023 influenza virus vacc ine, unspecified formulation Alberto Herr MD Work Phone: [facility] 07-08-2022 COVID-19 booster vaccine, age 12+ yr, bivalent (PFIZER-BIONTECH) Alberto Herr MD Work Phone: [facility] Work Phone: 07-08-2022 influenza, high-dose , quadrivalent vaccine (FLUZONE HIGH DOSE QUADRIVALENT) Alberto Herr MD Work Phone: [facility] Work Phone: 07-08-2022 influenza virus vacc ine, unspecified formulation Alberto Herr MD Work Phone: [facility] 09-18-2021 Covid (Moderna) Dr. Alberto Herr MD Work Phone: [facility] 07-12-2021 influenza, high-dose , quadrivalent vaccine (FLUZONE HIGH DOSE QUADRIVALENT) Alberto Herr MD Work Phone: [facility] 11-28-2020 COVID-19 vaccine, fu ll dose (MODERNA) Alberto Herr MD Work Phone: [facility] Work Phone: 10-31-2020 COVID-19 vaccine, fu ll dose (MODERNA) Alberto Herr MD Work Phone: [facility] Work Phone: 06-23-2020 influenza, high dose seasonal, preservative-free Alberto Herr MD Work Phone: [facility] Work Phone: 06-12-2020 Influenza High-Dose Quadrivalent Dr. Alberto Herr MD Work Phone: [facility] 07-28-2019 influenza, high dose seasonal, preservative-free Alberto Herr MD Work Phone: [facility] 07-13-2018 influenza, high dose seasonal, preservative-free Alberto Herr MD Work Phone: [facility] 07-08-2017 influenza, high dose seasonal, preservative-free Alberto Herr MD Work Phone: [facility] 07-03-2016 influenza, high dose seasonal, preservative-free Alberto Herr MD Work Phone: [facility] 07-03-2016 pneumococcal polysaccharide vaccine, 23 valent Alberto Herr MD Work Phone: [facility] 07-11-2015 influenza, high dose seasonal, preservative-free Alberto Herr MD Work Phone: [facility] 03-06-2015 pneumococcal conjuga te vaccine, 13 valent Alberto Herr MD Work Phone: [facility] 08-03-2013 influenza, injectable,quadrivalent, preservative free, pediatric Dr. Alberto Herr Work Phone: [facility] 08-03-2013 influenza, seasonal, injectable, preservative free Alberto Herr MD Work Phone: [facility] Work Phone: 07-10-2013 influenza virus vacc ine, unspecified formulation Alberto Herr MD Work Phone: [facility] 07-07-2012 influenza virus vacc ine, unspecified formulation Alberto Herr MD Work Phone: [facility] 07-01-2011 influenza virus vacc ine, unspecified formulation Alberto Herr MD Work Phone: [facility] Work Phone: 10-23-2009 novel influenza-H1N1 -09, all formulations Alberto Herr MD Work Phone: [facility] Work Phone: 10-23-2009 novel influenza-H1N1 -09, preservative-free, injectable Dr. Alberto Hrer MD Work Phone: [facility] 07-18-2009 influenza virus vacc ine, unspecified formulation Alberto Herr MD Work Phone: [facility] 04-19-2009 tetanus and diphther ia toxoids, adsorbed, preservative free, for adult use (2 Lf of tetanus toxoid and 2 Lf of diphtheria toxoid) Alberto Herr MD Work Phone: [facility] Work Phone: 02-13-2009 zoster vaccine, live Alberto Herr MD Work Phone: [facility] Work Phone: 08-09-2008 influenza virus vacc ine, unspecified formulation Alberto Herr MD Work Phone: [facility] Work Phone: 08-09-2007 influenza virus vacc ine, unspecified formulation Alberto Herr MD Work Phone: [facility] 10-04-2006 pneumococcal polysaccharide vaccine, 23 valpartha Herr MD Work Phone: [facility] Work Phone: 10-04-[address] Francisco Herr Work Phone: [facility] Work Phone: 10-04-2006 pneumococcal vaccine , unspecified formulation [facility] 07-30-2006 influenza virus vacc ine, unspecified formulation Alberto Herr MD Work Phone: [facility] 06-08-2000 pneumococcal polysaccharide vaccine, 23 valpartha Herr MD Work Phone: [facility] Work Phone: 08-28-1974 pneumococcal polysaccharide vaccine, 23 endy Herr MD Work Phone: [facility] Work Phone: Payers Date Payer Category Payer Self-pay 2021 Medicare AETNA MEDICARE A ETNA MEDICARE PPO [id number] 2021-Present [phone] [facility] [id number] [place] [address] [facility] [id number] 2021 Medicare (Managed Care) AETNA CO DICARE [id number] 2013 Private Health Insurance [id number] 2009 Medicare [id number] Medicare [id number] Unknown [id number] Unknown [id number] Unknown [id number] Unknown [id number] Unknown [id number] Unknown [id number] Social History Date Type Detail Facility Start: 07-01-2011 End: 01-13-2025 Tobacco smoking status NHIS Ex-smoker [facility] Work Phone: Start: 10-04-1964 End: 10-04-1984 History of tobacco use Current smoker [facility] Work Phone: Start: 10-04-1964 End: 10-04-1984 History of tobacco use Cigarette Smoker [facility] Work Phone: Start: 01-02-2022 End: 01-22-2025 Alcohol intake Current drinker of alcohol (finding) [facility] Start: 01-02-2022 History SDOH Alcohol Frequency 3 [facility] Start: 01-02-2022 History SDOH Alcohol Std Drinks 1 [facility] Start: 01-02-2022 History SDOH Social Connections Phone 5 [facility] Start: 01-02-2022 History SDOH Social Connections Get Together 2 [facility] Start: 01-02-2022 History SDOH Physical Activity DPW 0 [facility] Start: 1940 Sex Assigned At Not on file [facility] Start: 03-31-2021 End: 07-08-2022 Exposure to SARS-CoV-2 (event) Not sure [facility] Start: 07-01-2011 End: 07-28-2023 Cigarettes smoked current (pack per day) - Reported 1 [facility] Work Phone: Start: 07-01-2011 End: 07-19-2024 Tobacco use and exposure Smokeless tobacco non-user [facility] Work Phone: Start: 06-19-2022 End: 10-25-2023 Tobacco smoking status NHIS Unknown if ever smoked [facility] Start: 1940 Sex Assigned At Female [facility] Start: 01-02-2022 End: 07-28-2023 Social connection and isolation panel [facility] Work Phone: Do you belong to any clubs or organizations such as congregational groups, unions, fraternal or athletic groups, or school groups? No [facility] Work Phone: Are you now , , , , never or living with a partner? [facility] Work Phone: How often to you hav e a drink containing alcohol? 2-4 times a month [facility] Work Phone: How many standard dr inks containing alcohol do you have on a typical day? 1 or 2 [facility] Work Phone: How often do you hav e 6 or more drinks on 1 occasion? Never [facility] Work Phone: Adult Depression Screening Assessment 1 [facility] Work Phone: Do you feel stress - tense, restless, nervous, or anxious, or unable to sleep at night because your mind is troubled all the time - these days [OSQ] Not at all [facility] Work Phone: Start: 01-13-2025 End: 01-14-2025 Sex Female (finding) [facility] Start: 11-08-2025 Social Determinants of Health* Social Determinants of Health* [facility] Work Phone: Goals Date Patient Goal Desired Activity /State Functional Status Date Assessment Result Facility 01-22-2025 Total score [AUDIT-C] 0 01/23/20 25 2:16 PM EDT Alberto Herr MD [facility] 01-14-2025 Functional status Ambulates [facility] Work Phone: 12-01-2024 Functional status Ambulates [facility] Work Phone: 04-23-2015 Are you deaf, or do you have serious difficulty hearing No 04/23/2015 12:42 PM EDT Anabelle Sotelo Ma No [facility] 04-23-2015 Are you blind, or do you have serious difficulty seeing, even when wearing glasses No 04/23/2015 12:42 PM EDT Anabelle Sotelo Ma [facility] 04-23-2015 Do you have serious difficulty walking or climbing stairs No 04/23/2015 12:42 PM EDT Anabelle Sotelo Ma [facility] 04-23-2015 Do you have difficul ty dressing or bathing No 04/23/2015 12:42 PM EDT Anabelle Sotelo Ma [facility] 04-23-2015 Because of a physica l, mental, or emotional condition, do you have difficulty doing errands alone such as visiting a physician's office or shopping No 04/23/2015 12:42 PM Anabelle Ruiz Ma [facility] Mental Status Date Assessment Result Facility 01-14-2025 Cognitive function Voice/Name [facility] Work Phone: 01-13-2025 Cognitive function Level Of Cons ciousness Awake;Alert;Appropriate;Fol lows Commands [facility] Work Phone: 12-01-2024 Cognitive function Voice/Name [facility] Work Phone: 2024 Cognitive function Voice/Name [facility] Work Phone: 05-18-2022 Cognitive function Voice/Name [facility] Work Phone: 05-18-2022 Cognitive function Patient Orien tation Person;Place;Time [facility] Work Phone: 04-23-2015 Because of a physica l, mental, or emotional condition, do you have serious difficulty concentrating, remembering, or making decisions No 04/23/2015 12:42 PM EDT Ashleigh Segovia Anabelle No [facility] Clinical Notes 05-02-2015 to 01-15-2026 Note Date & Type Note Facility 01-15-2026 Note HNO ID: [id number] Author: VIOLETA WATSON, ? Service: ? Author Type: Population Health Navigator Type: Progress Notes Filed: 01/15/2026 10:28 Note Text: POPULATION HEALTH NAVIGATION OUTREACH Action/FYI HCC review Reason for Outreach Care Gap/HCC or Scheduling Wellness Visits Care Gaps due: N/A Patient Contacted: Unable or unnecessary to reach patient: HCC related Updated appointment notes Navigation Signature: Violeta Watson January 15, 2026 10:27 AM [facility] 01-15-2026 Note Patient Outreach (NE TNAV) NANO AGUILAR ([id number]) 1940 F Date Time Provider Department 01/15/26 VIOLETA WATSON During your visit today, we recorded the following information about you: Violeta Watson 01/15/2026 10:28 AM Signed POPULATION HEALTH NAVIGATION OUTREACH Action/FYI HCC review Reason for Outreach Care Gap/HCC or Scheduling Wellness Visits Care Gaps due: N/A Patient Contacted: Unable or unnecessary to reach patient: HCC related Updated appointment notes Navigation Signature: Violeta Watson January 15, 2026 10:27 AM Allergies [...] (FLONASE) 50 mcg/actuation nasal spray Use 1 [place] in each nostril once daily. * albuterol [...] tablet by mouth once daily. * FISH SUG-XLWWO-3-COENZYME Q10 1,900 MG-640 MG-50 MG/2.5 G ORAL [...] vaginal wal*12/21/2011 03/06/2015 Degeneration of intervertebral disc [IKZ9885] 03/06/2015 Personal history of renal artery stenosis [Z86.*08/23/2009 03/06/2015 Ganglion cyst [M67.40] 07/26/2012 05/17/2013 Occipital neuralgia [M54.81] 05/17/2013 01/05/2017 Lumbago [M54.50] 05/17/2013 Insomnia [G47.00] 05/17/2013 Emphysema of lung (HCC) [J43.9] 03/05/2015 LBBB (left bundle branch block) [I44.7] 03/05/2015 Thoracic or lumbosacral neuritis or radiculitis*03/07/2015 01/05/2017 Special screening for malignant neoplasms, colo*05/02/2015 05/02/2015 Atherosclerosis of benton coronary artery of na*07/03/2016 Bilateral carotid artery disease (HCC) [I77.9] (more content not included)... [facility] 11-08-2025 Evaluation note Diagnosis Onset Date Resolution Weakness acute November 08, 2025 1:00pm Bilateral carotid artery disease chronic November 08 1:00pm CAD (coronary artery disease) chronic November 08 1:00pm Chronic systolic congestive heart failure, NYHA class 2 chronic November 082025 1:00pm Dyslipidemia chronic November 1:00pm Essential hypertension chronic Fe bruary 2025 1:00pm History of stent insertion of renal artery chronic November 08 1:00pm Mitral regurgitation chronic Febr uary 2025 1:00pm Nonischemic cardiomyopathy chronic November 08 1:00pm [facility] Work Phone: 1(252) 284-562802-05-2026 Progress [facility] [address] [place] [address]. [address] [place] [address] OFFICE VISIT Date of Service: 11/08/25 MR#: [id number] Acct: [id number] Name: NANO AGUILAR Rep #: [id number] : 1940 Provider: STEFANO Ureña Age/Sex: 85/F [place] [facility] [place] Status: Signed HPI HPI History of Present Illness Details: This is an 85-year-old female who presents today for cardiovascular follow-up visit. She has a history of nonischemic cardiomyopathy, hypertension, dyslipidemia, coronary artery disease and mitral valve regurgitation. From a cardiac standpoint, the patient is doing well. She denies any palpitations, chest pain, pressure or heaviness. She does acknowledge SOB-she attributes this to her COPD. She states this is nothing new or worsening. She denies Orthopnea, and PND. She does not have bleeding issues; no blood in u rine,stool, or nosebleeds. She denies any decrease in energy level, myalgias, or claudication. She does not have edema, or sudden weight gain. She denies lightheadedness, dizziness, syncopal or near syncopal episodes, and headaches. She does acknowledge getting weaker. Intake Vital Signs 05/24/25 09:19 11/08/25 07:50 11/08/25 13:10 11/08/25 13:13 Height 5 ft 5 in 5 ft 5 in Weight: 145 lb BMI 24.1 BP 185/81 H 174/80 H 124/85 H Blood Pressure Location Rt brachial Rt brachial Lt brachial Position Sitting Sitting Sitting Respiration 18 Pulse 74 Pulse Source Monitor Monitor Pulse Oximetry (%) 95 Intake Visit Reasons: 6 M FU Cupola Charger Required: No Accompanied by: Self The most recent Systolic Blood Pressure reading (HTN, CKD, CAD, DM): Systolic <130mmHg (3074F) The most recent Diastolic Blood Pressure reading (HTN, CKD, CAD, DM): Diastolic 80-89 mmHg (3079F) Is patient in pain?: No Allergies adhesive tape Adverse Reaction (Verified 11/08/25 13:23) Itching latex Adverse Reaction (Verified 11/08/25 13:23) Rash nabumetone (From Relafen) Adverse Reaction (Verified 11/08/25 13:23) Nausea ramipril (From Altace) Adverse Reaction (Verified 11/08/25 13:23) Other sulfamethoxazole (From Bactrim) Adverse Reaction (Verified 11/08/25 13:23) Nausea trimethoprim (From Bactrim) Adverse Reaction (Verified 11/08/25 13:23) Nausea Medications ?Medication ?Instructions ?Recorded ?Confirmed ?Type aspirin 81 mg tablet,delayed 81 mg PO DAILY@0800 [facility] 09/09/18 11/08/25 History release loratadine 10 mg tablet 10 mg PO DAILY allergies 04/2011/08/25 History montelukast 10 mg tablet 10 mg PO DAILY allergies 04/2011/08/25 History multivitamin with folic acid 400 1 tab PO DAILY vitami n 09/09/18 11/08/25 History mcg tablet pantoprazole 20 mg tablet,delayed 20 mg PO DAILY reflu x 08/08/19 11/08/25 History release cholecalciferol (vitamin D3) 10 10 mcg PO DAILY vitami n 07/11/24 11/08/25 History mcg (400 unit) chewable tablet albuterol sulfate 90 mcg/actuation 2 puff inhalation Q 4 PRN wheezing 11/16/24 11/08/25 History aerosol inhaler fluticasone fur. 100 mcg-umeclid 1 ea inhalation DAILY breathing 11/16/24 11/08/25 History 62.5 mcg-vilant 25 mcg inhalat.powder (Trelegy Ellipta) calcium 600 mg (as 2 tab PO DAILY VITAMIN 01/1311/08/25 History carbonate)-vitamin D3 10 mcg (400 unit) tablet atorvastatin 40 mg tablet 40 mg PO QHS #90 TABLETS 11/08/25 Rx carvedilol 12.5 mg tablet 12.5 mg PO BID blood pressur e #180 01/30/25 11/08/25 Rx tabs dapagliflozin propanediol 10 mg 10 mg PO DAILY diabete s #90 tabs 03/05/25 11/08/25 Rx tablet (Farxiga) sacubitril 49 mg-valsartan 51 mg 1 tab PO BID heart #1 80 tabs 03/05/25 11/08/25 Rx tablet (Entresto) nitroglycerin 0.4 mg sublingual See Rx Instructions .R oute 05/24/25 11/08/25 Rx tablet .COMPLEX chest pain #25 tabs potassium chloride 20 mEq 20 meq PO DAILY supplement # 90 tabs 07/11/25 11/08/25 Rx tablet,extended release furosemide 40 mg tablet (Lasix) 40 mg PO BID diuretic #60 tabs 08/13/25 11/08/25 Rx isosorbide mononitrate 60 mg 60 mg PO DAILY heart #90 tabs 09/07/25 11/08/25 Rx tablet,extended release 24 hr hydrocodone 5 mg-acetaminophen 300 1 tab PO QHS PRN 11/08/25 History mg tablet Medication Reconciliation completed?: Yes Ejection fraction %: 20 [facility] Medical History COPD exacerbation CHF exacerbation Acute hypoxic respiratory failure Osteoarthritis Osteoporosis Non-smoker Irregular heart beat Hypertension Congestive heart failure (CHF) Alcohol abuse Use of cane as ambulatory aid Mitral regurgitation CAD (coronary artery disease) Wears hearing aid Wears glasses Alcohol use Arthritis High cholesterol Excessive bleeding History of recent fall Back pain Dietary restriction Gastric reflux Former smoker Emphysema, unspecified COPD (chronic obstructive pulmonary disease) Asthma Shortness of breath on exertion Leg cramps History of pain when walking History of echocardiogram History of stress test Cardiology follow-up encounter HLD (hyperlipidemia) Valvular heart disease Chest pressure Hepatic cyst Bilateral carotid artery disease Atherosclerotic heart disease of benton coronary artery without angina pectoris LBBB (left bundle branch block) Renovascular hypertension Essential hypertension GERD (gastroesophageal reflux disease) Nonischemic cardiomyopathy Dyslipidemia Asthma Chest pain Surgical History History of cardiac catheterization Hx of bilateral cataract extraction Hx of colonoscopy History of breast biopsy History of tonsillectomy Social History Smoking Status: Former smoker how long ago did patient quit smokin alcohol intake: current alcohol intake frequency: a few times a week Alcohol type: wine substance use type: does not use caffeine: Yes Type: coffee Number of servings: 2 ROS Const Const: Positive for weakness; Negative for fatigue, headache(s) or frequent falls Eyes Eyes: Negative for blurry vision ENT ENT: Negative for headache(s), dizziness or Nosebleed/epistaxis Cardio Chest Pain: No Palpitations: No Edema: None Muscle aches with walking: None Resp Respiratory: Positive for SOB with activity; Negative for SOB at rest or SOB orthopnea\SOB lying down GI GI: Negative nausea, vomiting, heartburn, bright, red blood in stools or black,tarry stools : Negative for hematuria Neuro Neuro: Positive for weakness; Negative for dizziness, lightheadedness, near syncope, syncope, frequent falls, headache(s) or blurry vision Endo Endo: Negative for fatigue Cardiology Exam Const Appearance: cooperative, comfortable and no acute distress Nutritional Appearance: well nourished Orientation: alert and oriented x3 Head Head: normal to inspection Ears: hearing grossly normal bilaterally Nose: external nose normal Face and Sinus: face symmetric Eyes General: appearance normal, both eyes and all related structures Eyelids: eyelids normal Conjunctivae: conjunctivae normal Pupils: PERRL and pupil size EOM: EOM intact bilaterally Neck Neck: normal visual inspection and no JVD Carotids: bruit (Right carotid bruit audible) Chest Chest inspection: normal inspection of the chest and normal respiratory effort Auscultation: Bilateral: Clear to Auscultation Cardio Palpation: normal PMI Rate: regular rate Rhythm: regular rhythm Heart sounds: S1 normal and S2 normal GI GI: normal to inspection and soft Neuro General: patient alert, patient awake and patient oriented x3 Skin Skin: no rashes or lesions noted Extremities Pulses: Normal: Right Posterior Tibial Pulse, Left Posterior Tibial Pulse, RightRadial Pulse and Left Radial Pulse Lower Extremity Edema: None: Bilateral Psych Psychological: normal affect Supplemental Info Supplemental Information Echocardiogram 11/29/2024: Interpretation Summary The estimated ejection fraction is 20 %. There is severe global hypokinesis of the left ventricle. CCTA w/Cont Coronary Arteries 2024: Abnormal echo Coronary Calcium Scoring: High-resolution Computed Tomographic imaging of the chest was performed on [2024], with particular attention paid to the coronary arteries. Intravenous contrast agent was administered per protocol and images reconstructed and displayed. The images were suboptimal due to patient movementas well as high heart rate. Patient needed to be administered oral metoprolol to get heart rates to the mid 70s. LEFT MAIN CORONARY ARTERY: Arises from the left coronary cusp and appears to be normal and bifurcates to left anterior descending artery and left circumflex artery. LEFT ANTERIOR DESCENDING CORONARY ARTERY: Significant motion artifact noted withcalcification in the proximal and mid regions. Difficult to ascertain exact stenosis. LEFT CIRCUMFLEX CORONARY ARTERY: Severely calcified in the proximal and mid segments with blooming artifact and difficult to interpret extent of stenosis RIGHT CORONARY ARTERY: Suboptimal injection and opacification with difficult to interpret stenosis. THORACIC AORTA: PULMONARY ARTERY: LEFT ATRIUM/APPENDAGE: MITRAL VALVE: AORTIC VALVE: LEFT VENTRICLE: CORONARY CALCIUM SCORE: Not performed Conclusion: Suboptimal coronary CT with inability to determine extent of coronary stenosis. However significantcalcification is noted in the LAD and left circumflex arterial systems. Echocardiogram 07/12/2024: Interpretation Summary The left ventricular ejection fraction is 20 %. Normal LV size. There is severe global hypokinesis of the left ventricle. Moderately severe (3+) eccentric mitral valve insufficiency. Pulmonary artery systolic pressure is 50 mmHg. Echocardiogram 12/2023: The left ventricular ejection fraction is 35 %. Stage 2 diastolic dysfunction. The left atrium is moderately enlarged. Moderate (2+) mitral valve insufficiency. Mild tricuspid valve insufficiency. Right ventricular systolic pressure estimated to be 41 mmHg. Aortic sclerosis, no stenosis. Stress Test Report Date: 07-07-2022 Impression: 1.? Pharmacologic (Regadenoson) evaluation 2.? Peak pharmacologic ECG with continued left bundle branch block. 3.? There were no cardiac dysrhythmias pretest, during pharmacologic infusion, or recovery. 4.? Nuclear images pending Interpretation: Rest and stress SPECT Cardiolite nuclear imaging status post realignment, normalization, and attenuation correction demonstrate relative uniform tracer uptake and myocardial perfusion appearing within normal limits.? There is end systolic thickening and brightening.? The gated Cardiolite study demonstrates myocardial thickening and inward wall motion.? The reported LVEF is 52%. Impression: 1.? Rest and stress SPECT Cardiolite nuclear imaging demonstrate relative uniform tracer uptake andmyocardial perfusion appearing within normal limits. 2.? The gated Cardiolite study reports an LVEF of 52%. Carotid Duplex US 12/06/2023: Interpretation Summary Mild (<50%) stenosis right extracranial internal carotid. Mild (<50%) stenosis left extracranial internal carotid. The Right vertebral is patent and antegrade. The Left vertebral flow is bidirectional. Carotid Duplex 08/29/2019: Mild (<50%) stenosis right extracranial internal carotid. Mild (<50%) stenosis left extracranial internal carotid. Flow within the right vertebral artery is antegrade. Left vertebral flow is abnormal. Labs: LDL Cholesterol, (0-130) 78 mg/dL HDL Cholesterol, (40-) 57 mg/dL Cholesterol, (200) 148 mg/dL Triglycerides, (0-199) 66 mg/dL Diagnostics: Electrocardiogram Echocardiogram Stress Test Stress Test Nuclear Medicine Chest X-Ray Abdomen Ultrasound Abdomen/Pelvis CT Carotid Duplex Coronary Angiography CT Venous Doppler Study Past Visits: Cardiology Visit Today Assessment and Plan Assessment and Plan (1) CAD (coronary artery disease): Status: Chronic Plan: Patient's most recent CT angiogram from 2024 demonstrated significant calcification noted in the LAD and left circumflex. This was reviewed with patient at her previous office visit. He cardiac catheterization was also discussed, and at that time she opted for medical management. She appears stable at this time, denies any recent symptoms or events. She will continue aspirin 81 mg daily, atorvastatin 40 mg daily, isosorbide 60 mg daily and carvedilol 12.5 mg twice daily. She will continue with aggressive risk factor and lifestyle modifications, as well as monitoring for any concerning symptoms. (2) Nonischemic cardiomyopathy: Status: Chronic Plan: Patient has a history of nonischemic cardiomyopathy. Her most recent echocardiogram from 11/29/2024 demonstrated ejection fraction of 20%. This was reviewed with patient. She appears stable at this time, denies any recent symptoms or events. She will continue Entresto 49-51 mg twice daily, Farxiga 10 mg daily, furosemide 40 mg twice daily, and carvedilol 12.5 mg twice daily. A defibrillator was discussed with patient, and she declines at this time. She will continue to monitor for any concerning symptoms. (3) Chronic systolic congestive heart failure, NYHA class 2: Status: Chronic Plan: See #2. (4) Essential hypertension: Status: Chronic Plan: Patient has a history of hypertension. Her blood pressure is well-controlled atthis time-124/85. She will continue with her current medical therapy, along with monitoring her blood pressures at home.She will notify our office of any persistently elevated or low blood pressure readings. (5) Mitral regurgitation: Status: Chronic Plan: Patient has a history of mitral valve regurgitation. Her echocardiogram from 07/11/2024 demonstratedmoderately severe eccentric mitral valve insufficiency. She appears stable at this time, denies anyrecent symptoms or events. She willcontinue Lasix 40 mg twice daily, along with monitoring for any concerning symptoms. (6) Bilateral carotid artery disease: Status: Chronic Qualifiers: Carotid artery disease type: unspecified Qualified Code(s): I73.9 - Peripheral vascular disease, unspecified Plan: Patient has a history of bilateral carotid artery stenosis. Her most recent carotid duplex ultrasound from 12/06/2023 demonstrated mild less than 50% stenosisbilaterally. This was reviewed with patient. She will continue aspirin 81 mg daily, and atorvastatin 40 mg daily. She will continue to follow with vascular for this. (7) Dyslipidemia: Status: Chronic Plan: Patient has a history of dyslipidemia. Her PCP monitors this. She will continue atorvastatin 40 mg daily, along with aggressive risk factor and lifestyle modifications. A copy of her most recent lipid panel be greatly appreciated for continuity of care. (8) History of stent insertion of renal artery: Status: Chronic Plan: Patient has a history of renal artery stenosis, and stent placement. Her blood pressure is well-controlled at this time. She will continue with her current medical therapy. We will continue to monitor. (9) Weakness: Status: Acute Plan: Patient acknowledges weakness. Would like to obtain lab work to further assess this. Depending on results, further recommendations will be made. Orders: Orders Basic Metabolic Profile (BMP) Today R53.1 - Weakness CBC W/Diff, Automated Today R53.1 - Weakness Thyroid Stim Hormone (TSH) Today R53.1 - Weakness Plan Details Additional Comments: Patient will follow-up in 6 months, or sooner if needed. Thank you for allowing me to participate in the care of your patient. Please donot hesitate to callif any issues arise. This note was generated using a voice recognition system and there may be incorrect words, spelling, or punctuation that were not noted when reviewing theoffice note prior to saving. Portions of this documentation were copied and pasted from previous office visitnotes to provide cohesive continuity of the history. The note has been reviewed,edited, and updated, as necessary. Follow Up: 6 Months (DOSIER OPERATOR/PA) Coding Level of Care Code Est. Level 4 (77317) Diagnoses CAD (coronary artery disease) I25.10 Nonischemic cardiomyopathy I42.8 Chronic systolic congestive heart failure, NYHA class 2 I50.22 Essential hypertension I10 Mitral regurgitation I34.0 Bilateral carotid artery disease, unspecified type I73.9 Carotid artery disease type: unspecified Dyslipidemia E78.5 History of stent insertion of renal artery Z98.890 Weakness R53.1 Additional Codes Intake - The most recent Systolic Blood Pressure reading (HTN, CKD, CAD, DM): Systolic <130mmHg (3074F) (3074F) Intake - The most recent Diastolic Blood Pressure reading (HTN, CKD, CAD, DM): Diastolic 80-89 mmHg (3079F) (3079F) Intake - Is patient in pain?: No (1126F) Intake - Medication Reconciliation completed?: Yes (1160F) SDOH Screening - Does the patient want assistance with any of the above?: No (G0136) ([facility]) Functional Assessment-Yearly - Assistance needed with ADL or use AssistiveDevices?: Yes (1170F) ([facility]) Fall Risk Assessment:Age 65+Yearly - Fall Risk Assessment: no falls in the past year (3288F) (3288F) Coding Level of Care Code Est. Level 4 (68852) Diagnoses CAD (coronary artery disease) I25.10 Nonischemic cardiomyopathy I42.8 Chronic systolic congestive heart failure, NYHA class 2 I50.22 Essential hypertension I10 Mitral regurgitation I34.0 Bilateral carotid artery disease, unspecified type I73.9 Carotid artery disease type: unspecified Dyslipidemia E78.5 History of stent insertion of renal artery Z98.890 Weakness R53.1 Additional Codes Intake - The most recent Systolic Blood Pressure reading (HTN, CKD, CAD, DM): Systolic <130mmHg (3074F) (3074F) Intake - The most recent Diastolic Blood Pressure reading (HTN, CKD, CAD, DM): Diastolic 80-89 mmHg (3079F) (3079F) Intake - Is patient in pain?: No (1126F) Intake - Medication Reconciliation completed?: Yes (1160F) SDOH Screening - Does the patient want assistance with any of the above?: No (G0136) ([facility]) Functional Assessment-Yearly - Assistance needed with ADL or use AssistiveDevices?: Yes (1170F) ([facility]) Fall Risk Assessment:Age 65+Yearly - Fall Risk Assessment: no falls in the past year (3288F) (3288F) Clinical Quality Measures* ([facility]) Functional Assessment-Yearly Functional Assessment Completed: 11/08/25 Assistance needed with ADL or use Assistive Devices?: Yes Does pt use assistive devices?: Yes Cane and Yes Walker Assistive Devices: Yes Cane (Z99.89) and Yes Walker (Z74.09) ([facility]) Fall Risk Assessment:Age 65+Yearly Fall Risk last assessed: 11/08/25 Have you fallen in the past year?: No Number of Falls: 0 Were you injured?: No Do you feel unsteady when standing or walking?: No Do you worry about falling?: No Fall Risk Assessment: no falls in the past year (3288F) 11/08/25 1341 DOSIER OPERATOR DOSIER OPERATOR-C> Date _ Herlinda Ureña DOSIER OPERATOR DOSIER OPERATOR-C Cosigner Signature: Date (if applicable) CC: ~ [facility] [id number] NoteHNO ID: [id number] Author: ALBERTO HERR MD Service: ? Author Type: Physician Type: Progress Notes Filed: 07/26/2025 15:45 Note Text: Subjective Nano Aguilar is a 85 year [...] Lbbb (Left Bundle Branch Block) Atherosclerosis of [place] Coronary Artery of [place] Heart With Stable Angina Pectoris Bilateral Carotid [...] (FLONASE) 50 mcg/actuation nasal spray Use 1 [place] in each nostril once daily. albuterol HFA [...] 1 tablet by mouth once daily. FISH BPS-ZNZCG-5-COENZYME Q10 1,900 MG-640 MG-50 MG/2.5 G ORAL [...] with reduced ejection fraction (HFrEF, <= 40%) ([facility]) - ICD9: 428.22, ICD10: I50.22 (primary diagnosis) - HFrEF <=40 - Compensated - Continue current medications - FUROSEMIDE 40 MG TABLET. Take one(1) tablet two(2) times daily. She was instructed to [facility] - COMPLETE BLOOD COUNT - COMPREHENSIVE METABOLIC PANEL 2. Encounter for immunization - ICD9: V03.89, ICD10: Z23 - INFLUENZA VACCINE, PRSV FREE, (more content not included)...[facility]04-21-2025 Instructions* Patient Instructions* Alberto Herr MD - 01/22/2025 2:50 PM EDT Screening schedule The following prevention plan is [...] review all the medicines you take, even dgpt-kee-ywezjli medicines. As you get older, the way medicines work in your body can change. Some medicines, or combinations of medicines, can make you sleepy or dizzy andcan cause you to fall. 3. Have your [...] conditions. Advance Directive Forms Advanced Directives Forms ([place]) FORMS: https://author.portals.[facility].org/Portals/138/bxhj-quokpy-hsjb-guaio-qa-gwygcyyd.pd f INFORMATIONAL BROCHURE: https://my.[facility].org/-/scassets/files/org/patients-visitors/inform ation/advance-directives.ashx?la=en Advance Directives (non-[place]) FORMS: https://my.[facility].org/patients/information/kfhkklu-xmgkykogz-tedcv/adva nce-directives#forms-tab Please bring completed forms to your next appointment or email them to . Patient Resources How to Get Started Talking with Loved Ones about your Wishes at the End of Life https://theconversationproject.org/wp-content/uploads//ConversationProjec i-ObulqTzktkfeQju-Dgruyww.pdf How to Navigate Conversations with your Care Team around your Preferences [email or web address] documented in this encounterUc Medical Center04-21-2025 NoteHNO ID: [id number] Author: ALBERTO HERR MD Service: ? Author Type: Physician Type: Progress Notes Filed: 01/22/2025 17:37 Note Text: This note was created using Planet Metricsriter. Subjective Nano Aguilar is a 85 year [...] Lbbb (Left Bundle Branch Block) Atherosclerosis of [place] Coronary Artery of [place] Heart With Stable Angina Pectoris Bilateral Carotid [...] (FLONASE) 50 mcg/actuation nasal spray Use 1 [place] in each nostril once daily. albuterol HFA [...] 1 tablet by mouth once daily. FISH GTP-XIZSL-8-COENZYME Q10 1,900 MG-640 MG-50 MG/2.5 G ORAL [...] No edema. Left lower leg: No edema. N (more content not included)...[facility]04-21-2025 History of Present illness Narrative* Alberto Herr MD - 01/22/2025 2:29 PM EDT This note was created using Planet Metricsriter. 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 albuterol HFA [...] 1 tablet by mouth once daily. FISH TWV-KGOSS-2-COENZYME Q10 1,900 MG-640 MG-50 MG/2.5 G ORAL PACKET Take one(1) tablet daily. No current facility-administered medications for this visit. Objective BP 132/70 (BP Site: Left Arm, BP Position: Sitting, BP Cuff Size: Large Adult) Pulse 70 Temp 36.7 C (98 F) (Temporal) Resp 14 Ht 157.5 cm (5' 2) Wt 60.4 kg (133 lb 2.5 oz) SpO2 99% BMI24.35 kg/m Physical Exam Constitutional: General: She is [...] drift. Coordination: Romberg sign negative. Coordination normal. Homzrg-Xmum-Aymdfu Test normal. Rapid alternating movements normal. Gait: [...] Chronic obstructive pulmonary disease, unspecified COPD type (HCC) - ICD9: 496, ICD10: J44.9 Stable. Continue medications. See pulmonary. 6. 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 - ICD9: [...] with reduced ejection fraction (HFrEF, <= 40%) ([facility]) - ICD9: 428.22, ICD10: I50.22 - Compensated - Medication list updated. - ENTRESTO 49 MG-51 MG TABLET - DAPAGLIFLOZIN PROPANEDIOL 10 MG TABLET Alberto Herr MD * Alberto Herr MD - 01/22/2025 2:23 PM EDT Images from the original note were not included. Nano Aguilar is a 85 year old [...] Current care team: Patient Care Team: Alberto Herr MD as PCP - General Brooke Cordoba, ELIGIBILITY CONSULTANT.HIGH REACH OPERATOR as Grad Intern (Internal Medicine) Valentina Camargo MD (Pulmonary) Outside [...] Functional Observation Was the patient's Timed Up & Go test unsteady or >= 12 seconds? No Advance Care Planning Patient was not able to provide a surrogate decision maker or written advance directives Measurements BP 132/70 (BP Site: Left Arm, BP Position: Sitting, BP Cuff Size: Large Adult) Pulse 70 Temp 36.7 C (98 F) (Temporal) Resp 14 Ht 157.5 cm (5' 2) Wt 60.4 kg (133 lb 2.5 oz) SpO2 99% BMI24.35 kg/m Vision Screening: Follows with optometry/ophthalmology Declines visual acuity screen Assessment/Plan Medicare annual wellness visit, subsequent (Z00.00) - Counseled on healthy diet and regular exercise - Fall avoidance information provided - Personalized prevention plan provided documented in this encounterUc Medical Center04-21-2025 NoteHNO ID: [id number] Author: ALBERTO HERR MD Service: ? Author Type: Physician Type: Progress Notes Filed: 01/22/2025 17:37 Note Text: Nano Aguilar is a 85 year old [...] Current care team: Patient Care Team: Alberto Herr MD as PCP - General Brooke Cordoba, ELIGIBILITY CONSULTANT.HIGH REACH OPERATOR as Grad Intern (Internal Medicine) Valentina Camargo MD (Pulmonary) Outside [...] avoidance information provided - Personalized prevention plan provided[facility] Telephone encounter Note* Telephone Encounter - Violeta Infante RN - 01/18/2025 6:44 PM EDT Pt called and is notified of providers message and instructions. Pt voices understanding. Violeta Infante RN [facility]04-17-[facility] Miscellaneous Notes* Telephone Encounter - Violeta Infante RN - 01/18/2025 6:44 PM EDT Pt called and is notified of providers message and instructions. Pt voices understanding. Violeta Infante RN * Telephone Encounter - Alberto Herr MD - 01/18/2025 6:37 PM EDT The following approved medication requests have been transmitted electronically. Requested Prescriptions Signed Prescriptions Disp Refills meclizine (ANTIVERT) 25 mg tab 20 tablet 0 Sig: Take 1 tablet by mouth every 6 hours as needed (for dizziness.). Authorizing Provider: ALBERTO HERR Dramamine is over the counter. Prescription for meclizine sent. Alberto Herr MD * Telephone Encounter - Violeta Infante RN - 01/18/2025 1:43 PM EDT Pt called I and reports she was admitted to the hospital over the weekend for vertigo. She states they were giving her Dramamine for her headache and was asking if provider would call this in to [facility] in [place] for her. Pt states she is still having dizziness and headache. She states she dreadslaying down and closing her eyes. Pt has an appointment with Dr Herr on 01/22/25. Please call and advise. documented in this encounterUc Medical Center04-17-2025 Telephone encounter Note * Telephone Encounter - Alberto Herr MD - 01/18/2025 6:37 PM EDT The following approved medication requests have been transmitted electronically. Requested Prescriptions Signed Prescriptions Disp Refills meclizine (ANTIVERT) 25 mg tab 20 tablet 0 Sig: Take 1 tablet by mouth every 6 hours as needed (for dizziness.). Authorizing Provider: ALBERTO HERR Dramamine is over the counter. Prescription for meclizine sent. Alberto Herr MD [facility]04-[facility] Telephone encounter Note* Telephone Encounter - Violeta Infante RN - 01/18/2025 1:43 PM EDT Pt called I and reports she was admitted to the hospital over the weekend for vertigo. She states they were giving her Dramamine for her headache and was asking if provider would call this in to [facility] in [place] for her. Pt states she is still having dizziness and headache. She states she dreadslaying down and closing her eyes. Pt has an appointment with Dr Herr on 01/22/25. Please call and advise. [facility] Discharge summary Author Miranda Tripathi [facility] Note Date/Time January 14, 2025 12: 05pm [facility] Medical Records Department [address] [place] [address] Instructions for Home/Discharge Instructions 01/14/25 1200 MR#: [id number] Acct: [id number] Name: NANO AGUILAR Rep #:[id number] : 1940 85 From: Miranda Tripathi MD PCP: Dr. Alberto Herr MD Status:A DM CHEMA Discharge Instructions Diet Discharge Diet: - (DASH diet) DC O2, CPAP, BIPAP needs Home O2 Discharge instructions: No Dressing / Incision Discharge Activity: - (Increase activity as tolerated) Follow Up Care Test Results: Test results from this visit will be discussed in further detail at your follow- up appointment, if applicable. Discharge Plan Admission Admit Date/Time: 01/13/25 12:24 Primary Reason for Your Visit: Dizzy feeling Attending Provider: Miranda Tripathi Primary Care Provider: Alberto Herr Instructions Patient Instructions: BPPV, ED Fall Prevention Additional Instructions / Restrictions: -Please call your primary care provider's office upon discharge to schedule a hospital follow up within 1 week. -For any concerning signs or symptoms please call 911 or proceed to the nearest emergency department Discharge Orders/Prescriptions Prescriptions: Continued pantoprazole 20 mg tablet,delayed release (DR/EC) 20 mg PO DAILY albuterol sulfate 90 mcg/actuation HFA aerosol inhaler 2 puff inhalation Q4 PRN (Reason: wheezing) Trelegy Ellipta 100-62.5-25 mcg blister with device 1 ea inhalation DAILY sacubitril-valsartan [Entresto] 49-51 mg tablet 1 tab PO BID Qty: 180 3RF Patient Comments: PT STATES THIS HAS CAUSED HER SOME DIZZINESS. aspirin 81 MG tablet 81 mg PO DAILY@0800 montelukast 10 MG tablet 10 mg PO DAILY loratadine 10 MG tablet 10 mg PO DAILY multivitamin with folic acid 1 TABLET tablet 1 tab PO DAILY isosorbide mononitrate 60 mg tablet extended release 24 hr 60 mg PO DAILY dapagliflozin propanediol [Farxiga] 10 mg tablet 10 mg PO DAILY Patient Comments: PT STATES THIS HAS CAUSED HER SOME DIZZINESS. calcium carbonate-vitamin D3 600 mg-10 mcg (400 unit) tablet 2 tab PO DAILY cholecalciferol (vitamin D3) 10 mcg (400 unit) tablet,chewable 10 mcg PO DAILY atorvastatin 40 mg tablet 40 mg PO DAILY furosemide [Lasix] 40 mg tablet 40 mg PO BID Qty: 60 0RF carvedilol 12.5 mg tablet 12.5 mg PO BID Qty: 180 4RF potassium chloride 20 mEq tablet extended release 20 meq PO DAILY Qty: 90 3RF nitroglycerin 0.4 mg tablet, sublingual See Rx Instructions .ROUTE .COMPLEX Qty: 25 3RF Dose Instruction: 0.4 MG SUBLINGUAL EVERY 5-15M NEEDED FOR CHEST PAIN Rx Instructions: 0.4 MG SUBLINGUAL EVERY 5-15M NEEDED FOR CHEST PAIN Discontinued hydrocodone-acetaminophen 5-325 mg tablet 1 tab PO TID PRN (Reason: pain) Referrals / Follow Up: Alberto Herr MD [Primary Care Provider] - Within 1 Week Disposition Disposition (needs filled in before D/C Order can be placed): Home, Self Care 01/14/25 1205<Electronically signed by Miranda Tripathi MD>Miranda Tripathi MD CC: Dr. Alberto Herr MD ~ Signed [facility] Work Phone: [phone]) 813-386704-13-2025 Discharge summary [facility] Medical Records Department [address] [place] [address] Instructions for Home/Discharge Instructions 01/14/25 1200 MR#: [id number] Acct: [id number] Name: NANO AGUILAR Rep #:[id number] : 1940 85 From: Miranda Tripathi MD PCP: Dr. Alberto Herr MD Status:A DM CHEMA Discharge Instructions Diet Discharge Diet: - (DASH diet) DC O2, CPAP, BIPAP needs Home O2 Discharge instructions: No Dressing / Incision Discharge Activity: - (Increase activity as tolerated) Follow Up Care Test Results: Test results from this visit will be discussed in further detail at your follow- up appointment, if applicable. Discharge Plan Admission Admit Date/Time: 01/13/25 12:24 Primary Reason for Your Visit: Dizzy feeling Attending Provider: Miranda Tripathi Primary Care Provider: Alberto Herr Instructions Patient Instructions: BPPV, ED Fall Prevention Additional Instructions / Restrictions: -Please call your primary care provider's office upon discharge to schedule a hospital follow up within 1 week. -For any concerning signs or symptoms please call 911 or proceed to the nearest emergency department Discharge Orders/Prescriptions Prescriptions: Continued pantoprazole 20 mg tablet,delayed release (DR/EC) 20 mg PO DAILY albuterol sulfate 90 mcg/actuation HFA aerosol inhaler 2 puff inhalation Q4 PRN (Reason: wheezing) Trelegy Ellipta 100-62.5-25 mcg blister with device 1 ea inhalation DAILY sacubitril-valsartan [Entresto] 49-51 mg tablet 1 tab PO BID Qty: 180 3RF Patient Comments: PT STATES THIS HAS CAUSED HER SOME DIZZINESS. aspirin 81 MG tablet 81 mg PO DAILY@0800 montelukast 10 MG tablet 10 mg PO DAILY loratadine 10 MG tablet 10 mg PO DAILY multivitamin with folic acid 1 TABLET tablet 1 tab PO DAILY isosorbide mononitrate 60 mg tablet extended release 24 hr 60 mg PO DAILY dapagliflozin propanediol [Farxiga] 10 mg tablet 10 mg PO DAILY Patient Comments: PT STATES THIS HAS CAUSED HER SOME DIZZINESS. calcium carbonate-vitamin D3 600 mg-10 mcg (400 unit) tablet 2 tab PO DAILY cholecalciferol (vitamin D3) 10 mcg (400 unit) tablet,chewable 10 mcg PO DAILY atorvastatin 40 mg tablet 40 mg PO DAILY furosemide [Lasix] 40 mg tablet 40 mg PO BID Qty: 60 0RF carvedilol 12.5 mg tablet 12.5 mg PO BID Qty: 180 4RF potassium chloride 20 mEq tablet extended release 20 meq PO DAILY Qty: 90 3RF nitroglycerin 0.4 mg tablet, sublingual See Rx Instructions .ROUTE .COMPLEX Qty: 25 3RF Dose Instruction: 0.4 MG SUBLINGUAL EVERY 5-15M NEEDED FOR CHEST PAIN Rx Instructions: 0.4 MG SUBLINGUAL EVERY 5-15M NEEDED FOR CHEST PAIN Discontinued hydrocodone-acetaminophen 5-325 mg tablet 1 tab PO TID PRN (Reason: pain) Referrals / Follow Up: Alberto Herr MD [Primary Care Provider] - Within 1 Week Disposition Disposition (needs filled in before D/C Order can be placed): Home, Self Care 01/14/25 1205Miranda Tripathi MD CC: Dr. Alberto Herr MD ~ Signed [facility]04-13-2025 [facility] Medical Records Department [address] [place] [id number] Discharge Summary 01/14/251204 MR#: [id number] Acct: [id number] Name: NANO AGUILAR Rep #: [id number] : 1940 85 From: Miranda Tripathi MD PCP: Dr. Alberto Herr MD Status:DIS CHEMA Location: [place] [address] Providers Date of Admission: 01/13/25 Date of Discharge: 01/14/25 Primary Care Physician: Dr. Alberto Herr MD Reason For Visit: DIZZINESS/VERTIGO Diagnosis Discharge Diagnosis (1) Dizziness: Status: Acute Code(s): R42 - Dizziness and giddiness Plan # Dizziness/peripheral vertigo # Elevated troponin- suspected secondary to pts htn on presentation # History of heart failure with reduced ejection fraction # History of coronary artery disease #Hx COPD #GERD Medications at Discharge Home Medications aspirin 81 mg tablet,delayed release 81 mg PO DAILY@0800 heart health 09/09/18 loratadine 10 mg tablet 10 mg PO DAILY allergies 09/09/18 montelukast 10 mg tablet 10 mg PO DAILY allergies 09/09/18 multivitamin with folic acid 400 mcg tablet 1 tab PO DAILY vitamin 09/09/18 pantoprazole 20 mg tablet,delayed release 20 mg PO DAILY reflux 08/08/19 carvedilol 12.5 mg tablet 12.5 mg PO BID blood pressure #180 tabs 12/24/23 atorvastatin 40 mg tablet 40 mg PO DAILY cholesterol 07/11/24 cholecalciferol (vitamin D3) 10 mcg (400 unit) chewable tablet 10 mcg PO DAILY vitamin 07/11/24 potassium chloride 20 mEq tablet,extended release 20 meq PO DAILY supplement #90 tabs 08/08/24 albuterol sulfate 90 mcg/actuation aerosol inhaler 2 puff inhalation Q4 PRN wheezing 11/16/24 fluticasone fur. 100 mcg-umeclid 62.5 mcg-vilant 25 mcg inhalat.powder (Trelegy Ellipta) 1 ea inhalation DAILY breathing 11/16/24 sacubitril 49 mg-valsartan 51 mg tablet (Entresto) 1 tab PO BID heart #180 tabs 11/16/24 nitroglycerin 0.4 mg sublingual tablet See Rx Instructions .Route .COMPLEX chest pain #25 tabs 11/28/24 furosemide 40 mg tablet (Lasix) 40 mg PO BID diuretic #60 tabs 12/01/24 calcium 600 mg (as carbonate)-vitamin D3 10 mcg (400 unit) tablet 2 tab PO DAILY VITAMIN 01/13/25 dapagliflozin propanediol 10 mg tablet (Farxiga) 10 mg PO DAILY diabetes 01/13/25 isosorbide mononitrate 60 mg tablet,extended release 24 hr 60 mg PO DAILY heart 01/13/25 Hospital Course Summary of Care Provided Minutes Spent on Discharge: 24 Hospital Course: Per HPI: NANO AGUILAR, is a 85 F with a history of coronary artery disease, hypertension, GERD, COPD, CHF who presented to [facility] ED/09/27 with dizziness since 130 this morning. Patient got up to go to the bathroom and when she went back to her bed and laid down and turned over she began to feel like the room was spinning and like the bed was moving, due to this persisting patient came to the ED. In the ED blood pressure initially 180/79, heart rate 68 patient 99% on room air with a temperature of 97.6. Patient's lab workup fairly benign, EKG read demonstrated a left bundle branch block that is not new, UA unremarkable, CTA head and neck with no LVO, did have some left subclavian artery stenosis and biapical emphysema, chest x-ray with mild cardiomegaly but otherwise no acute abnormality. Patient was given Valium and Toradol for a slight occipital headache but due to persistent symptoms hospitalist contacted for admission for supportive care. Patient evaluated at bedside and reports that she did wake up around 1:30 in the morning, was able to ambulate to the bathroom and back without any symptoms and then she laid down and reports after she turned to her side she had the sudden symptoms and she did feel the room spinning in the bed moving, was also nauseous several times with no vomiting. She notes that symptoms have slowly improved and if further improved in the ED though still there, does not feel quite normal when she looks straight up but symptoms are reproduced when she looks her head to the left, again is improving slowly. Does note that for a while patient will get some chest pressure that lasts about half an hour and has no associations with anything, not having any at the time of exam. Does report she also gets some left arm aching from her left shoulder to her left elbow and notes that arm is a little bit tender to the touch when that happens it is worse with movement, does not sound that this is associated with her chest pressure at all and seems to be a separate process, denies any falls or other acute complaints INTERVAL HISTORY: Patient was admitted and supportive care provided, in the a.m. she worked with physical therapy, felt a little bit weak but overall better and all of her dizzy/vertiginous symptoms resolved, high suspicion that this was peripheral vertigo, patient and family comfortable discharging and following up with PCP with return precautions Physical Exam Narrati (more content not included)...[facility]04-12-2025 Discharge summary Author Garret Ayala [facility] Note Date/Time January 13, 2025 3:2 4pm [facility] Medical Records Department [address] [place] [address] Emergency Department Summary 01/13/25 MR#: [id number] Acct: [id number] Name: NANO AGUILAR Rep #:[id number] : 1940 85 From: Garret Trivedi PCP: Dr. Alberto Herr MD Status:A DM CHEMA Location: [place] [address] HPI History of Present Illness Chief Complaint: Dizziness Informant: patient and family (Son) Narrative Narrative: 85-year-old female presenting to the emergency room with a chief complaint of dizziness. Patient states that around 0130 hrs. she got up to use the bathroom and could not get out of bed because she was very dizzy. She states that the room felt like it was spinning. She also uses the words lightheadedness. She states that she laid there all night and texted her son a couple times that he did not get the text until he awoke this morning. EMS was called. She stated that she had some chest discomfort prehospital EKG shows a left bundle branch block which is old. Patient states that at some point after her symptoms began she developed an occipital headache. She notes some mild nausea but no vomiting. She denies any urinary symptoms. She has a history of CHF has been on increased Lasix dosing over the past month since she was hospitalized. She is not anticoagulated. [facility] Medical History COPD exacerbation CHF exacerbation Acute hypoxic respiratory failure Osteoarthritis Osteoporosis Non-smoker Irregular heart beat Hypertension Congestive heart failure (CHF) Alcohol abuse Use of cane as ambulatory aid Mitral regurgitation CAD (coronary artery disease) Wears hearing aid Wears glasses Alcohol use Arthritis High cholesterol Excessive bleeding History of recent fall Back pain Dietary restriction Gastric reflux Former smoker Emphysema, unspecified COPD (chronic obstructive pulmonary disease) Asthma Shortness of breath on exertion Leg cramps History of pain when walking History of echocardiogram History of stress test Cardiology follow-up encounter HLD (hyperlipidemia) Valvular heart disease Chest pressure Hepatic cyst Bilateral carotid artery disease Atherosclerotic heart disease of [place] coronary artery without angina pectoris LBBB (left bundle branch block) Renovascular hypertension Essential hypertension GERD (gastroesophageal reflux disease) Nonischemic cardiomyopathy Dyslipidemia Asthma Chest pain Home Medications ?Medication ?Instructions ?Recorded ?Last Taken ?Type aspirin 81 mg tablet,delayed 81 mg PO DAILY@0800 09/0901/12/25 History release loratadine 10 mg tablet 10 mg PO DAILY allergies 04/2001/12/25 History montelukast 10 mg tablet 10 mg PO DAILY allergies 04/2001/12/25 History multivitamin with folic acid 400 1 tab PO DAILY vitami n 09/09/18 01/12/25 History mcg tablet pantoprazole 20 mg tablet,delayed 20 mg PO DAILY reflu x 08/08/19 01/12/25 History release hydrocodone-acetaminophen 5-325mg 1 tab PO TID PRN amy n 06/19/22 11/28/24 History 5mg-325mg carvedilol 12.5 mg tablet 12.5 mg PO BID blood pressur e #180 12/24/23 01/12/25 Rx tabs atorvastatin 40 mg tablet 40 mg PO DAILY cholesterol 1 01/12/25 History cholecalciferol (vitamin D3) 10 10 mcg PO DAILY vitami n 07/11/24 01/12/25 History mcg (400 unit) chewable tablet potassium chloride 20 mEq 20 meq PO DAILY #90 tabs 02/2401/12/25 Rx tablet,extended release albuterol sulfate 90 mcg/actuation 2 puff inhalation Q 4 PRN wheezing 11/16/24 11/29/24 08:00 History aerosol inhaler 2 puff fluticasone fur. 100 mcg-umeclid 1 ea inhalation DAILY 11/16/24 01/12/25 History 62.5 mcg-vilant 25 mcg inhalat.powder (Trelegy Ellipta) sacubitril 49 mg-valsartan 51 mg 1 tab PO BID #180 tab s 11/16/24 11/28/24 Rx tablet (Entresto) nitroglycerin 0.4 mg sublingual See Rx Instructions .R oute 11/28/24 11/28/24 Rx tablet .COMPLEX chest pain #25 tabs furosemide 40 mg tablet (Lasix) 40 mg PO BID #60 tabs 12/01/24 01/12/25 Rx calcium 600 mg (as 2 tab PO DAILY VITAMIN 01/1301/12/25 History carbonate)-vitamin D3 10 mcg (400 unit) tablet dapagliflozin propanediol 10 mg 10 mg PO DAILY 5 Unknown History tablet (Farxiga) isosorbide mononitrate 60 mg 60 mg PO DAILY 01/13/25 0 01/12/25 History tablet,extended release 24 hr Allergy/AdvReac Type Severity Reaction Status Date / Time adhesive tape AdvReac Itching Verified 01/13/25 07:52 latex AdvReac Rash Verified 01/13/25 07:52 nabumetone (From Relafen) AdvReac Nausea Verified 01/13/25 07:52 ramipril (From Altace) AdvReac Other Verified 01/13/25 07:52 sulfamethoxazole (From AdvReac Nausea Verified 01/13/25 07:52 Bactrim) trimethoprim (From Bactrim) AdvReac Nausea Verified 01/13/25 07:52 Surgical History History of cardiac catheterization Hx of bilateral cataract extraction Hx of colonoscopy History of breast biopsy History of tonsillectomy Social History Smoking Status: Former smoker how long ago did patient quit smokin alcohol intake: current alcohol intake frequency: a few times a week Alcohol type: wine substance use type: does not use caffeine: Yes Type: coffee Number of servings: 2 ROS ROS ED Constitutional Constitutional ED: Denies chills, fever(s) or weight loss Eyes Eyes: Denies change in vision or diplopia ENT ENT ED: Denies ear pain, rhinorrhea or sore throat Cardiovascular Cardiovascular: Reports chest pain; Denies orthopnea, palpitations or racing heartbeat Respiratory/Chest Respiratory/Chest: Denies cough, dyspnea or orthopnea Gastrointestinal Gastrointestinal: Reports nausea; Denies abdominal pain, diarrhea or vomiting Genitourinary Genitourinary ED: Denies dysuria, hematuria or urinary frequency Musculoskeletal Musculoskeletal: Denies arthralgias or myalgias Integumentary Denies abscess or rash Neurologic Neurologic: Reports headache(s) and other Details: Dizziness/lightheadedness ; Denies paresthesias or weakness Psychiatric Psychiatric: Denies anxiety, depression, suicidal ideation or suicidal thoughts Endocrine Endocrinology: Denies polydipsia, polyphagia or polyuria Allergic/Immunologic Allergic/Immunologic ED: Denies mouth swelling, tongue swelling or urticaria EXAM Physical Exam Const Vital Signs: 01/13/25 07:46 01/13/25 07:52 01/13/25 08:30 Temperature 97.6 F L Temperature Source Oral Pulse Rate 68 63 Respiratory Rate 16 12 Blood Pressure 180/79 H 161/61 H Blood Pressure Mean 112 90 Pulse Ox 99 96 Oxygen Delivery Method Room Air 01/13/25 08:45 01/13/25 09:00 01/13/25 09:00 Temperature Temperature Source Pulse Rate 78 71 74 Respiratory Rate 19 H 19 H 14 Blood Pressure 155/68 H 172/69 H 172/65 H Blood Pressure Mean 97 103 97 Pulse Ox 98 98 94 Oxygen Delivery Method Room Air Room Air 01/13/25 09:30 01/13/25 10:00 01/13/25 10:30 Temperature Temperature Source Pulse Rate 70 70 68 Respiratory Rate 12 11 L 11 L Blood Pressure 154/59 H 158/65 H 146/61 H Blood Pressure Mean 87 91 83 Pulse Ox 94 95 Oxygen Delivery Method 01/13/25 10:48 01/13/25 11:00 Temperature 97.8 F Temperature Source Pulse Rate 65 66 Respiratory Rate 11 L 14 Blood Pressure 146/68 H 150/61 H Blood Pressure Mean 94 86 Pulse Ox 93 95 Oxygen Delivery Method Positive well nourished and well developed General Appearance ED: well developed HEENT Reports normocephalic, head/scalp atraumatic and moist mucous membranes HEENT Narrative: There is no nystagmus Eyes PERRL and EOMs intact bilaterally Neck no lymphadenopathy, supple and no JVD Resp normal respiratory effort and clear to auscultation bilaterally Cardio regular rate, regular rhythm and no murmurs GI normal to inspection, nondistended, normoactive bowel sounds and non-tender Palpation: soft Back/Spine no CVA tenderness and normal ROM Extremity normal to inspection General Extremety ED: Negative for edema General Extremity: Negative for edema Neuro oriented x3, CN's II-XII intact bilaterally and no sensory deficits noted Neuro Narrative: Patient complains of worsening dizziness symptoms with any movement of her head either left or right or sitting up or laying down. Sensorium / Orientation: alert Sensory Exam: No sensory level loss detected Motor Exam: general weakness Psych Psych Narrative: Very flat affect Mood & Affect: anxious; Negative for tearful Skin no rashes or lesions noted and no wounds MDM MDM MDM Narrative Medical decision making narrative: Differential diagnosis includes but not limited to dehydration electrolyte abnormalities acute kidney injury ischemic stroke peripheral vertigo vestibular migraine labyrinthitis EKG shows a sinus rhythm with first-degree AV block with left bundle branch block with a ventricular rate of 70 bpm. CTA head and neck does not demonstrateLVO or obvious infarct. Basic blood work shows a white count of 6.9 hemoglobin 12.8. BUN of 20 creatinine 0.8. Troponins 27 and 26. Urinalysis shows no obvious infection. My independent interpretation of the chest x-ray is no acuteprocess. Clinically I think this is more of a positional vertigo possible vestibular migraine/labyrinthitis. Patient received a dose of Toradol and diazepam. She continues to note that she is unable to ambulate due to her dizziness. I will speak with the hospitalist regarding admission. History & Record Review Discussion w/independent historian: EMS personnel, Patient and Family Lab Data Attestation: I reviewed the patient's lab results. Labs: Laboratory Results - last 24 hr 01/13/25 01/13/25 01/13/25 07:48 08:14 09:45 WBC 6.9 RBC 3.68 L Hgb 12.8 Hct 36.9 L MCV 100.3 H MCH 34.8 H MCHC 34.7 RDW Std Deviation 46.2 H RDW Coeff of Isidra 12.5 Plt Count 176 MPV 9.4 Immature Gran % (Auto) 0.400 Neut % (Auto) 69.0 Lymph % (Auto) 20.4 Stanley % (Auto) 9.2 Eos % (Auto) 0.6 Baso % (Auto) 0.4 Absolute Neuts (auto) 4.7 Absolute Lymphs (auto) 1.40 Nucleated RBC % 0 Sodium 134 Potassium 4.0 Chloride 96 L Carbon Dioxide 26.7 Anion Gap 11 BUN 20 H Creatinine 0.80 Estim Creat Clear Calc 44.58 L Est GFR (MDRD) Non-Af 71 BUN/Creatinine Ratio 24.3 H Glucose 105 H Calcium 10.1 Troponin T High Sens 27 H Troponin T Hi Sens 2 Hr 26 H NT pro BNP II 1025 Urine Color Yellow Urine Clarity Clear Urine pH 8.0 Ur Specific Baxter 1.010 Urine Protein 15 H Urine Glucose (UA) Normal Urine Ketones Negative Urine Occult Blood Negative Urine Nitrite Negative Urine Bilirubin Negative Urine Urobilinogen Normal Ur Leukocyte Esterase Negative Urine RBC 0 SEEN Urine WBC 0-5 SEEN Ur Squamous Epith Cells 0-5 SEEN Urine Bacteria 0 SEEN Urine Mucus 0 SEEN Radiography Diagnostic Testing: Clinical Impression(s) from Imaging Studies Chest X-Ray 01/13/25 08:45 IMPRESSION: Mild cardiomegaly. Reading Location: [id number] Head/Neck CTA 01/13/25 08:45 IMPRESSION: CT head: 1. No acute intracranial finding. 2. Findings of chronic microvascular ischemic changes and age-related changes. CTA: 1. No large vessel occlusion, aneurysm or AVM. 2. 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 3. Biapical emphysema. Reading Location: [facility] EKG Initial EKG: Attestation: I personally reviewed and interpreted this EKG as follows: Comments: Sinus rhythm first-degree AV block left bundle branch block noted. Ventricular rate of 70 bpm Management Discussion w/another healthcare provider: Hospitalist Discharge Plan Triage Chief Complaint: Dizziness ED Provider: Garret Ayala Dx/Rx/DC Orders Prescriptions: No Action pantoprazole 20 mg tablet,delayed release (DR/EC) 20 mg PO DAILY hydrocodone-acetaminophen 5-325 mg tablet 1 tab PO TID PRN (Reason: pain) albuterol sulfate 90 mcg/actuation HFA aerosol inhaler 2 puff inhalation Q4 PRN (Reason: wheezing) Trelegy Ellipta 100-62.5-25 mcg blister with device 1 ea inhalation DAILY sacubitril-valsartan [Entresto] 49-51 mg tablet 1 tab PO BID Qty: 180 3RF Patient Comments: PT STATES THIS HAS CAUSED HER SOME DIZZINESS. aspirin 81 MG tablet 81 mg PO DAILY@0800 montelukast 10 MG tablet 10 mg PO DAILY loratadine 10 MG tablet 10 mg PO DAILY multivitamin with folic acid 1 TABLET tablet 1 tab PO DAILY isosorbide mononitrate 60 mg tablet extended release 24 hr 60 mg PO DAILY dapagliflozin propanediol [Farxiga] 10 mg tablet 10 mg PO DAILY Patient Comments: PT STATES THIS HAS CAUSED HER SOME DIZZINESS. calcium carbonate-vitamin D3 600 mg-10 mcg (400 unit) tablet 2 tab PO DAILY cholecalciferol (vitamin D3) 10 mcg (400 unit) tablet,chewable 10 mcg PO DAILY atorvastatin 40 mg tablet 40 mg PO DAILY furosemide [Lasix] 40 mg tablet 40 mg PO BID Qty: 60 0RF carvedilol 12.5 mg tablet 12.5 mg PO BID Qty: 180 4RF potassium chloride 20 mEq tablet extended release 20 meq PO DAILY Qty: 90 3RF nitroglycerin 0.4 mg tablet, sublingual See Rx Instructions .ROUTE .COMPLEX Qty: 25 3RF Dose Instruction: 0.4 MG SUBLINGUAL EVERY 5-15M NEEDED FOR CHEST PAIN Rx Instructions: 0.4 MG SUBLINGUAL EVERY 5-15M NEEDED FOR CHEST PAIN Primary Care Provider: Alberto Herr Referrals: Alberto Herr MD [Primary Care Provider] - Print Language: Tuvaluan NIHSS NIHSS 1a. Level of Consciousness: Alert; keenly responsive 1b. LOC Questions: Answers BOTH questions correctly. 1c. LOC Commands: Performs both tasks correctly. 2. Best Gaze: Normal 3. Visual: No visual loss 4. Facial Palsy: Normal symmetrical movements 5a. Left Arm: No drift; arm holds 90 (or 45) degrees for full 10 seconds 5b. Right Arm: No drift; arm holds 90 (or 45) degrees for full 10 seconds 6a. Left Leg: No drift; leg holds 30-degree position for full 5 seconds 6b. Right Leg: No drift; leg holds 30-degree position for full 5 seconds 7. Limb Ataxia: Absent 8. Sensory: Normal; no sensory loss 9. Best Language: No aphasia; normal 10. Dysarthria: Normal 11. Extinction and Inattention: No abnormality Total: 0 What to do if you have Problems For any increased pain, shortness of breath, bleeding, nausea or vomiting, chestpain, or any unexpected problems, contact your Primary Care Provider. Call [facility] ([phone]) or report to the closest Emergency Room. Call 911 if necessary. 01/13/25 1524 <Electronically signed by Garret Ayala DO> Cosigner Signature (if applicable): CC: Dr. Alberto Herr MD ~ Signed [facility] Work Phone: [phone] 311-680804-12-2025 Discharge summary [facility] Medical Records Department [address] [place] [id number] Emergency Department Summary 01/13/25 MR#: [id number] Acct: [id number] Name: NANO AGUILAR Rep #:[id number] : 1940 85 From: Garret Trivedi PCP: Dr. Alberto Herr MD Status:A DM CHEMA Location: [place] [address] HPI History of Present Illness Chief Complaint: Dizziness Informant: patient and family (Son) Narrative Narrative: 85-year-old female presenting to the emergency room with a chief complaint of dizziness. Patient states that around 0130 hrs. she got up to use the bathroom and could not get out of bed because she was very dizzy. She states that the room felt like it was spinning. She also uses the words lightheadedness. She states that she laid there all night and texted her son a couple times that he did not get the text until he awoke this morning. EMS was called. She stated that she had some chest discomfort prehospital EKG shows a left bundle branch block which is old. Patient states that at some point after her symptoms began she developed an occipital headache. She notes some mild nausea but no vomiting. She denies any urinary symptoms. She has a history of CHF has been on increased Lasix dosing over the past month since she was hospitalized. She is not anticoagulated. [facility] Medical History COPD exacerbation CHF exacerbation Acute hypoxic respiratory failure Osteoarthritis Osteoporosis Non-smoker Irregular heart beat Hypertension Congestive heart failure (CHF) Alcohol abuse Use of cane as ambulatory aid Mitral regurgitation CAD (coronary artery disease) Wears hearing aid Wears glasses Alcohol use Arthritis High cholesterol Excessive bleeding History of recent fall Back pain Dietary restriction Gastric reflux Former smoker Emphysema, unspecified COPD (chronic obstructive pulmonary disease) Asthma Shortness of breath on exertion Leg cramps History of pain when walking History of echocardiogram History of stress test Cardiology follow-up encounter HLD (hyperlipidemia) Valvular heart disease Chest pressure Hepatic cyst Bilateral carotid artery disease Atherosclerotic heart disease of [place] coronary artery without angina pectoris LBBB (left bundle branch block) Renovascular hypertension Essential hypertension GERD (gastroesophageal reflux disease) Nonischemic cardiomyopathy Dyslipidemia Asthma Chest pain Home Medications ?Medication ?Instructions ?Recorded ?Last Taken ?Type aspirin 81 mg tablet,delayed 81 mg PO DAILY@0800 09/0901/12/25 History release loratadine 10 mg tablet 10 mg PO DAILY allergies 04/2001/12/25 History montelukast 10 mg tablet 10 mg PO DAILY allergies 04/2001/12/25 History multivitamin with folic acid 400 1 tab PO DAILY vitami n 09/09/18 01/12/25 History mcg tablet pantoprazole 20 mg tablet,delayed 20 mg PO DAILY reflu x 08/08/19 01/12/25 History release hydrocodone-acetaminophen 5-325mg 1 tab PO TID PRN amy n 06/19/22 11/28/24 History 5mg-325mg carvedilol 12.5 mg tablet 12.5 mg PO BID blood pressur e #180 12/24/23 01/12/25 Rx tabs atorvastatin 40 mg tablet 40 mg PO DAILY cholesterol 1 01/12/25 History cholecalciferol (vitamin D3) 10 10 mcg PO DAILY vitami n 07/11/24 01/12/25 History mcg (400 unit) chewable tablet potassium chloride 20 mEq 20 meq PO DAILY #90 tabs 02/2401/12/25 Rx tablet,extended release albuterol sulfate 90 mcg/actuation 2 puff inhalation Q 4 PRN wheezing 11/16/24 11/29/24 08:00 History aerosol inhaler 2 puff fluticasone fur. 100 mcg-umeclid 1 ea inhalation DAILY 11/16/24 01/12/25 History 62.5 mcg-vilant 25 mcg inhalat.powder (Trelegy Ellipta) sacubitril 49 mg-valsartan 51 mg 1 tab PO BID #180 tab s 11/16/24 11/28/24 Rx tablet (Entresto) nitroglycerin 0.4 mg sublingual See Rx Instructions .R oute 11/28/24 11/28/24 Rx tablet .COMPLEX chest pain #25 tabs furosemide 40 mg tablet (Lasix) 40 mg PO BID #60 tabs 12/01/24 01/12/25 Rx calcium 600 mg (as 2 tab PO DAILY VITAMIN 01/1301/12/25 History carbonate)-vitamin D3 10 mcg (400 unit) tablet dapagliflozin propanediol 10 mg 10 mg PO DAILY 5 Unknown History tablet (Farxiga) isosorbide mononitrate 60 mg 60 mg PO DAILY 01/13/25 0 01/12/25 History tablet,extended release 24 hr Allergy/AdvReac Type Severity Reaction Status Date / Time adhesive tape AdvReac Itching Verified 01/13/25 07:52 latex AdvReac Rash Verified 01/13/25 07:52 nabumetone (From Relafen) AdvReac Nausea Verified 01/13/25 07:52 ramipril (From Altace) AdvReac Other Verified 01/13/25 07:52 sulfamethoxazole (From AdvReac Nausea Verified 01/13/25 07:52 Bactrim) trimethoprim (From Bactrim) AdvReac Nausea Verified 01/13/25 07:52 Surgical History History of cardiac catheterization Hx of bilateral cataract extraction Hx of colonoscopy History of breast biopsy History of tonsillectomy Social History Smoking Status: Former smoker how long ago did patient quit smokin alcohol intake: current alcohol intake frequency: a few times a week Alcohol type: wine substance use type: does not use caffeine: Yes Type: coffee Number of servings: 2 ROS ROS ED Constitutional Constitutional ED: Denies chills, fever(s) or weight loss Eyes Eyes: Denies change in vision or diplopia ENT ENT ED: Denies ear pain, rhinorrhea or sore throat Cardiovascular Cardiovascular: Reports chest pain; Denies orthopnea, palpitations or racing heartbeat Respiratory/Chest Respiratory/Chest: Denies cough, dyspnea or orthopnea Gastrointestinal Gastrointestinal: Reports nausea; Denies abdominal pain, diarrhea or vomiting Genitourinary Genitourinary ED: Denies dysuria, hematuria or urinary frequency Musculoskeletal Musculoskeletal: Denies arthralgias or myalgias Integumentary Denies abscess or rash Neurologic Neurologic: Reports headache(s) and other Details: Dizziness/lightheadedness ; Denies paresthesias or weakness Psychiatric Psychiatric: Denies anxiety, depression, suicidal ideation or suicidal thoughts Endocrine Endocrinology: Denies polydipsia, polyphagia or polyuria Allergic/Immunologic Allergic/Immunologic ED: Denies mouth swelling, tongue swelling or urticaria EXAM Physical Exam Const Vital Signs: 01/13/25 07:46 01/13/25 07:52 01/13/25 08:30 Temperature 97.6 F L Temperature Source Oral Pulse Rate 68 63 Respiratory Rate 16 12 Blood Pressure 180/79 H 161/61 H Blood Pressure Mean 112 90 Pulse Ox 99 96 Oxygen Delivery Method Room Air 01/13/25 08:45 01/13/25 09:00 01/13/25 09:00 Temperature Temperature Source Pulse Rate 78 71 74 Respiratory Rate 19 H 19 H 14 Blood Pressure 155/68 H 172/69 H 172/65 H Blood Pressure Mean 97 103 97 Pulse Ox 98 98 94 Oxygen Delivery Method Room Air Room Air 01/13/25 09:30 01/13/25 10:00 01/13/25 10:30 Temperature Temperature Source Pulse Rate 70 70 68 Respiratory Rate 12 11 L 11 L Blood Pressure 154/59 H 158/65 H 146/61 H Blood Pressure Mean 87 91 83 Pulse Ox 94 95 Oxygen Delivery Method 01/13/25 10:48 01/13/25 11:00 Temperature 97.8 F Temperature Source Pulse Rate 65 66 Respiratory Rate 11 L 14 Blood Pressure 146/68 H 150/61 H Blood Pressure Mean 94 86 Pulse Ox 93 95 Oxygen Delivery Method Positive well nourished and well developed General Appearance ED: well developed HEENT Reports normocephalic, head/scalp atraumatic and moist mucous membranes HEENT Narrative: There is no nystagmus Eyes PERRL and EOMs intact bilaterally Neck no lymphadenopathy, supple and no JVD Resp normal respiratory effort and clear to auscultation bilaterally Cardio regular rate, regular rhythm and no murmurs GI normal to inspection, nondistended, normoactive bowel sounds and non-tender Palpation: soft Back/Spine no CVA tenderness and normal ROM Extremity normal to inspection General Extremety ED: Negative for edema General Extremity: Negative for edema Neuro oriented x3, CN's II-XII intact bilaterally and no sensory deficits noted Neuro Narrative: Patient complains of worsening dizziness symptoms with any movement of her head either left or right or sitting up or laying down. Sensorium / Orientation: alert Sensory Exam: No sensory level loss detected Motor Exam: general weakness Psych Psych Narrative: Very flat affect Mood & Affect: anxious; Negative for tearful Skin no rashes or lesions noted and no wounds MDM MDM MDM Narrative Medical decision making narrative: Differential diagnosis includes but not limited to dehydration electrolyte abnormalities acute kidney injury ischemic stroke peripheral vertigo vestibular migraine labyrinthitis EKG shows a sinus rhythm with first-degree AV block with left bundle branch block with a ventricular rate of 70 bpm. CTA head and neck does not demonstrateLVO or obvious infarct. Basic blood work shows a white count of 6.9 hemoglobin 12.8. BUN of 20 creatinine 0.8. Troponins 27 and 26. Urinalysis shows no obvious infection. My independent interpretation of the chest x-ray is no acuteprocess. Clinically I think this is more of a positional vertigo possible vestibular migraine/labyrinthitis.Patient received a dose of Toradol and diazepam. She continues to note that she is unable to ambulate due to her dizziness. I will speak with the hospitalist regarding admission. History & Record Review Discussion w/independent historian: EMS personnel, Patient and Family Lab Data Attestation: I reviewed the patient's lab results. Labs: Laboratory Results - last 24 hr 01/13/25 01/13/25 01/13/25 07:48 08:14 09:45 WBC 6.9 RBC 3.68 L Hgb 12.8 Hct 36.9 L MCV 100.3 H MCH 34.8 H MCHC 34.7 RDW Std Deviation 46.2 H RDW Coeff of Isidra 12.5 Plt Count 176 MPV 9.4 Immature Gran % (Auto) 0.400 Neut % (Auto) 69.0 Lymph % (Auto) 20.4 Stanley % (Auto) 9.2 Eos % (Auto) 0.6 Baso % (Auto) 0.4 Absolute Neuts (auto) 4.7 Absolute Lymphs (auto) 1.40 Nucleated RBC % 0 Sodium 134 Potassium 4.0 Chloride 96 L Carbon Dioxide 26.7 Anion Gap 11 BUN 20 H Creatinine 0.80 Estim Creat Clear Calc 44.58 L Est GFR (MDRD) Non-Af 71 BUN/Creatinine Ratio 24.3 H Glucose 105 H Calcium 10.1 Troponin T High Sens 27 H Troponin T Hi Sens 2 Hr 26 H NT pro BNP II 1025 Urine Color Yellow Urine Clarity Clear Urine pH 8.0 Ur Specific Baxter 1.010 Urine Protein 15 H Urine Glucose (UA) Normal Urine Ketones Negative Urine Occult Blood Negative Urine Nitrite Negative Urine Bilirubin Negative Urine Urobilinogen Normal Ur Leukocyte Esterase Negative Urine RBC 0 SEEN Urine WBC 0-5 SEEN Ur Squamous Epith Cells 0-5 SEEN Urine Bacteria 0 SEEN Urine Mucus 0 SEEN Radiography Diagnostic Testing: Clinical Impression(s) from Imaging Studies Chest X-Ray 01/13/25 08:45 IMPRESSION: Mild cardiomegaly. Reading Location: [facility] Head/Neck CTA 01/13/25 08:45 IMPRESSION: CT head: 1. No acute intracranial finding. 2. Findings of chronic microvascular ischemic changes and age-related changes. CTA: 1. No large vessel occlusion, aneurysm or AVM. 2. 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 3. Biapical emphysema. Reading Location: [facility] EKG Initial EKG: Attestation: I personally reviewed and interpreted this EKG as follows: Comments: Sinus rhythm first-degree AV block left bundle branch block noted. Ventricular rate of 70bpm Management Discussion w/another healthcare provider: Hospitalist Discharge Plan Triage Chief Complaint: Dizziness ED Provider: Garret Ayala Dx/Rx/DC Orders Prescriptions: No Action pantoprazole 20 mg tablet,delayed release (DR/EC) 20 mg PO DAILY hydrocodone-acetaminophen 5-325 mg tablet 1 tab PO TID PRN (Reason: pain) albuterol sulfate 90 mcg/actuation HFA aerosol inhaler 2 puff inhalation Q4 PRN (Reason: wheezing) Trelegy Ellipta 100-62.5-25 mcg blister with device 1 ea inhalation DAILY sacubitril-valsartan [Entresto] 49-51 mg tablet 1 tab PO BID Qty: 180 3RF Patient Comments: PT STATES THIS HAS CAUSED HER SOME DIZZINESS. aspirin 81 MG tablet 81 mg PO DAILY@0800 montelukast 10 MG tablet 10 mg PO DAILY loratadine 10 MG tablet 10 mg PO DAILY multivitamin with folic acid 1 TABLET tablet 1 tab PO DAILY isosorbide mononitrate 60 mg tablet extended release 24 hr 60 mg PO DAILY dapagliflozin propanediol [Farxiga] 10 mg tablet 10 mg PO DAILY Patient Comments: PT STATES THIS HAS CAUSED HER SOME DIZZINESS. calcium carbonate-vitamin D3 600 mg-10 mcg (400 unit) tablet 2 tab PO DAILY cholecalciferol (vitamin D3) 10 mcg (400 unit) tablet,chewable 10 mcg PO DAILY atorvastatin 40 mg tablet 40 mg PO DAILY furosemide [Lasix] 40 mg tablet 40 mg PO BID Qty: 60 0RF carvedilol 12.5 mg tablet 12.5 mg PO BID Qty: 180 4RF potassium chloride 20 mEq tablet extended release 20 meq PO DAILY Qty: 90 3RF nitroglycerin 0.4 mg tablet, sublingual See Rx Instructions .ROUTE .COMPLEX Qty: 25 3RF Dose Instruction: 0.4 MG SUBLINGUAL EVERY 5-15M NEEDED FOR CHEST PAIN Rx Instructions: 0.4 MG SUBLINGUAL EVERY 5-15M NEEDED FOR CHEST PAIN Primary Care Provider: Alberto Herr Referrals: Alberto Herr MD [Primary Care Provider] - Print Language: Tuvaluan NIHSS NIHSS 1a. Level of Consciousness: Alert; keenly responsive 1b. LOC Questions: Answers BOTH questions correctly. 1c. LOC Commands: Performs both tasks correctly. 2. Best Gaze: Normal 3. Visual: No visual loss 4. Facial Palsy: Normal symmetrical movements 5a. Left Arm: No drift; arm holds 90 (or 45) degrees for full 10 seconds 5b. Right Arm: No drift; arm holds 90 (or 45) degrees for full 10 seconds 6a. Left Leg: No drift; leg holds 30-degree position for full 5 seconds 6b. Right Leg: No drift; leg holds 30-degree position for full 5 seconds 7. Limb Ataxia: Absent 8. Sensory: Normal; no sensory loss 9. Best Language: No aphasia; normal 10. Dysarthria: Normal 11. Extinction and Inattention: No abnormality Total: 0 What to do if you have Problems For any increased pain, shortness of breath, bleeding, nausea or vomiting, chestpain, or any unexpected problems, contact your Primary Care Provider. Call [employer] [facility] ([phone]) or report tothe closest Emergency Room. Call 911 if necessary. 01/13/25 1524 Cosigner Signature (if applicable): CC: Dr. Alberto Herr MD ~ Signed [facility]04-12-2025 History and physical note Author Miranda Tripathi [facility] Note Date/Time January 13, 2025 12: 41pm [facility] Medical Records Department [address] [place] [id number] H&P Exam - Hospitalist 01/13/25 1224 MR#: [id number] Acct: [id number] Name: NANO AGUILAR Rep #:[id number] : 1940 85 From: Miranda Tripathi MD PCP: Dr. Alberto Herr MD Status:A DM [facility] Location: [place] [address] HPI - General General Date of Admission: 01/13/25 Date of Service: 01/13/25 Chief Complaint: Dizziness HPI Narrative NANO AGUILAR, is a 85 F with a history of coronary artery disease, hypertension, GERD, COPD, CHF who presented to [facility] /09/27 with dizziness since 130 this morning. Patient got up to go to the bathroom and when she went back to her bed and laid down and turned over she began to feel like the room was spinning and like the bed was moving, due to this persisting patient came to the ED. In the ED blood pressure initially 180/79, heart rate 68 patient 99% on room air with a temperature of 97.6. Patient's lab workup fairly benign, EKG read demonstrated a left bundle branch block that is not new, UA unremarkable, CTA head and neck with no LVO, did have some left subclavian artery stenosis and biapical emphysema, chest x- ray with mild cardiomegaly but otherwise no acute abnormality. Patient was given Valium and Toradol for a slight occipital headache but due to persistent symptoms hospitalist contacted for admission for supportive care. Patient evaluated at bedside and reports that she did wake up around 1:30 in the morning, was able toambulate to the bathroom and back without any symptoms and then she laid down and reports after she turned to her side she had the sudden symptoms and she didfeel the room spinning in the bed moving, was also nauseous several times with no vomiting. She notes that symptoms have slowly improved and if further improved in the ED though still there, does not feel quite normal when she looksstraight up but symptoms are reproduced when she looks her head to the left, again is improving slowly. Does note that for a while patient will get some chest pressure that lasts about half an hour and has no associations with anything, not having any at the time of exam. Does report she also gets some left arm aching from her left shoulder to her left elbow and notes that arm is alittle bit tender to the touch when that happens it is worse with movement, doesnot sound that this is associated with her chest pressure at all and seems to sandy separate process, denies any falls or other acute complaints [facility] Medical History COPD exacerbation CHF exacerbation Acute hypoxic respiratory failure Osteoarthritis Osteoporosis Non-smoker Irregular heart beat Hypertension Congestive heart failure (CHF) Alcohol abuse Use of cane as ambulatory aid Mitral regurgitation CAD (coronary artery disease) Wears hearing aid Wears glasses Alcohol use Arthritis High cholesterol Excessive bleeding History of recent fall Back pain Dietary restriction Gastric reflux Former smoker Emphysema, unspecified COPD (chronic obstructive pulmonary disease) Asthma Shortness of breath on exertion Leg cramps History of pain when walking History of echocardiogram History of stress test Cardiology follow-up encounter HLD (hyperlipidemia) Valvular heart disease Chest pressure Hepatic cyst Bilateral carotid artery disease Atherosclerotic heart disease of [place] coronary artery without angina pectoris LBBB (left bundle branch block) Renovascular hypertension Essential hypertension GERD (gastroesophageal reflux disease) Nonischemic cardiomyopathy Dyslipidemia Asthma Chest pain Home Medications ?Medication ?Instructions ?Recorded ?Last Taken ?Type aspirin 81 mg tablet,delayed 81 mg PO DAILY@0800 09/0901/12/25 History release loratadine 10 mg tablet 10 mg PO DAILY allergies 04/2001/12/25 History montelukast 10 mg tablet 10 mg PO DAILY allergies 04/2001/12/25 History multivitamin with folic acid 400 1 tab PO DAILY vitami n 09/09/18 01/12/25 History mcg tablet pantoprazole 20 mg tablet,delayed 20 mg PO DAILY reflu x 08/08/19 01/12/25 History release hydrocodone-acetaminophen 5-325mg 1 tab PO TID PRN amy n 06/19/22 11/28/24 History 5mg-325mg carvedilol 12.5 mg tablet 12.5 mg PO BID blood pressur e #180 12/24/23 01/12/25 Rx tabs atorvastatin 40 mg tablet 40 mg PO DAILY cholesterol 1 01/12/25 History cholecalciferol (vitamin D3) 10 10 mcg PO DAILY vitami n 07/11/24 01/12/25 History mcg (400 unit) chewable tablet potassium chloride 20 mEq 20 meq PO DAILY #90 tabs 02/2401/12/25 Rx tablet,extended release albuterol sulfate 90 mcg/actuation 2 puff inhalation Q 4 PRN wheezing 11/16/24 11/29/24 08:00 History aerosol inhaler 2 puff fluticasone fur. 100 mcg-umeclid 1 ea inhalation DAILY 11/16/24 01/12/25 History 62.5 mcg-vilant 25 mcg inhalat.powder (Trelegy Ellipta) sacubitril 49 mg-valsartan 51 mg 1 tab PO BID #180 tab s 11/16/24 11/28/24 Rx tablet (Entresto) nitroglycerin 0.4 mg sublingual See Rx Instructions .R oute 11/28/24 11/28/24 Rx tablet .COMPLEX chest pain #25 tabs furosemide 40 mg tablet (Lasix) 40 mg PO BID #60 tabs 12/01/24 01/12/25 Rx calcium 600 mg (as 2 tab PO DAILY VITAMIN 01/1301/12/25 History carbonate)-vitamin D3 10 mcg (400 unit) tablet dapagliflozin propanediol 10 mg 10 mg PO DAILY 5 Unknown History tablet (Farxiga) isosorbide mononitrate 60 mg 60 mg PO DAILY 01/13/25 0 01/12/25 History tablet,extended release 24 hr Allergy/AdvReac Type Severity Reaction Status Date / Time adhesive tape AdvReac Itching Verified 01/13/25 07:52 latex AdvReac Rash Verified 01/13/25 07:52 nabumetone (From Relafen) AdvReac Nausea Verified 01/13/25 07:52 ramipril (From Altace) AdvReac Other Verified 01/13/25 07:52 sulfamethoxazole (From AdvReac Nausea Verified 01/13/25 07:52 Bactrim) trimethoprim (From Bactrim) AdvReac Nausea Verified 01/13/25 07:52 Surgical History History of cardiac catheterization Hx of bilateral cataract extraction Hx of colonoscopy History of breast biopsy History of tonsillectomy Social History Smoking Status: Former smoker how long ago did patient quit smokin alcohol intake: current alcohol intake frequency: a few times a week Alcohol type: wine substance use type: does not use caffeine: Yes Type: coffee Number of servings: 2 ROS ROS Narrative General: Denies fever/chills HENT: Little bit of an occipital headache, denies stuffy nose, denies sore throat EYES: Denies changes in vision Resp: Denies cough, denies shortness of breath Cardiac: Denies chest pain at this time GI: Denies abdominal pain, denies changes in bowel, however but nausea earlier without vomiting : Denies changes in urination Extremity: Denies swelling MSK: Denies weakness Neuro: Denies any numbness/tingling Heme: Denies any bleeding or bruising Skin: Denies rashes Psychiatric: No complaints voiced Vital Signs Vital Signs Vital Signs: 01/13/25 07:46 01/13/25 07:52 01/13/25 08:30 Temperature 97.6 F L Temperature Source Oral Pulse Rate 68 63 Respiratory Rate 16 12 Blood Pressure 180/79 H 161/61 H Blood Pressure Mean 112 90 Pulse Ox 99 96 Oxygen Delivery Method Room Air 01/13/25 08:45 01/13/25 09:00 01/13/25 09:00 Temperature Temperature Source Pulse Rate 78 71 74 Respiratory Rate 19 H 19 H 14 Blood Pressure 155/68 H 172/69 H 172/65 H Blood Pressure Mean 97 103 97 Pulse Ox 98 98 94 Oxygen Delivery Method Room Air Room Air 01/13/25 09:30 01/13/25 10:00 01/13/25 10:30 Temperature Temperature Source Pulse Rate 70 70 68 Respiratory Rate 12 11 L 11 L Blood Pressure 154/59 H 158/65 H 146/61 H Blood Pressure Mean 87 91 83 Pulse Ox 94 95 Oxygen Delivery Method 01/13/25 10:48 01/13/25 11:00 Temperature 97.8 F Temperature Source Pulse Rate 65 66 Respiratory Rate 11 L 14 Blood Pressure 146/68 H 150/61 H Blood Pressure Mean 94 86 Pulse Ox 93 95 Oxygen Delivery Method Weight Weight: 66 kg Body Mass Index (BMI) 24.2 Physical Exam Narrative General: Alert, oriented, no apparent distress HEENT: Atraumatic, normocephalic Eyes: Anicteric, normal conjunctiva, extraocular movements intact, pupils equal Neck: Supple Respiratory: Clear to auscultation bilaterally, normal respiratory effort Cardiovascular: Regular rate and rhythm GI: Soft, nontender, nondistended Extremities: No edema Musculoskeletal: Strength 5 - out of 5 in right upper extremity, 5 - out of 5 left upper extremity, 5 - out of 5 right lower extremity, 5 - out of 5 left lower extremity Neuro: No overt focal neurological deficits, cranial nerves II through XII intact, able to complete [id number] however did so very slowly, seems and was having a tremor in her hand but did not appear to have any overt overcorrection or cerebellar signs Skin: No rashes appreciated Psych: Cooperative Results Lab / Micro Data 01/13/25 07:48 01/13/25 07:48 Labs: Laboratory Results - last 24 hr 01/13/25 07:48: WBC 6.9, RBC 3.68 L, Hgb 12.8, Hct 36.9 L, MCV 100.3 H, MCH 34.8H, MCHC 34.7, RDW Std Deviation 46.2 H, RDW Coeff of Iisdra 12.5, Plt Count 176, MPV 9.4, Immature Gran % (Auto) 0.400, Neut % (Auto) 69.0, Lymph % (Auto) 20.4, Stanley % (Auto) 9.2, Eos % (Auto) 0.6, Baso % (Auto) 0.4, Absolute Neuts (auto) 4.7, Absolute Lymphs (auto) 1.40, Nucleated RBC % 0, Sodium 134, Potassium 4.0, Chloride 96 L, Carbon Dioxide 26.7, Anion Gap 11, BUN 20 H, Creatinine 0.80, Estim Creat Clear Calc 44.58 L, Est GFR (MDRD) Non-Af 71, BUN/Creatinine Ratio 24.3 H, Glucose 105 H, Calcium 10.1, Troponin T High Sens 27 H, NT pro BNP II 1025 01/13/25 08:14: Urine Color Yellow, Urine Clarity Clear, Urine pH 8.0, Ur Specific Baxter 1.010, Urine Protein 15 H, Urine Glucose (UA) Normal, Urine Ketones Negative, Urine Occult Blood Negative, Urine Nitrite Negative, Urine Bilirubin Negative, Urine Urobilinogen Normal, Ur Leukocyte Esterase Negative, Urine RBC 0 SEEN, Urine WBC 0-5 SEEN, Ur Squamous Epith Cells 0-5 SEEN, Urine Bacteria 0 SEEN, Urine Mucus 0 SEEN 01/13/25 09:45: Troponin T Hi Sens 2 Hr 26 H Imaging Radiology Impression Chest X-Ray 01/13/25 08:45 IMPRESSION: Mild cardiomegaly. Reading Location: [facility] Head/Neck CTA 01/13/25 08:45 IMPRESSION: CT head: 1. No acute intracranial finding. 2. Findings of chronic microvascular ischemic changes and age-related changes. CTA: 1. No large vessel occlusion, aneurysm or AVM. 2. 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 3. Biapical emphysema. Reading Location: [facility] Assessment & Plan Assessment/Plan (1) Dizziness: PLAN: Plan # Dizziness -Patient reports this happened after she got back in bed and turned over and it felt like the room was spinning, symptoms worse when she turns her head to the left, this sounds to be more peripheral in nature - Symptoms improving, will continue supportive care at this time - If symptoms worsen or do not continue improving may need to consider MRI - CTA with no LVO or acute intracranial abnormality -Fall precautions - PT/OT - Again suspect peripheral vertigo and do not think patient had CVA at this timegiven her reported history and her exam # Left upper arm aching - Patient did report was a little bit more painful when I was palpating without any focal tenderness he does report it hurts more when she moves it, will obtainx- ray # Elevated troponin - Patient was significantly hypertensive with systolic of 180s on arrival - Initial troponin 27-second troponin downtrended 26 - EKG read demonstrated old left bundle branch block - Not having any chest pain at time of my evaluation - Reports this intermittent chest pressure that has no exacerbating relieving factors, unclear significance but does not appear to have any ACS at this time - Will continue patient's home blood pressure medications and add as needed hydralazine # History of heart failure with reduced ejection fraction - Patient does not appear to be overloaded, appears euvolemic -Last echocardiogram EF 20% severe global hypokinesis of the left ventricle - Daily weights, I's and O's - Continue home medications - Heart healthy diet # History of coronary artery disease - Continue aspirin, statin, beta-taras #Hx COPD -Continue home inhalers -Incentive spirometer #GERD -Continue PPI #DVT ppx: Heparin subcu Miranda Tripathi MD Charges/Coding Visit Charges Inpatient E&M: 03840 Init Hosp L2 01/13/25 1241 <Electronically signed by Miranda Tripathi MD> Cosigner Signature (if applicable): CC: Dr. Miranda Tripathi MD; Dr. Alberto Herr MD~ Signed [facility] Work Phone: [phone]) 156-389304-12-2025 Radiology Diagnostic study note [facility] Imaging Services [address] [place], [place] [address] Humerus min 2 Views MR#: [id number] Acct: [id number] Name: NANO AGUILAR Rep #: [id number] : 1940 F 85 From: Maddison Gonzalez MD PCP: Dr. Alberto Herr MD Status: A DM CHEMA Study:Humerus min 2 Views Date of Exam: 01/13/25 Exam# [id number] Ordering Dr: Michele Tripathi MD PROCEDURE: HUMERUS MIN 2 VIEWS 01/13/2025 REASON FOR EXAM: PAIN FROM LEFT SHOULDER TO LEFT ELBOW TECHNIQUE: 2 view(s) of the left humerus. COMPARISON: CHEST RADIOGRAPH 01/13/2025. FINDINGS: Bones: Diffuse osseous demineralization. No acute osseous fracture. No aggressive osseous lesions. Joints: Severe arthrosis of the left glenohumeral and acromioclavicular joints. Soft tissues: Soft tissues are unremarkable. Other: IV tubing overlies the left antecubital fossa. RAD/Humerus min 2 Views IMPRESSION: DEGENERATIVE OSTEOARTHROSIS. NO ACUTE FINDINGS. Reading Location: [facility] CC: Dr. Miranda Tripathi MD; Dr. Alberto Herr MD ~ Database Administration Project Manager: Signed [facility]04-12-2025 History and physical note [facility] Medical Records Department [address] [place] [id number] H&P Exam - Hospitalist 01/13/25 1224 MR#: [id number] Acct: [id number] Name: NANO AGUILAR Rep #:[id number] : 1940 85 From: Miranda Tripathi MD PCP: Dr. Alberto Herr MD Status:A DM CHEMA Location: [facility] [id number] HPI - General General Date of Admission: 01/13/25 Date of Service: 01/13/25 Chief Complaint: Dizziness HPI Narrative NANO AGUILAR, is a 85 F with a history of coronary artery disease, hypertension, GERD, COPD, CHF who presented to [facility] /09/27 with dizziness since 130 this morning. Patient got up to go to the bathroom and when she went back to her bed and laid down and turned over she began to feel like the room was spinning and like the bed was moving, due to this persisting patient came to the ED. In the ED blood pressure initially 180/79, heart rate 68 patient 99% on room air with a temperature of 97.6. Patient's lab workup fairly benign, EKG read demonstrated a left bundle branch block that is not new, UA unremarkable, CTA head and neck with no LVO, did have some left subclavian artery stenosis and biapical emphysema, chest x-ray with mild cardiomegaly but otherwise no acuteabnormality. Patient was given Valium and Toradol for a slight occipital headache but due to persistent symptoms hospitalist contacted for admission for supportive care. Patient evaluated at bedside and reports that she did wake up around 1:30 in the morning, was able toambulate to the bathroom andback without any symptoms and then she laid down and reports after she turned to her side she had the sudden symptoms and she didfeel the room spinning in the bed moving, was also nauseous several times with no vomiting. She notes that symptoms have slowly improved and if further improved in the EDthough still there, does not feel quite normal when she looksstraight up but symptoms are reproduced when she looks her head to the left, again is improving slowly. Does note that for a while patient will get some chest pressure that lasts about half an hour and has no associations with anything,not having any at the time of exam. Does report she also gets some left arm aching from her left shoulder to her left elbow and notes that arm is alittle bit tender to the touch when that happens it is worse with movement, doesnot sound that this is associated with her chest pressure at all and seems to sandy separate process, denies any falls or other acute complaints [facility] Medical History COPD exacerbation CHF exacerbation Acute hypoxic respiratory failure Osteoarthritis Osteoporosis Non-smoker Irregular heart beat Hypertension Congestive heart failure (CHF) Alcohol abuse Use of cane as ambulatory aid Mitral regurgitation CAD (coronary artery disease) Wears hearing aid Wears glasses Alcohol use Arthritis High cholesterol Excessive bleeding History of recent fall Back pain Dietary restriction Gastric reflux Former smoker Emphysema, unspecified COPD (chronic obstructive pulmonary disease) Asthma Shortness of breath on exertion Leg cramps History of pain when walking History of echocardiogram History of stress test Cardiology follow-up encounter HLD (hyperlipidemia) Valvular heart disease Chest pressure Hepatic cyst Bilateral carotid artery disease Atherosclerotic heart disease of [place] coronary artery without angina pectoris LBBB (left bundle branch block) Renovascular hypertension Essential hypertension GERD (gastroesophageal reflux disease) Nonischemic cardiomyopathy Dyslipidemia Asthma Chest pain Home Medications ?Medication ?Instructions ?Recorded ?Last Taken ?Type aspirin 81 mg tablet,delayed 81 mg PO DAILY@0800 09/0901/12/25 History release loratadine 10 mg tablet 10 mg PO DAILY allergies 04/2001/12/25 History montelukast 10 mg tablet 10 mg PO DAILY allergies 04/2001/12/25 History multivitamin with folic acid 400 1 tab PO DAILY vitami n 09/09/18 01/12/25 History mcg tablet pantoprazole 20 mg tablet,delayed 20 mg PO DAILY reflu x 08/08/19 01/12/25 History release hydrocodone-acetaminophen 5-325mg 1 tab PO TID PRN amy n 06/19/22 11/28/24 History 5mg-325mg carvedilol 12.5 mg tablet 12.5 mg PO BID blood pressur e #180 12/24/23 01/12/25 Rx tabs atorvastatin 40 mg tablet 40 mg PO DAILY cholesterol 1 01/12/25 History cholecalciferol (vitamin D3) 10 10 mcg PO DAILY vitami n 07/11/24 01/12/25 History mcg (400 unit) chewable tablet potassium chloride 20 mEq 20 meq PO DAILY #90 tabs 02/2401/12/25 Rx tablet,extended release albuterol sulfate 90 mcg/actuation 2 puff inhalation Q 4 PRN wheezing 11/16/24 11/29/24 08:00 History aerosol inhaler 2 puff fluticasone fur. 100 mcg-umeclid 1 ea inhalation DAILY 11/16/24 01/12/25 History 62.5 mcg-vilant 25 mcg inhalat.powder (Trelegy Ellipta) sacubitril 49 mg-valsartan 51 mg 1 tab PO BID #180 tab s 11/16/24 11/28/24 Rx tablet (Entresto) nitroglycerin 0.4 mg sublingual See Rx Instructions .R oute 11/28/24 11/28/24 Rx tablet .COMPLEX chest pain #25 tabs furosemide 40 mg tablet (Lasix) 40 mg PO BID #60 tabs 12/01/24 01/12/25 Rx calcium 600 mg (as 2 tab PO DAILY VITAMIN 01/1301/12/25 History carbonate)-vitamin D3 10 mcg (400 unit) tablet dapagliflozin propanediol 10 mg 10 mg PO DAILY 5 Unknown History tablet (Farxiga) isosorbide mononitrate 60 mg 60 mg PO DAILY 01/13/25 0 01/12/25 History tablet,extended release 24 hr Allergy/AdvReac Type Severity Reaction Status Date / Time adhesive tape AdvReac Itching Verified 01/13/25 07:52 latex AdvReac Rash Verified 01/13/25 07:52 nabumetone (From Relafen) AdvReac Nausea Verified 01/13/25 07:52 ramipril (From Altace) AdvReac Other Verified 01/13/25 07:52 sulfamethoxazole (From AdvReac Nausea Verified 01/13/25 07:52 Bactrim) trimethoprim (From Bactrim) AdvReac Nausea Verified 01/13/25 07:52 Surgical History History of cardiac catheterization Hx of bilateral cataract extraction Hx of colonoscopy History of breast biopsy History of tonsillectomy Social History Smoking Status: Former smoker how long ago did patient quit smokin alcohol intake: current alcohol intake frequency: a few times a week Alcohol type: wine substance use type: does not use caffeine: Yes Type: coffee Number of servings: 2 ROS ROS Narrative General: Denies fever/chills HENT: Little bit of an occipital headache, denies stuffy nose, denies sore throat EYES: Denies changes in vision Resp: Denies cough, denies shortness of breath Cardiac: Denies chest pain at this time GI: Denies abdominal pain, denies changes in bowel, however but nausea earlier without vomiting : Denies changes in urination Extremity: Denies swelling MSK: Denies weakness Neuro: Denies any numbness/tingling Heme: Denies any bleeding or bruising Skin: Denies rashes Psychiatric: No complaints voiced Vital Signs Vital Signs Vital Signs: 01/13/25 07:46 01/13/25 07:52 01/13/25 08:30 Temperature 97.6 F L Temperature Source Oral Pulse Rate 68 63 Respiratory Rate 16 12 Blood Pressure 180/79 H 161/61 H Blood Pressure Mean 112 90 Pulse Ox 99 96 Oxygen Delivery Method Room Air 01/13/25 08:45 01/13/25 09:00 01/13/25 09:00 Temperature Temperature Source Pulse Rate 78 71 74 Respiratory Rate 19 H 19 H 14 Blood Pressure 155/68 H 172/69 H 172/65 H Blood Pressure Mean 97 103 97 Pulse Ox 98 98 94 Oxygen Delivery Method Room Air Room Air 01/13/25 09:30 01/13/25 10:00 01/13/25 10:30 Temperature Temperature Source Pulse Rate 70 70 68 Respiratory Rate 12 11 L 11 L Blood Pressure 154/59 H 158/65 H 146/61 H Blood Pressure Mean 87 91 83 Pulse Ox 94 95 Oxygen Delivery Method 01/13/25 10:48 01/13/25 11:00 Temperature 97.8 F Temperature Source Pulse Rate 65 66 Respiratory Rate 11 L 14 Blood Pressure 146/68 H 150/61 H Blood Pressure Mean 94 86 Pulse Ox 93 95 Oxygen Delivery Method Weight Weight: 66 kg Body Mass Index (BMI) 24.2 Physical Exam Narrative General: Alert, oriented, no apparent distress HEENT: Atraumatic, normocephalic Eyes: Anicteric, normal conjunctiva, extraocular movements intact, pupils equal Neck: Supple Respiratory: Clear to auscultation bilaterally, normal respiratory effort Cardiovascular: Regular rate and rhythm GI: Soft, nontender, nondistended Extremities: No edema Musculoskeletal: Strength 5 - out of 5 in right upper extremity, 5 - out of 5 left upper extremity,5 - out of 5 right lower extremity, 5 - out of 5 left lower extremity Neuro: No overt focal neurological deficits, cranial nerves II through XII intact, able to [id number]-la-ablw however did so very slowly, seems and was having a tremor in her hand but did not appear to have any overt overcorrection or cerebellar signs Skin: No rashes appreciated Psych: Cooperative Results Lab / Micro Data 01/13/25 07:48 01/13/25 07:48 Labs: Laboratory Results - last 24 hr 01/13/25 07:48: WBC 6.9, RBC 3.68 L, Hgb 12.8, Hct 36.9 L, MCV 100.3 H, MCH 34.8H, MCHC 34.7, RDW Std Deviation 46.2 H, RDW Coeff of Isidra 12.5, Plt Count 176, MPV 9.4, Immature Gran % (Auto) 0.400, Neut % (Auto) 69.0, Lymph % (Auto) 20.4, Stanley % (Auto) 9.2, Eos % (Auto) 0.6, Baso % (Auto) 0.4, Absolute Neuts (auto) 4.7, Absolute Lymphs (auto) 1.40, Nucleated RBC % 0, Sodium 134, Potassium 4.0, Chloride 96 L, Carbon Dioxide 26.7, Anion Gap 11, BUN 20 H, Creatinine 0.80, Estim Creat Clear Calc 44.58 L, Est GFR (MDRD) Non-Af 71, BUN/Creatinine Ratio 24.3 H, Glucose 105 H, Calcium 10.1, Troponin THigh Sens 27 H, NT pro BNP II 1025 01/13/25 08:14: Urine Color Yellow, Urine Clarity Clear, Urine pH 8.0, Ur Specific Baxter 1.010, Urine Protein 15 H, Urine Glucose (UA) Normal, Urine Ketones Negative, Urine Occult Blood Negative, Urine Nitrite Negative, Urine Bilirubin Negative, Urine Urobilinogen Normal, Ur Leukocyte Esterase Negative, Urine RBC 0 SEEN, Urine WBC 0-5 SEEN, Ur Squamous Epith Cells 0-5 SEEN, Urine Bacteria 0 SEEN, Urine Mucus 0 SEEN 01/13/25 09:45: Troponin T Hi Sens 2 Hr 26 H Imaging Radiology Impression Chest X-Ray 01/13/25 08:45 IMPRESSION: Mild cardiomegaly. Reading Location: [facility] Head/Neck CTA 01/13/25 08:45 IMPRESSION: CT head: 1. No acute intracranial finding. 2. Findings of chronic microvascular ischemic changes and age-related changes. CTA: 1. No large vessel occlusion, aneurysm or AVM. 2. 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 3. Biapical emphysema. Reading Location: [facility] Assessment & Plan Assessment/Plan (1) Dizziness: PLAN: Plan # Dizziness -Patient reports this happened after she got back in bed and turned over and it felt like the room was spinning, symptoms worse when she turns her head to the left, this sounds to be more peripheral in nature - Symptoms improving, will continue supportive care at this time - If symptoms worsen or do not continue improving may need to consider MRI - CTA with no LVO or acute intracranial abnormality -Fall precautions - PT/OT - Again suspect peripheral vertigo and do not think patient had CVA at this timegiven her reported history and her exam # Left upper arm aching - Patient did report was a little bit more painful when I was palpating without any focal tenderness he does report it hurts more when she moves it, will obtainx-ray # Elevated troponin - Patient was significantly hypertensive with systolic of 180s on arrival - Initial troponin 27-second troponin downtrended 26 - EKG read demonstrated old left bundle branch block - Not having any chest pain at time of my evaluation - Reports this intermittent chest pressure that has no exacerbating relieving factors, unclear significance but does not appear to have any ACS at this time - Will continue patient's home blood pressure medications and add as needed hydralazine # History of heart failure with reduced ejection fraction - Patient does not appear to be overloaded, appears euvolemic -Last echocardiogram EF 20% severe global hypokinesis of the left ventricle - Daily weights, I's and O's - Continue home medications - Heart healthy diet # History of coronary artery disease - Continue aspirin, statin, beta-taras #Hx COPD -Continue home inhalers -Incentive spirometer #GERD -Continue PPI #DVT ppx: Heparin subcu Miranda Tripathi MD Charges/Coding Visit Charges Inpatient E&M: 76347 Init Hosp L2 01/13/25 1241 Cosigner Signature (if applicable): CC: Dr. Miranda Tripathi MD; Dr. Alberto Herr MD~ Signed [facility]04-12-2025 Radiology Diagnostic study note [facility] Imaging Services [address] [place], [place] [id number] CTA Head AND Neck W/ Contrast MR#: [id number] Acct: [id number] Name: NANO AGUILAR Rep #: [id number] : 1940 F 85 From: Maddison Gonzalez MD PCP: Dr. Alberto Herr MD Status: R EG ER Study:CTA Head AND Neck W/ Contrast Date of Meaghan garcia: 01/13/25 Exam# [id number] Ordering Dr: Kiran Ayala DO PROCEDURE: CT HEAD, CTA HEAD AND NECK W/ CONTRAST 01/13/2025 REASON FOR EXAM: DIZZINESS/POSTERIOR CIRCULATION TECHNIQUE: CTA imaging of the head and neck from the aortic arch to the skull vertex with out constrast and with intravenous contrast. Coronal and Sagittal reconstruction series were provided. 3D post processing with reformations, Maximum intensity projection (MIPs) Volume rendering and Shaded surface rendering was provided. CONTRAST: Isovue 370 VOLUME: 100 mL One or more dose reduction techniques were used (e.g., Automated exposure control, adjustment of the mA and/or kV according to patient size, use of iterative reconstruction technique). RADIATION DOSE SUMMARY: CTDlvol: 85 mGy DLP: 1400 mGycm COMPARISON: None. FINDINGS: Noncontrast CT head: The ventricles and subarachnoid spaces are normal for patient age. Minimal generalized cerebral volume loss. Moderate patchy supratentorial white matter hypodensities. The swann-white matter interfaces areotherwise maintained. No acute intracranial hemorrhage or herniation. The basal cisterns are patent. The visualized paranasal sinuses are well-aerated. Unremarkable orbits. No acute calvarial fracture or scalp hematoma. CTA neck: Three-vessel aortic arch with calcific plaque of the left subclavian artery at its origin resultingin moderate stenosis. Calcific plaque of the bilateral vertebral arteries at their origins resulting in mild narrowing. Calcific plaque of the bilateral cervical carotid arteries without focal stenosis by NASCET criteria. CTA head: Calcific plaque of the bilateral carotid siphons without focal stenosis or occlusion. The bilateralanterior, middle and posterior arteries are widely patent. No aneurysm or AVM. Major venous structures: Unremarkable. Other findings: Biapical emphysema and pleural-parenchymal scarring. Cervical spondylosis. CT/CTA Head AND Neck W/ Contrast IMPRESSION: CT head: 1. No acute intracranial finding. 2. Findings of chronic microvascular ischemic changes and age-related changes. CTA: 1. No large vessel occlusion, aneurysm or AVM. 2. 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 3. Biapical emphysema. Reading Location: [id number] CC: Dr. Garret Ayala DO; Dr. Alberto Herr MD ~ Database Administration Project Manager: Signed [facility]04-12-2025 Radiology Diagnostic study note [facility] Imaging Services [address] [place], [place] [address] Chest 1 View (Portable) MR#: [id number] Acct: [id number] Name: NANO AGUILAR Rep #: [id number] : 1940 F 85 From: Maddison Gonzalez MD PCP: Dr. Alberto Herr MD Status: R EG ER Study:Chest 1 View (Portable) Date of Exam: 01/13/25 Exam# [id number] Ordering Dr: Kiran Ayala DO PROCEDURE: CHEST 1 VIEW (PORTABLE) 01/13/2025 REASON FOR EXAM: CHF TECHNIQUE: Frontal view of the chest. COMPARISON: Chest radiograph 11/29/2024. FINDINGS: Hardware: None. Heart: Heart size is mildly enlarged. Calcific plaque of the thoracic aorta. Lungs: No focal consolidation, pleural effusion or pneumothorax. Bones: Degenerative changes are identified within the thoracic spine. RAD/Chest 1 View (Portable) IMPRESSION: Mild cardiomegaly. Reading Location: [id number] CC: Dr. Garret Ayala DO; Dr. Alberto Herr MD ~ Database Administration Project Manager: Signed [facility]03-26-2025 Telephone encounter Note* Telephone Encounter - Alessandra Osman RN - 12/27/2024 10:57 AM EDT Spoke with patient for TCM follow up, just needs new script sent to [facility]. Thank you Prescription Refill Information The patient has been identified by name and date of : Yes Caregiver verified no other encounters exist for this prescription request: Yes Caregiver confirmed with patient/requestor that no other refills are due, in the near future, with this provider at this time: Yes The last office visit in the department: 07/19/2024 Does the patient have a future office visit with this provider/department: Yes 01/22/2025 Requested Prescriptions Pending Prescriptions Disp Refills montelukast (SINGULAIR) 10 mg tablet 90 tablet 3 Sig: Take 1 tablet by mouth once daily. Alessandra Osman RN December 27, 2024 10:58 AM [facility] Work Phone: [phone] Miscellaneous Notes* Telephone Encounter - Alessandra Osman RN - 12/27/2024 10:57 AM EDT Spoke with patient for TCM follow up, just needs new script sent to [facility]. Thank you Prescription Refill Information The patient has been identified by name and date of : Yes Caregiver verified no other encounters exist for this prescription request: Yes Caregiver confirmed with patient/requestor that no other refills are due, in the near future, with this provider at this time: Yes The last office visit in the department: 07/19/2024 Does the patient have a future office visit with this provider/department: Yes 01/22/2025 Requested Prescriptions Pending Prescriptions Disp Refills montelukast (SINGULAIR) 10 mg tablet 90 tablet 3 Sig: Take 1 tablet by mouth once daily. Alessandra Osman RN December 27, 2024 10:58 AM [facility] NoteHNO ID: [id number] Author: ALESSANDRA OSMAN RN Service: ? Author Type: Registered Nurse Type: Progress Notes Filed: 12/27/2024 11:01 Note Text: Transitional Care Management (TCM) Follow-Up Note PCP Update / Actionable Items N/A - No specialty updates needed Patient Source: [facility] ([facility]) Discharge Outreach Summary: spoke with patient, continues to do well at home. Denies any increased SOB. Refill request sent to PCP , no further needs or concerns Contact: Contact made with patient: Yes Spoke to: Patient Validation: Validated the person spoken to is actively involved in the patient's care. The patient was identified by Name and Date of . I'd like to get an update on how you're doing since our last phone call. Is now a good time to talk? Yes Symptoms: Are you feeling about the same, better or worse since leaving the hospital? Better Weekly Outreach: 2nd Outreach Medications: Do you have any questions about taking your medications, including which medications you should be on, or do you need refills on your medications? Yes The patient needs refills- A separate telephone encounter was placed using the dot phrase .RXREFILL. Encounter routed to appropriate provider for approval. Patient Questions / Concerns: Do you have any questions related to your discharge? No Appointment / TCM Follow-Up: Have you had a follow-up visit with your Primary Care Provider or Specialist since you were discharged? No Do you need any assistance with scheduling or changing your follow-up appointments? Patient already has an appointment scheduled SDOH: Has Food and Housing been addressed in Social Drivers in the past 3 months? No- Check Social Drivers to ensure Food and Housing have been addressed in the past 3 months. If longer than 3 months or not completed update Social Drivers on story board. EDUCATION--: COPD Education Provided COPD CARE PLAN / ZONES-ACTION PLAN sent via [employer] Alessandra Osman RN December 27, 2024 11:00 [facility]03-26-2025 History of Present illness Narrative* Alessandra Osman RN - 12/27/2024 10:55 AM EDT Transitional Care Management (TCM) Follow-Up Note PCP Update / Actionable Items N/A - No specialty updates needed Patient Source: Ddx-lp-[facility] ([facility]) Discharge Outreach Summary: spoke with patient, continues to do well at home. Denies any increased SOB. Refill request sent to PCP , no further needs or concerns Contact: Contact made with patient: Yes Spoke to: Patient Validation: Validated the person spoken to is actively involved in the patient's care. The patient was identified by Name and Date of . I'd like to get an update on how you're doing since our last phone call. Is now a good time to talk? Yes Symptoms: Are you feeling about the same, better or worse since leaving the hospital? Better Weekly Outreach: 2nd Outreach Medications: Do you have any questions about taking your medications, including which medications you should be on, or do you need refills on your medications? Yes The patient needs refills- A separate telephone encounter was placed using the dot phrase .RXREFILL. Encounter routed to appropriate provider for approval. Patient Questions / Concerns: Do you have any questions related to your discharge? No Appointment / TCM Follow-Up: Have you had a follow-up visit with your Primary Care Provider or Specialist since you were discharged? No Do you need any assistance with scheduling or changing your follow-up appointments? Patient alreadyhas an appointment scheduled SDOH: Has Food and Housing been addressed in Social Drivers in the past 3 months? No- Check Social Drivers to ensure Food and Housing have been addressed in the past 3 months. If longer than 3 months or not completed update Social Drivers on story board. EDUCATION--: COPD Education Provided COPD CARE PLAN / ZONES-ACTION PLAN sent via [employer] Alessandra Osman RN December 27, 2024 11:00 AM [facility] NotePatient Outreach ([facility]) NANO AGUILAR ([id number]) 1940 F Date Time Provider Department 12/27/24 ALESSANDRA OSMAN [facility] During your visit today, we recorded the following information about you: Alessandra Osman RN 12/27/2024 11:01 AM Signed Transitional Care Management (TCM) Follow-Up Note PCP Update / Actionable Items N/A - No specialty updates needed Patient Source: Wwk-oj[facility]Vrycrr[facility] ([facility]) Discharge Outreach Summary: spoke with patient, continues to do well at home. Denies any increased SOB. Refill request sent to PCP , no further needs or concerns Contact: Contact made with patient: Yes Spoke to: Patient Validation: Validated the person spoken to is actively involved in the patient's care. The patient was identified by Name and Date of . I'd like to get an update on how you're doing since our last phone call. Is now a good time to talk? Yes Symptoms: Are you feeling about the same, better or worse since leaving the hospital? Better Weekly Outreach: 2nd Outreach Medications: Do you have any questions about taking your medications, including which medications you should be on, or do you need refills on your medications? Yes The patient needs refills- A separate telephone encounter was placed using the dot phrase .RXREFILL. Encounter routed to appropriate provider for approval. Patient Questions / Concerns: Do you have any questions related to your discharge? No Appointment / TCM Follow-Up: Have you had a follow-up visit with your Primary Care Provider or Specialist since you were discharged? No Do you need any assistance with scheduling or changing your follow-up appointments? Patient already has an appointment scheduled SDOH: Has Food and Housing been addressed in Social Drivers in the past 3 months? No- Check Social Drivers to ensure Food and Housing have been addressed in the past 3 months. If longer than 3 months or not completed update Social Drivers on moziy board. EDUCATION--: COPD Education Provided COPD CARE PLAN / ZONES-ACTION PLAN sent via [employer] Alessandra Osman RN December 27, 2024 11:00 AM Allergies As of Date: 12/27/2024 Noted Allergy Reaction WILBER (RAMIPRIL) 12/06/2012 14 - Other: See Comments Comments: Cough BACTRIM (SULFAMETHOXAZOLE-TRIMETH*01/22/2011 8 - GI Upset Comments: Pt having GI upset and stomach pain LATEX 04/17/2009 9 - Itching Comments: Blisters RELAFEN (NABUMETONE) 06/09/2005 8 - GI Upset Date Reviewed: 07/19/2024 Reviewed by: Jannie Monahan LPN - Fully Assessed Reason for Visit: Transition Of Care [4074] Cmt: Follow up day 26 Prescriptions as of 12/27/2024 - NIK GOTTLIEB 100-62.5-25 mcg inhalation powder inhale 1 puff by mouth and INTO THE LUNGS once daily - albuterol (PROVENTIL) 2.5 mg /3 mL (0.083 %) nebulizer solution Use 3 mL via nebulizer every 4 hours as needed for wheezing/shortness of breath. DX: ICD9: 493.00, ICD10: J45.909 - fluticasone (FLONASE) 50 mcg/actuation nasal spray Use 1 [place] in each nostril once daily. - albuterol HFA (PROVENTIL HFA, VENTOLIN HFA) 90 mcg/actuation inhaler Inhale 2 Puffs as instructed. - loratadine (CLARITIN) 10 mg tablet TAKE 1 TABLET BY MOUTH EVERY DAY NEEDED FOR ALLERGIES - montelukast (SINGULAIR) 10 mg tablet Take 1 tablet by mouth once daily. - pantoprazole DR (PROTONIX) 20 mg tablet Take 1 tablet by mouth daily before breakfast. Take on empty stomach, 1/2 hr before meal. - isosorbide mononitrate ER (IMDUR) 30 mg 24 hr tablet Take 1 tablet by mouth once daily. - losartan (COZAAR) 50 mg tablet Take 1 tablet by mouth once daily. - nitroglycerin sublingual (NITROSTAT) 0.4 mg SL [...] tablet by mouth once daily. - FISH TYO-TZZPP-4-COENZYME Q10 1,900 MG-640 MG-50 MG/2.5 G ORAL PACKET Take one(1) tablet daily. Problem List As Of Date 12/27/2024 Noted Resolved Extrinsic asthma [J45.909] 06/09/2005 08/01/2021 Generalized osteoarthritis [M15.9] 06/09/2005 Osteoporotic compression fracture of spine with*07/13/2017 Allergic rhinitis [J30.9] 06/09/2005 ESOPHAGEAL REFLUX [K21.9] 06/09/2005 Non-ischemic cardiomyopathy (HCC) [I42.8] 08/04/2005 Other hyperlipidemia [E78.49] 08/04/2005 Bronchiectasis without acute (more content not included)...[facility]03-18-2025 Telephone encounter Note* Telephone Encounter - Valentina Hutton MA - 12/19/2024 11:53 AM EDT Patient was notified Valentina Hutton MA [facility]03-18-2025 Miscellaneous Notes* Telephone Encounter - Valentina Hutton MA - 12/19/2024 11:53 AM EDT Patient was notified Valentina Hutton MA * Telephone Encounter - Alberto Herr MD - 12/18/2024 5:43 PM EDT The following approved medication requests have been transmitted electronically. Requested Prescriptions Signed Prescriptions Disp Refills HYDROcodone-acetaminophen (NORCO) 5-325 mg per tablet 21 tablet 0 Sig: Take 1 tablet by mouth three times a day as needed for pain for up to 7 days. Authorizing Provider: ALBERTO HERR MD * Telephone Encounter - Noemy Goddard RN - 12/18/2024 9:27 AM EDT Pt calling in and states that Dr. Herr has been prescribing her pain med Hydrocodone until shecan get in to see her pain doctor. Pt states she couldn't get in with Dr. Diamond until this . Pt asking if Dr. Herr could prescribe another week of pills to last her until that appt. Pt only has 1 Hydrocodone left at this time. The patient has been identified by name and date of : Yes Caregiver verified no other encounters exist for this prescription request: Yes Caregiver confirmed with patient/requestor that no other refills are due, in the near future, with this provider at this time: Yes The last office visit in the department: 07/19/2024 Does the patient have a future office visit with this provider/department: Yes 01/22/2025 Requested Prescriptions Pending Prescriptions Disp Refills HYDROcodone-acetaminophen (NORCO) 5-325 mg per tablet 21 tablet 0 Sig: Take 1 tablet by mouth three times a day as needed for pain for up to 7 days. Noemy Goddard RN December 18, 2024 9:29 AM documented [facility] Telephone encounter Note * Telephone Encounter - Alberto Herr MD - 12/18/2024 5:43 PM EDT The following approved medication requests have been transmitted electronically. Requested Prescriptions Signed Prescriptions Disp Refills HYDROcodone-acetaminophen (NORCO) 5-325 mg per tablet 21 tablet 0 Sig: Take 1 tablet by mouth three times a day as needed for pain for up to 7 days. Authorizing Provider: ALBERTO HERR MD [facility]03-17-[facility]25 Telephone encounter Note* Telephone Encounter - Noemy Goddard RN - 12/18/2024 9:27 AM EDT Pt calling in and states that Dr. Herr has been prescribing her pain med Hydrocodone until shecan get in to see her pain doctor. Pt states she couldn't get in with Dr. Diamond until this . Pt asking if Dr. Herr could prescribe another week of pills to last her until that appt. Pt only has 1 Hydrocodone left at this time. The patient has been identified by name and date of : Yes Caregiver verified no other encounters exist for this prescription request: Yes Caregiver confirmed with patient/requestor that no other refills are due, in the near future, with this provider at this time: Yes The last office visit in the department: 07/19/2024 Does the patient have a future office visit with this provider/department: Yes 01/22/2025 Requested Prescriptions Pending Prescriptions Disp Refills HYDROcodone-acetaminophen (NORCO) 5-325 mg per tablet 21 tablet 0 Sig: Take 1 tablet by mouth three times a day as needed for pain for up to 7 days. Noemy Goddard RN December 18, 2024 9:29 AM [facility]03-12-[facility]25 NoteHNO ID: [id number] Author: ALESSANDRA OSMAN RN Service: ? Author Type: Registered Nurse Type: Progress Notes Filed: 12/13/2024 14:02 Note Text: Transitional Care Management (TCM) Follow-Up Note PCP Update / Actionable Items N/A - No specialty updates needed Patient Source: [facility]pus[facility] ([facility]) Discharge Outreach Summary: Spoke with patient, doing well at home. Taking it easy and pacing herself. Denies any new or increased SOB. Does have home care coming. Does check pulse ox every morning - today 99% Contact: Contact made with patient: Yes Spoke to: Patient Validation: Validated the person spoken to is actively involved in the patient's care. The patient was identified by Name and Date of . I'd like to get an update on how you're doing since our last phone call. Is now a good time to talk? Yes Symptoms: Are you feeling about the same, better or worse since leaving the hospital? Better Weekly Outreach: 1st Outreach Medications: Do you have any questions about taking your medications, including which medications you should be on, or do you need refills on your medications? No Patient Questions / Concerns: Do you have any questions related to your discharge? No Appointment / TCM Follow-Up: Have you had a follow-up visit with your Primary Care Provider or Specialist since you were discharged? No Do you need any assistance with scheduling or changing your follow-up appointments? Patient declines appointment EDUCATION: COPD Education Provided When to call your provider Alessandra Osman RN December 13, 2024 2:00 [facility]03-12-2025 History of Present illness Narrative* Alessandra Osman RN - 12/13/2024 1:57 PM EDT Transitional Care Management (TCM) Follow-Up Note PCP Update / Actionable Items N/A - No specialty updates needed Patient Source: Yrf-rm-Uoxptof (OON) Discharge Outreach Summary: Spoke with patient, doing well at home. Taking it easy and pacing herself. Deniesany new or increased SOB. Does have home care coming. Does check pulse ox every morning - today 99% Contact: Contact made with patient: Yes Spoke to: Patient Validation: Validated the person spoken to is actively involved in the patient's care. The patient was identified by Name and Date of . I'd like to get an update on how you're doing since our last phone call. Is now a good time to talk? Yes Symptoms: Are you feeling about the same, better or worse since leaving the hospital? Better Weekly Outreach: 1st Outreach Medications: Do you have any questions about taking your medications, including which medications you should be on, or do you need refills on your medications? No Patient Questions / Concerns: Do you have any questions related to your discharge? No Appointment / TCM Follow-Up: Have you had a follow-up visit with your Primary Care Provider or Specialist since you were discharged? No Do you need any assistance with scheduling or changing your follow-up appointments? Patient declines appointment EDUCATION: COPD Education Provided When to call your provider Alessandra Osman RN December 13, 2024 2:00 PM documented in this encounterU[facility]03-[facility]25 NotePatient Outreach ([facility]) NANO AGUILAR ([id number]) 1940 F Date Time Provider Department 12/13/24 ALESSANDRA OSMAN During your visit today, we recorded the following information about you: Alessandra Osman RN 12/13/2024 2:02 PM Signed Transitional Care Management (TCM) Follow-Up Note PCP Update / Actionable Items N/A - No specialty updates needed Patient Source: Rhj-jt-Wuawzrj ([facility]ON) Discharge Outreach Summary: Spoke with patient, doing well at home. Taking it easy and pacing herself. Denies any new or increased SOB. Does have home care coming. Does check pulse ox every morning - today 99% Contact: Contact made with patient: Yes Spoke to: Patient Validation: Validated the person spoken to is actively involved in the patient's care. The patient was identified by Name and Date of . I'd like to get an update on how you're doing since our last phone call. Is now a good time to talk? Yes Symptoms: Are you feeling about the same, better or worse since leaving the hospital? Better Weekly Outreach: 1st Outreach Medications: Do you have any questions about taking your medications, including which medications you should be on, or do you need refills on your medications? No Patient Questions / Concerns: Do you have any questions related to your discharge? No Appointment / TCM Follow-Up: Have you had a follow-up visit with your Primary Care Provider or Specialist since you were discharged? No Do you need any assistance with scheduling or changing your follow-up appointments? Patient declines appointment EDUCATION: COPD Education Provided When to call your provider Alessandra Osman RN December 13, 2024 2:00 PM Allergies As of Date: 12/13/2024 Noted Allergy Reaction ALTSAVANNAH (RAMIPRIL) 12/06/2012 14 - Other: See Comments Comments: Cough BACTRIM (SULFAMETHOXAZOLE-TRIMETH*01/22/2011 8 - GI Upset Comments: Pt having GI upset and stomach pain LATEX 04/17/2009 9 - Itching Comments: Blisters RELAFEN (NABUMETONE) 06/09/2005 8 - GI Upset Date Reviewed: 07/19/2024 Reviewed by: Jannie Monahan LPN - Fully Assessed Reason for Visit: Transition Of Care [2564] Cmt: Follow up day 12 Prescriptions as of 12/13/2024 - HYDROcodone-acetaminophen (NORCO) 5-325 mg per tablet Take 1 tablet by mouth three times a day as needed for pain for up to 7 days. - TRELEGY ELLIPTA 100-62.5-25 mcg inhalation powder inhale 1 puff by mouth and INTO THE LUNGS once daily - albuterol (PROVENTIL) 2.5 mg /3 mL (0.083 %) nebulizer solution Use 3 mL via nebulizer every 4 hours as needed for wheezing/shortness of breath. DX: ICD9: 493.00, ICD10: J45.909 - fluticasone (FLONASE) 50 mcg/actuation nasal spray Use 1 [place] in each nostril once daily. - albuterol HFA (PROVENTIL HFA, VENTOLIN HFA) 90 mcg/actuation inhaler Inhale 2 Puffs as instructed. - loratadine (CLARITIN) 10 mg tablet TAKE 1 TABLET BY MOUTH EVERY DAY NEEDED FOR ALLERGIES - montelukast (SINGULAIR) 10 mg tablet Take 1 tablet by mouth once daily. - pantoprazole DR (PROTONIX) 20 mg tablet Take 1 tablet by mouth daily before breakfast. Take on empty stomach, 1/2 hr before meal. - isosorbide mononitrate ER (IMDUR) 30 mg 24 hr tablet Take 1 tablet by mouth once daily. - losartan (COZAAR) 50 mg tablet Take 1 tablet by mouth once daily. - nitroglycerin sublingual (NITROSTAT) 0.4 mg SL [...] tablet by mouth once daily. - FISH [id number] Q10 1,900 MG-640 MG-50 MG/2.5 G ORAL PACKET Take one(1) tablet daily. Problem List As Of Date 12/13/2024 Noted Resolved Extrinsic asthma [J45.909] 06/09/2005 08/01/2021 [...] malignant neoplasm of the cervix *08/28/2008 01/05/2012 Osteoarth (more content not included)...[facility]03-08-2025 Telephone encounter Note* Telephone Encounter - Alberto Herr MD - 12/09/2024 9:19 AM EST Noted. [facility]03-08-[facility] Miscellaneous Notes* Telephone Encounter - Alberto Herr MD - 12/09/2024 9:19 AM EST Noted. * Telephone Encounter - Linda Lowery RN - 12/08/2024 2:41 PM EST Juma PT calling from [facility] to report plan of care for patient and PT will visit patient one time aweek for four weeks. PT will work with patient on functional mobility. No call back necessary. Linda Lowery RN documented in this encounterU[facility] Center03-07-2025 Telephone encounter Note * Telephone Encounter - Linda Lowery RN - 12/08/2024 2:41 PM EST Juma PT calling from [facility] to report plan of care for patient and PT will visit patient one time aweek for four weeks. PT will work with patient on functional mobility. No call back necessary. Linda Lowery RN [facility]03-06-2025 Telephone encounter Note* Telephone Encounter - Violeta Infante RN - 12/07/2024 7:01 PM EST Pts son called and is notified of providers message. He voices understanding. Violeta Infante RN [facility]03-06-2025 Miscellaneous Notes* Telephone Encounter - Violeta Infante RN - 12/07/2024 7:01 PM EST Pts son called and is notified of providers message. He voices understanding. Violeta Infante RN * Telephone Encounter - Alberto Herr MD - 12/07/2024 6:21 PM EST The following approved medication requests have been transmitted electronically. Requested Prescriptions Signed Prescriptions Disp Refills HYDROcodone-acetaminophen (NORCO) 5-325 mg per tablet 21 tablet 0 Sig: Take 1 tablet by mouth three times a day as needed for pain for up to 7 days. Authorizing Provider: ALBERTO HERR MD * Telephone Encounter - Violeta Infante RN - 12/07/2024 3:02 PM EST Pt called in and reports she was just in the hospital and she can't go out, so she isn't able to make it to her pain management appointment. She states if she doesn't make her appointment they won't fill her pain pills for her. Pain management told her to ask her PCP to see if they would be willingto fill her pain pills for her. Pt reports she is taking the Staples differently than it is written on her medication list. It is written Hydrocodone-Acetaminophen 7.5-325, Pt states she takes 5-325 PRN TID for pain. Pt son said he last Rx was for 20 pills and she would want them sent to [facility]. Please call and advise Pt. Pts son states she is almost out of medication, and he doesn't think she should go out since she had fluid un her lungs. The patient has been identified by name and date of : Yes Caregiver verified no other encounters exist for this prescription request: Yes Caregiver confirmed with patient/requestor that no other refills are due, in the near future, with this provider at this time: Yes The last office visit in the department: 07/19/2024 Does the patient have a future office visit with this provider/department: Yes 01/22/2025 Requested Prescriptions Pending Prescriptions Disp Refills HYDROcodone-acetaminophen (NORCO) 5-325 mg per tablet Sig: Take 1 tablet by mouth three times a day as needed for pain. Violeta Infante RN December 07, 2024 3:13 PM documented in this encounterUc [facility] Center03-06-2025 Telephone encounter Note * Telephone Encounter - Alberto Herr MD - 12/07/2024 6:21 PM EST The following approved medication requests have been transmitted electronically. Requested Prescriptions Signed Prescriptions Disp Refills HYDROcodone-acetaminophen (NORCO) 5-325 mg per tablet 21 tablet 0 Sig: Take 1 tablet by mouth three times a day as needed for pain for up to 7 days. Authorizing Provider: ALBERTO HERR MD [facility]03-06-[facility] Telephone encounter Note* Telephone Encounter - Violeta Infante RN - 12/07/2024 3:02 PM EST Pt called in and reports she was just in the hospital and she can't go out, so she isn't able to make it to her pain management appointment. She states if she doesn't make her appointment they won't fill her pain pills for her. Pain management told her to ask her PCP to see if they would be willingto fill her pain pills for her. Pt reports she is taking the Staples differently than it is written on her medication list. It is written Hydrocodone-Acetaminophen 7.5-325, Pt states she takes 5-325 PRN TID for pain. Pt son said he last Rx was for 20 pills and she would want them sent to [facility]. Please call and advise Pt. Pts son states she is almost out of medication, and he doesn't think she should go out since she had fluid un her lungs. The patient has been identified by name and date of : Yes Caregiver verified no other encounters exist for this prescription request: Yes Caregiver confirmed with patient/requestor that no other refills are due, in the near future, with this provider at this time: Yes The last office visit in the department: 07/19/2024 Does the patient have a future office visit with this provider/department: Yes 01/22/2025 Requested Prescriptions Pending Prescriptions Disp Refills HYDROcodone-acetaminophen (NORCO) 5-325 mg per tablet Sig: Take 1 tablet by mouth three times a day as needed for pain. Violeta Infante RN December 07, 2024 3:13 PM [facility]03-03-2025 Telephone encounter Note* Telephone Encounter - Valentina Hutton MA - 12/04/2024 4:44 PM EST Left message on confidential vm Valentina Hutton MA [facility]03-03-2025 Miscellaneous Notes* Telephone Encounter - Valentina Hutton MA - 12/04/2024 4:44 PM EST Left message on confidential vm Valentina Hutton MA * Telephone Encounter - Brooke Cordoba APRN.CNP - 12/04/2024 4:25 PM EST Okay for orders Brooke Cordoba APRN.CNP * Telephone Encounter - Linda Lowery RN - 12/04/2024 3:35 PM EST Emmie VAZQUEZ calling from [facility] to report plan of care for patient and SN will visit patient two timesa week for three weeks and one time a week for one week. SN will work with patient on monitoring and education of CHF and COPD . Emmie requesting a verbal order to add a home health aide weekly for two weeks starting next week and an order for social sciences lecturer eval and treat to assist with community resources for private duty nursing services. Emmie requests call back at [phone]. Linda Lowery RN documented in this encounterUc [facility] Center03-03-2025 Telephone encounter Note * Telephone Encounter - Brooke Cordoba APRN.CNP - 12/04/2024 4:25 PM EST Okay for orders Brooke Cordoba APRN.CNP [facility]03-03-[facility] Telephone encounter Note* Telephone Encounter - Linda Lowery RN - 12/04/2024 3:35 PM EST Emmie VAZQUEZ calling from [facility] to report plan of care for patient and SN will visit patient two timesa week for three weeks and one time a week for one week. SN will work with patient on monitoring and education of CHF and COPD . Emmie requesting a verbal order to add a home health aide weekly for two weeks starting next week and an order for social sciences lecturer eval and treat to assist with community resources for private duty nursing services. Emmie requests call back at [phone]. Linda Lowery RN [facility]03-03-2025 NoteHNO ID: [id number] Author: LAURA COYLE LPN Service: ? Author Type: LICENSED NURSE Type: Progress Notes Filed: 12/04/2024 15:23 Note Text: Called pt to review rec'd hospitalization. Pt was discharged. On d/c [facility] increased pts lisix 40mg one twice daily. Pt reports she didn't need any O2 at discharge. She declined to arrange hospital follow up. Pt has appt with pcp 01/22/25. She will come for this. She sounds weak. Pt has HHS coming in. Pt will call if she needs anything sooner or she will ask [facility] to call.[facility]03-03-[facility]25 History of Present illness Narrative* Laura Coyle LPN - 12/04/2024 3:20 PM EST Called pt to review rec'd hospitalization. Pt was discharged. On d/c [facility] increased pts lisix 40mg one twice daily. Pt reports she didn't need any O2 at discharge. She declined to arrange hospital follow up. Pt has appt with pcp 01/22/25. She will come for this. She sounds weak. Pt has HHS coming in. Pt will call if she needs anything sooner or she will ask HHS to call. documented in this encounterUc Medical Center03-03-2025 Telephone encounter Note * Telephone Encounter - Prema Chapa RN - 12/04/2024 9:32 AM EST Rita with [facility] HH notified. Prema Chapa RN [facility]03-03-2025 Miscellaneous Notes* Telephone Encounter - Prema Chapa RN - 12/04/2024 9:32 AM EST Rita with [facility] notified. Prema Chapa RN * Telephone Encounter - Alberto Herr MD - 12/02/2024 10:36 PM EST I will follow with HH. * Telephone Encounter - Aleisha Anderson LPN - 12/01/2024 2:07 PM EST Rita from [facility] Home Health calling patient is to be discharged today may go home with oxygen, had hypoxic respiratory failure. Received orders for mcc and PT, start of care would be Wednesday. Asking if Dr Herr would follow patient and sign orders? Please advise documented in this encounterUc Medical Center03-03-2025 NotePatient Outreach (INTMWS) NANO AGUILAR ([id number]) 1940 F Date Time Provider Department 12/04/24 ALBERTO HERR INTMWS During your visit today, we recorded the following information about you: Laura Coyle LPN 12/04/2024 3:23 PM Signed Called pt to review rec'd hospitalization. Pt was discharged. On d/c [facility] increased pts lisix 40mg one twice daily. Pt reports she didn't need any O2 at discharge. She declined to arrange hospital follow up. Pt has appt with pcp 01/22/25. She will come for this. She sounds weak. Pt has HHS coming in. Pt will call if she needs anything sooner or she will ask HHS to call. Allergies As of Date: 12/04/2024 Noted Allergy Reaction ALTSAVANNAH (RAMIPRIL) 12/06/2012 14 - Other: See Comments Comments: Cough BACTRIM (SULFAMETHOXAZOLE-TRIMETH*01/22/2011 8 - GI Upset Comments: Pt having GI upset and stomach pain LATEX 04/17/2009 9 - Itching Comments: Blisters RELAFEN (NABUMETONE) 06/09/2005 8 - GI Upset Date Reviewed: 07/19/2024 Reviewed by: Jannie Monahan LPN - Fully Assessed Reason for Visit: Transition Of Care [4074] Prescriptions as of 12/04/2024 - TRELEGY ELLIPTA 100-62.5-25 mcg inhalation powder inhale 1 puff by mouth and INTO THE LUNGS once daily - albuterol (PROVENTIL) 2.5 mg /3 mL (0.083 %) nebulizer solution Use 3 mL via nebulizer every 4 hours as needed for wheezing/shortness of breath. DX: ICD9: 493.00, ICD10: J45.909 - fluticasone (FLONASE) 50 mcg/actuation nasal spray Use 1 [place] in each nostril once daily. - albuterol HFA (PROVENTIL HFA, VENTOLIN HFA) 90 mcg/actuation inhaler Inhale 2 Puffs as instructed. - loratadine (CLARITIN) 10 mg tablet TAKE 1 TABLET BY MOUTH EVERY DAY NEEDED FOR ALLERGIES - montelukast (SINGULAIR) 10 mg tablet Take 1 tablet by mouth once daily. - pantoprazole DR (PROTONIX) 20 mg tablet Take 1 tablet by mouth daily before breakfast. Take on empty stomach, 1/2 hr before meal. - isosorbide mononitrate ER (IMDUR) 30 mg 24 hr tablet Take 1 tablet by mouth once daily. - losartan (COZAAR) 50 mg tablet Take 1 tablet by mouth once daily. - nitroglycerin sublingual (NITROSTAT) 0.4 mg SL tablet Dissolve 1 tablet under the tongue. DISSOLVE ONE(1) TABLET UNDER THE TOUNGUE NEEDED FOR CHEST PAIN,EVERY 5 MIN X3 - carvedilol (COREG) 12.5 mg tablet Take 1 tablet by mouth twice daily. - atorvastatin (LIPITOR) 40 mg tablet Take 1 tablet by mouth once daily. - HYDROcodone-Acetaminophen (NORCO) 7.5-325 mg per tablet Take 1 tablet by mouth three times daily. Per pain management. - desoximetasone (TOPICORT) 0.25 % cream Apply [...] tablet by mouth once daily. - FISH BSO-SDJHY-3-COENZYME Q10 1,900 MG-640 MG-50 MG/2.5 G ORAL PACKET Take one(1) tablet daily. Problem List As Of Date 12/04/2024 Noted Resolved Extrinsic asthma [J45.909] 06/09/2005 08/01/2021 [...] 01/05/2012 Osteoarthritis, knee [M17.9] 06/12/2009 01/05/2012 Postmenopausal Atrophic Vaginitis [N95.2] 10/02/2009 Female stress incontinence [N39.3] 10/02/2009 03/06/2015 Arthritis of knee, degenerative [M17.9] 11/19/2011 Uterine prolapse without mention of vaginal wal*12/21/2011 03/06/2015 Degeneration of intervertebral disc [KEG0081] 03/06/2015 Personal history of renal artery stenosis [Z86.*08/23/2009 03/06/2015 Ganglion cyst [M67.40] 07/26/2012 05/17/2013 Occipital neuralgia [M54.81] 05/17/2013 01/05/2017 Lumbago [M54.50] 05/17/2013 Insomnia [G47.00] 05/17/2013 Emphysema of lung (HCC) [J43.9] 03/05/2015 LBBB (left bundle branch block) [I44.7] 03/05/2015 Thoracic or lumbosacral neuritis or radiculitis*03/07/2015 01/05/2017 Special screening for malignant neoplasms, colo*05/02/2015 05/02/2015 Atherosclerosis of [place]on coronary artery of na*07/03/2016 Bilateral carotid artery disease (HCC) [I77.9] 07/03/2016 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 [facility] Tele[facility] encounter Note* Telephone Encounter - Aleisha Anderson LPN - 12/01/2024 2:07 PM EST Rita from [facility] Home Health calling patient is to be discharged today may go home with oxygen, had hypoxic respiratory failure. Received orders for mcc and PT, start of care would be Wednesday. Asking if Dr Herr would follow patient and sign orders? Please advise [facility]-13[facility] Evaluation note* Diagnosis Onset Date Resolution Status Admit Date Bilateral carotid artery disease chronic November 16, 12:45pm CAD (coronary artery disease) chroni c November 16, 2024 12:45pm Chronic systolic congestive heart failure, NYHA class 2 chronic 2024 12:45pm COPD (chronic obstructive pulmonary disease) chronic November 12:45pm Dyslipidemia chronic November 12:45pm Essential hypertension chronic Fe bruary 2024 12:45pm History of stent insertion o f renal artery chronic November 16 12:45pm Mitral regurgitation chronic 2024 12:45pm Nonischemic cardiomyopathy chronic November 16, 2024 12:45pm Acute hypoxic respiratory failure inactive November 29 1:55pm CHF exacerbation inactive November 29, 2024 1:55pm COPD exacerbation inactive 2024 1:55pm Dizziness acute January 13 12:24pm Headache acute January 13 12:24pm Inability to walk acute January 022024 12:24pm [facility] Work Phone: 1(519) 782-114911-11-2024 Telephone encounter Note* Telephone Encounter - Aurea Kwan LPN - 08/14/2024 3:59 PM EST Called [facility], they do not have Trelegy in stock but it is on order for tomorrow. Aurea Kwan LPN [facility]11-11-2024 Miscellaneous Notes* Telephone Encounter - Aurea Kwan LPN - 08/14/2024 3:59 PM EST Called [facility], they do not have Trelegy in stock but it is on order for tomorrow. Aurea Kwan LPN * Telephone Encounter - Anabelle Bradley LPN - 08/14/2024 1:42 PM EST Patient called in and states she was trying to picking belt operator her Trelegy at [facility] and in [place] and they are not doing auto refills so she is unable to picking belt operator the prescription. She is not sure if a new prescription needs called in. Anabelle Bradley LPN documented in this encounter[facility]11-[facility]24 Telephone encounter Note * Telephone Encounter - Anabelle Bradley LPN - 08/14/2024 1:42 PM EST Patient called in and states she was trying to picking belt operator her Trelegy at [facility] and in [place] and they are not doing auto refills so she is unable to picking belt operator the prescription. She is not sure if a new prescription needs called in. Anabelle Bradley LPN [facility]11-11-2024 Telephone encounter Note* Telephone Encounter - Aurea Kwan LPN - 08/14/2024 12:41 PM EST 90 day supply pended Aurea Kwan LPN [facility]11-11-2024 Miscellaneous Notes* Telephone Encounter - Aurea Kwan LPN - 08/14/2024 12:41 PM EST 90 day supply pended Aurea Kwan LPN documented in this encounterU[facility] Center10-21-2024 Note* Addendum Note - Aurea Kwan LPN - 07/24/2024 10:17 AM EDTAddended by: AUREA KWAN on: 07/24/2024 10:17 AM Modules accepted: Orders [facility]10-21-2024 Miscellaneous Notes* Addendum Note - Aurea Kwan LPN - 07/24/2024 10:17 AM EDTAddended by: AUREA KWAN on: 07/24/2024 10:17 AM Modules accepted: Orders * Telephone Encounter - Anabelle Bradley LPN - 07/24/2024 10:07 AM EDT Patient called in and states she cannot reach [facility] and wondered if the rx for the albuterol nebs were sent and able to be picked up. She also wanted you to know that her Trelegy was supposed to cost $3 but it cost her $30. Let patient know the cost would be up to what her insurance covers but would send a note making you aware. Anabelle Bradley LPN * Telephone Encounter - Aurea Kwan LPN - 07/21/2024 1:56 PM EDT Called [facility] and spoke with Suki in pharmacy. She reports the Albuterol nebs require a prior authorization, however, [facility] is billing her Medicare D plan. I advised Suki that because the patient does not reside in a manager terminal care facility, this medication should be billed to her Medicare B plan. [facility] reports they do not have this information on record and the patient needs to call customer care to initiate. Patient notified re: same. She would like to transfer the script to [facility] as they have her Medicare B information on record. 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 Aurea Kwan LPN * Telephone Encounter - Lian Matthews LPN - 07/21/2024 1:50 PM EDT Patient called into office stating that she was notified by [facility] that they need to speak with pulmonary staff before refilling medication. albuterol (PROVENTIL) 2.5 mg /3 mL (0.083 %) nebulizer solution 1080 mL 1 07/19/2024 01/15/2025 Sig: Use 3 mL via nebulizer every 4 hours as needed for wheezing/shortness of breath. DX: ICD9: 493.00, ICD10: J45.909 Sent to pharmacy as: albuterol (PROVENTIL) 2.5 mg /3 mL (0.083 %) nebulizer solution Class: Normal Route: NEBULIZATION -UNSPEC Order: [id number] E-Prescribing Status: Receipt confirmed by pharmacy (07/19/2024 11:16 AM EDT) Please advise and call patient after speaking with [facility]. Lian Matthews LPN documented in this encounterUc Medical Center10-21-2024 Telephone encounter Note * Telephone Encounter - Anabelle Bradley LPN - 07/24/2024 10:07 AM EDT Patient called in and states she cannot reach [facility] and wondered if the rx for the albuterol nebs were sent and able to be picked up. She also wanted you to know that her Trelegy was supposed to cost $3 but it cost her $30. Let patient know the cost would be up to what her insurance covers but would send a note making you aware. Anabelle Bradley LPN [facility]10-18-[facility]24 Telephone encounter Note* Telephone Encounter - Aurea Kwan LPN - 07/21/2024 1:56 PM EDT Called [facility] and spoke with Suki in pharmacy. She reports the Albuterol nebs require a prior authorization, however, [facility] is billing her Medicare D plan. I advised Suki that because the patient does not reside in a manager terminal care facility, this medication should be billed to her Medicare B plan. [facility] reports they do not have this information on record and the patient needs to call customer care to initiate. Patient notified re: same. She would like to transfer the script to [facility] as they have her Medicare B information on record. 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 Aurea Kwan LPN [facility]-18-[facility]24 Telephone encounter Note* Telephone Encounter - Lian Matthews LPN - 07/21/2024 1:50 PM EDT Patient called into office stating that she was notified by [facility] that they need to speak with pulmonary staff before refilling medication. albuterol (PROVENTIL) 2.5 mg /3 mL (0.083 %) nebulizer solution 1080 mL 1 07/19/2024 01/15/2025 Sig: Use 3 mL via nebulizer every 4 hours as needed for wheezing/shortness of breath. DX: ICD9: 493.00, ICD10: J45.909 Sent to pharmacy as: albuterol (PROVENTIL) 2.5 mg /3 mL (0.083 %) nebulizer solution Class: Normal Route: NEBULIZATION -UNSPEC Order: [id number] E-Prescribing Status: Receipt confirmed by pharmacy (07/19/2024 11:16 AM EDT) Please advise and call patient after speaking with [facility]. Lian Matthews LPN [facility] Work Phone: [phone] Telephone encounter Note* Telephone Encounter - Alberto Herr MD - 07/20/2024 7:05 PM EDT Noted. [facility]-17-[facility] Miscellaneous Notes* Telephone Encounter - Alberto Herr MD - 07/20/2024 7:05 PM EDT Noted. * Telephone Encounter - Aleisha Anderson LPN - 07/20/2024 2:15 PM EDT Helena from [facility] calling did OT evaluation today and patient declines any further visits. No need to return call to [facility]. documented in this encounterUc [facility] Center10-17-2024 Telephone encounter Note * Telephone Encounter - Aleisha Anderson LPN - 07/20/2024 2:15 PM EDT Helena from [facility] calling did OT evaluation today and patient declines any further visits. No need to return call to [facility]. [facility] History of Present illness Narrative* Alberto Herr MD - 07/19/2024 12:23 PM EDT This note was created using [employer]. Subjective Patient presents with: [facility] Ellen Aguilar is a 84 year old female here with son Wan. She developed progressive dyspnea and edema and was admitted 07/11 to 07/13 for CHF. She responded to diuresis. She was discharged on furosemide and potassium. Her ejection fraction had decreased further from 35% to 20%. COPD was contributory to her dyspnea. She was also suspected to have pulmonary h ypertension. She was feeling better, and reported her appetite was improving. She was discharged with home health, PT. Home health found multiple inhalers stockpiled and usage of inhalers, as well as multiple cough preparations used interchangeably and probably in highdoses. HH Aid was ordered, as well as palliative care consult. Review of Systems Constitutional: Positive for appetite change. Negative for diaphoresis, fatigue and fever. HENT: Negative for congestion and trouble swallowing. Respiratory: Positive for shortness of breath. Negative for cough, chest tightness and wheezing. Cardiovascular: Positive for leg swelling. Negative for chest pain and palpitations. Gastrointestinal: Negative for abdominal pain, constipation, diarrhea and vomiting. Genitourinary: Negative for difficulty urinating. Skin: Negative for wound. Neurological: Negative for dizziness, light-headedness and headaches. 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 albuterol HFA (PROVENTIL HFA, VENTOLIN HFA) 90 mcg/actuation inhaler Inhale 2 Puffs as instructed. albuterol (PROVENTIL) 2.5 mg /3 mL (0.083 %) nebulizer solution Use 3 mL via nebulizer every 4 hours as needed for wheezing/shortness of breath. DX: ICD9: 493.00, ICD10: J45.909 zyfqxinfqai-ghbwdqlhq-hwytszej (TRELEGY ELLIPTA) 100-62.5-25 mcg inhalation powder Inhale 1 Puff asinstructed once daily. loratadine (CLARITIN) 10 mg tablet TAKE 1 TABLET BY MOUTH EVERY DAY NEEDED FOR ALLERGIES montelukast (SINGULAIR) 10 mg tablet Take 1 tablet by mouth once daily. pantoprazole DR (PROTONIX) 20 mg tablet [...] 1 tablet by mouth once daily. FISH OXP-RZNVA-9-COENZYME Q10 1,900 MG-640 MG-50 MG/2.5 G ORAL PACKET Take one(1) tablet daily. Current Facility-Administered Medications Medication Dose Route Frequency denosumab 60 mg injection (PROLIA) 60 mg SUBCUTANEOUS Q 6 MONTH Objective BP 98/64 (BP Site: Left Arm, BP Position: Sitting, BP Cuff Size: Large Adult) Pulse 97 Temp 36.3 C (97.3 F) (Temporal) Wt 66.6 kg (146 lb 13.2 oz) SpO2 97% BMI 26.34 kg/m Physical Exam Constitutional: General: She is not in acute distress. Comments: On wheelchair. HENT: Head: Normocephalic. Nose: No congestion or rhinorrhea. Eyes: Conjunctiva/sclera: Conjunctivae normal. Cardiovascular: Rate and Rhythm: Normal rate and regular rhythm. Heart sounds: No murmur heard. No gallop. Pulmonary: Effort: No respiratory distress. Breath sounds: No stridor. Decreased breath sounds present. No wheezing, rhonchi or rales. Abdominal: Palpations: Abdomen is soft. Tenderness: There is no abdominal tenderness. Musculoskeletal: Comments: Trace ankle edema. Neurological: General: No focal deficit present. Mental Status: She is alert. Assessment and Plan 1. Congestive heart failure, unspecified HF chronicity, unspecified heart failure type (HCC) - ICD9: 428.0, ICD10: I50.9 (primary diagnosis) - Compensated. EF worse. We discussed palliative care and hospice care. Consult was pending, but she was open to shifting focus to comfort care. She was encouraged to discuss palliative care and hospice care with csm consultant; as well as have consensus with her family. I will support her decision. - Continue current medications - Follow up with cardiology. - 2. Encounter for immunization - ICD9: V03.89, ICD10: Z23 - PFIZER-BIONTECH COVID-19 VACCINE AGE 12+ YR (COMIRNATY) 3. Non-ischemic cardiomyopathy (HCC) - ICD9: 425.4, ICD10: I42.8 - Worse. See #1. 4. Pulmonary emphysema, unspecified emphysema type (HCC) - ICD9: 492.8, ICD10: J43.9 - Medications being adjusted and simplified by pulmonary. 5. Asthma-COPD overlap syndrome (HCC) - ICD9: 493.20, ICD10: J44.89 - Stable. 6. Chronic hyponatremia - ICD9: 276.1, ICD10: E87.1 - Monitor. Patient expressed increased difficulty leaving home for appointments. We agreed to reschedule annual wellness in spring. Return sooner if needed. Alberto Herr MD documented in this encounterUc [facility] Center10-16-2024 History of Present illness Narrative* Stephanie Hernandez PA-C - 07/19/2024 11:04 AM EDT Patient: Nano Aguilar PCP: Alberto Herr MD CC: follow up/med review HPI: Nano Aguilar 84 year old female former remote smoker with PMH significant for asthma COPD overlap, bronchiectasis, JUAN MIGUEL, GERD, HLD who presents for routine follow-up. Last office visit 03/06/2022. Patient was recently admitted to [facility] 07/11/2024 for increased SOB and lower extremity edema. Treated for CHF exacerbation with diuresis. As a result of this admission, [facility] noticed patient had a basket full of inhalers and nebulized medications in the home. Most of which were out dated. Today, patient denies significant cough, sputum production, or hemoptysis. Occasional wheezing. Exertional dyspnea with minimal effort. Patient is unclear as to which inhalers she is currently using.At times, she is using Wixela and Albuterol via nebulizer, however, she also notes that she is using Spiriva. No fevers, chills, or night sweats. No unintended weight loss. Lower extremity edema. No GERD/heartburn. Patient follows with [facility]. PAST MEDICAL HISTORY Diagnosis Date Allergic rhinitis, cause unspecified 06/09/2005 Arthritis bilat knees, and neck Asthma Atherosclerosis of [place] coronary artery of [place] heart without angina pectoris 07/03/2016 Mild to moderate CAD Benign neoplasm of colon Adenomatous. Bilateral carotid artery stenosis 07/03/2016 Bronchiectasis without acute exacerbation (HCC) 08/18/2006 Chronic hyponatremia 07/01/2011 SIADH Degeneration of intervertebral disc Disorder of bone [...] without mention of vaginal wall prolapse 12/21/2011 Allergies: Altace [Ramipril] Other: See Comments Comment:Cough Bactrim [Sulfametho* GI Upset Comment:Pt having GI upset and stomach pain Latex Itching Comment:Blisters Relafen [Nabumetone] GI Upset fluticasone-salmeterol (WIXELA INHUB) 250-50 mcg/dose inhaler^Inhale 1 Puff as instructed two timesa day.^Disp: ^Rfl: fluticasone (FLONASE) 50 mcg/actuation nasal spray^Use 1 [place] in each nostril once daily.^Disp: ^Rfl: albuterol HFA (PROVENTIL HFA, VENTOLIN HFA) 90 mcg/actuation inhaler^Inhale 2 Puffs as instructed.^Disp: ^Rfl: loratadine (CLARITIN) 10 mg tablet^TAKE 1 TABLET BY MOUTH EVERY DAY NEEDED FOR ALLERGIES^Disp: 90 tablet^Rfl: 3 montelukast (SINGULAIR) 10 mg tablet^Take 1 tablet by mouth once daily.^Disp: 90 tablet^Rfl: [address] (PROTONIX) 20 mg tablet^Take 1 tablet by mouth daily before breakfast. Take on empty stomach, 1/2 hr before meal.^Disp: 90 tablet^Rfl: 3 tiotropium (SPIRIVA WITH HANDIHALER) 18 mcg inhalation capsule^1 capsule once daily. INHALE CONTENTS OF 1 CAPSULE INSTRUCTED^Disp: 90 capsule^Rfl: 3 ipratropium 20 mcg-albuterol 100 mcg (COMBIVENT RESPIMAT) 20-100 mcg/actuation inhaler^Inhale 1 Puff as instructed four times daily as needed (wheezing, shortness of breath).^Disp: 1 Each^Rfl: 1 isosorbide mononitrate ER (IMDUR) 30 mg 24 hr tablet^Take 1 tablet by mouth once daily.^Disp: ^Rfl: losartan (COZAAR) 50 mg tablet^Take 1 tablet by mouth once daily.^Disp: 90 tablet^Rfl: 3 nitroglycerin sublingual (NITROSTAT) 0.4 mg SL tablet^Dissolve 1 tablet under the tongue. DISSOLVE ONE(1) TABLET UNDER THE TOUNGUE NEEDED FOR CHEST PAIN,EVERY 5 MIN X3^Disp: 25 tablet^Rfl: 3 carvedilol (COREG) 12.5 mg tablet^Take 1 tablet by mouth twice daily.^Disp: ^Rfl: atorvastatin (LIPITOR) 40 mg tablet^Take 1 tablet by mouth once daily.^Disp: 90 tablet^Rfl: 3 HYDROcodone-Acetaminophen (NORCO) 7.5-325 mg per tablet^Take 1 tablet by mouth three times daily. Per pain management.^Disp: ^Rfl: 0 desoximetasone (TOPICORT) 0.25 % cream^Apply 1 application to affected area once daily as needed (Apply sparingly to neck, face. Avoid eyes and mouth.).^Disp: 30 g^Rfl: 1 albuterol (PROVENTIL) 2.5 mg /3 mL (0.083 %) nebulizer solution^Use 3 mL via nebulizer every 4 hours as needed for Wheezing/Shortness of Breath. DX: ICD9: 493.00, ICD10: J45.909^Disp: 150 Vial^Rfl: 6 CALCIUM CARBONATE (CALTRATE 600 ORAL)^Take 2 tablets by mouth once daily.^Disp: ^Rfl: MULTIVIT WITH CALCIUM,IRON,MIN (MULTIPLE VITAMIN, WOMENS ORAL)^Take 1 capsule by mouth once daily.^Disp: ^Rfl: FISH UEP-KBSPV-4-COENZYME Q10 1,900 MG-640 MG-50 MG/2.5 G ORAL PACKET^Take one(1) tablet daily.^Disp: ^Rfl: 0 budesonide (RHINOCORT AQ) 32 mcg/actuation nasal spray^Use 2 Sprays in each nostril once daily. Rinse mouth after use.^Disp: ^Rfl: (Patient not taking: Reported on 07/19/2024) fluticasone-salmeterol (ADVAIR DISKUS) 250-50 mcg/dose inhaler^Inhale 1 Puff as instructed two times a day. Rinse and gargle mouth after use with water.^Disp: 1 Each^Rfl: 5 (Patient not taking: Reported on 07/19/2024) cholecalciferol, Vitamin D3, 400 unit Tab^Take 1 tablet by mouth once daily.^Disp: ^Rfl: 0 aspirin(ECOTRIN LOW STRENGTH 81 MG TAB)^Take one(1) tablet daily.^Disp: ^Rfl: 0 (Patient not taking: Reported on 07/19/2024) ascorbic acid(VITAMIN C 500 MG TAB)^Take one(1) tablet daily.^Disp: ^Rfl: 0 (Patient not taking: Reported on 07/19/2024) Social History Tobacco Use Smoking status: Former Current packs/day: 0.00 Average packs/day: 1 pack/day for 20.0 years (20.0 ttl pk-yrs) Types: Cigarettes Start date: 10/04/1964 Quit date: 10/04/1984 Years since quittin.8 Smokeless tobacco: Never Substance Use Topics Alcohol use: Yes Comment: Occasionally wine Drug use: No Family History Problem Relation Age of Onset Cancer Mother LUNG Heart Father MA,CAD Stroke Father other (BLACK LUNG) Father No Known Problems Sister No Known Problems Sister No Known Problems Brother No Known Problems Brother No Known Problems Brother other (testicular cancer) Brother Pneumonia Brother Cancer Brother LUNG other (ASTROCYTOMA) Brother Brain Ca PAST SURGICAL HISTORY Procedure Laterality Date BIOPSY BREAST remote ? left or right benign COLONOSCOPY FLX DX W/COLLJ SPEC WHEN PFRMD 10/20/2004 Colonoscopy COLONOSCOPY FLX DX W/COLLJ SPEC WHEN PFRMD 07/16/2008 Colonoscopy COLONOSCOPY FLX DX W/COLLJ SPEC WHEN PFRMD 05/02/2015 Colonoscopy IR ABDOMINAL AORTOGRAM 12-11-08 RENAL ARTERY LEFT HEART CATH,PERCUTANEOUS 06/12/2016 Cardiac cath, L heart LUNG SURGERY HX PAST SURGICAL HISTORY OF 1998 HYSTEROSCOPY CURRETTAGE OF THE UTERUS PAST SURGICAL HISTORY OF 09/2014 lumbar pain injections. PULMONARY FUNCTION TEST 10/26/00 RMVL LUNG OTHER THAN PNEUMONECTOMY 1 LOBE LOBECT 1992 LLL R/T PRECANCEROUS SLCTV CATHJ EA 1ST ORD ABDL PEL/LXTR ART BRNCH 12-11-08 RENAL ARTERY, Left renal stent. TONSILLECTOMY & ADENOIDECTOMY <AGE 12 remotely I reviewed the past medical history, family history, social history and surgical history with changes noted above and updated in EMR. IMMUNIZATIONS Immunization History Administered Date(s) Administered COVID-19 original vaccine, full dose, monovalent (MODERNA) 10/31/2020 11/28/2020 09/18/2021 COVID-19 vaccine, age 12+ yr (PFIZER-BIONTECH COMIRNATY) 07/28/2023 04/24/2024 COVID-19 vaccine, age 12+ yr, bivalent (Tradescape-BIONTECH) 07/08/2022 TD Adult 04/19/2009 influenza (HD-IIV3) vaccine, age 65+ yr, high dose, trivalent, PF (FLUZONE HIGH-DOSE) 07/11/2015 07/03/2016 07/08/2017 07/13/2018 07/28/2019 06/23/2020 influenza (HD-IIV4) vaccine, age 65+ yr, high dose, quadrivalent, PF (FLUZONE HIGH-DOSE) 07/12/2021 07/08/2022 07/28/2023 influenza (IIV3) vaccine, trivalent, PF (AFLURIA, FLUARIX, FLULAVAL, FLUVIRIN, FLUZONE) 08/03/2013 influenza vaccine, unspecified formulation 07/30/2006 08/09/2007 08/09/2008 07/18/2009 07/01/2011 07/07/2012 07/10/2013 novel influenza (A2E1-32) vaccine, unspecified formulation 10/23/2009 pneumococcal conjugate (PCV13) vaccine, 13 valent (PREVNAR 13) 03/06/2015 pneumococcal polysaccharide (PPV23) vaccine, 23 valent (PNEUMOVAX 23) 08/28/1974 06/08/2000 10/04/2006 07/03/2016 respiratory syncytial virus (RSV) vaccine, adjuvanted (AREXVY) 08/24/2023 zoster (ZVL) vaccine, live (ZOSTAVAX) 02/13/2009 ROS: All other systems reviewed as negative except for what is noted in HPI and review of systems. PHYSICAL EXAMINATION: BP (P) 98/64 Pulse (P) 97 Resp (P) 16 SpO2 (P) 96% Gen: No acute distress. Cooperative with examination. Elderly frail in wheelchair. HEENT: Normocephalic. Sclera, conjunctiva clear. No thrush. Resp: No stridor, accessory respiratory muscle use, supra-sternal or intercostal retractions. No wheezes, crackles, or rhonchi. CV: Regular rythm. Heart tones normal. Radial pulses normal. Ext: Warm and well perfused. No clubbing, cyanosis. Trace bilateral edema. Skin: No rash, ecchymoses. Neuro: Mental status normal. Affect normal. No tremor. DATA: Laboratory and Imaging: Last Spirometry SPIROMETRY BASELINE ONLY Collected: 03/06/2022 2:15 PM (Final result) Narrative: [facility] [address] [place] [address] Test Date: 2022-03-06 Pat Name: NANO AGUILAR Department: Room: Gender: Female Marionette Performer: : 1940 Requested By: Order Number: [id number] Reading MD: Valentina Camargo M.D. Interpretive Statements ATS/ERS acceptability and repeatability standards for spirometry met. IMPRESSION: Spirometry indicates moderate obstruction. Electronically Signed On 03-06-2022 17:00:24 EDT by Valentina Camargo M.D. Site: WO ID: [id number] Name: NANO AGUILAR Visit Date: 03/06/2022 Doctor: Marionette Performer: Sydni Rubin Age: 82 Date of : 1940 Gender: Female Race: White Height: 63.00 in Weight: 152.00 lbs BSA: 1.721 Diagnosis: Dyspnea: Cough: Wheeze: Tobacco Product: Years Smoked: Packs/Day: Years Quit: Medications: ..Past Smoker Comments: ATS/ERS acceptability and repeatability standards for spirometry met. Review Status: Not Reviewed PRE-BRONCH POST-BRONCH Pred LLN ULN Actual %Pred Actual %Chng SPIROMETRY FVC (L) 2.34 1.61 3.12 2.27 96 FEV1 (L) 1.77 1.22 2.30 1.03 58 FEV1/FVC 0.77 0.61 0.90 0.45 59 FEF25 (L/sec) 1.00 FEF50 (L/sec) 2.68 1.07 4.29 0.34 12 FEF75 (L/sec) 0.29 0.10 0.93 0.11 36 VAU10-75 (L/sec) 1.41 0.56 2.73 0.24 17 PEF L/s (L/sec) 4.22 2.57 5.88 2.48 58 FIVC (L) 2.38 FIF50 (L/sec) 2.87 PIF (L/sec) 2.91 Time (sec) 16.30 PRABHA (L) 0.03 FET PEF (sec) 0.07 Arterial blood gas: No results found for: PH, PCO2, PO2, HCO3, BE, LACT CT Chest other findings: Last CT Chest - Impression Only CT CHEST WWO CONTRAST Collected: 04/13/2008 9:46 AM (Final result) Last XR Chest - Impression Only XR CHEST 2V FRONTAL/LAT Exam End: 03/06/2021 2:30 PM (Final result) Impression: IMPRESSION: No acute radiographic abnormality. Mild diffuse interstitial prominence. Stable ... ASSESSMENT/PLAN: 1. Chronic obstructive pulmonary disease, unspecified COPD type (HCC) - ICD9: 496, ICD10: J44.9 (primary diagnosis) 2. Encounter for medication review - ICD9: V58.69, ICD10: Z79.899 Reviewed medications with patient. Will change to once daily Trelegy. Rinse mouth after each use to help prevent oral thrush. -this replaces Wixela and Spiriva. Patient may use Albuterol HFA or via nebulizer for rescue. Will follow up in 6 months, sooner if needed. - ALBUTEROL SULFATE 2.5 MG/3 ML (0.083 %) SOLUTION FOR NEBULIZATION - TRELEGY ELLIPTA 100 MCG-62.5 MCG-25 MCG POWDER FOR INHALATION Portions of this documentation were copied and pasted from previous office visit notes in order to provide a cohesive continuity of the history. The note has been reviewed and edited and updated as necessary. Stephanie Hernandez PA-C documented in this encounterUc Medical Center10-15-2024 Telephone encounter Note * Telephone Encounter - Jannie Monhaan LPN - 07/18/2024 4:27 PM EDT Please recommendation left on identified vm for [facility] Nurse. Patient is coming into the office, 07/19/2024, will have Dr. Herr write order for [facility] for Palliative Care. Jannie Monahan LPN [facility] Miscellaneous Notes* Telephone Encounter - Jannie Monahan LPN - 07/18/2024 4:27 PM EDT Please recommendation left on identified vm for Angela [facility] Nurse. Patient is coming into the office, 07/19/2024, will have Dr. Herr write order for [facility] for Palliative Care. Jannie Monahan LPN * Telephone Encounter - Alberto Herr MD - 07/18/2024 4:15 PM EDT 1) Okvitaliy JOSEPH POC. 2) Use only Mucinex 600 mg tablet BID prn. Discard other cough medications. 3) Refer to [facility] for palliative care. 4) Discard inhalers > 6 months . * Telephone Encounter - Judy Mcwilliams LPN - 07/17/2024 8:40 AM EDT Angela with [facility] Nursing calls with the following update on pt: -Nursing will see pt three times x 1 week, two times x 1 week, then 1 time x 2 weeks. -Requesting an order for: Aide for once a week x 2 weeks -Requesting an order for Palliative Care. Angela reports pt is on the cusp of needing palliative vshospice. -pt currently is taking otc cough medication: Nyquil Severe, Mucinex 600 mg tabs, Mucinex Max coughsyrup, and Robitussin Max cough syrup. Angela reports pt is using these interchangeably on a daily basis. Pt is also using a keanu cup as a measuring cup. Angela reports she tried to discuss with pt that what she has is a CHF cough but pt is convinced she has a cold. Angela is requesting pcp discuss this with pt at appt 07/19. Angela also reports pt has a basket full of inhalers and is using inhalers. Pt has an appt with Pulmonolgy on 07/19 also. Judy Mcwilliams LPN documented in this encounter[facility] Center10-15-2024 Telephone encounter Note * Telephone Encounter - Alberto Herr MD - 07/18/2024 4:15 PM EDT 1) Yahir JOSEPH POC. 2) Use only Mucinex 600 mg tablet BID prn. Discard other cough medications. 3) Refer to [facility] for palliative care. 4) Discard inhalers > 6 months . [facility] Telephone encounter Note* Telephone Encounter - Ellen Cm, GEORGE - 07/17/2024 1:38 PM EDT [facility]- reporting PT POC: will see patient one more time, per patient request for re-check. Will see patient in a couple more weeks for re-evaluation. [facility] Miscellaneous Notes* Telephone Encounter - Ellen Cm RN - 07/17/2024 1:38 PM EDT [facility]: will see patient one more time, per patient request for re-check. Will see patient in a couple more weeks for re-evaluation. documented in this encounterUc Medical Center10-14-2024 Telephone encounter Note * Telephone Encounter - Aurea Kwan LPN - 07/17/2024 9:08 AM EDT Noted. Message left on appointment to fax information to [facility]. Aurea Kwan LPN [facility] Miscellaneous Notes* Telephone Encounter - Aurea Kwan LPN - 07/17/2024 9:08 AM EDT Noted. Message left on appointment to fax information to [facility]. Aurea Kwan LPN * Telephone Encounter - Judy Mcwilliams LPN - 07/17/2024 8:52 AM EDT Pt has an appt with pulmonology on 07/19/24. Angela, a [facility] Nurse, calls to report she did an intake on pt for HH. Angela reports pt has a basket full of inhalers and nebulizer medication. Angela reports that pt currently is using medication. Angela wanted to let pulmonology know this ahead of appt so this can be discussed with pt at appt. Angela is requesting an updated med list from pulmonology as to what pt is to be taking as far as inhalers and neb solution. Fax updated med list to [facility] @ [phone]. Judy Mcwilliams LPN documented in this encounterUc Medical Center10-14-2024 Telephone encounter Note * Telephone Encounter - Jduy Mcwilliams LPN - 07/17/2024 8:52 AM EDT Pt has an appt with pulmonology on 07/19/24. Angela, a [facility] Nurse, calls to report she did an intake on pt for HH. Angela reports pt has a basket full of inhalers and nebulizer medication. Angela reports that pt currently is using medication. Angela wanted to let pulmonology know this ahead of appt so this can be discussed with pt at appt. Angela is requesting an updated med list from pulmonology as to what pt is to be taking as far as inhalers and neb solution. Fax updated med list to [facility] @ [phone]. Judy Mcwilliams LPN [facility] Telephone encounter Note* Telephone Encounter - Judy Mcwilliams LPN - 07/17/2024 8:40 AM EDT Angela with [facility] Nursing calls with the following update on pt: -Nursing will see pt three times x 1 week, two times x 1 week, then 1 time x 2 weeks. -Requesting an order for: HH Aide for once a week x 2 weeks -Requesting an order for Palliative Care. Angela reports pt is on the cusp of needing palliative vshospice. -pt currently is taking otc cough medication: Nyquil Severe, Mucinex 600 mg tabs, Mucinex Max coughsyrup, and Robitussin Max cough syrup. Angela reports pt is using these interchangeably on a daily basis. Pt is also using a keanu cup as a measuring cup. Angela reports she tried to discuss with pt that what she has is a CHF cough but pt is convinced she has a cold. Angela is requesting pcp discuss this with pt at appt 07/19. Angela also reports pt has a basket full of inhalers and is using inhalers. Pt has an appt with Pulmonolgy on 07/19 also. Judy Mcwilliams LPN [facility] Telephone encounter Note* Telephone Encounter - Linda Lowery RN - 07/12/2024 2:13 PM EDT Call placed to Rita and notified of below. Linda Lowery RN [facility] Miscellaneous Notes* Telephone Encounter - Linda Lowery RN - 07/12/2024 2:13 PM EDT Call placed to Rita and notified of below. Linda Lowery RN * Telephone Encounter - Alberto Herr MD - 07/12/2024 1:23 PM EDT Okay. * Telephone Encounter - Linda Lowery RN - 07/12/2024 12:27 PM EDT Rita with [facility] calls to ask if provider will follow their home health orders for SN,PT, OT. Patient discharging from [facility] tomorrow 07/13/2024 after treatment for heart failure. Rita requests call back at [phone]. Linda Lowery RN documented in this encounterUc Medical Center10-09-2024 Telephone encounter Note * Telephone Encounter - Alberto Herr MD - 07/12/2024 1:23 PM EDT Okay. [facility] Tele[facility] encounter Note* Telephone Encounter - Linda Lowery RN - 07/12/2024 12:27 PM EDT Rita with [facility] calls to ask if provider will follow their home health orders for SN,PT, OT. Patient discharging from [facility] tomorrow 07/13/2024 after treatment for heart failure. Rita requests call back at [phone]. Linda Lowery RN [facility] Instructions* Patient Instructions* Alberto Herr MD - 04/24/2024 1:16 PM EDT Use RHINOCORT nasal spray instead of FLONASE. documented in this encounterUc Medical Center07-22-2024 History of Present illness Narrative* Alberto Herr MD - 04/24/2024 12:58 PM EDT This note was created using [employer]. Subjective Nano Aguilar is a 84 year old female. Shestarted Prolia and this was well tolerated. Her next dose was in Jun. She complained of daily coughing spells, associated with rhinorrhea, despite takingher inhalers. She had worsening hyponatremia and hypokalemia. I recommended she stop spironolactone and she informed he her heel seat laster agreed. Review of Systems Constitutional: Negative for fatigue and fever. HENT: Positive for postnasal drip and rhinorrhea. Negative for sore throat. Respiratory: Positive for cough. Negative for chest tightness, shortness of breath and wheezing. Cardiovascular: Negative for chest pain, palpitations and leg swelling. Gastrointestinal: Negative for abdominal pain. Neurological: Negative for dizziness and headaches. 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 Rinse and gargle mouth after use with water. loratadine (CLARITIN) 10 mg tablet TAKE 1 TABLET BY MOUTH EVERY DAY NEEDED FOR ALLERGIES montelukast (SINGULAIR) 10 mg tablet Take 1 tablet by mouth once daily. pantoprazole DR (PROTONIX) 20 mg tablet [...] MG TAB) Take one(1) tablet daily. FISH KGA-OZXLF-7-COENZYME Q10 1,900 MG-640 MG-50 MG/2.5 G ORAL PACKET Take one(1) tablet daily. spironolactone (ALDACTONE) 25 mg tablet Take 1 tablet by mouth once daily. (Patient not taking: Reported on 04/24/2024) Current Facility-Administered Medications Medication Dose Route Frequency denosumab 60 mg injection (PROLIA) 60 mg SUBCUTANEOUS Q 6 MONTH Objective BP 114/80 (BP Site: Left Arm, BP Position: Sitting, BP Cuff Size: Large Adult) Pulse 76 Temp 36.5 C (97.7 F) (Temporal) Resp 20 Wt 69.4 kg (153 lb) BMI 27.45 kg/m Physical Exam Constitutional: General: She is not in acute distress. HENT: Nose: Mucosal edema and rhinorrhea present. Right Turbinates: Swollen and pale. Left Turbinates: Swollen and pale. Right Sinus: No maxillary sinus tenderness or frontal sinus tenderness. Left Sinus: No maxillary sinus tenderness or frontal sinus tenderness. Mouth/Throat: Pharynx: Oropharynx is clear. Cardiovascular: Rate and Rhythm: Normal rate and regular rhythm. Pulmonary: Effort: No respiratory distress. Breath sounds: Wheezing present. No rhonchi or rales. Musculoskeletal: Right lower leg: No edema. Left lower leg: No edema. Neurological: Mental Status: She is alert. Latest Ref Rng 04/13/2024 Glucose 74 - 99 mg/dL 90 BUN 7 - 21 mg/dL 14 Creatinine 0.58 - 0.96 mg/dL 0.75 Sodium 136 - 144 mmol/L 132 (L) Potassium 3.7 - 5.1 mmol/L 5.5 (H) Chloride 98 - 107 mmol/L 97 (L) CO2 22 - 30 mmol/L 25 Anion Gap 8 - 15 mmol/L 10 Calcium 8.5 - 10.2 mg/dL 9.8 eGFR >=60 mL/min/1.73m 78 Osmolality 275 - 300 mOsm/kg 280 Legend: (L) Low (H) High Assessment and Plan 1. Hyponatremia - ICD9: 276.1, ICD10: E87.1 (primary diagnosis) Back to baseline. 2. Hyperkalemia - ICD9: 276.7, ICD10: E87.5 Secondary to medication. She informed me her heel seat laster has follow up labs scheduled. 3. Allergic rhinitis, unspecified seasonality, unspecified trigger - ICD9: 477.9, ICD10: J30.9 - She is already on FLONASE. Try switching Rhinocort, OTC. - BUDESONIDE 32 MCG/ACTUATION NASAL SPRAY 4. Asthma-COPD overlap syndrome (HCC) - ICD9: 493.20, ICD10: J44.89 No recent follow up. - CONSULT TO PULMONARY MEDICINE 5. Need for COVID-19 vaccine - ICD9: V04.89, ICD10: Z23 - PFIZER-BIONTECH COVID-19 VACCINE (2022- SEASON) AGE 12+ YR Alberto Herr MD documented in this encounterUc Medical Center07-15-2024 Telephone encounter Note * Telephone Encounter - Valery Samuel LPN - 04/17/2024 8:52 AM EDT Pt given results and faxed copies to End User Support Specialist. Valery Samuel LPN [facility] Telephone encounter Note* Telephone Encounter - Valery Samuel LPN - 04/17/2024 8:52 AM EDT ----- Message from Alberto Herr MD sent at 04/15/2024 9:30 AM EDT ----- Sodium is better and back to baseline. However, potassium is elevating. I think she should stop spironolactone. We can fax her lab results with this comments to her heel seat laster, Dr. Drew as well. [facility] Miscellaneous Notes* Telephone Encounter - Valery Samuel LPN - 04/17/2024 8:52 AM EDT Pt given results and faxed copies to End User Support Specialist. Valery Samuel LPN * Telephone Encounter - Valery Samuel LPN - 04/17/2024 8:52 AM EDT ----- Message from Alberto Herr MD sent at 04/15/2024 9:30 AM EDT ----- Sodium is better and back to baseline. However, potassium is elevating. I think she should stop spironolactone. We can fax her lab results with this comments to her heel seat laster, Dr. Drew as well. documented in this encounterUc Medical Center07-02-2024 Telephone encounter Note * Telephone Encounter - Valery Samuel LPN - 04/04/2024 4:30 PM EDT Spoke with pt and information listed below given. Pt verbalizes understanding. Valery Samuel LPN [facility] Miscellaneous Notes* Telephone Encounter - Valery Samuel LPN - 04/04/2024 4:30 PM EDT Spoke with pt and information listed below given. Pt verbalizes understanding. Valery Samuel LPN * Telephone Encounter - Jannie Monahan LPN - 04/04/2024 1:59 PM EDT Left message for Patient to call & speak to nurse. Jannie Monahan LPN * Telephone Encounter - Alberto Herr MD - 04/04/2024 1:48 PM EDT Yes, follow instructions since this is worse from baseline. * Telephone Encounter - Judy Mcwilliams LPN - 04/03/2024 4:58 PM EDT Pt notified of results. Pt reports Dr. Drew put her on Spironolactone 25 mg daily. Pt reports she's been taking that for about two weeks. Do you still want pt to follow orders below. Please review and advise. Judy Mcwilliams LPN * Telephone Encounter - Jannie Monahan LPN - 04/03/2024 2:13 PM EDT Left message to call & speak to nurse re: results. Jannie Monahan LPN * Telephone Encounter - Jannie Monahan LPN - 04/03/2024 1:50 PM EDT ----- Message from Alberto Herr MD sent at 04/03/2024 9:19 AM EDT ----- Chronic low sodium, lower than usual. Any new symptoms malaise, headaches? How is her fluid intake?If no new symptoms, restrict fluids to ~6 cups per day except in excessive heat. Repeat BMP, osmolality in 3 weeks. documented in this encounterUc Medical Center07-02-2024 Telephone encounter Note * Telephone Encounter - Jannie Monahan LPN - 04/04/2024 1:59 PM EDT Left message for Patient to call & speak to nurse. Jannie Monahan LPN [facility] Telephone encounter Note* Telephone Encounter - Alberto Herr MD - 04/04/2024 1:48 PM EDT Yes, follow instructions since this is worse from baseline. [facility] Tele[facility] encounter Note* Telephone Encounter - Judy Mcwilliams LPN - 04/03/2024 4:58 PM EDT Pt notified of results. Pt reports Dr. Drew put her on Spironolactone 25 mg daily. Pt reports she's been taking that for about two weeks. Do you still want pt to follow orders below. Please review and advise. Judy Mcwilliams LPN [facility] Telephone encounter Note* Telephone Encounter - Jannie Monahan LPN - 04/03/2024 2:13 PM EDT Left message to call & speak to nurse re: results. Jannie Monahan LPN [facility] Telephone encounter Note* Telephone Encounter - Jannie Monahan LPN - 04/03/2024 1:50 PM EDT ----- Message from Alberto Herr MD sent at 04/03/2024 9:19 AM EDT ----- Chronic low sodium, lower than usual. Any new symptoms malaise, headaches? How is her fluid intake?If no new symptoms, restrict fluids to ~6 cups per day except in excessive heat. Repeat BMP, osmolality in 3 weeks. [facility] Tele[facility] encounter Note* Telephone Encounter - Rivera Jeffers MA - 02/01/2024 8:28 AM EDT Pharmacy benefits verified - [facility] Miscellaneous Notes* Telephone Encounter - Rivera Jeffers MA - 02/01/2024 8:28 AM EDT Pharmacy benefits verified - [facility] * Telephone Encounter - Brooke Cordoba APRN.CNP - 01/31/2024 3:42 PM EDT [facility]? Brokoe Cordoba APRN.CNP * Telephone Encounter - Valentina Hutton MA - 01/31/2024 9:30 AM EDT Insurance does not cover symbicort please consider alternative: Advair Diskus WIXELA INH Please send to [facility] and patient notified aware of change Valentina Hutton MA documented in this encounterUc Medical Center04-29-2024 Telephone encounter Note * Telephone Encounter - Brooke Cordoba APRN.CNP - 01/31/2024 3:42 PM EDT [facility]? Brooke Cordoba APRN.HIGH REACH OPERATOR [facility]-29-[facility] Telephone encounter Note* Telephone Encounter - Valentina Hutton MA - 01/31/2024 9:30 AM EDT Insurance does not cover symbicort please consider alternative: Advair Diskus WIXELA INH Please send to [facility] and patient notified aware of change Valentina Hutton MA [facility] History of Present illness Narrative* Eliana Maria LPN - 11/17/2023 1:17 PM EST Patient presents for Prolia injection. Denies any problems at this time. Patient instructed on any SE of medication, verbalized understanding and agreed to proceed with treatment. Tolerated injectionwell. Eliana Maria LPN documented in this encounterUc Medical Center12-04-2023 Miscellaneous Notes* Telephone Encounter - Hui Arnold - 09/06/2023 3:13 PM EST Patient has been identified by name and [...] applicable Please advise. Thank you. Hui Arnold. * Telephone Encounter - Shannan Le - 09/06/2023 10:16 AM EST Patient has been identified by name and date of : Yes Requested Prescriptions Pending Prescriptions Disp Refills budesonide-formoterol (SYMBICORT) 160-4.5 mcg/actuation inhaler 10.2 g 5 Sig: Inhale 2 Puffs as instructed two times a day. RX INSTRUCTIONS: Patient aware RX will be sent to pharmacy. No need to notify patient. Shannan Hunter documented in this encounterUc Medical Center11-10-2023 History of Present illness Narrative* Tiana Chen RT(R) - 08/13/2023 3:00 PM EST Radiology Service Progress Note PATIENT NAME: Nano Aguilar DATE OF SERVICE: August 13, 2023 TIME: 4:16 PM PATIENT IDENTITY VERIFICATION COMPLETED USING TWO (2) IDENTIFIERS: Name and Date of confirmedby patient verbally. FALL SCREENING: Has the patient [...] 13, 2023 4:16 PM documented in this encounterUc Medical Center10-30-2023 Miscellaneous Notes* Telephone Encounter - Juanis Fuentes OCCA - 08/02/2023 9:02 AM EDT TC to patient who verbalized understanding of providers message below with no questions at this time. SEAMUS Handy * Telephone Encounter - Juanis Fuentes OCCA - 08/02/2023 9:01 AM EDT ----- Message from Alberto Herr MD sent at 08/02/2023 8:57 AM EDT ----- Labs within normal limits. CT scan as scheduled. documented in this [facility]10-25-2023 Instructions* Patient Instructions* Alberto Herr MD - 07/28/2023 3:38 PM EDT Have you ever planned for future healthcare decisions with a power of assistant county attorney, living will, or advance directives? Yes. Have you shared those records with your doctor? No and No. Please bring a copyto your next appointment or email to [email or web address] GET VACCINES FROM YOUR PHARMACY. RSV Vaccine(1 - 1-dose 60+ series) Never done Shingrix Vaccine(2 of 3) due on 04/10/2009 DTaP,Tdap,Td Vaccine(1 - Tdap) due on 04/20/2009 documented in this encounterUc Medical Center10-25-2023 History of Present illness Narrative* Alberto Herr MD - 07/28/2023 3:17 PM EDT This note was created using [employer]. Subjective Nano Aguilar is a 83 year old female. She noted a mass of her left lower abdomen sometime afterher last visit. She had occasional discomfort but no real pain and no other symptoms so she did notseek medical attention until now. Her other concern was recurrent vaginal discharge and itching. She was self managing with over the counter vaginal creams with temporary relief. Other conditions were stable. Her blood pressure was variable, but generally better than today's readings. She had a cardiology follow up scheduled. Her carotid disease was monitored by her heel seat laster and reported stable. Review of Systems Constitutional: Negative for appetite change, fatigue, fever and unexpected weight change. HENT: Negative. Respiratory: Negative for cough, shortness of breath and wheezing. Cardiovascular: Negative for chest pain, palpitations and leg swelling. Gastrointestinal: Negative for abdominal distention, blood in stool, constipation, diarrhea, nauseaand vomiting. Genitourinary: Positive for vaginal discharge. 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 FISH KRX-TNKUX-9-COENZYME Q10 1,900 MG-640 MG-50 MG/2.5 G ORAL PACKET Take one(1) tablet daily. No current facility-administered medications for this visit. Objective BP 147/90 (BP Site: Left Arm, BP Position: Sitting, BP Cuff Size: Large Adult) Pulse 72 Resp 16 Ht 159 cm (5' 2.6) Wt 69.3 kg (152 lb 12.8 oz) [...] vaccine - ICD9: V04.89, ICD10: Z23 - [email or web address] COVID-19 VACCINE (2022- SEASON) AGE 12+ YR 4. Bilateral carotid artery stenosis - ICD9: 433.10, 433.30, ICD10: I65.23 Stable, monitored by her heel seat laster. 5. Asthma-COPD overlap syndrome - ICD9: 493.20, [...] - ICD9: 272.4, ICD10: E78.49 Controlled. Alberto Herr MD * Alberto Herr MD - 07/28/2023 3:07 PM EDT Nano Aguilar is a 83 year old [...] healthy diet Daily. ADLs requiring help Yes. 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 Safety precautions in home/vehicle Yes. Smoke, vape, chews tobacco No Difficulty hearing Yes. Has hearing aids. Difficulty seeing No. Current Providers Specialists: I have reviewed specialist-related care of the patient in the medical record. [facility], cardiology. Dr. Dayron Diamond, Pain Management. Dr. Barbosa, ophthalmology. Dr.K. Scott,ENT. Medical/Family history review Reviewed and updated problem list, medical/surgical/family/social history, medications, and allergies. Opioid use review Opioid Medications (last 90 days) Some values may be hidden. Unless noted otherwise, only the newest values recorded on each date aredisplayed. Opioid Medications HYDROcodone-Acetaminophen (NORCO) 7.5-325 mg per [...] with patient, and I recommended no further interventionat this time. Time spent in depression screening [...] Personalized prevention plan provided documented in this encounterUc Medical Center09-26-2023 Miscellaneous Notes* Telephone Encounter - Laura Coyle LPN - 06/29/2023 2:02 PM EDT [facility] appears they needs a rx for 90 capsules for 90 days. Please send new rx. No PA is needed, This call took over 20 minutes. * Telephone Encounter - Laura Coyle LPN - 06/28/2023 3:25 PM EDT Closed 06/28/2023 11:48 AM Close reason: Prior Authorization not required for patient/medication Note from payer: Drug is covered by current benefit plan. No further PA activity needed * Telephone Encounter - Laura Coyle LPN - 06/28/2023 11:47 AM EDT Electronic PA requested for review. * Telephone Encounter - Catarina Robbins - 06/28/2023 11:21 AM EDT Patient call said her ins is rejecting her Rx for Spiriva that she has been on for years / requesting an appeal to the ins from her pcp or a different Rx that they will pay for Please advise documented in this encounterUc Medical Center09-25-2023 Miscellaneous Notes* Telephone Encounter - Catarina Robbins - 06/28/2023 11:28 AM EDT Patient has been identified by name and [...] and advise. Catarina Hunter documented in this encounterUc Medical Center06-28-2023 Miscellaneous Notes* Telephone Encounter - Linda Lowery RN - 03/31/2023 12:02 PM EDT Call placed to patient and notified of below. Patient reports she will be in next week to have labscompleted. Linda Lowery RN * Telephone Encounter - Alberto Herr MD - 03/30/2023 5:45 PM EDT Fasting labs ordered 04/02/23 or next week. * Telephone Encounter - Linda Lowery RN - 03/29/2023 4:02 PM EDT Patient calls to ask about lab orders. Patient reports she was supposed to come in for labs but they . Not able to see and orders to re pend. 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 Patient has been identified by name and date of : Yes, Provider Dr Herr Date 02/05/23 Time 1320. Patient phones for [...] you. Violeta Infante RN documented in this encounterUc Medical Center04-12-2023 Instructions* Patient Instructions* Alberto Herr MD - 01/13/2023 3:08 PM EDT FASTING BLOOD WORK ANY TIME SOON. documented in this encounterU[facility] Center04-12-2023 History of Present illness Narrative* Alberto Herr MD - 01/13/2023 3:06 PM EDT This note was created using [employer]. Subjective Nano Aguilar is a 83 year old female. She was managing okay after the loss of her spouse. She had support from family, friends, and her congregational. He listed conditions were stable. 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 FISH TKQ-NNGUP-2-COENZYME Q10 1,900 MG-640 MG-50 MG/2.5 G ORAL [...] with patient, and I recommended no further interventionat this time. Assessment and Plan 1. Asthma-COPD [...] by [facility]. 5. 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 (HCC) - ICD9: 414.01, 413.9, ICD10: I25.118 See #4. Alberto Herr MD * Alberto Herr MD - 01/13/2023 2:59 PM EDT This note was created using NoteWriter. 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 FISH FBP-UONMB-2-COENZYME Q10 1,900 MG-640 MG-50 MG/2.5 G ORAL [...] Exam Assessment and Plan documented in this encounterUc [facility] Center03-28-2023 Miscellaneous Notes* Telephone Encounter - Stephanie Gore Pss - 12/29/2022 2:46 PM EDT Pharmacy verified in [facility] Patient has been identified by name and [...] advise. Stephanie Gore Pss documented in this encounterUc Medical Center03-22-2023 Miscellaneous Notes* Telephone Encounter - Jannie Harding Taniya KENNY - 12/23/2022 10:23 AM EDT Patient is having a hard time getting [facility], she has tried several times. Asking for 90 day supply to go to [facility], 14 day supply to [facility]. Patient has been identified by name and [...] Please advise. Thank you. Jannie Monahan LPN * Telephone Encounter - Shannan Hunter - 12/23/2022 9:08 AM EDT Patient has been identified by name and date of : Yes Requested Prescriptions Pending Prescriptions Disp Refills pantoprazole DR (PROTONIX) 20 mg tablet 90 tablet 3 Sig: Take 1 tablet by mouth daily before breakfast. Take on empty stomach, 1/2 hr before meal. RX INSTRUCTIONS: Patient aware RX will be sent to pharmacy. No need to notify patient. Shannan Hunter documented in this encounterUc Medical Center01-10-2023 Miscellaneous Notes* Telephone Encounter - Rivera Jeffers Ma - 10/13/2022 2:35 PM EST Mailed as requested. Rivera Jeffers Ma * Telephone Encounter - Johana Taylor - 10/13/2022 10:31 AM EST Nano Aguilar is calling Alberto Herr MD office today requesting handicap placard renewal. Please mail to home address. Address has been verified documented in this encounterUc Medical Center01-06-2023 Miscellaneous Notes* Telephone Encounter - Nancy Hunter - 10/09/2022 8:44 AM EST Patient calling on status. She states pharmacy has not received request. * Telephone Encounter - Jannie Monahan LPN - 10/06/2022 3:59 PM EST Patient has been identified by name and [...] Please advise. Thank you. Jannie Monahan LPN * Telephone Encounter - Tata Hunter - 10/06/2022 9:13 AM EST Patient has been identified by name and date of : Yes Requested Prescriptions Pending Prescriptions Disp Refills montelukast (SINGULAIR) 10 mg tablet 90 tablet 3 Sig: Take 1 tablet by mouth once daily. RX INSTRUCTIONS: Patient aware RX will be sent to pharmacy. No need to notify patient. Tata Hunter documented in this encounterUc Medical Center12-14-2022 Miscellaneous Notes* Telephone Encounter - Jannie Monahan LPN - 09/16/2022 8:58 AM EST Patient notified. Jannie Monahan LPN * Telephone Encounter - Jannie Monahan LPN - 09/16/2022 8:55 AM EST ----- Message from Alberto Herr MD sent at 09/15/2022 4:26 PM EST ----- Normal CBC. documented in this encounterUc Medical Center12-09-2022 Miscellaneous Notes* Telephone Encounter - Rivera Jeffers Ma - 09/11/2022 2:14 PM EST Patient notified, verbalized understanding. Patient states that she will come in next Wednesday for blood work but does not want to schedule anoffice visit at this time. * Telephone Encounter - Alberto Herr MD - 09/11/2022 1:49 PM EST Stop Pepto Bismol. Monitor if black stool continues. Appointment with Brooke next week with complete blood count. If symptoms persist, worsen in any way, go to ER. * Telephone Encounter - Irena Prater RN - 09/11/2022 1:14 PM EST Patient has had black stool x 2 days. This is after patient did not have bowel movement x 3 days onSunday. Patient had taken laxative from [facility]. Patient had a bowel movement that was black. Patient was having abdominal cramping so she took Pepto-Bismol. Patient then had a black bowel movement on Wednesday with blood on Toilet Paper. Patient has not had a bowel movement since. Patient does have intermittent abdominal cramping. Per Triage protocol patient was recommended to go to ER. Patient declines this because she wants toknow what Dr. Herr says Reason for Disposition Black or tarry [...] bowel movement since. Patient states that she hasabdominal cramps. 3. CAUSE: Denies 4. OTHER SYMPTOMS: States stool was not hard and not diarrhea. Did have abdominal pain. Protocols used: Stools - Unusual Haodt-VQIZP-WB, Rectal Iueawyic-FVJKJ-IJ documented in this encounterUc Medical Center10-05-2022 Instructions* Patient Instructions* Alberto Herr MD - 07/08/2022 3:29 PM EDT IF YOU FALL OR PASS OUT AGAIN, CONTACT THE HEART GROUP FOR FURTHER WORK UP. documented in this encounterUc Medical Center10-05-2022 History of Present illness Narrative* Alberto Herr MD - 07/08/2022 3:10 PM EDT This note was created using [employer]. 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 FISH GSH-KVIOC-7-COENZYME Q10 1,900 MG-640 MG-50 MG/2.5 G ORAL [...] SEASONAL QUADRIVALENT HIGH DOSE AGE 65+ - [employer] COVID-19 BIVALENT BOOSTER VACCINE, AGE 12+ YR [...] METABOLIC PANEL - LIPID PANEL BASIC Alberto Herr MD documented in this encounterUc Medical Center09-07-2022 Miscellaneous Notes* Telephone Encounter - Ellen Cm RN - 06/10/2022 1:14 PM EDT Patient has been identified by name and [...] you. Ellen Cm RN documented in this encounterUc Medical Center07-08-2022 History of Present illness Narrative* RT Jadyn(R) - 04/10/2022 12:30 PM EDT Radiology Service Progress Note PATIENT NAME: Nano Aguilar DATE OF SERVICE: April 10, 2022 TIME: 12:48 PM PATIENT IDENTITY VERIFICATION COMPLETED USING TWO (2) IDENTIFIERS: Name and Date of confirmedby patient verbally. FALL SCREENING: Has the patient had 2 falls in the last year or 1 fall with injury or currently using an Ambulatory Assistive Device (Walker, Cane, Wheelchair, Crutches, etc.)? No PATIENT GENDER DATA: Female. status: : No status: NO. PATIENT RELEVANT IMPLANT DATA REVIEWED: Not Applicable RADIOLOGY DEPARTMENT: General X-ray: Exam(s) Completed: Lower Extremity X- Ray(s): Knee, AP / LAT Right and Wt. Bearing PERIPHERAL IV DATA: Not applicable SIGNED BY: RT Jadyn(R) April 10, 2022 12:48 PM documented in this encounterUc Medical Center06-03-2022 History of Present illness Narrative* LAZARA Catalan - 03/06/2022 1:58 PM EDT PULM FUNCTION SMARTBLOCK: Provider: Stephanie Hernandez PA-C Assisting Tech: LAZARA Catalan Spirometry: 1 System: [id number] documented in this [facility]04-06-2022 Miscellaneous Notes* Telephone Encounter - Jannie Monahan LPN - 01/07/2022 1:12 PM EDT Patient notified of below results, verbalized understanding. Jannie Monahan LPN * Telephone Encounter - Jannie Monahan LPN - 01/07/2022 1:12 PM EDT ----- Message from Brooke Rothman APRN.CNP sent at 01/07/2022 11:28 AM EDT ----- Please let the patient know her labs were normal Brooke Rothman APRN.CNP documented in this encounterUc Medical Center04-01-2022 History of Present illness Narrative* Alberto Herr MD - 01/02/2022 9:08 AM EDT This note was created using NoteWriter. Subjective [...] for lack of efficacy. She was on senior care hydrocodone for back pain. Review of Systems [...] Lbbb (Left Bundle Branch Block) Atherosclerosis of [place] Coronary Artery of [place] Heart With Stable Angina Pectoris (Hcc) Bilateral [...] as needed for sedation for up to 90days. carvedilol (COREG) 12.5 mg tablet Take 1 [...] MG TAB) Take one(1) tablet daily. FISH EMK-MTJDD-9-COENZYME Q10 1,900 MG-640 MG-50 MG/2.5 G ORAL [...] (Temporal) Resp 16 Ht 160 cm (5' 3) Wt 69.4 kg (153 lb) BMI 27.10 [...] 433.30, ICD10: I65.23 Asymptomatic. 8. 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 (HCC) - ICD9: 414.01, 413.9, ICD10: I25.118 Per cardiology. Alberto Herr MD * Alberto Herr MD - 01/02/2022 8:55 AM EDT Medicare Yearly Visit Medical B eligibilty date 2002 Date of last exam 10/30/2020 PAST MEDICAL HISTORY Diagnosis Date Allergic rhinitis, cause unspecified 06/09/2005 Arthritis bilat knees, and neck Asthma Atherosclerosis of bent[place] coronary artery of benton heart without angina pectoris 07/03/2016 Mild to [...] Left renal stent. COLONOSCOP W/ OR W/O [facility] SPEC 10/20/2004 Colonoscopy COLONOSCOP W/ OR W/O [facility] SPEC 07/16/2008 Colonoscopy COLONOSCOP W/ OR W/O [facility] SPEC 05/02/2015 Colonoscopy IR ABDOMINAL AORTOGRAM 12-11-08 [...] of Onset Cancer Mother LUNG Heart Father MA,CAD Stroke Father other (BLACK LUNG) Father Cancer [...] bars in the bathroom, lack of handrails onthe stairs or have poor lighting? No Hearing Evaluation: wears hearing aids PHYSICAL EXAM BP 132/78 (BP Site: Left Arm, BP Position: Sitting, BP Cuff Size: Regular Adult) Pulse 78 Temp 36.1 C (97 F) (Temporal) Resp 16 Ht 160 cm (5' 3) Wt 69.4 kg (153 lb) BMI 27.10 [...] Exercise - ADVANCE CARE PLAN DISCUSSION Alberto Herr MD documented in this encounterUc Medical Center10-25-2021 History of Present illness Narrative* Neema Vizcarra RT(R) - 07/28/2021 10:50 AM EDT Radiology Service Progress Note PATIENT NAME: Nano Aguilar DATE OF SERVICE: July 28, 2021 TIME: 10:47 AM PATIENT IDENTITY VERIFICATION COMPLETED USING TWO (2) IDENTIFIERS: Name and Date of confirmedby patient verbally. FALL SCREENING: Has the patient had 2 falls in the last year or 1 fall with injury or currently using an Ambulatory Assistive Device (Walker, Cane, Wheelchair, Crutches, etc.)? Yes, Patient High Riskfor Falls What interventions were put in place to prevent falls during this visit? Offered Assistance with Transfers/Clothing and Instructed Patient to Remain Seated (Not on Exam Table) Until Exam PATIENT GENDER DATA: Female. status: : No status: NO. PATIENT RELEVANT IMPLANT DATA REVIEWED: Not Applicable RADIOLOGY DEPARTMENT: General X-ray: Exam(s) Completed: Spine X-Ray(s): Lumbar AP / LAT / L5-S1 Pelvis X-Ray: Pelvis with Hip Left Lower Extremity X-Ray(s): Knee, AP / Lat / Tunne / Merchant Left and Wt. Bearing PERIPHERAL IV DATA: Not applicable SIGNED BY: RT Angela(R) July 28, 2021 10:47 AM documented in this encounterUc Medical Center07-28-2021 History of Present illness Narrative* Neema Vizcarra RT(R) - 04/30/2021 3:50 PM EDT Radiology Service Progress Note PATIENT NAME: Nano Aguilar DATE OF SERVICE: April 30, 2021 TIME: 4:05 PM PATIENT IDENTITY VERIFICATION COMPLETED USING TWO (2) IDENTIFIERS: Name and Date of confirmedby patient verbally. FALL SCREENING: Has the patient had 2 falls in the last year or 1 fall with injury or currently using an Ambulatory Assistive Device (Walker, Cane, Wheelchair, Crutches, etc.)? No PATIENT GENDER DATA: Female. status: : No status: NO. PATIENT RELEVANT IMPLANT DATA REVIEWED: Not Applicable RADIOLOGY DEPARTMENT: General X-ray: Exam(s) Completed: Lower Extremity X- Ray(s): Knee, AP / Lat / Tunne / Merchant Left and Wt. Bearing PERIPHERAL IV DATA: Not applicable SIGNED BY: RT Angela(R) April 30, 2021 4:05 PM documented in this encounterUc Medical Center07-30-2015 History of Past illness Narrative* Problem Noted [...] of this encounter (statuses as of 01/02/2022) [facility] illness Narrative* Problem Noted [...] of this encounter (statuses as of 01/07/2022) [facility] of Past illness Narrative* Problem Noted [...] of this encounter (statuses as of 03/06/2022) [facility] of Past illness Narrative* Problem Noted [...] of this encounter (statuses as of 04/11/2022) [facility] of Past illness Narrative* Problem Noted [...] of this encounter (statuses as of 06/10/2022) [facility] of Past illness Narrative* Problem Noted [...] of this encounter (statuses as of 07/08/2022) [facility] of Past illness Narrative* Problem Noted [...] of this encounter (statuses as of 09/12/2022) [facility] of Past illness Narrative* Problem Noted [...] of this encounter (statuses as of 09/16/2022) [facility] of Past illness Narrative* Problem Noted [...] of this encounter (statuses as of 10/10/2022) [facility] of Past illness Narrative* Problem Noted [...] of this encounter (statuses as of 10/13/2022) [facility] of Past illness Narrative* Problem Noted [...] of this encounter (statuses as of 12/23/2022) [facility] of Past illness Narrative* Problem Noted [...] of this encounter (statuses as of 12/29/2022) [facility] of Past illness Narrative* Problem Noted [...] of this encounter (statuses as of 01/14/2023) [facility] illness Narrative* Problem Noted [...] of this encounter (statuses as of 02/06/2023) [facility] Narrative* Problem Noted [...] of this encounter (statuses as of 03/31/2023) [facility] illness Narrative* Problem Noted [...] of this encounter (statuses as of 06/28/2023) [facility] Narrative* Problem Noted [...] of this encounter (statuses as of 07/03/2023) [facility] Narrative* Problem Noted [...] of this encounter (statuses as of 07/29/2023) [facility] Narrative* Problem Noted [...] of this encounter (statuses as of 08/02/2023) [facility] Narrative* Problem Noted [...] of this encounter (statuses as of 08/14/2023) [facility] Narrative* Problem Noted [...] of this encounter (statuses as of 08/14/2023) [facility] Narrative* Problem Noted [...] of this encounter (statuses as of 09/07/2023) [facility] Narrative* Problem Noted [...] of this encounter (statuses as of 11/17/2023) [facility]* Diagnosis Medicare annual wellness visit, subsequent- Primary Routine general medical examination at a health care facility Allergic rhinitis, unspecified seasonality, unspecified trigger Essential hypertension Unspecified essential hypertension Other hyperlipidemia Asthma-COPD overlap syndrome (HCC) Pulmonary emphysema, unspecified emphysema type (HCC) Bilateral carotid artery stenosis Occlusion and stenosis of carotid artery without mention of cerebral infarction 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 (HCC) documented [facility] encounter [facility]* Diagnosis Asthma-COPD overlap syndrome (HCC) documented [facility] encounter [facility]* Diagnosis Near syncope- Primary Syncope and collapse Need for influenza vaccination Need for prophylactic vaccination and inoculation against influenza Need for COVID-19 vaccine Non-ischemic cardiomyopathy (HCC) Other primary cardiomyopathies Bilateral carotid artery stenosis Occlusion and stenosis of carotid artery without mention of cerebral infarction Essential hypertension Unspecified essential hypertension [facility]* Diagnosis Onset Date Resolution Status Chest pressure acute Bilateral carotid artery disease chronic CAD (coronary artery disease) chronic Essential hypertension chron ic HLD (hyperlipidemia) chronic LBBB (left bundle branch block) chronic Nonischemic cardiomyopathy c hronic Renovascular hypertension ch ronic Valvular heart disease chron ic [facility] Work Phone: Evaluation note* Diagnosis Black stools- Primary Nonspecific abnormal finding in stool contents documented [facility] encounter [facility]* Diagnosis Osteoporotic compression fracture of spine with routine healing Asthma-COPD overlap syndrome (HCC) [facility]* Diagnosis Asthma-COPD overlap syndrome (HCC)- Primary Allergic rhinitis, unspecified seasonality, unspecified trigger Pulmonary emphysema, unspecified emphysema type (HCC) Non-ischemic cardiomyopathy (HCC) Other primary cardiomyopathies 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 (HCC) documented [facility] this [facility]* Diagnosis Osteoporotic compression fracture of spine with routine healing- Primary Other hyperlipidemia 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 (HCC) documented in this encounter [facility] noteNo assessment information availableWChillicothe [facility] Work Phone: Evaluation note* Diagnosis Asthma-COPD overlap syndrome Centrilobular emphysema (HCC) Other emphysema documented [facility] this encounter [facility]* Diagnosis Medicare annual wellness visit, subsequent- [...] pain Other hyperlipidemia [facility] this [facility]* Diagnosis Abdominal mass, left lower quadrant Abdominal or pelvic swelling, mass, or lump, left lower quadrant Left lower quadrant abdominal pain documented in this [facility]* Diagnosis Asthma-COPD overlap syndrome Centrilobular emphysema (HCC) Other emphysema documented [facility]* Diagnosis Osteoporotic compression fracture of spine with routine healing- Primary [facility]* Diagnosis Onset Date Resolution Status Bilateral carotid artery disease chronic CAD (coronary artery disease) chronic COPD (chronic obstructive pulmonary disease) chronic Dyslipidemia chronic Essential hypertension chron ic Mitral regurgitation chronic [facility] Work Phone: Evaluation note* Diagnosis Chronic hyponatremia- Primary Hyposmolality and/or hyponatremia [facility]* Diagnosis Non-ischemic cardiomyopathy (HCC)- Primary Other primary cardiomyopathies [facility]* Diagnosis Hyponatremia- Primary Hyposmolality and/or hyponatremia Hyperkalemia Hyperpotassemia Allergic rhinitis, unspecified seasonality, unspecified trigger Asthma-COPD overlap syndrome (HCC) Need for COVID-19 vaccine documented in this encounter [facility]* Diagnosis Fall, initial encounter documented in this encounter [facility]* Diagnosis Acute pain of left knee documented in this encounter [facility]* Diagnosis Chronic obstructive pulmonary disease, unspecified COPD type (HCC)- Primary Encounter for medication review Encounter for long-term (current) use of other medications documented [facility] this encounter [facility]* Diagnosis Congestive heart failure, unspecified HF chronicity, unspecified heart failure type (HCC)- Primary Encounter for immunization Need for other specified prophylactic vaccination against single bacterial disease Non-ischemic cardiomyopathy (HCC) Other primary cardiomyopathies Pulmonary emphysema, unspecified emphysema type (HCC) Asthma-COPD overlap syndrome (HCC) Chronic hyponatremia Hyposmolality and/or hyponatremia documented [facility] this [facility]* Diagnosis Chronic obstructive pulmonary disease, unspecified COPD type (HCC) documented in this [facility]* Diagnosis Chronic obstructive pulmonary disease, unspecified COPD type (HCC) documented in this encounter [facility]* Diagnosis Chronic low back pain, unspecified back pain laterality, unspecified whether sciatica present- Primary documented in this [facility]* Diagnosis Chronic low back pain, unspecified back pain laterality, unspecified whether sciatica present documented [facility] this [facility]* Diagnosis Dizziness- Primary Dizziness and giddiness documented in this [facility]* Diagnosis Medicare annual wellness visit, subsequent- Primary Routine general medical examination at a health care facility Gastroesophageal reflux disease, unspecified whether esophagitis present Screening for depression Encounter for screening examination for other mental health and behavioral disorders Chronic obstructive pulmonary disease, unspecified COPD type (HCC) 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 Vertigo Dizziness and giddiness Insomnia due to medical condition Insomnia due to medical condition classified elsewhere 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, <= 40%) (HCC) [facility] encounter [facility]* Diagnosis Onset Date Resolution Status Admit Date Bilateral carotid artery disease chr onic May 24, 2025 1:10pm CAD (coronary artery disease) chroni c May 24, 2025 1:10pm Chronic systolic congestive heart failure, NYHA class [address] 2024 1:10pm Dyslipidemia chronic May 24, 2025 1:10pm Essential hypertension chronic [place] 2024 1:10pm History of stent insertion o f renal artery chronic May 24 1:10pm Mitral regurgitation chronic Aug[facility] 2024 1:10pm Nonischemic cardiomyopathy chronic May 24, 2025 1:10pm [place] [facility] Work Phone: Evaluation note* Diagnosis Onset Date Resolution Status Admit Date Weakness acute November 08, 2025 1:00pm Bilateral carotid artery disease chronic November 08 1:00pm CAD (coronary artery disease) chroni c November 08, 2025 1:00pm Chronic systolic congestive heart failure, NYHA class 2 chronic Febr uary 2025 1:00pm Dyslipidemia chronic November 1:00pm Essential hypertension chronic Fe bruary 2025 1:00pm History of stent insertion o f renal artery chronic November 08 1:00pm Mitral regurgitation chronic Febr uary 2025 1:00pm Nonischemic cardiomyopathy chronic November 08, 2025 1:00pm [place] [facility] Work Phone: History and physical note Author Miranda Tripathi [facility] Note Date/Time January 13, 2025 12: 41pm [facility] Medical Records Department [address] [place] [id number] H&P Exam - Hospitalist 01/13/25 1224 MR#: [id number] Acct: [id number] Name: NANO AGUILAR Rep #:[id number] : [id number] 85 From: Miranda Tripathi MD PCP: Dr. Alberto Herr MD Status:A DM [facility]MA Location: [place] [place] [id number] HPI - General General Date of Admission: 01/13/25 Date of Service: 01/13/25 Chief Complaint: Dizziness HPI Narrative NANO MEGA, is a 85 F with a history of coronary artery disease, hypertension, GERD, COPD, CHF who presented to [facility] ED/09/27 with dizziness since 130 this morning. Patient got up to go to the bathroom and when she went back to her bed and laid down and turned over she began to feel like the room was spinning and like the bed was moving, due to this persisting patient came to the ED. In the ED blood pressure initially 180/79, heart rate 68 patient 99% on room air with a temperature of 97.6. Patient's lab workup fairly benign, EKG read demonstrated a left bundle branch block that is not new, UA unremarkable, CTA head and neck with no LVO, did have some left subclavian artery stenosis and biapical emphysema, chest x- ray with mild cardiomegaly but otherwise no acute abnormality. Patient was given Valium and Toradol for a slight occipital headache but due to persistent symptoms hospitalist contacted for admission for supportive care. Patient evaluated at bedside and reports that she did wake up around 1:30 in the morning, was able toambulate to the bathroom and back without any symptoms and then she laid down and reports after she turned to her side she had the sudden symptoms and she didfeel the room spinning in the bed moving, was also nauseous several times with no vomiting. She notes that symptoms have slowly improved and if further improved in the ED though still there, does not feel quite normal when she looksstraight up but symptoms are reproduced when she looks her head to the left, again is improving slowly. Does note that for a while patient will get some chest pressure that lasts about half an hour and has no associations with anything, not having any at the time of exam. Does report she also gets some left arm aching from her left shoulder to her left elbow and notes that arm is alittle bit tender to the touch when that happens it is worse with movement, doesnot sound that this is associated with her chest pressure at all and seems to sandy separate process, denies any falls or other acute complaints [facility] Medical History COPD exacerbation CHF exacerbation Acute hypoxic respiratory failure Osteoarthritis Osteoporosis Non-smoker Irregular heart beat Hypertension Congestive heart failure (CHF) Alcohol abuse Use of cane as ambulatory aid Mitral regurgitation CAD (coronary artery disease) Wears hearing aid Wears glasses Alcohol use Arthritis High cholesterol Excessive bleeding History of recent fall Back pain Dietary restriction Gastric reflux Former smoker Emphysema, unspecified COPD (chronic obstructive pulmonary disease) Asthma Shortness of breath on exertion Leg cramps History of pain when walking History of echocardiogram History of stress test Cardiology follow-up encounter HLD (hyperlipidemia) Valvular heart disease Chest pressure Hepatic cyst Bilateral carotid artery disease Atherosclerotic heart disease of [place] coronary artery without angina pectoris LBBB (left bundle branch block) Renovascular hypertension Essential hypertension GERD (gastroesophageal reflux disease) Nonischemic cardiomyopathy Dyslipidemia Asthma Chest pain Home Medications ?Medication ?Instructions ?Recorded ?Last Taken ?Type aspirin 81 mg tablet,delayed 81 mg PO DAILY@0800 09/0901/12/25 History release loratadine 10 mg tablet 10 mg PO DAILY allergies 04/2001/12/25 History montelukast 10 mg tablet 10 mg PO DAILY allergies 04/2001/12/25 History multivitamin with folic acid 400 1 tab PO DAILY vitami n 09/09/18 01/12/25 History mcg tablet pantoprazole 20 mg tablet,delayed 20 mg PO DAILY reflu x 08/08/19 01/12/25 History release hydrocodone-acetaminophen 5-325mg 1 tab PO TID PRN amy n 06/19/22 11/28/24 History 5mg-325mg carvedilol 12.5 mg tablet 12.5 mg PO BID blood pressur e #180 12/24/23 01/12/25 Rx tabs atorvastatin 40 mg tablet 40 mg PO DAILY cholesterol 1 01/12/25 History cholecalciferol (vitamin D3) 10 10 mcg PO DAILY vitami n 07/11/24 01/12/25 History mcg (400 unit) chewable tablet potassium chloride 20 mEq 20 meq PO DAILY #90 tabs 02/2401/12/25 Rx tablet,extended release albuterol sulfate 90 mcg/actuation 2 puff inhalation Q 4 PRN wheezing 11/16/24 11/29/24 08:00 History aerosol inhaler 2 puff fluticasone fur. 100 mcg-umeclid 1 ea inhalation DAILY 11/16/24 01/12/25 History 62.5 mcg-vilant 25 mcg inhalat.powder (Trelegy Ellipta) sacubitril 49 mg-valsartan 51 mg 1 tab PO BID #180 tab s 11/16/24 11/28/24 Rx tablet (Entresto) nitroglycerin 0.4 mg sublingual See Rx Instructions .R oute 11/28/24 11/28/24 Rx tablet .COMPLEX chest pain #25 tabs furosemide 40 mg tablet (Lasix) 40 mg PO BID #60 tabs 12/01/24 01/12/25 Rx calcium 600 mg (as 2 tab PO DAILY VITAMIN 01/1301/12/25 History carbonate)-vitamin D3 10 mcg (400 unit) tablet dapagliflozin propanediol 10 mg 10 mg PO DAILY 5 Unknown History tablet (Farxiga) isosorbide mononitrate 60 mg 60 mg PO DAILY 01/13/25 0 01/12/25 History tablet,extended release 24 hr Allergy/AdvReac Type Severity Reaction Status Date / Time adhesive tape AdvReac Itching Verified 01/13/25 07:52 latex AdvReac Rash Verified 01/13/25 07:52 nabumetone (From Relafen) AdvReac Nausea Verified 01/13/25 07:52 ramipril (From Altace) AdvReac Other Verified 01/13/25 07:52 sulfamethoxazole (From AdvReac Nausea Verified 01/13/25 07:52 Bactrim) trimethoprim (From Bactrim) AdvReac Nausea Verified 01/13/25 07:52 Surgical History History of cardiac catheterization Hx of bilateral cataract extraction Hx of colonoscopy History of breast biopsy History of tonsillectomy Social History Smoking Status: Former smoker how long ago did patient quit smokin alcohol intake: current alcohol intake frequency: a few times a week Alcohol type: wine substance use type: does not use caffeine: Yes Type: coffee Number of servings: 2 ROS ROS Narrative General: Denies fever/chills HENT: Little bit of an occipital headache, denies stuffy nose, denies sore throat EYES: Denies changes in vision Resp: Denies cough, denies shortness of breath Cardiac: Denies chest pain at this time GI: Denies abdominal pain, denies changes in bowel, however but nausea earlier without vomiting : Denies changes in urination Extremity: Denies swelling MSK: Denies weakness Neuro: Denies any numbness/tingling Heme: Denies any bleeding or bruising Skin: Denies rashes Psychiatric: No complaints voiced Vital Signs Vital Signs Vital Signs: 01/13/25 07:46 01/13/25 07:52 01/13/25 08:30 Temperature 97.6 F L Temperature Source Oral Pulse Rate 68 63 Respiratory Rate 16 12 Blood Pressure 180/79 H 161/61 H Blood Pressure Mean 112 90 Pulse Ox 99 96 Oxygen Delivery Method Room Air 01/13/25 08:45 01/13/25 09:00 01/13/25 09:00 Temperature Temperature Source Pulse Rate 78 71 74 Respiratory Rate 19 H 19 H 14 Blood Pressure 155/68 H 172/69 H 172/65 H Blood Pressure Mean 97 103 97 Pulse Ox 98 98 94 Oxygen Delivery Method Room Air Room Air 01/13/25 09:30 01/13/25 10:00 01/13/25 10:30 Temperature Temperature Source Pulse Rate 70 70 68 Respiratory Rate 12 11 L 11 L Blood Pressure 154/59 H 158/65 H 146/61 H Blood Pressure Mean 87 91 83 Pulse Ox 94 95 Oxygen Delivery Method 01/13/25 10:48 01/13/25 11:00 Temperature 97.8 F Temperature Source Pulse Rate 65 66 Respiratory Rate 11 L 14 Blood Pressure 146/68 H 150/61 H Blood Pressure Mean 94 86 Pulse Ox 93 95 Oxygen Delivery Method Weight Weight: 66 kg Body Mass Index (BMI) 24.2 Physical Exam Narrative General: Alert, oriented, no apparent distress HEENT: Atraumatic, normocephalic Eyes: Anicteric, normal conjunctiva, extraocular movements intact, pupils equal Neck: Supple Respiratory: Clear to auscultation bilaterally, normal respiratory effort Cardiovascular: Regular rate and rhythm GI: Soft, nontender, nondistended Extremities: No edema Musculoskeletal: Strength 5 - out of 5 in right upper extremity, 5 - out of 5 left upper extremity, 5 - out of 5 right lower extremity, 5 - out of 5 left lower extremity Neuro: No overt focal neurological deficits, cranial nerves II through XII intact, able to complete arapsr-yn-ymip however did so very slowly, seems and was having a tremor in her hand but did not appear to have any overt overcorrection or cerebellar signs Skin: No rashes appreciated Psych: Cooperative Results Lab / Micro Data 01/13/25 07:48 01/13/25 07:48 Labs: Laboratory Results - last 24 hr 01/13/25 07:48: WBC 6.9, RBC 3.68 L, Hgb 12.8, Hct 36.9 L, MCV 100.3 H, MCH 34.8H, MCHC 34.7, RDW Std Deviation 46.2 H, RDW Coeff of Isidra 12.5, Plt Count 176, MPV 9.4, Immature Gran % (Auto) 0.400, Neut % (Auto) 69.0, Lymph % (Auto) 20.4, Stanley % (Auto) 9.2, Eos % (Auto) 0.6, Baso % (Auto) 0.4, Absolute Neuts (auto) 4.7, Absolute Lymphs (auto) 1.40, Nucleated RBC % 0, Sodium 134, Potassium 4.0, Chloride 96 L, Carbon Dioxide 26.7, Anion Gap 11, BUN 20 H, Creatinine 0.80, Estim Creat Clear Calc 44.58 L, Est GFR (MDRD) Non-Af 71, BUN/Creatinine Ratio 24.3 H, Glucose 105 H, Calcium 10.1, Troponin T High Sens 27 H, NT pro BNP II 1025 01/13/25 08:14: Urine Color Yellow, Urine Clarity Clear, Urine pH 8.0, Ur Specific Baxter 1.010, Urine Protein 15 H, Urine Glucose (UA) Normal, Urine Ketones Negative, Urine Occult Blood Negative, Urine Nitrite Negative, Urine Bilirubin Negative, Urine Urobilinogen Normal, Ur Leukocyte Esterase Negative, Urine RBC 0 SEEN, Urine WBC 0-5 SEEN, Ur Squamous Epith Cells 0-5 SEEN, Urine Bacteria 0 SEEN, Urine Mucus 0 SEEN 01/13/25 09:45: Troponin T Hi Sens 2 Hr 26 H Imaging Radiology Impression Chest X-Ray 01/13/25 08:45 IMPRESSION: Mild cardiomegaly. Reading Location: [id number] Head/Neck CTA 01/13/25 08:45 IMPRESSION: CT head: 1. No acute intracranial finding. 2. Findings of chronic microvascular ischemic changes and age-related changes. CTA: 1. No large vessel occlusion, aneurysm or AVM. 2. 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 3. Biapical emphysema. Reading Location: [id number] Assessment & Plan Assessment/Plan (1) Dizziness: PLAN: Plan # Dizziness -Patient reports this happened after she got back in bed and turned over and it felt like the room was spinning, symptoms worse when she turns her head to the left, this sounds to be more peripheral in nature - Symptoms improving, will continue supportive care at this time - If symptoms worsen or do not continue improving may need to consider MRI - CTA with no LVO or acute intracranial abnormality -Fall precautions - PT/OT - Again suspect peripheral vertigo and do not think patient had CVA at this timegiven her reported history and her exam # Left upper arm aching - Patient did report was a little bit more painful when I was palpating without any focal tenderness he does report it hurts more when she moves it, will obtainx- ray # Elevated troponin - Patient was significantly hypertensive with systolic of 180s on arrival - Initial troponin 27-second troponin downtrended 26 - EKG read demonstrated old left bundle branch block - Not having any chest pain at time of my evaluation - Reports this intermittent chest pressure that has no exacerbating relieving factors, unclear significance but does not appear to have any ACS at this time - Will continue patient's home blood pressure medications and add as needed hydralazine # History of heart failure with reduced ejection fraction - Patient does not appear to be overloaded, appears euvolemic -Last echocardiogram EF 20% severe global hypokinesis of the left ventricle - Daily weights, I's and O's - Continue home medications - Heart healthy diet # History of coronary artery disease - Continue aspirin, statin, beta-taras #Hx COPD -Continue home inhalers -Incentive spirometer #GERD -Continue PPI #DVT ppx: Heparin subcu Miranda Tripathi MD Charges/Coding Visit Charges Inpatient E&M: 51928 Init Hosp L2 01/13/25 1241 <Electronically signed by Miranad Tripathi MD> Cosigner Signature (if applicable): CC: Dr. Miranda Tripathi MD; Dr. Alberto Herr MD~ Signed [facility] Work Phone: Hospital Discharge instructions Additional Instructions Please ice your left hand/wrist and left rib cage several times a day for the next few days. You can take Tylenol for pain. Follow-up with your PCP and return for any worsening of your symptoms.[facility] Work Phone: Hospital Discharge instructions Additional Instructions -Please call your primary care provider's office upon discharge to schedule a hospital follow up within 1 week. -For any concerning signs or symptoms please call 911 or proceed [facility] the [facility] Work Phone: Progress note Author Herlinda Ureña [facility] Note Date/Time November 08, 2025 1 :35pm [facility] [address] [place] [address] OFFICE VISIT Date of Service: 11/08/25 MR#: [id number] Acct: [id number] Name: NANO AGUILAR Rep #: [id number] : 1940 Provider: STEFANO Ureña Age/Sex: 85/F [place] [facility] [place] Status: Signed HPI HPI History of Present Illness Details: This is an 85-year-old female who presents today for cardiovascular follow-up visit. She has a history of nonischemic cardiomyopathy, hypertension, dyslipidemia, coronary artery disease and mitral valve regurgitation. From a cardiac standpoint, the patient is doing well. She denies any palpitations, chest pain, pressure or heaviness. She does acknowledge SOB-she attributes this to her COPD. She states this is nothing new or worsening. She denies Orthopnea, and PND. She does not have bleeding issues; no blood in urine,stool, or nosebleeds. She denies any decrease in energy level, myalgias, or claudication. She does not have edema, or sudden weight gain. She denies lightheadedness, dizziness, syncopal or near syncopal episodes, and headaches. She does acknowledge getting weaker. Intake Vital Signs 05/24/25 09:19 11/08/25 07:50 11/08/25 13:10 11/08/25 13:13 Height 5 ft 5 in 5 ft 5 in Weight: 145 lb BMI 24.1 BP 185/81 H 174/80 H 124/85 H Blood Pressure Location Rt brachial Rt brachial Lt brachial Position Sitting Sitting Sitting Respiration 18 Pulse 74 Pulse Source Monitor Monitor Pulse Oximetry (%) 95 Intake Visit Reasons: 6 M FU Cupola Charger Required: No Accompanied by: Self The most recent Systolic Blood Pressure reading (HTN, CKD, CAD, DM): Systolic <130mmHg (3074F) The most recent Diastolic Blood Pressure reading (HTN, CKD, CAD, DM): Diastolic 80-89 mmHg (3079F) Is patient in pain?: No Allergies adhesive tape Adverse Reaction (Verified 11/08/25 13:23) Itching latex Adverse Reaction (Verified 11/08/25 13:23) Rash nabumetone (From Relafen) Adverse Reaction (Verified 11/08/25 13:23) Nausea ramipril (From Altace) Adverse Reaction (Verified 11/08/25 13:23) Other sulfamethoxazole (From Bactrim) Adverse Reaction (Verified 11/08/25 13:23) Nausea trimethoprim (From Bactrim) Adverse Reaction (Verified 11/08/25 13:23) Nausea Medications ?Medication ?Instructions ?Recorded ?Confirmed ?Type aspirin 81 mg tablet,delayed 81 mg PO DAILY@0800 heart health 09/09/18 11/08/25 History release loratadine 10 mg tablet 10 mg PO DAILY allergies 04/2011/08/25 History montelukast 10 mg tablet 10 mg PO DAILY allergies 04/2011/08/25 History multivitamin with folic acid 400 1 tab PO DAILY vitami n 09/09/18 11/08/25 History mcg tablet pantoprazole 20 mg tablet,delayed 20 mg PO DAILY reflu x 08/08/19 11/08/25 History release cholecalciferol (vitamin D3) 10 10 mcg PO DAILY vitami n 07/11/24 11/08/25 History mcg (400 unit) chewable tablet albuterol sulfate 90 mcg/actuation 2 puff inhalation Q 4 PRN wheezing 11/16/24 11/08/25 History aerosol inhaler fluticasone fur. 100 mcg-umeclid 1 ea inhalation DAILY breathing 11/16/24 11/08/25 History 62.5 mcg-vilant 25 mcg inhalat.powder (Trelegy Ellipta) calcium 600 mg (as 2 tab PO DAILY VITAMIN 01/1311/08/25 History carbonate)-vitamin D3 10 mcg (400 unit) tablet atorvastatin 40 mg tablet 40 mg PO QHS #90 TABLETS 11/08/25 Rx carvedilol 12.5 mg tablet 12.5 mg PO BID blood pressur e #180 01/30/25 11/08/25 Rx tabs dapagliflozin propanediol 10 mg 10 mg PO DAILY diabete s #90 tabs 03/05/25 11/08/25 Rx tablet (Farxiga) sacubitril 49 mg-valsartan 51 mg 1 tab PO BID heart #1 80 tabs 03/05/25 11/08/25 Rx tablet (Entresto) nitroglycerin 0.4 mg sublingual See Rx Instructions .R oute 05/24/25 11/08/25 Rx tablet .COMPLEX chest pain #25 tabs potassium chloride 20 mEq 20 meq PO DAILY supplement # 90 tabs 07/11/25 11/08/25 Rx tablet,extended release furosemide 40 mg tablet (Lasix) 40 mg PO BID diuretic #60 tabs 08/13/25 11/08/25 Rx isosorbide mononitrate 60 mg 60 mg PO DAILY heart #90 tabs 09/07/25 11/08/25 Rx tablet,extended release 24 hr hydrocodone 5 mg-acetaminophen 300 1 tab PO QHS PRN 11/08/25 History mg tablet Medication Reconciliation completed?: Yes Ejection fraction %: [facility] History COPD exacerbation CHF exacerbation Acute hypoxic respiratory failure Osteoarthritis Osteoporosis Non-smoker Irregular heart beat Hypertension Congestive heart failure (CHF) Alcohol abuse Use of cane as ambulatory aid Mitral regurgitation CAD (coronary artery disease) Wears hearing aid Wears glasses Alcohol use Arthritis High cholesterol Excessive bleeding History of recent fall Back pain Dietary restriction Gastric reflux Former smoker Emphysema, unspecified COPD (chronic obstructive pulmonary disease) Asthma Shortness of breath on exertion Leg cramps History of pain when walking History of echocardiogram History of stress test Cardiology follow-up encounter HLD (hyperlipidemia) Valvular heart disease Chest pressure Hepatic cyst Bilateral carotid artery disease Atherosclerotic heart disease of [place] coronary artery without angina pectoris LBBB (left bundle branch block) Renovascular hypertension Essential hypertension GERD (gastroesophageal reflux disease) Nonischemic cardiomyopathy Dyslipidemia Asthma Chest pain Surgical History History of cardiac catheterization Hx of bilateral cataract extraction Hx of colonoscopy History of breast biopsy History of tonsillectomy Social History Smoking Status: Former smoker how long ago did patient quit smokin alcohol intake: current alcohol intake frequency: a few times a week Alcohol type: wine substance use type: does not use caffeine: Yes Type: coffee Number of servings: 2 ROS Const Const: Positive for weakness; Negative for fatigue, headache(s) or frequent falls Eyes Eyes: Negative for blurry vision ENT ENT: Negative for headache(s), dizziness or Nosebleed/epistaxis Cardio Chest Pain: No Palpitations: No Edema: None Muscle aches with walking: None Resp Respiratory: Positive for SOB with activity; Negative for SOB at rest or SOB orthopnea\SOB lying down GI GI: Negative nausea, vomiting, heartburn, bright, red blood in stools or black,tarry stools : Negative for hematuria Neuro Neuro: Positive for weakness; Negative for dizziness, lightheadedness, near syncope, syncope, frequent falls, headache(s) or blurry vision Endo Endo: Negative for fatigue Cardiology Exam Const Appearance: cooperative, comfortable and no acute distress Nutritional Appearance: well nourished Orientation: alert and oriented x3 Head Head: normal to inspection Ears: hearing grossly normal bilaterally Nose: external nose normal Face and Sinus: face symmetric Eyes General: appearance normal, both eyes and all related structures Eyelids: eyelids normal Conjunctivae: conjunctivae normal Pupils: PERRL and pupil size EOM: EOM intact bilaterally Neck Neck: normal visual inspection and no JVD Carotids: bruit (Right carotid bruit audible) Chest Chest inspection: normal inspection of the chest and normal respiratory effort Auscultation: Bilateral: Clear to Auscultation Cardio Palpation: normal PMI Rate: regular rate Rhythm: regular rhythm Heart sounds: S1 normal and S2 normal GI GI: normal to inspection and soft Neuro General: patient alert, patient awake and patient oriented x3 Skin Skin: no rashes or lesions noted Extremities Pulses: Normal: Right Posterior Tibial Pulse, Left Posterior Tibial Pulse, RightRadial Pulse and Left Radial Pulse Lower Extremity Edema: None: Bilateral Psych Psychological: normal affect Supplemental Info Supplemental Information Echocardiogram 11/29/2024: Interpretation Summary The estimated ejection fraction is 20 %. There is severe global hypokinesis of the left ventricle. CCTA w/Cont Coronary Arteries 2024: Abnormal echo Coronary Calcium Scoring: High-resolution Computed Tomographic imaging of the chest was performed on [2024], with particular attention paid to the coronary arteries. Intravenous contrast agent was administered per protocol and images reconstructed and displayed. The images were suboptimal due to patient movementas well as high heart rate. Patient needed to be administered oral metoprolol to get heart rates to the mid 70s. LEFT MAIN CORONARY ARTERY: Arises from the left coronary cusp and appears to be normal and bifurcates to left anterior descending artery and left circumflex artery. LEFT ANTERIOR DESCENDING CORONARY ARTERY: Significant motion artifact noted withcalcification in the proximal and mid regions. Difficult to ascertain exact stenosis. LEFT CIRCUMFLEX CORONARY ARTERY: Severely calcified in the proximal and mid segments with blooming artifact and difficult to interpret extent of stenosis RIGHT CORONARY ARTERY: Suboptimal injection and opacification with difficult to interpret stenosis. THORACIC AORTA: PULMONARY ARTERY: LEFT ATRIUM/APPENDAGE: MITRAL VALVE: AORTIC VALVE: LEFT VENTRICLE: CORONARY CALCIUM SCORE: Not performed Conclusion: Suboptimal coronary CT with inability to determine extent of coronary stenosis. However significant calcification is noted in the LAD and left circumflex arterial systems. Echocardiogram 07/12/2024: Interpretation Summary The left ventricular ejection fraction is 20 %. Normal LV size. There is severe global hypokinesis of the left ventricle. Moderately severe (3+) eccentric mitral valve insufficiency. Pulmonary artery systolic pressure is 50 mmHg. Echocardiogram 12/2023: The left ventricular ejection fraction is 35 %. Stage 2 diastolic dysfunction. The left atrium is moderately enlarged. Moderate (2+) mitral valve insufficiency. Mild tricuspid valve insufficiency. Right ventricular systolic pressure estimated to be 41 mmHg. Aortic sclerosis, no stenosis. Stress Test Report Date: 07-07-2022 Impression: 1.? Pharmacologic (Regadenoson) evaluation 2.? Peak pharmacologic ECG with continued left bundle branch block. 3.? There were no cardiac dysrhythmias pretest, during pharmacologic infusion, or recovery. 4.? Nuclear images pending Interpretation: Rest and stress SPECT Cardiolite nuclear imaging status post realignment, normalization, and attenuation correction demonstrate relative uniform tracer uptake and myocardial perfusion appearing within normal limits.? There is end systolic thickening and brightening.? The gated Cardiolite study demonstrates myocardial thickening and inward wall motion.? The reported LVEF is 52%. Impression: 1.? Rest and stress SPECT Cardiolite nuclear imaging demonstrate relative uniform tracer uptake and myocardial perfusion appearing within normal limits. 2.? The gated Cardiolite study reports an LVEF of 52%. Carotid Duplex US 12/06/2023: Interpretation Summary Mild (<50%) stenosis right extracranial internal carotid. Mild (<50%) stenosis left extracranial internal carotid. The Right vertebral is patent and antegrade. The Left vertebral flow is bidirectional. Carotid Duplex 08/29/2019: Mild (<50%) stenosis right extracranial internal carotid. Mild (<50%) stenosis left extracranial internal carotid. Flow within the right vertebral artery is antegrade. Left vertebral flow is abnormal. Labs: LDL Cholesterol, (0-130) 78 mg/dL HDL Cholesterol, (40-) 57 mg/dL Cholesterol, (200) 148 mg/dL Triglycerides, (0-199) 66 mg/dL Diagnostics: Electrocardiogram Echocardiogram Stress Test Stress Test Nuclear Medicine Chest X-Ray Abdomen Ultrasound Abdomen/Pelvis CT Carotid Duplex Coronary Angiography CT Venous Doppler Study Past Visits: Cardiology Visit Today Assessment and Plan Assessment and Plan (1) CAD (coronary artery disease): Status: Chronic Plan: Patient's most recent CT angiogram from 2024 demonstrated significant calcification noted in the LAD and left circumflex. This was reviewed with patient at her previous office visit. He cardiac catheterization was also discussed, and at that time she opted for medical management. She appears stable at this time, denies any recent symptoms or events. She will continue aspirin 81 mg daily, atorvastatin 40 mg daily, isosorbide 60 mg daily and carvedilol 12.5 mg twice daily. She will continue with aggressive risk factor and lifestyle modifications, as well as monitoring for any concerning symptoms. (2) Nonischemic cardiomyopathy: Status: Chronic Plan: Patient has a history of nonischemic cardiomyopathy. Her most recent echocardiogram from 11/29/2024 demonstrated ejection fraction of 20%. This was reviewed with patient. She appears stable at this time, denies any recent symptoms or events. She will continue Entresto 49-51 mg twice daily, Farxiga 10mg daily, furosemide 40 mg twice daily, and carvedilol 12.5 mg twice daily. A defibrillator was discussed with patient, and she declines at this time. She will continue to monitor for any concerning symptoms. (3) Chronic systolic congestive heart failure, NYHA class 2: Status: Chronic Plan: See #2. (4) Essential hypertension: Status: Chronic Plan: Patient has a history of hypertension. Her blood pressure is well-controlled atthis time-124/85. She will continue with her current medical therapy, along with monitoring her blood pressures at home. She will notify our office of any persistently elevated or low blood pressure readings. (5) Mitral regurgitation: Status: Chronic Plan: Patient has a history of mitral valve regurgitation. Her echocardiogram from 07/11/2024 demonstrated moderately severe eccentric mitral valve insufficiency. She appears stable at this time, denies any recent symptoms or events. She willcontinue Lasix 40 mg twice daily, along with monitoring for any concerning symptoms. (6) Bilateral carotid artery disease: Status: Chronic Qualifiers: Carotid artery disease type: unspecified Qualified Code(s): I73.9 - Peripheral vascular disease, unspecified Plan: Patient has a history of bilateral carotid artery stenosis. Her most recent carotid duplex ultrasound from 12/06/2023 demonstrated mild less than 50% stenosisbilaterally. This was reviewed with patient. She will continue aspirin 81 mg daily, and atorvastatin 40 mg daily. She will continue to follow with vascular for this. (7) Dyslipidemia: Status: Chronic Plan: Patient has a history of dyslipidemia. Her PCP monitors this. She will continue atorvastatin 40 mg daily, along with aggressive risk factor and lifestyle modifications. A copy of her most recent lipid panel be greatly appreciated for continuity of care. (8) History of stent insertion of renal artery: Status: Chronic Plan: Patient has a history of renal artery stenosis, and stent placement. Her blood pressure is well-controlled at this time. She will continue with her current medical therapy. We will continue to monitor. (9) Weakness: Status: Acute Plan: Patient acknowledges weakness. Would like to obtain lab work to further assess this. Depending on results, further recommendations will be made. Orders: Orders Basic Metabolic Profile (BMP) Today R53.1 - Weakness CBC W/Diff, Automated Today R53.1 - Weakness Thyroid Stim Hormone (TSH) Today R53.1 - Weakness Plan Details Additional Comments: Patient will follow-up in 6 months, or sooner if needed. Thank you for allowing me to participate in the care of your patient. Please donot hesitate to call if any issues arise. This note was generated using a voice recognition system and there may be incorrect words, spelling, or punctuation that were not noted when reviewing theoffice note prior to saving. Portions of this documentation were copied and pasted from previous office visitnotes to provide cohesive continuity of the history. The note has been reviewed,edited, and updated, as necessary. Follow Up: 6 Months (DOSIER OPERATOR/PA) Coding Level of Care Code Est. Level 4 (25186) Diagnoses CAD (coronary artery disease) I25.10 Nonischemic cardiomyopathy I42.8 Chronic systolic congestive heart failure, NYHA class 2 I50.22 Essential hypertension I10 Mitral regurgitation I34.0 Bilateral carotid artery disease, unspecified type I73.9 Carotid artery disease type: unspecified Dyslipidemia E78.5 History of stent insertion of renal artery Z98.890 Weakness R53.1 Additional Codes Intake - The most recent Systolic Blood Pressure reading (HTN, CKD, CAD, DM): Systolic <130mmHg (3074F) (3074F) Intake - The most recent Diastolic Blood Pressure reading (HTN, CKD, CAD, DM): Diastolic 80-89 mmHg (3079F) (3079F) Intake - Is patient in pain?: No (1126F) Intake - Medication Reconciliation completed?: Yes (1160F) SDOH Screening - Does the patient want assistance with any of the above?: No (G0136) (COA) Functional Assessment-Yearly - Assistance needed with ADL or use AssistiveDevices?: Yes (1170F) (COA) Fall Risk Assessment:Age 65+Yearly - Fall Risk Assessment: no falls in the past year (3288F) (3288F) Coding Level of Care Code Est. Level 4 (29779) Diagnoses CAD (coronary artery disease) I25.10 Nonischemic cardiomyopathy I42.8 Chronic systolic congestive heart failure, NYHA class 2 I50.22 Essential hypertension I10 Mitral regurgitation I34.0 Bilateral carotid artery disease, unspecified type I73.9 Carotid artery disease type: unspecified Dyslipidemia E78.5 History of stent insertion of renal artery Z98.890 Weakness R53.1 Additional Codes Intake - The most recent Systolic Blood Pressure reading (HTN, CKD, CAD, DM): Systolic <130mmHg (3074F) (3074F) Intake - The most recent Diastolic Blood Pressure reading (HTN, CKD, CAD, DM): Diastolic 80-89 mmHg (3079F) (3079F) Intake - Is patient in pain?: No (1126F) Intake - Medication Reconciliation completed?: Yes (1160F) SDOH Screening - Does the patient want assistance with any of the above?: No (G0136) (COA) Functional Assessment-Yearly - Assistance needed with ADL or use AssistiveDevices?: Yes (1170F) (COA) Fall Risk Assessment:Age 65+Yearly - Fall Risk Assessment: no falls in the past year (3288F) (3288F) Clinical Quality Measures* (COA) Functional Assessment-Yearly Functional Assessment Completed: 11/08/25 Assistance needed with ADL or use Assistive Devices?: Yes Does pt use assistive devices?: Yes Cane and Yes Walker Assistive Devices: Yes Cane (Z99.89) and Yes Walker (Z74.09) (COA) Fall Risk Assessment:Age 65+Yearly Fall Risk last assessed: 11/08/25 Have you fallen in the past year?: No Number of Falls: 0 Were you injured?: No Do you feel unsteady when standing or walking?: No Do you worry about falling?: No Fall Risk Assessment: no falls in the past year (3288F) 11/08/25 1341 <Electronically signed by Herlinda MCKEONC> Date _ Herlinda MCKEONC Cosigner Signature: Date (if applicable) CC: ~ [place] [employer] Work Phone: Reason for referral (narrative)* Diagnostic Procedure Only (Urgent) - Closed Specialty Diagnoses / Procedures Referred By Dania t Referred To Contact XR IMAGING Diagnoses Fall, initial encounter Procedures XR HIP GENERAL 3V PELV/AP/LAT LT RADEX HIP UNILATERAL WITH PELVIS 2-3 VIEWS Roderick GuptaMAY.HIGH REACH OPERATOR [address] [place] [address] [place] [address] Referral ID Status Reason Start Date Expiration Date V isits Requested Visits Authorized Closed Auto-Generate d Referral 07/28/2021 08/27/2022 1 1 * Diagnostic Procedure Only (Urgent) - Closed Specialty Diagnoses / Procedures Referred By Contac t Referred To Contact XR IMAGING Diagnoses Fall, initial encounter Procedures XR KNEE GENERAL 4V AP BOTH/PA BOTH/LAT/MERC LT KNEE AP-WGT/LAT/MERCHANT Roderick Gupta APRN.HIGH REACH OPERATOR [address] [place] [address] [place] [address] Referral ID Status Reason Start Date Expiration Date V isits Requested Visits Authorized Closed Auto-Generate d Referral 07/28/2021 08/27/2022 1 1 * Diagnostic Procedure Only (Urgent) - Closed Specialty Diagnoses / Procedures Referred By Contac t Referred To Contact XR IMAGING Diagnoses Fall, initial encounter Procedures XR LUMBAR GENERAL 3V AP/LAT/L5-S1 X-RAY L-S SPINE AP/LATERAL Roderick Gupta APRN.HIGH REACH OPERATOR [address] [place] [address] [place] [address] Referral ID Status Reason Start Date Expiration Date V isits Requested Visits Authorized Closed Auto-Generate d Referral 07/28/2021 08/27/2022 1 1 [facility]No reason for referral information availableWChillicothe [facility] Work Phone: Reason for visit Narrative* Diagnostic Procedure Only (Urgent) - Closed Specialty Diagnoses / Procedures Referred By Contac t Referred To Contact XR IMAGING Diagnoses Fall, initial encounter Procedures XR HIP GENERAL 3V PELV/AP/LAT LT RADEX HIP UNILATERAL WITH PELVIS 2-3 VIEWS Roderick Gupta APRN.HIGH REACH OPERATOR [address] [place] [address] [place] [address] Referral ID Status Reason Start Date Expiration Date V isits Requested Visits Authorized [id number] Closed Auto-Generate d Referral 07/28/2021 08/27/2022 1 1 [facility] Summary Purpose Family History Relationship Condition Age at Onset Recorded Date/T michael Unknown Family History?Cancer Unknown December 10, 2013 3:46pm Relationship Condition Age at Onset Recorded Date/T michael Unknown Family History?Cancer Unknown December 10, 2013 2:46pm Advance Directives Advance Directive Response Recorded Date/ Time Name of Medical Power of Studio Technician SPOUSE April 14, 2022 11:39am Advance Directives Yes December 10 3:48pm Living Will Yes April 14, 2022 11:39am Power of Studio Technician Yes April 14 11:39am Advance Directive Response Recorded Date/ Time Advance Directives Yes December 10 3:48pm Living Will No May 16 3 1:26pm Power of Studio Technician No May 16, 2 023 1:26pm Advance Directive Response Recorded Date/ Time Advance Directives Yes December 10 2:48pm Living Will No May 16 3 12:26pm Power of Studio Technician No May 16, 2 023 12:26pm Advance Directive Response Recorded Date/ Time Living Will Yes January 13, 2025 7:52am Do you have a Healthcare Pow er of Studio Technician? Yes January 13, 2025 7:52am Name of Medical Power of Studio Technician DEANA January 13, 2025 7:52am Living Will Yes November 29, 2 025 4:03pm Do you have a Healthcare Pow er of Studio Technician? Yes November 29, 2024 4:03pm Name of Medical Power of Studio Technician Daiana Aguilar November 29, 2024 4:03pm Advance Directives Yes December 10 3:48pm Advance Directive Response Recorded Date/ Time Living Will Yes January 13, 2025 1:16pm Do you have a Healthcare Pow er of Studio Technician? Yes January 13, 2025 1:16pm Name of Medical Power of Studio Technician DEANA January 13, 2025 1:16pm Living Will Yes November 29 4:03pm Do you have a Healthcare Pow er of Studio Technician? Yes November 29, 2024 4:03pm Name of Medical Power of Studio Technician Daiana Aguilar November 29, 2024 4:03pm Advance Directives Yes December 10 3:48pm Advance Directive Response Recorded Date/ Time Advance Directives Yes December 10 3:48pm Advance Directive Response Recorded Date/ Time Advance Directives Yes December 10 2:48pm Chief Complaint and Reason for Visit Chief Complaint 6 M FU CHEST PAIN, CAD CHEST PAIN, CAD Reason for Visit Chest pressure Bilateral carotid artery disease CAD (coronary artery disease) Essential hypertension HLD (hyperlipidemia) LBBB (left bundle branch block) Nonischemic cardiomyopathy Renovascular hypertension Valvular heart disease Chief Complaint Fall Chief Complaint 6 m fu PREV PFM PT Renovascular hypertension Reason for Visit Bilateral carotid ar betsy disease CAD (coronary artery disease) COPD (chronic obstructive pulmonary disease) Dyslipidemia Essential hypertension Mitral regurgitation Chief Complaint 6 m fu PREV PFM PT Renovascular hypertension Abnormal result of other cardiovascular function s Abnormal result of other cardiovascular function s Reason for Visit Bilateral carotid ar betsy disease CAD (coronary artery disease) COPD (chronic obstructive pulmonary disease) Dyslipidemia Essential hypertension Mitral regurgitation Chief Complaint Admit Date 7 M FU November 16, 2024 12:45pm ACUTE HYPOXIC RESPIRATORY FAILURE 2024 1:55pm ACUTE HYPOXIC RESPIRATORY FAILURE 2024 2:03pm ACUTE HYPOXIC RESPIRATORY FAILURE 2024 7:49am ACUTE HYPOXIC RESPIRATORY FAILURE 2024 3:49pm ACUTE HYPOXIC RESPIRATORY FAILURE 2024 3:56pm DIZZINESS/VERTIGO January 13, 2025 12: 24pm Reason for Visit Admit Date Bilateral carotid artery disease 2024 12:45pm CAD (coronary artery disease) November 042024 12:45pm Chronic systolic congestive heart failur e, NYHA class 2 November 16, 2024 12:45pm COPD (chronic obstructive pulmonary dise ase) November 16, 2024 12:45pm Dyslipidemia November 16, 2024 12:45pm Essential hypertension November 16 12:45pm History of stent insertion of renal rahul ry November 16, 2024 12:45pm Mitral regurgitation November 16, 2024 12:45pm Nonischemic cardiomyopathy November 12:45pm Acute hypoxic respiratory failure Februa ry 2024 1:55pm CHF exacerbation November 29, 2024 1:55pm COPD exacerbation November 29, 2024 1:55pm Dizziness January 13, 2025 12: 24pm Headache January 13, 2025 12: 24pm Inability to walk January 13, 2025 12: 24pm Chief Complaint Admit Date O/D for FU May 24, 2025 1: 10pm Reason for Visit Admit Date Bilateral carotid artery disease May 24, 2025 1:10pm CAD (coronary artery disease) May 1:10pm Chronic systolic congestive heart failur e, NYHA class 2 May 24, 2025 1:10pm Dyslipidemia May 24, 2025 1: 10pm Essential hypertension May 24, 2025 1:10pm History of stent insertion of renal rahul ry May 24, 2025 1:10pm Mitral regurgitation May 24, 2025 1 :10pm Nonischemic cardiomyopathy May 24, 2025 1:10pm Chief Complaint Admit Date 6 M FU November 08, 2025 1 :00pm INT LAB ORDERS November 08, 2025 1 :43pm Reason for Visit Admit Date Weakness November 08, 2025 1 :00pm Bilateral carotid artery disease Februar 2025 1:00pm CAD (coronary artery disease) November 082025 1:00pm Chronic systolic congestive heart failur e, NYHA class 2 November 08, 2025 1:00pm Dyslipidemia November 08, 2025 1 :00pm Essential hypertension November 08 1:00pm History of stent insertion of renal rahul ry November 08, 2025 1:00pm Mitral regurgitation November 08, 2025 1:00pm Nonischemic cardiomyopathy November 08, 2025 1:00pm Reason for Referral Specialty Diagnoses / Procedures Referred By Dania zaidi Referred To Contact CT IMAGING Diagnoses Abdominal mass, left lower quadrant Left lower quadrant abdominal pain Procedures CT ABD/PEL WO IVCON CT ABD & PELVIS W/O CONTRAST Alberto Herr MD [address] [place] [address] [place] [address] Referral ID Status Reason Start Date Expiration Date Visits Requested Visits Authorized [id number] Pending Review Auto-Generat ed Referral 3 08/26/2024 1 1 Specialty Diagnoses / Procedures Referred By Contac t Referred To Contact Diagnoses Chronic obstructive pulmonary disease, unspecified COPD type (HCC) Stephanie Hernandez PA-C [address] [place] [address] Referral ID Status Reason Start Date Expiration Date V isits Requested Visits Authorized [id number] Pending Review 07/19/2024 09/17/2024 1 1 Additional Source Comments INFORMATION SOURCE (unrecogn ized section and content) DATE CREATED AUTHOR 2026 [facility] DATE CREATED AUTHOR AUTHOR'S ORGANIZ ATION 01/16/2026 [facility] DATE CREATED AUTHOR AUTHOR'S ORGANIZ ATION 01/21/2026 [facility] DATE CREATED AUTHOR AUTHOR'S ORGANIZ ATION 03/29/2018 [facility] DATE CREATED AUTHOR AUTHOR'S ORGANIZ ATION 03/29/2018 [facility] DATE CREATED AUTHOR AUTHOR'S ORGANIZ ATION 09/13/2019 [facility] DATE CREATED AUTHOR AUTHOR'S ORGANIZ ATION 07/28/2025 [facility] Source Comments (unrecognize d section and content) In the event this informatio n is protected by the Federal Confidentiality of Alcohol and Drug Abuse Patient Records regulations: The Federal rules restrict any use of the information to criminally investigate or prosecute any alcohol or drug abuse patient.[facility] the event this information is protected by the Federal Confidentiality of Alcohol and Drug Abuse Patient Records regulations: The Federal rules restrict any use of the information to criminally investigate or prosecute any alcohol or drug abuse patient.[facility] CenterIn the event this information is protected by the Federal Confidentiality of Alcohol and Drug Abuse Patient Records regulations: The Federal rules restrict any use of the information to criminally investigate or prosecute any alcohol or drug abuse patient.[facility] CenterIn the event this information is protected by the Federal Confidentiality of Alcohol and Drug Abuse Patient Records regulations: The Federal rules restrict any use of the information to criminally investigate or prosecute any alcohol or drug abuse patient.[facility] the event this information is protected by the Federal Confidentiality of Alcohol and Drug Abuse Patient Records regulations: The Federal rules restrict any use of the information to criminally investigate or prosecute any alcohol or drug abuse patient.[facility] CenterIn the event this information is protected by the Federal Confidentiality of Alcohol and Drug Abuse Patient Records regulations: The Federal rules restrict any use of the information to criminally investigate or prosecute any alcohol or drug abuse patient.[facility] the event this information is protected by the Federal Confidentiality of Alcohol and Drug Abuse Patient Records regulations: The Federal rules restrict any use of the information to criminally investigate or prosecute any alcohol or drug abuse patient.[facility] CenterIn the event this information is protected by the Federal Confidentiality of Alcohol and Drug Abuse Patient Records regulations: The Federal rules restrict any use of the information to criminally investigate or prosecute any alcohol or drug abuse patient.[facility] CenterIn the event this information is protected by the Federal Confidentiality of Alcohol and Drug Abuse Patient Records regulations: The Federal rules restrict any use of the information to criminally investigate or prosecute any alcohol or drug abuse patient.[facility] CenterIn the event this information is protected by the Federal Confidentiality of Alcohol and Drug Abuse Patient Records regulations: The Federal rules restrict any use of the information to criminally investigate or prosecute any alcohol or drug abuse patient.[facility] CenterIn the event this information is protected by the Federal Confidentiality of Alcohol and Drug Abuse Patient Records regulations: The Federal rules restrict any use of the information to criminally investigate or prosecute any alcohol or drug abuse patient.[facility] CenterIn the event this information is protected by the Federal Confidentiality of Alcohol and Drug Abuse Patient Records regulations: The Federal rules restrict any use of the information to criminally investigate or prosecute any alcohol or drug abuse patient.[facility] CenterIn the event this information is protected by the Federal Confidentiality of Alcohol and Drug Abuse Patient Records regulations: The Federal rules restrict any use of the information to criminally investigate or prosecute any alcohol or drug abuse patient.[facility] CenterIn the event this information is protected by the Federal Confidentiality of Alcohol and Drug Abuse Patient Records regulations: The Federal rules restrict any use of the information to criminally investigate or prosecute any alcohol or drug abuse patient.[facility] CenterIn the event this information is protected by the Federal Confidentiality of Alcohol and Drug Abuse Patient Records regulations: The Federal rules restrict any use of the information to criminally investigate or prosecute any alcohol or drug abuse patient.[facility] CenterIn the event this information is protected by the Federal Confidentiality of Alcohol and Drug Abuse Patient Records regulations: The Federal rules restrict any use of the information to criminally investigate or prosecute any alcohol or drug abuse patient.[facility] CenterIn the event this information is protected by the Federal Confidentiality of Alcohol and Drug Abuse Patient Records regulations: The Federal rules restrict any use of the information to criminally investigate or prosecute any alcohol or drug abuse patient.[facility] CenterIn the event this information is protected by the Federal Confidentiality of Alcohol and Drug Abuse Patient Records regulations: The Federal rules restrict any use of the information to criminally investigate or prosecute any alcohol or drug abuse patient.[facility] CenterIn the event this information is protected by the Federal Confidentiality of Alcohol and Drug Abuse Patient Records regulations: The Federal rules restrict any use of the information to criminally investigate or prosecute any alcohol or drug abuse patient.[facility] CenterIn the event this information is protected by the Federal Confidentiality of Alcohol and Drug Abuse Patient Records regulations: The Federal rules restrict any use of the information to criminally investigate or prosecute any alcohol or drug abuse patient.[facility] CenterIn the event this information is protected by the Federal Confidentiality of Alcohol and Drug Abuse Patient Records regulations: The Federal rules restrict any use of the information to criminally investigate or prosecute any alcohol or drug abuse patient.[facility] CenterIn the event this information is protected by the Federal Confidentiality of Alcohol and Drug Abuse Patient Records regulations: The Federal rules restrict any use of the information to criminally investigate or prosecute any alcohol or drug abuse patient.[facility] CenterIn the event this information is protected by the Federal Confidentiality of Alcohol and Drug Abuse Patient Records regulations: The Federal rules restrict any use of the information to criminally investigate or prosecute any alcohol or drug abuse patient.[facility] CenterIn the event this information is protected by the Federal Confidentiality of Alcohol and Drug Abuse Patient Records regulations: The Federal rules restrict any use of the information to criminally investigate or prosecute any alcohol or drug abuse patient.[facility] CenterIn the event this information is protected by the Federal Confidentiality of Alcohol and Drug Abuse Patient Records regulations: The Federal rules restrict any use of the information to criminally investigate or prosecute any alcohol or drug abuse patient.[facility] CenterIn the event this information is protected by the Federal Confidentiality of Alcohol and Drug Abuse Patient Records regulations: The Federal rules restrict any use of the information to criminally investigate or prosecute any alcohol or drug abuse patient.[facility] CenterIn the event this information is protected by the Federal Confidentiality of Alcohol and Drug Abuse Patient Records regulations: The Federal rules restrict any use of the information to criminally investigate or prosecute any alcohol or drug abuse patient.[facility] CenterIn the event this information is protected by the Federal Confidentiality of Alcohol and Drug Abuse Patient Records regulations: The Federal rules restrict any use of the information to criminally investigate or prosecute any alcohol or drug abuse patient.[facility] CenterIn the event this information is protected by the Federal Confidentiality of Alcohol and Drug Abuse Patient Records regulations: The Federal rules restrict any use of the information to criminally investigate or prosecute any alcohol or drug abuse patient.[facility] CenterIn the event this information is protected by the Federal Confidentiality of Alcohol and Drug Abuse Patient Records regulations: The Federal rules restrict any use of the information to criminally investigate or prosecute any alcohol or drug abuse patient.[facility] CenterIn the event this information is protected by the Federal Confidentiality of Alcohol and Drug Abuse Patient Records regulations: The Federal rules restrict any use of the information to criminally investigate or prosecute any alcohol or drug abuse patient.[facility] CenterIn the event this information is protected by the Federal Confidentiality of Alcohol and Drug Abuse Patient Records regulations: The Federal rules restrict any use of the information to criminally investigate or prosecute any alcohol or drug abuse patient.[facility] CenterIn the event this information is protected by the Federal Confidentiality of Alcohol and Drug Abuse Patient Records regulations: The Federal rules restrict any use of the information to criminally investigate or prosecute any alcohol or drug abuse patient.[facility] CenterIn the event this information is protected by the Federal Confidentiality of Alcohol and Drug Abuse Patient Records regulations: The Federal rules restrict any use of the information to criminally investigate or prosecute any alcohol or drug abuse patient.[facility] CenterIn the event this information is protected by the Federal Confidentiality of Alcohol and Drug Abuse Patient Records regulations: The Federal rules restrict any use of the information to criminally investigate or prosecute any alcohol or drug abuse patient.[facility] CenterIn the event this information is protected by the Federal Confidentiality of Alcohol and Drug Abuse Patient Records regulations: The Federal rules restrict any use of the information to criminally investigate or prosecute any alcohol or drug abuse patient.[facility] CenterIn the event this information is protected by the Federal Confidentiality of Alcohol and Drug Abuse Patient Records regulations: The Federal rules restrict any use of the information to criminally investigate or prosecute any alcohol or drug abuse patient.[facility] CenterIn the event this information is protected by the Federal Confidentiality of Alcohol and Drug Abuse Patient Records regulations: The Federal rules restrict any use of the information to criminally investigate or prosecute any alcohol or drug abuse patient.[facility] CenterIn the event this information is protected by the Federal Confidentiality of Alcohol and Drug Abuse Patient Records regulations: The Federal rules restrict any use of the information to criminally investigate or prosecute any alcohol or drug abuse patient.[facility] CenterIn the event this information is protected by the Federal Confidentiality of Alcohol and Drug Abuse Patient Records regulations: The Federal rules restrict any use of the information to criminally investigate or prosecute any alcohol or drug abuse patient.[facility] CenterIn the event this information is protected by the Federal Confidentiality of Alcohol and Drug Abuse Patient Records regulations: The Federal rules restrict any use of the information to criminally investigate or prosecute any alcohol or drug abuse patient.[facility] CenterIn the event this information is protected by the Federal Confidentiality of Alcohol and Drug Abuse Patient Records regulations: The Federal rules restrict any use of the information to criminally investigate or prosecute any alcohol or drug abuse patient.[facility] CenterIn the event this information is protected by the Federal Confidentiality of Alcohol and Drug Abuse Patient Records regulations: The Federal rules restrict any use of the information to criminally investigate or prosecute any alcohol or drug abuse patient.[facility] CenterIn the event this information is protected by the Federal Confidentiality of Alcohol and Drug Abuse Patient Records regulations: The Federal rules restrict any use of the information to criminally investigate or prosecute any alcohol or drug abuse patient.[facility] CenterIn the event this information is protected by the Federal Confidentiality of Alcohol and Drug Abuse Patient Records regulations: The Federal rules restrict any use of the information to criminally investigate or prosecute any alcohol or drug abuse patient.[facility] CenterIn the event this information is protected by the Federal Confidentiality of Alcohol and Drug Abuse Patient Records regulations: The Federal rules restrict any use of the information to criminally investigate or prosecute any alcohol or drug abuse patient.[facility] CenterIn the event this information is protected by the Federal Confidentiality of Alcohol and Drug Abuse Patient Records regulations: The Federal rules restrict any use of the information to criminally investigate or prosecute any alcohol or drug abuse patient.[facility] CenterIn the event this information is protected by the Federal Confidentiality of Alcohol and Drug Abuse Patient Records regulations: The Federal rules restrict any use of the information to criminally investigate or prosecute any alcohol or drug abuse patient.[facility] CenterIn the event this information is protected by the Federal Confidentiality of Alcohol and Drug Abuse Patient Records regulations: The Federal rules restrict any use of the information to criminally investigate or prosecute any alcohol or drug abuse patient.[facility] CenterIn the event this information is protected by the Federal Confidentiality of Alcohol and Drug Abuse Patient Records regulations: The Federal rules restrict any use of the information to criminally investigate or prosecute any alcohol or drug abuse patient.[facility] CenterIn the event this information is protected by the Federal Confidentiality of Alcohol and Drug Abuse Patient Records regulations: The Federal rules restrict any use of the information to criminally investigate or prosecute any alcohol or drug abuse patient.[facility] CenterIn the event this information is protected by the Federal Confidentiality of Alcohol and Drug Abuse Patient Records regulations: The Federal rules restrict any use of the information to criminally investigate or prosecute any alcohol or drug abuse patient.[facility] CenterIn the event this information is protected by the Federal Confidentiality of Alcohol and Drug Abuse Patient Records regulations: The Federal rules restrict any use of the information to criminally investigate or prosecute any alcohol or drug abuse patient.[facility] Reason for Visit (unrecogniz ed section and content) Reason Comments Medicare Wellness Exam Reason Comments Results, Lab Reason Comments Spirometry Specialty Diagnoses / Procedures Referred By Contac t Referred To Contact [facility] Diagnoses Asthma-COPD overlap syndrome (HCC) Procedures SPIROMETRY BASELINE ONLY SPIROMETRY WO BRONCHODILATOR Stephanie Hernandez, CHAITANYA [address] [address] [facility] [address] [place] [id number] Referral ID Status Reason Start Date Expiration Date V isits Requested Visits Authorized [id number] Closed Auto-Generate d Referral 09/05/2021 10/05/2022 1 [...] CT ABD & PELVIS W/O CONTRAST Alberto Herr MD [address] [place] [address] [place] [address] Referral ID Status Reason Start Date Expiration Date V isits Requested Visits Authorized [id number] Closed Auto-Generate d Referral 07/29/2023 10/03/2023 1 1 Specialty Diagnoses / Procedures Referred By Contac t Referred To Contact CT IMAGING Diagnoses Abdominal mass, left lower quadrant Left lower quadrant abdominal pain Procedures CT ABD/PEL WO IVCON CT ABD & PELVIS W/O CONTRAST Alberto Herr MD [address] [place] [address] Ct Imaging [facility] Reason Comments Imm/Inj Reason Comments Insurance Authorization S[employer] Reason Onset Date Comments Refill Request 02/16/2024 Reason Comments Orders Reason Comments Medication Problem Reason Comments [facility] PT POC Reason Comments Established Patient Asthma/COPD overlap syndrome Reason Comments Hospital F/U Reason Comments OT plan of care Reason Onset Date Comments Refill Request 07/24/2024 Reason Comments patiet update-appt 07/19 Reason Comments Med Change Request Reason Comments home health calling Reason Onset Date Comments Transition Of Care 12/04/2024 Reason Comments [facility] SN POC Reason Comments Patient Question Medication Problem Reason Comments [facility] PT POC Reason Onset Date Comments Transition Of Care 12/13/2024 Follow up day 12 Reason Onset Date Comments Refill Request 12/18/2024 Reason Onset Date Comments Transition Of Care 12/27/2024 Follow up day 26 Reason Onset Date Comments Refill Request 12/27/2024 Reason Comments Medication Request Reason Comments Medicare Wellness Exam [facility] follow up, c/ o vertigo today, last seen a few months ago , discuss DNR CC Care Teams (unrecognized sec tion and content) Assistant Professor Of Drama Relationship Specialty Start Date End Date Alberto Herr MD [address] [place], [place] [id number] PCP - General 04/10/03 [place], [place] [address] [place] [address] Physician Cardiology 02/02/19 Assistant Professor Of Drama Relationship Specialty Start Date End Date Alberto Herr MD [address] [place] [address] PCP - General 04/10/03 [place], [place] [address] [place] [address] Physician Cardiology 02/02/19 Assistant Professor Of Drama Relationship Specialty Start Date End Date Alberto Herr MD [address] [place] [address] PCP - General 04/10/03 Tsering, Oskar S [address] [place] [address] Physician Cardiology 02/02/19 Assistant Professor Of Drama Relationship Specialty Start Date End Date Alberto Herr MD [address] [place] [address] PCP - General 04/10/03 [place], [place] [address] [place] [address] Physician Cardiology 02/02/19 Assistant Professor Of Drama Relationship Specialty Start Date End Date Alberto Herr MD [address] [place] [address] PCP - General 04/10/03 Tsering, Oskar S [address] [place] [address] Physician Cardiology 02/02/19 Assistant Professor Of Drama Relationship Specialty Start Date End Date Alberto Herr MD [address] [place] [address] PCP - General 04/10/03 [place], [place] [address] [place] [address] Physician Cardiology 02/02/19 Assistant Professor Of Drama Relationship Specialty Start Date End Date Alberto Herr MD [address] [place] [address] PCP - General 04/10/03 Tsering, Oskar S [address] [place] [address] Physician Cardiology 02/02/19 Assistant Professor Of Drama Relationship Specialty Start Date End Date Alberto Herr MD [address] [place] [address] PCP - General 04/10/03 [place], [place] [address] [place] [address] Physician Cardiology 02/02/19 Assistant Professor Of Drama Relationship Specialty Start Date End Date Alberto Herr MD [address] [place] [address] PCP - General 04/10/03 Tsering, Oskar S [address] [place] [address] Physician Cardiology 02/02/19 Assistant Professor Of Drama Relationship Specialty Start Date End Date Alberto Herr MD [address] [place] [address] PCP - General 04/10/03 [place], [place] [address] [place] [address] Physician Cardiology 02/02/19 Assistant Professor Of Drama Relationship Specialty Start Date End Date Alberto Herr MD [address] [place] [address] PCP - General 04/10/03 TseringBrayden draperril S [address] [place] [address] Physician Cardiology 02/02/19 Assistant Professor Of Drama Relationship Specialty Start Date End Date Alberto Herr MD [address] [place] [address] PCP - General 04/10/03 [place], [place] [address] [place] [address] Physician Cardiology 02/02/19 Team Status: Active Member Role Status Dates Dr. Alberto Herr MD Family Provider Active Dr. Alberto Herr MD Primary Care Provider Active Team Status: Inactive Member Role Status Dates Dr. Alberto Herr MD Primary Care Provider Active Dr. Brandon Smith MD Emergency Provider Active Assistant Professor Of Drama Relationship Specialty Start Date End Date Alberto Herr MD [address] [place] [address] PCP - General 04/10/03 Oskar Cagle MD [address] [place] [address] [place] [address], [place] [address] Physician Cardiology 02/02/19 Assistant Professor Of Drama Relationship Specialty Start Date End Date Alberto Herr MD [address] [place] [address] PCP - General 04/10/03 Oskar Cagle MD [address] [place] [address] Physician Cardiology 02/02/19 Assistant Professor Of Drama Relationship Specialty Start Date End Date Alberto Herr MD [address] [place] [address] PCP - General 04/10/03 Oskar Cagle MD [address] [address] Physician Cardiology 02/02/19 Assistant Professor Of Drama Relationship Specialty Start Date End Date Alberto Herr MD [address] [place] [address] PCP - General 04/10/03 Oskar Cagle MD [address] [address] Physician Cardiology 02/02/19 Assistant Professor Of Drama Relationship Specialty Start Date End Date Alberto Herr MD [address] [place] [address] PCP - General 04/10/03 Oskar Cagle MD [address] [address] Physician Cardiology 02/02/19 Assistant Professor Of Drama Relationship Specialty Start Date End Date Alberto Herr MD [address] [place] [address] PCP - General 04/10/03 Oskar Cagle MD [address] [address] Physician Cardiology 02/02/19 Team Status: Inactive Member Role Status Dates Dr. Alberto Herr MD Primary Care Provider, Refer ring Provider Active Dr. Edy Drew MD Attending Provider Active Team Status: Active Member Role Status Dates Dr. Alberto Herr MD Primary Care Provider Active Dr. Jaime Corea MD Attending Provider Active Team Status: Active Member Role Status Dates Dr. Alberto Herr MD Primary Care Provider Active Dr. Edy Drew MD Attending Provider Active Team Status: Inactive Member Role Status Dates Dr. Alberto Herr MD Primary Care Provider Active Dr. Edy Drew MD Attending Provider, Referring Pr ovider Active Team Status: Active Member Role Status Dates Dr. Alberto Herr MD Primary Care Provider Active Dr. Jaime Corea MD Attending Provider Active Dr. Edy Drew MD Referring Provider Active Team Status: Active Member Role Status Dates Dr. Alberto Herr MD Primary Care Provider Active HUE Alcantar Referring Provider, Other Provider Active Dr. Oskar Cagle MD Attending Provider Active Team Status: Inactive Member Role Status Dates Dr. Alberto Herr MD Primary Care Provider Active Kellee SWANN PA Attending Provider, Referr ing Provider Active Assistant Professor Of Drama Relationship Specialty Start Date End Date Alberto Herr MD [address] [place] [address] PCP - General 04/10/03 Oskar Cagle MD [address] [address] Physician Cardiology 02/02/19 Assistant Professor Of Drama Relationship Specialty Start Date End Date Alberto Herr MD [address] [place], [place] [address] PCP - General 04/10/03 Oskar Cagle MD [address] [place] [phone] Physician Cardiology 02/02/19 Assistant Professor Of Drama Relationship Specialty Start Date End Date Alberto Herr MD [address] [place] [address] PCP - General 04/10/03 Oskar Cagle MD [address] [address] Physician Cardiology 02/02/19 Assistant Professor Of Drama Relationship Specialty Start Date End Date Alberto Herr MD [address] [place] [address] PCP - General 04/10/03 Oskar Cagle MD [address] [address] Physician Cardiology 02/02/19 Assistant Professor Of Drama Relationship Specialty Start Date End Date Alberto Herr MD [address] [place] [address] PCP - General 04/10/03 Oskar Cagle MD [address] [address] Physician Cardiology 02/02/19 Assistant Professor Of Drama Relationship Specialty Start Date End Date Alberto Herr MD [address] [place] [address] PCP - General 04/10/03 Oskar Cagle MD [address] [address] Physician Cardiology 02/02/19 Assistant Professor Of Drama Relationship Specialty Start Date End Date Alberto Herr MD [address] [place] [address] PCP - General 04/10/03 Oskar Cagle MD [address] [address] Physician Cardiology 02/02/19 Assistant Professor Of Drama Relationship Specialty Start Date End Date Alberto Herr MD [address] [place] [address] PCP - General 04/10/03 Oskar Cagle MD [address] [address] Physician Cardiology 02/02/19 Tata Alford, RN [address] [place] [address] Primary Care Chronometer Tester 07/19/24 Assistant Professor Of Drama Relationship Specialty Start Date End Date Alberto Herr MD [address] [place] [address] PCP - General 04/10/03 Oskar Cagle MD [address] [address] Physician Cardiology 02/02/19 Tata Alford, RN [address] [place] [address] Primary Care Chronometer Tester 07/19/24 Assistant Professor Of Drama Relationship Specialty Start Date End Date Alberto Herr MD [address] [place] [address] PCP - General 04/10/03 Oskar Cagle MD [address] [place] [address] Physician Cardiology 02/02/19 Tata Alford, RN [address] [place] [address] Primary Care Chronometer Tester 07/19/24 07/20/24 Assistant Professor Of Drama Relationship Specialty Start Date End Date Alberto Herr MD [address] [place] [address] PCP - General 04/10/03 Oskar Cagle MD [address] [place] [address] Physician Cardiology 02/02/19 Tata Alford, GEORGE [address] [place] [address] Primary Care Chronometer Tester 07/19/24 07/20/24 Assistant Professor Of Drama Relationship Specialty Start Date End Date Alberto Herr MD [address] [place] [address] PCP - General 04/10/03 Oskar Cagle MD [address] [place] [address] Physician Cardiology 02/02/19 Brooke Cordoba, ELIGIBILITY CONSULTANT.HIGH REACH OPERATOR [address] [place] [address] Grad Intern Internal Medicine 09/11/24 Assistant Professor Of Drama Relationship Specialty Start Date End Date Alberto Herr MD [address] [place] [address] PCP - General 04/10/03 Oskar Cagle MD [address] [address] Physician Cardiology 02/02/19 Brooke Cordoba, ELIGIBILITY CONSULTANT.HIGH REACH OPERATOR [address] [place] [address] Grad Intern Internal Medicine 09/11/24 Assistant Professor Of Drama Relationship Specialty Start Date End Date Alberto Herr MD [address] [place] [address] PCP - General 04/10/03 Oskar Cagle MD [address] [address] Physician Cardiology 02/02/19 Brooke Cordoba, ELIGIBILITY CONSULTANT.HIGH REACH OPERATOR [address] [place] [address] Grad Intern Internal Medicine 09/11/24 Alessandra Osman, RN [address] [place] [address] Primary Care Chronometer Tester 12/06/24 Assistant Professor Of Drama Relationship Specialty Start Date End Date Alberto Herr MD [address] [place] [address] PCP - General 04/10/03 Oskar Cagle MD [address] [address] Physician Cardiology 02/02/19 Brooke Cordoba, ELIGIBILITY CONSULTANT.HIGH REACH OPERATOR [address] [place] [address] Grad Intern Internal Medicine 09/11/24 Alessandra Osman RN [address] [place] [address] Primary Care Chronometer Tester 12/06/24 Assistant Professor Of Drama Relationship Specialty Start Date End Date Alberto Herr MD [address] [place] [address] PCP - General 04/10/03 Oskar Cagle MD [address] [place] [address] Physician Cardiology 02/02/19 Brooke Cordoba, ELIGIBILITY CONSULTANT.HIGH REACH OPERATOR [address] [place] [address] Grad Intern Internal Medicine 09/11/24 Alessandra Osman RN [address] [place] [address] Primary Care Chronometer Tester 12/06/24 Assistant Professor Of Drama Relationship Specialty Start Date End Date Alberto Herr MD [address] [place] [address] PCP - General 04/10/03 Oskar Cagle MD [address] [place] [address] Physician Cardiology 02/02/19 Brooke Cordoba, ELIGIBILITY CONSULTANT.HIGH REACH OPERATOR [address] [place] [address] Grad Intern Internal Medicine 09/11/24 Alessandra Osman RN [address] [place] [address] Primary Care Chronometer Tester 12/06/24 Assistant Professor Of Drama Relationship Specialty Start Date End Date Alberto Herr MD [address] [place] [address] PCP - General 04/10/03 Oskar Cagle MD [address] [facility] [address] [place] [address] Physician Cardiology 02/02/19 Brooke Cordoba, ELIGIBILITY CONSULTANT.HIGH REACH OPERATOR [address] [place] [address] Grad Intern Internal Medicine 09/11/24 Alessandra Osman, GEORGE [address] [place], [place] [id number] Primary Care Chronometer Tester 12/06/24 Assistant Professor Of Drama Relationship Specialty Start Date End Date Alberto Herr MD [address] [place] [address] PCP - General 04/10/03 Oskar Cagle MD [address] [place] [address] Physician Cardiology 02/02/19 Brooke Cordoba, ELIGIBILITY CONSULTANT.HIGH REACH OPERATOR [address] [place] [address] Grad Intern Internal Medicine 09/11/24 Alessandra Osman, GEORGE [address] [place] [address] Primary Care Chronometer Tester 12/06/24 Team Status: Active Member Role Status Dates Dr. Alberto Herr MD Primary Care Provider Active Team Status: Inactive Member Role Status Dates Dr. Alberto Herr MD Primary Care Provider Active Start: November 16, 2024 End: November 16, 2024 Dr. Alberto Herr MD Referring Provider Active Start: November 16, 2024 End: November 16, 2024 Dr. Edy Drew MD Attending Provider Active Start: November 16, 2024 End: November 16, 2024 Team Status: Inactive Member Role Status Dates Dr. Alberto Herr MD Primary Care Provider Active Start: November 29, 2024 End: December 01, 2024 Dr. Jessee Zapata DO Emergency Provider Active Start: November 29, 2024 End: December 01, 2024 Dr. Jaime Vela DO Admit Provider Active Star t: November 29, 2024 End: December 01, 2024 Dr. Jaime Vela DO Other Provider Active Star t: November 29, 2024 End: December 01, 2024 Dr. Donal Huang DO Attending Provider Active Start: November 29, 2024 End: December 01, 2024 Team Status: Active Member Role Status Dates Dr. Alberto Herr MD Primary Care Provider Active Start: November 29, 2024 Dr. Jessee Zapata DO Emergency Provider Active Start: November 29, 2024 Dr. Jaime Vela DO Admit Provider Active Star t: November 29, 2024 Dr. Jaime Vela DO Attending Provider Active Start: November 29, 2024 Dr. Jaime Vela DO Other Provider Active Star t: November 29, 2024 Team Status: Active Member Role Status Dates Dr. Alberto Herr MD Primary Care Provider Active Start: November 29, 2024 Dr. Edward Ortiz MD Attending Provider Activ e Start: November 29, 2024 Team Status: Active Member Role Status Dates Dr. Alberto Herr MD Primary Care Provider Active Start: November 30, 2024 Dr. Jessee Zapata DO Emergency Provider Active Start: November 30, 2024 Dr. Jaime Vela DO Admit Provider Active Star t: November 30, 2024 Dr. Jaime Vela DO Other Provider Active Star t: November 30, 2024 Dr. Donal Huang DO Referring Provider Active Start: November 30, 2024 Dr. Donal Huang , DO Other Provider Active S tart: November 30, 2024 Dr. Conor Camargo , DO Attending Provider Active S tart: November 30, 2024 Team Status: Active Member Role Status Dates Dr. Alberto Herr MD Primary Care Provider Active Start: November 30, 2024 Dr. Jessee Zapata , DO Emergency Provider Active Start: November 30, 2024 Dr. Jaime Vela , DO Admit Provider Active Star t: November 30, 2024 Dr. Jaime Vela , DO Other Provider Active Star t: November 30, 2024 Dr. Donal Huang , DO Attending Provider Active Start: November 30, 2024 Dr. Donal Huang , DO Other Provider Active S tart: November 30, 2024 Team Status: Active Member Role Status Dates Dr. Alberto Herr MD Primary Care Provider Active Start: December 01, 2024 Dr. Jessee Zapata , DO Emergency Provider Active Start: December 01, 2024 Dr. Jaime Vela , DO Admit Provider Active Star t: December 01, 2024 Dr. Jaime Vela , DO Other Provider Active Star t: December 01, 2024 Dr. Donal Huang , DO Attending Provider Active Start: December 01, 2024 Dr. Donal Huang , DO Other Provider Active S tart: December 01, 2024 Team Status: Active Member Role Status Dates Dr. Alberto Herr MD Primary Care Provider Active Start: January 13, 2025 Dr. Garret Ayala , DO Emergency Provider Active Start: January 13, 2025 Dr. Miranda Tripathi MD Admit Provider Active Star t: January 13, 2025 Dr. Miranda Tripathi MD Attending Provider Active Start: January 13, 2025 Dr. Miranda Tripathi MD Other Provider Active Star t: January 13, 2025 Team Status: Inactive Member Role Status Dates Dr. Alberto Herr MD Primary Care Provider Active Start: January 13, 2025 End: January 14, 2025 Dr. Garret Ayala , DO Emergency Provider Active Start: January 13, 2025 End: January 14, 2025 Dr. Miranda Tripathi MD Admit Provider Active Star t: January 13, 2025 End: January 14, 2025 Dr. Miranda Tripathi MD Attending Provider Active Start: January 13, 2025 End: January 14, 2025 Dr. Miranda Tripathi MD Other Provider Active Star t: January 13, 2025 Assistant Professor Of Drama Relationship Specialty Start Date End Date Alberto Herr MD [address] [place] [address] PCP - General 04/10/03 Oskar Cagle MD [address] [id number] Physician Cardiology 02/02/19 Brooke Cordoba, ELIGIBILITY CONSULTANT.HIGH REACH OPERATOR [address] [place], [place] [id number] Grad Intern Internal Medicine 09/11/24 Team Status: Active Member Role/Relationship Status Dates Dr. Alberto Herr MD Primary Care Provider Active Team Status: Inactive Member Role/Relationship Status Dates Dr. Alberto Herr MD Primary Care Provider Active Start: May 24, 2025 End: May 24, 2025 Dr. Alberto Herr MD Referring Provider Active Start: May 24, 2025 End: May 24, 2025 Herlinda Ureña DOSIER OPERATOR, DOSIER OPERATOR-C Attending Provider Active Start: May 24, 2025 End: May 24, 2025 Team Status: Active Member Role/Relationship Status Dates Dr. Alberto Herr MD Primary care physician Activ e Team Status: Inactive Member Role/Relationship Status Dates Dr. Alberto Herr MD Primary care physician Activ e Start: November 08, 2025 End: November 08, 2025 Dr. Alberto Herr MD Referring Provider Active Start: November 08, 2025 End: November 08, 2025 Herlinda Ureña DOSIER OPERATOR, DOSIER OPERATOR-C Attending physician Active Start: November 08, 2025 End: November 08, 2025 Team Status: Active Member Role/Relationship Status Dates Dr. Alberto Herr MD Primary care physician Activ e Start: November 08, 2025 Herlinda Ureña DOSIER OPERATOR, DOSIER OPERATOR-C Attending physician Active Start: November 08, 2025 Herlinda Ureña DOSIER OPERATOR, DOSIER OPERATOR-C Referring Provider Active Start: November 08, 2025 Team Status: Inactive Member Role/Relationship Status Dates Dr. Alberto Herr MD Primary care physician Activ e Start: November 08, 2025 End: November 08, 2025 Herlinda Ureña DOSIER OPERATOR, DOSIER OPERATOR-C Attending physician Active Start: November 08, 2025 End: November 08, 2025 Herlinda Ureña NP, DOSIER OPERATOR-C Referring Provider Active Start: November 08, 2025 End: November 08, 2025 Goals (unrecognized section and content) Goals may be documented in a n alternate sectionGoals may be documented in an alternate sectionGoals may be documented in an alternate sectionGoals may be documented in an alternate sectionGoals may be documented in an alternate sectionGoals may be documented in an alternate section Active Administered Medications - up to 3 most recent administrations Administered Medications (un recognized section and content) Medication Order MAR Action Action Date Dose Rate Site denosumab 60 mg injection (PROLIA) 60 mg, SUBCUTANEOUS, EVERY 6 MONTHS, 2 doses, First dose on 10/20/23 at 2330, Last dose on 04/17/24 at 2330, Allow To Come To Room Temperature Before Administration. REFRIGERATE Given 11/17/2023 1:19 PM EST 60 mg Arm, Left FOR RECORDS PERTAINING TO PATIENTS WHO ARE [...] BE BASED ON THE PRIMARY CLINICAL RECORDS. [employer] provides no warranty or guarantee of the accuracy or completeness of information in this document.
== END 2024-12-01 17:44 | disposition home health service (06) | DRG 291 ==
LOC: ED 13:31 → ICU 13:54 → MS2 12-01 11:24 → ICU 01-22 07:31
PROVIDERS: Emergency Provider Emergency Medicine; PCP Internal Medicine; Visit Provider Internal Medicine
DX: I11.0 Hypertensive heart disease with heart failure (principal); J96.01 Acute respiratory failure with hypoxia; I50.23 Acute on chronic systolic (congestive) heart failure; J44.1 Chronic obstructive pulmonary disease with (acute) exacerbation; I42.8 Other cardiomyopathies; I25.10 Atherosclerotic heart disease of native coronary artery without angina pectoris; K21.9 Gastro-esophageal reflux disease without esophagitis; E78.00 Pure hypercholesterolemia, unspecified; E87.6 Hypokalemia; Z79.51 Long term (current) use of inhaled steroids; Z79.82 Long term (current) use of aspirin; Z79.899 Other long term (current) drug therapy; Z87.891 Personal history of nicotine dependence
CPT/HCPCS: 36415; 71046; 80048; 82962; 83880; 84484; 85025; 87631; 93005; 93308; 94002; 94640; 94762; 97162; 97166; 97802; 99252; 99285; A4216; G0463; J1938

== ENCOUNTER 2025-01-13 07:45 | Observation (INO) | payer MEDICARE, SELFPAY ==
[2025-01-13] VITALS (18 sets, daily range): BP systolic 96–180; BP diastolic 52–79; PULSE 63–78; RESP 11–19; TEMP 36.4–36.7; O2SAT 93–99; BMI 24.2; BMI 22.0
--- NOTE | 2025-01-13 08:04 | EKG12_ITS ---
Test Reason : CP Blood Pressure : */* mmHG Vent. Rate : 70 BPM Atrial Rate : 70 BPM P-R Int : 214 ms QRS Dur : 188 ms QT Int : 452 ms P-R-T Axes : 75 -37 90 degrees QTcB Int : 488 ms Sinus rhythm with 1st degree A-V block Possible Left atrial enlargement Left axis deviation Left bundle branch block Abnormal ECG When compared with ECG of 29-Nov-2024 10:58, Nonspecific T wave abnormality now evident in Inferior leads Confirmed by Garcia Bautista ([id number]), order editor CHARLIE TAPIA ([id number]) on 01/17/2025 10:09:44 AM Referred By: UCHE Confirmed By: Garcia Bautista
--- NOTE | 2025-01-13 08:07 | EX.ED.DYSGE1 ---
HPI History of Present Illness Chief Complaint: Dizziness Informant: patient and family (Son) Narrative Narrative: 85-year-old female presenting to the emergency room with a chief complaint of dizziness. Patient states that around 0130 hrs. she got up to use the bathroom and could not get out of bed because she was very dizzy. She states that the room felt like it was spinning. She also uses the words lightheadedness. She states that she laid there all night and texted her son a couple times that he did not get the text until he awoke this morning. EMS was called. She stated that she had some chest discomfort prehospital EKG shows a left bundle branch block which is old. Patient states that at some point after her symptoms began she developed an occipital headache. She notes some mild nausea but no vomiting. She denies any urinary symptoms. She has a history of CHF has been on increased Lasix dosing over the past month since she was hospitalized. She is not anticoagulated. [facility] Medical History COPD exacerbation CHF exacerbation Acute hypoxic respiratory failure Osteoarthritis Osteoporosis Non-smoker Irregular heart beat Hypertension Congestive heart failure (CHF) Alcohol abuse Use of cane as ambulatory aid Mitral regurgitation CAD (coronary artery disease) Wears hearing aid Wears glasses Alcohol use Arthritis High cholesterol Excessive bleeding History of recent fall Back pain Dietary restriction Gastric reflux Former smoker Emphysema, unspecified COPD (chronic obstructive pulmonary disease) Asthma Shortness of breath on exertion Leg cramps History of pain when walking History of echocardiogram History of stress test Cardiology follow-up encounter HLD (hyperlipidemia) Valvular heart disease Chest pressure Hepatic cyst Bilateral carotid artery disease Atherosclerotic heart disease of [place] coronary artery without angina pectoris LBBB (left bundle branch block) Renovascular hypertension Essential hypertension GERD (gastroesophageal reflux disease) Nonischemic cardiomyopathy Dyslipidemia Asthma Chest pain Home Medications ?Medication ?Instructions ?Recorded ?Last Taken ?Type aspirin 81 mg tablet,delayed 81 mg PO DAILY@0800 09/09/18 01/12/25 History release loratadine 10 mg tablet 10 mg PO DAILY allergies 09/09/18 01/12/25 History montelukast 10 mg tablet 10 mg PO DAILY allergies 09/09/18 01/12/25 History multivitamin with folic acid 400 1 tab PO DAILY vitamin 09/09/18 01/12/25 History mcg tablet pantoprazole 20 mg tablet,delayed 20 mg PO DAILY reflux 08/08/19 01/12/25 History release hydrocodone-acetaminophen 5-325mg 1 tab PO TID PRN pain 06/19/22 11/28/24 History 5mg-325mg carvedilol 12.5 mg tablet 12.5 mg PO BID blood pressure #180 12/24/23 01/12/25 Rx tabs atorvastatin 40 mg tablet 40 mg PO DAILY cholesterol 07/11/24 01/12/25 History cholecalciferol (vitamin D3) 10 10 mcg PO DAILY vitamin 07/11/24 01/12/25 History mcg (400 unit) chewable tablet potassium chloride 20 mEq 20 meq PO DAILY #90 tabs 08/08/24 01/12/25 Rx tablet,extended release albuterol sulfate 90 mcg/actuation 2 puff inhalation Q4 PRN wheezing 11/16/24 11/29/24 08:00 History aerosol inhaler 2 puff fluticasone fur. 100 mcg-umeclid 1 ea inhalation DAILY 11/16/24 01/12/25 History 62.5 mcg-vilant 25 mcg inhalat.powder (Trelegy Ellipta) sacubitril 49 mg-valsartan 51 mg 1 tab PO BID #180 tabs 11/16/24 11/28/24 Rx tablet (Entresto) nitroglycerin 0.4 mg sublingual See Rx Instructions .Route 11/28/24 11/28/24 Rx tablet .COMPLEX chest pain #25 tabs furosemide 40 mg tablet (Lasix) 40 mg PO BID #60 tabs 12/01/24 01/12/25 Rx calcium 600 mg (as 2 tab PO DAILY VITAMIN 01/13/25 01/12/25 History carbonate)-vitamin D3 10 mcg (400 unit) tablet dapagliflozin propanediol 10 mg 10 mg PO DAILY 01/13/25 Unknown History tablet (Farxiga) isosorbide mononitrate 60 mg 60 mg PO DAILY 01/13/25 01/12/25 History tablet,extended release 24 hr Allergy/AdvReac Type Severity Reaction Status Date / Time adhesive tape AdvReac Itching Verified 01/13/25 07:52 latex AdvReac Rash Verified 01/13/25 07:52 nabumetone (From Relafen) AdvReac Nausea Verified 01/13/25 07:52 ramipril (From Altace) AdvReac Other Verified 01/13/25 07:52 sulfamethoxazole (From AdvReac Nausea Verified 01/13/25 07:52 Bactrim) trimethoprim (From Bactrim) AdvReac Nausea Verified 01/13/25 07:52 Surgical History History of cardiac catheterization Hx of bilateral cataract extraction Hx of colonoscopy History of breast biopsy History of tonsillectomy Social History Smoking Status: Former smoker how long ago did patient quit smokin alcohol intake: current alcohol intake frequency: a few times a week Alcohol type: wine substance use type: does not use caffeine: Yes Type: coffee Number of servings: 2 ROS ROS ED Constitutional Constitutional ED: Denies chills, fever(s) or weight loss Eyes Eyes: Denies change in vision or diplopia ENT ENT ED: Denies ear pain, rhinorrhea or sore throat Cardiovascular Cardiovascular: Reports chest pain; Denies orthopnea, palpitations or racing heartbeat Respiratory/Chest Respiratory/Chest: Denies cough, dyspnea or orthopnea Gastrointestinal Gastrointestinal: Reports nausea; Denies abdominal pain, diarrhea or vomiting Genitourinary Genitourinary ED: Denies dysuria, hematuria or urinary frequency Musculoskeletal Musculoskeletal: Denies arthralgias or myalgias Integumentary Denies abscess or rash Neurologic Neurologic: Reports headache(s) and other Details: Dizziness/lightheadedness ; Denies paresthesias or weakness Psychiatric Psychiatric: Denies anxiety, depression, suicidal ideation or suicidal thoughts Endocrine Endocrinology: Denies polydipsia, polyphagia or polyuria Allergic/Immunologic Allergic/Immunologic ED: Denies mouth swelling, tongue swelling or urticaria EXAM Physical Exam Const Vital Signs: 01/13/25 07:46 01/13/25 07:52 01/13/25 08:30 Temperature 97.6 F L Temperature Source Oral Pulse Rate 68 63 Respiratory Rate 16 12 Blood Pressure 180/79 H 161/61 H Blood Pressure Mean 112 90 Pulse Ox 99 96 Oxygen Delivery Method Room Air 01/13/25 08:45 01/13/25 09:00 01/13/25 09:00 Temperature Temperature Source Pulse Rate 78 71 74 Respiratory Rate 19 H 19 H 14 Blood Pressure 155/68 H 172/69 H 172/65 H Blood Pressure Mean 97 103 97 Pulse Ox 98 98 94 Oxygen Delivery Method Room Air Room Air 01/13/25 09:30 01/13/25 10:00 01/13/25 10:30 Temperature Temperature Source Pulse Rate 70 70 68 Respiratory Rate 12 11 L 11 L Blood Pressure 154/59 H 158/65 H 146/61 H Blood Pressure Mean 87 91 83 Pulse Ox 94 95 Oxygen Delivery Method 01/13/25 10:48 01/13/25 11:00 Temperature 97.8 F Temperature Source Pulse Rate 65 66 Respiratory Rate 11 L 14 Blood Pressure 146/68 H 150/61 H Blood Pressure Mean 94 86 Pulse Ox 93 95 Oxygen Delivery Method Positive well nourished and well developed General Appearance ED: well developed HEENT Reports normocephalic, head/scalp atraumatic and moist mucous membranes HEENT Narrative: There is no nystagmus Eyes PERRL and EOMs intact bilaterally Neck no lymphadenopathy, supple and no JVD Resp normal respiratory effort and clear to auscultation bilaterally Cardio regular rate, regular rhythm and no murmurs GI normal to inspection, nondistended, normoactive bowel sounds and non-tender Palpation: soft Back/Spine no CVA tenderness and normal ROM Extremity normal to inspection General Extremety ED: Negative for edema General Extremity: Negative for edema Neuro oriented x3, CN's II-XII intact bilaterally and no sensory deficits noted Neuro Narrative: Patient complains of worsening dizziness symptoms with any movement of her head either left or right or sitting up or laying down. Sensorium / Orientation: alert Sensory Exam: No sensory level loss detected Motor Exam: general weakness Psych Psych Narrative: Very flat affect Mood & Affect: anxious; Negative for tearful Skin no rashes or lesions noted and no wounds MDM MDM MDM Narrative Medical decision making narrative: Differential diagnosis includes but not limited to dehydration electrolyte abnormalities acute kidney injury ischemic stroke peripheral vertigo vestibular migraine labyrinthitis EKG shows a sinus rhythm with first-degree AV block with left bundle branch block with a ventricular rate of 70 bpm. CTA head and neck does not demonstrate LVO or obvious infarct. Basic blood work shows a white count of 6.9 hemoglobin 12.8. BUN of 20 creatinine 0.8. Troponins 27 and 26. Urinalysis shows no obvious infection. My independent interpretation of the chest x-ray is no acute process. Clinically I think this is more of a positional vertigo possible vestibular migraine/labyrinthitis. Patient received a dose of Toradol and diazepam. She continues to note that she is unable to ambulate due to her dizziness. I will speak with the hospitalist regarding admission. History & Record Review Discussion w/independent historian: EMS personnel, Patient and Family Lab Data Attestation: I reviewed the patient's lab results. Labs: Laboratory Results - last 24 hr 01/13/25 01/13/25 01/13/25 07:48 08:14 09:45 WBC 6.9 RBC 3.68 L Hgb 12.8 Hct 36.9 L MCV 100.3 H MCH 34.8 H MCHC 34.7 RDW Std Deviation 46.2 H RDW Coeff of [place] 12.5 Plt Count 176 MPV 9.4 Immature Gran % (Auto) 0.400 Neut % (Auto) 69.0 Lymph % (Auto) 20.4 Delta % (Auto) 9.2 Eos % (Auto) 0.6 Baso % (Auto) 0.4 Absolute Neuts (auto) 4.7 Absolute Lymphs (auto) 1.40 Nucleated RBC % 0 Sodium 134 Potassium 4.0 Chloride 96 L Carbon Dioxide 26.7 Anion Gap 11 BUN 20 H Creatinine 0.80 Estim Creat Clear Calc 44.58 L Est GFR (MDRD) Non-Af 71 BUN/Creatinine Ratio 24.3 H Glucose 105 H Calcium 10.1 Troponin T High Sens 27 H Troponin T Hi Sens 2 Hr 26 H NT pro BNP II 1025 Urine Color Yellow Urine Clarity Clear Urine pH 8.0 Ur Specific Melvin 1.010 Urine Protein 15 H Urine Glucose (UA) Normal Urine Ketones Negative Urine Occult Blood Negative Urine Nitrite Negative Urine Bilirubin Negative Urine Urobilinogen Normal Ur Leukocyte Esterase Negative Urine RBC 0 SEEN Urine WBC 0-5 SEEN Ur Squamous Epith Cells 0-5 SEEN Urine Bacteria 0 SEEN Urine Mucus 0 SEEN Radiography Diagnostic Testing: Clinical Impression(s) from Imaging Studies Chest X-Ray 01/13/25 08:45 IMPRESSION: Mild cardiomegaly. Reading Location: [facility] Head/Neck CTA 01/13/25 08:45 IMPRESSION: CT head: 1. No acute intracranial finding. 2. Findings of chronic microvascular ischemic changes and age-related changes. CTA: 1. No large vessel occlusion, aneurysm or AVM. 2. 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 3. Biapical emphysema. Reading Location: [facility] EKG Initial EKG: Attestation: I personally reviewed and interpreted this EKG as follows: Comments: Sinus rhythm first-degree AV block left bundle branch block noted. Ventricular rate of 70 bpm Management Discussion w/another healthcare provider: Hospitalist Discharge Plan Triage Chief Complaint: Dizziness ED Provider: Garret Ayala Dx/Rx/DC Orders Prescriptions: No Action pantoprazole 20 mg tablet,delayed release (DR/EC) 20 mg PO DAILY hydrocodone-acetaminophen 5-325 mg tablet 1 tab PO TID PRN (Reason: pain) albuterol sulfate 90 mcg/actuation HFA aerosol inhaler 2 puff inhalation Q4 PRN (Reason: wheezing) Trelegy Ellipta 100-62.5-25 mcg blister with device 1 ea inhalation DAILY sacubitril-valsartan [Entresto] 49-51 mg tablet 1 tab PO BID Qty: 180 3RF Patient Comments: PT STATES THIS HAS CAUSED HER SOME DIZZINESS. aspirin 81 MG tablet 81 mg PO DAILY@0800 montelukast 10 MG tablet 10 mg PO DAILY loratadine 10 MG tablet 10 mg PO DAILY multivitamin with folic acid 1 TABLET tablet 1 tab PO DAILY isosorbide mononitrate 60 mg tablet extended release 24 hr 60 mg PO DAILY dapagliflozin propanediol [Farxiga] 10 mg tablet 10 mg PO DAILY Patient Comments: PT STATES THIS HAS CAUSED HER SOME DIZZINESS. calcium carbonate-vitamin D3 600 mg-10 mcg (400 unit) tablet 2 tab PO DAILY cholecalciferol (vitamin D3) 10 mcg (400 unit) tablet,chewable 10 mcg PO DAILY atorvastatin 40 mg tablet 40 mg PO DAILY furosemide [Lasix] 40 mg tablet 40 mg PO BID Qty: 60 0RF carvedilol 12.5 mg tablet 12.5 mg PO BID Qty: 180 4RF potassium chloride 20 mEq tablet extended release 20 meq PO DAILY Qty: 90 3RF nitroglycerin 0.4 mg tablet, sublingual See Rx Instructions .ROUTE .COMPLEX Qty: 25 3RF Dose Instruction: 0.4 MG SUBLINGUAL EVERY 5-15M NEEDED FOR CHEST PAIN Rx Instructions: 0.4 MG SUBLINGUAL EVERY 5-15M NEEDED FOR CHEST PAIN Primary Care Provider: Alberto Herr Referrals: Alberto Herr MD [Primary Care Provider] - Print Language: Frisian NIHSS NIHSS 1a. Level of Consciousness: Alert; keenly responsive 1b. LOC Questions: Answers BOTH questions correctly. 1c. LOC Commands: Performs both tasks correctly. 2. Best Gaze: Normal 3. Visual: No visual loss 4. Facial Palsy: Normal symmetrical movements 5a. Left Arm: No drift; arm holds 90 (or 45) degrees for full 10 seconds 5b. Right Arm: No drift; arm holds 90 (or 45) degrees for full 10 seconds 6a. Left Leg: No drift; leg holds 30-degree position for full 5 seconds 6b. Right Leg: No drift; leg holds 30-degree position for full 5 seconds 7. Limb Ataxia: Absent 8. Sensory: Normal; no sensory loss 9. Best Language: No aphasia; normal 10. Dysarthria: Normal 11. Extinction and Inattention: No abnormality Total: 0
[2025-01-13 08:11] LABS: Absolute Neutrophil Count 4.7 X10^3/uL (2.0-7.7); Basophil# 0.03 X10^3/uL; Basophil% 0.4 % (0-1); Eosinophil# 0.04 X10^3/uL; Eosinophils% 0.6 % (0-5); Hematocrit 36.9 % (37-47); Hemoglobin 12.8 g/dL (12.0-15.0); Lymphocyte % 20.4 % (19-41); Mean Corp Hgb Conc 34.7 g/dL (32-36); Mean Corpuscular Hgb 34.8 pg (27.0-32.0); Mean Corpuscular Volume 100.3 fL (81-99); Mean Platelet Vol. 9.4 fl (6.2-12.0); Monocyte# 0.63 X10^3/uL; Monocyte% 9.2 % (0-10); NRBC Flagged by Analyzer 0 % (0-5); Neutrophil # 4.72 X10^3/uL (2.7-7.7); Platelet Count 176 K/mm3 (150-450); RBC Distribution Width CV 12.5 % (11.6-14.6); RBC Distribution Width SD 46.2 fl (35.1-43.9); Red Blood Count 3.68 M/mm3 (4.2-5.4); White Blood Count 6.9 K/mm3 (4.4-11.0)
[2025-01-13 08:17] LABS: Bacteria 0 SEEN /hpf (None Seen); Mucous, Urine 0 SEEN /hpf (<or=2+); Red Blood Cells-Urine 0 SEEN /hpf (0-5)
[2025-01-13 08:30] LABS: Troponin T High Sensitivity 27 ng/L (<=14)
[2025-01-13 08:31] LABS: Anion Gap 11 (5-15); BUN 20 mg/dL (4-19); BUN/Creat Ratio 24.3 RATIO (10-20); Calcium,Total 10.1 mg/dL (7.6-11.0); Carbon Dioxide 26.7 mmol/L (21.0-32.0); Chloride 96 mmol/L (98-108); EST Glomerular Filtration Rate 71 (>60); Estimated Creatinine Clearance 44.58 ml/min (50-250); Glucose 105 mg/dL (70-99); Pro- Brain NATRIURETIC PEPTIDE 1025 pg/mL (<=1800); Sodium Level 134 mmol/L (133-145)
[2025-01-13 08:42] LABS: Color, Urine Yellow (Yellow); Glucose, Dipstick Normal (Normal); Ketone-Dipstick Negative (Negative); Leukocyte Esterase-Dipstick Negative /ul (Negative); Nitrite-Dipstick Negative (Negative); Occult Blood-Urine Negative /ul (Negative); Protein-Dipstick 15 mg/dl (Negative); Urine Bilirubin Dipstick Negative (Negative); Urine Clarity Clear (Clear); Urine Urobilinogen Normal (Normal)
--- NOTE | 2025-01-13 08:45 | CT_ITS ---
PROCEDURE: CT HEAD, CTA HEAD AND NECK W/ CONTRAST 01/13/2025 REASON FOR EXAM: DIZZINESS/POSTERIOR CIRCULATION TECHNIQUE: CTA imaging of the head and neck from the aortic arch to the skull vertex with out constrast and with intravenous contrast. Coronal and Sagittal reconstruction series were provided. 3D post processing with reformations, Maximum intensity projection (MIPs) Volume rendering and Shaded surface rendering was provided. CONTRAST: Isovue 370 VOLUME: 100 mL One or more dose reduction techniques were used (e.g., Automated exposure control, adjustment of the mA and/or kV according to patient size, use of iterative reconstruction technique). RADIATION DOSE SUMMARY: CTDlvol: 85 mGy DLP: 1400 mGycm COMPARISON: None. FINDINGS: Noncontrast CT head: The ventricles and subarachnoid spaces are normal for patient age. Minimal generalized cerebral volume loss. Moderate patchy supratentorial white matter hypodensities. The swann-white matter interfaces are otherwise maintained. No acute intracranial hemorrhage or herniation. The basal cisterns are patent. The visualized paranasal sinuses are well-aerated. Unremarkable orbits. No acute calvarial fracture or scalp hematoma. CTA neck: Three-vessel aortic arch with calcific plaque of the left subclavian artery at its origin resulting in moderate stenosis. Calcific plaque of the bilateral vertebral arteries at their origins resulting in mild narrowing. Calcific plaque of the bilateral cervical carotid arteries without focal stenosis by NASCET criteria. CTA head: Calcific plaque of the bilateral carotid siphons without focal stenosis or occlusion. The bilateral anterior, middle and posterior arteries are widely patent. No aneurysm or AVM. Major venous structures: Unremarkable. Other findings: Biapical emphysema and pleural-parenchymal scarring. Cervical spondylosis. CT/CTA Head AND Neck W/ Contrast IMPRESSION: CT head: 1. No acute intracranial finding. 2. Findings of chronic microvascular ischemic changes and age-related changes. CTA: 1. No large vessel occlusion, aneurysm or AVM. 2. Calcific plaque of the left subclavian artery resulting in moderate stenosis . 3. Biapical emphysema. Reading Location: [facility]
--- NOTE | 2025-01-13 08:45 | RAD_ITS ---
PROCEDURE: CHEST 1 VIEW (PORTABLE) 01/13/2025 REASON FOR EXAM: CHF TECHNIQUE: Frontal view of the chest. COMPARISON: Chest radiograph 11/29/2024. FINDINGS: Hardware: None. Heart: Heart size is mildly enlarged. Calcific plaque of the thoracic aorta. Lungs: No focal consolidation, pleural effusion or pneumothorax. Bones: Degenerative changes are identified within the thoracic spine. RAD/Chest 1 View (Portable) IMPRESSION: Mild cardiomegaly. Reading Location: [id number]
[2025-01-13 08:58] LABS: Squamous Epithelial Cells - UA 0-5 SEEN /hpf (5-10); White Blood Cells 0-5 SEEN /hpf (0-5)
[2025-01-13] MEDS: diazePAM 5 MG Tablet 2.5 MG PO (09:47)
[2025-01-13 10:05] LABS: Troponin T High Sens 2 HR 26 ng/L (<=14)
--- NOTE | 2025-01-13 12:24 | PCM.HP.STD ---
HPI - General General Date of Admission: 01/13/25 Date of Service: 01/13/25 Chief Complaint: Dizziness HPI Narrative JESUS AYOUB, is a 85 F with a history of coronary artery disease, hypertension, GERD, COPD, CHF who presented to [facility] ED/09/27 with dizziness since 130 this morning. Patient got up to go to the bathroom and when she went back to her bed and laid down and turned over she began to feel like the room was spinning and like the bed was moving, due to this persisting patient came to the ED. In the ED blood pressure initially 180/79, heart rate 68 patient 99% on room air with a temperature of 97.6. Patient's lab workup fairly benign, EKG read demonstrated a left bundle branch block that is not new, UA unremarkable, CTA head and neck with no LVO, did have some left subclavian artery stenosis and biapical emphysema, chest x-ray with mild cardiomegaly but otherwise no acute abnormality. Patient was given Valium and Toradol for a slight occipital headache but due to persistent symptoms hospitalist contacted for admission for supportive care. Patient evaluated at bedside and reports that she did wake up around 1:30 in the morning, was able to ambulate to the bathroom and back without any symptoms and then she laid down and reports after she turned to her side she had the sudden symptoms and she did feel the room spinning in the bed moving, was also nauseous several times with no vomiting. She notes that symptoms have slowly improved and if further improved in the ED though still there, does not feel quite normal when she looks straight up but symptoms are reproduced when she looks her head to the left, again is improving slowly. Does note that for a while patient will get some chest pressure that lasts about half an hour and has no associations with anything, not having any at the time of exam. Does report she also gets some left arm aching from her left shoulder to her left elbow and notes that arm is a little bit tender to the touch when that happens it is worse with movement, does not sound that this is associated with her chest pressure at all and seems to be a separate process, denies any falls or other acute complaints [facility] Medical History COPD exacerbation CHF exacerbation Acute hypoxic respiratory failure Osteoarthritis Osteoporosis Non-smoker Irregular heart beat Hypertension Congestive heart failure (CHF) Alcohol abuse Use of cane as ambulatory aid Mitral regurgitation CAD (coronary artery disease) Wears hearing aid Wears glasses Alcohol use Arthritis High cholesterol Excessive bleeding History of recent fall Back pain Dietary restriction Gastric reflux Former smoker Emphysema, unspecified COPD (chronic obstructive pulmonary disease) Asthma Shortness of breath on exertion Leg cramps History of pain when walking History of echocardiogram History of stress test Cardiology follow-up encounter HLD (hyperlipidemia) Valvular heart disease Chest pressure Hepatic cyst Bilateral carotid artery disease Atherosclerotic heart disease of [place] coronary artery without angina pectoris LBBB (left bundle branch block) Renovascular hypertension Essential hypertension GERD (gastroesophageal reflux disease) Nonischemic cardiomyopathy Dyslipidemia Asthma Chest pain Home Medications ?Medication ?Instructions ?Recorded ?Last Taken ?Type aspirin 81 mg tablet,delayed 81 mg PO DAILY@0800 09/09/18 01/12/25 History release loratadine 10 mg tablet 10 mg PO DAILY allergies 09/09/18 01/12/25 History montelukast 10 mg tablet 10 mg PO DAILY allergies 09/09/18 01/12/25 History multivitamin with folic acid 400 1 tab PO DAILY vitamin 09/09/18 01/12/25 History mcg tablet pantoprazole 20 mg tablet,delayed 20 mg PO DAILY reflux 08/08/19 01/12/25 History release hydrocodone-acetaminophen 5-325mg 1 tab PO TID PRN pain 06/19/22 11/28/24 History 5mg-325mg carvedilol 12.5 mg tablet 12.5 mg PO BID blood pressure #180 12/24/23 01/12/25 Rx tabs atorvastatin 40 mg tablet 40 mg PO DAILY cholesterol 07/11/24 01/12/25 History cholecalciferol (vitamin D3) 10 10 mcg PO DAILY vitamin 07/11/24 01/12/25 History mcg (400 unit) chewable tablet potassium chloride 20 mEq 20 meq PO DAILY #90 tabs 08/08/24 01/12/25 Rx tablet,extended release albuterol sulfate 90 mcg/actuation 2 puff inhalation Q4 PRN wheezing 11/16/24 11/29/24 08:00 History aerosol inhaler 2 puff fluticasone fur. 100 mcg-umeclid 1 ea inhalation DAILY 11/16/24 01/12/25 History 62.5 mcg-vilant 25 mcg inhalat.powder (Trelegy Ellipta) sacubitril 49 mg-valsartan 51 mg 1 tab PO BID #180 tabs 11/16/24 11/28/24 Rx tablet (Entresto) nitroglycerin 0.4 mg sublingual See Rx Instructions .Route 11/28/24 11/28/24 Rx tablet .COMPLEX chest pain #25 tabs furosemide 40 mg tablet (Lasix) 40 mg PO BID #60 tabs 12/01/24 01/12/25 Rx calcium 600 mg (as 2 tab PO DAILY VITAMIN 01/13/25 01/12/25 History carbonate)-vitamin D3 10 mcg (400 unit) tablet dapagliflozin propanediol 10 mg 10 mg PO DAILY 01/13/25 Unknown History tablet (Farxiga) isosorbide mononitrate 60 mg 60 mg PO DAILY 01/13/25 01/12/25 History tablet,extended release 24 hr Allergy/AdvReac Type Severity Reaction Status Date / Time adhesive tape AdvReac Itching Verified 01/13/25 07:52 latex AdvReac Rash Verified 01/13/25 07:52 nabumetone (From Relafen) AdvReac Nausea Verified 01/13/25 07:52 ramipril (From Altace) AdvReac Other Verified 01/13/25 07:52 sulfamethoxazole (From AdvReac Nausea Verified 01/13/25 07:52 Bactrim) trimethoprim (From Bactrim) AdvReac Nausea Verified 01/13/25 07:52 Surgical History History of cardiac catheterization Hx of bilateral cataract extraction Hx of colonoscopy History of breast biopsy History of tonsillectomy Social History Smoking Status: Former smoker how long ago did patient quit smokin alcohol intake: current alcohol intake frequency: a few times a week Alcohol type: wine substance use type: does not use caffeine: Yes Type: coffee Number of servings: 2 ROS ROS Narrative General: Denies fever/chills HENT: Little bit of an occipital headache, denies stuffy nose, denies sore throat EYES: Denies changes in vision Resp: Denies cough, denies shortness of breath Cardiac: Denies chest pain at this time GI: Denies abdominal pain, denies changes in bowel, however but nausea earlier without vomiting : Denies changes in urination Extremity: Denies swelling MSK: Denies weakness Neuro: Denies any numbness/tingling Heme: Denies any bleeding or bruising Skin: Denies rashes Psychiatric: No complaints voiced Vital Signs Vital Signs Vital Signs: 01/13/25 07:46 01/13/25 07:52 01/13/25 08:30 Temperature 97.6 F L Temperature Source Oral Pulse Rate 68 63 Respiratory Rate 16 12 Blood Pressure 180/79 H 161/61 H Blood Pressure Mean 112 90 Pulse Ox 99 96 Oxygen Delivery Method Room Air 01/13/25 08:45 01/13/25 09:00 01/13/25 09:00 Temperature Temperature Source Pulse Rate 78 71 74 Respiratory Rate 19 H 19 H 14 Blood Pressure 155/68 H 172/69 H 172/65 H Blood Pressure Mean 97 103 97 Pulse Ox 98 98 94 Oxygen Delivery Method Room Air Room Air 01/13/25 09:30 01/13/25 10:00 01/13/25 10:30 Temperature Temperature Source Pulse Rate 70 70 68 Respiratory Rate 12 11 L 11 L Blood Pressure 154/59 H 158/65 H 146/61 H Blood Pressure Mean 87 91 83 Pulse Ox 94 95 Oxygen Delivery Method 01/13/25 10:48 01/13/25 11:00 Temperature 97.8 F Temperature Source Pulse Rate 65 66 Respiratory Rate 11 L 14 Blood Pressure 146/68 H 150/61 H Blood Pressure Mean 94 86 Pulse Ox 93 95 Oxygen Delivery Method Weight Weight: 66 kg Body Mass Index (BMI) 24.2 Physical Exam Narrative General: Alert, oriented, no apparent distress HEENT: Atraumatic, normocephalic Eyes: Anicteric, normal conjunctiva, extraocular movements intact, pupils equal Neck: Supple Respiratory: Clear to auscultation bilaterally, normal respiratory effort Cardiovascular: Regular rate and rhythm GI: Soft, nontender, nondistended Extremities: No edema Musculoskeletal: Strength 5 - out of 5 in right upper extremity, 5 - out of 5 left upper extremity, 5 - out of 5 right lower extremity, 5 - out of 5 left lower extremity Neuro: No overt focal neurological deficits, cranial nerves II through XII intact, able to complete [id number] however did so very slowly, seems and was having a tremor in her hand but did not appear to have any overt overcorrection or cerebellar signs Skin: No rashes appreciated Psych: Cooperative Results Lab / Micro Data 01/13/25 07:48 01/13/25 07:48 Labs: Laboratory Results - last 24 hr 01/13/25 07:48: WBC 6.9, RBC 3.68 L, Hgb 12.8, Hct 36.9 L, MCV 100.3 H, MCH 34.8 H, MCHC 34.7, RDW Std Deviation 46.2 H, RDW Coeff of [place] 12.5, Plt Count 176, MPV 9.4, Immature Gran % (Auto) 0.400, Neut % (Auto) 69.0, Lymph % (Auto) 20.4, [place] % (Auto) 9.2, Eos % (Auto) 0.6, Baso % (Auto) 0.4, Absolute Neuts (auto) 4.7, Absolute Lymphs (auto) 1.40, Nucleated RBC % 0, Sodium 134, Potassium 4.0, Chloride 96 L, Carbon Dioxide 26.7, Anion Gap 11, BUN 20 H, Creatinine 0.80, Estim Creat Clear Calc 44.58 L, Est GFR (MDRD) Non-Af 71, BUN/Creatinine Ratio 24.3 H, Glucose 105 H, Calcium 10.1, Troponin T High Sens 27 H, NT pro BNP II 1025 01/13/25 08:14: Urine Color Yellow, Urine Clarity Clear, Urine pH 8.0, Ur Specific [place] 1.010, Urine Protein 15 H, Urine Glucose (UA) Normal, Urine Ketones Negative, Urine Occult Blood Negative, Urine Nitrite Negative, Urine Bilirubin Negative, Urine Urobilinogen Normal, Ur Leukocyte Esterase Negative, Urine RBC 0 SEEN, Urine WBC 0-5 SEEN, Ur Squamous Epith Cells 0-5 SEEN, Urine Bacteria 0 SEEN, Urine Mucus 0 SEEN 01/13/25 09:45: Troponin T Hi Sens 2 Hr 26 H Imaging Radiology Impression Chest X-Ray 01/13/25 08:45 IMPRESSION: Mild cardiomegaly. Reading Location: [facility] Head/Neck CTA 01/13/25 08:45 IMPRESSION: CT head: 1. No acute intracranial finding. 2. Findings of chronic microvascular ischemic changes and age-related changes. CTA: 1. No large vessel occlusion, aneurysm or AVM. 2. 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 3. Biapical emphysema. Reading Location: [id number] Assessment & Plan Assessment/Plan (1) Dizziness: PLAN: Plan # Dizziness -Patient reports this happened after she got back in bed and turned over and it felt like the room was spinning, symptoms worse when she turns her head to the left, this sounds to be more peripheral in nature - Symptoms improving, will continue supportive care at this time - If symptoms worsen or do not continue improving may need to consider MRI - CTA with no LVO or acute intracranial abnormality -Fall precautions - PT/OT - Again suspect peripheral vertigo and do not think patient had CVA at this time given her reported history and her exam # Left upper arm aching - Patient did report was a little bit more painful when I was palpating without any focal tenderness he does report it hurts more when she moves it, will obtain x-ray # Elevated troponin - Patient was significantly hypertensive with systolic of 180s on arrival - Initial troponin 27-second troponin downtrended 26 - EKG read demonstrated old left bundle branch block - Not having any chest pain at time of my evaluation - Reports this intermittent chest pressure that has no exacerbating relieving factors, unclear significance but does not appear to have any ACS at this time - Will continue patient's home blood pressure medications and add as needed hydralazine # History of heart failure with reduced ejection fraction - Patient does not appear to be overloaded, appears euvolemic -Last echocardiogram EF 20% severe global hypokinesis of the left ventricle - Daily weights, I's and O's - Continue home medications - Heart healthy diet # History of coronary artery disease - Continue aspirin, statin, beta-taras #Hx COPD -Continue home inhalers -Incentive spirometer #GERD -Continue PPI #DVT ppx: Heparin subcu Miranda Tripathi MD Charges/Coding Visit Charges Inpatient E&M: 35268 Init Hosp L2
--- NOTE | 2025-01-13 13:15 | RAD_ITS ---
PROCEDURE: HUMERUS MIN 2 VIEWS 01/13/2025 REASON FOR EXAM: PAIN FROM LEFT SHOULDER TO LEFT ELBOW TECHNIQUE: 2 view(s) of the left humerus. COMPARISON: CHEST RADIOGRAPH 01/13/2025. FINDINGS: Bones: Diffuse osseous demineralization. No acute osseous fracture. No aggressive osseous lesions. Joints: Severe arthrosis of the left glenohumeral and acromioclavicular joints. Soft tissues: Soft tissues are unremarkable. Other: IV tubing overlies the left antecubital fossa. RAD/Humerus min 2 Views IMPRESSION: DEGENERATIVE OSTEOARTHROSIS. NO ACUTE FINDINGS. Reading Location: [id number]
[2025-01-13] MEDS: Furosemide 40 MG Tablet PO (17:22)
[2025-01-13] MEDS: Carvedilol 12.5 MG Tablet PO (17:22)
[2025-01-13] MEDS: Ipratropium/Albuterol Sulfate 3 ML AMPUL.NEB INHALATION (19:32)
[2025-01-13] MEDS: Budesonide Respules 0.5 MG/2 ML AMPUL.NEB. INHALATION (19:32)
[2025-01-13] MEDS: SACUBITRIL/VALSARTAN 49-51 MG TABLET 1 EACH PO (21:03)
[2025-01-13] MEDS: Atorvastatin Calcium 40 MG Tablet PO (21:03)
[2025-01-13] MEDS: 0.9% Saline Lock 10 ML Syringe IV (21:09)
[2025-01-13] MEDS: MELATONIN 3 MG TABLET PO (21:09)
[2025-01-14 02:58] VITALS: BP 157/65; PULSE 69; RESP 14; TEMP 36.8; O2SAT 95
[2025-01-14 03:00] VITALS: PULSE 68
[2025-01-14 04:46] VITALS: BMI 23.2
[2025-01-14 06:09] LABS: Absolute Lymphocyte Count 1.53 X10^3/uL (0.83-4.51); Absolute Neutrophil Count 5.1 X10^3/uL (2.0-7.7); Basophil# 0.02 X10^3/uL; Basophil% 0.3 % (0-1); Eosinophil# 0.04 X10^3/uL; Eosinophils% 0.5 % (0-5); Hematocrit 37.6 % (37-47); Lymphocyte # 1.53 X10^3/ul (0.83-4.51); Lymphocyte % 20.8 % (19-41); Mean Corp Hgb Conc 34.6 g/dL (32-36); Mean Corpuscular Hgb 33.9 pg (27.0-32.0); Mean Corpuscular Volume 98.2 fL (81-99); Mean Platelet Vol. 9.3 fl (6.2-12.0); Monocyte# 0.69 X10^3/uL; Monocyte% 9.4 % (0-10); NRBC Flagged by Analyzer 0 % (0-5); Neutrophil # 5.05 X10^3/uL (2.7-7.7); Neutrophil % 68.6 % (47-70); Platelet Count 162 K/mm3 (150-450); RBC Distribution Width CV 12.4 % (11.6-14.6); RBC Distribution Width SD 44.8 fl (35.1-43.9); Red Blood Count 3.83 M/mm3 (4.2-5.4); White Blood Count 7.4 K/mm3 (4.4-11.0)
[2025-01-14 06:52] VITALS: PULSE 75; RESP 18
[2025-01-14] MEDS: Ipratropium/Albuterol Sulfate 3 ML AMPUL.NEB INHALATION (06:52)
[2025-01-14] MEDS: Budesonide Respules 0.5 MG/2 ML AMPUL.NEB. INHALATION (06:52)
[2025-01-14 06:59] LABS: Anion Gap 13 (5-15); BUN 15 mg/dL (4-19); BUN/Creat Ratio 22.7 RATIO (10-20); Calcium,Total 9.3 mg/dL (7.6-11.0); Carbon Dioxide 22.9 mmol/L (21.0-32.0); Chloride 101 mmol/L (98-108); Creatinine, Serum 0.68 mg/dL (0.70-1.20); EST Glomerular Filtration Rate 84 (>60); Estimated Creatinine Clearance 44.58 ml/min (50-250); Glucose 97 mg/dL (70-99); Potassium 3.6 mmol/L (3.3-5.1); Sodium Level 136 mmol/L (133-145)
[2025-01-14 08:16] VITALS: BP 159/61; PULSE 71; RESP 16; TEMP 36.7; O2SAT 96
[2025-01-14] MEDS: Enoxaparin 40 MG/0.4 ML Syringe SC (08:24)
[2025-01-14] MEDS: Isosorbide Mononitrate 60 MG Tablet PO (08:24)
[2025-01-14] MEDS: SACUBITRIL/VALSARTAN 49-51 MG TABLET 1 EACH PO (08:25)
[2025-01-14] MEDS: Carvedilol 12.5 MG Tablet PO (08:25)
[2025-01-14] MEDS: Furosemide 40 MG Tablet PO (08:25)
[2025-01-14] MEDS: Pantoprazole Sodium 20 MG Tablet PO (08:25)
[2025-01-14] MEDS: Potassium Chloride Oral Tablet 20 MEQ PO (08:25)
[2025-01-14] MEDS: Aspirin 81 MG TAB.CHEW PO (08:25)
[2025-01-14] MEDS: Loratadine 10 MG Tablet PO (08:25)
--- NOTE | 2025-01-14 12:00 | DCINST_ITS ---
Discharge Instructions Diet Discharge Diet: - (DASH diet) DC O2, CPAP, BIPAP needs Home O2 Discharge instructions: No Dressing / Incision Discharge Activity: - (Increase activity as tolerated) Follow Up Care Test Results: Test results from this visit will be discussed in further detail at your follow- up appointment, if applicable. Discharge Plan Admission Admit Date/Time: 01/13/25 12:24 Primary Reason for Your Visit: Dizzy feeling Attending Provider: Miranda Tripathi Primary Care Provider: Alberto Herr Instructions Patient Instructions: BPPV, ED Fall Prevention Additional Instructions / Restrictions: -Please call your primary care provider's office upon discharge to schedule a hospital follow up within 1 week. -For any concerning signs or symptoms please call 911 or proceed to the nearest emergency department Discharge Orders/Prescriptions Prescriptions: Continued pantoprazole 20 mg tablet,delayed release (DR/EC) 20 mg PO DAILY albuterol sulfate 90 mcg/actuation HFA aerosol inhaler 2 puff inhalation Q4 PRN (Reason: wheezing) Trelegy Ellipta 100-62.5-25 mcg blister with device 1 ea inhalation DAILY sacubitril-valsartan [Entresto] 49-51 mg tablet 1 tab PO BID Qty: 180 3RF Patient Comments: PT STATES THIS HAS CAUSED HER SOME DIZZINESS. aspirin 81 MG tablet 81 mg PO DAILY@0800 montelukast 10 MG tablet 10 mg PO DAILY loratadine 10 MG tablet 10 mg PO DAILY multivitamin with folic acid 1 TABLET tablet 1 tab PO DAILY isosorbide mononitrate 60 mg tablet extended release 24 hr 60 mg PO DAILY dapagliflozin propanediol [Farxiga] 10 mg tablet 10 mg PO DAILY Patient Comments: PT STATES THIS HAS CAUSED HER SOME DIZZINESS. calcium carbonate-vitamin D3 600 mg-10 mcg (400 unit) tablet 2 tab PO DAILY cholecalciferol (vitamin D3) 10 mcg (400 unit) tablet,chewable 10 mcg PO DAILY atorvastatin 40 mg tablet 40 mg PO DAILY furosemide [Lasix] 40 mg tablet 40 mg PO BID Qty: 60 0RF carvedilol 12.5 mg tablet 12.5 mg PO BID Qty: 180 4RF potassium chloride 20 mEq tablet extended release 20 meq PO DAILY Qty: 90 3RF nitroglycerin 0.4 mg tablet, sublingual See Rx Instructions .ROUTE .COMPLEX Qty: 25 3RF Dose Instruction: 0.4 MG SUBLINGUAL EVERY 5-15M NEEDED FOR CHEST PAIN Rx Instructions: 0.4 MG SUBLINGUAL EVERY 5-15M NEEDED FOR CHEST PAIN Discontinued hydrocodone-acetaminophen 5-325 mg tablet 1 tab PO TID PRN (Reason: pain) Referrals / Follow Up: Alberto Herr MD [Primary Care Provider] - Within 1 Week Disposition Disposition (needs filled in before D/C Order can be placed): Home, Self Care
--- NOTE | 2025-01-14 12:05 | PCM.DC.SUM ---
Providers Date of Admission: 01/13/25 Date of Discharge: 01/14/25 Primary Care Physician: Dr. Alberto Herr MD Reason For Visit: DIZZINESS/VERTIGO Diagnosis Discharge Diagnosis (1) Dizziness: Status: Acute Code(s): R42 - Dizziness and giddiness Plan # Dizziness/peripheral vertigo # Elevated troponin- suspected secondary to pts htn on presentation # History of heart failure with reduced ejection fraction # History of coronary artery disease #Hx COPD #GERD Medications at Discharge Home Medications aspirin 81 mg tablet,delayed release 81 mg PO DAILY@0800 heart health 09/09/18 loratadine 10 mg tablet 10 mg PO DAILY allergies 09/09/18 montelukast 10 mg tablet 10 mg PO DAILY allergies 09/09/18 multivitamin with folic acid 400 mcg tablet 1 tab PO DAILY vitamin 09/09/18 pantoprazole 20 mg tablet,delayed release 20 mg PO DAILY reflux 08/08/19 carvedilol 12.5 mg tablet 12.5 mg PO BID blood pressure #180 tabs 12/24/23 atorvastatin 40 mg tablet 40 mg PO DAILY cholesterol 07/11/24 cholecalciferol (vitamin D3) 10 mcg (400 unit) chewable tablet 10 mcg PO DAILY vitamin 07/11/24 potassium chloride 20 mEq tablet,extended release 20 meq PO DAILY supplement #90 tabs 08/08/24 albuterol sulfate 90 mcg/actuation aerosol inhaler 2 puff inhalation Q4 PRN wheezing 11/16/24 fluticasone fur. 100 mcg-umeclid 62.5 mcg-vilant 25 mcg inhalat.powder (Trelegy Ellipta) 1 ea inhalation DAILY breathing 11/16/24 sacubitril 49 mg-valsartan 51 mg tablet (Entresto) 1 tab PO BID heart #180 tabs 11/16/24 nitroglycerin 0.4 mg sublingual tablet See Rx Instructions .Route .COMPLEX chest pain #25 tabs 11/28/24 furosemide 40 mg tablet (Lasix) 40 mg PO BID diuretic #60 tabs 12/01/24 calcium 600 mg (as carbonate)-vitamin D3 10 mcg (400 unit) tablet 2 tab PO DAILY VITAMIN 01/13/25 dapagliflozin propanediol 10 mg tablet (Farxiga) 10 mg PO DAILY diabetes 01/13/25 isosorbide mononitrate 60 mg tablet,extended release 24 hr 60 mg PO DAILY heart 01/13/25 Hospital Course Summary of Care Provided Minutes Spent on Discharge: 24 Hospital Course: Per HPI: JESUS AYOUB, is a 85 F with a history of coronary artery disease, hypertension, GERD, COPD, CHF who presented to [facility] ED/09/27 with dizziness since 130 this morning. Patient got up to go to the bathroom and when she went back to her bed and laid down and turned over she began to feel like the room was spinning and like the bed was moving, due to this persisting patient came to the ED. In the ED blood pressure initially 180/79, heart rate 68 patient 99% on room air with a temperature of 97.6. Patient's lab workup fairly benign, EKG read demonstrated a left bundle branch block that is not new, UA unremarkable, CTA head and neck with no LVO, did have some left subclavian artery stenosis and biapical emphysema, chest x-ray with mild cardiomegaly but otherwise no acute abnormality. Patient was given Valium and Toradol for a slight occipital headache but due to persistent symptoms hospitalist contacted for admission for supportive care. Patient evaluated at bedside and reports that she did wake up around 1:30 in the morning, was able to ambulate to the bathroom and back without any symptoms and then she laid down and reports after she turned to her side she had the sudden symptoms and she did feel the room spinning in the bed moving, was also nauseous several times with no vomiting. She notes that symptoms have slowly improved and if further improved in the ED though still there, does not feel quite normal when she looks straight up but symptoms are reproduced when she looks her head to the left, again is improving slowly. Does note that for a while patient will get some chest pressure that lasts about half an hour and has no associations with anything, not having any at the time of exam. Does report she also gets some left arm aching from her left shoulder to her left elbow and notes that arm is a little bit tender to the touch when that happens it is worse with movement, does not sound that this is associated with her chest pressure at all and seems to be a separate process, denies any falls or other acute complaints INTERVAL HISTORY: Patient was admitted and supportive care provided, in the a.m. she worked with physical therapy, felt a little bit weak but overall better and all of her dizzy/vertiginous symptoms resolved, high suspicion that this was peripheral vertigo, patient and family comfortable discharging and following up with PCP with return precautions Physical Exam Narrative General: Alert, oriented, no apparent distress HEENT: Atraumatic, normocephalic Eyes: Anicteric, normal conjunctiva, extraocular movements grossly intact Neck: Supple Respiratory: Clear to auscultation bilaterally, normal respiratory effort Cardiovascular: Regular rate GI: Soft, nontender, nondistended Extremities: No edema Musculoskeletal: Moving all extremities Neuro: No overt focal neurological deficits Skin: No rashes appreciated Psych: Cooperative Weight / BMI Weight Weight: 63.3 kg Body Mass Index (BMI) 23.2 ABG / Lab / Microbiology Data 01/14/25 05:10 01/14/25 05:10 Laboratory: Laboratory Results - last 24 hr 01/14/25 05:10: WBC 7.4, RBC 3.83 L, Hgb 13.0, Hct 37.6, MCV 98.2, MCH 33.9 H, MCHC 34.6, RDW Std Deviation 44.8 H, RDW Coeff of [place] 12.4, Plt Count 162, MPV 9.3, Immature Gran % (Auto) 0.400, Neut % (Auto) 68.6, Lymph % (Auto) 20.8, [place] % (Auto) 9.4, Eos % (Auto) 0.5, Baso % (Auto) 0.3, Absolute Neuts (auto) 5.1, Absolute Lymphs (auto) 1.53, Nucleated RBC % 0, Sodium 136, Potassium 3.6, Chloride 101, Carbon Dioxide 22.9, Anion Gap 13, BUN 15, Creatinine 0.68 L, Estim Creat Clear Calc 44.58 L, Est GFR (MDRD) Non-Af 84, BUN/Creatinine Ratio 22.7 H, Glucose 97, Calcium 9.3 Radiography Diagnostic Testing: Radiology Impression Humerus X-Ray 01/13/25 13:15 IMPRESSION: DEGENERATIVE OSTEOARTHROSIS. NO ACUTE FINDINGS. Reading Location: [id number] D/C Instructions Discharge Diet: - (DASH diet) DC O2, CPAP, BIPAP Needs Home O2 Discharge instructions: No Meaningful Use Info Meaningful Use Meaningful Use Diagnoses (Choose all that apply): None applicable Ischemic Stroke Statin Dosing Therapy Reference: STATIN DOSE THERAPY REFERENCE: * Patients > 75 years receive moderate or high dose statin therapy. * Patients 75 years or YOUNGER should receive HIGH intensity statin dose unless contraindicated. You will be required to document reason for non-treatment if statin daily dose does not meet guidelines. HIGH DOSE STATIN THERAPY DAILY Atorvastatin > than or = to 40 mg Rosuvastatin > than or = to 20 mg Amlodipine + Atorvastatin > than or = to 2.5/40 mg Ezetimibe + Simvastatin 10/80 mg Simvastatin 80mg Discharge Plan Admission Admit Date/Time: 01/13/25 12:24 Primary Reason for Your Visit: Dizzy feeling Attending Provider: Miranda Tripathi Primary Care Provider: Alberto Herr Instructions Patient Instructions: BPPV, ED Fall Prevention Additional Instructions / Restrictions: -Please call your primary care provider's office upon discharge to schedule a hospital follow up within 1 week. -For any concerning signs or symptoms please call 911 or proceed to the nearest emergency department Discharge Orders/Prescriptions Prescriptions: Continued pantoprazole 20 mg tablet,delayed release (DR/EC) 20 mg PO DAILY albuterol sulfate 90 mcg/actuation HFA aerosol inhaler 2 puff inhalation Q4 PRN (Reason: wheezing) Trelegy Ellipta 100-62.5-25 mcg blister with device 1 ea inhalation DAILY sacubitril-valsartan [Entresto] 49-51 mg tablet 1 tab PO BID Qty: 180 3RF Patient Comments: PT STATES THIS HAS CAUSED HER SOME DIZZINESS. aspirin 81 MG tablet 81 mg PO DAILY@0800 montelukast 10 MG tablet 10 mg PO DAILY loratadine 10 MG tablet 10 mg PO DAILY multivitamin with folic acid 1 TABLET tablet 1 tab PO DAILY isosorbide mononitrate 60 mg tablet extended release 24 hr 60 mg PO DAILY dapagliflozin propanediol [Farxiga] 10 mg tablet 10 mg PO DAILY Patient Comments: PT STATES THIS HAS CAUSED HER SOME DIZZINESS. calcium carbonate-vitamin D3 600 mg-10 mcg (400 unit) tablet 2 tab PO DAILY cholecalciferol (vitamin D3) 10 mcg (400 unit) tablet,chewable 10 mcg PO DAILY atorvastatin 40 mg tablet 40 mg PO DAILY furosemide [Lasix] 40 mg tablet 40 mg PO BID Qty: 60 0RF carvedilol 12.5 mg tablet 12.5 mg PO BID Qty: 180 4RF potassium chloride 20 mEq tablet extended release 20 meq PO DAILY Qty: 90 3RF nitroglycerin 0.4 mg tablet, sublingual See Rx Instructions .ROUTE .COMPLEX Qty: 25 3RF Dose Instruction: 0.4 MG SUBLINGUAL EVERY 5-15M NEEDED FOR CHEST PAIN Rx Instructions: 0.4 MG SUBLINGUAL EVERY 5-15M NEEDED FOR CHEST PAIN Discontinued hydrocodone-acetaminophen 5-325 mg tablet 1 tab PO TID PRN (Reason: pain) Referrals / Follow Up: Alberto Herr MD [Primary Care Provider] - Within 1 Week Disposition Disposition (needs filled in before D/C Order can be placed): Home, Self Care Charges/Coding Visit Charges Inpatient E&M: 70757 Disch Hosp
[2025-01-14 14:07] VITALS: BP 147/79; PULSE 91; RESP 16; TEMP 36.3; O2SAT 96
== END 2025-01-14 14:28 | disposition home or self-care (01) ==
LOC: ED 11:28 → PCU 12:47
PROVIDERS: Admitting Provider Internal Medicine; Emergency Provider Emergency Medicine; PCP Internal Medicine; Visit Provider Internal Medicine
DX: H81.392 Other peripheral vertigo, left ear (principal); I11.0 Hypertensive heart disease with heart failure; I50.22 Chronic systolic (congestive) heart failure; J43.9 Emphysema, unspecified; I42.8 Other cardiomyopathies; R07.89 Other chest pain; R51.9 Headache, unspecified; I25.10 Atherosclerotic heart disease of native coronary artery without angina pectoris; I44.7 Left bundle-branch block, unspecified; E78.00 Pure hypercholesterolemia, unspecified; M25.522 Pain in left elbow; M25.512 Pain in left shoulder; K21.9 Gastro-esophageal reflux disease without esophagitis; Z79.82 Long term (current) use of aspirin; Z79.51 Long term (current) use of inhaled steroids; Z87.891 Personal history of nicotine dependence
CPT/HCPCS: 36415; 70496; 70498; 71045; 73060; 80048; 85025; 93005; 94640; 94668; 96372; 97162; 97165; 99221; 99285; Q9967; A4216; G0378